=== PATIENT | male | born 1930 | race Caucasian/White ===

== ENCOUNTER 2016-03-02 17:04 | Emergency (ER) | payer BC, OTHER ==
[~2016-03-02] VITALS: Ht 177.8 cm; Wt 96.3 kg
[~2016-03-02 17:04] MED LIST: ASPI81TA28 PO; CHOL100010 PO; CRG25 PO; GLIM4TAB2 PO; LISI-461 PO; METF-384 PO
[2016-03-02 17:08] VITALS: TEMP 36.6; Ht 177.8 cm; Wt 96.3 kg
[2016-03-02] MEDS ORDERED: GLIM4TAB2 PO (17:22)
[2016-03-02] MEDS ORDERED: DVN80 PO (17:22)
--- NOTE | 2016-03-02 17:22 | EMERGENCY ROOM VISIT NOTE ---
History Report prepared by Adan: Maik Ayala Under the Supervision of: Dr. Sarah Chavez M.D. 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 The patient's blood pressure reached 197/104 yesterday when he wasn't feeling well. His blood pressure is still elevated today. He saw his PCP four days ago for an annual check up. At that time his blood pressure was 110/60. The patient had a baby aspirin yesterday. He also complains of diarrhea and cramping of his bilateral hands. The patient denies vomiting. He has not had any recent medication changes. Source of History: patient Onset: yesterday Symptom Intensity: 197/104 Quality: other (hypertensive) Timing: other (persistent) Associated Symptoms: + diarrhea, No vomiting Review of Systems See HPI for pertinent positives & negatives. A total of 10 systems reviewed and were otherwise negative. Past Medical & Surgical Medical Problems: (1) Hypertension Nos Surgical Problems: (1) History of appendectomy Family History FH: myocardial infarction FHx: diabetes mellitus Heart disease Social History Smoking Status: Never Smoker Alcohol Use: none Drug Use: none Marital Status: Housing Status: lives with family Occupation Status: retired Current/Historical Medications Scheduled Aspirin (Aspirin Ec), 81 MG PO DAILY Carvedilol (Carvedilol), 25 MG PO BID Cholecalciferol (Vitamin D), 2,000 INTER.UNIT PO DAILY Glimepiride (Glimepiride), 4 MG PO QAM Glimepiride (Glimepiride), 0.5 TAB PO QPM Metformin Hcl (Glucophage), 1,000 MG PO BID Valsartan (Diovan), 80 MG PO DAILY Allergies Coded Allergies: No Known Allergies (Verified , 03/02/16) Physical Exam Vital Signs Date Time Temp Pulse Resp B/P Pulse Ox O2 Delivery O2 Flow Rate FiO2 03/02/16 19:58 71 20 155/81 97 Room Air 03/02/16 19:28 73 21 170/96 100 Room Air 03/02/16 19:09 83 16 206/112 99 Room Air 03/02/16 18:44 96 Room Air 1/21/17 18:44 94 03/02/16 18:43 92 20 208/107 98 Room Air 03/02/16 17:08 36.6 75 20 218/102 98 Room Air Physical Exam CONSTITUTIONAL: No acute distress. HEENT: No icterus, moist mucous membranes NECK: No meningismus, trachea is midline. CARDIOVASCULAR: Regular rate, normal perfusion RESPIRATORY: Unlabored breathing. Clear to auscultation. GASTROINTESTINAL: Non-tender GENITOURINARY: No flank tenderness MUSCULOSKELETAL: Full range of motion NEUROLOGIC: No acute gross focal deficits. PSYCHIATRIC: Normal affect SKIN: Normal for ethnicity. Medical Decision & Procedures Laboratory Results 03/02/16 17:29 Red Blood Count 5.38, Mean Corpuscular Volume 90.9, Mean Corpuscular Hemoglobin 33.1, Mean Corpuscular Hemoglobin Concent 36.4, Mean Platelet Volume 9.8, Neutrophils (%) (Auto) 58.8, Lymphocytes (%) (Auto) 26.6, Monocytes (%) (Auto) 10.1, Eosinophils (%) (Auto) 3.9, Basophils (%) (Auto) 0.3, Neutrophils # (Auto ) 4.44, Lymphocytes # (Auto) 2.00, Monocytes # (Auto) 0.76, Eosinophils # (Auto ) 0.29, Basophils # (Auto) 0.02 03/02/16 17:29 Test 03/02/16 17:29 White Blood Count 7.53 K/uL (4.8-10.8) Red Blood Count 5.38 M/uL (4.7-6.1) Hemoglobin 17.8 g/dL (14.0-18.0) Hematocrit 48.9 % (42-52) Mean Corpuscular Volume 90.9 fL (80-100) Mean Corpuscular Hemoglobin 33.1 pg (25-34) Mean Corpuscular Hemoglobin Concent 36.4 g/dl (32-36) Platelet Count 158 K/uL (130-400) Mean Platelet Volume 9.8 fL (7.4-10.4) Neutrophils (%) (Auto) 58.8 % Lymphocytes (%) (Auto) 26.6 % Monocytes (%) (Auto) 10.1 % Eosinophils (%) (Auto) 3.9 % Basophils (%) (Auto) 0.3 % Neutrophils # (Auto) 4.44 K/uL (1.4-6.5) Lymphocytes # (Auto) 2.00 K/uL (1.2-3.4) Monocytes # (Auto) 0.76 K/uL (0.11-0.59) Eosinophils # (Auto) 0.29 K/uL (0-0.5) Basophils # (Auto) 0.02 K/uL (0-0.2) RDW Standard Deviation 44.6 fL (36.4-46.3) RDW Coefficient of Variation 13.6 % (11.5-14.5) Immature Granulocyte % (Auto) 0.3 % Immature Granulocyte # (Auto) 0.02 K/uL (0.00-0.02) Anion Gap 9.0 mmol/L (3-11) Est Creatinine Clear Calc Drug Dose 50.1 ml/min Estimated GFR () 58.5 Estimated GFR (Non- 50.5 BUN/Creatinine Ratio 18.3 (10-20) Calcium Level 9.6 mg/dl (8.5-10.1) Magnesium Level 1.9 mg/dl (1.8-2.4) Troponin I < 0.015 ng/ml (0-0.045) Labs reviewed by ED physician. Medications Administered Medications (Trade) Dose Ordered Sig/Fabiana Route Start Time Stop Time Status Last Admin Dose Admin Clonidine HCl (Catapres Tab) 0.1 mg NOW ONCE PO 03/02/16 18:45 03/02/16 18:46 DC 03/02/16 18:47 0.1 MG ECG Indication: other (hypertension) Rate (beats per minute): 84 Rhythm: sinus rhythm Findings: no acute ischemic change, no ectopy ED Course 1707: Past medical records reviewed. The patient was evaluated in room B2. A complete history and physical examination was performed. 1845: Catapres Tab 0.1 mg PO. 1949: Discussed the case with Dr. Cruz, [place] [facility]. The patient will be evaluated. Medical Decision Differential diagnosis includes electrolyte abnormality. 85 y/o presented to ED with for evaluation of concern over HTN. Patient has felt increasingly and episodically unwell over the past several days to weeks. He feels flushed and ill at times and when his BP is checked at home it has been as high as ~ 190-210 when symptomatic. Patient presented to his PCP for a scheduled routine evaluation this last week at which time his BP was normal and he was subsequently discharged. However, since the PCP visit patient continues to have episodes of feeling very unwell which are associated with highly abnormal BP measurements at home. He is noted to be on carvedilol and diovan with no recent medication changes and he maintains he has been compliant with his medication regimen. ROS o/w negative other than mild diarrhea and possibly some GERD-like complaints without CP, SOB, AMS nor headache. Because patient's SBP has been both as high as 210 while symptomatic at home as well as as low as 110 while asymptomatic without clear etiology decision made to keep patient in hospital for additional treatment and evaluation. Clonidine 0.1mg PO ordered. Evaluation with [facility] hospitalist service, Dr. Cruz, arranged. Consults Time Called: 1944 Consulting Physician: Dr. Cruz, [place] [facility] Returned Call: 1949 1949: Discussed the case with Dr. Cruz, [place] [facility]. The patient will be evaluated. Impression Primary Impression: Hypertension Scribe Attestation The scribe's documentation has been prepared under my direction and personally reviewed by me in its entirety. I confirm that the note above accurately reflects all work, treatment, procedures, and medical decision making performed by me. Departure Information Dispostion Being Evaluated By Hospitalist Referrals Miguel Olivares M.D. (PCP) Patient Instructions [facility]
[2016-03-02 17:45] LABS: BASO % 0.3 %; BASO ABS # 0.02 K/uL (0-0.2); COMPLETE YES; EOS % 3.9 %; HEMATOCRIT 48.9 % (42-52); IG% 0.3 %; LYMPH % 26.6 %; MEAN CELL VOLUME 90.9 fL (80-100); MEAN CORPUSCULAR HEMOGLOBIN 33.1 pg (25-34); MEAN CORPUSCULAR HGB CONC 36.4 g/dl (32-36); MEAN PLATELET VOLUME 9.8 fL (7.4-10.4); MONO % 10.1 %; NEUT % 58.8 %; PLATELET COUNT 158 K/uL (130-400); RED BLOOD COUNT 5.38 M/uL (4.7-6.1); WHITE BLOOD COUNT 7.53 K/uL (4.8-10.8)
[2016-03-02 18:06] LABS: BLOOD UREA NITROGEN 24 mg/dl (7-18); BUN/CREATININE RATIO 18.3 (10-20); CALCIUM 9.6 mg/dl (8.5-10.1); CARBON DIOXIDE 27 mmol/L (21-32); CHLORIDE 104 mmol/L (98-107); GLUCOSE 158 mg/dl (70-99); MAGNESIUM 1.9 mg/dl (1.8-2.4); POTASSIUM 4.2 mmol/L (3.5-5.1); SODIUM 140 mmol/L (136-145)
[2016-03-02 18:44] VITALS: O2SAT 96
[2016-03-02] MEDS ORDERED: CLONIDINE HCL 0.1 MG TAB PO ONE (18:45)
[2016-03-02 20:34] VITALS: BP 100/71; PULSE 73; O2SAT 95
--- NOTE | 2016-03-02 20:42 | Medical Consult ---
Consultation Date of Consultation: Mar 02, 2016. Attending Physician: Reason for Consultation: Uncontrolled HTN 85 y/o M w/Hx HTN, Angina, mild CKD. Pt states that his BP has been difficult to control over the last few days. He states that he gets paresthesias in his hands when his BP rises. He has had a few bouts of diarrhea over the past few days but did not come in for that reason. He denies a fever, denies CP, denies N/V, GOMEZ or visual changes. The pts systolic pressure was initially over 190 however he responded well to single dose of Clonidine. His symptoms have resolved and he requested that he be sent home. He admits to dietary indiscretion with copious sodium intake but did not state that he was willing to cut down. Past Medical/Surgical History Medical Problems: (1) Atypical chest pain Status: Acute (2) Hypertension Status: Acute Family History FH: myocardial infarction FHx: diabetes mellitus Heart disease Social History Smoking Status: Never Smoker Drug Use: none Marital Status: Housing Status: lives with family Occupation Status: retired Allergies Coded Allergies: No Known Allergies (Verified , 03/02/16) Review of Systems Constitutional: No chills, No fever, No sweats Eyes: No eye pain, No worsening of vision ENT: No hearing loss, No nasal symptoms, No unusual epistaxis Respiratory: No cough, No sputum, No wheezing Cardiovascular: No PND, No chest pain, No orthopnea Abdomen: + diarrhea, No nausea, No pain, No vomiting Musculoskeletal: No joint pain, No muscle pain Genitourinary - Male: No dysuria, No hematuria Neurologic: + numbness/tingling, No memory loss, No paralysis, No weakness Psychiatric: + depression symptoms Endocrine: No fatigue Hematologic / Lymphatic: No abnormal bleeding/bruising Integumentary: No rash Allergic / Immunologic: No environmental allergies Physical Exam Date Time Temp Pulse Resp B/P Pulse Ox O2 Delivery O2 Flow Rate FiO2 03/02/16 19:58 71 20 155/81 97 Room Air 03/02/16 19:28 73 21 170/96 100 Room Air 03/02/16 19:09 83 16 206/112 99 Room Air 03/02/16 18:44 96 Room Air 03/02/16 18:44 94 03/02/16 18:43 92 20 208/107 98 Room Air 03/02/16 17:08 36.6 75 20 218/102 98 Room Air General Appearance: WD/WN, no apparent distress Head: normocephalic, atraumatic Eyes: normal inspection, EOMI ENT: normal ENT inspection, pharynx normal Neck: supple, no JVD Respiratory/Chest: chest non-tender, lungs clear, normal breath sounds Cardiovascular: regular rate, rhythm, no edema, no gallop Abdomen/GI: normal bowel sounds, non tender, soft Back: normal inspection, no CVA tenderness, no muscle spasm, normal range of motion Extremities/Musculoskelatal: normal inspection, normal range of motion Neurologic/Psych: machine hand II-XII nml as tested, no motor/sensory deficits, alert, normal mood/affect, normal reflexes, oriented x 3 Skin: normal color, warm/dry, no rash Laboratory Results Last 24 Hours Test 03/02/16 17:29 White Blood Count 7.53 K/uL Red Blood Count 5.38 M/uL Hemoglobin 17.8 g/dL Hematocrit 48.9 % Mean Corpuscular Volume 90.9 fL Mean Corpuscular Hemoglobin 33.1 pg Mean Corpuscular Hemoglobin Concent 36.4 g/dl Platelet Count 158 K/uL Mean Platelet Volume 9.8 fL Neutrophils (%) (Auto) 58.8 % Lymphocytes (%) (Auto) 26.6 % Monocytes (%) (Auto) 10.1 % Eosinophils (%) (Auto) 3.9 % Basophils (%) (Auto) 0.3 % Neutrophils # (Auto) 4.44 K/uL Lymphocytes # (Auto) 2.00 K/uL Monocytes # (Auto) 0.76 K/uL Eosinophils # (Auto) 0.29 K/uL Basophils # (Auto) 0.02 K/uL RDW Standard Deviation 44.6 fL RDW Coefficient of Variation 13.6 % Immature Granulocyte % (Auto) 0.3 % Immature Granulocyte # (Auto) 0.02 K/uL Sodium Level 140 mmol/L Potassium Level 4.2 mmol/L Chloride Level 104 mmol/L Carbon Dioxide Level 27 mmol/L Anion Gap 9.0 mmol/L Blood Urea Nitrogen 24 mg/dl Creatinine 1.30 mg/dl Est Creatinine Clear Calc Drug Dose 50.1 ml/min Estimated GFR () 58.5 Estimated GFR (Non- 50.5 BUN/Creatinine Ratio 18.3 Random Glucose 158 mg/dl Calcium Level 9.6 mg/dl Magnesium Level 1.9 mg/dl Troponin I < 0.015 ng/ml Assessment & Plan EKG: sinus , RBBB, LAFB - no change form previous 85 y/o M w/Hx HTN, Angina, mild CKD. Pt states that his BP has been difficult to control over the last few days. He states that he gets paresthesias in his hands when his BP rises. He has had a few bouts of diarrhea over the past few days but did not come in for that reason. He denies a fever, denies CP, denies N/V, GOMEZ or visual changes. The pts systolic pressure was initially over 190 however he responded well to single dose of Clonidine. His symptoms have resolved and he requested that he be sent home. He admits to dietary indiscretion with copious sodium intake but did not state that he was willing to cut down. 1) Poorly controlled HTN - can lead to symptoms - paresthesias reported - Pt is following up with his primary MD - We have advised on dietary discretion and reduced sodium intake as an essential first step. If he is unable to comply with this we would recommend HS BP checks and addition of Clonidine QHS for SBP > 165. Although additional diuretics would be prudent with his reported salt intake, he may have had issues with an elevated creatinine previously. Would advise him to return to the hospital if he develops CP or neuro symptoms. 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 Total time for this consult - med rec - review of records, EKG - discussion with pt./ER attending 30 min
[2016-03-03] MEDS ORDERED: BLOOD PRESSURE PO (16:13)
[2016-03-04] MEDS ORDERED: NXM/40 PO (14:55)
[2016-03-04] MEDS ORDERED: SIME1CHW17 PO (14:55)
[2016-03-15] MEDS ORDERED: NXM/40 PO (10:51)
== END 2016-03-02 20:36 | disposition home or self-care (01) ==
LOC: C.EDB 17:06
DX: I10 Essential (primary) hypertension (principal); R19.7 Diarrhea, unspecified; I20.9 Angina pectoris, unspecified; Z79.82 Long term (current) use of aspirin; Z83.3 Family history of diabetes mellitus

== ENCOUNTER 2016-03-03 15:46 | Observation (INO) | payer BC ==
[~2016-03-03] VITALS: Ht 180.3 cm; Wt 95.3 kg
[~2016-03-03 15:46] MED LIST changes: +DVN80 PO; -LISI-461 PO
[2016-03-03] MEDS ORDERED: ONDANSETRON INJ 2 MG/ML 2 ML VIAL IV STA (16:01)
[2016-03-03] MEDS ORDERED: NITROGLYCERIN 0.4 MG SL PER TAB CHARGE SL STA (16:02)
[2016-03-03] MEDS ORDERED: BLOOD PRESSURE PO (16:13)
[2016-03-03] MEDS ORDERED: NITROGLYCERIN OINT 2% 1GM PACKET EXT ONE (16:15)
[2016-03-03 16:28] LABS: BASO % 0.1 %; BASO ABS # 0.01 K/uL (0-0.2); COMPLETE YES; EOS % 2.7 %; HEMATOCRIT 45.7 % (42-52); IG% 0.3 %; LYMPH % 30.9 %; LYMPH ABS # 2.29 K/uL (1.2-3.4); MEAN CELL VOLUME 88.7 fL (80-100); MEAN CORPUSCULAR HEMOGLOBIN 32.4 pg (25-34); MEAN CORPUSCULAR HGB CONC 36.5 g/dl (32-36); MEAN PLATELET VOLUME 9.6 fL (7.4-10.4); MONO % 9.3 %; NEUT % 56.7 %; PLATELET COUNT 152 K/uL (130-400); RED BLOOD COUNT 5.15 M/uL (4.7-6.1); WHITE BLOOD COUNT 7.42 K/uL (4.8-10.8)
[2016-03-03 16:43] LABS: ALT/SGPT 24 U/L (12-78); AST/SGOT 14 U/L (15-37); BLOOD UREA NITROGEN 21 mg/dl (7-18); BUN/CREATININE RATIO 16.1 (10-20); CALCIUM 8.9 mg/dl (8.5-10.1); CARBON DIOXIDE 24 mmol/L (21-32); CHLORIDE 104 mmol/L (98-107); GLUCOSE 181 mg/dl (70-99); POTASSIUM 4.3 mmol/L (3.5-5.1); SODIUM 139 mmol/L (136-145)
[2016-03-03 16:48] LABS: ALKALINE PHOSPHATASE 68 U/L (45-117); CKMB/CK RATIO 3.2 (0-3.0)
[2016-03-03] MEDS ORDERED: NSS + 20MEQ KCL 1000ML 1,000 ML IV SCH ×2 (17:33→17:45)
[2016-03-03] MEDS ORDERED: OPTIRAY 320 IV PRN (17:45)
--- NOTE | 2016-03-03 18:31 | DIAGNOSTIC IMAGING REPORT ---
CT ANGIOGRAM OF THE CHEST, ABDOMEN, AND PELVIS CLINICAL HISTORY: Chest and abdominal pain. Hypertension. Possible aortic dissection. COMPARISON STUDY: CT scan the abdomen pelvis dated 05/04/2015 TECHNIQUE: Before and following the IV administration of 117. mL of [id number], CT angiogram of the chest, abdomen, and pelvis was performed from the thoracic inlet to the proximal femurs. Images are reviewed in the axial, sagittal, and coronal planes. IV contrast was administered without complication. Imaged portions of the thyroid gland are normal in appearance. MIP imaging was performed. CT DOSE: 1429.20 mGy.cm FINDINGS: CHEST: Thoracic aorta: The thoracic aorta is normal in course and caliber, noting standard 3-vessel arch anatomy. No aneurysm or dissection is seen. Pulmonary vasculature: The pulmonary trunk is normal in caliber. There are no filling defects in the main, lobar, or segmental pulmonary branches to suggest pulmonary embolus. HEART: There are coronary artery calcifications present. Lungs and pleural spaces: No pleural effusions are visualized. There is no focal pulmonary consolidation. There is evidence for interstitial lung disease with subpleural reticulation. No honeycombing or traction bronchiectasis is visualized. Mediastinum: There are minimally enlarged mediastinal lymph nodes. Hellen: Hilar lymph nodes are the upper limits of normal in size Axilla: There is no evidence of pathologic axillary lymphadenopathy ABDOMEN AND PELVIS: Liver: No hepatic masses are visualized this arterial phase study. Gallbladder: Unremarkable. Spleen: Normal in size and attenuation. Pancreas: Unremarkable. Adrenal glands: Unremarkable. Kidneys: There are multiple bilateral renal cysts. The largest on the right measures 11.7 cm. The largest on the left measures 5.3 cm. Bowel: There are no transition zones indicate bowel obstruction. There is no evidence of acute diverticulitis. There is no evidence of acute appendicitis. Peritoneum: There is no intraperitoneal free air or abdominal ascites. Abdominal aorta: There is no evidence of aortic aneurysm or dissection. There is no evidence of celiac, superior mesenteric, or renal artery stenosis. The inferior mesenteric artery is patent. There is no evidence of common or external iliac artery stenosis. Adenopathy: None. Pelvic viscera: The prostate is enlarged. Skeletal structures: No destructive osseous lesions are seen. IMPRESSION: 1. No evidence of thoracic or abdominal aortic aneurysm or dissection 2. No evidence of superior mesenteric, celiac, or renal artery stenosis 3. No evidence of bowel obstruction. No evidence of free air 4. Multiple large renal cysts 5. Mild interstitial lung disease. Mildly prominent mediastinal lymph nodes, possibly reactive. Electronically signed by: Dmitry Carranza M.D. 03/03/2016 6:30 PM Dictated Date/Time: 03/03/2016 6:20 PM
[2016-03-03] MEDS ORDERED: ONDANSETRON INJ 2 MG/ML 2 ML VIAL IV PRN (19:15)
[2016-03-03] MEDS ORDERED: ZOLPIDEM TARTRATE 5 MG TAB PO PRN (19:15)
[2016-03-03] MEDS ORDERED: PROMETHAZINE HCL INJ 12.5 MG in SODIUM CHLORIDE 0.9% 50ML 50 ML IV PRN (19:15)
[2016-03-03] MEDS ORDERED: GLUCOSE 10 TABS/TUBE PO PRN (19:15)
[2016-03-03] MEDS ORDERED: DEXTROSE 50% 50 ML SYR IV PRN (19:15)
[2016-03-03] MEDS ORDERED: BISACODYL 10 MG SUPP PR PRN (19:15)
[2016-03-03] MEDS ORDERED: MoRPHine SULFATE 2 MG/ML CARP IV PRN (19:15)
[2016-03-03] MEDS ORDERED: NITROGLYCERIN 0.4 MG SL PER TAB CHARGE SL PRN (19:15)
[2016-03-03] MEDS ORDERED: ACETAMINOPHEN 325 MG TAB PO PRN (19:15)
[2016-03-03] MEDS ORDERED: GLUCAGON FOR INJ 1 MG VIAL SQ PRN (19:15)
[2016-03-03] MEDS ORDERED: LORAZEPAM 2 MG/ML 1 ML VIAL IV PRN (19:15)
[2016-03-03] MEDS ORDERED: GLUCOSE 40% GEL 15 GM TUBE PO PRN (19:15)
[2016-03-03] MEDS ORDERED: DiphenhydrAMINE HCL 50 MG/ML VIAL IV PRN (19:15)
[2016-03-03] MEDS ORDERED: MAGNESIUM HYDROXIDE SUSP 30 ML UDC PO PRN (19:15)
[2016-03-03] MEDS ORDERED: IV FLUIDS COMPLETED PRN (19:45)
[2016-03-03 20:01] LABS: CKMB/CK RATIO 3.9 (0-3.0)
--- NOTE | 2016-03-03 20:15 | EMERGENCY ROOM VISIT NOTE ---
History Report prepared by Adan: Maik Ayala Under the Supervision of: Dr. Arsenio Martinez M.D. First contact with patient: 15:57 Chief Complaint: HYPERTENSION Stated Complaint: HIGH BP,ABD BLOATING History of Present Illness The patient is an 85 year old male who presents to the Emergency Room with complaints of periodic band-like pressure across his chest, worsening over the past 24 hours. The patient was in the ED yesterday for hypertension. He started to experience the burning in his chest while he was in the ED. The patient also complains of nausea, diarrhea, and bloating of the abdomen. He denies any syncopal episodes, blood in his stools, or urinary symptoms. Source of History: patient Onset: yesterday Position: chest Quality: pressure Timing: other (periodic) Associated Symptoms: + diarrhea, + nausea, No LOC, No hematochezia, No urinary symptoms Review of Systems See HPI for pertinent positives & negatives. A total of 10 systems reviewed and were otherwise negative. Past Medical & Surgical Medical Problems: (1) Hypertension Nos (2) Hypokalemia Surgical Problems: (1) History of appendectomy Family History FH: myocardial infarction FHx: diabetes mellitus Heart disease Social History Smoking Status: Never Smoker Alcohol Use: none Drug Use: none Marital Status: Housing Status: lives with family Occupation Status: retired Current/Historical Medications Scheduled Aspirin (Aspirin Ec), 81 MG PO DAILY Carvedilol (Carvedilol), 25 MG PO BID Cholecalciferol (Vitamin D), 2,000 INTER.UNIT PO DAILY Glimepiride (Glimepiride), 4 MG PO QAM Glimepiride (Glimepiride), 0.5 TAB PO QPM Metformin Hcl (Glucophage), 1,000 MG PO BID Valsartan (Diovan), 80 MG PO DAILY [Blood Pressure ], 1 TAB PO DIRECTED Allergies Coded Allergies: No Known Allergies (Verified , 03/03/16) Physical Exam Vital Signs Date Time Temp Pulse Resp B/P Pulse Ox O2 Delivery O2 Flow Rate FiO2 03/03/16 20:00 78 18 118/63 98 03/03/16 18:03 74 16 129/67 99 03/03/16 16:52 75 03/03/16 16:38 78 18 118/73 95 Room Air 03/03/16 16:26 77 18 112/71 94 Room Air 03/03/16 16:20 67 18 157/81 97 Room Air 03/03/16 15:52 37.2 72 18 173/77 96 Room Air Physical Exam GENERAL: Patient is anxious appearing and in mild distress. HEENT: No acute trauma, normocephalic atraumatic, mucous membranes moist, no nasal congestion, no scleral icterus. NECK: No stridor, no adenopathy, no meningismus, trachea is midline. LUNGS: No dyspnea. Clear to auscultation and equal bilaterally. No wheeze, no rhonchi. HEART: Regular rate and rhythm. No murmurs, rubs, gallops appreciated. ABDOMEN: Soft, nontender, bowel sounds positive, no masses appreciated, no peritonitis. BACK: No midline tenderness, no CVA tenderness EXTREMITIES: Normal motion all extremities, no cyanosis, no edema. NEUROLOGIC: Alert and oriented, no acute motor or sensory deficits, no focal weakness, cranial nerves grossly intact. SKIN: No rash, no jaundice, no diaphoresis. Medical Decision & Procedures ER Provider Diagnostic Interpretation: CT results as stated below per interpretation by me and the radiologist: CT ANGIOGRAM OF THE CHEST, ABDOMEN, AND PELVIS CLINICAL HISTORY: Chest and abdominal pain. Hypertension. Possible aortic dissection. COMPARISON STUDY: CT scan the abdomen pelvis dated 05/04/2015 TECHNIQUE: Before and following the IV administration of 117. mL of [id number], CT angiogram of the chest, abdomen, and pelvis was performed from the thoracic inlet to the proximal femurs. Images are reviewed in the axial, sagittal, and coronal planes. IV contrast was administered without complication. Imaged portions of the thyroid gland are normal in appearance. MIP imaging was performed. CT DOSE: 1429.20 mGy.cm FINDINGS: CHEST: Thoracic aorta: The thoracic aorta is normal in course and caliber, noting standard 3-vessel arch anatomy. No aneurysm or dissection is seen. Pulmonary vasculature: The pulmonary trunk is normal in caliber. There are no filling defects in the main, lobar, or segmental pulmonary branches to suggest pulmonary embolus. HEART: There are coronary artery calcifications present. Lungs and pleural spaces: No pleural effusions are visualized. There is no focal pulmonary consolidation. There is evidence for interstitial lung disease with subpleural reticulation. No honeycombing or traction bronchiectasis is visualized. Mediastinum: There are minimally enlarged mediastinal lymph nodes. Hellen: Hilar lymph nodes are the upper limits of normal in size Axilla: There is no evidence of pathologic axillary lymphadenopathy ABDOMEN AND PELVIS: Liver: No hepatic masses are visualized this arterial phase study. Gallbladder: Unremarkable. Spleen: Normal in size and attenuation. Pancreas: Unremarkable. Adrenal glands: Unremarkable. Kidneys: There are multiple bilateral renal cysts. The largest on the right measures 11.7 cm. The largest on the left measures 5.3 cm. Bowel: There are no transition zones indicate bowel obstruction. There is no evidence of acute diverticulitis. There is no evidence of acute appendicitis. Peritoneum: There is no intraperitoneal free air or abdominal ascites. Abdominal aorta: There is no evidence of aortic aneurysm or dissection. There is no evidence of celiac, superior mesenteric, or renal artery stenosis. The inferior mesenteric artery is patent. There is no evidence of common or external iliac artery stenosis. Adenopathy: None. Pelvic viscera: The prostate is enlarged. Skeletal structures: No destructive osseous lesions are seen. IMPRESSION: 1. No evidence of thoracic or abdominal aortic aneurysm or dissection 2. No evidence of superior mesenteric, celiac, or renal artery stenosis 3. No evidence of bowel obstruction. No evidence of free air 4. Multiple large renal cysts 5. Mild interstitial lung disease. Mildly prominent mediastinal lymph nodes, possibly reactive. Electronically signed by: Dmitry Carranza M.D. 03/03/2016 6:30 PM Dictated Date/Time: 03/03/2016 6:20 PM Laboratory Results 03/03/16 16:16 Red Blood Count 5.15, Mean Corpuscular Volume 88.7, Mean Corpuscular Hemoglobin 32.4, Mean Corpuscular Hemoglobin Concent 36.5, Mean Platelet Volume 9.6, Neutrophils (%) (Auto) 56.7, Lymphocytes (%) (Auto) 30.9, Monocytes (%) (Auto) 9.3, Eosinophils (%) (Auto) 2.7, Basophils (%) (Auto) 0.1, Neutrophils # (Auto) 4.21, Lymphocytes # (Auto) 2.29, Monocytes # (Auto) 0.69, Eosinophils # (Auto) 0.20, Basophils # (Auto) 0.01 03/03/16 16:16 Test 03/03/16 16:16 03/03/16 19:28 White Blood Count 7.42 K/uL (4.8-10.8) Red Blood Count 5.15 M/uL (4.7-6.1) Hemoglobin 16.7 g/dL (14.0-18.0) Hematocrit 45.7 % (42-52) Mean Corpuscular Volume 88.7 fL (80-100) Mean Corpuscular Hemoglobin 32.4 pg (25-34) Mean Corpuscular Hemoglobin Concent 36.5 g/dl (32-36) Platelet Count 152 K/uL (130-400) Mean Platelet Volume 9.6 fL (7.4-10.4) Neutrophils (%) (Auto) 56.7 % Lymphocytes (%) (Auto) 30.9 % Monocytes (%) (Auto) 9.3 % Eosinophils (%) (Auto) 2.7 % Basophils (%) (Auto) 0.1 % Neutrophils # (Auto) 4.21 K/uL (1.4-6.5) Lymphocytes # (Auto) 2.29 K/uL (1.2-3.4) Monocytes # (Auto) 0.69 K/uL (0.11-0.59) Eosinophils # (Auto) 0.20 K/uL (0-0.5) Basophils # (Auto) 0.01 K/uL (0-0.2) RDW Standard Deviation 42.5 fL (36.4-46.3) RDW Coefficient of Variation 13.2 % (11.5-14.5) Immature Granulocyte % (Auto) 0.3 % Immature Granulocyte # (Auto) 0.02 K/uL (0.00-0.02) Anion Gap 11.0 mmol/L (3-11) Est Creatinine Clear Calc Drug Dose 50.5 ml/min Estimated GFR () 58.5 Estimated GFR (Non- 50.5 BUN/Creatinine Ratio 16.1 (10-20) Calcium Level 8.9 mg/dl (8.5-10.1) Total Bilirubin 0.6 mg/dl (0.2-1) Direct Bilirubin 0.1 mg/dl (0-0.2) Aspartate Amino Transf (AST/SGOT) 14 U/L (15-37) Alanine Aminotransferase (ALT/SGPT) 24 U/L (12-78) Alkaline Phosphatase 68 U/L (45-117) Total Protein 7.4 gm/dl (6.4-8.2) Albumin 3.9 gm/dl (3.4-5.0) Amylase Level 71 U/L (25-115) Lipase 466 U/L (73-393) Total Creatine Kinase 44 U/L (39-308) Creatine Kinase MB 1.7 ng/ml (0.5-3.6) Creatine Kinase MB Ratio 3.9 (0-3.0) Troponin I < 0.015 ng/ml (0-0.045) Laboratory results as reviewed by me. Medications Administered Medications (Trade) Dose Ordered Sig/Fabiana Route Start Time Stop Time Status Last Admin Dose Admin Ondansetron HCl (Zofran Inj) 4 mg NOW STAT IV 03/03/16 16:01 03/03/16 16:02 DC 03/03/16 16:21 4 MG Nitroglycerin 0.4 mg 0.4 mg NOW STAT SL 03/03/16 16:02 03/03/16 16:04 DC 03/03/16 16:21 0.4 MG Potassium Chloride/Sodium Chloride (Nss + 20meq KCl 1000ml) 1,000 ml @ 100 mls/hr Q10H IV 03/03/16 17:45 03/04/16 03:44 03/03/16 18:28 100 MLS/HR ECG Indication: chest pain Rate (beats per minute): 70 Rhythm: normal sinus Findings: T-wave inversion (Anterior), no acute ischemic change, no ectopy Comparison ECG Date: 02 March 2016 Change: When compared to EKG yesterday, ST depressions anteriorly have improved. There is a bifascicular block similar to yesterday. T wave inversions anteriorly are new compared to older EKGs. ED Course 1550: The patient was evaluated in room B3b. A complete history and physical exam was performed. 1601: Zofran 4 mg IV. 1602: Nitroglycerin 0.4 mg SL. 1615: Nitroglycerin 2 % Ointment 1 inch EXT. 1715: The patient feels a lot better but his stomach is rumbling, and he thinks something might be wrong. 1720: [facility] The patient will be evaluated. Medical Decision Differential: Cholecystitis, Gallbladder disfunction, Hepatic Disfunction, Gastritis/PUD, Pancreatitis, ACS, Aortic Pathology, amongst other pathologies entertained. 85 yr old male arrives for second day with pressure like band across bilateral lower chest, associated nausea, and feeling of stomach bloating. Review EKG actually somewhat improved from yesterday though suspect lead placement. There is evidence of changes compared to older ekgs. Trop negative thus may possibly unstable angina given on and off symptoms. Resolved with improvement in HTN. Abdomen is benign but given symptoms, elevated Lipase, HTN, seems reasonable getting ct abdomen and after discussion with hospitalist will make this CTA C/A/ P to rule out other disease. Given worsening symptoms seems reasonable bringing in for cardiac rule out and further monitoring. Consults Time Called: 1705 Consulting Physician: Dr. Robertson, [facility] Returned Call: 1720 1720: Discuss[facility] the case [facility] Dr[facility] The patient will be evaluated. Impression Primary Impression: Chest pressure Additional Impressions: HTN (hypertension) EKG abnormalities Scribe Attestation The scribe's documentation has been prepared under my direction and personally reviewed by me in its entirety. I confirm that the note above accurately reflects all work, treatment, procedures, and medical decision making performed by me. Departure Information Dispostion Being Evaluated By Hospitalist Referrals Miguel Olivares M.D. (PCP) Patient Instructions My [facility] Problem Qualifiers Additional Impressions: HTN (hypertension) Hypertension type: essential hypertension Qualified Codes: I10 - Essential ( primary) hypertension
[2016-03-03 20:39] VITALS: BP 118/70; PULSE 71; TEMP 36.6; O2SAT 96; Ht 180.3 cm; Wt 95.3 kg
--- NOTE | 2016-03-03 20:50 | History and Physical ---
History & Physical Date & Time of Service: Mar 03, 2016 at 20:42 Chief Complaint: Chest Pain, Hypokalemia Primary Care Physician: Miguel Olivares M.D. History of Present Illness Source: patient, spouse The patient is an 85-year-old male who presents to the emergency department with complaint of intermittent and light pressure across his chest has been gradually worsening over the past 24 hours since his visit in the emergency department last night being evaluated for volatile blood pressure. He's also had some intermittent nausea and bloating in his abdomen, along with a couple of loose stools. Past Medical/Surgical History Medical Problems: (1) Hypertension Nos Status: Chronic Surgical Problems: (1) History of appendectomy Status: Resolved Family History FH: myocardial infarction FHx: diabetes mellitus Heart disease Social History Smoking Status: Never Smoker Smokeless Tobacco Use: No Alcohol Use: none Drug Use: none Marital Status: Housing status: lives with family Occupational Status: retired Multi-Drug Resistant Organisms History of MDRO: No Allergies Coded Allergies: No Known Allergies (Verified , 03/03/16) Home Medications Scheduled Aspirin (Aspirin Ec), 81 MG PO DAILY Carvedilol (Carvedilol), 25 MG PO BID Cholecalciferol (Vitamin D), 2,000 INTER.UNIT PO DAILY Glimepiride (Glimepiride), 4 MG PO QAM Glimepiride (Glimepiride), 0.5 TAB PO QPM Metformin Hcl (Glucophage), 1,000 MG PO BID Valsartan (Diovan), 80 MG PO DAILY [Blood Pressure ], 1 TAB PO DIRECTED Review of Systems The patient denies lower extremity swelling, vision change, hearing change, sore throat, fevers, chills, sweats, blood in urine or stool, dysuria, urinary frequency or urgency, headache, rash, abnormal bruising or bleeding, imbalance, focal weakness, numbness or tingling in arms or legs, arthralgias or myalgias, back or neck pain, night sweats, or allergy symptoms. The review of systems is otherwise negative other than for that already noted above, and at least 10 systems have been reviewed. Physical Exam Vital Signs Date Time Temp Pulse Resp B/P Pulse Ox O2 Delivery O2 Flow Rate FiO2 03/03/16 20:00 78 18 118/63 98 03/03/16 18:03 74 16 129/67 99 03/03/16 16:52 75 03/03/16 16:38 78 18 118/73 95 Room Air 03/03/16 16:26 77 18 112/71 94 Room Air 03/03/16 16:20 67 18 157/81 97 Room Air 03/03/16 15:52 37.2 72 18 173/77 96 Room Air The patient is awake, well-developed and adequately nourished, alert and oriented 3, normocephalic and atraumatic, lying in bed and in no acute distress. HEENT--PERRL, EOMI, mucous membranes and oropharynx dry. Neck--supple, no JVD or bruits, thyroid normal, trachea midline, no adenopathy. Heart--normal S1 and S2, no extra beats, no murmurs, rubs or gallops. Lungs--clear bilaterally with good air movement, no respiratory distress, no accessory muscle use. Abdomen--normal bowel sounds and soft, nontender and nondistended, no hernias or masses, no organomegaly, mildly tympanitic. Extremities--no cyanosis, clubbing or edema. There are good distal pulses b/l. Dermatologic--normal skin turgor, normal color, warm and dry, no abnormal lymph nodes, no rash. Neurologic--cranial nerves II through XII grossly intact, motor and sensory examination normal. Rheumatologic--normal range of motion, nontender, muscles and joints. Psychiatric--flat affect. Diagnostics Laboratory Results Results Past 24 Hours Test 03/03/16 16:16 03/03/16 19:28 03/03/16 20:28 Range/Units White Blood Count 7.42 4.8-10.8 K/uL Red Blood Count 5.15 4.7-6.1 M/uL Hemoglobin 16.7 14.0-18.0 g/dL Hematocrit 45.7 42-52 % Mean Corpuscular Volume 88.7 80-100 fL Mean Corpuscular Hemoglobin 32.4 25-34 pg Mean Corpuscular Hemoglobin Concent 36.5 32-36 g/dl Platelet Count 152 130-400 K/uL Mean Platelet Volume 9.6 7.4-10.4 fL Neutrophils (%) (Auto) 56.7 % Lymphocytes (%) (Auto) 30.9 % Monocytes (%) (Auto) 9.3 % Eosinophils (%) (Auto) 2.7 % Basophils (%) (Auto) 0.1 % Neutrophils # (Auto) 4.21 1.4-6.5 K/uL Lymphocytes # (Auto) 2.29 1.2-3.4 K/uL Monocytes # (Auto) 0.69 0.11-0.59 K/uL Eosinophils # (Auto) 0.20 0-0.5 K/uL Basophils # (Auto) 0.01 0-0.2 K/uL RDW Standard Deviation 42.5 36.4-46.3 fL RDW Coefficient of Variation 13.2 11.5-14.5 % Immature Granulocyte % (Auto) 0.3 % Immature Granulocyte # (Auto) 0.02 0.00-0.02 K/uL Sodium Level 139 136-145 mmol/L Potassium Level 4.3 3.5-5.1 mmol/L Chloride Level 104 98-107 mmol/L Carbon Dioxide Level 24 21-32 mmol/L Anion Gap 11.0 3-11 mmol/L Blood Urea Nitrogen 21 7-18 mg/dl Creatinine 1.30 0.60-1.40 mg/dl Est Creatinine Clear Calc Drug Dose 50.5 ml/min Estimated GFR () 58.5 Estimated GFR (Non- 50.5 BUN/Creatinine Ratio 16.1 10-20 Random Glucose 181 70-99 mg/dl Calcium Level 8.9 8.5-10.1 mg/dl Total Bilirubin 0.6 0.2-1 mg/dl Direct Bilirubin 0.1 0-0.2 mg/dl Aspartate Amino Transf (AST/SGOT) 14 15-37 U/L Alanine Aminotransferase (ALT/SGPT) 24 12-78 U/L Alkaline Phosphatase 68 45-117 U/L Total Creatine Kinase 50 44 39-308 U/L Creatine Kinase MB 1.6 1.7 0.5-3.6 ng/ml Creatine Kinase MB Ratio 3.2 3.9 0-3.0 Troponin I < 0.015 < 0.015 0-0.045 ng/ml Total Protein 7.4 6.4-8.2 gm/dl Albumin 3.9 3.4-5.0 gm/dl Amylase Level 71 25-115 U/L Lipase 466 73-393 U/L Bedside Glucose 210 70-99 mg/dl Diagnostic Radiology Patient Name: CONCHITA CRUZ Unit Number: [id number] Dictated: 03/03/161819 Transcribed: 03/03/161819 ARG Printed Date/Time: [~ rep prt dt]/[~ rep prt tm] [~ rep ct labl] - [~ rep ct ivnm] [facility] [place] [address] Dictated: 03/03/161819 Transcribed: 03/03/161819 ARG Printed Date/Time: [~ rep prt dt]/[~ rep prt tm] [~ rep ct labl] - [~ rep ct ivnm] [~ rep ct add3]] CT ANGIOGRAM OF THE CHEST, ABDOMEN, AND PELVIS CLINICAL HISTORY: Chest and abdominal pain. Hypertension. Possible aortic dissection. COMPARISON STUDY: CT scan the abdomen pelvis dated 05/04/2015 TECHNIQUE: Before and following the IV administration of 117. mL of [id number], CT angiogram of the chest, abdomen, and pelvis was performed from the thoracic inlet to the proximal femurs. Images are reviewed in the axial, sagittal, and coronal planes. IV contrast was administered without complication. Imaged portions of the thyroid gland are normal in appearance. MIP imaging was performed. CT DOSE: 1429.20 mGy.cm FINDINGS: CHEST: Thoracic aorta: The thoracic aorta is normal in course and caliber, noting standard 3-vessel arch anatomy. No aneurysm or dissection is seen. Pulmonary vasculature: The pulmonary trunk is normal in caliber. There are no filling defects in the main, lobar, or segmental pulmonary branches to suggest pulmonary embolus. HEART: There are coronary artery calcifications present. Lungs and pleural spaces: No pleural effusions are visualized. There is no focal pulmonary consolidation. There is evidence for interstitial lung disease with subpleural reticulation. No honeycombing or traction bronchiectasis is visualized. Mediastinum: There are minimally enlarged mediastinal lymph nodes. Hellen: Hilar lymph nodes are the upper limits of normal in size Axilla: There is no evidence of pathologic axillary lymphadenopathy ABDOMEN AND PELVIS: Liver: No hepatic masses are visualized this arterial phase study. Gallbladder: Unremarkable. Spleen: Normal in size and attenuation. Pancreas: Unremarkable. Adrenal glands: Unremarkable. Kidneys: There are multiple bilateral renal cysts. The largest on the right measures 11.7 cm. The largest on the left measures 5.3 cm. Bowel: There are no transition zones indicate bowel obstruction. There is no evidence of acute diverticulitis. There is no evidence of acute appendicitis. Peritoneum: There is no intraperitoneal free air or abdominal ascites. Abdominal aorta: There is no evidence of aortic aneurysm or dissection. There is no evidence of celiac, superior mesenteric, or renal artery stenosis. The inferior mesenteric artery is patent. There is no evidence of common or external iliac artery stenosis. Adenopathy: None. Pelvic viscera: The prostate is enlarged. Skeletal structures: No destructive osseous lesions are seen. IMPRESSION: 1. No evidence of thoracic or abdominal aortic aneurysm or dissection 2. No evidence of superior mesenteric, celiac, or renal artery stenosis 3. No evidence of bowel obstruction. No evidence of free air 4. Multiple large renal cysts 5. Mild interstitial lung disease. Mildly prominent mediastinal lymph nodes, possibly reactive. Electronically signed by: Dmitry Carranza M.D. 03/03/2016 6:30 PM Dictated Date/Time: 03/03/2016 6:20 PM The status of this report is Signed. Draft = Not yet reviewed or approved by Radiologist. Signed = Reviewed and approved by Radiologist. <AttendingPhy></AttendingPhy> <FamilyPhy>Miguel Olivares M.D.</FamilyPhy> < PrimaryPhy>Miguel Olivares M.D.</PrimaryPhy> <UnitNumber>[id number]</UnitNumber> <VisitNumber>[id number]</VisitNumber> <PatientName>CONCHITA CRUZ</PatientName> < DateOfBirth>1930</DateOfBirth> <Location>[facility]</Location> <ServiceDate></ServiceDate> <MNE>ESINDI</MNE> <OrderingPhy>Arsenio Martinez M.D.</ OrderingPhy> <OrderingPhyMNE>f rep ord dr hoyos</OrderingPhyMNE> <DictatingPhyMNE> f rep dict dr hoyos</DictatingPhyMNE> <CCListMNE>f rep ct albertae</CCListMNE> < AdmittingPhyMNE>f pt admit dr hoyos</AdmittingPhyMNE> <AttendingPhyMNE>f pt attend dr hoyos</AttendingPhyMNE> <ConsultingPhyMNE>f pt consult dr hoyos</ConsultingPhyMNE> <FamilyPhyMNE>f pt fam dr hoyos</FamilyPhyMNE> <OtherPhyMNE>f pt other dr hoyos</OtherPhyMNE> < PrimaryPhyMNE>f pt prim care dr hoyos</PrimaryPhyMNE> <ReferringPhyMNE>f pt referring dr hoyos</ReferringPhyMNE> EKG EKG shows normal sinus rhythm at 70 bpm, right bundle branch block, left anterior fascicular block, and resolution of T-wave inversions in the anterior chest leads which had been noted on EKG of March 02. Impression Assessment and Plan Chest pain, with resolution of EKG changes noted from the previous evening--the patient will be admitted to the telemetry unit, for serial cardiac enzymes, cardiac rhythm monitoring, and a 2-D echocardiogram with Dopplers. He did have a CT angiogram of the chest, abdomen and pelvis, which was negative for aortic dissection or pulmonary embolism. We'll continue enteric-coated aspirin 81 mg by mouth daily, carvedilol 25 mg by mouth twice a day, and valsartan 80 mg by mouth daily. Abdominal pain and bloating--there was initial concern about the possibility of ischemic bowel, and therefore CT angiogram of the abdomen and pelvis was done, which was negative. His symptoms are more likely related to reflux and may be being aggravated by being on metformin, and therefore a trial off of metformin should be considered. He may also have an element of diabetic gastroparesis. We'll not start an H2 lucille or PPI at this time, but this should be considered. Diabetes mellitus--hold metformin 1000 mg by mouth twice a day glimepiride 2 mg in the evening. We'll continue glimepiride [address] on Accu-Cheks before meals and at bedtime with NovoLog coverage. Level of Care Telemetry Advanced Directives Existing Advance Directive: No Existing Living Will: No Existing Power of Electronics Test Engineer: No Resuscitation Status FULL RESUSCITATION VTE Prophylaxis VTE Risk Assessment Done? Y/N: Yes Risk Level: Moderate Given or contraindicated: SCD's
[2016-03-03] MEDS: ALUMINUM/MAGNESIUM/SIMETH (MAALOX MAX) 30 ML UDC PO PRN (21:06)
[2016-03-03] MEDS: CARVEDILOL 25 MG TAB PO SCH (21:42)
[2016-03-03] MEDS: INSULIN ASPART 100 UNITS/ML 3 ML PEN SC SCH (21:44)
[2016-03-03] MEDS: SIMETHICONE 80 MG CHEW PO SCH (23:25)
[2016-03-03] MEDS: NITROGLYCERIN OINT 2% 1GM PACKET EXT SCH (23:25)
[2016-03-03 23:34] VITALS: BP 147/76; PULSE 64; TEMP 36.5; O2SAT 98
[2016-03-03 23:59] VITALS: O2SAT 98
[2016-03-04] VITALS (11 sets, daily range): BP systolic 126–165; BP diastolic 60–81; PULSE 62–85; TEMP 36.5–36.8; O2SAT 95–99
[2016-03-04 03:46] LABS: BASO % 0.3 %; BASO ABS # 0.02 K/uL (0-0.2); COMPLETE YES; EOS % 2.7 %; IG% 0.1 %; LYMPH % 37.9 %; LYMPH ABS # 2.65 K/uL (1.2-3.4); MEAN CELL VOLUME 89.1 fL (80-100); MEAN CORPUSCULAR HEMOGLOBIN 32.4 pg (25-34); MEAN CORPUSCULAR HGB CONC 36.3 g/dl (32-36); MONO % 11.3 %; NEUT % 47.7 %; PLATELET COUNT 128 K/uL (130-400); WHITE BLOOD COUNT 6.99 K/uL (4.8-10.8)
[2016-03-04 03:56] LABS: INR 1.1 (0.9-1.1); PARTIAL THROMBOPLASTIN RATIO 1.2
[2016-03-04 04:04] LABS: BLOOD UREA NITROGEN 20 mg/dl (7-18); BUN/CREATININE RATIO 16.4 (10-20); CALCIUM 8.4 mg/dl (8.5-10.1); CARBON DIOXIDE 27 mmol/L (21-32); CHLORIDE 106 mmol/L (98-107); GLUCOSE 149 mg/dl (70-99); MAGNESIUM 2.1 mg/dl (1.8-2.4); SODIUM 142 mmol/L (136-145)
[2016-03-04 04:08] LABS: CKMB/CK RATIO 3.1 (0-3.0)
[2016-03-04] MEDS: SIMETHICONE 80 MG CHEW PO SCH ×2 (05:38→11:56)
[2016-03-04] MEDS: NITROGLYCERIN OINT 2% 1GM PACKET EXT SCH ×2 (05:38→11:57)
[2016-03-04] MEDS: INSULIN ASPART 100 UNITS/ML 3 ML PEN SC SCH ×2 (07:00→11:00)
[2016-03-04] MEDS: CARVEDILOL 25 MG TAB PO SCH (07:48)
[2016-03-04] MEDS ORDERED: PNEUMOCOCCAL ADMINISTRATION CHARGE ONE (08:00)
[2016-03-04] MEDS ORDERED: PNEUMOCOCCAL POLYSACCHARIDES 25 MCG/0.5 ML VIAL/SYR IM. ONE (08:00)
[2016-03-04] MEDS ORDERED: ASPIRIN 81 MG ECTAB PO SCH (09:00)
[2016-03-04] MEDS ORDERED: CHOLECALCIFEROL 1000 INTER.UNIT TAB PO SCH (09:00)
[2016-03-04] MEDS ORDERED: GLIMEPIRIDE 2 MG TAB PO SCH (09:00)
[2016-03-04] MEDS ORDERED: VALSARTAN 80 MG TAB PO SCH (09:00)
[2016-03-04] MEDS: ALUMINUM/MAGNESIUM/SIMETH (MAALOX MAX) 30 ML UDC PO PRN (10:43)
[2016-03-04 11:51] LABS: CKMB/CK RATIO 2.5 (0-3.0)
[2016-03-04] MEDS ORDERED: GI COCKTAIL PO ONE (12:15)
[2016-03-04] MEDS ORDERED: ALUMINUM/MAGNESIUM SUSP 18 ML, LIDOCAINE HCL 2% VISCOUS SOLN 6 ML, BARCODE IDENTIFIER 1 EA PO ONE ×2 (12:45)
[2016-03-04] MEDS ORDERED: SIME1CHW17 PO (14:55)
[2016-03-04] MEDS ORDERED: NXM/40 PO (14:55)
--- NOTE | 2016-03-04 14:59 | Discharge Instructions ---
Discharge Instructions Admission Reason for Admission: Chest Pain, Hypokalemia Discharge Discharge Diagnosis / Problem: abdominal pain Discharge Goals Goal(s): Decrease discomfort, Improve function, Increase independence, Improve disease control, Learn about illness, Diagnostic testing, Therapeutic intervention Activity Recommendations Activity Limitations: resume your previous activity Exercise/Sports Limitations: none Shower/Bathe: no limitations Driving or Machine Use: no limitations . Instructions / Follow-Up Instructions / Follow-Up Patient to be discharged home Discomfort is unlikely to be cardiac in nature Will provide gas x that can be taken every 6 hrs as needed for gas/belching Will also provide nexium to be take once day for ?gastritis/reflux Will need to follow up with Miguel Olivares in 1-2 weeks Current Hospital Diet Patient's current hospital diet: AHA Diet (Heart Healthy), Diabetes Type 2 Diet Discharge Diet Recommended Diet: Diabetes Type 2 Diet Pending Studies Studies pending at discharge: no Medical Emergencies . Who to Call and When: Medical Emergencies: If at any time you feel your situation is an emergency, please call 911 immediately. . Non-Emergent Contact Non-Emergency issues call your: Primary Care Provider Call Non-Emergent contact if: your pain is worsening . . "Provider Documentation" section prepared by Kostas Simpson. VTE Core Measure Inpt VTE Proph given/why not?: SCD's
--- NOTE | 2016-03-04 15:09 | Discharge Summary ---
Discharge Summary Admission Date: Mar 03, 2016 at 19:01 Discharge Date: Mar 04, 2016 Discharge Disposition: Home Principal Diagnosis: Abdominal pain Medication Reconciliation New Medications: Esomeprazole Magnesium (Nexium) 40 Mg Cap 1 CAP PO DAILY for 30 Days, #30 CAP 5 Refills Simethicone (Gas Relief) 80 Mg Chw 80 MG PO Q6, #30 TABS Continued Medications: Aspirin (Aspirin Ec) 81 Mg Tab 81 MG PO DAILY Carvedilol (Carvedilol) 25 Mg Tab 25 MG PO BID Cholecalciferol (Vitamin D) 1,000 Inter.unit Tab 2000 INTER.UNIT PO DAILY, TAB Glimepiride (Glimepiride) 4 Mg Tab 4 MG PO QAM Glimepiride (Glimepiride) 4 Mg Tab 0.5 TAB PO QPM, TAB 3 Refills Metformin Hcl (Glucophage) 1,000 Mg Tab 1000 MG PO BID Valsartan (Diovan) 80 Mg Tab 80 MG PO DAILY, TAB [Blood Pressure ] () 1 TAB PO DIRECTED Discharge Exam Review of Systems: Constitutional: No chills, No fever Respiratory: No cough, No dyspnea on exertion, No shortness of breath, No sputum Cardiovascular: No chest pain, No orthopnea Abdomen: + pain, No GI bleeding, No constipation, No diarrhea, No nausea, No vomiting Musculoskeletal: No joint pain, No muscle pain Genitourinary - Female: No dysuria, No urinary frequency Neurologic: No paralysis, No weakness Physical Exam: General Appearance: WD/WN, no apparent distress Neck: supple, no adenopathy Respiratory/Chest: chest non-tender, normal breath sounds Cardiovascular: no edema, no gallop Abdomen / GI: non tender, soft Neurologic/Psychiatric: alert, oriented x 3 Hospital Course Atypical chest pain, with resolution of EKG changes noted from the previous evening--the patient was admitted to the telemetry unit, for serial cardiac enzymes which was unremarkable x 3 sets. He did have a CT angiogram of the chest , abdomen and pelvis, which was negative for aortic dissection or pulmonary embolism. We'll continue enteric-coated aspirin 81 mg by mouth daily, carvedilol 25 mg by mouth twice a day, and valsartan 80 mg by mouth daily. No need for further testing at this time. Abdominal pain and bloating--there was initial concern about the possibility of ischemic bowel, and therefore CT angiogram of the abdomen and pelvis was done, which was negative. His symptoms are more likely related to reflux and may be being aggravated by being on metformin, and therefore a trial off of metformin should be considered. He may also have an element of diabetic gastroparesis. On discharge trial of PPI and gas X. Diabetes mellitus--hold metformin 1000 mg by mouth twice a day, glimepiride 2 mg in the evening. We'll continue glimepiride [address] on Accu-Cheks before meals and at bedtime with NovoLog coverage. Pt is FULL CODE Total Time Spent: Greater than 30 minutes This includes examination of the patient, discharge planning, medication reconciliation, and communication with other providers. Discharge Instructions Please refer to the electronic Patient Visit Report (Discharge Instructions) for additional information. Additional Copies To Miguel Olivares M.D.
[2016-03-15] MEDS ORDERED: NXM/40 PO (10:51)
== END 2016-03-04 16:11 | disposition home or self-care (01) ==
LOC: ENRESERVTM → ENRESERVDT → C.EDB 15:47 → C.2T 19:01
PROVIDERS: ADMIT Hospitalist; ATTEND Hospitalist
DX: R10.9 Unspecified abdominal pain (principal); E87.6 Hypokalemia; I10 Essential (primary) hypertension; J84.9 Interstitial pulmonary disease, unspecified; N28.1 Cyst of kidney, acquired; N40.0 Benign prostatic hyperplasia without lower urinary tract symptoms; R07.89 Other chest pain

== ENCOUNTER → 2016-03-20 | Day surgery (SDC) | payer BC, OTHER ==
[2016-03-15 10:55] VITALS: Ht 180.3 cm; Wt 94.5 kg
[~2016-03-20] VITALS: Ht 180.3 cm; Wt 94.5 kg
[~2016-03-20] MED LIST changes: +LIDOCAINE HCL 2% 2 ML VIAL (20MG/ML) ONE; +MIDAZOLAM HCL 1 MG/ML 2ML VIAL ONE; +NXM/40 PO; +PROPOFOL IV EMULSION 10 MG/ML 20 ML VIAL IV ONE; +SODIUM CHLORIDE 0.9% 500ML 500 ML IV ONE
[2016-03-20 14:59] VITALS: TEMP 36.6
--- NOTE | 2016-03-20 15:06 | Endo History and Physical ---
History & Physical Date of Service: Mar 20, 2016. Chief Complaint: abdominal pain Referring Physician: Dr. Miguel Olivares History of Present Illness 85 yo CM who presents for EGD secondary to abdominal pain. Past Medical History Hypertension Past Surgical History Hx Cardiac Surgery: No Hx Internal Defibrillator: No Hx Pacemaker: No Hx Abdominal Surgery: Yes (APPY) Hx of Implantable Prosthesis: No Hx Post-Op Nausea and Vomiting: No Hx Cancer Surgery: Yes (SKIN CANCER REMOVALS) Hx Thoracic Surgery: No Hx Orthopedic: Yes (LT RCR) Hx Urinary Tract Surgery: No Family History None Social History Smoking Status: Never Smoker Hx Substance Use: No Hx Alcohol Use: No Allergies Coded Allergies: No Known Allergies (Verified , 03/15/16) Current Medications Reported Home Medications Medications Dose Route/Sig Max Daily Dose Days Date Category Nexium (Esomeprazole Magnesium) 40 Mg Capcr 40 Mg PO QAM 03/15/16 Reported Glimepiride 4 Mg Tab 0.5 Tab PO QPM 03/02/16 Reported Diovan (Valsartan) 80 Mg Tab 80 Mg PO QAM 03/02/16 Reported Carvedilol 25 Mg Tab 25 Mg PO BID 09/26/15 Reported Glucophage (Metformin Hcl) 1,000 Mg Tab 1,000 Mg PO BID 06/30/14 Reported Glimepiride 4 Mg Tab 4 Mg PO QAM 06/30/14 Reported Vitamin D (Cholecalciferol) 1,000 Inter.unit Tab 2,000 Inter.unit PO QAM 10/26/13 Reported Aspirin Ec (Aspirin) 81 Mg Tab 81 Mg PO HS 10/26/13 Reported Vital Signs Weight (Kilograms): 94.55 Height (Feet): 5 Height (Inches): 11 Date Time Temp Pulse Resp B/P Pulse Ox O2 Delivery O2 Flow Rate FiO2 03/20/16 14:59 36.6 66 18 103/76 98 Room Air Physical Exam General Appearance: WD/WN, no apparent distress Respiratory/Chest: Auscultation: breath sounds normal Cardiovascular: Heart Auscultation: RRR Abdomen: Bowel Sounds: normal Inspection & Palpation: soft, non-distended, no tenderness, guarding & rebound Assessment and Plan Assessment: 85 yo CM who presents for EGD secondary to abdominal pain. Plan: Proceed with EGD.
--- NOTE | 2016-03-20 15:40 | GI REPORT ---
Procedure Date: 03/20/2016 3:17 PM Procedure: Upper GI endoscopy Indications: Epigastric abdominal pain Medicines: Monitored Anesthesia Care Complications: No immediate complications. Estimated Blood Loss: Estimated blood loss: none. Procedure: Pre-Anesthesia Assessment: - Prior to the procedure, a History and Physical was performed, and patient medications and allergies were reviewed. The patient's tolerance of previous anesthesia was also reviewed. The risks and benefits of the procedure and the sedation options and risks were discussed with the patient. All questions were answered, and informed consent was obtained. Prior Anticoagulants: The patient has taken aspirin, last dose was 1 day prior to procedure. ASA Grade Assessment: III - A patient with severe systemic disease. After reviewing the risks and benefits, the patient was deemed in satisfactory condition to undergo the procedure. After obtaining informed consent, the endoscope was passed under direct vision. Throughout the procedure, the patient's blood pressure, pulse, and oxygen saturations were monitored continuously. The scope was introduced through the mouth, and advanced to the second part of duodenum. The upper GI endoscopy was accomplished without difficulty. The patient tolerated the procedure well. Findings: The Z-line was irregular. A small hiatus hernia was present. Localized mild inflammation characterized by erythema was found in the gastric antrum. The examined duodenum was normal. Impression: - Z-line irregular. - Small hiatus hernia. - Gastritis. - Normal examined duodenum. - No specimens collected. Recommendation: - Resume previous diet. - Continue present medications. - Return to primary care physician as previously scheduled. Duglas Bryan, DO 03/20/2016 3:39:40 PM This report has been signed electronically. Note Initiated On: 03/20/2016 3:17 PM I attest to the content of the Intraoperative Record and orders documented therein, exceptions below
--- NOTE | 2016-03-20 15:43 | Discharge Instructions ---
Endoscopy Patient Instructions Date / Procedure(s) Performed Mar 20, 2016. EGD Allergy Information Coded Allergies: No Known Allergies (Verified , 03/15/16) Discharge Date / Findings Mar 20, 2016. Gastritis Hiatal hernia Medication Instructions Stopped Medication(s): stopped Metformin Friday,took ASA yesterday OK to resume all medications today as prescribed. Reported Home Medications Medications Dose Route/Sig Max Daily Dose Days Date Category Nexium (Esomeprazole Magnesium) 40 Mg Capcr 40 Mg PO QAM 03/15/16 Reported Glimepiride 4 Mg Tab 0.5 Tab PO QPM 03/02/16 Reported Diovan (Valsartan) 80 Mg Tab 80 Mg PO QAM 03/02/16 Reported Carvedilol 25 Mg Tab 25 Mg PO BID 09/26/15 Reported Glucophage (Metformin Hcl) 1,000 Mg Tab 1,000 Mg PO BID 06/30/14 Reported Glimepiride 4 Mg Tab 4 Mg PO QAM 06/30/14 Reported Vitamin D (Cholecalciferol) 1,000 Inter.unit Tab 2,000 Inter.unit PO QAM 10/26/13 Reported Aspirin Ec (Aspirin) 81 Mg Tab 81 Mg PO HS 10/26/13 Reported Provider Instructions Activity Restrictions - No exercising or heavy lifting for 24 hours. - Do not drink alcohol the day of the procedure. - Do not drive a car or operate machinery until the day after the procedure. - Do not make any important decisions or sign important papers in 24 hours after the procedure. Following Day: - Return to full activity which may include returning to work/school. Diet Start your diet with liquids and light foods (jello, soup, juice, toast). Then eat your usual diet if not nauseated. Treatment For Common After Affects For mild abdominal pain, bloating, or excessive gas: - Rest - Eat lightly - Lie on right side Follow-Up Information Follow-up with Dr. Miguel Olivares as scheduled Anesthesia Information What You Should Know You have had a procedure that required some medicine to reduce anxiety and discomfort. This treatment is called moderate sedation. After receiving the treatment, you may be sleepy, but you will be able to breathe on your own. The effects of the treatment may last for several hours. Follow these instructions along with Activity/Diet recommendations noted above: * Do NOT do anything where dizziness or clumsiness would be dangerous. * Rest quietly at home today, then you can be up and about tomorrow. * Have a responsible person stay with you the rest of today. * You may have had an I.V. today. If so, you may take the dressing off later today. Recommendations Call your doctor if: * Trouble breathing * Continuous vomiting for more than 24 hours * Temperature above 101 degrees * Severe abdominal pain or bloating * Pain not relieved by pain medicine ordered * There is increased drainage or redness from any incision * A large amount of rectal bleeding greater than 2-3 tablespoons. (If you had a polyp/s removed or have hemorrhoids, a small amount of blood - from the rectum is to be expected.) * You have any unanswered questions or concerns. IN THE EVENT OF A SERIOUS EMERGENCY, GO TO THE NEAREST EMERGENCY ROOM Your discharge instructions were prepared by provider Duglas Bryan. Patient Instructions Signature Page [place] Rodrigez Patient (or Guardian) Signature/Date: I have read and understand the instructions given to me by my caregivers. Caregiver/RN/Doctor Signature/Date: The above-named patient and/or guardian has received patient instructions on this date. + Original Patient Signature Page (only) stays with chart. Please make copy for patient.
[2016-03-20 16:12] VITALS: BP 126/69; PULSE 62; O2SAT 97
--- NOTE | 2016-03-20 17:01 | Anesthesiology Progress Note ---
Anesthesia Post Op Note Date & Time Mar 20, 2016 at 17:00 Vital Signs Pain Intensity: 0 Vital Signs Past 12 Hours Date Time Temp Pulse Resp B/P Pulse Ox O2 Delivery O2 Flow Rate FiO2 03/20/16 16:12 62 20 126/69 97 Room Air 03/20/16 15:57 66 20 98/66 96 Room Air 03/20/16 15:42 71 18 113/62 95 Room Air 03/20/16 14:59 36.6 66 18 103/76 98 Room Air Notes Mental Status: alert / awake / arousable, participated in evaluation Pt Amnestic to Procedure: Yes Nausea / Vomiting: adequately controlled Pain: adequately controlled Airway Patency, RR, SpO2: stable & adequate BP & HR: stable & adequate Hydration State: stable & adequate Anesthetic Complications: no major complications apparent
== END | disposition home or self-care (01) ==
LOC: C.GI 13:05
PROVIDERS: ATTEND Internal Medicine
DX: R10.13 Epigastric pain (principal); K44.9 Diaphragmatic hernia without obstruction or gangrene; K29.60 Other gastritis without bleeding; I10 Essential (primary) hypertension; Z79.82 Long term (current) use of aspirin

== ENCOUNTER → 2016-04-29 | Outpatient (CLI) | payer BC ==
[~2016-04-29] MED LIST changes: -LIDOCAINE HCL 2% 2 ML VIAL (20MG/ML) ONE; -MIDAZOLAM HCL 1 MG/ML 2ML VIAL ONE; -PROPOFOL IV EMULSION 10 MG/ML 20 ML VIAL IV ONE; -SODIUM CHLORIDE 0.9% 500ML 500 ML IV ONE
== END | disposition home or self-care (01) ==
LOC: C.PATHSPEC 13:37
PROVIDERS: ATTEND Dermatology
DX: L57.0 Actinic keratosis (principal)

== ENCOUNTER → 2016-08-20 | Outpatient (CLI) | payer OTHER ==
[~2016-08-20] MED LIST changes: -NXM/40 PO
--- NOTE | 2016-08-20 09:26 | DIAGNOSTIC IMAGING REPORT ---
LEFT HIP UNILATERAL 2 VIEWS CLINICAL HISTORY: L HIP PAIN pain COMPARISON: None. DISCUSSION: Moderate rather significant degenerative narrowing left hip joint space. No evidence for acetabular protrusion. Mild associated sclerosis of the acetabular margins. Minimal peripheral reactive osteophytic change. There is no evidence for soft tissue swelling. IMPRESSION: Moderate degenerative change. Electronically signed by: Dion Samson M.D. 08/20/2016 9:24 AM Dictated Date/Time: 08/20/2016 9:24 AM
== END | disposition home or self-care (01) ==
LOC: C.RADBC 09:01
PROVIDERS: ATTEND Physician Assistant
DX: M16.12 Unilateral primary osteoarthritis, left hip (principal); M25.552 Pain in left hip

== ENCOUNTER → 2016-09-09 | Outpatient (CLI) | payer OTHER ==
[2016-09-09 10:36] LABS: BASO % 0.2 %; BASO ABS # 0.01 K/uL (0-0.2); COMPLETE YES; EOS % 1.4 %; HEMATOCRIT 47.5 % (42-52); IG% 0.5 %; LYMPH ABS # 1.69 K/uL (1.2-3.4); MEAN CELL VOLUME 93.3 fL (80-100); MEAN CORPUSCULAR HEMOGLOBIN 33.4 pg (25-34); MEAN CORPUSCULAR HGB CONC 35.8 g/dl (32-36); MEAN PLATELET VOLUME 9.8 fL (7.4-10.4); NEUT % 60.9 %; PLATELET COUNT 141 K/uL (130-400); RED BLOOD COUNT 5.09 M/uL (4.7-6.1); WHITE BLOOD COUNT 6.27 K/uL (4.8-10.8)
[2016-09-09 11:05] LABS: ALT/SGPT 29 U/L (12-78); AST/SGOT 15 U/L (15-37); BLOOD UREA NITROGEN 28 mg/dl (7-18); BUN/CREATININE RATIO 21.3 (10-20); CALCIUM 9.7 mg/dl (8.5-10.1); CARBON DIOXIDE 28 mmol/L (21-32); CHLORIDE 107 mmol/L (98-107); GLUCOSE 235 mg/dl (70-99); POTASSIUM 4.2 mmol/L (3.5-5.1); SODIUM 142 mmol/L (136-145)
[2016-09-09 11:08] LABS: ALKALINE PHOSPHATASE 68 U/L (45-117)
[2016-09-09 11:20] LABS: ESTIMATED AVERAGE GLUCOSE 186 mg/dl; HA1C FLAG Normal (Normal)
== END | disposition home or self-care (01) ==
LOC: C.LAB1850 09:46
PROVIDERS: ATTEND Internal Medicine
DX: E11.42 Type 2 diabetes mellitus with diabetic polyneuropathy (principal)

== ENCOUNTER → 2017-03-10 | Outpatient (CLI) | payer OTHER ==
[2017-03-10 12:26] LABS: BASO % 0.1 %; BASO ABS # 0.01 K/uL (0-0.2); EOS % 4.4 %; EOS ABS # 0.31 K/uL (0-0.5); HEMATOCRIT 46.5 % (42-52); HEMOGLOBIN 16.5 g/dL (14.0-18.0); IG# 0.03 K/uL (0.00-0.02); LYMPH % 22.5 %; LYMPH ABS # 1.59 K/uL (1.2-3.4); MEAN CELL VOLUME 92.1 fL (80-100); MEAN CORPUSCULAR HEMOGLOBIN 32.7 pg (25-34); MEAN CORPUSCULAR HGB CONC 35.5 g/dl (32-36); MONO % 12.1 %; MONO ABS # 0.86 K/uL (0.11-0.59); NEUT % 60.5 %; NEUT ABS # 4.28 K/uL (1.4-6.5); PLATELET COUNT 132 K/uL (130-400); RED CELL DISTRIBUTION WIDTH CV 13.4 % (11.5-14.5); RED CELL DISTRIBUTION WIDTH SD 44.9 fL (36.4-46.3); WHITE BLOOD COUNT 7.08 K/uL (4.8-10.8)
[2017-03-10 12:34] LABS: ALBUMIN 3.8 gm/dl (3.4-5.0); BLOOD UREA NITROGEN 22 mg/dl (7-18); CALCIUM 9.3 mg/dl (8.5-10.1); CARBON DIOXIDE 27 mmol/L (21-32); GLUCOSE 256 mg/dl (70-99); LIPASE 481 U/L (73-393); PHOSPHORUS 2.5 mg/dl (2.5-4.9); POTASSIUM 4.2 mmol/L (3.5-5.1); SODIUM 137 mmol/L (136-145)
== END | disposition home or self-care (01) ==
LOC: C.LAB1850 10:18
PROVIDERS: ATTEND Internal Medicine Nephrology
DX: I10 Essential (primary) hypertension (principal); R10.9 Unspecified abdominal pain; R14.0 Abdominal distension (gaseous)

== ENCOUNTER 2018-07-02 10:12 | Inpatient (IN) ==
[2018-07-02 10:42] LABS: Basophils # (auto) 0.02 K/uL (0-0.2); Basophils % (auto) 0.3 %; Eosinophils # (auto) 0.19 K/uL (0-0.5); Eosinophils % (auto) 3.3 %; Hematocrit (blood only) 41.5 % (42-52); Immature Granulocytes # (auto) 0.01 K/uL (0.00-0.02); Immature Granulocytes % (auto) 0.2 %; Lymphocytes # (auto) 1.22 K/uL (1.2-3.4); Lymphocytes % (auto) 21.2 %; Mean Corpuscular Hgb Conc 36.1 g/dL (32-36); Mean Corpuscular Volume 93.3 fL (80-100); Mean Platelet Volume 9.4 fL (7.4-10.4); Monocytes # (auto) 0.56 K/uL (0.11-0.59); Monocytes % (auto) 9.7 %; Neutrophils # (auto) 3.75 K/uL (1.4-6.5); Neutrophils % (auto) 65.3 %; Platelet Count 139 K/uL (130-400); RDW Coefficient of Variation 13.7 % (11.5-14.5); RDW Standard Deviation 46.6 fL (36.4-46.3); Red Blood Count 4.45 M/uL (4.7-6.1); White Blood Count 5.75 K/uL (4.8-10.8)
[2018-07-02] MEDS ORDERED: NITROGLYCERIN SL 0.4 MG/TAB TAB SL STA (10:48)
[2018-07-02] MEDS ORDERED: ASPIRIN CHEW 324 MG PO STA (10:48)
--- NOTE | 2018-07-02 11:02 | XRay Report ---
XR chest 1V portable CLINICAL HISTORY: 87 years-old Male presenting with Chest Pain. TECHNIQUE: Portable upright AP view of the chest was obtained. COMPARISON: 04/25/2018. FINDINGS: Atherosclerosis of the aortic arch. Cardiac silhouette borderline enlarged. Elevation of the left hem idiaphragm. Slight added density of the left lung is similar to prior exam. No new focal opacity. No large effusion or pneumothorax. Degenerative changes of the thoracic spine. Upper abdomen normal. IMPRESSION: 1. Chronic changes of the left lung stable from prior. No superimposed infiltrate to suggest pneumon ia. 2. Borderline cardiomegaly. Electronically signed by: Miguel Hennessy M.D. 07/02/2018 11:00 AM
[2018-07-02 11:06] LABS: Alanine Aminotransferase 19 U/L (12-78); Albumin Level 3.7 gm/dl (3.4-5.0); Aspartate Aminotransferase 18 U/L (15-37); BUN Creatinine Ratio 13.5 (10-20); Blood Urea Nitrogen 19 mg/dl (7-18); Calcium 8.7 mg/dl (8.5-10.1); Carbon Dioxide 25 mmol/L (21-32); Chloride 104 mmol/L (98-107); Creatinine Clr Calc Pharmacy 44.9 ml/min; Est GFR (African American) 51.4; Est GFR (Non-African American) 44.3; Glucose 253 mg/dl (70-99); Magnesium 1.4 mg/dl (1.8-2.4); Potassium 4.3 mmol/L (3.5-5.1); Sodium 136 mmol/L (136-145)
[2018-07-02 11:11] LABS: Albumin Globulin Ratio 1.1 (0.9-2); Alkaline Phosphatase 72 U/L (45-117); Bilirubin,Total 0.6 mg/dl (0.2-1); Globulin 3.4 gm/dl (2.5-4.0); Phosphorus 2.1 mg/dl (2.5-4.9); Total Protein 7.1 gm/dl (6.4-8.2); Troponin I < 0.015 ng/ml (0-0.045)
[2018-07-02] MEDS ORDERED: POT PHOSPHATE MONOBASIC W/ SOD TAB PO STA (11:53)
[2018-07-02] MEDS ORDERED: MAGNESIUM OXIDE 400 MG TAB PO STA (11:53)
[2018-07-02 12:11] LABS: Lyme Ab IgG w/WB Rflx Negative (Negative); Lyme Ab IgM w/WB Rflx Negative (Negative)
--- NOTE | 2018-07-02 12:15 | History & Physical Report ---
Date of Service July 02, 2018 Assessment & Plan (1) Atypical chest pain: - Trend cardiac biomarkers, two sets were negative so dobutamine stress test was conducted and was significant for positive results. - Cardiology consult- Pt has outpatient follow up with Dr. 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 - Pt may benefit from antianginal medication such as imdur since he did have relieft with nitro in the ER. - EKG reviewed as above (2) Hypertension: - Continue antihypertensives: amlodipine 2.5 mg daily, aspirin 81 mg daily, carvedilol 25 mg BID, valsartan 160 mg daily, clonidine 0.1 mg daily - BP is well controlled (3) GERD (gastroesophageal reflux disease): - Continue pantoprazole 40 mg daily (4) Diabetes mellitus: - Last a1C =8.6 on 03/10/18 - ISS with accuchecks, achs - glucose elevated over 250 at time of admission, pt did take his morning medications today, hold glimepiride and metformin for now. (5) Neurogenic claudication: (6) Lumbago: (7) Bulging of cervical intervertebral disc: - Follows with pain management as an outpatient, stable. (8) DVT prophylaxis: - jennifer ramirez History of Present Illness Primary Care Provider: Miguel Olivares MD This is an 87 yo M with PMHx of HTN, CKD stage III, DM II, Vitamin D deficiency, lumbargo, neurogenic claudication, cervical spine disc disease, chewing tobacco use x 60 yrs, peripheral neuropathy who presents with the acute onset of chest pain. Pt notes a "electrical like shocking sensation across his chest and upper stomach" has been going on for the past 2 weeks, and that it occurs when doing physical activity. He has been able to get the pain to go away by resting. Last evening he states "just didn't feel right" and went to bed. Upon waking up this morning, pt notes that he continued to have the same chest pain and then developed left sided jaw pain. He denies any arm pain, sob, palpitations, lightheadedness, or dizziness. He reports not wanting to stay in the hospital as he has a friend from out of town visiting, and they are supposed to watch a softball game at 4pm. It's currently pouring down rain outside, however he still does not wish to stay. Pt has been eating and drinking well. No other acute complaints. Pts is at bedside. Pt was administered 1 dose of nitroglycerin in the ER, his cp has since resolved. No other complaints. Troponins x 2 were obtained and negative, then a dobutamine stress test was conducted and showed positive results. Allergies Allergy/AdvReac Type Severity Reaction Status Date / Time No Known Allergies Allergy Verified 07/02/18 11:18 Home Medications Home Medications Medication Instructions Recorded Confirmed Type aspirin 81 mg tablet,delayed 81 mg PO QAM 03/12/18 07/02/18 History release carvedilol 25 mg tablet 25 mg PO BID 03/12/18 07/02/18 History cholecalciferol (vitamin D3) 2,000 2,000 units PO DAILY 03/12/18 07/02/18 History unit capsule glimepiride 4 mg tablet 4 mg PO QAM 03/12/18 07/02/18 History metformin 1,000 mg tablet 1,000 mg PO BID 03/12/18 07/02/18 History pantoprazole 40 mg tablet,delayed 40 mg PO QAM 03/12/18 07/02/18 History release valsartan 160 mg tablet 160 mg PO QAM 03/12/18 07/02/18 History clonidine HCl 0.1 mg PO UD PRN 04/25/18 07/02/18 History amlodipine 2.5 mg PO DAILY 07/02/18 07/02/18 History glimepiride 4 mg PO QPM 07/02/18 07/02/18 History Past Med/Surg History Medical History Diabetes mellitus (Chronic) Chest pain (Resolved 10/27/13) Helicobacter pylori ab+ (Resolved 10/27/13) Chest pain (Resolved) H. 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 Beliefs That Will Affect Care: None Current Living Situation: Spouse Other Information That Helps Us Care for You: No Feels Safe at Home: Yes Safety Concerns: Feels Safe At This Time Smoking Status: Current every day smoker Tobacco Type: smokeless tobacco Do You Dip or Chew Tobacco: Yes (1 can/day) Hx Alcohol Use: No Hx Substance Use: No Review of Systems Review of Systems: Constitutional: No fever, sweats or chills Eyes: No diplopia, no worsening or blurred vision ENT: normal hearing, no trouble swallowing Respiratory: No cough, sputum, dyspnea at rest or on exertion Cardiovascular: As per HPI. Pt currently without chest pain, jaw pain. Abdomen: No pain, nausea, vomiting, diarrhea or constipation Musculoskeletal: No joint pain, calf pain, swelling Neurologic: No weakness, numbness/tingling, or balance problems Psychiatric: No anxiety or depression Skin: No rash or itch Physical Exam Physical Exam: General: awake, alert, no apparent distress Head: Normocephalic, atraumatic ENT: PERRL, EOMI, no pharyngeal exudate, mucous membranes moist Chest: No chest pain on palpation, clear to auscultation, on room air, no adventitious breath sounds Cardiac: Regular rate and rhythm, no murmur, no JVD, normal peripheral pulses, good capillary refill Abdominal: NABS x 4 quadrants, soft, nontender to palpation, no rebound, guarding or tenderness Extremities: Normal inspection, no peripheral edema or erythema, calfs nontender to palpation Psych: Normal mood and affect Neuro: AAO x 3, strength intact bilaterally and related 5/5, no motor deficits, speech is clear, no peripheral sensory deficits Constitutional: WD/WN, vitals as above Eyes: normal visual pro by confrontation and + anicteric sclerae Neck: normal visual inspection and trachea midline Respiratory: normal respiratory effort, lungs clear to auscultation Cardiovascular: Rate/Rhythm: regular rate and regular rhythm Gastrointestinal (Abdomen): Inspection/Auscultation: abdomen not distended Percussion/Palpation: abdomen soft; abdomen nontender Musculoskeletal: Head/Neck/Chest: normocephalic and head atraumatic Neg for peripheral LE edema, + pedal pulses Skin: no rashes, warm and dry Neurologic: awake; not confused Speech / Cognition: normal speech Psychiatric: A+Ox3, euthymic affect Lymphatic: Exam as done by Alyssa Portillo DO Results & Data Vital Signs (Past 12 Hours) Vital Signs Temp Pulse Pulse Resp BP BP Pulse Ox 07/02/18 10:58 75 19 150/84 H 98 07/02/18 10:26 75 18 184/83 H 98 07/02/18 10:15 36.8 C 73 21 184/83 H 98 Diagnostic Findings XR chest 1V portable CLINICAL HISTORY: 87 years-old Male presenting with Chest Pain. TECHNIQUE: Portable upright AP view of the chest was obtained. COMPARISON: 04/25/2018. FINDINGS: Atherosclerosis of the aortic arch. Cardiac silhouette borderline enlarged. Elevation of the left hemidiaphragm. Slight added density of the left lung is similar to prior exam. No new focal opacity. No large effusion or pneumothorax. Degenerative changes of the thoracic spine. Upper abdomen normal. IMPRESSION: 1. Chronic changes of the left lung stable from prior. No superimposed infiltrate to suggest pneumonia. 2. Borderline cardiomegaly. ECG Additional Comments: 02-JUL-2018 10:19:24 [facility]-EDSTAT ROUTINE RETRIEVAL Poor data quality, interpretation may be adversely affected Sinus rhythm with 1st degree A-V block Right bundle branch block Left anterior fascicular block Bifascicular block Septal infarct (cited on or before 25-APR-2018) Possible Lateral infarct , age undetermined Abnormal ECG When compared with ECG of 25-APR-2018 19:38, WV interval has increased ... 25mm/s 10mm/mV 150Hz 9.0.8 12SL 241 HD ALEC: 12 Referred by: E Unconfirmed Vent. rate 81 BPM WV interval 218 ms QRS duration 134 ms QT/QTc 400/464 ms P-R-T axes 42 -68 8 Code Status & VTE Plan Code Status Full Code Supervising Physician Co-Signing Physician Notes Pt seen and examined by me. Denies chest pain or SOB currently, but hx of chest pain as noted above. Tolerating PO without issue. Agree with HPI/ROS as noted by PA See above for my exam in PE section Agree with plan as outlined above Pt was initially requesting d/c home due to visitors and activities planned with them This was discussed by both Ms. Wall and myself given pt's sx and risk factors Pt agreed to repeat trop and stress testing if it was neg Stress testing + for ischemia Pt admitted for further work-up Christian Espinoza (1) Hypertension Hypertension type: unspecified Qualified Code(s): I10 - Essential (primary) hypertension
[2018-07-02] MEDS ORDERED: ATROPINE SULFATE 0.1 MG/ML 10ML SYR IV ONE (14:03)
[2018-07-02] MEDS ORDERED: METOPROLOL TARTRATE 1 MG/ML VIAL IV ONE (14:03)
[2018-07-02] MEDS ORDERED: DOBUTamine HCL 12.5 MG/ML 20 ML VIAL IV ONE (14:03)
--- NOTE | 2018-07-02 14:22 | Emergency Department Note ---
Entered by Yuki Mitchell acting as a scribe for History of Present Illness General Chief complaint: Chest Pain Stated complaint: CHEST TIGHTNESS, PAIN IN LOWER JAW Time Seen by Provider: 07/02/18 10:24 Source: patient Mode of arrival: ambulatory Limitations: no limitations History of Present Illness Provider complaint: chest pain Onset (ago): hour(s) (last night) Location: chest Radiation: other (jaw) Pain Consistency: + intermittent Maximum Pain Intensity: 5 Relieved By: + none Exacerbated By: + none Associated symptoms: no diaphoresis, no fever/chills and no shortness of breath The patient is an 87 year old white male with a past medical history of HTN, HLD and diabetes who presents to the ER with complaints of an intermittent chest pain that began last night. The patient reports that the pain radiates to his lower jaw and is not positional or exertional. He denies anything making his symptoms better or worse. He also denies any fevers, diaphoresis or shortness of breath. He states that he did have a tick bite a month ago. Home Medications Home Medications Medication Instructions Recorded Confirmed Type aspirin 81 mg tablet,delayed 81 mg PO QAM 03/12/18 07/02/18 History release carvedilol 25 mg tablet 25 mg PO BID 03/12/18 07/02/18 History cholecalciferol (vitamin D3) 2,000 2,000 units PO DAILY 03/12/18 07/02/18 History unit capsule glimepiride 4 mg tablet 4 mg PO QAM 03/12/18 07/02/18 History metformin 1,000 mg tablet 1,000 mg PO BID 03/12/18 07/02/18 History pantoprazole 40 mg tablet,delayed 40 mg PO QAM 03/12/18 07/02/18 History release valsartan 160 mg tablet 160 mg PO QAM 03/12/18 07/02/18 History clonidine HCl 0.1 mg PO UD PRN 04/25/18 07/02/18 History amlodipine 2.5 mg PO DAILY 07/02/18 07/02/18 History glimepiride 4 mg PO QPM 07/02/18 07/02/18 History Allergies Allergy/AdvReac Type Severity Reaction Status Date / Time No Known Allergies Allergy Verified 07/02/18 11:18 Past Med/Surg History Medical History Diabetes mellitus (Chronic) Chest pain (Resolved 10/27/13) Helicobacter pylori ab+ (Resolved 10/27/13) Chest pain (Resolved) H. pylori infection (Resolved) Dizziness (Resolved) Depression (Chronic) GERD (gastroesophageal reflux disease) (Chronic) Abdominal gas pain (Chronic) Arm pain, left (Resolved) Cardiac enzymes elevated (Resolved) Hypertension (Chronic) Hypokalemia (Resolved) Poorly-controlled hypertension (Chronic) Surgical History History of appendectomy (Resolved) Family History Other Family history non-contributory Social History Preferred Language: Italian Communication Ability: Effective Position Clerk Required: No Beliefs That Will Affect Care: None Current Living Situation: Spouse Other Information That Helps Us Care for You: No Feels Safe at Home: Yes Safety Concerns: Feels Safe At This Time Smoking Status: Current every day smoker Tobacco Type: smokeless tobacco Do You Dip or Chew Tobacco: Yes (1 can/day) Hx Alcohol Use: No Hx Substance Use: No Review of Systems See HPI for pertinent positives & negatives. and A total of 10 systems reviewed and were otherwise negative Physical Exam Vital Signs Vital Signs - 24 hr 07/02/18 10:15 07/02/18 10:26 07/02/18 10:57 Temperature 36.8 C Temperature Source Oral Sepsis Recent Fever Within 48 Hours No Sepsis Action Taken by Nursing No Action Required Pulse Rate 73 75 75 Pulse Rate [Apical] Pulse Rate from SpO2 Sensor 75 75 Pulse Rhythm Regular Pulse Strength Normal Respiratory Rate 21 18 18 Respiratory Effort / Characteristics Non-Labored Spontaneous Respiratory Depth Normal Blood Pressure 184/83 H 184/83 H 150/84 H Blood Pressure [Right Arm] Blood Pressure Mean 116 116 106 Blood Pressure Mean [Right Arm] Blood Pressure Position Lying Pulse Oximetry 98 98 98 Oxygen Delivery Method Room Air 07/02/18 10:58 07/02/18 11:04 07/02/18 11:30 Temperature Temperature Source Sepsis Recent Fever Within 48 Hours Sepsis Action Taken by Nursing Pulse Rate Pulse Rate [Apical] 75 Pulse Rate from SpO2 Sensor 81 84 Pulse Rhythm Pulse Strength Respiratory Rate 19 Respiratory Effort / Characteristics Respiratory Depth Blood Pressure Blood Pressure [Right Arm] 150/84 H Blood Pressure Mean Blood Pressure Mean [Right Arm] 106 Blood Pressure Position Pulse Oximetry 98 97 94 Oxygen Delivery Method Room Air 07/02/18 11:32 07/02/18 12:00 07/02/18 12:30 Temperature Temperature Source Sepsis Recent Fever Within 48 Hours Sepsis Action Taken by Nursing Pulse Rate 83 77 69 Pulse Rate [Apical] Pulse Rate from SpO2 Sensor 83 74 75 Pulse Rhythm Pulse Strength Respiratory Rate 17 17 27 H Respiratory Effort / Characteristics Respiratory Depth Blood Pressure 116/62 124/72 Blood Pressure [Right Arm] Blood Pressure Mean 80 89 Blood Pressure Mean [Right Arm] Blood Pressure Position Pulse Oximetry 95 97 98 Oxygen Delivery Method 07/02/18 12:31 07/02/18 13:00 07/02/18 13:30 Temperature Temperature Source Sepsis Recent Fever Within 48 Hours Sepsis Action Taken by Nursing Pulse Rate 67 68 71 Pulse Rate [Apical] Pulse Rate from SpO2 Sensor 68 68 71 Pulse Rhythm Pulse Strength Respiratory Rate 19 15 14 Respiratory Effort / Characteristics Respiratory Depth Blood Pressure 146/69 H 139/78 Blood Pressure [Right Arm] Blood Pressure Mean 94 98 Blood Pressure Mean [Right Arm] Blood Pressure Position Pulse Oximetry 98 97 98 Oxygen Delivery Method 07/02/18 13:31 07/02/18 14:00 07/02/18 15:38 Temperature Temperature Source Sepsis Recent Fever Within 48 Hours Sepsis Action Taken by Nursing Pulse Rate 76 Pulse Rate [Apical] Pulse Rate from SpO2 Sensor 72 65 Pulse Rhythm Pulse Strength Respiratory Rate 14 20 Respiratory Effort / Characteristics Respiratory Depth Blood Pressure 167/95 H Blood Pressure [Right Arm] Blood Pressure Mean 119 Blood Pressure Mean [Right Arm] Blood Pressure Position Pulse Oximetry 98 96 Oxygen Delivery Method 07/02/18 15:40 07/02/18 16:00 07/02/18 16:30 Temperature Temperature Source Sepsis Recent Fever Within 48 Hours Sepsis Action Taken by Nursing Pulse Rate 90 88 79 Pulse Rate [Apical] Pulse Rate from SpO2 Sensor 91 H 87 Pulse Rhythm Pulse Strength Respiratory Rate 18 18 21 Respiratory Effort / Characteristics Respiratory Depth Blood Pressure 85/47 L 90/47 L 107/61 Blood Pressure [Right Arm] Blood Pressure Mean 59 61 76 Blood Pressure Mean [Right Arm] Blood Pressure Position Pulse Oximetry 95 Oxygen Delivery Method GENERAL: Well appearing, well nourished, NAD, non-toxic. Wearing glasses. EYE EXAM: Normal conjunctiva. PERRL, no anisocoria and EOM's grossly intact w/o pain. OROPHARYNX: Moist mucus membranes. Grossly normal dentition. NECK: Supple, no nuchal rigidity, no adenopathy, non-tender. no signs of meningismus. CHEST: No reproducible chest wall pain. LUNGS: Clear to auscultation. Normal chest wall mechanics. HEART: NSR, no MRG. ABDOMEN: Abdomen soft, non-tender, normo-active bowel sounds, no masses, no sahara ound or guarding. BACK: No CVA TTP. SKIN: No rashes and no bruising. UPPER EXTREMITIES: Upper extremities are grossly normal. LOWER EXTREMITIES: No pitting edema. No calf pain. Negative Patric's sign. NEURO EXAM: A&O x3, cranial nerves II-XII grossly intact, normal speech, moves all 4 extremities on command w/o issue. Course 1103: Past medical records reviewed. The patient was evaluated in room B7. A complete history and physical examination was performed. 1204: I discussed the patients case with Dr. Portillo [facility] Hospitalist. She will evaluate the patient for further management. 1257: I reviewed the patients case with Marilyn Wall PA-C. We will be repeating a troponin. If negative and if possible, they will conduct a stress test. 1500: The patient was signed out to Dr. Campos at the change of shifts. Administered Medications Amlodipine Besylate (Norvasc) 2.5 mg PO DAILY [facility] Stop: 08/02/18 08:59 Last Admin: 07/03/18 08:21 Dose: 2.5 mg Documented by: [id number] Aspirin (Ecotrin Ectab) 81 mg PO QAM [facility] Stop: 08/02/18 08:59 Last Admin: 07/03/18 08:21 Dose: 81 mg Documented by: [id number] Carvedilol (Coreg) 25 mg PO BID [facility] Stop: 08/01/18 20:59 Last Admin: 07/03/18 08:21 Dose: 25 mg Documented by: [id number] Admin: 07/02/18 21:01 Dose: 25 mg Documented by: [id number] Enoxaparin Sodium (Lovenox) 40 mg SQ QAM [facility] Stop: 08/02/18 08:59 Last Admin: 07/03/18 08:26 Dose: Not Given Documented by: [id number] Glimepiride (Amaryl) 4 mg PO QPM [facility] Stop: 08/01/18 20:59 Last Admin: 07/02/18 21:01 Dose: 4 mg Documented by: [id number] Insulin Aspart (Novolog Flexpen) 0 units SC ACHS [facility] Stop: 08/01/18 18:26 Last Admin: 07/03/18 08:25 Dose: 5 units Documented by: [id number] Cosigned by: [id number] Admin: 07/02/18 21:17 Dose: Not Given Documented by: [id number] Cosigned by: [id number] Admin: 07/02/18 18:26 Dose: Not Given Documented by: [id number] Cosigned by: [id number] Pantoprazole Sodium (Protonix) 40 mg PO QAM [facility] Stop: 08/02/18 08:59 Last Admin: 07/03/18 08:21 Dose: 40 mg Documented by: [id number] Valsartan (Diovan) 160 mg PO QAM [facility] Stop: 08/02/18 08:59 Last Admin: 07/03/18 08:21 Dose: 160 mg Documented by: [id number] Vitamin D (Vitamin D3) 2,000 units PO DAILY [facility] Stop: 08/02/18 08:59 Last Admin: 07/03/18 08:21 Dose: 2,000 units Documented by: [id number] Discontinued Medications Aspirin (Aspirin) 243 mg PO NOW STA Stop: 07/02/18 10:49 Last Admin: 07/02/18 10:57 Dose: 243 mg Documented by: [id number] Atropine Sulfate (Atropine Sulfate) Confirm Administered Dose 1 mg IV .STK-MED ONE Stop: 07/02/18 14:04 Last Admin: 07/02/18 15:25 Dose: 0.5 mg Documented by: [id number] Dobutamine HCl (Dobutrex) Confirm Administered Dose 250 mg IV .STK-MED ONE Stop: 07/02/18 14:04 Last Admin: 07/02/18 15:31 Dose: 1 dose Documented by: [id number] Magnesium Oxide (Mag-Ox) 800 mg PO NOW STA Stop: 07/02/18 11:54 Last Admin: 07/02/18 12:26 Dose: 800 mg Documented by: [id number] Metoprolol Tartrate (Lopressor) Confirm Administered Dose 10 mg IV .STK-MED ONE Stop: 07/02/18 14:04 Last Admin: 07/02/18 15:32 Dose: 10 mg Documented by: [id number] Nitroglycerin (Nitrostat) 0.4 mg SL NOW STA Stop: 07/02/18 10:49 Last Admin: 07/02/18 10:57 Dose: 0.4 mg Documented by: [id number] Nitroglycerin (Nitrostat) Confirm Administered Dose 0.4 mg .ROUTE .STK-MED ONE Stop: 07/02/18 15:16 Last Admin: 07/02/18 15:32 Dose: 0.4 mg Documented by: [id number] Potassium Phosphate (Phospha 250 Neutral 155-852-130 Mg) 2 tab PO NOW Stop: 07/02/18 11:54 Last Admin: 07/02/18 12:26 Dose: 2 tab Documented by: [id number] Medical Decision Making Medical Records Attestation: I reviewed the patient's medical records. Home Medications Current Medication List: was personally reviewed by me Laboratory Data Attestation: I reviewed the patient's lab results. Result diagrams: 07/03/18 05:17 07/03/18 05:17 Lab Results 07/02/18 07/02/18 07/02/18 Range/Units 10:35 10:35 10:35 WBC 5.75 (4.8-10.8) K/uL RBC 4.45 L (4.7-6.1) M/uL Hgb 15.0 (14.0-18.0) g/dL Hct 41.5 L (42-52) % MCV 93.3 (80-100) fL MCH 33.7 (25-34) pg MCHC 36.1 H (32-36) g/dL RDW Std Deviation 46.6 H (36.4-46.3) fL RDW Coeff of Allie 13.7 (11.5-14.5) % Plt Count 139 (130-400) K/uL MPV 9.4 (7.4-10.4) fL Immature Gran % (Auto) 0.2 % Neut % (Auto) 65.3 % Lymph % (Auto) 21.2 % Arroyo % (Auto) 9.7 % Eos % (Auto) 3.3 % Baso % (Auto) 0.3 % Immature Gran # (Auto) 0.01 (0.00-0.02) K/uL Neut # (Auto) 3.75 (1.4-6.5) K/uL Lymph # (Auto) 1.22 (1.2-3.4) K/uL Arroyo # (Auto) 0.56 (0.11-0.59) K/uL Eos # (Auto) 0.19 (0-0.5) K/uL Baso # (Auto) 0.02 (0-0.2) K/uL Sodium 136 (136-145) mmol/L Potassium 4.3 (3.5-5.1) mmol/L Chloride 104 (98-107) mmol/L Carbon Dioxide 25 (21-32) mmol/L Anion Gap 7.0 (3-11) BUN 19 H (7-18) mg/dl Creatinine 1.43 H (0.6-1.4) mg/dl Est Cr Clr Drug Dosing 44.9 ml/min Est GFR ( Amer) 51.4 Est GFR (Non-Af Amer) 44.3 BUN/Creatinine Ratio 13.5 (10-20) Glucose 253 H (70-99) mg/dl Calcium 8.7 (8.5-10.1) mg/dl Phosphorus 2.1 L (2.5-4.9) mg/dl Magnesium 1.4 L (1.8-2.4) mg/dl Total Bilirubin 0.6 (0.2-1) mg/dl AST 18 (15-37) U/L ALT 19 (12-78) U/L Alkaline Phosphatase 72 (45-117) U/L Troponin I < 0.015 (0-0.045) ng/ml Total Protein 7.1 (6.4-8.2) gm/dl Albumin 3.7 (3.4-5.0) gm/dl Globulin 3.4 (2.5-4.0) gm/dl Albumin/Globulin Ratio 1.1 (0.9-2) Lipase 345 (73-393) U/L Lyme Disease IgG Ab Negative (Negative) Lyme Disease IgM Ab Negative (Negative) 07/02/18 Range/Units 12:58 WBC (4.8-10.8) K/uL RBC (4.7-6.1) M/uL Hgb (14.0-18.0) g/dL Hct (42-52) % MCV (80-100) fL MCH (25-34) pg MCHC (32-36) g/dL RDW Std Deviation (36.4-46.3) fL RDW Coeff of Allie (11.5-14.5) % Plt Count (130-400) K/uL MPV (7.4-10.4) fL Immature Gran % (Auto) % Neut % (Auto) % Lymph % (Auto) % Arroyo % (Auto) % Eos % (Auto) % Baso % (Auto) % Immature Gran # (Auto) (0.00-0.02) K/uL Neut # (Auto) (1.4-6.5) K/uL Lymph # (Auto) (1.2-3.4) K/uL Arroyo # (Auto) (0.11-0.59) K/uL Eos # (Auto) (0-0.5) K/uL Baso # (Auto) (0-0.2) K/uL Sodium (136-145) mmol/L Potassium (3.5-5.1) mmol/L Chloride (98-107) mmol/L Carbon Dioxide (21-32) mmol/L Anion Gap (3-11) BUN (7-18) mg/dl Creatinine (0.6-1.4) mg/dl Est Cr Clr Drug Dosing ml/min Est GFR ( Amer) Est GFR (Non-Af Amer) BUN/Creatinine Ratio (10-20) Glucose (70-99) mg/dl Calcium (8.5-10.1) mg/dl Phosphorus (2.5-4.9) mg/dl Magnesium (1.8-2.4) mg/dl Total Bilirubin (0.2-1) mg/dl AST (15-37) U/L ALT (12-78) U/L Alkaline Phosphatase (45-117) U/L Troponin I < 0.015 (0-0.045) ng/ml Total Protein (6.4-8.2) gm/dl Albumin (3.4-5.0) gm/dl Globulin (2.5-4.0) gm/dl Albumin/Globulin Ratio (0.9-2) Lipase (73-393) U/L Lyme Disease IgG Ab (Negative) Lyme Disease IgM Ab (Negative) Imaging Data Radiologist's Impression: Radiology results as stated below per my review and the radiologist's interpretation: XR chest 1V portable CLINICAL HISTORY: 87 years-old Male presenting with Chest Pain. TECHNIQUE: Portable upright AP view of the chest was obtained. COMPARISON: 04/25/2018. FINDINGS: Atherosclerosis of the aortic arch. Cardiac silhouette borderline enlarged. Elevation of the left hemidiaphragm. Slight added density of the left lung is similar to prior exam. No new focal opacity. No large effusion or pneumothorax. Degenerative changes of the thoracic spine. Upper abdomen normal. IMPRESSION: 1. Chronic changes of the left lung stable from prior. No superimposed inf iltrate to suggest pneumonia. 2. Borderline cardiomegaly. Electronically signed by: Miguel Hennessy M.D. 07/02/2018 11:00 AM ECG Data Attestation: I personally reviewed and interpreted this ECG as follows: Indication: chest pain Rate (beats per minute): 81 Rhythm: sinus rhythm Findings: + other (wide QRS), + 1st degree AV block, + RBBB, + T-wave inversion (in lead 3) and + left axis deviation Comparison ECG Date: from (25-APR-2018) Change: the following changes noted (MT intervals is longer) Blood Pressure Blood Pressure Findings: Elevated blood pressure Blood Pressure Disposition: further management by hospitalist MDM Narrative The patient is an 87 year old white male with a past medical history of HTN, HLD and diabetes who presents to the ER with complaints of an intermittent chest pain that began last night. Differential diagnosis includes: cardiac ischemia, aortic dissection, pulmonary embolism, pneumonia, pneumothorax, musculoskeletal, infections, pericarditis, myocarditis, esophageal rupture, gastrointestinal, as well as others were entertained. Patient was seen and evaluated after being seen and evaluated by the student physician. Patient had been complaining of some left-sided chest pressure with radiation to left jaw. Patient does not complain of diaphoresis nausea vomiting or exertional symptoms. The patient does use tobacco does have hypertension diabetes and cholesterol. Patient has no prior history of blood clots. The patient does not complain of any shortness of breath or worsening lower extremity swelling. Patient does not have any reproducible chest wall tenderness. Patient's EKG is fairly unchanged from prior. EKG is unremarkable. The patient does have an elevated heart score at 6 so I did speak the on-call hospitalist. Patient is wanting to go home so a repeat troponin was ordered which is negative. Subsequently a stress echocardiogram was ordered. Patient was signed out to the physician pending cardiac stress echo testing. There are discussed patient the hospitalist and there is anything abnormal he would be seen by both cardiology and the hospitalist service. The patient is artery received aspirin. Patient was chest pain-free at the time of the patient's to be mean stress echocardiogram. Impression & Plan Atypical chest pain, Encounter for tobacco use cessation counseling Discharge Plan Visit Data *Final* Discharge Date/Time: 07/02/18 18:00 Chief Complaint: Chest Pain Stated Complaint: CHEST TIGHTNESS, PAIN IN LOWER JAW ED Provider: Dami Peralta Discharge Problem: Atypical chest pain, Encounter for tobacco use cessation counseling Patient Disposition: Admitted As Inpatient Condition: Good Discharge Instructions Interventions: ED Discharge Assessment Last Done: 07/02/18 18:00 The scribe's documentation has been prepared under my direction and personally reviewed by me in its entirety. I confirm that the note above accurately reflects all work, treatment, procedures, and medical decision making performed by me.
[2018-07-02] MEDS ORDERED: NITROGLYCERIN SL 0.4 MG/TAB TAB ONE (15:15)
[2018-07-02] MEDS: INSULIN ASPART 100 UNITS/ML 3 ML PEN SC SCH ×2 (18:26→21:17)
[2018-07-02] MEDS ORDERED: ACETAMINOPHEN 325 MG TAB PO PRN (18:27)
[2018-07-02] MEDS ORDERED: ONDANSETRON INJ 2 MG/ML 2 ML VIAL IV PRN (18:27)
[2018-07-02] MEDS ORDERED: cloNIDine HCl 0.1 MG TAB PO PRN (18:27)
[2018-07-02] MEDS ORDERED: GLUCOSE 40% GEL 15 GM TUBE PO PRN (18:27)
[2018-07-02] MEDS ORDERED: GLUCOSE 10 TABS/TUBE PO PRN (18:27)
[2018-07-02] MEDS ORDERED: DEXTROSE 50% 50 ML SYRINGE IV PRN (18:27)
[2018-07-02] MEDS ORDERED: CARBOHYDRATES FOR HYPOGLYCEMIA PO PRN (18:27)
[2018-07-02] MEDS ORDERED: GLUCAGON FOR INJ 1 MG VIAL SQ PRN (18:27)
[2018-07-02] MEDS: CARVEDILOL 25 MG TAB PO SCH (21:01)
[2018-07-02] MEDS: GLIMEPIRIDE 2 MG TAB PO SCH (21:01)
[2018-07-03 05:44] LABS: Hematocrit (blood only) 37.7 % (42-52); Hemoglobin 13.9 g/dL (14.0-18.0); Mean Corpuscular Hgb Conc 36.9 g/dL (32-36); Mean Corpuscular Volume 91.3 fL (80-100); Mean Platelet Volume 9.4 fL (7.4-10.4); Platelet Count 133 K/uL (130-400); RDW Coefficient of Variation 13.5 % (11.5-14.5); RDW Standard Deviation 44.8 fL (36.4-46.3); Red Blood Count 4.13 M/uL (4.7-6.1)
[2018-07-03 06:04] LABS: INR 1.2 (0.9-1.1); Partial Thromboplastin Ratio 1.1; Partial Thromboplastin Time 29.9 Seconds (21.0-31.0); Prothrombin Time 11.9 Seconds (9.0-12.0)
[2018-07-03 06:14] LABS: Albumin Level 3.3 gm/dl (3.4-5.0); BUN Creatinine Ratio 13.4 (10-20); Calcium 9.1 mg/dl (8.5-10.1); Creatinine Clr Calc Pharmacy 44.4 ml/min; Est GFR (African American) 51.4; Est GFR (Non-African American) 44.3; Magnesium 1.5 mg/dl (1.8-2.4); Potassium 3.6 mmol/L (3.5-5.1)
[2018-07-03 06:18] LABS: Albumin Globulin Ratio 1.1 (0.9-2); Bilirubin,Total 0.5 mg/dl (0.2-1); Phosphorus 2.7 mg/dl (2.5-4.9); Total Protein 6.3 gm/dl (6.4-8.2)
[2018-07-03] MEDS: ASPIRIN 81 MG ECTAB PO SCH (08:21)
[2018-07-03] MEDS: VALSARTAN 80 MG TAB PO SCH (08:21)
[2018-07-03] MEDS: CARVEDILOL 25 MG TAB PO SCH ×2 (08:21→20:47)
[2018-07-03] MEDS: AMLODIPINE BESYLATE 5 MG TAB PO SCH (08:21)
[2018-07-03] MEDS: CHOLECALCIFEROL 1,000 UNITS TAB PO SCH (08:21)
[2018-07-03] MEDS: PANTOprazole 40 MG TAB PO SCH (08:21)
[2018-07-03] MEDS: INSULIN ASPART 100 UNITS/ML 3 ML PEN SC SCH ×4 (08:25→20:47)
[2018-07-03] MEDS: ENOXAPARIN INJ 40 MG/0.4 ML SYR SQ SCH (08:26)
--- NOTE | 2018-07-03 12:25 | Pre Anesthesia Assessment ---
Date of Service July 03, 2018 Pre Sedation Assessment Vital Signs Temp Pulse Pulse Resp BP BP Pulse Ox 07/03/18 11:19 36.7 C 75 19 133/54 L 96 07/03/18 07:54 36.8 C 68 19 131/63 97 07/03/18 03:12 36.9 C 60 16 99/59 L 97 07/02/18 23:02 36.7 C 64 18 109/65 97 07/02/18 19:00 36.8 C 76 18 130/68 97 07/02/18 18:27 36.6 C 64 64 20 135/80 99 07/02/18 18:00 72 20 112/70 07/02/18 17:00 67 17 111/64 07/02/18 16:30 79 21 107/61 07/02/18 16:00 88 18 90/47 L 07/02/18 15:40 90 18 85/47 L 95 07/02/18 15:38 20 07/02/18 14:00 96 07/02/18 13:31 76 14 167/95 H 98 07/02/18 13:30 71 14 98 07/02/18 13:00 68 15 139/78 97 07/02/18 12:31 67 19 146/69 H 98 07/02/18 12:30 69 27 H 98 Cardiovascular + regular rate Respiratory normal respiratory effort, lungs clear to auscultation Pre-Sedation Airway Assessment Smoking Status: Current every day smoker Hx Sleep Apnea: No Hx Difficult Intubation: No Short, Thick Neck: No Thyromental Distance: > or= 3.5 Finger Breadths Oral Cavity: + WNL Mallampati Class: III ASA: ASA3 Procedure Planning Contraindications for Sedation: none Current Medications Reviewed: Yes Notes The planned sedation has been discussed with the patient. Informed Consent was obtained. I have identified the patient, determined the appropriateness of sedation and have assessed the patient immediately prior to the procedure. All medicine(s) and interventions are by my order.
--- NOTE | 2018-07-03 12:29 | Cardiology Consultation ---
Date of Consultation July 03, 2018 Assessment & Plan (1) Chest pain: The symptoms which prompted the patient's emergency room evaluation are likely noncardiac. There is no evidence of an acute coronary syndrome at presentation. However, he does have other symptoms associated with exertion. These sound more anginal in nature. He does not describe the symptoms occurring at rest. The episodes themselves tend to be fairly brief and resolve quickly with rest. However, he did have a markedly abnormal stress echocardiogram yesterday. I suspect he does have significant coronary disease. We discussed several options for evaluation and treatment to include coronary angiography, subsequent intervention or even medical therapy. At this point the patient wishes to proceed with coronary angiography. I did describe the risks benefits and alternatives including possible need for bypass surgery not available at our facility. As he did eat breakfast we will wait the records that amount of time and plan on a catheterization this afternoon. Present on Admission?: Yes (2) Poorly-controlled hypertension: He has occasional elevations in blood pressure. During stress testing yesterday he had market elevation in his blood pressure which did respond quickly to anti hypertensives and rest. He is on an aggressive outpatient medical regimen with p.r.n. clonidine use. Currently followed in [facility]. 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 However, he does not appear to be overtly symptomatic from this conduction disease. He did not report symptoms of significant dizziness, lightheadedness or syncope. He may have impaired chronotropic competence, but this does not appear to produce symptoms as he does not ambulate frequently. No current indication for additional evaluation or pacing. Currently on maximal dose carvedilol without evidence of higher degree AV block. History of Present Illness Reason for Consultation: Abnormal stress test Requesting Physician: van Attending Physician: Cihlango Wang History of Present Illness The patient is an 87-year-old gentleman without a known history of cardiac disease who presents to the emergency room yesterday with symptoms of chest discomfort. According to the patient he awoke during the night with symptoms of a electric shock pains primarily in the lower chest on the left side. This seemed to be close to the margin of the ribcage. This did not appear to be cons tant in nature but intermittent. However, the patient has been having other symptoms of chest pressure. He is reported to be exertional in nature. He states that they occur when he over does it. He tends to be very sedentary and does not walk much. He has mode lawns but uses a riding mower. He does not have stairs at home. The symptoms he describes appear to resolve quickly with rest. These have been occurring now for several weeks. He does not report symptoms of chest pressure at rest. In the emergency room yesterday he did not have evidence of acute ischemia. There is no evidence of an acute coronary syndrome and biomarkers were normal. He was referred for dobutamine echocardiogram from the emergency room. This test was abnormal. The patient did not have reproduction of his index symptoms. However he did have wall motion abnormalities with peak dobutamine infusion. Since admission the patient has felt well. He has not had any recurrent electric shock symptoms. He has not had any sense of chest pressure. He has been ambulatory around his room without symptoms. He denies dizziness or lightheadedness. He has not been aware of any palpitations. He denies any br eathing difficulty. He did not report orthopnea or paroxysmal nocturnal dyspnea. He has not had syncope. He did not report any lower extremity edema. Allergies Allergy/AdvReac Type Severity Reaction Status Date / Time No Known Allergies Allergy Verified 07/02/18 11:18 Home Medications Home Medications Medication Instructions Recorded Confirmed Type aspirin 81 mg tablet,delayed 81 mg PO QAM 03/12/18 07/02/18 History release carvedilol 25 mg tablet 25 mg PO BID 03/12/18 07/02/18 History cholecalciferol (vitamin D3) 2,000 2,000 units PO DAILY 03/12/18 07/02/18 History unit capsule glimepiride 4 mg tablet 4 mg PO QAM 03/12/18 07/02/18 History metformin 1,000 mg tablet 1,000 mg PO BID 03/12/18 07/02/18 History pantoprazole 40 mg tablet,delayed 40 mg PO QAM 03/12/18 07/02/18 History release valsartan 160 mg tablet 160 mg PO QAM 03/12/18 07/02/18 History clonidine HCl 0.1 mg PO UD PRN 04/25/18 07/02/18 History amlodipine 2.5 mg PO DAILY 07/02/18 07/02/18 History glimepiride 4 mg PO QPM 07/02/18 07/02/18 History Patient History Medical History Diabetes mellitus (Chronic) Chest pain (Resolved 10/27/13) Helicobacter pylori ab+ (Resolved 10/27/13) Chest pain (Resolved) H. pylori infection (Resolved) Dizziness (Resolved) Depression (Chronic) GERD (gastroesophageal reflux disease) (Chronic) Abdominal gas pain (Chronic) Arm pain, left (Resolved) Cardiac enzymes elevated (Resolved) Hypertension (Chronic) Hypokalemia (Resolved) Poorly-controlled hypertension (Chronic) Surgical History History of appendectomy (Resolved) Family History Other Family history non-contributory Social History Preferred Language: Micronesian Communication Ability: Effective Dredge Hand Required: No Beliefs That Will Affect Care: None Current Living Situation: Spouse Other Information That Helps Us Care for You: No Feels Safe at Home: Yes Safety Concerns: Feels Safe At This Time Smoking Status: Current every day smoker Tobacco Type: smokeless tobacco Do You Dip or Chew Tobacco: Yes (1 can/day) Hx Alcohol Use: No Hx Substance Use: No Review of Systems Review of Systems: All systems reviewed & are unremarkable except as noted in HPI & below No recent constitutional symptoms such as fevers or chills. Physical Exam Physical Exam: The patient is alert and oriented. Mood and affect appeared normal. He answered all questions appropriately. HEENT: Pupils are equal and reactive to light and accommodation. Extraocular movements are intact. The sclerae are anicteric. Neuro: Cranial nerves intact Neck: Patient's neck is supple. He has palpable carotid pulses bilaterally without bruits on auscultation. There is no evidence of jugular venous distention. The thyroid is not enlarged. Lungs: Clear to auscultation bilaterally. He has good air movement without use of accessory muscles. No rales wheezes or rhonchi. Cardiac: Heart demonstrates a regular rate and rhythm. Normal S1 and S2. No murmurs on examination. Pulses: The patient has palpable radial pulses bilaterally that are equal in intensity Extremities: There was no evidence of hypoperfusion. There is no cyanosis or clubbing. There is no edema. Skin: I did not appreciate any rashes on examination today. He has several excoriations and actinic keratoses. Results & Data Vital Signs (Past 12 Hours) Vital Signs Temp Pulse Resp BP Pulse Ox 07/03/18 11:19 36.7 C 75 19 133/54 L 96 07/03/18 07:54 36.8 C 68 19 131/63 97 07/03/18 03:12 36.9 C 60 16 99/59 L 97 Laboratory Results Abnormal Lab Results 07/02/18 07/02/18 07/02/18 12:58 17:52 18:07 WBC RBC Hgb Hct MCV MCH MCHC RDW Std Deviation RDW Coeff of Allie Plt Count MPV PT INR APTT PTT Ratio Sodium Potassium Chloride Carbon Dioxide Anion Gap BUN Creatinine Est Cr Clr Drug Dosing Est GFR ( Amer) Est GFR (Non-Af Amer) BUN/Creatinine Ratio Glucose POC Glucose 120 H 120 H Calcium Phosphorus Magnesium Total Bilirubin AST ALT Alkaline Phosphatase Troponin I < 0.015 Total Protein Albumin Globulin Albumin/Globulin Ratio 07/02/18 07/02/18 07/03/18 20:09 21:12 05:17 WBC 6.40 RBC 4.13 L Hgb 13.9 L Hct 37.7 L MCV 91.3 MCH 33.7 MCHC 36.9 H RDW Std Deviation 44.8 RDW Coeff of Allie 13.5 Plt Count 133 MPV 9.4 PT INR APTT PTT Ratio Sodium Potassium Chloride Carbon Dioxide Anion Gap BUN Creatinine Est Cr Clr Drug Dosing Est GFR ( Amer) Est GFR (Non-Af Amer) BUN/Creatinine Ratio Glucose POC Glucose 127 H 127 H Calcium Phosphorus Magnesium Total Bilirubin AST ALT Alkaline Phosphatase Troponin I Total Protein Albumin Globulin Albumin/Globulin Ratio 07/03/18 07/03/18 07/03/18 05:17 05:17 07:17 WBC RBC Hgb Hct MCV MCH MCHC RDW Std Deviation RDW Coeff of Allie Plt Count MPV PT 11.9 INR 1.2 H APTT 29.9 PTT Ratio 1.1 Sodium 142 Potassium 3.6 D Chloride 108 H Carbon Dioxide 28 Anion Gap 6.0 BUN 19 H Creatinine 1.43 H Est Cr Clr Drug Dosing 44.4 Est GFR ( Amer) 51.4 Est GFR (Non-Af Amer) 44.3 BUN/Creatinine Ratio 13.4 Glucose 143 H POC Glucose 151 H Calcium 9.1 Phosphorus 2.7 Magnesium 1.5 L Total Bilirubin 0.5 AST 17 ALT 18 Alkaline Phosphatase 62 Troponin I Total Protein 6.3 L Albumin 3.3 L Globulin 3.0 Albumin/Globulin Ratio 1.1 07/03/18 07/03/18 09:16 11:17 WBC RBC Hgb Hct MCV MCH MCHC RDW Std Deviation RDW Coeff of Allie Plt Count MPV PT INR APTT PTT Ratio Sodium Potassium Chloride Carbon Dioxide Anion Gap BUN Creatinine Est Cr Clr Drug Dosing Est GFR ( Amer) Est GFR (Non-Af Amer) BUN/Creatinine Ratio Glucose POC Glucose 217 H 192 H Calcium Phosphorus Magnesium Total Bilirubin AST ALT Alkaline Phosphatase Troponin I Total Protein Albumin Globulin Albumin/Globulin Ratio Diagnostic Findings Stress echocardiogram performed yesterday revealed some mild inferior hypokinesis at rest which did not improve with dobutamine infusion. The remaining landry failed to augment significantly. Overall resting LV function appeared normal. Chest x-ray obtained at the time admission did not reveal any acute cardiopulmonary process. Chronic elevation of left hemidiaphragm ECG Additional Comments: Baseline EKG demonstrates trifascicular block. Sinus rhythm with first-degree AV block, right bundle branch block and left anterior fascicular block.
[2018-07-03] MEDS ORDERED: MIDAZOLAM HCL 1 MG/ML 2ML VIAL ONE (13:48)
[2018-07-03] MEDS ORDERED: fentaNYL citrate 100 MCG/2 ML VIAL ONE (13:49)
[2018-07-03] MEDS ORDERED: NiCARDipine HCL INJ 2.5 MG/ML 10 ML AMP ONE (13:49)
[2018-07-03] MEDS ORDERED: NITROGLYCERIN/D5W 100MCG/ML 20ML SYR ONE (13:49)
[2018-07-03] MEDS ORDERED: HEPARIN (PORCINE) 1000 UNIT/ML 10 ML (CATH LAB USE ONLY) ONE ×2 (13:49→16:00)
--- NOTE | 2018-07-03 15:16 | Cardiac Catheterization ---
Cardiac Cath Procedure: Brief Procedure Date July 03, 2018 Pre-Procedure Diagnosis Pre-Procedure Diagnosis: Positive Stress Test AUC Score AUC Score: 8 Post-Procedure Diagnosis Post-Procedure Diagnosis: Severe CAD Procedure(s) Performed Procedure(s) Performed: Coronary Angiography and Left Heart Cath Personal Care Aid Jose Maldonado MD Daycare Director(s) none Estimated Blood Loss Estimated Blood Loss: 10cc Medication(s) Medication(s): Fentanyl, Heparin, Nicardipine, Nitroglycerin and Versed Preliminary Findings Branch vessel disease involving the distal RCA, Lcx and LAD with long segment of severe disease in the mid LAD. Normal LV filling pressures. Recommendations Recommendations: PCI without planned CABG Specimens Specimens: None Procedural Complication(s) None Disposition PCU
[2018-07-03] MEDS ORDERED: CLOPIDOGREL BISULFATE 300 MG TAB ONE (16:10)
--- NOTE | 2018-07-03 16:51 | Post Anesthesia Assessment ---
Date of Service July 03, 2018 Post Sedation Assessment Vital Signs Temp Pulse Pulse Resp BP BP Pulse Ox 07/03/18 11:19 36.7 C 75 19 133/54 L 96 07/03/18 07:54 36.8 C 68 19 131/63 97 07/03/18 03:12 36.9 C 60 16 99/59 L 97 07/02/18 23:02 36.7 C 64 18 109/65 97 07/02/18 19:00 36.8 C 76 18 130/68 97 07/02/18 18:27 36.6 C 64 64 20 135/80 99 07/02/18 18:00 72 20 112/70 07/02/18 17:00 67 17 111/64 Recovery Score Activity: Moves 4 extremities Respiration: Deep Breath/Cough Circulation: +/-20% PreAnes Value Consciousness: Fully Awake Oxygen Saturation: O2 needed for >90% Discharge Sedation Level of Care: Fast Track Phase II Post Sedation Plan On clinical assessment, the patient appears to have tolerated the sedation without complications. Patient is recovering as anticipated. Patient will continue to be monitored by nursing and may be discharged when sedation discharge criteria are met per below protocol. Upon Completions of procedure and additional 15 minutes continue every 5 minute vital signs and the P.A.R. score; then discharge to a Phase I or Fast Track to Phase II per the following guidelines: * Discharge Patient to appropriate Phase II area if PAR is 8 or greater or return to pre- procedure baseline. The post - procedure orders will be as directed. * If PAR score is less than 8 or not return to pre-procedure baseline then patient will follow Phase I monitoring till PAR is reached for Phase II. The Phase I may be done in procedure room or may call to secure a Phase I area. * If naloxone or flumazenil are used for reversal, hold in Phase I for continued monitoring from when last reversal dose was given for a minimum of 60 minutes or longer pending the nurse and/or physician discretion of patient condition before discharge to Phase II. Please call the Sedation Physician to re-evaluate and complete post-note for discharge to Phase II area. Do NOT discharge from procedure sedation or Phase 1 until post- sedation evaluation note is complete by procedure /sedation MD Sedation Discharge Instructions to be given to the patient at discharge to home.
[2018-07-03] MEDS ORDERED: ONDANSETRON INJ 2 MG/ML 2 ML VIAL IV PRN (16:59)
--- NOTE | 2018-07-03 16:59 | Cardiac Catheterization ---
Cardiac Cath Procedure Full Procedure Date July 03, 2018 Pre-Procedure Diagnosis Pre-Procedure Diagnosis: Positive Stress Test AUC Score AUC Score: 8 Post-Procedure Diagnosis Post-Procedure Diagnosis: Severe CAD and Successful PCI Procedure(s) Performed Procedure(s) Performed: Coronary Angiography and Drug Eluting Stent Cnc Lathe Machinist Jose Pruitt MD Trial Management Associate(s) Clark Estimated Blood Loss Estimated Blood Loss: 10cc Medication(s) Medication(s): Clopidogrel, Fentanyl, Heparin, Nicardipine, Nitroglycerin and Versed Summary of Findings Indication: Abnormal stress test Access: 6 Fr right radial artery Catheters: EBU 3.5 guide Findings: For full details of patient's coronary angiography please cath report dictated by Dr. Maldonado. Patient found to have severe LAD disease decision to proceed with PCI -- PCI -- Antithrombotic therapy: Heparin, clopidogrel Procedure: Left main cannulated with EBU 3.5 guide Geospatial Applications Developer 50 wire passed across lesion into distal vessel Sequential mid LAD lesions predilated with 2.5 compliant balloon Late mid LAD lesion stented with 2.5 x 26 mL Jose LOULOU Earlymid LAD lesion stented with 2.75 x 15 mm Niotaze LOULOU extending across takeoff of moderate caliber first diagonal First diagonal rewired with whisper wire Stents postdilated with 3.0 NC balloon IC vasodilators administered for spasm Post procedure EULOGIO 3 flow, stent well expanded with minimal residual stenosis and no apparent cardiac complications. Arterial Closure: TR band Summary: 1. Successful PCI of mid LAD with 2 nonoverlapping drug-eluting stents (2.75 x 15, 2.5 x 26 Jose; postdilated with 3.0 NC). Recommendations: To PCU for continued monitoring Loaded with clopidogrel 600 mg Continue dual-antiplatelet therapy for at least 6 months Continue statin, and ASCVD risk factor modification Consult cardiac Rehab Hemodynamics Rest Ao:: 125/43/70 Final Ao: 103/50/72 LV: -- Recommendations Recommendations: PCI without planned CABG Specimens Specimens: None Radiation Exposure (mGy) 5554 Contrast (mls) 260 Fluids (cc crystalloids) Fluids (cc crystalloids): none Drains Drains: none Anesthesia moderate Procedural Complication(s) None Disposition PCU ACC Data: Resizer Operator Cardiac Status Clinical evaluation leading to the procedure CAD Presenation: Positive Stress Test Anginal Classification: CCS III Heart Failure: No Cardiogenic Shock within 24 Hours: No Cardiac Arrest within 24 Hours: No Imaging Studies Past 6 Months: Yes Stress Studies Past 6 Months: Yes Stress Echocardiogram: Yes - Positive and Risk/Extent of Ischemia (High) Diagnostic Physicians Name: Jose Pruitt MD Status: Elective Closure Device Closure Device: Radial Band Recommendations: PCI without planned CABG PCI Indication: + Stress Test Lesion Segment Name: mid LAD Culprit Artery: Yes Stenosis Prior to Rx (%): 95 Chronic Total Occlusion: No IVUS: No FFR: No Pre-Procedure EULOGIO Flow: 3 Previously Treated Lesion: No Lesion Length (mm): 26 Thrombus Present: No Bifurcation Lesion: Yes Guidewire Across Lesion: Stenosis Post-Procedure (%): 0 Post-Procedure EULOGIO Flow: 3 Devices(s) Deployed: Yes Yes Intraprocedure Events Significant Disection: No Perforation: No
[2018-07-03] MEDS ORDERED: SODIUM CHLORIDE 0.9% 1000ML 1,000 ML IV SCH (17:00)
[2018-07-03] MEDS: GLIMEPIRIDE 2 MG TAB PO SCH (20:46)
--- NOTE | 2018-07-03 23:11 | Hospitalist Progress Note ---
Date of Service July 03, 2018 Assessment & Plan (1) Atypical chest pain: Admitted patient. Cardiac markers negative but stress test was positive. Cardio consult was not ordered by admiting provider. This was ordered this AM. Patient had breakfast but will be NPO after. Patient will likely be getting cath today. Inform patient that he is high risk due to his history and postive stress test and that he should get cathed. (2) Hypertension: - Continue antihypertensives: amlodipine 2.5 mg daily, aspirin 81 mg daily, carvedilol 25 mg BID, valsartan 160 mg daily, clonidine 0.1 mg daily - BP is well controlled (3) GERD (gastroesophageal reflux disease): - Continue pantoprazole 40 mg daily (4) Diabetes mellitus: - Last a1C =8.6 on 03/10/18 - ISS with accuchecks, achs - glucose elevated over 250 at time of admission, pt did take his morning medications today, hold glimepiride and metformin for now. (5) Neurogenic claudication: (6) Lumbago: (7) Bulging of cervical intervertebral disc: - Follows with pain management as an outpatient, stable. 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 Will continue to monitor. (9) DVT prophylaxis: - jennifer ramirez Spent 35 minutes in management of patient. This included discussion with family. Subjective Patient reports he is feeling well. He states that he would like to go home. Family is at bedside and are aware patient will be going for a cardiac cath today. Patient currently denies any nausea, vomting, diarrhea. Review of Systems Review of Systems: All systems reviewed & are unremarkable except as noted in HPI & below Physical Exam Physical Exam: General: awake, alert, no apparent distress Head: Normocephalic, atraumatic ENT: PERRL, EOMI, no pharyngeal exudate, mucous membranes moist Chest: No chest pain on palpation, clear to auscultation, on room air, no adventitious breath sounds Cardiac: Regular rate and rhythm, no murmur, no JVD, normal peripheral pulses, good capillary refill Abdominal: NABS x 4 quadrants, soft, nontender to palpation, no rebound, guarding or tenderness Extremities: Normal inspection, no peripheral edema or erythema, calfs nontender to palpation Psych: Normal mood and affect Neuro: AAO x 3, strength intact bilaterally and related 5/5, no motor deficits, speech is clear, no peripheral sensory deficits Results & Data Vital Signs (Past 12 Hours) Vital Signs Temp Pulse Resp BP BP Pulse Ox 07/03/18 19:12 36.8 C 66 18 122/61 98 07/03/18 18:30 137/69 07/03/18 17:45 63 16 125/71 97 07/03/18 17:15 84 16 123/72 98 07/03/18 17:00 81 16 124/66 97 07/03/18 16:40 36.8 C 57 L 16 128/71 98 07/03/18 11:19 36.7 C 75 19 133/54 L 96 (1) Hypertension Hypertension type: unspecified Qualified Code(s): I10 - Essential (primary) hypertension
[2018-07-04 07:03] LABS: Hematocrit (blood only) 40.9 % (42-52); Hemoglobin 14.8 g/dL (14.0-18.0); Mean Corpuscular Hgb Conc 36.2 g/dL (32-36); Mean Corpuscular Volume 92.5 fL (80-100); Mean Platelet Volume 9.5 fL (7.4-10.4); Platelet Count 138 K/uL (130-400); RDW Coefficient of Variation 13.5 % (11.5-14.5); RDW Standard Deviation 45.9 fL (36.4-46.3); Red Blood Count 4.42 M/uL (4.7-6.1); White Blood Count 6.73 K/uL (4.8-10.8)
[2018-07-04 07:28] LABS: Albumin Level 3.8 gm/dl (3.4-5.0); BUN Creatinine Ratio 12.5 (10-20); Calcium 9.4 mg/dl (8.5-10.1); Creatinine Clr Calc Pharmacy 45.4 ml/min; Est GFR (African American) 53.6; Est GFR (Non-African American) 46.3; Potassium 4.1 mmol/L (3.5-5.1)
[2018-07-04 07:31] LABS: Albumin Globulin Ratio 1.1 (0.9-2); Bilirubin,Total 0.7 mg/dl (0.2-1); Globulin 3.3 gm/dl (2.5-4.0); Total Protein 7.1 gm/dl (6.4-8.2)
[2018-07-04] MEDS: INSULIN ASPART 100 UNITS/ML 3 ML PEN SC SCH (07:51)
[2018-07-04] MEDS: PANTOprazole 40 MG TAB PO SCH (08:01)
[2018-07-04] MEDS: VALSARTAN 80 MG TAB PO SCH (08:01)
[2018-07-04] MEDS: CHOLECALCIFEROL 1,000 UNITS TAB PO SCH (08:01)
[2018-07-04] MEDS: CARVEDILOL 25 MG TAB PO SCH (08:01)
[2018-07-04] MEDS: ASPIRIN 81 MG ECTAB PO SCH (08:01)
[2018-07-04] MEDS: AMLODIPINE BESYLATE 5 MG TAB PO SCH (08:02)
[2018-07-04] MEDS: ENOXAPARIN INJ 40 MG/0.4 ML SYR SQ SCH (08:02)
[2018-07-04] MEDS ORDERED: CLOPIDOGREL BISULFATE 75 MG TAB PO SCH (09:00)
--- NOTE | 2018-07-07 10:02 | Discharge Summary ---
Date of Service July 04, 2018 Admission HPI Per Admitting Provider This is an 87 yo M with PMHx of HTN, CKD stage III, DM II, Vitamin D deficiency, lumbargo, neurogenic claudication, cervical spine disc disease, chewing tobacco use x 60 yrs, peripheral neuropathy who presents with the acute onset of chest pain. Pt notes a "electrical like shocking sensation across his chest and upper stomach" has been going on for the past 2 weeks, and that it occurs when doing physical activity. He has been able to get the pain to go away by resting. Last evening he states "just didn't feel right" and went to bed. Upon waking up this morning, pt notes that he continued to have the same chest pain and then developed left sided jaw pain. He denies any arm pain, sob, palpitations, lightheadedness, or dizziness. He reports not wanting to stay in the hospital as he has a friend from out of town visiting, and they are supposed to watch a softball game at 4pm. It's currently pouring down rain outside, however he still does not wish to stay. Pt has been eating and drinking well. No other acute complaints. Pts is at bedside. Pt was administered 1 dose of nitroglycerin in the ER, his cp has since resolved. No other complaints. Troponins x 2 were obtained and negative, then a dobutamine stress test was conducted and showed positive results. Principal Diagnosis severe coronary artery disease Discharge Data Allergies Allergy/AdvReac Type Severity Reaction Status Date / Time No Known Allergies Allergy Verified 07/02/18 11:18 Consultations 07/02/18 12:05 ED Decision to Admit Stat 07/02/18 18:27 Consult Case Management - Discharge Planning Routine 07/03/18 08:24 Consult Cardiology Routine Procedures Performed Operation Date: 07/03/18 14:00 Actual Procedures p Cath, Left with Cors and Vent - Rl Maldonado MD s Cineradiography w/Routine Exam(Not Applicable) - Rl Pruitt MD s Drug Eluting Stent SGl Vessel - Rl Pruitt MD Ordered Studies 07/03/18 12:38 CL Cath Imgs for PACS use only Stat Hospital Course (1) Atypical chest pain: Admitted patient. Cardiac markers negative but stress test was positive. Cardio consult was not ordered by admiting provider. This was ordered this AM. Patient had breakfast but will be NPO after. Patient will likely be getting cath today. Inform patient that he is high risk due to his history and postive stress test and that he should get cathed. On 07/03 1. Successful PCI of mid LAD with 2 nonoverlapping drug-eluting stents (2.75 x 15, 2.5 x 26 [place]; postdilated with 3.0 NC). Recommendations: To PCU for continued monitoring Loaded with clopidogrel 600 mg Continue dual-antiplatelet therapy for at least 6 months Continue statin, and ASCVD risk factor modification Consult cardiac Rehab On day of discharge Patient was pain free. Will discharge on ASA, Plavix, and statin. (2) Hypertension: - Continue antihypertensives: amlodipine 2.5 mg daily, aspirin 81 mg daily, carvedilol 25 mg BID, valsartan 160 mg daily, clonidine 0.1 mg daily - BP is well controlled (3) GERD (gastroesophageal reflux disease): - Continue pantoprazole 40 mg daily (4) Diabetes mellitus: - Last a1C =8.6 on 03/10/18 - ISS with accclaudette achs - glucose elevated over 250 at time of admission, pt did take his morning medications today, hold glimepiride and metformin for now. (5) Neurogenic claudication: (6) Lumbago: (7) Bulging of cervical intervertebral disc: - Follows with pain management as an outpatient, stable. 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 Will continue to monitor. (9) DVT prophylaxis: - jennifer ramirez Spent 35 minutes in management of patient. This included discussion with family. Total Time Total Time Spent Total Time Spent (In Minutes): 32 Total Time Includes: Examination of the Patient, Discharge Planning and M edication Reconciliation Discharge Plan Discharge Items Patient Disposition: Home - Self-Care Reason For Visit: CHEST PAIN Discharge Diagnosis: Severe coronary artery disease Condition: Good Discharge Goals: Decrease discomfort Activity: Resume your previous activity Non-emergency contact: Primary Care Provider Call non-emergency contact if: you have any medication questions Follow-up/Referrals: Miguel Olivares MD [Primary Care Provider] - Diet: Heart Healthy Addtl Provider Instructions: Please return to the emergency department if you have worsening or recurrent symptoms not amenable to at-home treatment. Please call for a follow-up appointment with her primary care physician. Please take your medications as prescribed. If you have other concerns and/or complaints please feel free to also call your primary care physician's office or return the ED for further evaluation, management, and treatment. Take your medications as prescribed. Please utilize the resources as discussed with the hospitalist follow-up with your primary care for any additional testing or medical management. Please consider tobacco cessation. You have been examined and treated today on an emergency basis only. This is not a substitute for, or an effort to provide, complete comprehensive medical care. It is impossible to recognize and treat all injuries or illnesses in a single emergency department visit. It is therefore important that you follow up closely with [facility], your PCP, and/or your specialist(s). Call as soon as possible for an appointment. Thank you for your time and consideration. I look forward to speaking with you again soon. Please don't hesitate to call us if you have any questions. Prescriptions: New clopidogrel 75 mg Tablet 75 mg PO QAM Qty: 30 RF: 0 amlodipine [Norvasc] 5 mg Tablet 2.5 mg PO DAILY Qty: 45 RF: 0 atorvastatin 40 mg tablet 40 mg PO HS Qty: 30 RF: 0 Continued carvedilol 25 mg tablet 25 mg PO BID RF: 0 aspirin [Adult Aspirin Regimen] 81 mg tablet,delayed release (DR/EC) 81 mg PO QAM RF: 0 pantoprazole 40 mg tablet,delayed release (DR/EC) 40 mg PO QAM RF: 0 metformin 1,000 mg tablet 1,000 mg PO BID RF: 0 glimepiride 4 mg tablet 4 mg PO QAM RF: 0 valsartan 160 mg tablet 160 mg PO QAM RF: 0 cholecalciferol (vitamin D3) 2,000 unit capsule 2,000 units PO DAILY RF: 0 glimepiride 4 mg tablet 4 mg PO QPM RF: 0 amlodipine 2.5 mg tablet 2.5 mg PO DAILY RF: 0 clonidine HCl 0.1 mg Tablet 0.1 mg PO UD PRN (Reason: Blood Pressure) RF: 0 Stand-Alone Forms: My [employer]/Other Patient Handouts: Angina Heart Attack Recognize, Cath Cardiac Dc Discharge Orders: Discharge Order (Routine); Ordered 07/04/18 Ordered By: Chilango Wang Admission Data Admit Date/Time: 07/02/18 16:34 Attending Provider: Chilango Wang Admit Provider: Alyssa Portillo Primary Care Provider: Miguel Olivares Other Providers: Alyssa Portillo ; Rl Maldonado Service: Telemetry Other Interventions: Discharge Summary Assessment (RN) Last Done: 07/04/18 10:30 DC Date/Time DO NOT enter until pt leaves facility: 07/04/18 11:16
== END 2018-07-04 11:16 | disposition home or self-care (01) | DRG 247 ==
LOC: ED 10:12 → 2E 16:34 → SUATTDRO 16:34 → 2E 18:00
DX: F17.220 Nicotine dependence, chewing tobacco, uncomplicated; I25.10 Atherosclerotic heart disease of native coronary artery without angina pectoris; Z79.82 Long term (current) use of aspirin; K21.9 Gastro-esophageal reflux disease without esophagitis; E11.42 Type 2 diabetes mellitus with diabetic polyneuropathy; E83.39 Other disorders of phosphorus metabolism; N18.3 Chronic kidney disease, stage 3 (moderate); E83.42 Hypomagnesemia; E55.9 Vitamin D deficiency, unspecified; M54.5 Low back pain; E11.22 Type 2 diabetes mellitus with diabetic chronic kidney disease; E11.65 Type 2 diabetes mellitus with hyperglycemia; I12.9 Hypertensive chronic kidney disease with stage 1 through stage 4 chronic kidney disease, or unspecified chronic kidney disease; Z79.84 Long term (current) use of oral hypoglycemic drugs; M50.20 Other cervical disc displacement, unspecified cervical region; Z79.899 Other long term (current) drug therapy

== ENCOUNTER 2018-08-02 20:32 | Inpatient (IN) ==
[2018-08-02] MEDS ORDERED: SODIUM CHLORIDE 0.9% 1000ML 1,000 ML IV ONE (20:53)
[2018-08-02] MEDS ORDERED: ACETAMINOPHEN 500 MG TAB PO STA (20:53)
--- NOTE | 2018-08-02 20:57 | XRay Report ---
XR chest 1V portable CLINICAL HISTORY: Sepsis COMPARISON STUDY: 07/02/2018 FINDINGS: The heart is mildly enlarged. There is persistent interstitial thickening left greater than right, a finding which is accentuated by low lung volumes. There is no focal pulmonary consolidation .[ There are no significant pleural effusions. IMPRESSION: Stable asymmetric interstitial thickening. No evidence of acute parenchymal consolidation Electronically signed by: Dmitry Carranza M.D. 08/02/2018 8:55 PM
[2018-08-02 21:04] LABS: Hematocrit (blood only) 39.8 % (42-52); Hemoglobin 14.4 g/dL (14.0-18.0); Mean Corpuscular Hgb Conc 36.2 g/dL (32-36); Mean Corpuscular Volume 93.2 fL (80-100); RDW Coefficient of Variation 12.8 % (11.5-14.5); RDW Standard Deviation 43.5 fL (36.4-46.3); Red Blood Count 4.27 M/uL (4.7-6.1); White Blood Count 4.23 K/uL (4.8-10.8)
[2018-08-02] MEDS ORDERED: cefTRIAXone SODIUM 2,000 MG in DEXTROSE 5% 50 ML IV STA (21:06)
[2018-08-02] MEDS ORDERED: DOXYCYCLINE HYCLATE 100 MG CAP PO STA (21:06)
[2018-08-02] MEDS ORDERED: NYSTATIN POWDER 15GM BTL EXT STA (21:21)
[2018-08-02 21:23] LABS: Appearance Urine Cloudy (Clear); Bacteria Urine Automated Negative (Negative); Bilirubin Urine Negative (Negative); Blood Urine 3+ (Negative); Color Urine Yellow; Epithelial Cell Urine Auto >30 /lpf (0-5); Glucose Urine UA 3+ (Negative); Ketones Urine Trace (Negative); Leukocyte Esterase Urine Negative (Negative); Nitrite Urine Negative (Negative); Protein Urine 2+ (Negative); RBC Urine Automated 0-4 /hpf (0-4); Specific Gravity Urine 1.026 (1.000-1.030); Urobilinogen Urine Negative (Negative)
[2018-08-02 21:26] LABS: INR 1.2 (0.9-1.1); Partial Thromboplastin Ratio 1.2; Partial Thromboplastin Time 32.2 Seconds (21.0-31.0); Platelet Count 62 K/uL (130-400); Prothrombin Time 12.4 Seconds (9.0-12.0)
[2018-08-02 21:32] LABS: Alanine Aminotransferase 35 U/L (12-78); Albumin Level 3.4 gm/dl (3.4-5.0); Aspartate Aminotransferase 72 U/L (15-37); BUN Creatinine Ratio 17.7 (10-20); Blood Urea Nitrogen 31 mg/dl (7-18); Calcium 8.6 mg/dl (8.5-10.1); Carbon Dioxide 21 mmol/L (21-32); Chloride 104 mmol/L (98-107); Creatinine Clr Calc Pharmacy 36.6 ml/min; Est GFR (African American) 40.8; Est GFR (Non-African American) 35.2; Glucose 259 mg/dl (70-99); Potassium 4.2 mmol/L (3.5-5.1); Sodium 135 mmol/L (136-145)
[2018-08-02 21:40] LABS: Amorphous Sediment Urine Present (None Prsent)
[2018-08-02 21:48] LABS: Alkaline Phosphatase 69 U/L (45-117); Bilirubin,Total 0.7 mg/dl (0.2-1); Creatine Kinase 1398 U/L (39-308); Creatine Kinase MB 4.3 ng/ml (0.5-3.6); Globulin 3.5 gm/dl (2.5-4.0); Total Protein 6.9 gm/dl (6.4-8.2); Troponin I < 0.015 ng/ml (0-0.045)
[2018-08-02 21:54] LABS: Influenza A virus by PCR Neg for Influ A (Neg); Influenza B virus by PCR Neg for Influ B (Neg)
[2018-08-02 22:23] LABS: Basophils # (auto) 0.01 K/uL (0-0.2); Basophils % (auto) 0.2 %; Immature Granulocytes # (auto) 0.01 K/uL (0.00-0.02); Immature Granulocytes % (auto) 0.2 %; Lymphocytes # (auto) 0.55 K/uL (1.2-3.4); Monocytes # (auto) 0.52 K/uL (0.11-0.59); Monocytes % (auto) 12.3 %; Neutrophils # (auto) 3.14 K/uL (1.4-6.5); Neutrophils % (auto) 74.3 %; Platelet Estimate Decreased (Normal); RBC Morphology Unremarkable
[2018-08-02 22:30] LABS: Lyme Ab IgG w/WB Rflx Negative (Negative); Lyme Ab IgM w/WB Rflx Negative (Negative)
--- NOTE | 2018-08-02 23:16 | History & Physical Report ---
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 Presenting with fever and confusion. The pt suffered a tick bite a few weeks ago and was placed on a short course of Doxy empirically by his GP. He was febr ile on arrival to the ER. He may not currently be a reliable historian as he complains of coughing only. Weakness and confusion were reported by family. He had not had a cough in the ER and a CXR was clear. 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 1) Anaplasmosis/AMS due ti infection - The pt received 2G Rocephin empirically on arrival to the ER. As anaplasmosis is confirmed, we will place him on a 10 day course of Doxycycline. Lyme is pending. Thrombocytopenia is expected and will be trended. 2) Rhabdomyolysis - mild - IVF provided - trend labs 3) KRISTINE - acute on chronic renal impairment - IVF - trend BMP. Will avoid holding his ARB as his BP has been difficult to manage. Can be held if renal function worsens AM. 4) CAD - no evidence of ACS - cont carvedilol, AA, statin 5) DM - placed on a sliding scale 6) HTN - cont scheduled meds and PRN clonidine Full code - prophylaxis aside from SCDs held due to low platelets Total time for this admit including review of labs, meds, imaging, records, discussion with pt and ER attending - 40 min. Present on Admission?: Yes History of Present Illness Chief Complaint: AMS, fever Primary Care Provider: Miguel Olivares MD 87 y/o M Hx CAD, HTN, HLD, DMII, CKD III, chronic back pain, GERD. Presenting with fever and confusion. The pt suffered a tick bite a few weeks ago and was placed on a short course of Doxy empirically by his GP. He was febrile on arrival to the ER. He may not currently be a reliable historian as he complains of coughing only. Weakness and confusion were reported by family. He had not had a cough in the ER and a CXR was clear. 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 PMH: 1) CAD - the pt was admitted to the hospital with CP 06/2018. He had a + stress and then proceeded to the cardiac cath lab radiology technologist where 2 stents were placed in his LAD. The report indicated severe CAD. 2) HTN - difficult to manage 3) HLD 4) CKD III 5) GERD 6) Bifascicular block 7) DM II 8) Cervical disc disease with chronic pain Surgical: 1) Cath - 2 LAD stents 07/03/18 2) Appendectomy Social: Does not smoke Chews tobacco Denies alcohol Family: Noncontributory Allergies Allergy/AdvReac Type Severity Reaction Status Date / Time No Known Allergies Allergy Verified 08/02/18 21:06 Home Medications Home Medications Medication Instructions Recorded Confirmed Type aspirin 81 mg tablet,delayed 81 mg PO QAM 03/12/18 08/02/18 History release carvedilol 25 mg tablet 25 mg PO BID 03/12/18 08/02/18 History metformin 1,000 mg tablet 1,000 mg PO BID 03/12/18 08/02/18 History pantoprazole 40 mg tablet,delayed 40 mg PO QAM 03/12/18 08/02/18 History release clonidine HCl 0.1 mg PO UD PRN 04/25/18 08/02/18 History amlodipine 2.5 mg PO DAILY 07/02/18 08/02/18 History glimepiride 4 mg PO BID 07/02/18 08/02/18 History clopidogrel 75 mg PO QAM #30 tab 07/04/18 08/02/18 Rx benzonatate 200 mg capsule 200 mg PO Q8 PRN #21 cap 07/27/18 08/02/18 History valsartan 160 mg tablet 160 mg PO BID tab 07/27/18 08/02/18 History atorvastatin 80 mg PO HS 08/02/18 08/02/18 History cholecalciferol (vitamin D3) 1,000 unit PO DAILY 08/02/18 08/02/18 History [Vitamin D3] Past Med/Surg History Medical History Diabetes mellitus (Chronic) Chest pain (Resolved 10/27/13) Helicobacter pylori ab+ (Resolved 10/27/13) Chest pain (Resolved) H. pylori infection (Resolved) Dizziness (Resolved) Depression (Chronic) GERD (gastroesophageal reflux disease) (Chronic) Abdominal gas pain (Chronic) Arm pain, left (Resolved) Cardiac enzymes elevated (Resolved) Hypertension (Chronic) Hypokalemia (Resolved) Poorly-controlled hypertension (Chronic) Surgical History History of appendectomy (Resolved) Family History Other Family history non-contributory Social History Preferred Language: [place] Communication Ability: Effective [employer] Job Titles Required: No Beliefs That Will Affect Care: None Current Living Situation: Spouse Feels Safe at Home: Yes Safety Concerns: Feels Safe At This Time Smoking Status: Never smoker Tobacco Type: smokeless tobacco Do You Dip or Chew Tobacco: Yes Hx Alcohol Use: No Hx Substance Use: No Review of Systems Review of Systems: Cannot provide Physical Exam 2 Physical Exam: General: Irritable, lethargic, elderly male, AAO x 1, no distress ENT: No erythema or exudates, no thrush - dentition is poor Eyes: ANDREW, EOMI Head and neck: Normocephalic, atraumatic, No JVD, neck is supple. Chest/heart: Nontender, S1,2, RRR, no murmurs, no gallops Lungs: CTAB, no wheezing or crackles Abdomen: Nontender, nondistended, BS+ Neuro: Speech is clear, no unilateral weakness or loss of sensation, coordination intact Musculoskeletal: No joint inflammation, muscle tenderness, FROM Skin: No acute rashes or ulcers Extremities: No clubbing, cyanosis, edema Results & Data Vital Signs (Past 12 Hours) Vital Signs Temp Pulse Pulse Resp BP BP Pulse Ox 08/02/18 22:29 99.7 F H 89 35 H 118/56 L 94 08/02/18 21:22 88 18 131/64 94 08/02/18 20:51 92 08/02/18 20:41 102.9 F H 90 18 129/63 95 PG Care Time/CCT Total # of Minutes Spent Total Time Spent with Patient: Total time spent is greater than 50% in coordination of care (as documented) at patient's floor/unit and/or counseling patient:
--- NOTE | 2018-08-02 23:49 | Emergency Department Note ---
Entered by Raina Lubin acting as a scribe for Vinnie Daniels MD History of Present Illness General Chief complaint: Illness Time Seen by Provider: 08/02/18 20:39 Source: patient and other (nursing staff) History of Present Illness Provider complaint: fever Onset (ago): day(s) (past several days) Location: head Radiation: non-radiation Relieved By: + none Exacerbated By: + none Associated symptoms: + confusion and + cough The patient is a 87 year old male who presents to the Emergency Room with com plaints of persistent fever for the past several days. Per the nursing staff, the patient has not been feeling well and has been experiencing cough, confusion, and incontinence for urine. Home Medications Home Medications Medication Instructions Recorded Confirmed Type aspirin 81 mg tablet,delayed 81 mg PO QAM 03/12/18 08/05/18 History release carvedilol 25 mg tablet 25 mg PO BID 03/12/18 08/05/18 History metformin 1,000 mg tablet 1,000 mg PO BID 03/12/18 08/05/18 History pantoprazole 40 mg tablet,delayed 40 mg PO QAM 03/12/18 08/05/18 History release clonidine HCl 0.1 mg PO UD PRN 04/25/18 08/05/18 History amlodipine 2.5 mg PO DAILY 07/02/18 08/05/18 History glimepiride 4 mg PO BID 07/02/18 08/05/18 History clopidogrel 75 mg PO QAM #30 tab 07/04/18 08/05/18 Rx benzonatate 200 mg capsule 200 mg PO Q8 PRN #21 cap 07/27/18 08/05/18 History valsartan 160 mg tablet 160 mg PO BID tab 07/27/18 08/05/18 History atorvastatin 80 mg PO HS 08/02/18 08/05/18 History cholecalciferol (vitamin D3) 1,000 unit PO DAILY 08/02/18 08/05/18 History [Vitamin D3] doxycycline hyclate 100 mg PO BID 13 Days #26 tab 08/04/18 08/05/18 Rx Allergies Allergy/AdvReac Type Severity Reaction Status Date / Time No Known Allergies Allergy Verified 08/02/18 21:06 Past Med/Surg History Medical History Diabetes mellitus (Chronic) Chest pain (Resolved 10/27/13) Helicobacter pylori ab+ (Resolved 10/27/13) Chest pain (Resolved) H. pylori infection (Resolved) Dizziness (Resolved) Depression (Chronic) GERD (gastroesophageal reflux disease) (Chronic) Abdominal gas pain (Chronic) Arm pain, left (Resolved) Cardiac enzymes elevated (Resolved) Hypertension (Chronic) Hypokalemia (Resolved) Poorly-controlled hypertension (Chronic) Anaplasmosis Surgical History History of appendectomy (Resolved) Family History Other Family history non-contributory Social History Preferred Language: Nepali Communication Ability: Effective Beliefs That Will Affect Care: None Current Living Situation: Spouse Feels Safe at Home: Yes Smoking Status: Never smoker Tobacco Type: smokeless tobacco Hx Alcohol Use: No Hx Substance Use: No Review of Systems See HPI for pertinent positives & negatives. and A total of 10 systems reviewed and were otherwise negative Physical Exam Vital Signs Vital Signs - 24 hr 08/02/18 20:41 08/02/18 20:51 08/02/18 21:22 Temperature 39.4 C H Temperature Source Oral Sepsis Recent Fever Within 48 Hours No Sepsis New/Unexplained Change in Mental Status No Sepsis Action Taken by Nursing No Action Required Pulse Rate 90 Pulse Rate [Right Finger] 88 Respiratory Rate 18 18 Respiratory Effort / Characteristics Non-Labored Spontaneous Respiratory Depth Normal Respiratory Pattern Regular Blood Pressure 129/63 Blood Pressure [Right Arm] 131/64 Blood Pressure Mean 85 Blood Pressure Mean [Right Arm] 86 Blood Pressure Position [Right Arm] Lying Pulse Oximetry 95 92 94 Oxygen Delivery Method Room Air Room Air Room Air 08/02/18 22:29 Temperature 37.6 C H Temperature Source Oral Sepsis Recent Fever Within 48 Hours Sepsis New/Unexplained Change in Mental Status Sepsis Action Taken by Nursing Pulse Rate Pulse Rate [Right Finger] 89 Respiratory Rate 35 H Respiratory Effort / Characteristics Respiratory Depth Respiratory Pattern Blood Pressure Blood Pressure [Right Arm] 118/56 L Blood Pressure Mean Blood Pressure Mean [Right Arm] 76 Blood Pressure Position [Right Arm] Pulse Oximetry 94 Oxygen Delivery Method GENERAL: Awake, alert, well-appearing, in no acute distress HENT: Normocephalic, atraumatic. Oropharynx unremarkable. EYES: Normal conjunctiva. Sclera non-icteric. NECK: Supple. No nuchal rigidity. FROM. No JVD. RESPIRATORY: Clear to auscultation. CARDIAC: Regular rate, normal rhythm. Extremities warm and well perfused. Pulses equal. ABDOMEN: Soft, non-distended. No tenderness to palpation. No rebound or guarding. No masses. RECTAL: Deferred. MUSCULOSKELETAL: Chest examination reveals no tenderness. The back is symmetrical on inspection without obvious abnormality. There is no CVA tenderne ss to palpation. No joint edema. LOWER EXTREMITIES: Calves are equal size bilaterally and non-tender. No edema. No discoloration. NEURO: Normal sensorium. No sensory or motor deficits noted. SKIN: No rash or jaundice noted. Course 2041: The patient was evaluated in room B10, and a complete history and physical examination were performed. 2136: I reevaluated and updated the patient and his family on his results. 2229: I reviewed the patient's case with Dr. Martinez [facility] Hospitalist. He will evaluate the patient for further management. Consultations Consultation #1: Dr. Martinez [facility] Hospitalist Time: 22:30 Administered Medications Discontinued Medications Acetaminophen (Tylenol) 1,000 mg PO NOW [facility] Stop: 08/02/18 20:54 Last Admin: 08/02/18 21:18 Dose: 1,000 mg Documented by: [id number] Amlodipine Besylate (Norvasc) 2.5 mg PO DAILY [facility] Stop: 09/02/18 08:59 Last Admin: 08/04/18 08:49 Dose: 2.5 mg Documented by: [id number] Admin: 08/03/18 10:09 Dose: 2.5 mg Documented by: [id number] Aspirin (Ecotrin Ectab) 81 mg PO QAM [facility] Stop: 09/02/18 08:59 Last Admin: 08/04/18 08:49 Dose: 81 mg Documented by: [id number] Admin: 08/03/18 10:08 Dose: 81 mg Documented by: [id number] Atorvastatin Calcium (Lipitor) 80 mg PO HS [facility] Stop: 09/02/18 20:59 Last Admin: 08/03/18 20:52 Dose: 80 mg Documented by: [id number] Carvedilol (Coreg) 25 mg PO BID [facility] Stop: 09/02/18 08:59 Last Admin: 08/04/18 08:49 Dose: 25 mg Documented by: [id number] Admin: 08/03/18 20:53 Dose: 25 mg Documented by: [id number] Admin: 08/03/18 10:07 Dose: 25 mg Documented by: [id number] Clopidogrel Bisulfate (Plavix) 75 mg PO QAM [facility] Stop: 09/02/18 08:59 Last Admin: 08/04/18 08:49 Dose: 75 mg Documented by: [id number] Admin: 08/03/18 10:10 Dose: 75 mg Documented by: [id number] Diclofenac Sodium (Voltaren 1% Top) 1 appln EXT QID [facility] Stop: 09/02/18 16:59 Last Admin: 08/04/18 09:06 Dose: Not Given Documented by: [id number] Admin: 08/03/18 20:56 Dose: Not Given Documented by: [id number] Admin: 08/03/18 17:40 Dose: Not Given Documented by: [id number] Doxycycline Hyclate (Vibramycin) 100 mg PO NOW [facility] Stop: 08/02/18 21:07 Last Admin: 08/02/18 21:18 Dose: 100 mg Documented by: [id number] Heparin Sodium (Porcine) (Heparin Sodium (Porcine)) 5,000 units SQ Q12 [facility] Stop: 09/02/18 20:59 Last Admin: 08/04/18 08:52 Dose: Not Given Documented by: [id number] Admin: 08/03/18 20:52 Dose: Not Given Documented by: [id number] Sodium Chloride (Nss 1000ml) 1,000 mls @ 999 mls/hr IV .Q1H1M ONE Stop: 08/02/18 21:53 Last Infusion: 08/02/18 22:51 Dose: 0 mls/hr Documented by: [id number] Admin: 08/02/18 21:18 Dose: 999 mls/hr Documented by: [id number] Ceftriaxone Sodium 2,000 mg/ (Dextrose) 70 mls @ 100 mls/hr IV NOW STA Stop: 08/02/18 21:47 Last Infusion: 08/02/18 22:51 Dose: 0 mls/hr Documented by: [id number] Admin: 08/02/18 21:31 Dose: 100 mls/hr Documented by: [id number] Sodium Chloride (Nss 1000ml) 1,000 mls @ 150 mls/hr IV .Q6H40M [facility] Stop: 08/03/18 13:32 Last Infusion: 08/03/18 17:05 Dose: 0 mls/hr Documented by: [id number] Admin: 08/03/18 10:07 Dose: 150 mls/hr Documented by: [id number] Infusion: 08/03/18 09:37 Dose: 0 mls/hr Documented by: [id number] Admin: 08/03/18 00:50 Dose: 150 mls/hr Documented by: [id number] Doxycycline Hyclate 100 mg/ (Dextrose) 110 mls @ 50 mls/hr IV Q12H [facility]; Protocol Stop: 08/17/18 08:59 Last Infusion: 08/04/18 11:19 Dose: 0 mls/hr Documented by: [id number] Admin: 08/04/18 08:52 Dose: 50 mls/hr Documented by: [id number] Infusion: 08/03/18 23:11 Dose: 0 mls/hr Documented by: [id number] Admin: 08/03/18 20:50 Dose: 50 mls/hr Documented by: [id number] Infusion: 08/03/18 13:05 Dose: 0 mls/hr Documented by: [id number] Admin: 08/03/18 10:10 Dose: 50 mls/hr Documented by: [id number] Insulin Aspart (Novolog Flexpen) 0 units SC ACHS [facility] Stop: 09/02/18 20:59 Last Admin: 08/04/18 12:03 Dose: Not Given Documented by: [id number] Cosigned by: [id number] Admin: 08/04/18 08:55 Dose: 7 units Documented by: [id number] Cosigned by: [id number] Admin: 08/03/18 20:55 Dose: 2 units Documented by: [id number] Cosigned by: [id number] Magnesium Oxide (Mag-Ox) 400 mg PO BID [facility] Stop: 09/02/18 08:59 Last Admin: 08/04/18 08:49 Dose: 400 mg Documented by: [id number] Admin: 08/03/18 20:53 Dose: 400 mg Documented by: [id number] Admin: 08/03/18 10:08 Dose: 400 mg Documented by: [id number] Nicotine (Nicoderm Cq) 21 mg TD QAM [facility] Stop: 09/03/18 10:14 Last Admin: 08/04/18 10:58 Dose: 21 mg Documented by: [id number] Nystatin (Mycostatin) 1 appln EXT NOW [facility] Stop: 08/02/18 21:22 Last Admin: 08/02/18 21:31 Dose: 1 appln Documented by: [id number] Pantoprazole Sodium (Protonix) 40 mg PO QAM [facility] Stop: 09/02/18 08:59 Last Admin: 08/04/18 08:49 Dose: 40 mg Documented by: [id number] Admin: 08/03/18 10:10 Dose: 40 mg Documented by: [id number] Valsartan (Diovan) 160 mg PO BID [facility] Stop: 09/02/18 08:59 Last Admin: 08/03/18 10:07 Dose: 160 mg Documented by: [id number] Medical Decision Making Differential Diagnosis Differential diagnosis: Etiologies such as viral syndrome, otitis, pharyngitis, pneumonia, influenza, meningitis, urinary tract infection, sepsis, bacteremia, as well as others were entertained. Medical Records Attestation: I reviewed the patient's medical records. Home Medications Current Medication List: was personally reviewed by me Laboratory Data Attestation: I reviewed the patient's lab results. Result diagrams: 08/04/18 05:46 08/04/18 05:46 Lab Results 08/02/18 08/02/18 08/02/18 Range/Units 20:45 20:53 20:53 WBC 4.23 L (4.8-10.8) K/uL RBC 4.27 L (4.7-6.1) M/uL Hgb 14.4 (14.0-18.0) g/dL Hct 39.8 L (42-52) % MCV 93.2 (80-100) fL MCH 33.7 (25-34) pg MCHC 36.2 H (32-36) g/dL RDW Std Deviation 43.5 (36.4-46.3) fL RDW Coeff of Allie 12.8 (11.5-14.5) % Plt Count 62 L (130-400) K/uL MPV 10.0 (7.4-10.4) fL Immature Gran % (Auto) 0.2 % Neut % (Auto) 74.3 % Lymph % (Auto) 13.0 % Owen % (Auto) 12.3 % Eos % (Auto) 0.0 % Baso % (Auto) 0.2 % Immature Gran # (Auto) 0.01 (0.00-0.02) K/uL Neut # (Auto) 3.14 (1.4-6.5) K/uL Lymph # (Auto) 0.55 L (1.2-3.4) K/uL Owen # (Auto) 0.52 (0.11-0.59) K/uL Eos # (Auto) 0.00 (0-0.5) K/uL Baso # (Auto) 0.01 (0-0.2) K/uL Platelet Estimate Decreased L (Normal) RBC Morphology Unremarkable Peripher Smr Path Cons PT 12.4 H (9.0-12.0) Seconds INR 1.2 H (0.9-1.1) APTT 32.2 H (21.0-31.0) Seconds PTT Ratio 1.2 Sodium (136-145) mmol/L Potassium (3.5-5.1) mmol/L Chloride (98-107) mmol/L Carbon Dioxide (21-32) mmol/L Anion Gap (3-11) BUN (7-18) mg/dl Creatinine (0.6-1.4) mg/dl Est Cr Clr Drug Dosing ml/min Est GFR ( Amer) Est GFR (Non-Af Amer) BUN/Creatinine Ratio (10-20) Glucose (70-99) mg/dl POC Lactic Acid Porfirio (0.90-1.70) mmol/L Calcium (8.5-10.1) mg/dl Total Bilirubin (0.2-1) mg/dl AST (15-37) U/L ALT (12-78) U/L Alkaline Phosphatase (45-117) U/L Total Creatine Kinase (39-308) U/L CK-MB (CK-2) (0.5-3.6) ng/ml CK/CKMB % Calc (0-3.0) Troponin I (0-0.045) ng/ml Total Protein (6.4-8.2) gm/dl Albumin (3.4-5.0) gm/dl Globulin (2.5-4.0) gm/dl Albumin/Globulin Ratio (0.9-2) Specimen Hemolysis Urine Color Yellow Urine Appearance Cloudy A (Clear) Urine pH 5.0 (4.5-7.5) Ur Specific [place] 1.026 (1.000-1.030) Urine Protein 2+ H (Negative) Urine Glucose (UA) 3+ H (Negative) Urine Ketones Trace H (Negative) Urine Blood 3+ H (Negative) Urine Nitrite Negative (Negative) Urine Bilirubin Negative (Negative) Urine Urobilinogen Negative (Negative) Ur Leukocyte Esterase Negative (Negative) Urine WBC (Auto) 1-5 (0-5) /hpf Urine RBC (Auto) 0-4 (0-4) /hpf U Hyaline Cast (Auto) 5-10 H (0-5) /lpf U Epithel Cells (Auto) >30 H (0-5) /lpf Urine Bacteria (Auto) Negative (Negative) Amorphous Sediment Present A (None Prsent) Urine Yeast Not Reportable A. phagocytophilum IgG (<1:64) A. phagocytophilum IgM (<1:20) A. phagocytophilum DNA (Not Detected) A.phagocytophilum Intrp A. phagocytophilum Cmmt Lyme Disease IgG Ab (Negative) Lyme Disease IgM Ab (Negative) E. chaffeensis IgG Ab (<1:64) E. chaffeensis IgM Ab (<1:20) E. chaffeensis Interp E. chaffeensis Comment Influenza Type A (PCR) (Neg) Influenza Type B (PCR) (Neg) 08/02/18 08/02/18 08/02/18 Range/Units 20:53 21:00 21:05 WBC (4.8-10.8) K/uL RBC (4.7-6.1) M/uL Hgb (14.0-18.0) g/dL Hct (42-52) % MCV (80-100) fL MCH (25-34) pg MCHC (32-36) g/dL RDW Std Deviation (36.4-46.3) fL RDW Coeff of Allie (11.5-14.5) % Plt Count (130-400) K/uL MPV (7.4-10.4) fL Immature Gran % (Auto) % Neut % (Auto) % Lymph % (Auto) % Owen % (Auto) % Eos % (Auto) % Baso % (Auto) % Immature Gran # (Auto) (0.00-0.02) K/uL Neut # (Auto) (1.4-6.5) K/uL Lymph # (Auto) (1.2-3.4) K/uL Owen # (Auto) (0.11-0.59) K/uL Eos # (Auto) (0-0.5) K/uL Baso # (Auto) (0-0.2) K/uL Platelet Estimate (Normal) RBC Morphology Peripher Smr Path Cons PT (9.0-12.0) Seconds INR (0.9-1.1) APTT (21.0-31.0) Seconds PTT Ratio Sodium 135 L (136-145) mmol/L Potassium 4.2 (3.5-5.1) mmol/L Chloride 104 (98-107) mmol/L Carbon Dioxide 21 (21-32) mmol/L Anion Gap 10.0 (3-11) BUN 31 H (7-18) mg/dl Creatinine 1.73 H (0.6-1.4) mg/dl Est Cr Clr Drug Dosing 36.6 ml/min Est GFR ( Amer) 40.8 Est GFR (Non-Af Amer) 35.2 BUN/Creatinine Ratio 17.7 (10-20) Glucose 259 H (70-99) mg/dl POC Lactic Acid Porfirio 2.52 H (0.90-1.70) mmol/L Calcium 8.6 (8.5-10.1) mg/dl Total Bilirubin 0.7 (0.2-1) mg/dl AST 72 H (15-37) U/L ALT 35 (12-78) U/L Alkaline Phosphatase 69 (45-117) U/L Total Creatine Kinase 1398 H (39-308) U/L CK-MB (CK-2) 4.3 H (0.5-3.6) ng/ml CK/CKMB % Calc 0.3 (0-3.0) Troponin I < 0.015 (0-0.045) ng/ml Total Protein 6.9 (6.4-8.2) gm/dl Albumin 3.4 (3.4-5.0) gm/dl Globulin 3.5 (2.5-4.0) gm/dl Albumin/Globulin Ratio 1.0 (0.9-2) Specimen Hemolysis Urine Color Urine Appearance (Clear) Urine pH (4.5-7.5) Ur Specific [place] (1.000-1.030) Urine Protein (Negative) Urine Glucose (UA) (Negative) Urine Ketones (Negative) Urine Blood (Negative) Urine Nitrite (Negative) Urine Bilirubin (Negative) Urine Urobilinogen (Negative) Ur Leukocyte Esterase (Negative) Urine WBC (Auto) (0-5) /hpf Urine RBC (Auto) (0-4) /hpf U Hyaline Cast (Auto) (0-5) /lpf U Epithel Cells (Auto) (0-5) /lpf Urine Bacteria (Auto) (Negative) Amorphous Sediment (None Prsent) Urine Yeast A. phagocytophilum IgG (<1:64) A. phagocytophilum IgM (<1:20) A. phagocytophilum DNA (Not Detected) A.phagocytophilum Intrp A. phagocytophilum Cmri Lyme Disease IgG Ab (Negative) Lyme Disease IgM Ab (Negative) E. chaffeensis IgG Ab (<1:64) E. chaffeensis IgM Ab (<1:20) E. chaffeensis Interp E. chaffeensis Comment Influenza Type A (PCR) Neg for Influ A (Neg) Influenza Type B (PCR) Neg for Influ B (Neg) 08/02/18 08/02/18 Range/Units 21:19 21:19 WBC (4.8-10.8) K/uL RBC (4.7-6.1) M/uL Hgb (14.0-18.0) g/dL Hct (42-52) % MCV (80-100) fL MCH (25-34) pg MCHC (32-36) g/dL RDW Std Deviation (36.4-46.3) fL RDW Coeff of Allie (11.5-14.5) % Plt Count (130-400) K/uL MPV (7.4-10.4) fL Immature Gran % (Auto) % Neut % (Auto) % Lymph % (Auto) % Owen % (Auto) % Eos % (Auto) % Baso % (Auto) % Immature Gran # (Auto) (0.00-0.02) K/uL Neut # (Auto) (1.4-6.5) K/uL Lymph # (Auto) (1.2-3.4) K/uL Owen # (Auto) (0.11-0.59) K/uL Eos # (Auto) (0-0.5) K/uL Baso # (Auto) (0-0.2) K/uL Platelet Estimate (Normal) RBC Morphology Peripher Smr Path Cons PT (9.0-12.0) Seconds INR (0.9-1.1) APTT (21.0-31.0) Seconds PTT Ratio Sodium (136-145) mmol/L Potassium (3.5-5.1) mmol/L Chloride (98-107) mmol/L Carbon Dioxide (21-32) mmol/L Anion Gap (3-11) BUN (7-18) mg/dl Creatinine (0.6-1.4) mg/dl Est Cr Clr Drug Dosing ml/min Est GFR ( Amer) Est GFR (Non-Af Amer) BUN/Creatinine Ratio (10-20) Glucose (70-99) mg/dl POC Lactic Acid Porfirio (0.90-1.70) mmol/L Calcium (8.5-10.1) mg/dl Total Bilirubin (0.2-1) mg/dl AST (15-37) U/L ALT (12-78) U/L Alkaline Phosphatase (45-117) U/L Total Creatine Kinase (39-308) U/L CK-MB (CK-2) (0.5-3.6) ng/ml CK/CKMB % Calc (0-3.0) Troponin I (0-0.045) ng/ml Total Protein (6.4-8.2) gm/dl Albumin (3.4-5.0) gm/dl Globulin (2.5-4.0) gm/dl Albumin/Globulin Ratio (0.9-2) Specimen Hemolysis Urine Color Urine Appearance (Clear) Urine pH (4.5-7.5) Ur Specific [place] (1.000-1.030) Urine Protein (Negative) Urine Glucose (UA) (Negative) Urine Ketones (Negative) Urine Blood (Negative) Urine Nitrite (Negative) Urine Bilirubin (Negative) Urine Urobilinogen (Negative) Ur Leukocyte Esterase (Negative) Urine WBC (Auto) (0-5) /hpf Urine RBC (Auto) (0-4) /hpf U Hyaline Cast (Auto) (0-5) /lpf U Epithel Cells (Auto) (0-5) /lpf Urine Bacteria (Auto) (Negative) Amorphous Sediment (None Prsent) Urine Yeast A. phagocytophilum IgG <1:64 (<1:64) A. phagocytophilum IgM <1:20 (<1:20) A. phagocytophilum DNA Detected A (Not Detected) A.phagocytophilum Intrp see note A. phagocytophilum Cmmt see note Lyme Disease IgG Ab Negative (Negative) Lyme Disease IgM Ab Negative (Negative) E. chaffeensis IgG Ab <1:64 (<1:64) E. chaffeensis IgM Ab <1:20 (<1:20) E. chaffeensis Interp see note E. chaffeensis Comment see note Influenza Type A (PCR) (Neg) Influenza Type B (PCR) (Neg) Imaging Data Radiologist's Impression: Radiology results as stated below per my review and the radiologist's interpretation: XR chest 1V portable CLINICAL HISTORY: Sepsis COMPARISON STUDY: 07/02/2018 FINDINGS: The heart is mildly enlarged. There is persistent interstitial thickening left greater than right, a finding which is accentuated by low lung volumes. There is no focal pulmonary consolidation.[ There are no significant pleural effusions. IMPRESSION: Stable asymmetric interstitial thickening. No evidence of acute parenchymal consolidation Electronically signed by: Dmitry Carranza M.D. 08/02/2018 8:55 PM ECG Data Attestation: I personally reviewed and interpreted this ECG as follows: Indication: other (fever) Rate (beats per minute): 89 Rhythm: normal sinus Findings: + RBBB; no ST depression and no ST elevation Blood Pressure Blood Pressure Findings: Normal blood pressure Blood Pressure Disposition: did not require urgent referral MDM Narrative This is an 87-year-old male who presents emergency department complaining of fever altered mental status and urinary incontinence. I am concerned that the patient may have anaplasmosis as he has a decrease in his platelets white blood cell count and a slight increase in his liver enzymes. I did discuss this with the patient who was able to show me a place where the tick bit him approximately 3 weeks ago. 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 The p atient was started on IV Rocephin 2 g as well as oral doxycycline. Due to the patient's altered mental status I did discuss the case with the hospitalist service who agreed to admit the patient. Patient family are in agreement with the treatment plan. Impression & Plan Anaplasmosis, Altered mental status, Rhabdomyolysis Discharge Plan Visit Data *Final* Discharge Date/Time: 08/02/18 23:31 Chief Complaint: Illness ED Provider: Vinnie Daniels Discharge Problem: Anaplasmosis, Altered mental status, Rhabdomyolysis Patient Disposition: Admitted As Inpatient Discharge Instructions Interventions: ED Discharge Assessment Last Done: 08/02/18 23:31 Discharge Problem: Altered mental status Qualifiers: Altered mental status type: unspecified Qualified Code(s): R41.82 - Altered mental status, unspecified Rhabdomyolysis Qualifiers: Rhabdomyolysis type: non-traumatic Qualified Code(s): M62.82 - Rhabdomyolysis The scribe's documentation has been prepared under my direction and personally reviewed by me in its entirety. I confirm that the note above accurately reflects all work, treatment, procedures, and medical decision making performed by me.
[2018-08-03] MEDS ORDERED: MAGNESIUM HYDROXIDE SUSP 30 ML UDC PO PRN (00:13)
[2018-08-03] MEDS ORDERED: ACETAMINOPHEN 325 MG TAB PO PRN (00:13)
[2018-08-03] MEDS ORDERED: ONDANSETRON INJ 2 MG/ML 2 ML VIAL IV PRN (00:13)
[2018-08-03] MEDS ORDERED: POLYETHYLENE (MIRALAX) 17 GM PACK PO PRN (00:13)
[2018-08-03] MEDS ORDERED: ALUMINUM/MAGNESIUM SUSP 30 ML UDC PO PRN (00:13)
[2018-08-03] MEDS ORDERED: cloNIDine HCl 0.1 MG TAB PO PRN (00:13)
[2018-08-03] MEDS: SODIUM CHLORIDE 0.9% 1000ML 1,000 ML IV SCH ×2 (00:50→10:07)
[2018-08-03 05:48] LABS: Hematocrit (blood only) 38.9 % (42-52); Hemoglobin 13.6 g/dL (14.0-18.0); Mean Corpuscular Volume 93.1 fL (80-100); RDW Standard Deviation 43.8 fL (36.4-46.3); Red Blood Count 4.18 M/uL (4.7-6.1); White Blood Count 4.08 K/uL (4.8-10.8)
[2018-08-03 06:14] LABS: Mean Platelet Volume 10.2 fL (7.4-10.4); Platelet Count 50 K/uL (130-400)
[2018-08-03 06:16] LABS: Calcium 8.1 mg/dl (8.5-10.1); Creatinine Clr Calc Pharmacy 34.2 ml/min; Est GFR (African American) 38.1; Est GFR (Non-African American) 32.9; Magnesium 1.3 mg/dl (1.8-2.4); Potassium 3.9 mmol/L (3.5-5.1)
[2018-08-03 06:36] LABS: Giant Platelets 1+; Immature Granulocytes # (auto) 0.02 K/uL (0.00-0.02); Immature Granulocytes % (auto) 0.5 %; Lymphocytes # (auto) 0.65 K/uL (1.2-3.4); Lymphocytes % (auto) 15.9 %; Monocytes # (auto) 0.42 K/uL (0.11-0.59); Monocytes % (auto) 10.3 %; Neutrophils # (auto) 2.99 K/uL (1.4-6.5); Neutrophils % (auto) 73.3 %
[2018-08-03] MEDS ORDERED: VALSARTAN 80 MG TAB PO SCH (09:00)
[2018-08-03] MEDS: CARVEDILOL 25 MG TAB PO SCH ×2 (10:07→20:53)
[2018-08-03] MEDS: MAGNESIUM OXIDE 400 MG TAB PO SCH ×2 (10:08→20:53)
[2018-08-03] MEDS: ASPIRIN 81 MG ECTAB PO SCH (10:08)
[2018-08-03] MEDS: AMLODIPINE BESYLATE 5 MG TAB PO SCH (10:09)
[2018-08-03] MEDS: DOXYCYCLINE HYCLATE 100 MG in DEXTROSE 5% 100 ML IV SCH ×2 (10:10→20:50)
[2018-08-03] MEDS: CLOPIDOGREL BISULFATE 75 MG TAB PO SCH (10:10)
[2018-08-03] MEDS: PANTOprazole 40 MG TAB PO SCH (10:10)
--- NOTE | 2018-08-03 11:39 | Family Medicine Progress Note ---
Date of Service August 03, 2018 Assessment & Plan (1) Anaplasmosis: 87 y/o M Hx CAD, HTN, HLD, DMII, CKD III, chronic back pain, GERD who presented with fevers, confusion, and cough. 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 -Lyme pending -continue to monitor symptoms. Rhabdomyolysis -creatinine kinase of ~2000 -pt on fluids -will continue to monitor KRISTINE -Likely due to recent infection/inflammation, dehydration -given continued rise this AM will hold ARB -continue IV fluids, continue PO hydration. -will continue to monitor with AM labs CAD -no evidence of ACS -cont carvedilol, AA, statin DM -ISS HTN -cont scheduled meds and PRN clonidine FEN/GI: Heart healthy, IV fluids CODE STATUS: Full code DVT prophylaxis: SCDs Supervising Physician Co-Signing Physician Notes I personally examined the patient and verified all miguel points of history and exam, discussed case, and agree with decision making with Dr Johnson. Feeling about the same. Left-sided rib pain from coughing the other day. Is eating a little bit better, notes that he ate most of his breakfast tray. Family present, extensive discussions and all questions answered to the best my ability. Approximately 30 minutes in the room time at approximately 11:40 AM, time out approximately 12:10 PM. Vitals noted, in general he is awake and alert fatigued but no distress. HEENT normocephalic atraumatic mucous members moist. Skin looks a little bit flushed. Breathing unlabored he is tender across his left side of his rib cage. Abdomen soft mildly distended nontender no masses organomegaly, no guarding or rebound or rigidity. Extremities show no cyanosis clubbing or edema. No focal neuro deficits. Anaplasmosisother than his cough, his entire history and diagnostic work-up appears quite consistent with anaplasmosis, he is already been started on doxycycline, and I expect improvement over the next 48 hours or so. Continue current care. Cough/rib paintopical diclofenac, consider OMT, suspect cough does not relate to anaplasmosis but rather may have also had a concomitant viral illness or other cause of cough, he notes that it is improving, other than the rib pain. Elevated creatinine/acute renal insufficiency superimposed on stage III CKDelevation likely related to dehydration from anaplasmosis. Continue IV fluids and supportive care. Hold ARB for now DVT proph - heparin SQ Subjective Mr. Rodrigez complains of a nagging cough today that hurts his ribs. Two daughters and at bedside. Site of tick bite is on right inner thigh. Denies chest pain, SOB. Review of Systems Review of Systems: All systems reviewed & are unremarkable except as noted in HPI & below Physical Exam Physical Exam: General: Alert, oriented. HEENT: NC/AT, PERRLA, EOMI, oropharynx moist. Chest: Nontender to palpation except for right rib area. CV: RRR, Normal s1, s2. Resp: Breath sounds clear bilaterally on front Abdomen: Soft, nontender, nondistended. Extremities: No edema. Results & Data Vital Signs (Past 12 Hours) Vital Signs Temp Pulse Resp BP Pulse Ox 08/03/18 11:24 37.3 C 80 20 115/67 93 08/03/18 07:04 36.9 C 84 20 100/54 L 95 Laboratory Results Laboratory Results - last 24 hr 08/02/18 08/02/18 08/02/18 20:45 20:53 20:53 WBC 4.23 L RBC 4.27 L Hgb 14.4 Hct 39.8 L MCV 93.2 MCH 33.7 MCHC 36.2 H RDW Std Deviation 43.5 RDW Coeff of Allie 12.8 Plt Count 62 L MPV 10.0 Immature Gran % (Auto) 0.2 Neut % (Auto) 74.3 Lymph % (Auto) 13.0 [place] % (Auto) 12.3 Eos % (Auto) 0.0 Baso % (Auto) 0.2 Immature Gran # (Auto) 0.01 Neut # (Auto) 3.14 Lymph # (Auto) 0.55 L [place] # (Auto) 0.52 Eos # (Auto) 0.00 Baso # (Auto) 0.01 Platelet Estimate Decreased L Giant Platelets RBC Morphology Unremarkable Peripher Smr Path Cons PT 12.4 H INR 1.2 H APTT 32.2 H PTT Ratio 1.2 Sodium Potassium Chloride Carbon Dioxide Anion Gap BUN Creatinine Est Cr Clr Drug Dosing Est GFR ( Amer) Est GFR (Non-Af Amer) BUN/Creatinine Ratio Glucose POC Lactic Acid Porfirio Calcium Magnesium Total Bilirubin AST ALT Alkaline Phosphatase Total Creatine Kinase CK-MB (CK-2) CK/CKMB % Calc Troponin I Total Protein Albumin Globulin Albumin/Globulin Ratio Specimen Hemolysis Urine Color Yellow Urine Appearance Cloudy A Urine pH 5.0 Ur Specific [place] 1.026 Urine Protein 2+ H Urine Glucose (UA) 3+ H Urine Ketones Trace H Urine Blood 3+ H Urine Nitrite Negative Urine Bilirubin Negative Urine Urobilinogen Negative Ur Leukocyte Esterase Negative Urine WBC (Auto) 1-5 Urine RBC (Auto) 0-4 U Hyaline Cast (Auto) 5-10 H U Epithel Cells (Auto) >30 H Urine Bacteria (Auto) Negative Amorphous Sediment Present A Urine Yeast Not Reportable A. phagocytophilum IgG A. phagocytophilum IgM A. phagocytophilum DNA A.phagocytophilum Intrp A. phagocytophilum Cmmt Lyme Disease IgG Ab Lyme Disease IgM Ab E. chaffeensis IgG Ab E. chaffeensis IgM Ab E. chaffeensis Interp E. chaffeensis Comment Influenza Type A (PCR) Influenza Type B (PCR) 08/02/18 08/02/18 08/02/18 20:53 21:00 21:05 WBC RBC Hgb Hct MCV MCH MCHC RDW Std Deviation RDW Coeff of Allie Plt Count MPV Immature Gran % (Auto) Neut % (Auto) Lymph % (Auto) [place] % (Auto) Eos % (Auto) Baso % (Auto) Immature Gran # (Auto) Neut # (Auto) Lymph # (Auto) [place] # (Auto) Eos # (Auto) Baso # (Auto) Platelet Estimate Giant Platelets RBC Morphology Peripher Smr Path Cons PT INR APTT PTT Ratio Sodium 135 L Potassium 4.2 Chloride 104 Carbon Dioxide 21 Anion Gap 10.0 BUN 31 H Creatinine 1.73 H Est Cr Clr Drug Dosing 36.6 Est GFR ( Amer) 40.8 Est GFR (Non-Af Amer) 35.2 BUN/Creatinine Ratio 17.7 Glucose 259 H POC Lactic Acid Porfirio 2.52 H Calcium 8.6 Magnesium Total Bilirubin 0.7 AST 72 H ALT 35 Alkaline Phosphatase 69 Total Creatine Kinase 1398 H CK-MB (CK-2) 4.3 H CK/CKMB % Calc 0.3 Troponin I < 0.015 Total Protein 6.9 Albumin 3.4 Globulin 3.5 Albumin/Globulin Ratio 1.0 Specimen Hemolysis Urine Color Urine Appearance Urine pH Ur Specific [place] Urine Protein Urine Glucose (UA) Urine Ketones Urine Blood Urine Nitrite Urine Bilirubin Urine Urobilinogen Ur Leukocyte Esterase Urine WBC (Auto) Urine RBC (Auto) U Hyaline Cast (Auto) U Epithel Cells (Auto) Urine Bacteria (Auto) Amorphous Sediment Urine Yeast A. phagocytophilum IgG A. phagocytophilum IgM A. phagocytophilum DNA A.phagocytophilum Intrp A. phagocytophilum Cmmt Lyme Disease IgG Ab Lyme Disease IgM Ab E. chaffeensis IgG Ab E. chaffeensis IgM Ab E. chaffeensis Interp E. chaffeensis Comment Influenza Type A (PCR) Neg for Influ A Influenza Type B (PCR) Neg for Influ B 08/02/18 08/02/18 08/03/18 21:19 21:19 00:23 WBC RBC Hgb Hct MCV MCH MCHC RDW Std Deviation RDW Coeff of Allie Plt Count MPV Immature Gran % (Auto) Neut % (Auto) Lymph % (Auto) [place] % (Auto) Eos % (Auto) Baso % (Auto) Immature Gran # (Auto) Neut # (Auto) Lymph # (Auto) [place] # (Auto) Eos # (Auto) Baso # (Auto) Platelet Estimate Giant Platelets RBC Morphology Peripher Smr Path Cons PT INR APTT PTT Ratio Sodium Potassium Chloride Carbon Dioxide Anion Gap BUN Creatinine Est Cr Clr Drug Dosing Est GFR ( Amer) Est GFR (Non-Af Amer) BUN/Creatinine Ratio Glucose POC Lactic Acid Porfirio Calcium Magnesium Total Bilirubin AST ALT Alkaline Phosphatase Total Creatine Kinase 1245 H CK-MB (CK-2) CK/CKMB % Calc Troponin I Total Protein Albumin Globulin Albumin/Globulin Ratio Specimen Hemolysis Urine Color Urine Appearance Urine pH Ur Specific [place] Urine Protein Urine Glucose (UA) Urine Ketones Urine Blood Urine Nitrite Urine Bilirubin Urine Urobilinogen Ur Leukocyte Esterase Urine WBC (Auto) Urine RBC (Auto) U Hyaline Cast (Auto) U Epithel Cells (Auto) Urine Bacteria (Auto) Amorphous Sediment Urine Yeast A. phagocytophilum IgG Pending A. phagocytophilum IgM Pending A. phagocytophilum DNA Pending A.phagocytophilum Intrp Pending A. phagocytophilum Cmmt Pending Lyme Disease IgG Ab Negative Lyme Disease IgM Ab Negative E. chaffeensis IgG Ab Pending E. chaffeensis IgM Ab Pending E. chaffeensis Interp Pending E. chaffeensis Comment Pending Influenza Type A (PCR) Influenza Type B (PCR) 08/03/18 08/03/18 08/03/18 05:21 05:21 12:34 WBC 4.08 L RBC 4.18 L Hgb 13.6 L Hct 38.9 L MCV 93.1 MCH 32.5 MCHC 35.0 RDW Std Deviation 43.8 RDW Coeff of Allie 13.0 Plt Count 50 L MPV 10.2 Immature Gran % (Auto) 0.5 Neut % (Auto) 73.3 Lymph % (Auto) 15.9 [place] % (Auto) 10.3 Eos % (Auto) 0.0 Baso % (Auto) 0.0 Immature Gran # (Auto) 0.02 Neut # (Auto) 2.99 Lymph # (Auto) 0.65 L [place] # (Auto) 0.42 Eos # (Auto) 0.00 Baso # (Auto) 0.00 Platelet Estimate Giant Platelets 1+ RBC Morphology Peripher Smr Path Cons PT INR APTT PTT Ratio Sodium 137 Potassium 3.9 Chloride 105 Carbon Dioxide 26 Anion Gap 6.0 BUN 29 H Creatinine 1.83 H Est Cr Clr Drug Dosing 34.2 Est GFR ( Amer) 38.1 Est GFR (Non-Af Amer) 32.9 BUN/Creatinine Ratio 16.0 Glucose 128 H POC Lactic Acid Porfirio Calcium 8.1 L Magnesium 1.3 L Total Bilirubin AST ALT Alkaline Phosphatase Total Creatine Kinase 938 H CK-MB (CK-2) CK/CKMB % Calc Troponin I Total Protein Albumin Globulin Albumin/Globulin Ratio Specimen Hemolysis Urine Color Urine Appearance Urine pH Ur Specific [place] Urine Protein Urine Glucose (UA) Urine Ketones Urine Blood Urine Nitrite Urine Bilirubin Urine Urobilinogen Ur Leukocyte Esterase Urine WBC (Auto) Urine RBC (Auto) U Hyaline Cast (Auto) U Epithel Cells (Auto) Urine Bacteria (Auto) Amorphous Sediment Urine Yeast A. phagocytophilum IgG A. phagocytophilum IgM A. phagocytophilum DNA A.phagocytophilum Intrp A. phagocytophilum Cmmt Lyme Disease IgG Ab Lyme Disease IgM Ab E. chaffeensis IgG Ab E. chaffeensis IgM Ab E. chaffeensis Interp E. chaffeensis Comment Influenza Type A (PCR) Influenza Type B (PCR) Medications Administered Home Medications aspirin 81 mg tablet,delayed release 81 mg PO QAM 01/31/19 [History Confirmed 08/02/18] carvedilol 25 mg tablet 25 mg PO BID 03/12/18 [History Confirmed 08/02/18] metformin 1,000 mg tablet 1,000 mg PO BID 03/12/18 [History Confirmed 08/02/18] pantoprazole 40 mg tablet,delayed release 40 mg PO QAM 03/12/18 [History Confirmed 08/02/18] clonidine HCl 0.1 mg PO UD PRN 04/25/18 [History Confirmed 08/02/18] amlodipine 2.5 mg PO DAILY 07/02/18 [History Confirmed 08/02/18] glimepiride 4 mg PO BID 07/02/18 [History Confirmed 08/02/18] clopidogrel 75 mg PO QAM #30 tab 07/04/18 [Rx Confirmed 08/02/18] benzonatate 200 mg capsule 200 mg PO Q8 PRN #21 cap 07/27/18 [History Confirmed 08/02/18] valsartan 160 mg tablet 160 mg PO BID tab 07/27/18 [History Confirmed 08/02/18] atorvastatin 80 mg PO HS 08/02/18 [History Confirmed 08/02/18] cholecalciferol (vitamin D3) [Vitamin D3] 1,000 unit PO DAILY 08/02/18 [History Confirmed 08/02/18] Active Medications Acetaminophen (Tylenol) 650 mg PO Q4H PRN PRN Reason: pain/fever Stop: 09/02/18 00:12 Al Hydrox/Mg Hydrox/Simethicone (Maalox) 30 ml PO Q6H PRN PRN Reason: Dyspepsia Stop: 09/02/18 00:12 Amlodipine Besylate (Norvasc) 2.5 mg PO DAILY [facility] Stop: 09/02/18 08:59 Last Admin: 08/03/18 10:09 Dose: 2.5 mg Documented by: Aspirin (Ecotrin Ectab) 81 mg PO QAM DERICK Stop: 09/02/18 08:59 Last Admin: 08/03/18 10:08 Dose: 81 mg Documented by: Atorvastatin Calcium (Lipitor) 80 mg PO HS [facility] Stop: 09/02/18 20:59 Carvedilol (Coreg) 25 mg PO BID [facility] Stop: 09/02/18 08:59 Last Admin: 08/03/18 10:07 Dose: 25 mg Documented by: Clonidine HCl (Catapres) 0.1 mg PO PRN PRN PRN Reason: SBP > 165 Stop: 09/02/18 00:12 Clopidogrel Bisulfate (Plavix) 75 mg PO QAM [facility] Stop: 09/02/18 08:59 Last Admin: 08/03/18 10:10 Dose: 75 mg Documented by: Heparin Sodium (Porcine) (Heparin Sodium (Porcine)) 5,000 units SQ Q12 [facility] Stop: 09/02/18 20:59 Doxycycline Hyclate 100 mg/ (Dextrose) 110 mls @ 50 mls/hr IV Q12H [facility]; Protocol Stop: 08/17/18 08:59 Last Infusion: 08/03/18 13:05 Dose: Infused Documented by: Magnesium Hydroxide (Milk Of Magnesia) 30 ml PO Q6H PRN PRN Reason: Constipation Stop: 09/02/18 00:12 Magnesium Oxide (Mag-Ox) 400 mg PO BID [facility] Stop: 09/02/18 08:59 Last Admin: 08/03/18 10:08 Dose: 400 mg Documented by: Ondansetron HCl (Zofran) 4 mg IV Q6H PRN PRN Reason: Nausea Stop: 09/02/18 00:12 Pantoprazole Sodium (Protonix) 40 mg PO QAM [facility] Stop: 09/02/18 08:59 Last Admin: 08/03/18 10:10 Dose: 40 mg Documented by: Polyethylene Glycol (Miralax Powder Packet) 17 gm PO DAILY PRN PRN Reason: Constipation Stop: 09/02/18 00:12 PG Care Time/CCT Total # of Minutes Spent Total Time Spent with Patient: Total time spent is greater than 50% in coordination of care (as documented) at patient's floor/unit and/or counseling patient: Resident Activity Tracking Resident Involvement: Resident Care Provided Care Provided: Adult Hospital Medicine
[2018-08-03] MEDS: DICLOFENAC SOD 1% GEL 100 GM TUBE EXT SCH ×2 (17:40→20:56)
[2018-08-03] MEDS ORDERED: CARBOHYDRATES FOR HYPOGLYCEMIA PO PRN (20:30)
[2018-08-03] MEDS ORDERED: GLUCAGON FOR INJ 1 MG VIAL IM PRN (20:30)
[2018-08-03] MEDS ORDERED: GLUCOSE 40% GEL 15 GM TUBE PO PRN (20:30)
[2018-08-03] MEDS ORDERED: GLUCOSE 10 TABS/TUBE PO PRN (20:30)
[2018-08-03] MEDS ORDERED: DEXTROSE 50% 50 ML SYRINGE IV PRN (20:30)
[2018-08-03] MEDS: HEPARIN SOD 5,000 UNIT/0.5 ML VIAL SQ SCH (20:52)
[2018-08-03] MEDS: INSULIN ASPART 100 UNITS/ML 3 ML PEN SC SCH (20:55)
[2018-08-03] MEDS ORDERED: ATORVASTATIN 40 MG TAB PO SCH (21:00)
[2018-08-04 05:58] LABS: Hemoglobin 13.8 g/dL (14.0-18.0); Mean Corpuscular Hgb Conc 36.3 g/dL (32-36); Mean Corpuscular Volume 91.8 fL (80-100); RDW Coefficient of Variation 12.8 % (11.5-14.5); Red Blood Count 4.14 M/uL (4.7-6.1); White Blood Count 2.77 K/uL (4.8-10.8)
[2018-08-04 05:59] LABS: Mean Platelet Volume 10.8 fL (7.4-10.4); Platelet Count 45 K/uL (130-400)
[2018-08-04 06:24] LABS: Basophils # (auto) 0.03 K/uL (0-0.2); Basophils % (auto) 1.1 %; Eosinophils # (auto) 0.03 K/uL (0-0.5); Eosinophils % (auto) 1.1 %; Giant Platelets 1+; Lymphocytes % (auto) 32.5 %; Monocytes # (auto) 0.49 K/uL (0.11-0.59); Monocytes % (auto) 17.7 %; Neutrophils # (auto) 1.32 K/uL (1.4-6.5); Neutrophils % (auto) 47.6 %; Toxic Vacuolation 1+
[2018-08-04 06:35] LABS: BUN Creatinine Ratio 18.9 (10-20); Calcium 8.8 mg/dl (8.5-10.1); Creatinine Clr Calc Pharmacy 39.9 ml/min; Est GFR (African American) 45.9; Est GFR (Non-African American) 39.6; Potassium 3.8 mmol/L (3.5-5.1)
[2018-08-04 06:38] LABS: Albumin Globulin Ratio 0.9 (0.9-2); Bilirubin,Total 0.5 mg/dl (0.2-1); Globulin 3.3 gm/dl (2.5-4.0); Total Protein 6.3 gm/dl (6.4-8.2)
--- NOTE | 2018-08-04 06:46 | Family Medicine Progress Note ---
Date of Service August 04, 2018 Assessment & Plan (1) Anaplasmosis: 87 y/o M Hx CAD, HTN, HLD, DMII, CKD III, chronic back pain, GERD who presented with fevers, confusion, and cough. 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 -Lyme pending -continue to monitor symptoms. Rhabdomyolysis -creatinine kinase of ~2000 -pt on fluids -will continue to monitor KRISTINE -Likely due to recent infection/inflammation, dehydration -given continued rise this AM will hold ARB -continue IV fluids, continue PO hydration. -will continue to monitor with AM labs CAD -no evidence of ACS -cont carvedilol, AA, statin DM -ISS HTN -cont scheduled meds and PRN clonidine FEN/GI: Heart healthy, IV fluids CODE STATUS: Full code DVT prophylaxis: SCDs Results & Data Vital Signs (Past 12 Hours) Vital Signs Temp Pulse Resp BP BP Pulse Ox 08/03/18 23:46 37.2 C 73 18 122/64 97 08/03/18 20:49 72 122/65 PG Care Time/CCT Total # of Minutes Spent Total Time Spent with Patient: Total time spent is greater than 50% in coordination of care (as documented) at patient's floor/unit and/or counseling patient:
[2018-08-04] MEDS: AMLODIPINE BESYLATE 5 MG TAB PO SCH (08:49)
[2018-08-04] MEDS: CARVEDILOL 25 MG TAB PO SCH (08:49)
[2018-08-04] MEDS: ASPIRIN 81 MG ECTAB PO SCH (08:49)
[2018-08-04] MEDS: CLOPIDOGREL BISULFATE 75 MG TAB PO SCH (08:49)
[2018-08-04] MEDS: MAGNESIUM OXIDE 400 MG TAB PO SCH (08:49)
[2018-08-04] MEDS: PANTOprazole 40 MG TAB PO SCH (08:49)
[2018-08-04] MEDS: DICLOFENAC SOD 1% GEL 100 GM TUBE EXT SCH ×2 (08:50→09:06)
[2018-08-04] MEDS: HEPARIN SOD 5,000 UNIT/0.5 ML VIAL SQ SCH (08:52)
[2018-08-04] MEDS: DOXYCYCLINE HYCLATE 100 MG in DEXTROSE 5% 100 ML IV SCH (08:52)
[2018-08-04] MEDS: INSULIN ASPART 100 UNITS/ML 3 ML PEN SC SCH ×2 (08:55→12:03)
[2018-08-04] MEDS ORDERED: NICOTINE 21 MG/24 HR TDSY TD SCH (10:15)
--- NOTE | 2018-08-04 11:28 | Discharge Summary ---
Date of Service August 04, 2018 Admission HPI Per Admitting Provider 87 y/o M Hx CAD, HTN, HLD, DMII, CKD III, chronic back pain, GERD. Presenting with fever and confusion. The pt suffered a tick bite a few weeks ago and was placed on a short course of Doxy empirically by his GP. He was febrile on arrival to the ER. He may not currently be a reliable historian as he complains of coughing only. Weakness and confusion were reported by family. He had not had a cough in the ER and a CXR was clear. 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 PMH: 1) CAD - the pt was admitted to the hospital with CP 06/2018. 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 The report indicated severe CAD. 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 Chest/heart: Nontender, S1,2, RRR, no murmurs, no gallops Lungs: CTAB, no wheezing or crackles Abdomen: Nontender, nondistended, BS+ Neuro: Speech is clear, no unilateral weakness or loss of sensation, coordination intact Musculoskeletal: No joint inflammation, muscle tenderness, FROM Skin: No acute rashes or ulcers Extremities: No clubbing, cyanosis, edema Principal Diagnosis Anaplasmosis Discharge Exam General: Alert, oriented. HEENT: NC/AT, PERRLA, EOMI, oropharynx moist. Chest: Nontender to palpation except for right rib area. CV: RRR, Normal s1, s2. Resp: Breath sounds clear. Abdomen: Soft, nontender, nondistended. Extremities: No edema. Discharge Data Allergies Allergy/AdvReac Type Severity Reaction Status Date / Time No Known Allergies Allergy Verified 08/02/18 21:06 Consultations 08/02/18 22:01 ED Decision to Admit Stat Hospital Course (1) Anaplasmosis: 87 y/o M Hx CAD, HTN, HLD, DMII, CKD III, chronic back pain, GERD who presented with fevers, confusion, and cough. He was diagnosed with anaplasmosis. Pt was admitted on August 03 and discharged on August 04 2018. On day of discharge he was much improved in terms of energy level as he demanded discharge and threatened to leave AMA, however his leukopenia, thrombocytopenia and AST levels were not much improved. Of note, he had only received 1 day's worth of doxycycline treatment. However, he was felt to be stable enough to be discharged with close PCP followup and continued CBC and CMP monitoring. Pt also had an upcoming appointment with his prepress manager Dr. Waite in a few days, where further monitoring was set to occur. Anaplasmosis -doxycycline for 14 day course in total. Discharged with 13 more days worth. -s/p 1 dose of 2g rocephin in ED. -discharged with lab monitoring prescription of CBC and CMP to be done in the next two days, when he also has appointment for followup. -Lyme was NEGATIVE, anaplasmosis titers were pending on discharge. - Close PCP followup strongly suggested. Rhabdomyolysis -creatinine kinase of ~2000 -pt on fluids for treatment. KRISTINE -Likely due to recent infection/inflammation, dehydration -given continued rise following day, ARB was held while hospitalized. Metformin was also held. Both were restarted on discharge but close neph/PCP monitoring strongly recommended. -Pt also advised to drink about 10 8oz bottles of water on discharge per day, after being treated with IV fluids here. -Some improvement in cr function seen on day of discharge. -Close PCP and prepress manager followup strongly recommended. CAD -no evidence of ACS -cont carvedilol, statin DM -ISS. restarted home meds on discharge. HTN -cont scheduled meds and PRN clonidine Total Time Total Time Spent Total Time Spent (In Minutes): <30 Discharge Plan Discharge Items Patient Disposition: Home - Self-Care Reason For Visit: ANAPLASMOSIS, RHABDO Discharge Diagnosis: ANAPLASMOSIS Discharge Goals: Decrease discomfort and Improve disease control Activity: Per 'Additional Instructions' section Non-emergency contact: Primary Care Provider Call non-emergency contact if: your symptoms worsen and you have a fever Follow-up/Referrals: Miguel Olivares MD [Primary Care Provider] - 08/18/18 3:15 pm (follow appointment with your primary care physician) Diet: Heart Healthy Addtl Provider Instructions: You were treated for anaplasmosis while hospitalized with doxycycline. You are being discharged with 13 more days, please continue to take as directed. Your kidney function was also affected and you were treated with IV fluids. It seems to be improving. Please continue to drink about 10 8oz bottles of water per day to ensure that your kidney function returns to normal. You will need very close followup with your primary care doctor after discharge. Please followup in the next 2 days. Please have your bloodwork done according to the prescription you received in the next 2 days as well. Please keep your scheduled appointment with Dr. Waite. He will review your bloodwork at that time as well. Please go to the nearest emergency room should you suddenly develop the acute onset of fevers, or your symptoms return or worsen. Prescriptions: New doxycycline hyclate 100 mg tablet 100 mg PO BID 13 Days Qty: 26 RF: 0 Continued carvedilol 25 mg tablet 25 mg PO BID RF: 0 aspirin [Adult Aspirin Regimen] 81 mg tablet,delayed release (DR/EC) 81 mg PO QAM RF: 0 pantoprazole 40 mg tablet,delayed release (DR/EC) 40 mg PO QAM RF: 0 metformin 1,000 mg tablet 1,000 mg PO BID RF: 0 valsartan 160 mg tablet 160 mg PO BID RF: 0 benzonatate 200 mg capsule 200 mg PO Q8 PRN (Reason: Cough) Qty: 21 RF: 0 glimepiride 4 mg tablet 4 mg PO BID RF: 0 amlodipine 2.5 mg tablet 2.5 mg PO DAILY RF: 0 clopidogrel 75 mg Tablet 75 mg PO QAM Qty: 30 RF: 0 clonidine HCl 0.1 mg Tablet 0.1 mg PO UD PRN (Reason: Blood Pressure) RF: 0 atorvastatin 80 mg Tablet 80 mg PO HS RF: 0 cholecalciferol (vitamin D3) [Vitamin D3] 1,000 unit Capsule 1,000 unit PO DAILY RF: 0 Stand-Alone Forms: [facility] Discharge Orders: Discharge Order (Routine); Ordered 08/04/18 Ordered By: Carolina Johnson Admission Data Admit Date/Time: 08/02/18 23:01 Attending Provider: Andrea Angela Admit Provider: Bashir Cruz Primary Care Provider: Miguel Olivares Other Providers: Bashir Cruz Service: Medical Other Interventions: Discharge Summary Assessment (RN) Last Done: 08/04/18 11:46 DC Date/Time DO NOT enter until pt leaves facility: 08/04/18 12:30 Supervising Physician Co-Signing Physician Notes I personally examined the patient and verified all miguel points of history and exam, discussed case, and agree with decision making with Dr Johnson. feeling much better, wants to go home. feeling more like himself. no new complaints. otherwise as above Vitals noted, in general he is awake and alert no distress. HEENT normocephalic atraumatic mucous members moist. Skin no rashes no pallor or icterus. Breathing unlabored no accessory muscles good effort. Extremities show no cyanosis clubbing or edema. No focal neuro deficits. Anaplasmosisdoing better, stable for home, PO doxy finish 14 days treatment. Possible metabolic encephalopathy - related to anaplasmosis on admission - doing better now. stable for home. Elevated creatinine/acute kidney injury superimposed on stage III CKDelevation likely related to dehydration from anaplasmosis. stable for home, rec'd increased PO intake, BMP 2 days as outpt. DVT proph - heparin SQ Resident Activity Tracking Resident Involvement: Resident Care Provided Care Provided: Adult Hospital Medicine
[2018-08-04] MEDS ORDERED: DOXYCYCLINE HYCLATE 100 MG CAP PO SCH (21:00)
--- NOTE | 2018-08-05 14:17 | Family Medicine Progress Note ---
Date of Service August 03, 2018 PG Care Time/CCT Total # of Minutes Spent Total Time Spent with Patient: Total time spent is greater than 50% in coordination of care (as documented) at patient's floor/unit and/or counseling patient: Prolonged Care Time Prolonged Care Time: Yes Total Prolonged Care Time: 30 Critical Care Time Prolonged Care Time Prolonged Care Time: Yes Total Prolonged Care Time: 30
[2018-08-05 19:05] LABS: Anaplasma phagocytophila IgM <1:20 (<1:20); Ehrlichia chaff IgG Ab <1:64 (<1:64); Ehrlichia chaff IgM Ab <1:20 (<1:20)
== END 2018-08-04 12:30 | disposition home or self-care (01) | DRG 867 ==
LOC: ED 20:32 → 2N 23:01 → SUATTDRO 23:01 → 2N 23:31

== ENCOUNTER 2018-10-29 11:54 | Observation (INO) ==
[2018-10-29] MEDS ORDERED: ASPIRIN CHEW 324 MG PO STA (12:05)
[2018-10-29] MEDS ORDERED: SODIUM CHLORIDE 0.9% 1000ML 1,000 ML IV SCH (12:15)
[2018-10-29 12:28] LABS: Basophils # (auto) 0.02 K/uL (0-0.2); Basophils % (auto) 0.3 %; Eosinophils # (auto) 0.12 K/uL (0-0.5); Eosinophils % (auto) 1.9 %; Hematocrit (blood only) 43.8 % (42-52); Hemoglobin 15.7 g/dL (14.0-18.0); Immature Granulocytes # (auto) 0.01 K/uL (0.00-0.02); Immature Granulocytes % (auto) 0.2 %; Lymphocytes # (auto) 1.35 K/uL (1.2-3.4); Lymphocytes % (auto) 21.7 %; Mean Corpuscular Hemoglobin 32.8 pg (25-34); Mean Corpuscular Hgb Conc 35.8 g/dL (32-36); Mean Corpuscular Volume 91.6 fL (80-100); Mean Platelet Volume 10.5 fL (7.4-10.4); Monocytes # (auto) 0.65 K/uL (0.11-0.59); Monocytes % (auto) 10.5 %; Neutrophils # (auto) 4.07 K/uL (1.4-6.5); Neutrophils % (auto) 65.4 %; Platelet Count 158 K/uL (130-400); RDW Coefficient of Variation 13.9 % (11.5-14.5); RDW Standard Deviation 46.3 fL (36.4-46.3); Red Blood Count 4.78 M/uL (4.7-6.1); White Blood Count 6.22 K/uL (4.8-10.8)
[2018-10-29 12:55] LABS: BUN Creatinine Ratio 14.4 (10-20); Blood Urea Nitrogen 23 mg/dl (7-18); Calcium 9.2 mg/dl (8.5-10.1); Carbon Dioxide 27 mmol/L (21-32); Chloride 103 mmol/L (98-107); Est GFR (African American) 45.9; Est GFR (Non-African American) 39.6; Glucose 206 mg/dl (70-99); Lipase 364 U/L (73-393); Sodium 136 mmol/L (136-145); Troponin I < 0.015 ng/ml (0-0.045)
--- NOTE | 2018-10-29 12:55 | XRay Report ---
XR chest 1V portable CLINICAL HISTORY: 87 years-old Male presenting with Chest Pain. TECHNIQUE: Portable upright AP view of the chest was obtained. COMPARISON: 08/02/2018. FINDINGS: Atherosclerosis of the aortic arch. Cardiac silhouette enlarged. Diffusely coarsened lung markings. E levation of the left hemidiaphragm as on prior exam. Interstitial lung markings are prominent as on p rior exam. No new focal opacity. No large effusion or pneumothorax. Osseous structures grossly normal . Persistent gaseous distention of colon beneath the left hemidiaphragm. IMPRESSION: 1. Cardiomegaly with mild congestive change. No deanna pulmonary edema. Findings are similar to prior . Electronically signed by: Miguel Hennessy M.D. 10/29/2018 12:54 PM
[2018-10-29 13:34] LABS: INR 1.2 (0.9-1.1); Partial Thromboplastin Ratio 1.1; Prothrombin Time 12.1 Seconds (9.0-12.0)
[2018-10-29 13:37] LABS: D Dimer 2520 ug/L FEU (0-500)
[2018-10-29] MEDS ORDERED: OPTIRAY 320 125ml IV PRN (13:56)
--- NOTE | 2018-10-29 14:17 | CT Scan Report ---
CT angio chest PE protocol CT DOSE: 502.42 mGy.cm HISTORY: Chest pain. Dyspnea. ro PE TECHNIQUE: Multiaxial CT images of the chest were performed following the intravenous administration of contrast to evaluate the pulmonary arteries. Maximal intensity projection images were also obtaine d. A dose lowering technique was utilized adhering to the principles of ALARA. COMPARISON STUDY: 06/02/2012 FINDINGS: Diffuse parenchymal fibrosis considered chronic. Pulmonary vasculature enhances appropriate ly. No evidence for filling defect or pulmonary embolus. Mediastinal adenopathy is unaltered. Heart is moderately enlarged and stable. Upper abdomen demonstrates stable bilateral renal cysts. There is a component of fatty infiltration o f the liver. IMPRESSION: 1. No evidence for pulmonary embolus. 2. Diffuse parenchymal fibrotic change/chronic interstitial change considered unaltered. The above report was generated using voice recognition software. It may contain grammatical, syntax or spelling errors. Electronically signed by: Dion Samson M.D. 10/29/2018 2:15 PM
--- NOTE | 2018-10-29 16:30 | Emergency Department Note ---
Entered by Elias Barahona acting as a scribe for History of Present Illness General Chief complaint: Cardiac Assessment Stated complaint: HEART PROBLEMS PRIOR STENTS CHEST PAIN Time Seen by Provider: 10/29/18 12:00 Source: patient History of Present Illness Provider complaint: Chest pain Onset (ago): day(s) 1 Location: chest Severity: similar to prior episodes Pain Consistency: + intermittent Maximum Pain Intensity: 2 Current Pain Intensity: 2 Relieved By: + none Exacerbated By: + none Associated symptoms: + denies other symptoms (Hemoptysis), + shortness of breath and + other (Jaw numbness); no cough The patient is an 87 year old male who presents to the Emergency Room with complaints of intermittent chest pain that started last night. The patient rates the pain as a 3/10 at its worst and notes nothing makes it better or worse. The patients that with the pain he also was short of breath and had some jaw numbness. The patient adds that currently he does not feel much chest pain and rates it as a 0/10. The patient notes that yesterday he noticed his blood pressure was elevated, however upon arrival he is running normal pressures. The patient denies taking any Aspirin today but he did take all of his other medications. He denies any recent travel, hemoptysis, hematuria, or hematochezia, but he did have a coronary stent placed a month ago. Home Medications Home Medications Medication Instructions Recorded Confirmed Type aspirin 81 mg tablet,delayed 81 mg PO QAM 03/12/18 10/29/18 History release pantoprazole 40 mg tablet,delayed 40 mg PO QAM 03/12/18 10/29/18 History release clonidine HCl 0.1 mg PO UD PRN 04/25/18 10/29/18 History glimepiride 4 mg PO BID 07/02/18 10/29/18 History clopidogrel 75 mg PO QAM #30 tab 07/04/18 10/29/18 Rx atorvastatin 80 mg PO HS 08/02/18 10/29/18 History cholecalciferol (vitamin D3) 1,000 unit PO DAILY 08/02/18 10/29/18 History [Vitamin D3] carvedilol 25 mg tablet 25 mg PO BID 08/25/18 10/29/18 History metformin 1,000 mg tablet 1,000 mg PO BID #180 tab 08/25/18 10/29/18 Rx blood sugar diagnostic 1 ea MS TID 09/11/18 10/29/18 History valsartan 160 mg tablet 160 mg PO BID #180 tab 10/21/18 10/29/18 Rx Allergies Allergy/AdvReac Type Severity Reaction Status Date / Time No Known Allergies Allergy Verified 09/11/18 10:14 Past Med/Surg History Medical History Actinic keratosis Atrial premature complex BMI 29.0-29.9,adult Benign localized prostatic hyperplasia with lower urinary tract symptoms (LUTS) CKD (chronic kidney disease), stage III Chews tobacco regularly Constipation Diabetic nephropathy Diabetic peripheral neuropathy Dieulafoy lesion of stomach Erythematous papules of skin Gastritis Hiatal hernia History of SCC (squamous cell carcinoma) of skin Hypertension Post-void dribbling SI joint arthritis Type 2 diabetes mellitus Unilateral primary osteoarthritis, left hip Urinary hesitancy Visual impairment Vitamin D deficiency Diabetes mellitus (Chronic) Chest pain (Resolved 10/27/13) Helicobacter pylori ab+ (Resolved 10/27/13) Chest pain (Resolved) H. pylori infection (Resolved) Dizziness (Resolved) Depression (Chronic) GERD (gastroesophageal reflux disease) (Chronic) Abdominal gas pain (Chronic) Arm pain, left (Resolved) Cardiac enzymes elevated (Resolved) Hypertension (Chronic) Hypokalemia (Resolved) Poorly-controlled hypertension (Chronic) Anaplasmosis Surgical History History of appendectomy (Resolved) Family History Unknown Diabetes Coronary heart disease Other Family history non-contributory Social History Preferred Language: [place] Communication Ability: Effective Tapper Balance Wheel Screw Hole Required: No Beliefs That Will Affect Care: None Current Living Situation: Spouse Feels Safe at Home: Yes Smoking Status: Never smoker Tobacco Type: smokeless tobacco ; Hx Alcohol Use: No Hx Substance Use: No Review of Systems See HPI for pertinent positives & negatives. and A total of 10 systems reviewed and were otherwise negative Physical Exam Vital Signs Vital Signs - 24 hr 10/29/18 11:55 10/29/18 12:15 10/29/18 12:31 Temperature 36.4 C L Temperature Source Oral Sepsis Recent Fever Within 48 Hours No Sepsis New/Unexplained Change in Mental Status No Sepsis Action Taken by Nursing No Action Required Pulse Rate 77 77 76 Pulse Rate from SpO2 Sensor 75 Respiratory Rate 20 20 20 Blood Pressure 162/87 H 127/72 Blood Pressure Mean 112 90 Pulse Oximetry 99 99 98 Oxygen Delivery Method Room Air Room Air Room Air 10/29/18 13:01 10/29/18 13:31 10/29/18 15:01 Temperature Temperature Source Sepsis Recent Fever Within 48 Hours Sepsis New/Unexplained Change in Mental Status Sepsis Action Taken by Nursing Pulse Rate 75 71 65 Pulse Rate from SpO2 Sensor 74 71 65 Respiratory Rate 18 21 18 Blood Pressure 124/70 118/71 115/55 L Blood Pressure Mean 88 86 75 Pulse Oximetry 97 98 96 Oxygen Delivery Method Room Air Room Air Room Air 10/29/18 15:31 Temperature Temperature Source Sepsis Recent Fever Within 48 Hours Sepsis New/Unexplained Change in Mental Status Sepsis Action Taken by Nursing Pulse Rate 67 Pulse Rate from SpO2 Sensor 66 Respiratory Rate 16 Blood Pressure 101/65 Blood Pressure Mean 77 Pulse Oximetry 98 Oxygen Delivery Method Room Air .GENERAL: He is oriented to person, place, and time. He appears well-developed and well-nourished. He does not appear distressed. HENT: Exam performed. - Head: Normocephalic and atraumatic. - Right Ear: External ear normal. No mastoid tenderness. - Left Ear: External ear normal. No mastoid tenderness. - Mouth/Throat: The oropharynx is clear and moist. No trismus in the jaw. No dental abscesses or uvula swelling. No oropharyngeal exudate or tonsillar abscesses. EYES: Conjunctivae and EOM are normal. Pupils are equal, round, and reactive to light. Right eye exhibits no discharge. Left eye exhibits no discharge. No scleral icterus. NECK: Normal range of motion. Neck supple. No JVD present. No spinous process tenderness present. No carotid bruit present. No rigidity. No tracheal deviation and normal range of motion present. No Brudzinski's sign and no Kernig's sign noted. CV: Normal rate, regular rhythm, normal heart sounds and intact distal pulses. There is no peripheral edema. Palpable radial pulses bue. PULM/CHEST: Effort normal and breath sounds normal. No respiratory distress. No stridor. He has no wheezes. He has no rales. - Chest Wall: He exhibits no tenderness. ABD: The abdomen is soft. Bowel sounds are normal. He has no distension. No mass is present. There is no tenderness. There is no rebound, no guarding, no Grove's sign and no tenderness at McBurney's point. Rovsig negative. MUSC/SKEL: Normal range of motion. There is no peripheral edema, tenderness or deformity. LYMPH: No cervical adenopathy. NEURO: He is alert and oriented to person, place, and time. He has normal strength. No cranial nerve deficit or sensory deficit. Coordination and gait normal. GCS eye subscore is 4. GCS verbal subscore is 5. GCS motor subscore is 6. Cerebellar tests wnl. SKIN: Skin is warm and dry. He is not diaphoretic. PSYCH: He has a normal mood and affect. Behavior is normal. Judgment and thought content normal. Course 1203: Past medical records reviewed. The patient was evaluated in room A03, and a complete history and physical examination were performed. 1453: Vital signs are stable. Labs and imaging are within normal limits. The patient will be admitted for a chest pain work up to rule out ACS. I spoke to Dr. Rodriguez [facility] Hospitalist about the patient's case. He is going to accept the patient for further evaluation. Consultations Consultation #1: I spoke to Dr. Rodriguez [facility] Hospitalist about the patient's case. He is going to accept the patient for further evaluation. Time: 14:53 Administered Medications Sodium Chloride (Nss 1000ml) 1,000 mls @ 80 mls/hr IV .[id number] [facility] Stop: 11/28/18 12:14 Last Admin: 10/29/18 12:27 Dose: 80 mls/hr Documented by: [id number] Ioversol (Optiray 320 125ml) 120 ml IV ONCE PRN PRN Reason: Interaction Checking Stop: 11/02/18 13:55 Last Admin: 10/29/18 13:57 Dose: 120 ml Documented by: [id number] Discontinued Medications Aspirin (Aspirin) 324 mg PO NOW STA Stop: 10/29/18 12:06 Last Admin: 10/29/18 12:28 Dose: 324 mg Documented by: [id number] Medical Decision Making Medical Records Attestation: I reviewed the patient's medical records. Home Medications Current Medication List: was personally reviewed by me Laboratory Data Attestation: I reviewed the patient's lab results. Result diagrams: 10/29/18 12:15 10/29/18 13:09 Lab Results 10/29/18 10/29/18 10/29/18 Range/Units 12:15 12:15 12:15 WBC 6.22 (4.8-10.8) K/uL RBC 4.78 (4.7-6.1) M/uL Hgb 15.7 (14.0-18.0) g/dL Hct 43.8 (42-52) % MCV 91.6 (80-100) fL MCH 32.8 (25-34) pg MCHC 35.8 (32-36) g/dL RDW Std Deviation 46.3 (36.4-46.3) fL RDW Coeff of Allie 13.9 (11.5-14.5) % Plt Count 158 (130-400) K/uL MPV 10.5 H (7.4-10.4) fL Immature Gran % (Auto) 0.2 % Neut % (Auto) 65.4 % Lymph % (Auto) 21.7 % [place] % (Auto) 10.5 % Eos % (Auto) 1.9 % Baso % (Auto) 0.3 % Immature Gran # (Auto) 0.01 (0.00-0.02) K/uL Neut # (Auto) 4.07 (1.4-6.5) K/uL Lymph # (Auto) 1.35 (1.2-3.4) K/uL [place] # (Auto) 0.65 H (0.11-0.59) K/uL Eos # (Auto) 0.12 (0-0.5) K/uL Baso # (Auto) 0.02 (0-0.2) K/uL PT Cancelled INR Cancelled APTT Cancelled PTT Ratio Cancelled D-Dimer Cancelled Cancelled Sodium (136-145) mmol/L Potassium (3.5-5.1) mmol/L Chloride (98-107) mmol/L Carbon Dioxide (21-32) mmol/L Anion Gap (3-11) BUN (7-18) mg/dl Creatinine (0.6-1.4) mg/dl Est Cr Clr Drug Dosing Est GFR ( Amer) Est GFR (Non-Af Amer) BUN/Creatinine Ratio (10-20) Glucose (70-99) mg/dl Calcium (8.5-10.1) mg/dl Troponin I (0-0.045) ng/ml Lipase (73-393) U/L 10/29/18 10/29/18 10/29/18 Range/Units 12:15 13:09 13:09 WBC (4.8-10.8) K/uL RBC (4.7-6.1) M/uL Hgb (14.0-18.0) g/dL Hct (42-52) % MCV (80-100) fL MCH (25-34) pg MCHC (32-36) g/dL RDW Std Deviation (36.4-46.3) fL RDW Coeff of Allie (11.5-14.5) % Plt Count (130-400) K/uL MPV (7.4-10.4) fL Immature Gran % (Auto) % Neut % (Auto) % Lymph % (Auto) % [place] % (Auto) % Eos % (Auto) % Baso % (Auto) % Immature Gran # (Auto) (0.00-0.02) K/uL Neut # (Auto) (1.4-6.5) K/uL Lymph # (Auto) (1.2-3.4) K/uL [place] # (Auto) (0.11-0.59) K/uL Eos # (Auto) (0-0.5) K/uL Baso # (Auto) (0-0.2) K/uL PT 12.1 H INR 1.2 H APTT 31.0 PTT Ratio 1.1 D-Dimer 2520 H* Sodium 136 (136-145) mmol/L Potassium 4.0 (3.5-5.1) mmol/L Chloride 103 (98-107) mmol/L Carbon Dioxide 27 (21-32) mmol/L Anion Gap 6.0 (3-11) BUN 23 H (7-18) mg/dl Creatinine 1.57 H (0.6-1.4) mg/dl Est Cr Clr Drug Dosing Not Reportable Est GFR ( Amer) 45.9 Est GFR (Non-Af Amer) 39.6 BUN/Creatinine Ratio 14.4 (10-20) Glucose 206 H (70-99) mg/dl Calcium 9.2 (8.5-10.1) mg/dl Troponin I < 0.015 (0-0.045) ng/ml Lipase 364 (73-393) U/L Imaging Data Radiologist's Impression: Radiology results as stated below per my review and the radiologist's interpretation: CT angio chest PE protocol CT DOSE: 502.42 mGy.cm HISTORY: Chest pain. Dyspnea. ro PE TECHNIQUE: Multiaxial CT images of the chest were performed following the intravenous administration of contrast to evaluate the pulmonary arteries. Maxi mal intensity projection images were also obtained. A dose lowering technique was utilized adhering to the principles of ALARA. COMPARISON STUDY: 06/02/2012 FINDINGS: Diffuse parenchymal fibrosis considered chronic. Pulmonary vasculature enhances appropriately. No evidence for filling defect or pulmonary embolus. Mediastinal adenopathy is unaltered. Heart is moderately enlarged and stable. Upper abdomen demonstrates stable bilateral renal cysts. There is a component of fatty infiltration of the liver. IMPRESSION: 1. No evidence for pulmonary embolus. 2. Diffuse parenchymal fibrotic change/chronic interstitial change considered unaltered. The above report was generated using voice recognition software. It may contain grammatical, syntax or spelling errors. Electronically signed by: Dion Samson M.D. 10/29/2018 2:15 PM XR chest 1V portable CLINICAL HISTORY: 87 years-old Male presenting with Chest Pain. TECHNIQUE: Portable upright AP view of the chest was obtained. COMPARISON: 08/02/2018. FINDINGS: Atherosclerosis of the aortic arch. Cardiac silhouette enlarged. Diffusely coarsened lung markings. Elevation of the left hemidiaphragm as on prior exam. Interstitial lung markings are prominent as on prior exam. No new focal opacity. No large effusion or pneumothorax. Osseous structures grossly normal. Persistent gaseous distention of colon beneath the left hemidiaphragm. IMPRESSION: 1. Cardiomegaly with mild congestive change. No deanna pulmonary edema. Findings are similar to prior. Electronically signed by: Miguel Hennessy M.D. 10/29/2018 12:54 PM ECG Data Attestation: I personally reviewed and interpreted this ECG as follows: Indication: chest pain Rate (beats per minute): 76 Rhythm: sinus rhythm Findings: + other (MO and QTC intervals are WNL. QRS of 140. ) Blood Pressure Blood Pressure Findings: Elevated blood pressure Blood Pressure Disposition: Referred to patients primary care provider MDM Narrative Vital signs are stable. Labs and imaging are within normal limits. The patient will be admitted for a chest pain work up to rule out ACS. I spoke to Dr. Rodriguez - [facility] Hospitalist about the patient's case. He is going to accept the patient for further evaluation. Impression & Plan Chest pain Discharge Plan Visit Data Chief Complaint: Cardiac Assessment Stated Complaint: HEART PROBLEMS PRIOR STENTS CHEST PAIN ED Provider: Alcides Amin Discharge Problem: Chest pain Patient Disposition: Being Evaluated by Hospitalist Forms Stand Alone Forms: My [facility] Prescriptions Prescriptions: No Action aspirin [Adult Aspirin Regimen] 81 mg tablet,delayed release (DR/EC) 81 mg PO QAM RF: 0 pantoprazole 40 mg tablet,delayed release (DR/EC) 40 mg PO QAM RF: 0 carvedilol 25 mg tablet 25 mg PO BID RF: 0 valsartan 160 mg tablet 160 mg PO BID Qty: 180 RF: 1 metformin 1,000 mg tablet 1,000 mg PO BID Qty: 180 RF: 2 blood sugar diagnostic 1 ea MS TID RF: 0 glimepiride 4 mg tablet 4 mg PO BID RF: 0 clopidogrel 75 mg Tablet 75 mg PO QAM Qty: 30 RF: 0 clonidine HCl 0.1 mg Tablet 0.1 mg PO UD PRN (Reason: Blood Pressure) RF: 0 atorvastatin 80 mg Tablet 80 mg PO HS RF: 0 cholecalciferol (vitamin D3) [Vitamin D3] 1,000 unit Capsule 1,000 unit PO DAILY RF: 0 Referrals Referrals: Miguel Olivares MD [Primary Care Provider] - Discharge Problem: Chest pain Qualifiers: Chest pain type: unspecified Qualified Code(s): R07.9 - Chest pain, unspecified The scribe's documentation has been prepared under my direction and personally reviewed by me in its entirety. I confirm that the note above accurately r eflects all work, treatment, procedures, and medical decision making performed by me.
[2018-10-29] MEDS ORDERED: ONDANSETRON INJ 2 MG/ML 2 ML VIAL IV PRN (18:49)
[2018-10-29] MEDS ORDERED: MAGNESIUM HYDROXIDE SUSP 30 ML UDC PO PRN (18:49)
[2018-10-29] MEDS ORDERED: ACETAMINOPHEN 325 MG TAB PO PRN (18:49)
[2018-10-29] MEDS ORDERED: MoRPHine SULFATE 2 MG/ML CARP IV PRN (18:49)
[2018-10-29] MEDS ORDERED: NITROGLYCERIN SL 0.4 MG/TAB TAB SL PRN (18:49)
[2018-10-29] MEDS ORDERED: cloNIDine HCL 0.1 MG TAB PO PRN (18:49)
[2018-10-29] MEDS ORDERED: POLYETHYLENE (MIRALAX) 17 GM PACK PO PRN (18:49)
[2018-10-29] MEDS ORDERED: ALUMINUM/MAGNESIUM SUSP 30 ML UDC PO PRN (18:49)
[2018-10-29] MEDS ORDERED: SODIUM CHLORIDE 0.45 % 1,000 ML IV SCH (20:15)
[2018-10-29] MEDS: SODIUM CHLORIDE 0.9% 1000ML 1,000 ML IV SCH ×2 (20:18→21:36)
--- NOTE | 2018-10-29 20:24 | History & Physical Report ---
Date of Service October 29, 2018 Assessment & Plan (1) Chest pain: Chest pain certainly sounds cardiac, given that is substernal and exertional in nature. What is reassuring is that he is symptom-free now, his EKG is nonacute, and his troponin is negative. The main question would be if it is hypertensive induced, given that each time that he is checked his blood pressure whenever he is having pain he is about 180/100, but is also possible that the discomfort in distress led to the spike in blood pressure. Given that the alternate concern would be if he has distal small vessel disease (not noted in cath report, but will ask cardiology to review cath from June) and that he is having small vessel angina and the discomfort from the angina is leading to the rise in blood pressure. -Either way given that he is not having STEMI, and based on what I can see from the cath report from June he does not have any other potential culprit large vessel lesions, I strongly suspect the approach will be med management changes. Will ask cardiology for input, and check an echocardiogram, given that med changes may be slightly different if we come to the conclusion that there is a small vessel disease versus hypertensive induced. For now since he is pain-free I will watch him on his home regimen, given that he seems to have a degree of erratic control to his blood pressure. (2) Coronary artery disease: See above. Repeat troponin. (3) CKD (chronic kidney disease), stage III: ER check CT chest given his symptoms and elevated d-dimer. Gentle IV fluids, he was given a liter bolus in the ER, and then repeat BMP in the morning. (4) Type 2 diabetes mellitus: His last A1c was 8.6 in February. However, he is a somewhat frail 87-year-old, so more than likely control for him should be somewhat loose, although hopefully preferably slightly tighter than that. Continue his home meds repeat A1c. (5) Hypertension: See above. Is not clear if he has erratic control, or if the chest discomfort was causing a spike in his blood pressure. We will follow him on his home regimen for now. Follow his vitals. Certainly common things being common one major reason for erratic control would be if he is forgetting medications, we will pursue this further as his course progresses. (6) DVT prophylaxis: Lovenox. History of Present Illness Chief Complaint: Chest pain Primary Care Provider: Miguel Olivares MD Patient is a very pleasant 87-year-old male known to me from prior admissions, he notes that he was in his usual state of health until a few days ago whenever he started noticing worsening chest pain. Mostly it has been exertional, he notes it starts from his epigastric area and goes up substernal, at times there seems to even be a little bit of a jaw component. Seems to come on mostly with exertion, although generally even with fairly minimal exertion. Goes away with rest to a degree, but more than that he notes that whenever he had the discomfort he is checked his blood pressure and found to be somewhere on the order of 180/100, and then he has as needed clonidine and after he takes the clonidine his chest pain goes away. The longest total for one episode was a little bit difficult to discern, but seems to have been no more than 1 hour, and his timeframe on this was a little bit unreliable given that he was not watching the clock. He does not remember what it felt like whenever the balloon was inflated in his coronaries in June when he was stented. He denies shortness of breath whenever he is having the chest pain. He is currently pain-free. Allergies Allergy/AdvReac Type Severity Reaction Status Date / Time No Known Allergies Allergy Verified 09/11/18 10:14 Home Medications Home Medications Medication Instructions Recorded Confirmed Type aspirin 81 mg tablet,delayed 81 mg PO QAM 03/12/18 10/29/18 History release pantoprazole 40 mg tablet,delayed 40 mg PO QAM 03/12/18 10/29/18 History release clonidine HCl 0.1 mg PO UD PRN 04/25/18 10/29/18 History glimepiride 4 mg PO BID 07/02/18 10/29/18 History clopidogrel 75 mg PO QAM #30 tab 07/04/18 10/29/18 Rx atorvastatin 80 mg PO HS 08/02/18 10/29/18 History cholecalciferol (vitamin D3) 1,000 unit PO DAILY 08/02/18 10/29/18 History [Vitamin D3] carvedilol 25 mg tablet 25 mg PO BID 08/25/18 10/29/18 History metformin 1,000 mg tablet 1,000 mg PO BID #180 tab 08/25/18 10/29/18 Rx blood sugar diagnostic 1 ea MS TID 09/11/18 10/29/18 History valsartan 160 mg tablet 160 mg PO BID #180 tab 10/21/18 10/29/18 Rx Past Med/Surg History Medical History Actinic keratosis Atrial premature complex BMI 29.0-29.9,adult Benign localized prostatic hyperplasia with lower urinary tract symptoms (LUTS) CKD (chronic kidney disease), stage III Chews tobacco regularly Constipation Diabetic nephropathy Diabetic peripheral neuropathy Dieulafoy lesion of stomach Erythematous papules of skin Gastritis Hiatal hernia History of SCC (squamous cell carcinoma) of skin Hypertension Post-void dribbling SI joint arthritis Type 2 diabetes mellitus Unilateral primary osteoarthritis, left hip Urinary hesitancy Visual impairment Vitamin D deficiency Diabetes mellitus (Chronic) Chest pain (Resolved 10/27/13) Helicobacter pylori ab+ (Resolved 10/27/13) Chest pain (Resolved) H. 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 HEENT normocephalic atraumatic mucous membranes moist. Cardio is regular without rubs murmurs or gallops. Breathing unlabored no accessory muscle use good effort, no rales rhonchi or wheezes good effort. Skin shows no rashes no pallor or icterus. Abdomen soft nondistended nontender no masses or organomegaly. Extremities show no cyanosis clubbing or edema. No calf tenderness. Neuro shows cranial nerves II through XII be grossly intact gross motor and sensory intact. No focal neuro deficits. Mental status shows good recent and remote recall normal mood and affect good judgment and insight. Results & Data Vital Signs (Past 12 Hours) Vital Signs Temp Pulse Resp BP Pulse Ox 10/29/18 18:27 72 16 118/69 98 10/29/18 18:25 72 16 118/69 98 10/29/18 16:31 72 17 119/69 97 10/29/18 16:01 66 17 121/70 97 10/29/18 15:31 67 16 101/65 98 10/29/18 15:01 65 18 115/55 L 96 10/29/18 13:31 71 21 118/71 98 10/29/18 13:01 75 18 124/70 97 10/29/18 12:31 76 20 127/72 98 10/29/18 12:15 77 20 99 10/29/18 11:55 97.5 F L 77 20 162/87 H 99 Code Status & VTE Plan VTE Prophylaxis Plan VTE Prophylaxis will be ordered: Yes PG Care Time/CCT Total # of Minutes Spent Total Time Spent with Patient: Total time spent is greater than 50% in coordi nation of care (as documented) at patient's floor/unit and/or counseling patient: (1) Chest pain Chest pain type: unspecified Qualified Code(s): R07.9 - Chest pain, unspecified (2) Coronary artery disease Coronary Disease-Associated Artery/Lesion type: [place] artery [place] vs. transplanted heart: [place] heart Associated angina: without angina Qualified Code(s): I25.10 - Atherosclerotic heart disease of [place] coronary artery without angina pectoris (3) Type 2 diabetes mellitus Diabetes mellitus mcc insulin use: without mcc use Diabetes mellitus complication status: with kidney complications Diabetes mellitus complication detail: with chronic kidney disease Chronic kidney disease stage: stage 3 (moderate) Qualified Code(s): E11.22 - Type 2 diabetes mellitus with diabetic chronic kidney disease; N18.3 - Chronic kidney disease, stage 3 (moderate) (4) Hypertension Hypertension type: essential hypertension Qualified Code(s): I10 - Essential (primary) hypertension
[2018-10-29] MEDS ORDERED: BLOOD SUGAR DIAGNOSTIC MS SCH (21:00)
[2018-10-29] MEDS: GLIMEPIRIDE 2 MG TAB PO SCH (22:35)
[2018-10-29] MEDS: METFORMIN HCL 500 MG TAB PO SCH (22:35)
[2018-10-29] MEDS: carvediloL 25 MG TAB PO SCH (22:35)
[2018-10-29] MEDS: VALSARTAN 80 MG TAB PO SCH (22:36)
[2018-10-29] MEDS: ATORVASTATIN 40 MG TAB PO SCH (22:36)
[2018-10-29] MEDS: ENOXAPARIN INJ 30 MG/0.3 ML SYR SQ SCH (22:37)
[2018-10-30] MEDS: SODIUM CHLORIDE 0.9% 1000ML 1,000 ML IV SCH (05:07)
[2018-10-30 07:29] LABS: BUN Creatinine Ratio 13.9 (10-20); Est GFR (African American) 44.9; Est GFR (Non-African American) 38.7; Potassium 3.9 mmol/L (3.5-5.1)
[2018-10-30] MEDS: CLOPIDOGREL BISULFATE 75 MG TAB PO SCH (07:58)
[2018-10-30] MEDS: GLIMEPIRIDE 2 MG TAB PO SCH ×2 (07:59→22:41)
[2018-10-30] MEDS: CHOLECALCIFEROL 1,000 UNITS TAB PO SCH (07:59)
[2018-10-30] MEDS: ASPIRIN 81 MG ECTAB PO SCH (07:59)
[2018-10-30] MEDS: PANTOprazole 40 MG TAB PO SCH (07:59)
[2018-10-30] MEDS: VALSARTAN 80 MG TAB PO SCH ×2 (07:59→22:42)
[2018-10-30] MEDS: carvediloL 25 MG TAB PO SCH ×2 (08:00→22:42)
[2018-10-30 08:58] LABS: Estimated Average Glucose 160 mg/dl; Hemoglobin A1C 7.2 % (4.5-5.6)
[2018-10-30] MEDS: METFORMIN HCL 500 MG TAB PO SCH (10:18)
--- NOTE | 2018-10-30 12:00 | Cardiology Consultation ---
Date of Consultation October 30, 2018 History of Present Illness Attending Physician: MD Erica Presented with chest pain, described as pressure starting in his stomach and going up from there. He was pulling nails out of a board at this time. Blood pressure was elevated to 180 at home when this occurred. He took 2 clonidine after the pain started and after an hour he retook his pressure and noticed Left lower jaw pain over the last 2-3 week. Timing is over several hours. Associated nausea this morning. Allergies Allergy/AdvReac Type Severity Reaction Status Date / Time No Known Allergies Allergy Verified 09/11/18 10:14 Home Medications Home Medications Medication Instructions Recorded Confirmed Type aspirin 81 mg tablet,delayed 81 mg PO QAM 03/12/18 10/29/18 History release pantoprazole 40 mg tablet,delayed 40 mg PO QAM 03/12/18 10/29/18 History release clonidine HCl 0.1 mg PO UD PRN 04/25/18 10/29/18 History glimepiride 4 mg PO BID 07/02/18 10/29/18 History clopidogrel 75 mg PO QAM #30 tab 07/04/18 10/29/18 Rx atorvastatin 80 mg PO HS 08/02/18 10/29/18 History cholecalciferol (vitamin D3) 1,000 unit PO DAILY 08/02/18 10/29/18 History [Vitamin D3] carvedilol 25 mg tablet 25 mg PO BID 08/25/18 10/29/18 History metformin 1,000 mg tablet 1,000 mg PO BID #180 tab 08/25/18 10/29/18 Rx blood sugar diagnostic 1 ea MS TID 09/11/18 10/29/18 History valsartan 160 mg tablet 160 mg PO BID #180 tab 10/21/18 10/29/18 Rx Patient History Medical History Actinic keratosis Atrial premature complex BMI 29.0-29.9,adult Benign localized prostatic hyperplasia with lower urinary tract symptoms (LUTS) CKD (chronic kidney disease), stage III Chews tobacco regularly Constipation Diabetic nephropathy Diabetic peripheral neuropathy Dieulafoy lesion of stomach Erythematous papules of skin Gastritis Hiatal hernia History of SCC (squamous cell carcinoma) of skin Hypertension Post-void dribbling SI joint arthritis Type 2 diabetes mellitus Unilateral primary osteoarthritis, left hip Urinary hesitancy Visual impairment Vitamin D deficiency Diabetes mellitus (Chronic) Chest pain (Resolved 10/27/13) Helicobacter pylori ab+ (Resolved 10/27/13) Chest pain (Resolved) H. pylori infection (Resolved) Dizziness (Resolved) Depression (Chronic) GERD (gastroesophageal reflux disease) (Chronic) Abdominal gas pain (Chronic) Arm pain, left (Resolved) Cardiac enzymes elevated (Resolved) Hypertension (Chronic) Hypokalemia (Resolved) Poorly-controlled hypertension (Chronic) Anaplasmosis Surgical History History of appendectomy (Resolved) Family History Unknown Diabetes Coronary heart disease Other Family history non-contributory Social History Preferred Language: Telugu Communication Ability: Effective Generalist Required: No Beliefs That Will Affect Care: None Current Living Situation: Spouse Other Information That Helps Us Care for You: No Feels Safe at Home: Yes Safety Concerns: Feels Safe At This Time Smoking Status: Never smoker Tobacco Type: smokeless tobacco ; Do You Dip or Chew Tobacco: Yes ; Second Hand Exposure: No ; Tobacco Cessation Education Requested by Patient: No Hx Alcohol Use: No Hx Substance Use: No Results & Data Vital Signs (Past 12 Hours) Vital Signs Temp Pulse Resp BP Pulse Ox 10/30/18 07:57 37.1 C 99 H 16 151/70 H 99 10/30/18 04:01 36.3 C L 71 99/57 L 96 10/30/18 00:23 36.6 C 63 16 119/55 L 98
--- NOTE | 2018-10-30 12:35 | Cardiology Consultation ---
Date of Consultation October 30, 2018 Assessment & Plan (1) Chest pain: Patient's symptoms of chest pain have typical and atypical features. Unfortunately, it is very difficult to pin him down on some of the characteristics of his symptoms. He is known to have coronary disease. He states that some of the symptoms were exertional although has difficulty quantifying that statement. Did not have any objective evidence of ischemia. It is likely that some of the symptoms are fairly prolonged in nature without elevation is biomarkers. However, again the patient had some difficulty telling me how long the symptoms would last. It is very possible that this represents some kind of gastrointestinal disturbance. He is known to have a hiatal hernia. He all of his symptoms started in the abdomen and then generalized elsewhere. He continues to feel poorly due without any objective evidence of ischemia. Given his difficulty and characterizing his symptoms and his known coronary disease would seem reasonable to perform some evaluation. Suggested a dobutamine echocardiogram which we can get this afternoon. (2) Coronary artery disease: History of LAD stent. This was in the setting of an abnormal stress test. At the time of his presentation is symptoms are very atypical and likely not related to his coronary disease. I believe this was found incidentally. He has been maintained on a good outpatient regimen which consists of dual anti- platelet therapy, high-dose atorvastatin, beta-blockade and an ARB. History of Present Illness Reason for Consultation: Chest pain Requesting Physician: Julio César Attending Physician: Andrea Angela, History of Present Illness Patient is an 87-year-old gentleman with a history of coronary disease having previously undergone percutaneous intervention to the LAD. Patient has been complaining several days worth of abdominal and epigastric discomfort. It seems that approximately 3 days ago he began to experience a fullness in his abdomen which later generalized to include the precordium and substernal area. He had some associated nausea. He states that the symptoms often arise with activity, but then had some difficulty qualifying the activity in which it would occur. It seems that he was able to carry a compressor approximately 50 yards during this time frame without inducing the symptoms. The actual duration of the symptoms was also in question. He was unclear as to whether these episodes lasted for hours or minutes or more extended periods. Yesterday began to have worsening symptoms and also had some discomfort in his jaw. He states that this symptom is still present. He was admitted in June of this year with very atypical symptoms. At that time he was discovered to have an LAD lesion based primarily on an abnormal stress test. He cannot recall the symptoms associated with that admission. Currently he claims to be feeling poorly. Again, he has difficulty characterizing that statement. He seems to have an element of fatigue and [place]. He continues to have the left-sided jaw pain. Allergies Allergy/AdvReac Type Severity Reaction Status Date / Time No Known Allergies Allergy Verified 09/11/18 10:14 Home Medications Home Medications Medication Instructions Recorded Confirmed Type aspirin 81 mg tablet,delayed 81 mg PO QAM 03/12/18 10/29/18 History release pantoprazole 40 mg tablet,delayed 40 mg PO QAM 03/12/18 10/29/18 History release clonidine HCl 0.1 mg PO UD PRN 04/25/18 10/29/18 History glimepiride 4 mg PO BID 07/02/18 10/29/18 History clopidogrel 75 mg PO QAM #30 tab 07/04/18 10/29/18 Rx atorvastatin 80 mg PO HS 08/02/18 10/29/18 History cholecalciferol (vitamin D3) 1,000 unit PO DAILY 08/02/18 10/29/18 History [Vitamin D3] carvedilol 25 mg tablet 25 mg PO BID 08/25/18 10/29/18 History metformin 1,000 mg tablet 1,000 mg PO BID #180 tab 08/25/18 10/29/18 Rx blood sugar diagnostic 1 ea MS TID 09/11/18 10/29/18 History valsartan 160 mg tablet 160 mg PO BID #180 tab 10/21/18 10/29/18 Rx Patient History Medical History Actinic keratosis Atrial premature complex BMI 29.0-29.9,adult Benign localized prostatic hyperplasia with lower urinary tract symptoms (LUTS) CKD (chronic kidney disease), stage III Chews tobacco regularly Constipation Diabetic nephropathy Diabetic peripheral neuropathy Dieulafoy lesion of stomach Erythematous papules of skin Gastritis Hiatal hernia History of SCC (squamous cell carcinoma) of skin Hypertension Post-void dribbling SI joint arthritis Type 2 diabetes mellitus Unilateral primary osteoarthritis, left hip Urinary hesitancy Visual impairment Vitamin D deficiency Diabetes mellitus (Chronic) Chest pain (Resolved 10/27/13) Helicobacter pylori ab+ (Resolved 10/27/13) Chest pain (Resolved) H. pylori infection (Resolved) Dizziness (Resolved) Depression (Chronic) GERD (gastroesophageal reflux disease) (Chronic) Abdominal gas pain (Chronic) Arm pain, left (Resolved) Cardiac enzymes elevated (Resolved) Hypertension (Chronic) Hypokalemia (Resolved) Poorly-controlled hypertension (Chronic) Anaplasmosis Surgical History History of appendectomy (Resolved) Family History Unknown Diabetes Coronary heart disease Other Family history non-contributory Social History Preferred Language: Macanese Communication Ability: Effective Research Staff Member Required: No Beliefs That Will Affect Care: None Current Living Situation: Spouse Other Information That Helps Us Care for You: No Feels Safe at Home: Yes Safety Concerns: Feels Safe At This Time Smoking Status: Never smoker Tobacco Type: smokeless tobacco ; Do You Dip or Chew Tobacco: Yes ; Second Hand Exposure: No ; Tobacco Cessation Education Requested by Patient: No Hx Alcohol Use: No Hx Substance Use: No Review of Systems Review of Systems: All systems reviewed & are unremarkable except as noted in HPI & below Physical Exam Physical Exam: The patient is alert and oriented. Mood and affect appeared normal. He answered all questions appropriately. HEENT: Pupils are equal and reactive to light and accommodation. Extraocular movements are intact. The sclerae are anicteric. Neuro: Cranial nerves intact Neck: Patient's neck is supple. He has palpable carotid pulses bilaterally without bruits on auscultation. There is no evidence of jugular venous distention. The thyroid is not enlarged. Lungs: Clear to auscultation bilaterally. He has good air movement without use of accessory muscles. No rales wheezes or rhonchi. Cardiac: Heart demonstrates a regular rate and rhythm. Normal S1 and S2. No murmurs on examination. Pulses: The patient has palpable radial pulses bilaterally that are equal in intensity Extremities: There was no evidence of hypoperfusion. There is no cyanosis or clubbing. There is no edema. Skin: I did not appreciate any rashes on examination today. Results & Data Vital Signs (Past 12 Hours) Vital Signs Temp Pulse Resp BP Pulse Ox 10/30/18 12:16 36.6 C 69 18 146/73 H 98 10/30/18 07:57 37.1 C 99 H 16 151/70 H 99 10/30/18 04:01 36.3 C L 71 99/57 L 96 Laboratory Results Abnormal Lab Results 10/29/18 10/29/18 10/29/18 12:15 12:15 13:09 PT Cancelled INR Cancelled APTT Cancelled PTT Ratio Cancelled D-Dimer Cancelled Sodium 136 Potassium 4.0 Chloride 103 Carbon Dioxide 27 Anion Gap 6.0 BUN 23 H Creatinine 1.57 H Est Cr Clr Drug Dosing Not Reportable Est GFR ( Amer) 45.9 Est GFR (Non-Af Amer) 39.6 BUN/Creatinine Ratio 14.4 Glucose 206 H POC Glucose Estimat Average Glucose Hemoglobin A1c Calcium 9.2 Troponin I < 0.015 Lipase 364 10/29/18 10/29/18 10/29/18 13:09 20:49 22:55 PT 12.1 H INR 1.2 H APTT 31.0 PTT Ratio 1.1 D-Dimer 2520 H* Sodium Potassium Chloride Carbon Dioxide Anion Gap BUN Creatinine Est Cr Clr Drug Dosing Est GFR ( Amer) Est GFR (Non-Af Amer) BUN/Creatinine Ratio Glucose POC Glucose 174 H Estimat Average Glucose Hemoglobin A1c Calcium Troponin I < 0.015 Lipase 10/30/18 10/30/18 10/30/18 06:30 06:30 07:06 PT INR APTT PTT Ratio D-Dimer Sodium 142 Potassium 3.9 Chloride 107 Carbon Dioxide 27 Anion Gap 7.0 BUN 22 H Creatinine 1.60 H Est Cr Clr Drug Dosing 36.0 Est GFR ( Amer) 44.9 Est GFR (Non-Af Amer) 38.7 BUN/Creatinine Ratio 13.9 Glucose 104 H POC Glucose 100 H Estimat Average Glucose 160 Hemoglobin A1c 7.2 H Calcium 9.0 Troponin I Lipase 10/30/18 11:40 PT INR APTT PTT Ratio D-Dimer Sodium Potassium Chloride Carbon Dioxide Anion Gap BUN Creatinine Est Cr Clr Drug Dosing Est GFR ( Amer) Est GFR (Non-Af Amer) BUN/Creatinine Ratio Glucose POC Glucose 166 H Estimat Average Glucose Hemoglobin A1c Calcium Troponin I Lipase Diagnostic Findings Chest x-ray was obtained at the time of admission is suggests an element of pulmonary vascular congestion Chest CTA did not reveal any acute pulmonary embolus or other significant finding ECG Additional Comments: 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 Essentially unchanged from prior PG Care Time/CCT Total # of Minutes Spent Total Time Spent with Patient: Total time spent is greater than 50% in coordination of care (as documented) at patient's floor/unit and/or counseling patient: (1) Chest pain Chest pain type: unspecified Qualified Code(s): R07.9 - Chest pain, unspecified (2) Coronary artery disease Coronary Disease-Associated Artery/Lesion type: [place] artery [place] vs. transplanted heart: [place] heart Associated angina: without angina Qualified Code(s): I25.10 - Atherosclerotic heart disease of [place] coronary artery without angina pectoris
[2018-10-30] MEDS ORDERED: METOPROLOL TARTRATE 1 MG/ML VIAL IV ONE (12:57)
[2018-10-30] MEDS ORDERED: ATROPINE SULFATE 0.1 MG/ML 10ML SYR IV ONE (12:57)
[2018-10-30] MEDS ORDERED: DOBUTamine HCL 12.5 MG/ML 20 ML VIAL IV ONE (12:57)
[2018-10-30] MEDS ORDERED: NITROGLYCERIN SL 0.4 MG/TAB TAB ONE (13:37)
[2018-10-30] MEDS ORDERED: HEPARIN (PORCINE) 1000 UNIT/ML 10 ML (CATH LAB USE ONLY) ONE ×2 (13:54→15:56)
[2018-10-30] MEDS ORDERED: NiCARDipine HCL INJ 2.5 MG/ML 10 ML AMP ONE (13:54)
[2018-10-30] MEDS ORDERED: fentaNYL citrate 100 MCG/2 ML VIAL ONE (13:55)
[2018-10-30] MEDS ORDERED: MIDAZOLAM HCL 1 MG/ML 2ML VIAL ONE (13:55)
[2018-10-30] MEDS ORDERED: NITROGLYCERIN/D5W 100MCG/ML 20ML SYR ONE (13:56)
--- NOTE | 2018-10-30 14:16 | Pre Anesthesia Assessment ---
Date of Service October 30, 2018 Pre Sedation Assessment Vital Signs Temp Pulse Pulse Resp BP BP Pulse Ox 10/30/18 12:16 36.6 C 69 18 146/73 H 98 10/30/18 07:57 37.1 C 99 H 16 151/70 H 99 10/30/18 04:01 36.3 C L 71 99/57 L 96 10/30/18 00:23 36.6 C 63 16 119/55 L 98 10/29/18 23:28 68 10/29/18 18:49 36.3 C L 16 127/71 100 10/29/18 18:27 72 16 118/69 98 10/29/18 18:25 72 16 118/69 98 10/29/18 16:31 72 17 119/69 97 10/29/18 16:01 66 17 121/70 97 10/29/18 15:31 67 16 101/65 98 10/29/18 15:01 65 18 115/55 L 96 Pulse Ox 10/30/18 12:16 10/30/18 07:57 10/30/18 04:01 10/30/18 00:23 10/29/18 23:28 10/29/18 18:49 100 10/29/18 18:27 10/29/18 18:25 10/29/18 16:31 10/29/18 16:01 10/29/18 15:31 10/29/18 15:01 Cardiovascular + regular rate Respiratory + respiratory effort normal Pre-Sedation Airway Assessment Smoking Status: Never smoker Hx Sleep Apnea: No Hx Difficult Intubation: No Short, Thick Neck: No Thyromental Distance: > or= 3.5 Finger Breadths Oral Cavity: + WNL Mallampati Class: III ASA: ASA3 Procedure Planning Contraindications for Sedation: none Current Medications Reviewed: Yes Notes The planned sedation has been discussed with the patient. Informed Consent was obtained. I have identified the patient, determined the appropriateness of sedation and have assessed the patient immediately prior to the procedure. All medicine(s) and interventions are by my order.
--- NOTE | 2018-10-30 15:25 | Cardiac Catheterization ---
[facility] Data: Engine Hostler Cardiac Status Clinical evaluation leading to the procedure CAD Presenation: Positive Stress Test Diagnostic Physicians Name: Jose Maldonado MD Closure Device Recommendations: Management Recommendatons Cardiac Cath Procedure Full Procedure Date October 30, 2018 Pre-Procedure Diagnosis Pre-Procedure Diagnosis: Positive Stress Test AUC Score AUC Score: 8 Post-Procedure Diagnosis Post-Procedure Diagnosis: Severe CAD Procedure(s) Performed Procedure(s) Performed: Coronary Angiography and Left Heart Cath Environmental Protection Inspector Jose Maldonado MD Machine Cleaner(s) none Estimated Blood Loss Estimated Blood Loss: 10cc Medication(s) Medication(s): Fentanyl, Heparin, Nicardipine, Nitroglycerin and Versed Summary of Findings Procedure performed: Left heart catheterization, coronary angiography Staff bicycle inspector: Jose Maldonado MD Indication: The patient is an 87-year-old gentleman with a history of coronary artery disease having previously undergone implantation of a LAD stent in June 2018. He presented with more diffuse symptoms and underwent dobutamine echocardiography which did reveal inducible wall motion abnormalities. Procedure in detail: The patient was informed of the risks benefits and alternatives to the intended procedure, he understood such and wished to proceed. He was taken to the cardiac catheterization suite in a fasting state. Conscious sedation was administered per protocol and the patient was monitored electrocardiographically throughout today's procedure. The right wrist area was prepped and draped in usual sterile fashion. This area was anesthetized using subcutaneous administration of a lidocaine solution. The right radial artery was then accessed using Seldinger technique, and a arterial sheath was placed at this site over a guidewire. The sheath was used to facilitate passage of the cardiac catheter for coronary angiography and left heart catheterization. Coronary angiogram was then obtained in multiple orthogonal views prior to removal of the catheter. At the conclusion of the procedure the sheath was removed and hemostasis was achieved at the access site using manual pressure. The patient tolerated procedure well, there were no immediate complications. Equipment used: 5 Japanese [place] 4.0, 5 Japanese AL 3 Findings: Left main coronary artery was normal in size and caliber, it bifurcated normally into the left anterior descending and left circumflex arteries Left anterior descending: Left anterior descending was a large transapical vessel. It had an irregular stenosis in its proximal portion just distal to its takeoff from the left main coronary artery. Estimated at 50 to 60%. It gave off a large first diagonal branch with a 99% stenosis in its ostium there were patent stents in its midportion without evidence of in-stent restenosis. There was a discrete 70% lesion distal to the stents in the mid to distal LAD. The distal LAD gave off collaterals to an occluded diagonal branch which filled in a retrograde fashion. Left circumflex artery: Left circumflex artery was a nondominant vessel. He had a 50% stenosis in its proximal portion after the takeoff of the left main. It produced several obtuse marginal branches without discrete stenoses. Right coronary: The right coronary was a large patulous vessel with EULOGIO II flow throughout its course. There there was proximally 70% stenosis in the ostial portion of the PDA. There were several PL branches. The first PL branch had a 70% stenosis in its proximal portion. There is a 50% stenosis in the ongoing vessel with 50% stenosis in the distal posterior lateral branch. Impression: Patent stents in the mid LAD Obstructive coronary disease involving the distal right coronary artery Branch vessel disease involving the first diagonal branch Distal LAD disease Proximal LAD disease of unclear severity Plan: Invasive evaluation of the proximal LAD Hemodynamics Rest Ao:: 77/49 mmHg Final Ao: 102/50 mmHg LV: 100/0mmHg Recommendations Recommendations: Management Recommendatons Specimens Specimens: None Radiation Exposure (mGy) q Contrast (mls) y Procedural Complication(s) None Disposition PCU
[2018-10-30] MEDS ORDERED: CLOPIDOGREL BISULFATE 300 MG TAB ONE (16:19)
--- NOTE | 2018-10-30 16:31 | Post Anesthesia Assessment ---
Date of Service October 30, 2018 Post Sedation Assessment Vital Signs Temp Pulse Pulse Resp BP BP Pulse Ox 10/30/18 12:16 97.9 F 69 18 146/73 H 98 10/30/18 07:57 98.8 F 99 H 16 151/70 H 99 10/30/18 04:01 97.3 F L 71 99/57 L 96 10/30/18 00:23 97.9 F 63 16 119/55 L 98 10/29/18 23:28 68 10/29/18 18:49 97.3 F L 16 127/71 100 10/29/18 18:27 72 16 118/69 98 10/29/18 18:25 72 16 118/69 98 10/29/18 16:31 72 17 119/69 97 Pulse Ox 10/30/18 12:16 10/30/18 07:57 10/30/18 04:01 10/30/18 00:23 10/29/18 23:28 10/29/18 18:49 100 10/29/18 18:27 10/29/18 18:25 10/29/18 16:31 Recovery Score Activity: Moves 4 extremities Respiration: Deep Breath/Cough Circulation: +/-20% PreAnes Value Consciousness: Fully Awake Oxygen Saturation: O2 needed for >90% Discharge Sedation Level of Care: Fast Track Phase II Post Sedation Plan On clinical assessment, the patient appears to have tolerated the sedation without complications. Patient is recovering as anticipated. Patient will continue to be monitored by nursing and may be discharged when sedation discharge criteria are met per below protocol. Upon Completions of procedure and additional 15 minutes continue every 5 minute vital signs and the P.A.R. score; then discharge to a Phase I or Fast Track to Phase II per the following guidelines: * Discharge Patient to appropriate Phase II area if PAR is 8 or greater or return to pre- procedure baseline. The post - procedure orders will be as directed. * If PAR score is less than 8 or not return to pre-procedure baseline then patient will follow Phase I monitoring till PAR is reached for Phase II. The Phase I may be done in procedure room or may call to secure a Phase I area. * If naloxone or flumazenil are used for reversal, hold in Phase I for continued monitoring from when last reversal dose was given for a minimum of 60 minutes or longer pending the nurse and/or physician discretion of patient condition before discharge to Phase II. Please call the Sedation Physician to re-evaluate and complete post-note for discharge to Phase II area. Do NOT discharge from procedure sedation or Phase 1 until post- sedation evaluation note is complete by procedure /sedation MD Sedation Discharge Instructions to be given to the patient at discharge to home.
--- NOTE | 2018-10-30 16:34 | Cardiac Catheterization ---
[facility] Data: Smoking Tobacco Packing Machine Hand Cardiac Status Clinical evaluation leading to the procedure CAD Presenation: Positive Stress Test Anginal Classification: CCS III Heart Failure: No Cardiogenic Shock within 24 Hours: No Cardiac Arrest within 24 Hours: No Imaging Studies Past 6 Months: Yes Stress Studies Past 6 Months: Yes Stress Echocardiogram: Yes - Positive and Risk/Extent of Ischemia (Intermediate) Diagnostic Physicians Name: Jose Pruitt MD Status: Elective Closure Device Percutaneous Entry Location: Radial Closure Device: Radial Band Recommendations: PCI without planned CABG PCI Indication: + Stress Test Lesion Segment Name: Ostial PDA Culprit Artery: Yes Stenosis Prior to Rx (%): 75 Chronic Total Occlusion: No IVUS: No FFR: No Pre-Procedure EULOGIO Flow: 3 Previously Treated Lesion: No Lesion Length (mm): 12 Thrombus Present: No Bifurcation Lesion: Yes Guidewire Across Lesion: Stenosis Post-Procedure (%): 0 Post-Procedure EULOGIO Flow: 3 Devices(s) Deployed: Yes Yes Intraprocedure Events Significant Disection: No Perforation: No Cardiac Cath Procedure Full Procedure Date October 30, 2018 Pre-Procedure Diagnosis Pre-Procedure Diagnosis: Positive Stress Test AUC Score AUC Score: 8 Post-Procedure Diagnosis Post-Procedure Diagnosis: Severe CAD and Successful PCI Procedure(s) Performed Procedure(s) Performed: Coronary Angiography and Drug Eluting Stent Administrative Services Manager Jose Pruitt MD Datapower Consultant(s) none Estimated Blood Loss Estimated Blood Loss: 10 Medication(s) Medication(s): Clopidogrel, Fentanyl, Heparin, Nicardipine, Nitroglycerin and Versed Summary of Findings Indication: Abnormal stress test, unstable angina Access: 6 Fr right radial artery Catheters: EBU 3.5 guide, AR-1 guide Findings: For full details of patient's coronary angiography please cath report dictated by Dr. Maldonado. Briefly, patient found to have intermediate ostial LAD disease and severe ostial right PDA disease. Decision to further assess ostial LAD and possibly stent right PDA. IVUS of ostial LAD Left main cannulated with EBU 3.5 guide BMW wire placed into distal LAD [place] IVUS catheter placed in the mid LADproximal to mid LAD stents widely patent, ostial/proximal LAD heavily calcified minimal CSA 5.7 mm, minimal ostial left main CSA 6.9 mm. Catheter/wire removed. Post procedure angiography revealed no apparent complications. -- PCI -- Antithrombotic therapy: Heparin, clopidogrel Procedure: RCA cannulated with AR-1 guide and guide liner BMW wire passed across lesion into distal vessel Right PDA lesion predilated with 2.0 compliant balloon Dilated lesion stented with 2.5 x 18 mm [place] drug-eluting stent Stent post-dilated with stent balloon IC vasodilators administered for spasm Post procedure EULOGIO 3 flow, stent well expanded with minimal residual stenosis and no apparent cardiac complications. Arterial Closure: TR band Summary: 1. Moderate, calcified distal left main (MLA 6.9 mm), ostial LAD disease (MLA 5.7 mm). 2. Successful PCI of ostial PDA with single drug-eluting stent (2.5 x 18 mm [place]). Recommendations: To PCU for continued monitoring Reloaded with clopidogrel 300 mg in labeling strategist Continue dual-antiplatelet therapy for at least one year post prior stents Continue statin, and ASCVD risk factor modification Consult cardiac Rehab Hemodynamics Rest Ao:: 117/51/82 Final Ao: 101/43/61 LV: Recommendations Recommendations: PCI without planned CABG Specimens Specimens: None Radiation Exposure (mGy) 5319 Contrast (mls) 175 Fluids (cc crystalloids) Fluids (cc crystalloids): 415 Drains Drains: None Anesthesia Moderate Procedural Complication(s) None Disposition PCU
[2018-10-30] MEDS ORDERED: SODIUM CHLORIDE 0.9% 1000ML 1,000 ML IV SCH (17:30)
--- NOTE | 2018-10-30 18:41 | Hospitalist Progress Note ---
Date of Service October 30, 2018 Assessment & Plan (1) Chest pain: After discussion with cardiology, there was more potential RCA disease that I was able to glean from the cath report in June. Stress testing was undertaken and was concerning, he was taken to cath, stented. Doing well. Ho pefully home tomorrow. Follow blood pressures, but continue current meds for now. (2) Coronary artery disease: See above. Med management and secondary risk reduction. (3) CKD (chronic kidney disease), stage III: Creatinine has been stable. Follow-up in the morning yet again given the dye load from the cath. (4) Type 2 diabetes mellitus: His last A1c was 7.2, which is more than adequate control for his age and risk. Continue his home meds (hold metformin for now) (5) Hypertension: It become more clear that the angina was likely causing sympathetic surge causing a spike in blood pressure. His pressures have been reasonable, continue current meds and follow. (6) DVT prophylaxis: Lovenox. Subjective Cardiology input appreciated. He is now status post cath at the time that I see him. He has no chest pain, no new complaints whatsoever. Generally he is feeling well. Review of Systems Review of Systems: All systems reviewed & are unremarkable except as noted in HPI & below Physical Exam Physical Exam: General he is awake and alert pleasant no distress. HEENT normal cephalic atraumatic mucous members moist. He has pressure band on his right wrist. Breathing unlabored no accessory muscle use good effort. Skin shows no rashes no pallor or icterus. Neuro shows no focal deficits. Results & Data Vital Signs (Past 12 Hours) Vital Signs Temp Pulse Resp BP BP Pulse Ox 10/30/18 18:32 73 18 109/65 97 10/30/18 18:02 73 18 110/58 L 97 10/30/18 17:47 67 18 110/60 97 10/30/18 17:32 74 18 108/61 97 10/30/18 17:17 72 18 118/69 97 10/30/18 17:00 81 18 130/72 130/72 97 10/30/18 12:16 97.9 F 69 18 146/73 H 98 10/30/18 07:57 98.8 F 99 H 16 151/70 H 99 PG Care Time/CCT Total # of Minutes Spent Total Time Spent with Patient: Total time spent is greater than 50% in coordination of care (as documented) at patient's floor/unit and/or counseling patient: (1) Chest pain Chest pain type: unspecified Qualified Code(s): R07.9 - Chest pain, unspecified (2) Coronary artery disease Coronary Disease-Associated Artery/Lesion type: koi artery [place] vs. transplanted heart: koi heart Associated angina: without angina Qualified Code(s): I25.10 - Atherosclerotic heart disease of koi coronary artery without angina pectoris (3) Type 2 diabetes mellitus Diabetes mellitus manager long term care insulin use: without care home use Diabetes mellitus complication status: with kidney complications Diabetes mellitus complication detail: with chronic kidney disease Chronic kidney disease stage: stage 3 (moderate) Qualified Code(s): E11.22 - Type 2 diabetes mellitus with diabetic chronic kidney disease; N18.3 - Chronic kidney disease, stage 3 (moderate) (4) Hypertension Hypertension type: essential hypertension Qualified Code(s): I10 - Essential (primary) hypertension
[2018-10-30] MEDS: ENOXAPARIN INJ 30 MG/0.3 ML SYR SQ SCH (22:41)
[2018-10-30] MEDS: ATORVASTATIN 40 MG TAB PO SCH (22:41)
[2018-10-31] MEDS: GLIMEPIRIDE 2 MG TAB PO SCH (08:32)
[2018-10-31] MEDS: VALSARTAN 80 MG TAB PO SCH (08:32)
[2018-10-31] MEDS: carvediloL 25 MG TAB PO SCH (08:32)
[2018-10-31] MEDS: ASPIRIN 81 MG ECTAB PO SCH (08:32)
[2018-10-31] MEDS: CLOPIDOGREL BISULFATE 75 MG TAB PO SCH (08:32)
[2018-10-31] MEDS: PANTOprazole 40 MG TAB PO SCH (08:33)
[2018-10-31] MEDS: CHOLECALCIFEROL 1,000 UNITS TAB PO SCH (08:33)
--- NOTE | 2018-10-31 11:34 | Discharge Summary ---
Date of Service October 31, 2018 Admission HPI Per Admitting Provider Patient is a very pleasant 87-year-old male known to me from prior admissions, he notes that he was in his usual state of health until a few days ago whenever he started noticing worsening chest pain. Mostly it has been exertional, he notes it starts from his epigastric area and goes up substernal, at times there seems to even be a little bit of a jaw component. Seems to come on mostly with exertion, although generally even with fairly minimal exertion. Goes away with rest to a degree, but more than that he notes that whenever he had the discomfort he is checked his blood pressure and found to be somewhere on the order of 180/100, and then he has as needed clonidine and after he takes the clonidine his chest pain goes away. The longest total for one episode was a little bit difficult to discern, but seems to have been no more than 1 hour, and his timeframe on this was a little bit unreliable given that he was not watching the clock. He does not remember what it felt like whenever the balloon was inflated in his coronaries in June when he was stented. He denies shortness of breath whenever he is having the chest pain. He is currently pain-free. Admission Exam Per Admitting Provider In general he is awake alert oriented x3 pleasant no distress. HEENT normocephalic atraumatic mucous membranes moist. Cardio is regular without rubs murmurs or gallops. Breathing unlabored no accessory muscle use good effort, no rales rhonchi or wheezes good effort. Skin shows no rashes no pallor or icterus. Abdomen soft nondistended nontender no masses or organomegaly. Extremities show no cyanosis clubbing or edema. No calf tenderness. Neuro shows cranial nerves II through XII be grossly intact gross motor and sensory i ntact. No focal neuro deficits. Mental status shows good recent and remote recall normal mood and affect good judgment and insight. Principal Diagnosis CAD s/p PCI Discharge Exam General: A&Ox3. NAD. Cooperative. HEENT: Atraumatic, normocephalic. Pulm: CTAB A&P. -wheezes, -rales, -rhonchi. Symmetrical chest rise. No increase work of breathing. No respiratory distress. Cardiac: RRR, -mrg. Radial pulses intact and symmetrical. Abdominal: Nontender, nondistended, soft. BS present. Extremities: PT pulses intact and symmetrical bilaterally. Radial pulses intact and symmetrical bilaterally, no hematoma present at right radial access site. Discharge Data Allergies Allergy/AdvReac Type Severity Reaction Status Date / Time No Known Allergies Allergy Verified 09/11/18 10:14 Consultations 10/29/18 14:23 ED Decision to Admit Stat 10/29/18 20:14 Consult Cardiology Routine Procedures Performed Operation Date: 10/30/18 13:55 Actual Procedures s Cineradiography w/Routine Exam - Rl Maldonado MD p Cath, Left with Cors and Vent - Rl Maldonado MD s IVUS Coronary Single Vessel - Rl Pruitt MD p Drug Eluting Stent SGl Vessel - Rl Pruitt MD Ordered Studies 10/29/18 13:39 CT angio chest PE protocol Stat 10/30/18 13:55 CL Cath Imgs for PACS use only Routine Hospital Course (1) Chest pain: Cleveland Rodrigez is an 87-year-old male with past medical history of CAD s/p PCI 2 months prior to presentation, hypertension, chronic kidney disease, type 2 diabetes mellitus, and hypertension who presented to the hospital with stomach discomfort and jaw pain worsened with exertion suggestive of atypical for angina. Coronary artery disease Mr. Rodrigez presented with several days of worsening chest pain starting in the epigastric area traveling substernally and into his jaw. His symptoms are usually reduced with relatively minimal exertion. He has a history of coronary artery disease with 2X LOULOU placement to mid LAD on 07/03/2018. On admission he was found to have a blood pressure of 180/100 and required clonidine for pressure control which also improved his chest pain. On admission to the emergency department he was treated with a normal saline bolus and full-strength aspirin and admitted for further care. He had an KRISTINE as noted below, otherwise troponin and electrolytes were normal. EKG showed normal sinus rhythm without acute ST changes. Dobutamine stress echocardiographic showed abnormal neurologic cardiac movement indicative of cardiac ischemia. He underwent cardiac catheterization and was found to have patent proximal and mid LAD stents, and a clinically significant right PDA lesion. He underwent successful PCI of ostial PDA with a single drug-eluting stent. He did not have any recurrence of his symptoms catheterization. He was instructed to continue dual antiplatelet therapy for 1 year, to continue his statin and ASCVD risk factor modification, and to follow-up with cardiology as an outpatient. He was discharged with stable vital signs and overall feeling well. Hypertension On admission Mr. Rodrigez was hypertensive to 180/100 and had good blood pressure control with clonidine in addition to his normal medications. Following catheterization his pressures normalized and clonidine was discontinued. He was discharged normotensive to resume his prior to admission carvedilol 25 mg p.o. twice daily and valsartan 160 mg p.o. twice daily Type 2 diabetes mellitus Mr. Rodrigez has a history of type 2 diabetes mellitus controlled with metformin and glimepiride. Oral metformin was held during admission, glimepiride was continued and he had adequate glycemic control throughout admission. His last A1c was 7.2% which within age-appropriate goals. He was discharged to resume his his metformin after 48 hours. Chronic kidney disease with suspected prerenal azotemia Mr. Rodrigez experience a transient increase in his creatinine during admission. He had an increase in creatinine from baseline of approximately 1.3 to 1.6 on day of discharge. He was euvolemic with good fluid output at time of discharge. He refused BMP day of discharge. He was instructed to continue drinking plenty of fluids (60 ounces per day) and to have a follow-up BMP in 2-3 days. DVT prophylaxis DVT prophylaxis was maintained with enoxaparin 30 mg subcu daily. He showed no signs of DVT during admission. (2) CKD (chronic kidney disease), stage III: (3) Diabetes mellitus: (4) Hypertension: (5) Presence of stent in LAD coronary artery: Total Time Total Time Spent Total Time Spent (In Minutes): 30 Discharge Plan Discharge Items Patient Disposition: Home - Self-Care Reason For Visit: CHEST PAIN Discharge Diagnosis: Severe coronary artery disease s/P PCI Activity: Per Instructions section Non-emergency contact: Primary Care Provider and Comfort Advisor Call non-emergency contact if: you have any medication questions, your symptoms worsen, your pain is not controlled, your pain is worsening, your pain is unusual for you, your pain is concerning for you, you have a fever and your rectal temperature is above 100.4 Follow-up/Referrals: Miguel Olivares MD [Primary Care Provider] - 11/05/18 4:15 pm (Please, follow up with Dr. Miguel Olivares on November 05 at 4:15 pm. *If you need to change this appointment, call the office at [phone].) Makayla Arnold PA-C [Physician Melter Caster] - 11/02/18 9:15 am (Please, follow up at [facility] Cardiology Office with Makayla Arnold PA-C on FridayNovember 02 at 9:15 am. *[address] of [facility] ([facility] - next to this hospital. If you need to change this appointment, call the office at [phone].) Diet: Heart Healthy Addtl Attending Provider Instructions: You are seen in the hospital for stomach discomfort and jaw pain suggestive of a typical angina (cardiac pain). You had a stress echocardiogram which showed evidence of poor oxygen delivery to the heart (ischemia) and underwent cardiac catheterization with placement of one drug-eluting stent to the ostial PDA (coronary blood vessel). You recovered well following the procedure, and did not have recurrence of your initial symptoms while in the hospital. You are being discharged home. Please continue to take dual antiplatelet therapy with both aspirin and Plavix. You will need to be on this medication for at least one year. If he develop any signs or symptoms of bleeding including nosebleeds, easy bruising, large bruises, lightheadedness, dizziness, black bowel movements, or blood in your bowel movements please contact your primary care physician or seed packer. You have not been started on any new medications. Your metformin was held during admission. The dye used during cardiac catheterization may place additional stress on the kidney and your metformin has been held for 48 hours. Please resume metformin 48 hours after returning home. You otherwise may resume your normal home medications, detailed below. During admission you were noted to have an acute kidney injury. Your kidney numbers were stable at time of discharge, but will require follow-up lab work. A prescription has been provided to you for a basic metabolic panel (BMP). Please return to the lab for blood draw in 2-4 days to have this performed, and have the results forwarded to your primary care provider who will discuss the results with you. A follow-up appointment has been scheduled for you with your primary care doctor, Dr. Olivares, on 11/05/2018 at 4:15 PM. If you need to cancel or change his appointment please call his office at [phone]. A follow-up appointment has been scheduled for you with nephrology on 11/02/2018 at 9:15 AM. If you need to cancel her trans-appointment, please call their office at [phone]. A follow-up appointment is being scheduled for you with Dr. Edouard, cardiology. You should receive a call to confirm this appointment. If you do not receive a call, or need to cancel or change this appointment, please call their office at [phone]. Pending Studies at Discharge: Yes Studies:: Repeat BMP Stand-Alone Forms: [facility] Medications and DC Order Prescriptions: Continued aspirin [Adult Aspirin Regimen] 81 mg tablet,delayed release (DR/EC) 81 mg PO QAM RF: 0 pantoprazole 40 mg tablet,delayed release (DR/EC) 40 mg PO QAM RF: 0 carvedilol 25 mg tablet 25 mg PO BID RF: 0 valsartan 160 mg tablet 160 mg PO BID Qty: 180 RF: 1 metformin 1,000 mg tablet 1,000 mg PO BID Qty: 180 RF: 2 blood sugar diagnostic 1 ea MS TID RF: 0 glimepiride 4 mg tablet 4 mg PO BID RF: 0 clopidogrel 75 mg Tablet 75 mg PO QAM Qty: 30 RF: 0 clonidine HCl 0.1 mg Tablet 0.1 mg PO UD PRN (Reason: Blood Pressure) RF: 0 atorvastatin 80 mg Tablet 80 mg PO HS RF: 0 cholecalciferol (vitamin D3) [Vitamin D3] 1,000 unit Capsule 1,000 unit PO DAILY RF: 0 Discharge Orders: Discharge Order (Routine); Ordered 10/31/18 Ordered By: Miguel Jane Admission Data Admit Date/Time: 10/29/18 17:13 Attending Provider: Andrea Angela Admit Provider: Andrea Angela Primary Care Provider: Miguel Olivares Other Providers: Carolina Barron ; Hai Rhodes Jr Other Interventions: Discharge Summary Assessment (RN) Last Done: 10/31/18 09:52 DC Date/Time DO NOT enter until pt leaves facility: 10/31/18 11:27 Supervising Physician Co-Signing Physician Notes I personally examined the patient and verified all miguel points of history and exam, discussed case, and agree with decision making with Dr Jane. Feeling better, feels up to going home. No further chest pain Vitals noted, in general he is awake and alert pleasant no distress. HEENT normal cephalic atraumatic mucous membranes moist. Breathing unlabored no accessory muscle use good effort. Skin shows no rashes no pallor or icterus. Coronary artery disease with unstable anginanow improved status post cath and stenting. Stable for home. Continue current med management. Outpatient follow-up. Otherwise as above Resident Activity Tracking Resident Involvement: Resident Care Provided Care Provided: Adult Hospital Medicine
== END 2018-10-31 11:27 | disposition home or self-care (01) ==
LOC: 2S 11:54 → ED 11:54 → 2S 18:27

== ENCOUNTER 2020-01-08 10:26 | Observation (INO) ==
[2020-01-08] MEDS ORDERED: ONDANSETRON INJ 2 MG/ML 2 ML VIAL IV STA (10:45)
[2020-01-08] MEDS ORDERED: ACETAMINOPHEN 1,000 MG/100 ML VIAL IV STA (10:46)
[2020-01-08] MEDS: SODIUM CHLORIDE 0.9% 1000ML 1,000 ML IV SCH ×3 (11:23→20:21)
--- NOTE | 2020-01-08 11:24 | Emergency Department Note ---
History of Present Illness General Chief complaint: Vomiting Stated complaint: CAN'T KEEP FOOD DOWN,WEAK,COUGH Time Seen by Provider: 01/08/20 10:42 History of Present Illness Provider complaint: Vomiting and fever Onset (ago): day(s) 4 Associated symptoms: + cough, + fever/chills, + malaise and + nausea/vomiting; no confusion, no chest pain, no headaches and no shortness of breath 89-year-old male presents emergency department for nausea vomiting and fever. Patient reports his symptoms began 4 days ago. He states he cannot keep anything down. Patient denies any hematemesis, bilious vomiting, coffee-ground emesis. He denies any hematochezia or melena. No dysuria or hematuria. Patient reports mild cough. No loss of taste or smell. He does report fevers for last 3 days. No difficulty breathing or chest pain. Home Medications Medication Instructions Recorded Confirmed Type aspirin 81 mg tablet,delayed 81 mg PO QAM 03/12/18 01/08/20 History release clonidine HCl 0.1 mg tablet 0.1 mg PO DAILY PRN tab 11/04/18 01/08/20 History pantoprazole 40 mg tablet,delayed 40 mg PO BID #180 tab 02/24/19 01/08/20 Rx release clopidogrel 75 mg tablet 75 mg PO QAM #90 tab 04/22/19 01/08/20 Rx carvedilol 25 mg tablet 25 mg PO BID #180 tab 05/06/19 01/08/20 Rx metformin 1,000 mg tablet 1,000 mg PO BID #180 tab 05/17/19 01/08/20 Rx atorvastatin 80 mg tablet 80 mg PO HS #90 tab 06/21/19 01/08/20 Rx glimepiride 4 mg tablet 4 mg PO BID #180 tab 08/04/19 01/08/20 Rx sitagliptin [Januvia] 25 mg PO HS 01/08/20 01/08/20 History valsartan 160 mg PO BID 01/08/20 01/08/20 History Allergies Allergy/AdvReac Type Severity Reaction Status Date / Time No Known Drug Allergies Allergy Verified 01/08/20 13:09 Past Med/Surg History Medical History Abdominal gas pain Actinic keratosis Altered mental status Anaplasmosis Arm pain, left Atrial premature complex Benign localized prostatic hyperplasia with lower urinary tract symptoms (LUTS) BMI 29.0-29.9,adult Cardiac enzymes elevated Chest pain Chews tobacco regularly CKD (chronic kidney disease), stage III Constipation Depression Diabetes mellitus Diabetic nephropathy Diabetic peripheral neuropathy Dieulafoy lesion of stomach Dizziness Erythematous papules of skin Gastritis GERD (gastroesophageal reflux disease) H. pylori infection Helicobacter pylori ab+ (10/27/13) Hiatal hernia History of SCC (squamous cell carcinoma) of skin Hypertension Hypokalemia Poorly-controlled hypertension Post-void dribbling Rhabdomyolysis SI joint arthritis Trochanteric bursitis Type 2 diabetes mellitus Unilateral primary osteoarthritis, left hip Urinary hesitancy Visual impairment Vitamin D deficiency Surgical History History of appendectomy History of colonoscopy History of transurethral resection of prostate Family History Unknown Diabetes Coronary heart disease Father Prostate cancer Other Family history non-contributory Social History Smoking Status: Never smoker Second Hand Exposure: No; Hx Alcohol Use: No Hx Substance Use: Yes Preferred Language: Mongolian Communication Ability: Effective Hearing Ability: Use of Hearing Aid 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 Beliefs That Will Affect Care: None marital status: Current Living Situation: Spouse current occupational status: retired Feels Safe at Home: Yes Dental Care, Regularly: No Physical Activity Frequency: Daily Seatbelt Use: always Sunscreen Use: No Assistive Devices: Glasses Review of Systems A total of 10 systems reviewed and were otherwise negative Physical Exam Vital Signs Vital Signs - 24 hr 01/08/20 10:36 01/08/20 11:00 01/08/20 11:08 Temperature 38.0 C H Temperature Source Oral Pulse Rate 95 H 95 H Pulse Rate from SpO2 Sensor 94 H Respiratory Rate 20 Respiratory Effort / Characteristics Non-Labored Spontaneous Respiratory Depth Normal Blood Pressure 122/73 115/66 Blood Pressure Mean 89 82 Blood Pressure Position Sitting Pulse Oximetry 96 97 96 Oxygen Delivery Method Room Air Room Air Room Air Sepsis Recent Fever Within 48 Hours No Sepsis New/Unexplained Change in Mental Status N/A Sepsis Action Taken by Nursing No Action Required 01/08/20 11:10 01/08/20 11:20 01/08/20 11:30 Temperature Temperature Source Pulse Rate 94 H 96 H 96 H Pulse Rate from SpO2 Sensor 94 H 96 H 96 H Respiratory Rate 21 Respiratory Effort / Characteristics Respiratory Depth Blood Pressure 115/67 Blood Pressure Mean 76 Blood Pressure Position Pulse Oximetry 96 95 90 Oxygen Delivery Method Room Air Room Air Room Air Sepsis Recent Fever Within 48 Hours Sepsis New/Unexplained Change in Mental Status Sepsis Action Taken by Nursing 01/08/20 11:31 01/08/20 11:40 01/08/20 11:50 Temperature Temperature Source Pulse Rate 92 H 95 H 94 H Pulse Rate from SpO2 Sensor 91 H 95 H 95 H Respiratory Rate 21 Respiratory Effort / Characteristics Respiratory Depth Blood Pressure Blood Pressure Mean Blood Pressure Position Pulse Oximetry 95 96 95 Oxygen Delivery Method Room Air Sepsis Recent Fever Within 48 Hours Sepsis New/Unexplained Change in Mental Status Sepsis Action Taken by Nursing 01/08/20 12:00 01/08/20 12:01 01/08/20 12:10 Temperature Temperature Source Pulse Rate 92 H 91 H 93 H Pulse Rate from SpO2 Sensor 92 H 91 H 91 H Respiratory Rate Respiratory Effort / Characteristics Respiratory Depth Blood Pressure 105/60 Blood Pressure Mean 74 Blood Pressure Position Pulse Oximetry 96 96 95 Oxygen Delivery Method Sepsis Recent Fever Within 48 Hours Sepsis New/Unexplained Change in Mental Status Sepsis Action Taken by Nursing 01/08/20 12:20 01/08/20 12:30 01/08/20 12:31 Temperature Temperature Source Pulse Rate 92 H 93 H 90 Pulse Rate from SpO2 Sensor 93 H 93 H 91 H Respiratory Rate 24 27 H 29 H Respiratory Effort / Characteristics Respiratory Depth Blood Pressure 97/58 L Blood Pressure Mean 69 Blood Pressure Position Pulse Oximetry 93 94 95 Oxygen Delivery Method Sepsis Recent Fever Within 48 Hours Sepsis New/Unexplained Change in Mental Status Sepsis Action Taken by Nursing 01/08/20 12:40 01/08/20 12:50 01/08/20 13:00 Temperature Temperature Source Pulse Rate 91 H 81 95 H Pulse Rate from SpO2 Sensor 91 H 89 94 H Respiratory Rate 24 Respiratory Effort / Characteristics Respiratory Depth Blood Pressure 102/65 Blood Pressure Mean 78 Blood Pressure Position Pulse Oximetry 95 92 94 Oxygen Delivery Method Sepsis Recent Fever Within 48 Hours Sepsis New/Unexplained Change in Mental Status Sepsis Action Taken by Nursing 01/08/20 13:01 01/08/20 13:10 Temperature Temperature Source Pulse Rate 92 H 87 Pulse Rate from SpO2 Sensor 103 H 87 Respiratory Rate 20 26 H Respiratory Effort / Characteristics Respiratory Depth Blood Pressure Blood Pressure Mean Blood Pressure Position Pulse Oximetry 93 95 Oxygen Delivery Method Sepsis Recent Fever Within 48 Hours Sepsis New/Unexplained Change in Mental Status Sepsis Action Taken by Nursing Physical Exam GENERAL: He is oriented to person, place, and time. He appears well-developed and well-nourished. He does not appear distressed. HENT: Exam performed. - Head: Normocephalic and atraumatic. - Right Ear: External ear normal. No mastoid tenderness. - Left Ear: External ear normal. No mastoid tenderness. - Mouth/Throat: The oropharynx is clear and moist. No trismus in the jaw. No dental abscesses or uvula swelling. No oropharyngeal exudate or tonsillar abscesses. EYES: Conjunctivae and EOM are normal. Pupils are equal, round, and reactive to light. Right eye exhibits no discharge. Left eye exhibits no discharge. No scleral icterus. NECK: Normal range of motion. Neck supple. No JVD present. No spinous process tenderness present. No carotid bruit present. No rigidity. No tracheal deviation and normal range of motion present. No Brudzinski's sign and no Kernig's sign noted. CV: Normal rate, regular rhythm, normal heart sounds and intact distal pulses. There is no peripheral edema. Palpable radial pulses bue. PULM/CHEST: Diminished breath sounds bilaterally. - Chest Wall: He exhibits no tenderness. ABD: The abdomen is soft. Bowel sounds are normal. He has no distension. No mass is present. There is no tenderness. There is no rebound, no guarding, no Grove's sign and no tenderness at McBurney's point. Rovsig negative. MUSC/SKEL: Normal range of motion. There is no peripheral edema, tenderness or deformity. LYMPH: No cervical adenopathy. NEURO: He is alert and oriented to person, place, and time. He has normal strength. No cranial nerve deficit or sensory deficit. Coordination and gait normal. GCS eye subscore is 4. GCS verbal subscore is 5. GCS motor subscore is 6. Cerebellar tests wnl. SKIN: Skin is warm and dry. He is not diaphoretic. PSYCH: He has a normal mood and affect. Behavior is normal. Judgment and thought content normal. Course Course 1042: The patient was evaluated in room B8. A complete history and physical exam was performed. Patient was seen in full airborne precautions. Patient was seen in N95's, gloves, gowns, face shield by myself and staff. Cardiac monitoring: An order was placed for continuous cardiac monitoring. The monitor shows a rate of 80 with sinus rhythm 1245: Vital signs stable. Patient continues to have nausea. Labs show magnesium of 1.4. Leukopenia with white blood cell count of 3.21. Thrombocytopenia with platelet count of 96. Creatinine at baseline of 1.59. Patient is COVID-19 positive. Chest x-ray does show what appears to be groundglass opacities to me. Magnesium will start to be replaced in the emergency department. Patient will be [facility] Dr. Coyle has been notified. Administered Medications Sodium Chloride (Nss 1000ml) 1,000 mls @ 125 mls/hr IV .Q8H DERICK Stop: 02/07/20 10:44 Last Admin: 01/08/20 11:23 Dose: 125 mls/hr Documented by: [id number] Magnesium Sulfate/Dextrose (Magnesium Sulfate / D5w) 1 gm in 100 mls @ 100 mls/hr IV Q1H DERICK Stop: 01/08/20 14:37 Last Admin: 01/08/20 13:35 Dose: 100 mls/hr Documented by: [id number] Discontinued Medications Acetaminophen (Ofirmev) 1,000 mg in 100 mls @ 400 mls/hr IV NOW STA Stop: 01/08/20 11:00 Last Infusion: 01/08/20 11:50 Dose: 0 mls/hr Documented by: [id number] Admin: 01/08/20 11:23 Dose: 400 mls/hr Documented by: [id number] Ondansetron HCl (Ondansetron Inj 2 Mg/Ml 2 Ml Vial) 4 mg IV NOW STA Stop: 01/08/20 10:46 Last Admin: 01/08/20 11:23 Dose: 4 mg Documented by: [id number] Medical Decision Making Laboratory Data Result diagrams: 01/08/20 Unknown 01/08/20 Unknown Lab Results 01/08/20 01/08/20 01/08/20 Range/Units 10:43 10:43 12:32 WBC (4.8-10.8) K/uL RBC (4.7-6.1) M/uL Hgb (14.0-18.0) g/dL Hct (42-52) % MCV (80-100) fL MCH (25-34) pg MCHC (32-36) g/dL RDW Std Deviation (36.4-46.3) fL RDW Coeff of Allie (11.5-14.5) % Plt Count (130-400) K/uL MPV (7.4-10.4) fL Immature Gran % (Auto) % Neut % (Auto) % Lymph % (Auto) % Patrick % (Auto) % Eos % (Auto) % Baso % (Auto) % Neut # (Auto) (1.4-6.5) K/uL Lymph # (Auto) (1.2-3.4) K/uL Patrick # (Auto) (0.11-0.59) K/uL Eos # (Auto) (0-0.5) K/uL Baso # (Auto) (0-0.2) K/uL Immature Gran # (Auto) (0.00-0.02) K/uL Platelet Estimate (Normal) RBC Morphology PT (9.0-12.0) Seconds INR (0.9-1.1) APTT (21.0-31.0) Seconds PTT Ratio Sodium (136-145) mmol/L Potassium (3.5-5.1) mmol/L Chloride (98-107) mmol/L Carbon Dioxide (21-32) mmol/L Anion Gap (3-11) BUN (7-18) mg/dl Creatinine (0.6-1.4) mg/dl Est Cr Clr Drug Dosing ml/min Est GFR ( Amer) Est GFR (Non-Af Amer) BUN/Creatinine Ratio (10-20) Glucose (70-99) mg/dl Lactate 2.2 H* (0.4-2.0) mmol/L Calcium (8.5-10.1) mg/dl Magnesium (1.8-2.4) mg/dl Total Bilirubin (0.2-1) mg/dl AST (15-37) U/L ALT (12-78) U/L Alkaline Phosphatase (45-117) U/L Troponin I (0-0.045) ng/ml Total Protein (6.4-8.2) gm/dl Albumin (3.4-5.0) gm/dl Globulin (2.5-4.0) gm/dl Albumin/Globulin Ratio (0.9-2) Procalcitonin (0-0.5) ng/ml COVID-19 Eval [email or web address] SARS-[facility]-2, RNA, NAAT POSITIVE A* (NEGATIVE) 01/08/20 01/08/20 01/08/20 Range/Units Unknown Unknown Unknown WBC 3.21 L (4.8-10.8) K/uL RBC 4.17 L (4.7-6.1) M/uL Hgb 13.5 L (14.0-18.0) g/dL Hct 39.8 L (42-52) % MCV 95.4 (80-100) fL MCH 32.4 (25-34) pg MCHC 33.9 (32-36) g/dL RDW Std Deviation 48.8 H (36.4-46.3) fL RDW Coeff of Allie 14.0 (11.5-14.5) % Plt Count 96 L (130-400) K/uL MPV 10.2 (7.4-10.4) fL Immature Gran % (Auto) 0.3 % Neut % (Auto) 62.4 % Lymph % (Auto) 19.3 % Patrick % (Auto) 17.1 % Eos % (Auto) 0.6 % Baso % (Auto) 0.3 % Neut # (Auto) 2.00 (1.4-6.5) K/uL Lymph # (Auto) 0.62 L (1.2-3.4) K/uL Patrick # (Auto) 0.55 (0.11-0.59) K/uL Eos # (Auto) 0.02 (0-0.5) K/uL Baso # (Auto) 0.01 (0-0.2) K/uL Immature Gran # (Auto) 0.01 (0.00-0.02) K/uL Platelet Estimate Decreased L (Normal) RBC Morphology Unremarkable PT 11.3 (9.0-12.0) Seconds INR 1.1 (0.9-1.1) APTT 37.3 H (21.0-31.0) Seconds PTT Ratio 1.3 Sodium (136-145) mmol/L Potassium (3.5-5.1) mmol/L Chloride (98-107) mmol/L Carbon Dioxide (21-32) mmol/L Anion Gap (3-11) BUN (7-18) mg/dl Creatinine (0.6-1.4) mg/dl Est Cr Clr Drug Dosing ml/min Est GFR ( Amer) Est GFR (Non-Af Amer) BUN/Creatinine Ratio (10-20) Glucose (70-99) mg/dl Lactate (0.4-2.0) mmol/L Calcium (8.5-10.1) mg/dl Magnesium (1.8-2.4) mg/dl Total Bilirubin (0.2-1) mg/dl AST (15-37) U/L ALT (12-78) U/L Alkaline Phosphatase (45-117) U/L Troponin I (0-0.045) ng/ml Total Protein (6.4-8.2) gm/dl Albumin (3.4-5.0) gm/dl Globulin (2.5-4.0) gm/dl Albumin/Globulin Ratio (0.9-2) Procalcitonin 0.05 (0-0.5) ng/ml COVID-19 Eval Order SARS-CoV-2, RNA, NAAT (NEGATIVE) 01/08/20 Range/Units Unknown WBC (4.8-10.8) K/uL RBC (4.7-6.1) M/uL Hgb (14.0-18.0) g/dL Hct (42-52) % MCV (80-100) fL MCH (25-34) pg MCHC (32-36) g/dL RDW Std Deviation (36.4-46.3) fL RDW Coeff of Allie (11.5-14.5) % Plt Count (130-400) K/uL MPV (7.4-10.4) fL Immature Gran % (Auto) % Neut % (Auto) % Lymph % (Auto) % Patrick % (Auto) % Eos % (Auto) % Baso % (Auto) % Neut # (Auto) (1.4-6.5) K/uL Lymph # (Auto) (1.2-3.4) K/uL Patrick # (Auto) (0.11-0.59) K/uL Eos # (Auto) (0-0.5) K/uL Baso # (Auto) (0-0.2) K/uL Immature Gran # (Auto) (0.00-0.02) K/uL Platelet Estimate (Normal) RBC Morphology PT (9.0-12.0) Seconds INR (0.9-1.1) APTT (21.0-31.0) Seconds PTT Ratio Sodium 134 L (136-145) mmol/L Potassium 4.6 (3.5-5.1) mmol/L Chloride 104 (98-107) mmol/L Carbon Dioxide 26 (21-32) mmol/L Anion Gap 4.0 (3-11) BUN 24 H (7-18) mg/dl Creatinine 1.59 H (0.6-1.4) mg/dl Est Cr Clr Drug Dosing 34.9 ml/min Est GFR ( Amer) 44.6 Est GFR (Non-Af Amer) 38.5 BUN/Creatinine Ratio 15.3 (10-20) Glucose 166 H (70-99) mg/dl Lactate (0.4-2.0) mmol/L Calcium 8.7 (8.5-10.1) mg/dl Magnesium 1.4 L (1.8-2.4) mg/dl Total Bilirubin 0.7 (0.2-1) mg/dl AST 34 (15-37) U/L ALT 24 (12-78) U/L Alkaline Phosphatase 81 (45-117) U/L Troponin I 0.023 (0-0.045) ng/ml Total Protein 7.8 (6.4-8.2) gm/dl Albumin 3.5 (3.4-5.0) gm/dl Globulin 4.3 H (2.5-4.0) gm/dl Albumin/Globulin Ratio 0.8 L (0.9-2) Procalcitonin (0-0.5) ng/ml COVID-19 Eval Order SARS-CoV-2, RNA, NAAT (NEGATIVE) Imaging Data Radiologist's Impression: XR chest 1V portable HISTORY: 89 years-old Male SEPSIS acute sepsis COMPARISON: Chest radiograph 10/08/2019 TECHNIQUE: Portable AP view of the chest FINDINGS: Cardiac silhouette is upper limits of normal in size. Mild chronic interstitial coarsening. There are new ill-defined opacities of the lateral left midlung and lung bases. No pneumothorax or large pleural effusion. Unchanged left hemidiaphragm elevation. Degenerative changes of the shoulders and spine. IMPRESSION: Interstitial opacities of the lateral left midlung with minimal bibasilar densities are suspicious for a nonspecific infectious or inflammatory pneumonitis. ACT 112: Negative or not required by law. The above report was generated using voice recognition software. It may contain grammatical, syntax or spelling errors. Electronically signed by: Bishnu Shankar M.D. 01/08/2020 12:06 PM Dictated: 01/08/20 1204Transcribed: 01/08/20 1204 ECG Data Additional Comments: EKG shows sinus rhythm with rate of 95. AK interval 166 QRS interval [address] elevation or ST depression. bifascicular block present. [facility] Narrative 1042: The patient was evaluated in room B8. A complete history and physical exam was performed. Patient was seen in full airborne precautions. Patient was seen in N95's, gloves, gowns, face shield by myself and staff. Cardiac monitoring: An order was placed for continuous cardiac monitoring. The monitor shows a rate of 80 with sinus rhythm 1245: Vital signs stable. Patient continues to have nausea. Labs show magnesium of 1.4. Leukopenia with white blood cell count of 3.21. Thrombocytopenia with platelet count of 96. Creatinine at baseline of 1.59. Patient is COVID-19 positive. Chest x-ray does show what appears to be groundglass opacities to me. Magnesium will start to be replaced in the emergency department. Patient will be [facility] Dr. Coyle has been notified. Impression & Plan 2019 novel coronavirus–infected pneumonia (NCIP)#8211;infected pneumonia (NCIP), Hypomagnesemia Discharge Plan Visit Data Chief Complaint: Vomiting Stated Complaint: CAN'T KEEP FOOD DOWN,WEAK,COUGH ED Provider: Alcides Amin Discharge Problem: 2019 novel coronavirus–infected pneumonia (NCIP)#8211;infected pneumonia (NCIP), Hypomagnesemia Patient Disposition: Admitted As Inpatient Forms Stand Alone Forms: My [facility] Prescriptions Prescriptions: No Action aspirin [Adult Aspirin Regimen] 81 mg tablet,delayed release (DR/EC) 81 mg PO QAM RF: 0 clopidogrel 75 mg tablet 75 mg PO QAM Qty: 90 RF: 3 carvedilol 25 mg tablet 25 mg PO BID Qty: 180 RF: 3 metformin 1,000 mg tablet 1,000 mg PO BID Qty: 180 RF: 3 atorvastatin 80 mg tablet 80 mg PO HS Qty: 90 RF: 3 glimepiride 4 mg tablet 4 mg PO BID Qty: 180 RF: 3 pantoprazole 40 mg tablet,delayed release (DR/EC) 40 mg PO BID Qty: 180 RF: 3 valsartan 160 mg tablet 160 mg PO BID RF: 0 Januvia 25 mg tablet 25 mg PO HS RF: 0 clonidine HCl 0.1 mg tablet 0.1 mg PO DAILY PRN (Reason: Blood Pressure) RF: 0 Referrals Referrals: Miguel Olivares MD [Primary Care Provider] -
[2020-01-08 12:02] LABS: INR 1.1 (0.9-1.1); Partial Thromboplastin Ratio 1.3; Partial Thromboplastin Time 37.3 Seconds (21.0-31.0); Prothrombin Time 11.3 Seconds (9.0-12.0)
--- NOTE | 2020-01-08 12:07 | XRay Report ---
XR chest 1V portable HISTORY: 89 years-old Male SEPSIS acute sepsis COMPARISON: Chest radiograph 10/08/2019 TECHNIQUE: Portable AP view of the chest FINDINGS: Cardiac silhouette is upper limits of normal in size. Mild chronic interstitial coarsening. There are new ill-defined opacities of the lateral left midlung and lung bases. No pneumothorax or large pleur al effusion. Unchanged left hemidiaphragm elevation. Degenerative changes of the shoulders and spine. IMPRESSION: Interstitial opacities of the lateral left midlung with minimal bibasilar densities are s uspicious for a nonspecific infectious or inflammatory pneumonitis. ACT 112: Negative or not required by law. The above report was generated using voice recognition software. It may contain grammatical, syntax o r spelling errors. Electronically signed by: Bishnu Shankar M.D. 01/08/2020 12:06 PM
[2020-01-08 12:14] LABS: Albumin Level 3.5 gm/dl (3.4-5.0); BUN Creatinine Ratio 15.3 (10-20); Calcium 8.7 mg/dl (8.5-10.1); Creatinine Clr Calc Pharmacy 34.9 ml/min; Est GFR (African American) 44.6; Est GFR (Non-African American) 38.5; Hematocrit (blood only) 39.8 % (42-52); Hemoglobin 13.5 g/dL (14.0-18.0); Magnesium 1.4 mg/dl (1.8-2.4); Mean Corpuscular Hemoglobin 32.4 pg (25-34); Mean Corpuscular Hgb Conc 33.9 g/dL (32-36); Mean Corpuscular Volume 95.4 fL (80-100); Potassium 4.6 mmol/L (3.5-5.1); RDW Standard Deviation 48.8 fL (36.4-46.3); Red Blood Count 4.17 M/uL (4.7-6.1); White Blood Count 3.21 K/uL (4.8-10.8)
[2020-01-08 12:19] LABS: Albumin Globulin Ratio 0.8 (0.9-2); Bilirubin,Total 0.7 mg/dl (0.2-1); Globulin 4.3 gm/dl (2.5-4.0); Total Protein 7.8 gm/dl (6.4-8.2); Troponin I 0.023 ng/ml (0-0.045)
[2020-01-08 12:21] LABS: Mean Platelet Volume 10.2 fL (7.4-10.4); Platelet Count 96 K/uL (130-400)
[2020-01-08 12:22] LABS: Basophils # (auto) 0.01 K/uL (0-0.2); Basophils % (auto) 0.3 %; Eosinophils # (auto) 0.02 K/uL (0-0.5); Eosinophils % (auto) 0.6 %; Immature Granulocytes # (auto) 0.01 K/uL (0.00-0.02); Immature Granulocytes % (auto) 0.3 %; Lymphocytes # (auto) 0.62 K/uL (1.2-3.4); Lymphocytes % (auto) 19.3 %; Monocytes # (auto) 0.55 K/uL (0.11-0.59); Monocytes % (auto) 17.1 %; Neutrophils % (auto) 62.4 %; Platelet Estimate Decreased (Normal); RBC Morphology Unremarkable
[2020-01-08] MEDS: MAGNESIUM SULFATE / D5W 1 GM/100 ML BAG IV SCH ×2 (13:35→14:46)
--- NOTE | 2020-01-08 15:09 | History & Physical Report ---
Date of Service January 08, 2020 Assessment & Plan (1) COVID-19 virus infection: COVID 19 detected on 01/07 has a fever and main symptoms are gastrointestinal has subtle changes of pulmonary infiltrates in left lung on CXR but no dyspnea, no cough and no hypoxia no indication for dexamethasone will give NSS at 80cc/hr, repeat labs in AM Zofran and Phenergan PRN for nausea (2) Intractable nausea and vomiting: most likely due to COVID 19 Zofran and Phenergan PRN advance diet as tolerated (3) Hypomagnesemia: 1.4 in the ED, he was ordered 1gm IV will give additional 1gm IV mag sulfate, check level in the AM (4) Dehydration: poor oral intake for past week, mucous membranes dry, decreased turgor of skin completed NSS 125cc/hr x 1 bag then rune NSS at 80cc/hr reassess tomorrow (5) CKD (chronic kidney disease), stage III: Cr is close to baseline, does not appear to have KRISTINE hold Valsartan (6) Coronary artery disease: no chest pain, continue aspirin and Plavix and Coreg (7) Hypertension: hold Valsartan continue Coreg but reduce to 12.5mg BID for time being since BP low normal and clinically dry (8) Type 2 diabetes mellitus: hold Januvia, glimepiride and metformin Novolog SS History of Present Illness Chief Complaint: I can't eat Primary Care Provider: Miguel Olivares MD 89 yo male with one week of poor oral intake and fevers at home. He says he was tested for COVID 19 last Friday after he and his were exposed to COVID 19 from his daughter and son in law who had tested positive. He says that he has not been able to keep down any food for the past week and has experienced fevers. He has not had any diarrhea. He denies shortness of breath and cough. He and his have both been experiencing symptoms and he is concerned about his as she has diarrhea. He has not had any falls but he does feel weaker than normal, he is independent at home. This morning he was able to get his medications down with a glass of milk. His made him pancakes but he quickly threw them up, no other intake today. He came to the ED since he has not felt well for a week now. He was COVID 19 positive and placed in negative pressure isolation. CXR with subtle left lung infiltrates and he was > 95% on room air entire time in the ED. He had a T max of 38 and received Tylenol. Lab work shows a WBC of 3k, Hb 13, plts 96, BUN/Cr 24 and 1.59 and magnesium low at 1.4. LFT normal. He was ordered magnesium sulfate IV and NSS at 125cc/hr and given Zofran. Admission requested due to dehydration and low magnesium and being 89 and not eating for a week. Allergies Allergy/AdvReac Type Severity Reaction Status Date / Time No Known Drug Allergies Allergy Verified 01/08/20 13:09 Home Medications Medication Instructions Recorded Confirmed Type aspirin 81 mg tablet,delayed 81 mg PO QAM 03/12/18 01/08/20 History release clonidine HCl 0.1 mg tablet 0.1 mg PO DAILY PRN tab 11/04/18 01/08/20 History pantoprazole 40 mg tablet,delayed 40 mg PO BID #180 tab 02/24/19 01/08/20 Rx release clopidogrel 75 mg tablet 75 mg PO QAM #90 tab 04/22/19 01/08/20 Rx carvedilol 25 mg tablet 25 mg PO BID #180 tab 05/06/19 01/08/20 Rx metformin 1,000 mg tablet 1,000 mg PO BID #180 tab 05/17/19 01/08/20 Rx atorvastatin 80 mg tablet 80 mg PO HS #90 tab 06/21/19 01/08/20 Rx glimepiride 4 mg tablet 4 mg PO BID #180 tab 08/04/19 01/08/20 Rx sitagliptin [Januvia] 25 mg PO HS 01/08/20 01/08/20 History valsartan 160 mg PO BID 01/08/20 01/08/20 History Past Med/Surg History Medical History Abdominal gas pain Actinic keratosis Altered mental status Anaplasmosis Arm pain, left Atrial premature complex Benign localized prostatic hyperplasia with lower urinary tract symptoms (LUTS) BMI 29.0-29.9,adult Cardiac enzymes elevated Chest pain Chews tobacco regularly CKD (chronic kidney disease), stage III Constipation Depression Diabetes mellitus Diabetic nephropathy Diabetic peripheral neuropathy [place] lesion of stomach Dizziness Erythematous papules of skin Gastritis GERD (gastroesophageal reflux disease) H. pylori infection Helicobacter pylori ab+ (10/27/13) Hiatal hernia History of SCC (squamous cell carcinoma) of skin Hypertension Hypokalemia Poorly-controlled hypertension Post-void dribbling Rhabdomyolysis SI joint arthritis Trochanteric bursitis Type 2 diabetes mellitus Unilateral primary osteoarthritis, left hip Urinary hesitancy Visual impairment Vitamin D deficiency Surgical History History of appendectomy History of colonoscopy History of transurethral resection of prostate Family History Unknown Diabetes Coronary heart disease Father Prostate cancer Other Family history non-contributory Social History Smoking Status: Never smoker Second Hand Exposure: No; Hx Alcohol Use: No Hx Substance Use: No Preferred Language: Serbian Communication Ability: Effective Hearing Ability: Use of Hearing Aid Is Analyst Required: No Beliefs That Will Affect Care: None marital status: Current Living Situation: Spouse current occupational status: retired Feels Safe at Home: Yes Dental Care, Regularly: No Physical Activity Frequency: Daily Seatbelt Use: always Sunscreen Use: No Assistive Devices: Glasses, Hearing Aid - Bilateral and Walker Review of Systems Review of Systems: All systems reviewed & are unremarkable except as noted in HPI & below Physical Exam Constitutional: WD/WN, vitals as above Eyes: PERRL, conjunctivae normal, anicteric sclerae ENMT: Ears: no hearing impairment Nose: + dry nasal mucous membranes Mouth: + dry oral mucous membranes Neck: trachea midline, no thyromegaly Respiratory: normal respiratory effort, lungs clear to auscultation Cardiovascular: RRR, no murmur, no edema Gastrointestinal (Abdomen): normal bowel sounds, soft, nontender, no hepatosplenomegaly Musculoskeletal: no cyanosis or clubbing, extremities motor strength 5/5 Skin: + turgor decreased; no rashes, no jaundice and no erythema Neurologic: patellar DTR's 2+ bilat, sensation intact and PERRL, EOMI, accommodation nl, no face palsy, no dysarthria Psychiatric: A+Ox3, euthymic affect Lymphatic: no cervical or axillary lymphadenopathy Results & Data Results & Data ([facility]) Vital Signs (Past 12 Hours) Vital Signs Temp Pulse Resp BP Pulse Ox 01/08/20 13:10 87 26 H 95 01/08/20 13:01 92 H 20 93 01/08/20 13:00 95 H 24 102/65 94 01/08/20 12:50 81 92 01/08/20 12:40 91 H 95 01/08/20 12:31 90 29 H 95 01/08/20 12:30 93 H 27 H 97/58 L 94 01/08/20 12:20 92 H 24 93 01/08/20 12:10 93 H 95 01/08/20 12:01 91 H 96 01/08/20 12:00 92 H 105/60 96 01/08/20 11:50 94 H 95 01/08/20 11:40 95 H 21 96 01/08/20 11:31 92 H 95 01/08/20 11:30 96 H 21 115/67 90 01/08/20 11:20 96 H 95 01/08/20 11:10 94 H 96 01/08/20 11:08 95 H 115/66 96 01/08/20 11:00 97 01/08/20 10:36 38.0 C H 95 H 20 122/73 96 Laboratory Results Laboratory Results - last 24 hr 01/08/20 01/08/20 01/08/20 10:43 10:43 12:32 WBC RBC Hgb Hct MCV MCH MCHC RDW Std Deviation RDW Coeff of Allie Plt Count MPV Immature Gran % (Auto) Neut % (Auto) Lymph % (Auto) [place] % (Auto) Eos % (Auto) Baso % (Auto) Neut # (Auto) Lymph # (Auto) [place] # (Auto) Eos # (Auto) Baso # (Auto) Immature Gran # (Auto) Platelet Estimate RBC Morphology PT INR APTT PTT Ratio Sodium Potassium Chloride Carbon Dioxide Anion Gap BUN Creatinine Est Cr Clr Drug Dosing Est GFR ( Amer) Est GFR (Non-Af Amer) BUN/Creatinine Ratio Glucose Lactate 2.2 H* Calcium Magnesium Total Bilirubin AST ALT Alkaline Phosphatase Troponin I Total Protein Albumin Globulin Albumin/Globulin Ratio Procalcitonin COVID-19 Eval Order Covid19 IDNow [email or web address] SARS-CoV-2, RNA, NAAT POSITIVE A* 01/08/20 01/08/20 01/08/20 14:37 Unknown Unknown WBC 3.21 L RBC 4.17 L Hgb 13.5 L Hct 39.8 L MCV 95.4 MCH 32.4 MCHC 33.9 RDW Std Deviation 48.8 H RDW Coeff of Allie 14.0 Plt Count 96 L MPV 10.2 Immature Gran % (Auto) 0.3 Neut % (Auto) 62.4 Lymph % (Auto) 19.3 [place] % (Auto) 17.1 Eos % (Auto) 0.6 Baso % (Auto) 0.3 Neut # (Auto) 2.00 Lymph # (Auto) 0.62 L [place] # (Auto) 0.55 Eos # (Auto) 0.02 Baso # (Auto) 0.01 Immature Gran # (Auto) 0.01 Platelet Estimate Decreased L RBC Morphology Unremarkable PT INR APTT PTT Ratio Sodium Potassium Chloride Carbon Dioxide Anion Gap BUN Creatinine Est Cr Clr Drug Dosing Est GFR ( Amer) Est GFR (Non-Af Amer) BUN/Creatinine Ratio Glucose Lactate Pending Calcium Magnesium Total Bilirubin AST ALT Alkaline Phosphatase Troponin I Total Protein Albumin Globulin Albumin/Globulin Ratio Procalcitonin 0.05 COVID-19 Eval Order SARS-CoV-2, RNA, NAAT 01/08/20 01/08/20 Unknown Unknown WBC RBC Hgb Hct MCV MCH MCHC RDW Std Deviation RDW Coeff of Allie Plt Count MPV Immature Gran % (Auto) Neut % (Auto) Lymph % (Auto) [place] % (Auto) Eos % (Auto) Baso % (Auto) Neut # (Auto) Lymph # (Auto) [place] # (Auto) Eos # (Auto) Baso # (Auto) Immature Gran # (Auto) Platelet Estimate RBC Morphology PT 11.3 INR 1.1 APTT 37.3 H PTT Ratio 1.3 Sodium 134 L Potassium 4.6 Chloride 104 Carbon Dioxide 26 Anion Gap 4.0 BUN 24 H Creatinine 1.59 H Est Cr Clr Drug Dosing 34.9 Est GFR ( Amer) 44.6 Est GFR (Non-Af Amer) 38.5 BUN/Creatinine Ratio 15.3 Glucose 166 H Lactate Calcium 8.7 Magnesium 1.4 L Total Bilirubin 0.7 AST 34 ALT 24 Alkaline Phosphatase 81 Troponin I 0.023 Total Protein 7.8 Albumin 3.5 Globulin 4.3 H Albumin/Globulin Ratio 0.8 L Procalcitonin COVID-19 Eval Order SARS-CoV-2, RNA, NAAT Diagnostic Findings XR chest 1V portable HISTORY: 89 years-old Male SEPSIS acute sepsis COMPARISON: Chest radiograph 10/08/2019 TECHNIQUE: Portable AP view of the chest FINDINGS: Cardiac silhouette is upper limits of normal in size. Mild chronic interstitial coarsening. There are new ill-defined opacities of the lateral left midlung and lung bases. No pneumothorax or large pleural effusion. Unchanged left hemidiaphragm elevation. Degenerative changes of the shoulders and spine. IMPRESSION: Interstitial opacities of the lateral left midlung with minimal bibasilar densities are suspicious for a nonspecific infectious or inflammatory pneumonitis. Code Status & VTE Plan VTE Prophylaxis Plan VTE Prophylaxis will be ordered: Yes PG Care Time/CCT Total # of Minutes Spent Total Time Spent with Patient: Total time spent is greater than 50% in coordination of care (as documented) at patient's floor/unit and/or counseling patient: Coding Level of Care Code 74729 Initial Inpt Care Lvl 3 Diagnoses COVID-19 virus infection U07.1 Intractable nausea and vomiting R11.2 Hypomagnesemia E83.42 Dehydration E86.0 CKD (chronic kidney disease), stage III N18.3 Coronary artery disease I25.10 Associated angina: without angina Coronary Disease-Associated Artery/Lesion type: viejas artery [place] vs. transplanted heart: viejas heart Hypertension I10 Hypertension type: essential hypertension Type 2 diabetes mellitus E11.22; N18.3 Chronic kidney disease stage: stage 3 (moderate) Diabetes mellitus complication detail: with chronic kidney disease Diabetes mellitus complication status: with kidney complications Diabetes mellitus salvage determiner insulin use: without nursing home use (1) Type 2 diabetes mellitus Chronic kidney disease stage: stage 3 (moderate) Diabetes mellitus complication detail: with chronic kidney disease Diabetes mellitus complication status: with kidney complications Diabetes mellitus nursing home insulin use: without nursing home use Qualified Code(s): E11.22 - Type 2 diabetes mellitus with diabetic chronic kidney disease; N18.3 - Chronic kidney disease, stage 3 (moderate) (2) Coronary artery disease Associated angina: without angina Coronary Disease-Associated Artery/Lesion type: viejas artery [place] vs. transplanted heart: viejas heart Qualified Code(s): I25.10 - Atherosclerotic heart disease of viejas coronary artery without angina pectoris (3) Hypertension Hypertension type: essential hypertension Qualified Code(s): I10 - Essential (primary) hypertension
[2020-01-08] MEDS ORDERED: MAGNESIUM SULFATE / D5W 1 GM/100 ML BAG IV ONE (18:58)
[2020-01-08] MEDS ORDERED: ONDANSETRON INJ 2 MG/ML 2 ML VIAL IV PRN (18:58)
[2020-01-08] MEDS ORDERED: PROMETHAZINE HCL 12.5 MG in SODIUM CHLORIDE 0.9% 50 ML IV PRN (18:58)
[2020-01-08] MEDS ORDERED: ACETAMINOPHEN 325 MG TAB PO PRN (18:58)
[2020-01-08] MEDS ORDERED: CARBOHYDRATES FOR HYPOGLYCEMIA PO PRN (20:15)
[2020-01-08] MEDS ORDERED: GLUCOSE 10 TABS/TUBE PO PRN (20:15)
[2020-01-08] MEDS ORDERED: GLUCOSE 40% GEL 15 GM TUBE PO PRN (20:15)
[2020-01-08] MEDS ORDERED: DEXTROSE 50% 50 ML SYRINGE IV PRN (20:15)
[2020-01-08] MEDS ORDERED: GLUCAGON FOR INJ 1 MG VIAL SQ PRN (20:15)
[2020-01-08] MEDS: carvediloL 12.5 MG TAB PO SCH (20:28)
[2020-01-08] MEDS ORDERED: ATORVASTATIN 40 MG TAB PO SCH (21:00)
[2020-01-08 21:29] LABS: Appearance Urine Clear (Clear); Bacteria Urine Automated Negative (Negative); Bilirubin Urine Negative (Negative); Blood Urine Negative (Negative); Color Urine Yellow; Glucose Urine UA Negative (Negative); Ketones Urine Negative (Negative); Leukocyte Esterase Urine Negative (Negative); Nitrite Urine Negative (Negative); Protein Urine 1+ (Negative); Specific Gravity Urine 1.021 (1.000-1.030); Urobilinogen Urine Negative (Negative)
[2020-01-08] MEDS: INSULIN ASPART 100 UNITS/ML 3 ML PEN SC SCH (21:34)
[2020-01-08] MEDS: PANTOprazole 40 MG in SYRINGE 0 ML IV SCH (21:34)
[2020-01-08] MEDS: HEPARIN SOD 5,000 UNIT/0.5 ML VIAL SQ SCH (21:35)
[2020-01-09] MEDS: HEPARIN SOD 5,000 UNIT/0.5 ML VIAL SQ SCH (04:58)
[2020-01-09 06:23] LABS: Hematocrit (blood only) 34.9 % (42-52); Hemoglobin 11.8 g/dL (14.0-18.0); Mean Corpuscular Hemoglobin 31.9 pg (25-34); Mean Corpuscular Hgb Conc 33.8 g/dL (32-36); Mean Corpuscular Volume 94.3 fL (80-100); RDW Standard Deviation 48.5 fL (36.4-46.3); White Blood Count 2.79 K/uL (4.8-10.8)
[2020-01-09 06:26] LABS: Platelet Count 88 K/uL (130-400)
[2020-01-09] MEDS: SODIUM CHLORIDE 0.9% 1000ML 1,000 ML IV SCH (06:29)
[2020-01-09 06:53] LABS: Albumin Level 2.8 gm/dl (3.4-5.0); BUN Creatinine Ratio 15.6 (10-20); Calcium 7.9 mg/dl (8.5-10.1); Creatinine Clr Calc Pharmacy 41.1 ml/min; Est GFR (African American) 54.3; Est GFR (Non-African American) 46.9; Potassium 4.2 mmol/L (3.5-5.1)
[2020-01-09 07:03] LABS: Albumin Globulin Ratio 0.8 (0.9-2); Bilirubin,Total 0.6 mg/dl (0.2-1); Globulin 3.4 gm/dl (2.5-4.0); Total Protein 6.2 gm/dl (6.4-8.2)
--- NOTE | 2020-01-09 08:43 | Electrocardiogram Report ---
Test Reason : Blood Pressure : / mmHG Vent. Rate : 095 BPM Atrial Rate : 095 BPM P-R Int : 166 ms QRS Dur : 124 ms QT Int : 374 ms P-R-T Axes : 112 -71 014 degrees QTc Int : 469 ms Normal sinus rhythm Right bundle branch block Left anterior fascicular block Possible Old Septal infarct (cited on or before 08-OCT-2019) Abnormal ECG When compared with ECG of 08-OCT-2019 13:11, UT interval has decreased Confirmed by Johan Navarro ([id number]) on 01/09/2020 8:43:05 AM Referred By: REFERRED SELF Confirmed By:Johan Navarro
[2020-01-09] MEDS ORDERED: ASPIRIN 81 MG ECTAB PO SCH (09:00)
[2020-01-09] MEDS ORDERED: CLOPIDOGREL BISULFATE 75 MG TAB PO SCH (09:00)
[2020-01-09] MEDS: carvediloL 12.5 MG TAB PO SCH (09:14)
[2020-01-09] MEDS: INSULIN ASPART 100 UNITS/ML 3 ML PEN SC SCH (09:25)
[2020-01-09] MEDS: PANTOprazole 40 MG in SYRINGE 0 ML IV SCH (10:01)
--- NOTE | 2020-01-09 10:07 | Discharge Summary ---
Date of Service January 09, 2020 Admission HPI Per Admitting Provider 89 yo male with one week of poor oral intake and fevers at home. He says he was tested for COVID 19 last Friday after he and his were exposed to COVID 19 from his daughter and son in law who had tested positive. He says that he has not been able to keep down any food for the past week and has experienced fevers. He has not had any diarrhea. He denies shortness of breath and cough. He and his have both been experiencing symptoms and he is concerned about his as she has diarrhea. He has not had any falls but he does feel weaker than normal, he is independent at home. This morning he was able to get his medications down with a glass of milk. His made him pancakes but he quickly threw them up, no other intake today. He came to the ED since he has not felt well for a week now. He was COVID 19 positive and placed in negative pressure isolation. CXR with subtle left lung infiltrates and he was > 95% on room air entire time in the ED. He had a T max of 38 and received Tylenol. Lab work shows a WBC of 3k, Hb 13, plts 96, BUN/Cr 24 and 1.59 and magnesium low at 1.4. LFT normal. He was ordered magnesium sulfate IV and NSS at 125cc/hr and given Zofran. Admission requested due to dehydration and low magnesium and being 89 and not eating for a week. Principal Diagnosis COVID 19, dehydration due to vomiting Discharge Exam Constitutional WD/WN, vitals as above Eyes PERRL, conjunctivae normal, anicteric sclerae ENMT external ear and nose normal, oropharynx normal Ears: no hearing impairment Neck trachea midline, no thyromegaly Respiratory normal respiratory effort, lungs clear to auscultation Cardiovascular RRR, no murmur, no edema Gastrointestinal (Abdomen) normal bowel sounds, soft, nontender, no hepatosplenomegaly Musculoskeletal no cyanosis or clubbing, extremities motor strength 5/5 Skin normal turgor; no rashes, no jaundice and no erythema Neurologic patellar DTR's 2+ bilat, sensation intact and PERRL, EOMI, accommodation nl, no face palsy, no dysarthria Psychiatric A+Ox3, euthymic affect Lymphatic no cervical or axillary lymphadenopathy Discharge Data Allergies Allergy/AdvReac Type Severity Reaction Status Date / Time No Known Drug Allergies Allergy Verified 01/08/20 13:09 Consultations 01/08/20 12:43 ED Decision to Admit Stat 01/08/20 18:58 Consult Case Management - Discharge Planning Routine Hospital Course (1) COVID-19 virus infection: COVID 19 detected on 01/07 has a fever and main symptoms are gastrointestinal has subtle changes of pulmonary infiltrates in left lung on CXR but no dyspnea, no cough and no hypoxia no indication for dexamethasone treated with NSS at 80cc/hr, received over two liters of fluid on admission he feels a lot better today, eating well no hypoxia, saturating >95% on room air entire admission discharge to home, instructed to stay well hydrated with 1-2 liters of fluid a day stay well nourished, get rest he knows to remain in quarantine, his is ill as well as his daughter and son in law (2) Intractable nausea and vomiting: most likely due to COVID 19 Zofran and Phenergan PRN eating well prior to discharge, ate breakfast and lunch without issues provided script for Zofran to use at home as needed (3) Hypomagnesemia: 1.4 in the ED, he was ordered 1gm IV will give additional 1gm IV mag sulfate magnesium now normal, was due to GI losses (4) Dehydration: poor oral intake for past week, mucous membranes dry, decreased turgor of skin completed NSS 125cc/hr x 1 bag then rune NSS at 80cc/hr resolved, CR improved from 1.6 to 1.3 (5) CKD (chronic kidney disease), stage III: Cr is close to baseline, does not appear to have KRISTINE hold Valsartan Cr is 1.3 today, making adequate urine instructed to HOLD Valsartan another three days as he focuses on hydration blood pressure low normal at this time (6) Coronary artery disease: no chest pain, continue aspirin and Coreg HOLD Plavix for a week due to platelet count of 88 (7) Hypertension: hold Valsartan as BP is low normal and he may be prone to being dry continue Coreg (8) Type 2 diabetes mellitus: hold Januvia, glimepiride and metformin Novolog SS (9) Thrombocytopenia: plts low at 88k will hold Plavix for 7 days, continue aspirin 81mg daily plts likely low due to infection Total Time Total Time Spent Total Time Spent (In Minutes): 36 minutes Total Time Includes: Examination of the Patient, Discharge Planning, Medication Reconciliation and Other (spoke with patient's daughter over the phone) Discharge Plan Discharge Items Patient Disposition: Home - Self-Care Reason For Visit: COVID 19, VOMITING, DEHYDRATION Discharge Diagnosis: COVID 19 infection Dehydration Condition on Discharge: Good Goals: stay well hydrated and well nourished Activity: Resume your previous activity Weightbearing: Full weightbearing Non-emergency contact: Primary Care Provider Call non-emergency contact if: you have any medication questions and your symptoms worsen Follow-up/Referrals: Miguel Olivares MD [Primary Care Provider] - (two weeks) Diet: Carb Consistent or DM2 Addtl Attending Provider Instructions: Medications: - ZOFRAN: anti nausea medication, take this as needed for nausea symptoms, for the next three days you can take this before meals to help keep food down - VALSARTAN: HOLD this medication for the next three days as you work on staying well hydrated Resume on 01/12 - PLAVIX: HOLD this for the next week as platelets dropped low, likely a result of the infection, safe to continue aspirin Resume on 01/16 COVID 19 infection causing dehydration no evidence of pneumonia on testing, you have not required any oxygen during your stay treated with aggressive IV hydration, your Cr improved from 1.6 to 1.3 which is your baseline renal function electrolytes are now stable important to remain well hydrated, try to drink 1-2 liters of fluid a day use Zofran to treat any nausea symptoms, could try take prior to meals for the next 2-3 days to ensure you keep food down hold your Valsartan for three days, this can strain kidneys, especially when dry Pending Studies at Discharge: No Stand-Alone Forms: [employer], Smoking Cessation Medications and DC Order Prescriptions: New ondansetron HCl [Zofran] 4 mg tablet 4 mg PO Q8H PRN (Reason: nausea and vomiting) 5 Days Qty: 20 RF: 0 Continued aspirin [Adult Aspirin Regimen] 81 mg tablet,delayed release (DR/EC) 81 mg PO QAM RF: 0 carvedilol 25 mg tablet 25 mg PO BID Qty: 180 RF: 3 metformin 1,000 mg tablet 1,000 mg PO BID Qty: 180 RF: 3 atorvastatin 80 mg tablet 80 mg PO HS Qty: 90 RF: 3 glimepiride 4 mg tablet 4 mg PO BID Qty: 180 RF: 3 pantoprazole 40 mg tablet,delayed release (DR/EC) 40 mg PO BID Qty: 180 RF: 3 Januvia 25 mg tablet 25 mg PO HS RF: 0 clonidine HCl 0.1 mg tablet 0.1 mg PO DAILY PRN (Reason: Blood Pressure) RF: 0 Discontinued clopidogrel 75 mg tablet 75 mg PO QAM Qty: 90 RF: 3 valsartan 160 mg tablet 160 mg PO BID RF: 0 Discharge Orders: Discharge Order (Routine); Ordered 01/09/20 Ordered By: Carlton Hansen/Other Patient Handouts: COVID-19 Home Care, Ondansetron tablets Admission Data Admit Date/Time: 01/08/20 14:39 Attending Provider: Carlton Harris Admit Provider: Carlton Harris Primary Care Provider: Miguel Olivares Other Providers: Romaine Coyle Other Interventions: Discharge Summary Assessment (RN) Last Done: 01/09/20 13:28 Coding Level of Care Code D/C Day Management >30 mins Diagnoses COVID-19 virus infection U07.1 Intractable nausea and vomiting R11.2 Hypomagnesemia E83.42 Dehydration E86.0 CKD (chronic kidney disease), stage III N18.3 Coronary artery disease I25.10 Associated angina: without angina Coronary Disease-Associated Artery/Lesion type: [place] artery [place] vs. transplanted heart: enterprise heart Hypertension I10 Hypertension type: essential hypertension Type 2 diabetes mellitus E11.22; N18.3 Chronic kidney disease stage: stage 3 (moderate) Diabetes mellitus complication detail: with chronic kidney disease Diabetes mellitus complication status: with kidney complications Diabetes mellitus shelter insulin use: without superintendent container terminal use Thrombocytopenia D69.6
== END 2020-01-09 14:35 | disposition home or self-care (01) ==
LOC: ED 10:26 → EDINP 14:39 → INTOOBSV 14:39 → 3W 18:08

== ENCOUNTER 2020-01-12 12:53 | Inpatient (IN) ==
--- NOTE | 2020-01-12 13:10 | Emergency Department Note ---
Impression & Plan Acute respiratory failure with hypoxemia, COVID-19, Elevated lactic acid level ED Provider Note NAME: CONCHITA CRUZ AGE: 89 SEX: M : 1930 ARRIVES VIA: Ambulance INFORMANT: Patient, ED PROVIDER(S): Dami Peralta MD Chief Complaint: Confusion HPI: Per nursing family did report some confusion which is a new issue. The patient did have a recent admission on 1128 was discharged on 1130. Patient did test positive for coronavirus at that time. Patient did not have any hypoxia during his hospital stay. Patient did have pulmonary infiltrates but no indication of dexamethasone at that time. Patient did have nausea and vomiting which did improve with Zofran and Phenergan. Patient also thought to have d ehydration related symptoms. Patient did have some associated leukopenia and thrombocytopenia. No reported falls. The patient at the bedside denies any chest pain fever, shortness of breath, nausea, vomiting. Patient states he does have some intermittent abdominal discomfort. Patient has not had any vomiting at home. Patient denies any lower extremity swelling. The patient did receive a flu shot this season. The patient is able to tell me where he is and his name. The patient denies any numbness tingling or focal weakness. ROS: See HPI for pertinent positives and negatives. A total of 10 systems were reviewed and otherwise negative. Past medical history: See below Surgical history: See below Social history: See below Physical Exam: GENERAL: Wearing glasses and a mask, nasal cannula in place. Mild distress. EYE EXAM: Normal conjunctiva. PERRL, no anisocoria and EOM's grossly intact w/o pain. NECK: Supple, no nuchal rigidity, no adenopathy, non-tender. No signs of meningi smus. LUNGS: Mildly tachypneic with shallow breathing. HEART: NSR, no MRG. ABDOMEN: Abdomen soft, non-tender, normo-active bowel sounds, no masses, no rebound or guarding. BACK: No CVA TTP. SKIN: No rashes and no bruising. UPPER EXTREMITIES: Upper extremities are grossly normal. LOWER EXTREMITIES: Grossly normal, no edema. NEURO EXAM: Awake and alert, follows basic commands, oriented to person and place, cranial nerves II-XII grossly intact, normal speech, moves all 4 extremities on command w/o issue. Differential diagnoses: Sepsis, UTI, pneumonia, metabolic, electrolyte abnormalities, cardiac sources, intracerebral event, toxicologic, neurologic, as well as other pathologies. Course: Patient was seen and evaluated the bedside. Full history physical exam was performed. EKG: Indication: Confusion Normal sinus rhythm, rate of 85, normal MA, wide QRS, left axis deviation, right bundle branch block pattern. T wave inversions inferiorly. No significant change from prior EKG completed January 08, 2020. Imaging Studies: Radiology results as stated below per my review in the radiologist's interpretation: SINGLE VIEW CHEST CLINICAL HISTORY: Fever. Hypoxia. Covid. FINDINGS: An AP, portable, upright chest radiograph is compared to study dated 01/08/2020 and correlated with chest CT dated 10/29/2018. The examination is degraded by portable technique and patient rotation. The heart is enlarged. The pulmonary vasculature appears congestive. Multifocal airspace consolidation is seen throughout both lungs. There are small pleural effusions, with trace fluid along the right minor fissure. No pneumothorax is seen. The skeletal structures are osteopenic. The bony thorax is grossly intact. IMPRESSION: 1. Cardiomegaly with pulmonary vascular congestion. 2. There is multifocal airspace consolidation throughout both lungs. This could represent pulmonary edema and/or an infectious/inflammatory pneumonitis. Clinical correlation will be required. 3. Small pleural effusions. Electronically signed by: Nawaf Chanel M.D. 01/12/2020 2:10 PM Dictated: 01/12/20 1408 Transcribed: 01/12/20 1408 Cardiac monitoring: An order was placed for continuous cardiac monitoring. The monitor shows a rate of 89 with sinus rhythm. MDM: Patient does present with confusion. Blood work is obtained along with an EKG, troponin chest x-ray. Patient was given IV fluids antipyretics and antiemetics. Patient does have leukopenia with lymphopenia. Hemoglobin 11.6 chronic and stable. Platelet count 111 which is improved from prior. Patient does have mildly elevated lactate at 3. The patient did receive IV fluids. Patient is positive for coronavirus still. Covid positive with a multifocal pneumonia. Antibiotics deferred to the inpatient team. Troponin is 0.068. Believe this is more driven by the patient's viral infection. I did speak with the on-call hospitalist Dr. Covington and the patient was admitted to the medicine service. The patient did receive dexamethasone. Repeat lactate did show improvement from 3-2.2. Critical Care: I have personally spent 56 minutes of critical care time in direct management of this patient. This includes bedside care, interpretation of diagnostic studies, and testing, discussion with consultants, patient, and family members, and other require inpatient management activities. This 56 minutes is in excess of all separately billable procedures. Past Med/Surg History Medical History Abdominal gas pain Actinic keratosis Altered mental status Anaplasmosis Arm pain, left Atrial premature complex Benign localized prostatic hyperplasia with lower urinary tract symptoms (LUTS) BMI 29.0-29.9,adult Cardiac enzymes elevated Chest pain Chews tobacco regularly CKD (chronic kidney disease), stage III Constipation Depression Diabetes mellitus Diabetic nephropathy Diabetic peripheral neuropathy Dieulafoy lesion of stomach Dizziness Erythematous papules of skin Gastritis GERD (gastroesophageal reflux disease) H. pylori infection Helicobacter pylori ab+ (10/27/13) Hiatal hernia History of SCC (squamous cell carcinoma) of skin Hypertension Hypokalemia Poorly-controlled hypertension Post-void dribbling Rhabdomyolysis SI joint arthritis Trochanteric bursitis Type 2 diabetes mellitus Unilateral primary osteoarthritis, left hip Urinary hesitancy Visual impairment Vitamin D deficiency Surgical History History of appendectomy History of colonoscopy History of transurethral resection of prostate Family History Unknown Diabetes Coronary heart disease Father Prostate cancer Other Family history non-contributory Social History (Updated 01/12/20 @ 16:27 by Romaine Covington) Smoking Status: Never smoker Tobacco Type: Smokeless Tobacco (Dip or Chew) Age Started Using Tobacco: 22; Second Hand Exposure: No; Hx Alcohol Use: No Hx Substance Use: No Preferred Language: Belarusian Communication Ability: Effective Hearing Ability: Use of Hearing Aid Test Examiner Required: No Beliefs That Will Affect Care: None marital status: Current Living Situation: Spouse Current Living Situation Comment: lives in [place] current occupational status: 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; 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; [employer] How many Children do You have: 4 Feels Safe at Home: Yes Dental Care, Regularly: No Physical Activity Frequency: Daily Seatbelt Use: always Sunscreen Use: No Assistive Devices: Glasses and Walker Allergies Allergies Allergy/AdvReac Type Severity Reaction Status Date / Time No Known Drug Allergies Allergy Verified 01/12/20 14:39 Home Meds Home Medications Medication Instructions Recorded Confirmed aspirin 81 mg tablet,delayed 81 mg PO QAM 03/12/18 01/12/20 release clonidine HCl 0.1 mg tablet 0.1 mg PO DAILY PRN tab 11/04/18 01/12/20 Januvia 25 mg PO HS 01/08/20 01/12/20 Previous Rx's Medication Instructions Recorded pantoprazole 40 mg tablet,delayed 40 mg PO BID #180 tab 02/24/19 release carvedilol 25 mg tablet 25 mg PO BID #180 tab 05/06/19 metformin 1,000 mg tablet 1,000 mg PO BID #180 tab 05/17/19 atorvastatin 80 mg tablet 80 mg PO HS #90 tab 06/21/19 glimepiride 4 mg tablet 4 mg PO BID #180 tab 08/04/19 ondansetron HCl [Zofran] 4 mg PO Q8H PRN 5 Days #20 tab 01/09/20 Results & Data (ED) Vital Signs Vital Signs - 24 hr 01/12/20 13:00 01/12/20 13:46 01/12/20 13:47 Temperature 38.1 C H Temperature Source Oral Oral Pulse Rate 89 Pulse Rate from SpO2 Sensor Respiratory Rate 45 H Respiratory Effort / Characteristics Non-Labored Respiratory Pattern Regular Blood Pressure 120/61 Blood Pressure Mean 80 Pulse Oximetry 89 L 97 Oxygen Delivery Method Room Air Nasal Cannula Nasal Cannula Oxygen Flow Rate 2 Sepsis Recent Fever Within 48 Hours Yes Sepsis New/Unexplained Change in Mental Status Yes Sepsis Action Taken by Nursing No Action Required 01/12/20 14:00 01/12/20 14:30 01/12/20 15:00 Temperature Temperature Source Pulse Rate 85 Pulse Rate from SpO2 Sensor 85 79 74 Respiratory Rate 30 H Respiratory Effort / Characteristics Respiratory Pattern Blood Pressure 104/59 L 99/50 L 115/59 L Blood Pressure Mean 78 67 77 Pulse Oximetry 97 95 96 Oxygen Delivery Method Oxygen Flow Rate Sepsis Recent Fever Within 48 Hours Sepsis New/Unexplained Change in Mental Status Sepsis Action Taken by Nursing 01/12/20 15:30 01/12/20 16:00 01/12/20 16:30 Temperature Temperature Source Pulse Rate Pulse Rate from SpO2 Sensor 73 76 76 Respiratory Rate Respiratory Effort / Characteristics Respiratory Pattern Blood Pressure 115/56 L 122/61 126/68 Blood Pressure Mean 89 89 96 Pulse Oximetry 98 94 95 Oxygen Delivery Method Room Air Oxygen Flow Rate Sepsis Recent Fever Within 48 Hours Sepsis New/Unexplained Change in Mental Status Sepsis Action Taken by Nursing 01/12/20 17:00 Temperature Temperature Source Pulse Rate 85 Pulse Rate from SpO2 Sensor 85 Respiratory Rate 27 H Respiratory Effort / Characteristics Respiratory Pattern Blood Pressure 143/70 H Blood Pressure Mean 80 Pulse Oximetry 95 Oxygen Delivery Method Room Air Oxygen Flow Rate Sepsis Recent Fever Within 48 Hours Sepsis New/Unexplained Change in Mental Status Sepsis Action Taken by [facility]sp Medications Current Medication List: was personally reviewed by me Laboratory Data Attestation: I reviewed the patient's lab results. Result diagrams: 01/12/20 13:22 01/12/20 13:22 Lab Results 01/12/20 01/12/20 01/12/20 Range/Units 13:22 13:22 13:22 WBC 3.33 L (4.8-10.8) K/uL RBC 3.59 L (4.7-6.1) M/uL Hgb 11.6 L (14.0-18.0) g/dL Hct 33.3 L (42-52) % MCV 92.8 (80-100) fL MCH 32.3 (25-34) pg MCHC 34.8 (32-36) g/dL RDW Std Deviation 45.9 (36.4-46.3) fL RDW Coeff of Allie 13.6 (11.5-14.5) % Plt Count 111 L (130-400) K/uL MPV 9.8 (7.4-10.4) fL Immature Gran % (Auto) 0.0 % Neut % (Auto) 71.8 % Lymph % (Auto) 14.1 % [place] % (Auto) 13.8 % Eos % (Auto) 0.3 % Baso % (Auto) 0.0 % Neut # (Auto) 2.39 (1.4-6.5) K/uL Lymph # (Auto) 0.47 L (1.2-3.4) K/uL [place] # (Auto) 0.46 (0.11-0.59) K/uL Eos # (Auto) 0.01 (0-0.5) K/uL Baso # (Auto) 0.00 (0-0.2) K/uL Immature Gran # (Auto) 0.00 (0.00-0.02) K/uL Ovalocytes 1+ Echinocytes 1+ PT 11.7 (9.0-12.0) Seconds INR 1.1 (0.9-1.1) APTT 33.2 H (21.0-31.0) Seconds PTT Ratio 1.2 Sodium 138 (136-145) mmol/L Potassium 4.5 (3.5-5.1) mmol/L Chloride 111 H (98-107) mmol/L Carbon Dioxide 20 L (21-32) mmol/L Anion Gap 7.0 (3-11) BUN 23 H (7-18) mg/dl Creatinine 1.59 H (0.6-1.4) mg/dl Est Cr Clr Drug Dosing 34.9 ml/min Est GFR ( Amer) 44.6 Est GFR (Non-Af Amer) 38.5 BUN/Creatinine Ratio 14.5 (10-20) Glucose 202 H (70-99) mg/dl Lactate (0.4-2.0) mmol/L Calcium 8.2 L (8.5-10.1) mg/dl Magnesium 1.8 (1.8-2.4) mg/dl Total Bilirubin 0.7 (0.2-1) mg/dl AST 92 H (15-37) U/L ALT 39 (12-78) U/L Alkaline Phosphatase 66 (45-117) U/L Troponin I 0.068 H* (0-0.045) ng/ml Total Protein 6.6 (6.4-8.2) gm/dl Albumin 2.7 L (3.4-5.0) gm/dl Globulin 3.9 (2.5-4.0) gm/dl Albumin/Globulin Ratio 0.7 L (0.9-2) Procalcitonin (0-0.5) ng/ml COVID-19 Eval Order Influ A Molecular Assay (Negative) Influ B Molecular Assay (Negative) SARS-CoV-2, RNA, NAAT (NEGATIVE) Blood Type Antibody Screen 01/12/20 01/12/20 01/12/20 Range/Units 13:22 13:22 13:22 WBC (4.8-10.8) K/uL RBC (4.7-6.1) M/uL Hgb (14.0-18.0) g/dL Hct (42-52) % MCV (80-100) fL MCH (25-34) pg MCHC (32-36) g/dL RDW Std Deviation (36.4-46.3) fL RDW Coeff of Allie (11.5-14.5) % Plt Count (130-400) K/uL MPV (7.4-10.4) fL Immature Gran % (Auto) % Neut % (Auto) % Lymph % (Auto) % [place] % (Auto) % Eos % (Auto) % Baso % (Auto) % Neut # (Auto) (1.4-6.5) K/uL Lymph # (Auto) (1.2-3.4) K/uL [place] # (Auto) (0.11-0.59) K/uL Eos # (Auto) (0-0.5) K/uL Baso # (Auto) (0-0.2) K/uL Immature Gran # (Auto) (0.00-0.02) K/uL Ovalocytes Echinocytes PT (9.0-12.0) Seconds INR (0.9-1.1) APTT (21.0-31.0) Seconds PTT Ratio Sodium (136-145) mmol/L Potassium (3.5-5.1) mmol/L Chloride (98-107) mmol/L Carbon Dioxide (21-32) mmol/L Anion Gap (3-11) BUN (7-18) mg/dl Creatinine (0.6-1.4) mg/dl Est Cr Clr Drug Dosing ml/min Est GFR ( Amer) Est GFR (Non-Af Amer) BUN/Creatinine Ratio (10-20) Glucose (70-99) mg/dl Lactate 3.0 H* (0.4-2.0) mmol/L Calcium (8.5-10.1) mg/dl Magnesium (1.8-2.4) mg/dl Total Bilirubin (0.2-1) mg/dl AST (15-37) U/L ALT (12-78) U/L Alkaline Phosphatase (45-117) U/L Troponin I (0-0.045) ng/ml Total Protein (6.4-8.2) gm/dl Albumin (3.4-5.0) gm/dl Globulin (2.5-4.0) gm/dl Albumin/Globulin Ratio (0.9-2) Procalcitonin 0.65 H (0-0.5) ng/ml COVID-19 Eval [facility] A Molecular Assay (Negative) Influ B Molecular Assay (Negative) SARS-CoV-2, RNA, NAAT (NEGATIVE) Blood Type Antibody Screen 01/12/20 01/12/20 01/12/20 Range/Units 13:22 13:22 15:36 WBC (4.8-10.8) K/uL RBC (4.7-6.1) M/uL Hgb (14.0-18.0) g/dL Hct (42-52) % MCV (80-100) fL MCH (25-34) pg MCHC (32-36) g/dL RDW Std Deviation (36.4-46.3) fL RDW Coeff of Allie (11.5-14.5) % Plt Count (130-400) K/uL MPV (7.4-10.4) fL Immature Gran % (Auto) % Neut % (Auto) % Lymph % (Auto) % [place] % (Auto) % Eos % (Auto) % Baso % (Auto) % Neut # (Auto) (1.4-6.5) K/uL Lymph # (Auto) (1.2-3.4) K/uL [place] # (Auto) (0.11-0.59) K/uL Eos # (Auto) (0-0.5) K/uL Baso # (Auto) (0-0.2) K/uL Immature Gran # (Auto) (0.00-0.02) K/uL Ovalocytes Echinocytes PT (9.0-12.0) Seconds INR (0.9-1.1) APTT (21.0-31.0) Seconds PTT Ratio Sodium (136-145) mmol/L Potassium (3.5-5.1) mmol/L Chloride (98-107) mmol/L Carbon Dioxide (21-32) mmol/L Anion Gap (3-11) BUN (7-18) mg/dl Creatinine (0.6-1.4) mg/dl Est Cr Clr Drug Dosing ml/min Est GFR ( Amer) Est GFR (Non-Af Amer) BUN/Creatinine Ratio (10-20) Glucose (70-99) mg/dl Lactate 2.2 H* (0.4-2.0) mmol/L Calcium (8.5-10.1) mg/dl Magnesium (1.8-2.4) mg/dl Total Bilirubin (0.2-1) mg/dl AST (15-37) U/L ALT (12-78) U/L Alkaline Phosphatase (45-117) U/L Troponin I (0-0.045) ng/ml Total Protein (6.4-8.2) gm/dl Albumin (3.4-5.0) gm/dl Globulin (2.5-4.0) gm/dl Albumin/Globulin Ratio (0.9-2) Procalcitonin (0-0.5) ng/ml COVID-19 Eval Order Influ A Molecular Assay Negative (Negative) Influ B Molecular Assay Negative (Negative) SARS-CoV-2, RNA, NAAT POSITIVE A* (NEGATIVE) Blood Type Antibody Screen 01/12/20 Range/Units 16:30 WBC (4.8-10.8) K/uL RBC (4.7-6.1) M/uL Hgb (14.0-18.0) g/dL Hct (42-52) % MCV (80-100) fL MCH (25-34) pg MCHC (32-36) g/dL RDW Std Deviation (36.4-46.3) fL RDW Coeff of Allie (11.5-14.5) % Plt Count (130-400) K/uL MPV (7.4-10.4) fL Immature Gran % (Auto) % Neut % (Auto) % Lymph % (Auto) % [place] % (Auto) % Eos % (Auto) % Baso % (Auto) % Neut # (Auto) (1.4-6.5) K/uL Lymph # (Auto) (1.2-3.4) K/uL [place] # (Auto) (0.11-0.59) K/uL Eos # (Auto) (0-0.5) K/uL Baso # (Auto) (0-0.2) K/uL Immature Gran # (Auto) (0.00-0.02) K/uL Ovalocytes Echinocytes PT (9.0-12.0) Seconds INR (0.9-1.1) APTT (21.0-31.0) Seconds PTT Ratio Sodium (136-145) mmol/L Potassium (3.5-5.1) mmol/L Chloride (98-107) mmol/L Carbon Dioxide (21-32) mmol/L Anion Gap (3-11) BUN (7-18) mg/dl Creatinine (0.6-1.4) mg/dl Est Cr Clr Drug Dosing ml/min Est GFR ( Amer) Est GFR (Non-Af Amer) BUN/Creatinine Ratio (10-20) Glucose (70-99) mg/dl Lactate (0.4-2.0) mmol/L Calcium (8.5-10.1) mg/dl Magnesium (1.8-2.4) mg/dl Total Bilirubin (0.2-1) mg/dl AST (15-37) U/L ALT (12-78) U/L Alkaline Phosphatase (45-117) U/L Troponin I (0-0.045) ng/ml Total Protein (6.4-8.2) gm/dl Albumin (3.4-5.0) gm/dl Globulin (2.5-4.0) gm/dl Albumin/Globulin Ratio (0.9-2) Procalcitonin (0-0.5) ng/ml COVID-19 Eval Order Influ A Molecular Assay (Negative) Influ B Molecular Assay (Negative) SARS-CoV-2, RNA, NAAT (NEGATIVE) Blood Type AB Positive Antibody Screen NEGATIVE Administered Medications Discontinued Medications Dexamethasone (Dexamethasone Sod Inj 10 Mg/Ml Vial) 6 mg IV NOW ONE Stop: 01/12/20 13:21 Last Admin: 01/12/20 13:35 Dose: 6 mg Documented by: [id number] Sodium Chloride (Nss 1000ml) 1,000 mls @ 999 mls/hr IV .Q1H1M DERICK Stop: 01/12/20 14:30 Last Admin: 01/12/20 13:35 Dose: 999 mls/hr Documented by: [id number] Acetaminophen (Ofirmev) 1,000 mg in 100 mls @ 400 mls/hr IV NOW STA Stop: 01/12/20 13:34 Last Infusion: 01/12/20 13:52 Dose: 0 mls/hr Documented by: [id number] Admin: 01/12/20 13:35 Dose: 400 mls/hr Documented by: [id number] Ondansetron HCl (Ondansetron Inj 2 Mg/Ml 2 Ml Vial) 4 mg IV NOW STA Stop: 01/12/20 13:21 Last Admin: 01/12/20 13:35 Dose: 4 mg Documented by: [id number] Discharge Plan Visit Data Chief Complaint: Confusion ED Provider: Dami Peralta Discharge Problem: Acute respiratory failure with hypoxemia, COVID-19, Elevated lactic acid level Patient Disposition: Admitted As Inpatient Discharge Instructions Interventions: ED Discharge Assessment Last Done: 01/12/20 17:53 Forms Stand Alone Forms: [facility] Prescriptions Prescriptions: No Action aspirin [Adult Aspirin Regimen] 81 mg tablet,delayed release (DR/EC) 81 mg PO QAM RF: 0 carvedilol 25 mg tablet 25 mg PO BID Qty: 180 RF: 3 metformin 1,000 mg tablet 1,000 mg PO BID Qty: 180 RF: 3 atorvastatin 80 mg tablet 80 mg PO HS Qty: 90 RF: 3 glimepiride 4 mg tablet 4 mg PO BID Qty: 180 RF: 3 pantoprazole 40 mg tablet,delayed release (DR/EC) 40 mg PO BID Qty: 180 RF: 3 Januvia 25 mg tablet 25 mg PO HS RF: 0 ondansetron HCl [Zofran] 4 mg tablet 4 mg PO Q8H PRN (Reason: nausea and vomiting) 5 Days Qty: 20 RF: 0 clonidine HCl 0.1 mg tablet 0.1 mg PO DAILY PRN (Reason: Blood Pressure) RF: 0 Referrals Referrals: Miguel Olivares MD [Primary Care Provider] -
[2020-01-12] MEDS ORDERED: ACETAMINOPHEN 1,000 MG/100 ML VIAL IV STA (13:20)
[2020-01-12] MEDS ORDERED: DEXAMETHASONE SOD INJ 10 MG/ML VIAL IV ONE (13:20)
[2020-01-12] MEDS ORDERED: ONDANSETRON INJ 2 MG/ML 2 ML VIAL IV STA (13:20)
[2020-01-12] MEDS ORDERED: SODIUM CHLORIDE 0.9% 1000ML 1,000 ML IV SCH ×2 (13:30→19:07)
[2020-01-12 13:51] LABS: Eosinophils # (auto) 0.01 K/uL (0-0.5); Eosinophils % (auto) 0.3 %; Hematocrit (blood only) 33.3 % (42-52); Hemoglobin 11.6 g/dL (14.0-18.0); Lymphocytes # (auto) 0.47 K/uL (1.2-3.4); Lymphocytes % (auto) 14.1 %; Mean Corpuscular Hemoglobin 32.3 pg (25-34); Mean Corpuscular Hgb Conc 34.8 g/dL (32-36); Mean Corpuscular Volume 92.8 fL (80-100); Mean Platelet Volume 9.8 fL (7.4-10.4); Monocytes # (auto) 0.46 K/uL (0.11-0.59); Monocytes % (auto) 13.8 %; Neutrophils # (auto) 2.39 K/uL (1.4-6.5); Neutrophils % (auto) 71.8 %; Platelet Count 111 K/uL (130-400); RDW Coefficient of Variation 13.6 % (11.5-14.5); RDW Standard Deviation 45.9 fL (36.4-46.3); Red Blood Count 3.59 M/uL (4.7-6.1); White Blood Count 3.33 K/uL (4.8-10.8)
[2020-01-12 14:04] LABS: INR 1.1 (0.9-1.1); Partial Thromboplastin Ratio 1.2; Partial Thromboplastin Time 33.2 Seconds (21.0-31.0); Prothrombin Time 11.7 Seconds (9.0-12.0)
[2020-01-12 14:09] LABS: Albumin Level 2.7 gm/dl (3.4-5.0); BUN Creatinine Ratio 14.5 (10-20); Calcium 8.2 mg/dl (8.5-10.1); Creatinine Clr Calc Pharmacy 34.9 ml/min; Est GFR (African American) 44.6; Est GFR (Non-African American) 38.5; Magnesium 1.8 mg/dl (1.8-2.4); Potassium 4.5 mmol/L (3.5-5.1)
[2020-01-12 14:11] LABS: Echinocytes 1+; Ovalocytes 1+
--- NOTE | 2020-01-12 14:11 | XRay Report ---
SINGLE VIEW CHEST CLINICAL HISTORY: Fever. Hypoxia. Covid. FINDINGS: An AP, portable, upright chest radiograph is compared to study dated 01/08/2020 and correla kierra with chest CT dated 10/29/2018. The examination is degraded by portable technique and patient rota tion. The heart is enlarged. The pulmonary vasculature appears congestive. Multifocal airspace conso lidation is seen throughout both lungs. There are small pleural effusions, with trace fluid along the right minor fissure. No pneumothorax is seen. The skeletal structures are osteopenic. The bony thora x is grossly intact. IMPRESSION: 1. Cardiomegaly with pulmonary vascular congestion. 2. There is multifocal airspace consolidation throughout both lungs. This could represent pulmonary e ravi and/or an infectious/inflammatory pneumonitis. Clinical correlation will be required. 3. Small pleural effusions. Electronically signed by: Nawaf Chanel M.D. 01/12/2020 2:10 PM
[2020-01-12 14:18] LABS: Albumin Globulin Ratio 0.7 (0.9-2); Bilirubin,Total 0.7 mg/dl (0.2-1); Globulin 3.9 gm/dl (2.5-4.0); Total Protein 6.6 gm/dl (6.4-8.2); Troponin I 0.068 ng/ml (0-0.045)
--- NOTE | 2020-01-12 14:21 | Electrocardiogram Report ---
Test Reason : Blood Pressure : / mmHG Vent. Rate : 085 BPM Atrial Rate : 085 BPM P-R Int : 166 ms QRS Dur : 126 ms QT Int : 386 ms P-R-T Axes : -06 -77 -18 degrees QTc Int : 459 ms Normal sinus rhythm Right bundle branch block Left anterior fascicular block Bifascicular block Abnormal ECG When compared with ECG of 08-JAN-2020 11:05, No significant change was found Confirmed by Jose Maldonado ([id number]) on 01/12/2020 2:21:09 PM Referred By: Confirmed By:Doug Maldonado
--- NOTE | 2020-01-12 14:54 | History & Physical Report ---
Date of Service January 12, 2020 Assessment & Plan (1) Pneumonia due to COVID-19 virus: Chest x-ray findings have progressed significantly since his previous hospital stay a few days ago. He does not clinically appear to be in acute CHF. CXR and clinical findings most c/w worsening COVID-19 pneumonia. Procal is modestly elevated thus cannot rule out a concomitant bacterial pneumonia. Since he was just hospitalized will need to cover for gram negative pneumonia - thus will utilize cefepime. Add doxy for atypical coverage. With respect to his COVID- he is about 10 days into his illness. Despite such plasma may be of some utility given that he is worsening. Thus, consent for plasma obtained from . Unfortunately, however, several hours after obtaining his type/screen, I was informed by the blood bank that there is a national shortage of AB plasma and thus he may not receive such for 2-3 days or more. Continue decadron x 10 days. Not a good candidate for remdesivir -- CrCl is nearly <30, and given he is 10+ days out from illness date, will defer on such. O2 to keep sats >92%. (2) Metabolic encephalopathy: 2nd to sepsis and COVID-19. Supportive care. (3) Sepsis: 2nd to COVID-19. Cannot rule out bacterial pneumonia either. Supportive care, IV antibiotics, gentle fluids overnight, follow cultures. (4) Thrombocytopenia: 2nd to COVID-19. Slowly improving. CBC am. (5) CKD (chronic kidney disease), stage III: Baseline CrCL 30s/40s bmp am (6) Coronary artery disease: no evidence of ACS cont beta lucille but will lower dose by 50% hold statin due to mildly elevated AST hold asa due to low platelets - resume if platelets continue to trend up (7) Benign localized prostatic hyperplasia with lower urinary tract symptoms (LUTS): not on meds for such at home (8) Type 2 diabetes mellitus: pharmacy glycemic consult placed hold oral agents (9) Hypertension: BPs low-normal in ER continue coreg but lower the dose by half (10) Elevated troponin: likely 2nd to myocardial demand ischemia in setting of sepsis/COVID-19 no ischemic sx's to suggest ACS repeat trop in am (11) DVT prophylaxis: lovenox 30mg BID -- higher dose due to increased risk of VTE in setting of COVID-19 extensively updated by phone full code History of Present Illness Chief Complaint: ongoing fever, shortness of breath, anorexia, COVID-19+ Primary Care Provider: Miguel Olivares MD 89yo male with h/o CAD, BPH, PAD, CKD stage 3, T2DM, and HTN presents from home via EMS due to worsening COVID-19 symptoms. Patient's history goes back to about 12/31/19 when he developed a cough. Several family members tested positive for COVID-19 around that time and thus he went to the [facility] for COVID-19 testing on 01/01/20. His test ultimately returned positive. He had about 1 week of fevers, anorexia, weakness, 1 episode of vomiting, and simply felt poorly. He presented on 01/08/20 to [facility] due to the above and was admitted for IV hydration. He was discharged on 01/09/20. Never had O2 requirement and thus steroids/plasma/remdesivir were deferred. He returns today with worsening COVID symptoms. He now has loss of taste and smell, worsening cough, worsening dyspnea, confusion, and ongoing fever. Patient's reported to me by phone that his temps have been up to about 102. No vomiting. He has eaten little over the last couple of days. During my bedside assessment he was very confused in addition to being hearing impaired. Very little meaningful history or ROS could be obtained from the patient. Prior to my arrival he received decadron 6mg IV x 1 by ER attending. Allergies Allergy/AdvReac Type Severity Reaction Status Date / Time No Known Drug Allergies Allergy Verified 01/12/20 14:39 Home Medications Medication Instructions Recorded Confirmed Type aspirin 81 mg tablet,delayed 81 mg PO QAM 03/12/18 01/12/20 History release clonidine HCl 0.1 mg tablet 0.1 mg PO DAILY PRN tab 11/04/18 01/12/20 History pantoprazole 40 mg tablet,delayed 40 mg PO BID #180 tab 02/24/19 01/12/20 Rx release carvedilol 25 mg tablet 25 mg PO BID #180 tab 05/06/19 01/12/20 Rx metformin 1,000 mg tablet 1,000 mg PO BID #180 tab 05/17/19 01/12/20 Rx atorvastatin 80 mg tablet 80 mg PO HS #90 tab 05/11/20 12/02/20 Rx glimepiride 4 mg tablet 4 mg PO BID #180 tab 08/04/19 01/12/20 Rx Januvia 25 mg PO HS 01/08/20 01/12/20 History ondansetron HCl [Zofran] 4 mg PO Q8H PRN 5 Days #20 tab 01/09/20 01/12/20 Rx Past Med/Surg History Medical History Actinic keratosis Anaplasmosis Atrial premature complex Benign localized prostatic hyperplasia with lower urinary tract symptoms (LUTS) BMI 29.0-29.9,adult Chews tobacco regularly CKD (chronic kidney disease), stage III Constipation Depression Diabetes mellitus Diabetic nephropathy Diabetic peripheral neuropathy [place]oy lesion of stomach Erythematous papules of skin Gastritis GERD (gastroesophageal reflux disease) Helicobacter pylori ab+ (10/27/13) Hiatal hernia History of SCC (squamous cell carcinoma) of skin Hypertension Rhabdomyolysis SI joint arthritis Trochanteric bursitis Type 2 diabetes mellitus Unilateral primary osteoarthritis, left hip Urinary hesitancy Visual impairment Vitamin D deficiency Surgical History History of appendectomy History of colonoscopy History of transurethral resection of prostate Family History (Updated 01/12/20 @ 22:26 by Romaine Covington) Unknown Diabetes Coronary heart disease Father Prostate cancer Social History (Updated 01/12/20 @ 16:27 by Romaine Covington) Smoking Status: Never smoker Tobacco Type: Smokeless Tobacco (Dip or Chew) Age Started Using Tobacco: 22; Second Hand Exposure: No; Hx Alcohol Use: No Hx Substance Use: No Preferred Language: Macedonian Communication Ability: Effective Hearing Ability: Use of Hearing Aid Relationship Manager Required: No Beliefs That Will Affect Care: None marital status: Current Living Situation: Spouse Current Living Situation Comment: lives in [place] current occupational status: 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; 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; [employer] How many Children do You have: 4 Feels Safe at Home: Yes Dental Care, Regularly: No Physical Activity Frequency: Daily Seatbelt Use: always Sunscreen Use: No Assistive Devices: Glasses Review of Systems Review of Systems: Unobtainable due to cognitive status Physical Exam Constitutional: + ill appearing, + altered mental status and + frail appearing; no acute distress looks dehydrated Eyes: PERRL ENMT: Mouth: + dry oral mucous membranes Neck: trachea midline, no thyromegaly Respiratory: + cough and + tachypneic Auscultation: + rales; no wheezes Cardiovascular: Rate/Rhythm: regular rate and regular rhythm Heart Sounds: normal S1 and normal S2; no murmur Vessels: posterior tibial pulses present and dorsalis pedis pulses present; no JVD Extremities: no edema Gastrointestinal (Abdomen): normal bowel sounds, soft, nontender, no hepatosplenomegaly Musculoskeletal: Head/Neck/Chest: normocephalic and head atraumatic Skin: no rashes, warm and dry Neurologic: moves all extremities and + confused Psychiatric: Orientation: + not alert and + not oriented x 3 Lymphatic: no cervical lymphadenopathy Results & Data Results & Data ([facility]) Vital Signs (Past 12 Hours) Vital Signs Temp Pulse Resp BP Pulse Ox 01/12/20 13:46 97 01/12/20 13:00 38.1 C H 89 45 H 120/61 89 L procal 0.65 Cr 1.59 leukopenic; thrombocytopenic; lymphopenic lactate 3, repeat 2.2 cxr - IMPRESSION: 1. Cardiomegaly with pulmonary vascular congestion. 2. There is multifocal airspace consolidation throughout both lungs. This could represent pulmonary edema and/or an infectious/inflammatory pneumonitis. Clinical correlation will be required. 3. Small pleural effusions. Code Status & VTE Plan Code Status full - confirmed with by phone VTE Prophylaxis Plan VTE Prophylaxis will be ordered: Yes PG Care Time/CCT Total # of Minutes Spent Total Time Spent with Patient: Total time spent is greater than 50% in coordination of care (as documented) at patient's floor/unit and/or counseling patient: Coding Level of Care Code 14309 Initial Inpt Care Lvl 3 Diagnoses Pneumonia due to COVID-19 virus U07.1; J12.89 Metabolic encephalopathy G93.41 Sepsis A41.9 Thrombocytopenia D69.6 CKD (chronic kidney disease), stage III N18.3 Coronary artery disease I25.10 Associated angina: without angina Coronary Disease-Associated Artery/Lesion type: [place] artery [place] vs. transplanted heart: [place] heart Benign localized prostatic hyperplasia with lower urinary tract symptoms (LUTS) N40.1 Type 2 diabetes mellitus E11.22; N18.3 Chronic kidney disease stage: stage 3 (moderate) Diabetes mellitus complication detail: with chronic kidney disease Diabetes mellitus complication status: with kidney complications Diabetes mellitus intermediate card tender insulin use: without intermediate card tender use Hypertension I10 Hypertension type: essential hypertension Elevated troponin R77.8 DVT prophylaxis Z29.9 (1) Type 2 diabetes mellitus Chronic kidney disease stage: stage 3 (moderate) Diabetes mellitus complication detail: with chronic kidney disease Diabetes mellitus complication status: with kidney complications Diabetes mellitus intermediate card tender insulin use: without long-term use Qualified Code(s): E11.22 - Type 2 diabetes mellitus with diabetic chronic kidney disease; N18.3 - Chronic kidney disease, stage 3 (moderate) (2) Coronary artery disease Associated angina: without angina Coronary Disease-Associated Artery/Lesion type: [place] artery [place] vs. transplanted heart: [place] heart Qualified Code(s): I25.10 - Atherosclerotic heart disease of [place] coronary artery without angina pectoris (3) Hypertension Hypertension type: essential hypertension Qualified Code(s): I10 - Essential (primary) hypertension
[2020-01-12 14:58] LABS: Influenza A virus by PCR Negative (Negative)
[2020-01-12 14:59] LABS: Influenza B virus by PCR Negative (Negative)
[2020-01-12 18:40] LABS: Appearance Urine Cloudy (Clear); Bacteria Urine Automated Negative (Negative); Bilirubin Urine Negative (Negative); Blood Urine 3+ (Negative); Color Urine Dark Yellow; Epithelial Cell Urine Auto 20-30 /lpf (0-5); Glucose Urine UA 2+ (Negative); Ketones Urine Trace (Negative); Leukocyte Esterase Urine Negative (Negative); Nitrite Urine Negative (Negative); Protein Urine 3+ (Negative); RBC Urine Automated 0-4 /hpf (0-4); Specific Gravity Urine 1.023 (1.000-1.030); Urobilinogen Urine Negative (Negative)
[2020-01-12] MEDS ORDERED: PNEUMOCOCCAL ADMINISTRATION CHARGE ONE (19:04)
[2020-01-12] MEDS ORDERED: PNEUMOCOCCAL POLYSACCHARIDES 25 MCG/0.5 ML VIAL/SYR IM ONE (19:04)
[2020-01-12] MEDS ORDERED: ONDANSETRON INJ 2 MG/ML 2 ML VIAL IV PRN (19:07)
[2020-01-12] MEDS ORDERED: PHARMACY GLYCEMIC MGMT CONSULT PRN (19:58)
[2020-01-12] MEDS ORDERED: CEFEPIME CONSULT ACTIVE PRN (19:58)
[2020-01-12] MEDS ORDERED: INSULIN GLARGINE SOLOSTAR 100 UNITS/ML 3 ML PEN SC ONE (20:00)
[2020-01-12] MEDS ORDERED: ACETAMINOPHEN 325 MG TAB PO SCH (20:00)
[2020-01-12] MEDS ORDERED: INSULIN GLARGINE SOLOSTAR 100 UNITS/ML 3 ML PEN SC SCH (20:00)
[2020-01-12] MEDS: carvediloL 12.5 MG TAB PO SCH (20:18)
[2020-01-12] MEDS: PANTOprazole 40 MG TAB PO SCH (20:21)
[2020-01-12] MEDS: FAMOTIDINE 20 MG in SYRINGE 3 ML IV SCH (20:21)
[2020-01-12] MEDS: DOXYCYCLINE HYCLATE 100 MG in DEXTROSE 5% 100 ML IV SCH (20:21)
[2020-01-12] MEDS: ENOXAPARIN INJ 30 MG/0.3 ML SYR SQ SCH (20:23)
[2020-01-12] MEDS: INSULIN ASPART 100 UNITS/ML 3 ML PEN SC SCH (21:30)
[2020-01-12] MEDS: CEFEPIME 2,000 MG in SYRINGE 0 ML IV SCH (21:33)
[2020-01-13] MEDS: INSULIN ASPART 100 UNITS/ML 3 ML PEN SC SCH ×7 (00:17→23:50)
[2020-01-13 07:40] LABS: Hematocrit (blood only) 33.9 % (42-52); Hemoglobin 11.8 g/dL (14.0-18.0); Mean Corpuscular Hemoglobin 32.3 pg (25-34); Mean Corpuscular Hgb Conc 34.8 g/dL (32-36); Mean Corpuscular Volume 92.9 fL (80-100); Mean Platelet Volume 9.8 fL (7.4-10.4); Platelet Count 121 K/uL (130-400); RDW Coefficient of Variation 13.7 % (11.5-14.5); RDW Standard Deviation 46.4 fL (36.4-46.3); Red Blood Count 3.65 M/uL (4.7-6.1); White Blood Count 2.72 K/uL (4.8-10.8)
[2020-01-13] MEDS ORDERED: dexAMETHasone 6 MG in SYRINGE 0 ML IV SCH (08:00)
[2020-01-13 08:10] LABS: D Dimer 6630 ug/L FEU (0-500)
[2020-01-13 08:14] LABS: BUN Creatinine Ratio 21.7 (10-20); Calcium 8.9 mg/dl (8.5-10.1); Creatinine Clr Calc Pharmacy 36.2 ml/min; Est GFR (African American) 46.7; Est GFR (Non-African American) 40.3; Potassium 4.1 mmol/L (3.5-5.1)
[2020-01-13 08:18] LABS: Troponin I 0.035 ng/ml (0-0.045)
[2020-01-13] MEDS: CEFEPIME 2,000 MG in SYRINGE 0 ML IV SCH ×2 (08:48→20:52)
[2020-01-13] MEDS: DOXYCYCLINE HYCLATE 100 MG in DEXTROSE 5% 100 ML IV SCH ×2 (08:48→20:51)
[2020-01-13] MEDS: FAMOTIDINE 20 MG in SYRINGE 3 ML IV SCH ×2 (08:48→20:50)
[2020-01-13] MEDS: carvediloL 12.5 MG TAB PO SCH ×2 (08:49→20:49)
[2020-01-13] MEDS: PANTOprazole 40 MG TAB PO SCH ×2 (08:49→20:49)
[2020-01-13] MEDS: ENOXAPARIN INJ 30 MG/0.3 ML SYR SQ SCH ×2 (08:49→20:49)
[2020-01-13] MEDS ORDERED: INSULIN HUMAN NPH SC SCH (09:00)
--- NOTE | 2020-01-13 13:20 | Hospitalist Progress Note ---
Date of Service January 13, 2020 Assessment & Plan (1) Pneumonia due to COVID-19 virus: Chest x-ray findings have progressed significantly since his previous hospital stay a few days ago. He does not clinically appear to be in acute CHF. CXR and clinical findings most c/w worsening COVID-19 pneumonia. Procal is modestly elevated thus cannot rule out a concomitant bacterial pneumonia. Since he was just hospitalized will need to cover for gram negative pneumonia - thus will utilize cefepime. Continue doxy for atypical coverage. With respect to his COVID- he is about 10 days into his illness at the time of admission. Despite such plasma may be of some utility given that he is worsening. Thus, consent for plasma obtained from . -Blood bank states that there is a national shortage of AB plasma and thus he may not receive such for 2-3 days or more. -Continue decadron x 10 days. Last dose will be 01/20 -Not a good candidate for remdesivir -- CrCl is nearly <30, and given he is 10+ days out from illness date, will defer on such. -Use O2 to keep sats >92% if needed. -Follow CBC, CMP, ESR, CRP, D-dimer, ferritin, LDH, and procalcitonin in the morning (2) Metabolic encephalopathy: 2nd to sepsis and COVID-19. Seems much improved in this regard today Supportive care and treatment of sepsis. (3) Sepsis: 2nd to COVID-19. Cannot rule out bacterial pneumonia either. Supportive care, IV antibiotics, gentle fluids overnight, follow cultures. Improving (4) Thrombocytopenia: 2nd to COVID-19. Continues to improve today CBC am. (5) CKD (chronic kidney disease), stage III: Baseline CrCL 30s/40s Creatinine slightly improved today to 1.53, with a nonanion gap metabolic acidosis stable from previous-secondary to dehydration bmp am Avoid nephrotoxins Holding home Metformin (6) Coronary artery disease: no evidence of ACS, has a history of stents placed in 2019 cont beta lucille and will increase back to home dose hold statin due to mildly elevated AST Okay to restart asa as platelets continue to trend upward and he has drug- eluting stents in place (7) Type 2 diabetes mellitus: pharmacy glycemic consult placed hold oral agents With hyperglycemia here now improving throughout the day (8) Hypertension: Blood pressures elevated now (9) Elevated troponin: likely 2nd to myocardial demand ischemia in setting of sepsis/COVID-19 no ischemic sx's to suggest ACS Troponin 0 0.068 on admission and down to 0.035 the next morning No further work-up needed Has known severe CAD Restart aspirin as above and increase beta-lucille back to home dose Holding statin for elevated AST (10) Benign localized prostatic hyperplasia with lower urinary tract symptoms (LUTS): not on meds for such at home Watch for urinary retention (11) Chews tobacco regularly: Add on nicotine patch and nicotine gum as needed (12) Ear pain, left: I was notified later in the day patient was having some left ear pain Will look with otoscope in the morning if still causing pain Start Tylenol as needed for pain (13) DVT prophylaxis: lovenox 30mg BID -- higher dose due to increased risk of VTE in setting of COVID-19 Disposition-continued stay in PCU full code Admission and Anticipated Discharge Date Admission Date: January 12, 2020 Subjective Patient reports feeling fine. He feels the urge to move his bowels. He has been fairly irritable today with nursing staff. He typically chews tobacco frequently and nicotine replacement was ordered. Denies chest pain or shortness of breath. He remains with pulse ox in the low 90s but not requiring oxygen. He is not confused and has no other complaints. Telemetry with normal sinus rhythm, PACs, rates in the 60s to 70s Review of Systems Review of Systems: All systems reviewed & are unremarkable except as noted in HPI & below No urinary issues Physical Exam Constitutional: WD/WN, vitals as above Eyes: + anicteric sclerae Neck: trachea midline, no thyromegaly Respiratory: normal respiratory effort Auscultation: + crackles (At lower lung pro bilaterally); no rhonchi and no wheezes Cardiovascular: RRR, no murmur, no edema Chest (Breasts): Chest: normal inspection of chest Gastrointestinal (Abdomen): normal bowel sounds, soft, nontender, no hepat osplenomegaly Musculoskeletal: Extremities: extremities normal to inspection; no cyanosis and no clubbing Skin: no rashes, warm and dry Neurologic: moves all extremities and awake; no focal motor deficits Psychiatric: Orientation: alert, oriented to person, oriented to place and cooperative Affect: + irritable affect Lymphatic: no lymphedema Results & Data Results [facility]) Vital Signs (Past 12 Hours) Vital Signs Temp Pulse Pulse Resp BP BP Pulse Ox 01/13/20 11:35 36.6 C 64 19 148/74 H 93 01/13/20 09:04 91 01/13/20 08:02 36.4 C L 67 20 145/68 H 89 L 01/13/20 08:00 60 01/13/20 04:34 36.1 C L 60 16 137/64 93 Laboratory Results 01/13/20 01/13/20 01/13/20 Range/Units 20:42 17:00 11:35 WBC (4.8-10.8) K/uL RBC (4.7-6.1) M/uL Hgb (14.0-18.0) g/dL Hct (42-52) % MCV (80-100) fL MCH (25-34) pg MCHC (32-36) g/dL RDW Std Deviation (36.4-46.3) fL RDW Coeff of Allie (11.5-14.5) % Plt Count (130-400) K/uL MPV (7.4-10.4) fL D-Dimer (0-500) ug/L FEU Sodium (136-145) mmol/L Potassium (3.5-5.1) mmol/L Chloride (98-107) mmol/L Carbon Dioxide (21-32) mmol/L Anion Gap (3-11) BUN (7-18) mg/dl Creatinine (0.6-1.4) mg/dl Est Cr Clr Drug Dosing ml/min Est GFR ( Amer) Est GFR (Non-Af Amer) BUN/Creatinine Ratio (10-20) Glucose (70-99) mg/dl POC Glucose 159 H 167 H 295 H (70-99) mg/dl Calcium (8.5-10.1) mg/dl AST (15-37) U/L Troponin I (0-0.045) ng/ml Blood Type Antibody Screen 01/13/20 01/13/20 01/13/20 Range/Units 08:04 07:06 07:06 WBC (4.8-10.8) K/uL RBC (4.7-6.1) M/uL Hgb (14.0-18.0) g/dL Hct (42-52) % MCV (80-100) fL MCH (25-34) pg MCHC (32-36) g/dL RDW Std Deviation (36.4-46.3) fL RDW Coeff of Allie (11.5-14.5) % Plt Count (130-400) K/uL MPV (7.4-10.4) fL D-Dimer 6630 H* (0-500) ug/L FEU Sodium 140 (136-145) mmol/L Potassium 4.1 (3.5-5.1) mmol/L Chloride 114 H (98-107) mmol/L Carbon Dioxide 20 L (21-32) mmol/L Anion Gap 6.0 (3-11) BUN 33 H (7-18) mg/dl Creatinine 1.53 H (0.6-1.4) mg/dl Est Cr Clr Drug Dosing 36.2 ml/min Est GFR ( Amer) 46.7 Est GFR (Non-Af Amer) 40.3 BUN/Creatinine Ratio 21.7 H (10-20) Glucose 243 H (70-99) mg/dl POC Glucose 249 H (70-99) mg/dl Calcium 8.9 (8.5-10.1) mg/dl AST 87 H (15-37) U/L Troponin I 0.035 (0-0.045) ng/ml Blood Type Antibody Screen 01/13/20 01/13/20 01/13/20 Range/Units 07:06 05:12 00:02 WBC 2.72 L (4.8-10.8) K/uL RBC 3.65 L (4.7-6.1) M/uL Hgb 11.8 L (14.0-18.0) g/dL Hct 33.9 L (42-52) % MCV 92.9 (80-100) fL MCH 32.3 (25-34) pg MCHC 34.8 (32-36) g/dL RDW Std Deviation 46.4 H (36.4-46.3) fL RDW Coeff of Allie 13.7 (11.5-14.5) % Plt Count 121 L (130-400) K/uL MPV 9.8 (7.4-10.4) fL D-Dimer (0-500) ug/L FEU Sodium (136-145) mmol/L Potassium (3.5-5.1) mmol/L Chloride (98-107) mmol/L Carbon Dioxide (21-32) mmol/L Anion Gap (3-11) BUN (7-18) mg/dl Creatinine (0.6-1.4) mg/dl Est Cr Clr Drug Dosing ml/min Est GFR ( Amer) Est GFR (Non-Af Amer) BUN/Creatinine Ratio (10-20) Glucose (70-99) mg/dl POC Glucose 238 H 385 H* (70-99) mg/dl Calcium (8.5-10.1) mg/dl AST (15-37) U/L Troponin I (0-0.045) ng/ml Blood Type Antibody Screen 01/12/20 Range/Units 16:30 WBC (4.8-10.8) K/uL RBC (4.7-6.1) M/uL Hgb (14.0-18.0) g/dL Hct (42-52) % MCV (80-100) fL MCH (25-34) pg MCHC (32-36) g/dL RDW Std Deviation (36.4-46.3) fL RDW Coeff of Allie (11.5-14.5) % Plt Count (130-400) K/uL MPV (7.4-10.4) fL D-Dimer (0-500) ug/L FEU Sodium (136-145) mmol/L Potassium (3.5-5.1) mmol/L Chloride (98-107) mmol/L Carbon Dioxide (21-32) mmol/L Anion Gap (3-11) BUN (7-18) mg/dl Creatinine (0.6-1.4) mg/dl Est Cr Clr Drug Dosing ml/min Est GFR ( Amer) Est GFR (Non-Af Amer) BUN/Creatinine Ratio (10-20) Glucose (70-99) mg/dl POC Glucose (70-99) mg/dl Calcium (8.5-10.1) mg/dl AST (15-37) U/L Troponin I (0-0.045) ng/ml Blood Type AB Positive Antibody Screen NEGATIVE PG Care Time/CCT Total # of Minutes Spent Total Time Spent with Patient: Total time spent is greater than 50% in coordination of care (as documented) at patient's floor/unit and/or counseling patient: Coding Level of Care Code 72832 Subseq Hosp Care Lvl 3 Diagnoses Pneumonia due to COVID-19 virus U07.1; J12.89 Metabolic encephalopathy G93.41 Sepsis A41.9 Thrombocytopenia D69.6 CKD (chronic kidney disease), stage III N18.3 Coronary artery disease I25.10 Associated angina: without angina Coronary Disease-Associated Artery/Lesion type: [place] artery [place] vs. transplanted heart: [place] heart Type 2 diabetes mellitus E11.22; N18.3 Chronic kidney disease stage: stage 3 (moderate) Diabetes mellitus complication detail: with chronic kidney disease Diabetes mellitus complication status: with kidney complications Diabetes mellitus half-way insulin use: without intermediate manager use Hypertension I10 Hypertension type: essential hypertension Elevated troponin R77.8 Benign localized prostatic hyperplasia with lower urinary tract symptoms (LUTS) N40.1 Chews tobacco regularly Z72.0 Ear pain, left H92.02 DVT prophylaxis Z29.9 (1) Type 2 diabetes mellitus Chronic kidney disease stage: stage 3 (moderate) Diabetes mellitus complication detail: with chronic kidney disease Diabetes mellitus complication status: with kidney complications Diabetes mellitus intermediate manager insulin use: without intermediate manager use Qualified Code(s): E11.22 - Type 2 diabetes mellitus with diabetic chronic kidney disease; N18.3 - Chronic kidney disease, stage 3 (moderate) (2) Coronary artery disease Associated angina: without angina Coronary Disease-Associated Artery/Lesion type: [place] artery [place] vs. transplanted heart: [place] heart Qualified Code(s): I25.10 - Atherosclerotic heart disease of [place] coronary artery without angina pectoris (3) Hypertension Hypertension type: essential hypertension Qualified Code(s): I10 - Essential (primary) hypertension
--- NOTE | 2020-01-13 14:31 | Pharmacy Report ---
Pharmacy Glycemic Short Note 2 - Date of Service January 13, 2020 - Glycemic Short BSG Results (Last 24 hours): 01/12/20 01/13/20 01/13/20 20:16 00:02 05:12 Glucose POC Glucose 263 H 385 H* 238 H 01/13/20 01/13/20 01/13/20 07:06 08:04 11:35 Glucose 243 H POC Glucose 249 H 295 H OUTPATIENT ANTIDIABETIC REGIMEN: * amaryl, metformin, januvia ASSESSMENT: * Patient admitted with COVID pneumonia, type 2 diabetic managed on orals at home. Most recent A1C ~9.7% * Patient started on IV steroids, anticipate BSGs to trend upward. Received total of 76 units of insulin yesterday, of which 40 were basal insulin * Fasting BSG remains elevated - 249 mg/dL, plan to add NPH with dex administration to help with coverage of BSGs throughout the day. Started at lower unit/kg NPH dosing d/t large Lantus dose being given yesterday at HS * Will provide scale for Lantus as HS as baseline patient likely needing insulin d/t A1c elevated PLAN FOR INPATIENT GLYCEMIC CONTROL: * Hold outpatient oral diabetes medications * Basal insulin * Lantus 30-40 units HS * Bolus insulin * NovoLog per scale ACHS or Q6hrs while NPO * Goal Range: Low 110 mg/dL - High 140 mg/dL * Correction Factor: 15 mg/dL/unit * Nutritional / Prandial insulin per carb ratio of 1 unit per 5 grams CHO consumed PLAN FOR DISCHARGE: * tbd
[2020-01-13] MEDS ORDERED: NICOTINE POLACRILEX 2 MG GUM MT PRN (16:24)
[2020-01-13] MEDS ORDERED: NICOTINE 14 MG/24 HR PATCH TD SCH (16:30)
[2020-01-13] MEDS ORDERED: ACETAMINOPHEN 325 MG TAB PO PRN (18:04)
[2020-01-13] MEDS: INSULIN GLARGINE SOLOSTAR 100 UNITS/ML 3 ML PEN SC SCH (21:11)
[2020-01-13] MEDS: ASPIRIN 81 MG ECTAB PO SCH (22:52)
[2020-01-14] MEDS: INSULIN ASPART 100 UNITS/ML 3 ML PEN SC SCH ×5 (04:09→21:04)
[2020-01-14] MEDS: ENOXAPARIN INJ 30 MG/0.3 ML SYR SQ SCH ×2 (07:43→20:37)
[2020-01-14] MEDS: ASPIRIN 81 MG ECTAB PO SCH (07:44)
[2020-01-14] MEDS: DOXYCYCLINE HYCLATE 100 MG in DEXTROSE 5% 100 ML IV SCH ×2 (07:44→20:38)
[2020-01-14] MEDS: carvediloL 25 MG TAB PO SCH ×2 (07:44→20:37)
[2020-01-14] MEDS: NICOTINE 14 MG/24 HR PATCH TD SCH (07:44)
[2020-01-14] MEDS: FAMOTIDINE 20 MG in SYRINGE 3 ML IV SCH ×2 (07:44→20:36)
[2020-01-14] MEDS: dexAMETHasone 6 MG in SYRINGE 0 ML IV SCH (07:44)
[2020-01-14] MEDS: PANTOprazole 40 MG TAB PO SCH ×2 (07:46→20:37)
--- NOTE | 2020-01-14 08:18 | Pharmacy Report ---
Pharmacy Glycemic Short Note 2 - Date of Service January 14, 2020 - Glycemic Short BSG Results (Last 24 hours): 01/13/20 01/13/20 01/13/20 08:04 11:35 17:00 POC Glucose 249 H 295 H 167 H 01/13/20 01/13/20 01/14/20 20:42 23:43 04:03 POC Glucose 159 H 168 H 143 H 01/14/20 07:31 POC Glucose 116 H OUTPATIENT ANTIDIABETIC REGIMEN: * amaryl, metformin, januvia ASSESSMENT: 01/13: * BSGs yesterday of 249, 295, 167, 159, and 168 mg/dL * Patient received 104 units of insulin (18 units of NPH, 30 units of Lantus, and 56 units of prandial/correctional) * Fasting BSG of 116 mg/dL this morning * Will continue with 0.2 unit/kg NPH (i.e. 18 units) w/ IV dexamethasone today * Lunch BSG of 66 mg/dL - will loosen Novolog and decrease NPH dose for tomorrow * Continues on cefepime and doxycycline 01/12: * Patient admitted with COVID pneumonia, type 2 diabetic managed on orals at home. Most recent A1C ~9.7% * Patient started on IV steroids, anticipate BSGs to trend upward. Received total of 76 units of insulin yesterday, of which 40 were basal insulin * Fasting BSG remains elevated - 249 mg/dL, plan to add NPH with dex administration to help with coverage of BSGs throughout the day. Started at lower unit/kg NPH dosing d/t large Lantus dose being given yesterday at HS * Will provide scale for Lantus as HS as baseline patient likely needing insulin d/t A1c elevated PLAN FOR INPATIENT GLYCEMIC CONTROL: * Hold outpatient oral diabetes medications * Basal insulin - decrease * NPH 10 units (~0.1 unit/kg) SC qAM w/ dexamethasone starting tomorrow * Lantus scale HS (20-30 units - see EHR for details) * Bolus insulin * NovoLog per scale ACHS or Q6hrs while NPO * Goal Range: Low 110 mg/dL - High 140 mg/dL * Correction Factor: 20 mg/dL/unit * Nutritional / Prandial insulin per carb ratio of 1 unit per 6 grams CHO consumed PLAN FOR DISCHARGE: * tbd
[2020-01-14 08:23] LABS: D Dimer 5140 ug/L FEU (0-500)
[2020-01-14 08:25] LABS: Albumin Level 2.9 gm/dl (3.4-5.0); BUN Creatinine Ratio 19.8 (10-20); C Reactive Protein 5.16 mg/dl (0-0.29); Calcium 9.4 mg/dl (8.5-10.1); Est GFR (African American) 46.3; Magnesium 1.9 mg/dl (1.8-2.4); Potassium 3.7 mmol/L (3.5-5.1)
[2020-01-14 08:34] LABS: Basophils # (auto) 0.01 K/uL (0-0.2); Basophils % (auto) 0.1 %; Hematocrit (blood only) 40.5 % (42-52); Hemoglobin 14.2 g/dL (14.0-18.0); Immature Granulocytes # (auto) 0.06 K/uL (0.00-0.02); Immature Granulocytes % (auto) 0.4 %; Lymphocytes # (auto) 0.77 K/uL (1.2-3.4); Lymphocytes % (auto) 5.7 %; Mean Corpuscular Hemoglobin 32.1 pg (25-34); Mean Corpuscular Hgb Conc 35.1 g/dL (32-36); Mean Corpuscular Volume 91.6 fL (80-100); Mean Platelet Volume 10.3 fL (7.4-10.4); Monocytes # (auto) 0.74 K/uL (0.11-0.59); Monocytes % (auto) 5.5 %; Neutrophils # (auto) 11.93 K/uL (1.4-6.5); Neutrophils % (auto) 88.3 %; Platelet Count 231 K/uL (130-400); RDW Coefficient of Variation 13.7 % (11.5-14.5); RDW Standard Deviation 45.7 fL (36.4-46.3); Red Blood Count 4.42 M/uL (4.7-6.1); White Blood Count 13.51 K/uL (4.8-10.8)
[2020-01-14 08:36] LABS: Echinocytes 1+
[2020-01-14 08:40] LABS: Albumin Globulin Ratio 0.7 (0.9-2); Bilirubin,Total 0.7 mg/dl (0.2-1); Ferritin 2351.5 ng/ml (8-388); Globulin 4.4 gm/dl (2.5-4.0); Phosphorus 2.1 mg/dl (2.5-4.9); Total Protein 7.3 gm/dl (6.4-8.2)
[2020-01-14] MEDS ORDERED: INSULIN HUMAN NPH SC SCH ×2 (09:00)
[2020-01-14] MEDS ORDERED: POTASSIUM PHOS 3 MMOL/1 ML INFUSION IV STA (09:10)
[2020-01-14] MEDS ORDERED: POTASSIUM PHOSPHATE 15 MMOL in SODIUM CHLORIDE 0.9% 250 ML IV ONE (09:45)
[2020-01-14] MEDS: CEFEPIME 2,000 MG in SYRINGE 0 ML IV SCH ×2 (10:03→22:47)
[2020-01-14] MEDS ORDERED: CARBOHYDRATES FOR HYPOGLYCEMIA PO ONE (11:34)
[2020-01-14] MEDS ORDERED: GLUCOSE 40% GEL 15 GM TUBE PO PRN (11:45)
[2020-01-14] MEDS ORDERED: DEXTROSE 50% 50 ML SYRINGE IV PRN (11:45)
[2020-01-14] MEDS ORDERED: GLUCOSE 10 TABS/TUBE PO PRN (11:45)
[2020-01-14] MEDS ORDERED: GLUCAGON FOR INJ 1 MG VIAL IM PRN (11:45)
--- NOTE | 2020-01-14 13:31 | Hospitalist Progress Note ---
Date of Service January 14, 2020 Assessment & Plan (1) Pneumonia due to COVID-19 virus: Chest x-ray findings have progressed significantly since his previous hospital stay a few days ago. He does not clinically appear to be in acute CHF. CXR and clinical findings most c/w worsening COVID-19 pneumonia. Procal is modestly elevated thus cannot rule out a concomitant bacterial pneumonia.It remains the exact same level today Since he was just hospitalized will need to cover for gram negative pneumonia - thus will continue cefepime. Continue doxy for atypical coverage. With respect to his COVID- he was about 10 days into his illness at the time of admission. Despite such plasma may be of some utility given that he is worsening. Thus, consent for plasma obtained from . -Blood bank states that there is a national shortage of AB plasma and thus still waiting on it -Continue decadron x 10 days. Last dose will be 01/20 -Not a good candidate for remdesivir -- CrCl is nearly <30, and given he is 10+ days out from illness date, will defer on such. -Use O2 to keep sats >92% if needed. -Follow CBC, CMP, ESR, CRP, D-dimer, ferritin, LDH, and procalcitonin every other day (2) Metabolic encephalopathy: 2nd to sepsis and COVID-19. Seems improved but still with intermittent confusion Supportive care and treatment of sepsis. (3) Sepsis: 2nd to COVID-19. Cannot rule out bacterial pneumonia either. Supportive care, IV antibiotics, follow cultures. Ur cx with pinpoint growth BCxs -NGTD Improving (4) Thrombocytopenia: 2nd to COVID-19. resolved (5) CKD (chronic kidney disease), stage III: Baseline CrCL 30s/40s Creatinine remains at baseline 1.5, with a nonanion gap metabolic acidosis secondary to dehydration now resolved bmp am Avoid nephrotoxins Holding home Metformin (6) Coronary artery disease: no evidence of ACS, has a history of stents placed in 2019 Denies any chest pain cont COreg restart statin which was being held due to mildly elevated AST -continue asa as platelets now normal and has drug-eluting stents in place (7) Type 2 diabetes mellitus: pharmacy glycemic consult placed hold oral agents With hyperglycemia here and then hypoglycemia this AM continue insulin as per pHarmacy (8) Hypertension: Blood pressures mildly elevated continue Coreg (9) Elevated troponin: likely 2nd to myocardial demand ischemia in setting of sepsis/COVID-19 no ischemic sx's to suggest ACS Troponin 0 0.068 on admission and down to 0.035 the next morning No further work-up needed Has known severe CAD continue aspirin and beta-lucille restart statin (10) Benign localized prostatic hyperplasia with lower urinary tract symptoms (LUTS): not on meds for such at home Watch for urinary retention (11) Chews tobacco regularly: Added on nicotine patch and nicotine gum as needed (12) Ear pain, left: had some left ear pain on 01/13, resolved with tylenol (13) Hypophosphatemia: replace with IV K-Phos follow phos in AM (14) DVT prophylaxis: lovenox 30mg BID -- higher dose due to increased risk of VTE in setting of COVID-19 Disposition-downgrade to medical/surgical full code Admission and Anticipated Discharge Date Admission Date: January 12, 2020 Subjective Pt remains confused at times. Got anxious waiting for RN to come in today to help him with toileting and POx briefly down to 79%, then recovered on 2L. Also he will not leave his tele leads on. Also removed his gown. He was able to be redirected and was asking appropriate questions after I explained to him why he was in the hospital. Initially he thought he must be in the hospital because he had an accident. He later asked how long he would be in the hospital and what the date was. Tele with NSR, PVCs, rates 90s. Review of Systems Review of Systems: All systems reviewed & are unremarkable except as noted in HPI & below Physical Exam Constitutional: WD/WN, vitals as above Eyes: + anicteric sclerae Neck: trachea midline, no thyromegaly Respiratory: normal respiratory effort Auscultation: + crackles (At lower lung pro bilaterally); no rhonchi and no wheezes Cardiovascular: RRR, no murmur, no edema Chest (Breasts): Chest: normal inspection of chest Gastrointestinal (Abdomen): normal bowel sounds, soft, nontender, no hepatosplenomegaly Musculoskeletal: Extremities: extremities normal to inspection; no cyanosis and no clubbing Skin: no rashes, warm and dry Neurologic: moves all extremities and awake; no focal motor deficits Psychiatric: Orientation: alert, oriented to person, oriented to place and cooperative Lymphatic: no lymphedema Results & Data Results & Data ([facility]) Vital Signs (Past 12 Hours) Vital Signs Temp Pulse Pulse Resp BP Pulse Ox 01/14/20 12:50 36.6 C 90 01/14/20 11:31 37.0 C 80 20 151/79 H 93 01/14/20 08:00 76 01/14/20 07:33 36.3 C L 103 H 23 166/80 H 92 01/14/20 03:00 36.3 C L 72 24 174/91 H 92 Laboratory Results 01/14/20 01/14/20 01/14/20 Range/Units 11:43 11:30 11:29 WBC (4.8-10.8) K/uL RBC (4.7-6.1) M/uL Hgb (14.0-18.0) g/dL Hct (42-52) % MCV (80-100) fL MCH (25-34) pg MCHC (32-36) g/dL RDW Std Deviation (36.4-46.3) fL RDW Coeff of Lalie (11.5-14.5) % Plt Count (130-400) K/uL MPV (7.4-10.4) fL Immature Gran % (Auto) % Neut % (Auto) % Lymph % (Auto) % [place] % (Auto) % Eos % (Auto) % Baso % (Auto) % Neut # (Auto) (1.4-6.5) K/uL Lymph # (Auto) (1.2-3.4) K/uL [place] # (Auto) (0.11-0.59) K/uL Eos # (Auto) (0-0.5) K/uL Baso # (Auto) (0-0.2) K/uL Immature Gran # (Auto) (0.00-0.02) K/uL Echinocytes ESR (0-14) mm/hr D-Dimer (0-500) ug/L FEU Sodium (136-145) mmol/L Potassium (3.5-5.1) mmol/L Chloride (98-107) mmol/L Carbon Dioxide (21-32) mmol/L Anion Gap (3-11) BUN (7-18) mg/dl Creatinine (0.6-1.4) mg/dl Est Cr Clr Drug Dosing ml/min Est GFR ( Amer) Est GFR (Non-Af Amer) BUN/Creatinine Ratio (10-20) Glucose (70-99) mg/dl POC Glucose 73 64 L* 66 L* (70-99) mg/dl Calcium (8.5-10.1) mg/dl Phosphorus (2.5-4.9) mg/dl Magnesium (1.8-2.4) mg/dl Ferritin (8-388) ng/ml Total Bilirubin (0.2-1) mg/dl AST (15-37) U/L ALT (12-78) U/L Alkaline Phosphatase (45-117) U/L Lactate Dehydrogenase (87-241) U/L C-Reactive Protein (0-0.29) mg/dl Total Protein (6.4-8.2) gm/dl Albumin (3.4-5.0) gm/dl Globulin (2.5-4.0) gm/dl Albumin/Globulin Ratio (0.9-2) Procalcitonin (0-0.5) ng/ml 01/14/20 01/14/20 01/14/20 Range/Units 07:31 07:24 07:24 WBC (4.8-10.8) K/uL RBC (4.7-6.1) M/uL Hgb (14.0-18.0) g/dL Hct (42-52) % MCV (80-100) fL MCH (25-34) pg MCHC (32-36) g/dL RDW Std Deviation (36.4-46.3) fL RDW Coeff of Allie (11.5-14.5) % Plt Count (130-400) K/uL MPV (7.4-10.4) fL Immature Gran % (Auto) % Neut % (Auto) % Lymph % (Auto) % [place] % (Auto) % Eos % (Auto) % Baso % (Auto) % Neut # (Auto) (1.4-6.5) K/uL Lymph # (Auto) (1.2-3.4) K/uL [place] # (Auto) (0.11-0.59) K/uL Eos # (Auto) (0-0.5) K/uL Baso # (Auto) (0-0.2) K/uL Immature Gran # (Auto) (0.00-0.02) K/uL Echinocytes ESR (0-14) mm/hr D-Dimer (0-500) ug/L FEU Sodium (136-145) mmol/L Potassium (3.5-5.1) mmol/L Chloride (98-107) mmol/L Carbon Dioxide (21-32) mmol/L Anion Gap (3-11) BUN (7-18) mg/dl Creatinine (0.6-1.4) mg/dl Est Cr Clr Drug Dosing ml/min Est GFR ( Amer) Est GFR (Non-Af Amer) BUN/Creatinine Ratio (10-20) Glucose (70-99) mg/dl POC Glucose 116 H (70-99) mg/dl Calcium (8.5-10.1) mg/dl Phosphorus (2.5-4.9) mg/dl Magnesium (1.8-2.4) mg/dl Ferritin (8-388) ng/ml Total Bilirubin (0.2-1) mg/dl AST (15-37) U/L ALT (12-78) U/L Alkaline Phosphatase (45-117) U/L Lactate Dehydrogenase 665 H (87-241) U/L C-Reactive Protein (0-0.29) mg/dl Total Protein (6.4-8.2) gm/dl Albumin (3.4-5.0) gm/dl Globulin (2.5-4.0) gm/dl Albumin/Globulin Ratio (0.9-2) Procalcitonin 0.65 H (0-0.5) ng/ml 01/14/20 01/14/20 01/14/20 Range/Units 07:24 07:24 07:24 WBC 13.51 H (4.8-10.8) K/uL RBC 4.42 L (4.7-6.1) M/uL Hgb 14.2 (14.0-18.0) g/dL Hct 40.5 L (42-52) % MCV 91.6 (80-100) fL MCH 32.1 (25-34) pg MCHC 35.1 (32-36) g/dL RDW Std Deviation 45.7 (36.4-46.3) fL RDW Coeff of Allie 13.7 (11.5-14.5) % Plt Count 231 D (130-400) K/uL MPV 10.3 (7.4-10.4) fL Immature Gran % (Auto) 0.4 % Neut % (Auto) 88.3 % Lymph % (Auto) 5.7 % [place] % (Auto) 5.5 % Eos % (Auto) 0.0 % Baso % (Auto) 0.1 % Neut # (Auto) 11.93 H (1.4-6.5) K/uL Lymph # (Auto) 0.77 L (1.2-3.4) K/uL [place] # (Auto) 0.74 H (0.11-0.59) K/uL Eos # (Auto) 0.00 (0-0.5) K/uL Baso # (Auto) 0.01 (0-0.2) K/uL Immature Gran # (Auto) 0.06 H (0.00-0.02) K/uL Echinocytes 1+ ESR 32 H (0-14) mm/hr D-Dimer 5140 H* (0-500) ug/L FEU Sodium (136-145) mmol/L Potassium (3.5-5.1) mmol/L Chloride (98-107) mmol/L Carbon Dioxide (21-32) mmol/L Anion Gap (3-11) BUN (7-18) mg/dl Creatinine (0.6-1.4) mg/dl Est Cr Clr Drug Dosing ml/min Est GFR ( Amer) Est GFR (Non-Af Amer) BUN/Creatinine Ratio (10-20) Glucose (70-99) mg/dl POC Glucose (70-99) mg/dl Calcium (8.5-10.1) mg/dl Phosphorus (2.5-4.9) mg/dl Magnesium (1.8-2.4) mg/dl Ferritin (8-388) ng/ml Total Bilirubin (0.2-1) mg/dl AST (15-37) U/L ALT (12-78) U/L Alkaline Phosphatase (45-117) U/L Lactate Dehydrogenase (87-241) U/L C-Reactive Protein (0-0.29) mg/dl Total Protein (6.4-8.2) gm/dl Albumin (3.4-5.0) gm/dl Globulin (2.5-4.0) gm/dl Albumin/Globulin Ratio (0.9-2) Procalcitonin (0-0.5) ng/ml 01/14/20 01/14/20 01/13/20 Range/Units 07:24 04:03 23:43 WBC (4.8-10.8) K/uL RBC (4.7-6.1) M/uL Hgb (14.0-18.0) g/dL Hct (42-52) % MCV (80-100) fL MCH (25-34) pg MCHC (32-36) g/dL RDW Std Deviation (36.4-46.3) fL RDW Coeff of Allie (11.5-14.5) % Plt Count (130-400) K/uL MPV (7.4-10.4) fL Immature Gran % (Auto) % Neut % (Auto) % Lymph % (Auto) % [place] % (Auto) % Eos % (Auto) % Baso % (Auto) % Neut # (Auto) (1.4-6.5) K/uL Lymph # (Auto) (1.2-3.4) K/uL [place] # (Auto) (0.11-0.59) K/uL Eos # (Auto) (0-0.5) K/uL Baso # (Auto) (0-0.2) K/uL Immature Gran # (Auto) (0.00-0.02) K/uL Echinocytes ESR (0-14) mm/hr D-Dimer (0-500) ug/L FEU Sodium 141 (136-145) mmol/L Potassium 3.7 (3.5-5.1) mmol/L Chloride 110 H (98-107) mmol/L Carbon Dioxide 23 (21-32) mmol/L Anion Gap 8.0 (3-11) BUN 31 H (7-18) mg/dl Creatinine 1.54 H (0.6-1.4) mg/dl Est Cr Clr Drug Dosing 36.0 ml/min Est GFR ( Amer) 46.3 Est GFR (Non-Af Amer) 40.0 BUN/Creatinine Ratio 19.8 (10-20) Glucose 112 H (70-99) mg/dl POC Glucose 143 H 168 H (70-99) mg/dl Calcium 9.4 (8.5-10.1) mg/dl Phosphorus 2.1 L (2.5-4.9) mg/dl Magnesium 1.9 (1.8-2.4) mg/dl Ferritin 2351.5 H (8-388) ng/ml Total Bilirubin 0.7 (0.2-1) mg/dl AST 93 H (15-37) U/L ALT 57 (12-78) U/L Alkaline Phosphatase 82 (45-117) U/L Lactate Dehydrogenase (87-241) U/L C-Reactive Protein 5.16 H (0-0.29) mg/dl Total Protein 7.3 (6.4-8.2) gm/dl Albumin 2.9 L (3.4-5.0) gm/dl Globulin 4.4 H (2.5-4.0) gm/dl Albumin/Globulin Ratio 0.7 L (0.9-2) Procalcitonin (0-0.5) ng/ml 01/13/20 01/13/20 Range/Units 20:42 17:00 WBC (4.8-10.8) K/uL RBC (4.7-6.1) M/uL Hgb (14.0-18.0) g/dL Hct (42-52) % MCV (80-100) fL MCH (25-34) pg MCHC (32-36) g/dL RDW Std Deviation (36.4-46.3) fL RDW Coeff of Allie (11.5-14.5) % Plt Count (130-400) K/uL MPV (7.4-10.4) fL Immature Gran % (Auto) % Neut % (Auto) % Lymph % (Auto) % [place] % (Auto) % Eos % (Auto) % Baso % (Auto) % Neut # (Auto) (1.4-6.5) K/uL Lymph # (Auto) (1.2-3.4) K/uL [place] # (Auto) (0.11-0.59) K/uL Eos # (Auto) (0-0.5) K/uL Baso # (Auto) (0-0.2) K/uL Immature Gran # (Auto) (0.00-0.02) K/uL Echinocytes ESR (0-14) mm/hr D-Dimer (0-500) ug/L FEU Sodium (136-145) mmol/L Potassium (3.5-5.1) mmol/L Chloride (98-107) mmol/L Carbon Dioxide (21-32) mmol/L Anion Gap (3-11) BUN (7-18) mg/dl Creatinine (0.6-1.4) mg/dl Est Cr Clr Drug Dosing ml/min Est GFR ( Amer) Est GFR (Non-Af Amer) BUN/Creatinine Ratio (10-20) Glucose (70-99) mg/dl POC Glucose 159 H 167 H (70-99) mg/dl Calcium (8.5-10.1) mg/dl Phosphorus (2.5-4.9) mg/dl Magnesium (1.8-2.4) mg/dl Ferritin (8-388) ng/ml Total Bilirubin (0.2-1) mg/dl AST (15-37) U/L ALT (12-78) U/L Alkaline Phosphatase (45-117) U/L Lactate Dehydrogenase (87-241) U/L C-Reactive Protein (0-0.29) mg/dl Total Protein (6.4-8.2) gm/dl Albumin (3.4-5.0) gm/dl Globulin (2.5-4.0) gm/dl Albumin/Globulin Ratio (0.9-2) Procalcitonin (0-0.5) ng/ml PG Care Time/CCT Total # of Minutes Spent Total Time Spent with Patient: Total time spent is greater than 50% in coordination of care (as documented) at patient's floor/unit and/or counseling patient: Coding Level of Care Code 30147 Subseq Hosp Care Lvl 3 Diagnoses Pneumonia due to COVID-19 virus U07.1; J12.89 Metabolic encephalopathy G93.41 Sepsis A41.9 Thrombocytopenia D69.6 CKD (chronic kidney disease), stage III N18.3 Coronary artery disease I25.10 Coronary Disease-Associated Artery/Lesion type: [place] artery [place] vs. transplanted heart: [place] heart Associated angina: without angina Type 2 diabetes mellitus E11.22; N18.3 Diabetes mellitus custodial insulin use: without long chain dyeing machine operator use Diabetes mellitus complication status: with kidney complications Diabetes mellitus complication detail: with chronic kidney disease Chronic kidney disease stage: stage 3 (moderate) Hypertension I10 Hypertension type: essential hypertension Elevated troponin R77.8 Benign localized prostatic hyperplasia with lower urinary tract symptoms (LUTS) N40.1 Chews tobacco regularly Z72.0 Ear pain, left H92.02 Hypophosphatemia E83.39 DVT prophylaxis Z29.9 (1) Coronary artery disease Coronary Disease-Associated Artery/Lesion type: [place] artery [place] vs. 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
[2020-01-14] MEDS: CARBOHYDRATES FOR HYPOGLYCEMIA PO PRN ×2 (17:00→17:15)
[2020-01-14] MEDS: ATORVASTATIN 40 MG TAB PO SCH (20:38)
[2020-01-14] MEDS: INSULIN GLARGINE SOLOSTAR 100 UNITS/ML 3 ML PEN SC SCH (21:04)
[2020-01-14] MEDS: SITagliptin PHOSPHATE 25 MG TAB PO SCH (22:06)
[2020-01-15 04:47] LABS: Basophils # (auto) 0.01 K/uL (0-0.2); Basophils % (auto) 0.1 %; Hematocrit (blood only) 36.8 % (42-52); Hemoglobin 13.1 g/dL (14.0-18.0); Immature Granulocytes # (auto) 0.05 K/uL (0.00-0.02); Immature Granulocytes % (auto) 0.5 %; Lymphocytes % (auto) 7.7 %; Mean Corpuscular Hemoglobin 32.3 pg (25-34); Mean Corpuscular Hgb Conc 35.6 g/dL (32-36); Mean Corpuscular Volume 90.9 fL (80-100); Mean Platelet Volume 10.2 fL (7.4-10.4); Monocytes # (auto) 0.89 K/uL (0.11-0.59); Monocytes % (auto) 8.5 %; Neutrophils # (auto) 8.69 K/uL (1.4-6.5); Neutrophils % (auto) 83.2 %; Platelet Count 204 K/uL (130-400); RDW Coefficient of Variation 13.8 % (11.5-14.5); RDW Standard Deviation 45.5 fL (36.4-46.3); Red Blood Count 4.05 M/uL (4.7-6.1); White Blood Count 10.44 K/uL (4.8-10.8)
[2020-01-15] MEDS: DOXYCYCLINE HYCLATE 100 MG in DEXTROSE 5% 100 ML IV SCH ×3 (08:00→22:41)
[2020-01-15] MEDS ORDERED: ALBUTEROL HFA 8 GM INHALER INH SCH (08:55)
[2020-01-15] MEDS ORDERED: ALBUTEROL HFA 8 GM INHALER INH PRN (08:55)
[2020-01-15 17:23] LABS: Albumin Globulin Ratio 0.7 (0.9-2); Albumin Level 2.7 gm/dl (3.4-5.0); Calcium 8.9 mg/dl (8.5-10.1); Creatinine Clr Calc Pharmacy 40.5 ml/min; Est GFR (African American) 53.4; Globulin 4.1 gm/dl (2.5-4.0); Magnesium 1.9 mg/dl (1.8-2.4); Phosphorus 1.9 mg/dl (2.5-4.9); Potassium 3.7 mmol/L (3.5-5.1); Total Protein 6.8 gm/dl (6.4-8.2)
[2020-01-15] MEDS: carvediloL 25 MG TAB PO SCH ×2 (17:32→22:29)
[2020-01-15] MEDS: ENOXAPARIN INJ 30 MG/0.3 ML SYR SQ SCH ×2 (17:33→22:30)
[2020-01-15] MEDS: FAMOTIDINE 20 MG in SYRINGE 3 ML IV SCH ×2 (17:33→22:41)
[2020-01-15] MEDS: NICOTINE 14 MG/24 HR PATCH TD SCH (17:33)
[2020-01-15] MEDS: PANTOprazole 40 MG TAB PO SCH ×2 (17:33→22:30)
[2020-01-15] MEDS: dexAMETHasone 6 MG in SYRINGE 0 ML IV SCH (17:33)
[2020-01-15] MEDS: CEFEPIME 2,000 MG in SYRINGE 0 ML IV SCH (17:34)
[2020-01-15] MEDS: ASPIRIN 81 MG ECTAB PO SCH (17:34)
[2020-01-15] MEDS: INSULIN HUMAN NPH SC SCH (17:46)
[2020-01-15] MEDS ORDERED: guaiFENesin/DEXTROM SYRUP 200MG/20MG 10ML UDC PO PRN (17:47)
[2020-01-15] MEDS: INSULIN ASPART 100 UNITS/ML 3 ML PEN SC SCH ×4 (18:10→23:06)
--- NOTE | 2020-01-15 21:45 | Hospitalist Progress Note ---
Date of Service January 15, 2020 Assessment & Plan (1) Pneumonia due to COVID-19 virus: Chest x-ray findings upon admission have progressed significantly since his previous hospital stay a few days ago. He does not clinically appear to be in acute CHF. CXR and clinical findings most c/w worsening COVID-19 pneumonia. Procal is modestly elevated thus cannot rule out a concomitant bacterial pneumonia.It is now trending downward after treatment with antibiotics Since he was just hospitalized will need to cover for gram negative pneumonia - thus will continue cefepime. Continue doxy for atypical coverage. With respect to his COVID- he was about 10 days into his illness at the time of admission. Despite such plasma may be of some utility given that he is worsening. Thus, consent for plasma obtained from . -Blood bank states that there is a national shortage of AB plasma and thus still waiting on it -Continue decadron x 10 days. Last dose will be 01/20 -Not a good candidate for remdesivir -- CrCl is nearly <30, and given he is 10+ days out from illness date, will defer on such. -Use O2 to keep sats >92% if needed. He is now requiring 2-3 l nasal cannula intermittently -Follow labs in the morning (2) Acute respiratory failure with hypoxia: As above Supplemental O2 to keep pulse ox greater than 8092% (3) Metabolic encephalopathy: 2nd to sepsis and COVID-19. Seems improved but still with intermittent confusion. A little bit worsened this morning when I saw him due to hypoglycemia Supportive care and treatment of sepsis. Loosen insulin regimen as below (4) Sepsis: 2nd to COVID-19. Now resolved Cannot rule out bacterial pneumonia either. Supportive care, IV antibiotics, follow cultures. Ur cx with mixed sam BCxs -NGTD (5) Thrombocytopenia: 2nd to COVID-19. resolved (6) CKD (chronic kidney disease), stage III: Baseline CrCL 30s/40s Creatinine baseline 1.5 Also with a nonanion gap metabolic acidosis secondary to dehydration upon admission which is now resolved Creatinine is down to 1.37 today bmp am Avoid nephrotoxins Holding home Metformin (7) Coronary artery disease: no evidence of ACS, has a history of stents placed in 2019 Denies any chest pain cont COreg Continue statin -continue asa (8) Type 2 diabetes mellitus: pharmacy glycemic consult placed hold oral agents With hyperglycemia here and then severe hypoglycemia again this AM despite lowering dose of Lantus continue insulin as per pHarmacy -Would suggest lowering Lantus to 10 units and lowering NPH to 5 units-discussed with nursing who will facilitate changes with pharmacy (9) Hypertension: Blood pressures mildly elevated continue Coreg (10) Elevated troponin: likely 2nd to myocardial demand ischemia in setting of sepsis/COVID-19 no ischemic sx's to suggest ACS Troponin 0 0.068 on admission and down to 0.035 the next morning No further work-up needed Has known severe CAD continue aspirin and beta-lucille Continue statin (11) Benign localized prostatic hyperplasia with lower urinary tract symptoms (LUTS): not on meds for such at home Watch for urinary retention (12) Chews tobacco regularly: Added on nicotine patch and nicotine gum as needed (13) Ear pain, left: had some left ear pain on 01/13, resolved with tylenol (14) Hypophosphatemia: replace with IV K-Phos again today follow phos in AM (15) DVT prophylaxis: lovenox 30mg BID -- higher dose due to increased risk of VTE in setting of COVID-19 Disposition-continued stay full code Admission and Anticipated Discharge Date Admission Date: January 12, 2020 Subjective Patient was hypoxic this morning in the low 80s and was placed on oxygen with recovery into the low 90s. He also had a low blood sugar this morning of 47. He was not very talkative when I saw him this morning but denied chest pain or shortness of breath, denied abdominal pain. He did not when he eat any of his breakfast. Review of Systems Review of Systems: All systems reviewed & are unremarkable except as noted in HPI & below Physical Exam Constitutional: WD/WN, vitals as above Eyes: + anicteric sclerae Neck: trachea midline, no thyromegaly Respiratory: normal respiratory effort Auscultation: + crackles (At lower lung pro bilaterally); no rhonchi and no wheezes Cardiovascular: RRR, no murmur, no edema Chest (Breasts): Chest: normal inspection of chest Gastrointestinal (Abdomen): normal bowel sounds, soft, nontender, no hepatosplenomegaly Musculoskeletal: Extremities: extremities normal to inspection; no cyanosis and no clubbing Skin: no rashes, warm and dry Neurologic: moves all extremities and awake; no focal motor deficits Psychiatric: Orientation: alert and cooperative Lymphatic: no lymphedema Results & Data Results & Data ([facility]) Laboratory Results 01/15/20 01/15/20 01/15/20 Range/Units 20:19 17:17 11:42 WBC (4.8-10.8) K/uL RBC (4.7-6.1) M/uL Hgb (14.0-18.0) g/dL Hct (42-52) % MCV (80-100) fL MCH (25-34) pg MCHC (32-36) g/dL RDW Std Deviation (36.4-46.3) fL RDW Coeff of Allie (11.5-14.5) % Plt Count (130-400) K/uL MPV (7.4-10.4) fL Immature Gran % (Auto) % Neut % (Auto) % Lymph % (Auto) % [place] % (Auto) % Eos % (Auto) % Baso % (Auto) % Neut # (Auto) (1.4-6.5) K/uL Lymph # (Auto) (1.2-3.4) K/uL [place] # (Auto) (0.11-0.59) K/uL Eos # (Auto) (0-0.5) K/uL Baso # (Auto) (0-0.2) K/uL Immature Gran # (Auto) (0.00-0.02) K/uL Sodium (136-145) mmol/L Potassium (3.5-5.1) mmol/L Chloride (98-107) mmol/L Carbon Dioxide (21-32) mmol/L Anion Gap (3-11) BUN (7-18) mg/dl Creatinine (0.6-1.4) mg/dl Est Cr Clr Drug Dosing ml/min Est GFR ( Amer) Est GFR (Non-Af Amer) BUN/Creatinine Ratio (10-20) Glucose (70-99) mg/dl POC Glucose 121 H 106 H 100 H (70-99) mg/dl Calcium (8.5-10.1) mg/dl Phosphorus (2.5-4.9) mg/dl Magnesium (1.8-2.4) mg/dl Total Bilirubin (0.2-1) mg/dl AST (15-37) U/L ALT (12-78) U/L Alkaline Phosphatase (45-117) U/L Total Protein (6.4-8.2) gm/dl Albumin (3.4-5.0) gm/dl Globulin (2.5-4.0) gm/dl Albumin/Globulin Ratio (0.9-2) Procalcitonin (0-0.5) ng/ml 01/15/20 01/15/20 01/15/20 Range/Units 04:28 04:27 04:27 WBC 10.44 (4.8-10.8) K/uL RBC 4.05 L (4.7-6.1) M/uL Hgb 13.1 L (14.0-18.0) g/dL Hct 36.8 L (42-52) % MCV 90.9 (80-100) fL MCH 32.3 (25-34) pg MCHC 35.6 (32-36) g/dL RDW Std Deviation 45.5 (36.4-46.3) fL RDW Coeff of Allie 13.8 (11.5-14.5) % Plt Count 204 (130-400) K/uL MPV 10.2 (7.4-10.4) fL Immature Gran % (Auto) 0.5 % Neut % (Auto) 83.2 % Lymph % (Auto) 7.7 % [place] % (Auto) 8.5 % Eos % (Auto) 0.0 % Baso % (Auto) 0.1 % Neut # (Auto) 8.69 H (1.4-6.5) K/uL Lymph # (Auto) 0.80 L (1.2-3.4) K/uL [place] # (Auto) 0.89 H (0.11-0.59) K/uL Eos # (Auto) 0.00 (0-0.5) K/uL Baso # (Auto) 0.01 (0-0.2) K/uL Immature Gran # (Auto) 0.05 H (0.00-0.02) K/uL Sodium 140 (136-145) mmol/L Potassium 3.7 (3.5-5.1) mmol/L Chloride 110 H (98-107) mmol/L Carbon Dioxide 24 (21-32) mmol/L Anion Gap 6.0 (3-11) BUN 26 H (7-18) mg/dl Creatinine 1.37 (0.6-1.4) mg/dl Est Cr Clr Drug Dosing 40.5 ml/min Est GFR ( Amer) 53.4 Est GFR (Non-Af Amer) 46.0 BUN/Creatinine Ratio 19.0 (10-20) Glucose 47 L* (70-99) mg/dl POC Glucose (70-99) mg/dl Calcium 8.9 (8.5-10.1) mg/dl Phosphorus 1.9 L (2.5-4.9) mg/dl Magnesium 1.9 (1.8-2.4) mg/dl Total Bilirubin 1.0 (0.2-1) mg/dl AST 88 H (15-37) U/L ALT 61 (12-78) U/L Alkaline Phosphatase 87 (45-117) U/L Total Protein 6.8 (6.4-8.2) gm/dl Albumin 2.7 L (3.4-5.0) gm/dl Globulin 4.1 H (2.5-4.0) gm/dl Albumin/Globulin Ratio 0.7 L (0.9-2) Procalcitonin 0.43 (0-0.5) ng/ml Blood cultures-no growth to date Urine culture-mixed sam PG Care Time/CCT Total # of Minutes Spent Total Time Spent with Patient: Total time spent is greater than 50% in coordination of care (as documented) at patient's floor/unit and/or counseling patient: Coding Level of Care Code 77622 Subseq Hosp Care Lvl 3 Diagnoses Pneumonia due to COVID-19 virus U07.1; J12.89 Acute respiratory failure with hypoxia J96.01 Metabolic encephalopathy G93.41 Sepsis A41.9 Thrombocytopenia D69.6 CKD (chronic kidney disease), stage III N18.3 Coronary artery disease I25.10 Coronary Disease-Associated Artery/Lesion type: [place] artery [place] vs. transplanted heart: [place] heart Associated angina: without angina Type 2 diabetes mellitus E11.22; N18.3 Diabetes mellitus long-term insulin use: without director long term care use Diabetes mellitus complication status: with kidney complications Diabetes mellitus complication detail: with chronic kidney disease Chronic kidney disease stage: stage 3 (moderate) Hypertension I10 Hypertension type: essential hypertension Elevated troponin R77.8 Benign localized prostatic hyperplasia with lower urinary tract symptoms (LUTS) N40.1 Chews tobacco regularly Z72.0 Ear pain, left H92.02 Hypophosphatemia E83.39 DVT prophylaxis Z29.9 (1) Coronary artery disease Coronary Disease-Associated Artery/Lesion type: [place] artery [place] vs. transplanted heart: [place] heart Associated angina: without angina Qualified Code(s): I25.10 - Atherosclerotic heart disease of [place] coronary artery without angina pectoris (2) Type 2 diabetes mellitus Diabetes mellitus long-term insulin use: without director long term care use Diabetes mellitus complication status: with kidney complications Diabetes mellitus complication detail: with chronic kidney disease Chronic kidney disease stage: stage 3 (moderate) Qualified Code(s): E11.22 - Type 2 diabetes mellitus with diabetic chronic kidney disease; N18.3 - Chronic kidney disease, stage 3 (moderate) (3) Hypertension Hypertension type: essential hypertension Qualified Code(s): I10 - Essential (primary) hypertension
[2020-01-15] MEDS ORDERED: POTASSIUM PHOS 3 MMOL/1 ML INFUSION IV STA (21:46)
[2020-01-15] MEDS ORDERED: POTASSIUM PHOSPHATE 21 MMOL in SODIUM CHLORIDE 0.9% 500 ML IV ONE (22:00)
[2020-01-15] MEDS: ATORVASTATIN 40 MG TAB PO SCH (22:31)
[2020-01-15] MEDS: SITagliptin PHOSPHATE 25 MG TAB PO SCH (22:40)
[2020-01-15] MEDS: INSULIN GLARGINE SOLOSTAR 100 UNITS/ML 3 ML PEN SC SCH (23:03)
[2020-01-16] MEDS: CEFEPIME 2,000 MG in SYRINGE 0 ML IV SCH ×3 (00:01→21:26)
[2020-01-16] MEDS: DOXYCYCLINE HYCLATE 100 MG in DEXTROSE 5% 100 ML IV SCH ×3 (04:36→21:16)
[2020-01-16 06:43] LABS: Basophils # (auto) 0.01 K/uL (0-0.2); Basophils % (auto) 0.1 %; Eosinophils # (auto) 0.01 K/uL (0-0.5); Eosinophils % (auto) 0.1 %; Hematocrit (blood only) 38.6 % (42-52); Hemoglobin 13.6 g/dL (14.0-18.0); Immature Granulocytes # (auto) 0.02 K/uL (0.00-0.02); Immature Granulocytes % (auto) 0.2 %; Lymphocytes # (auto) 0.66 K/uL (1.2-3.4); Lymphocytes % (auto) 6.9 %; Mean Corpuscular Hemoglobin 31.9 pg (25-34); Mean Corpuscular Hgb Conc 35.2 g/dL (32-36); Mean Corpuscular Volume 90.6 fL (80-100); Mean Platelet Volume 10.1 fL (7.4-10.4); Monocytes # (auto) 1.11 K/uL (0.11-0.59); Monocytes % (auto) 11.5 %; Neutrophils # (auto) 7.81 K/uL (1.4-6.5); Neutrophils % (auto) 81.2 %; Platelet Count 227 K/uL (130-400); RDW Coefficient of Variation 13.8 % (11.5-14.5); RDW Standard Deviation 45.7 fL (36.4-46.3); Red Blood Count 4.26 M/uL (4.7-6.1); White Blood Count 9.62 K/uL (4.8-10.8)
[2020-01-16 07:13] LABS: Albumin Level 2.6 gm/dl (3.4-5.0); BUN Creatinine Ratio 20.9 (10-20); C Reactive Protein 7.38 mg/dl (0-0.29); Calcium 9.1 mg/dl (8.5-10.1); Est GFR (African American) 57.4; Est GFR (Non-African American) 49.5; Magnesium 1.8 mg/dl (1.8-2.4)
[2020-01-16 07:27] LABS: Albumin Globulin Ratio 0.6 (0.9-2); Globulin 4.4 gm/dl (2.5-4.0)
[2020-01-16 09:18] LABS: Phosphorus 3.1 mg/dl (2.5-4.9)
[2020-01-16] MEDS: ASPIRIN 81 MG ECTAB PO SCH ×2 (09:39→12:08)
[2020-01-16] MEDS: carvediloL 25 MG TAB PO SCH ×3 (09:40→21:19)
[2020-01-16] MEDS: ENOXAPARIN INJ 30 MG/0.3 ML SYR SQ SCH ×2 (09:41→21:38)
[2020-01-16] MEDS: NICOTINE 14 MG/24 HR PATCH TD SCH (09:41)
[2020-01-16] MEDS: FAMOTIDINE 20 MG in SYRINGE 3 ML IV SCH ×2 (09:42→21:21)
[2020-01-16] MEDS: PANTOprazole 40 MG TAB PO SCH ×3 (09:43→21:19)
[2020-01-16] MEDS: dexAMETHasone 6 MG in SYRINGE 0 ML IV SCH (09:43)
--- NOTE | 2020-01-16 09:59 | Pharmacy Report ---
Pharmacy Glycemic Short Note 2 - Date of Service January 16, 2020 - Glycemic Short BSG Results (Last 24 hours): 01/15/20 01/15/20 01/15/20 04:27 11:42 17:17 Glucose 47 L* POC Glucose 100 H 106 H 01/15/20 01/16/20 01/16/20 20:19 03:42 06:31 Glucose 104 H POC Glucose 121 H 94 01/16/20 09:07 Glucose POC Glucose 104 H OUTPATIENT ANTIDIABETIC REGIMEN: * amaryl, metformin, januvia * HbA1c: 9.7% (11/29/19) ASSESSMENT: 01/15: * BSGs tightly controlled yesterday, 117, 100, 106, and 121 mg/dL * Received 10 units of NPH, 10 units of Lantus, and 0 units of Novolog * Poor appetite yesterday - no prandial insulin required * Fasting BSG of 104 mg/dL this morning * Will continue NPH and lower Lantus scale this evening * Continues on dexamethasone 6 mg IV daily - continue NPH 10 units * Continues on cefepime and doxycycline 01/12: * Patient admitted with COVID pneumonia, type 2 diabetic managed on orals at home. Most recent A1C ~9.7% * Patient started on IV steroids, anticipate BSGs to trend upward. Received total of 76 units of insulin yesterday, of which 40 were basal insulin * Fasting BSG remains elevated - 249 mg/dL, plan to add NPH with dex administration to help with coverage of BSGs throughout the day. Started at lower unit/kg NPH dosing d/t large Lantus dose being given yesterday at HS * Will provide scale for Lantus as HS as baseline patient likely needing insulin d/t A1c elevated PLAN FOR INPATIENT GLYCEMIC CONTROL: * Hold outpatient oral diabetes medications * Basal insulin - continue NPH, decrease Lantus scale * NPH 10 units (~0.1 unit/kg) SC qAM w/ dexamethasone * Lantus scale to provide 5-10 units SC HS (see EHR for details) * Bolus insulin - continue * NovoLog per scale ACHS or Q6hrs while NPO * Goal Range: Low 110 mg/dL - High 140 mg/dL * Correction Factor: 25 mg/dL/unit * Nutritional / Prandial insulin per carb ratio of 1 unit per 8 grams CHO consumed PLAN FOR DISCHARGE: * tbd
[2020-01-16] MEDS: INSULIN ASPART 100 UNITS/ML 3 ML PEN SC SCH ×4 (10:03→20:51)
[2020-01-16] MEDS: INSULIN HUMAN NPH SC SCH (10:04)
[2020-01-16] MEDS ORDERED: haloperidoL 1 MG TAB PO PRN (10:36)
[2020-01-16] MEDS ORDERED: HALOPERIDOL LACTATE 5 MG/ML 1 ML VIAL IM PRN (10:37)
--- NOTE | 2020-01-16 11:53 | XRay Report ---
XR chest 1V portable CLINICAL HISTORY: hypoxia,COVID COMPARISON STUDY: Chest radiograph January 12, 2020. FINDINGS: Lung volumes are mildly diminished. Elevation of the left hemidiaphragm is unchanged. No pn eumothorax or pleural effusion is noted. Cardiomegaly is unchanged. Left lung airspace opacities are similar to prior exam. Right lung airspace opacity has slightly improved. IMPRESSION: Slight improvement in right lung airspace opacities. Otherwise, no significant change in appearance of the chest with moderate focal airspace opacities suggestive of an infectious process. ACT 112: Negative or not required by law. Electronically signed by: Sina Morgan M.D. 01/16/2020 11:52 AM
--- NOTE | 2020-01-16 14:41 | Hospitalist Progress Note ---
Date of Service January 16, 2020 Assessment & Plan (1) Pneumonia due to COVID-19 virus: Chest x-ray findings upon admission have progressed significantly since his previous hospital stay a few days prior He does not clinically appear to be in acute CHF. CXR and clinical findings most c/w worsening COVID-19 pneumonia. Procal is modestly elevated thus cannot rule out a concomitant bacterial pneumonia.It is now trending downward after treatment with antibiotics Oxygen requirement is up slightly today to 4 L He has ongoing acute encephalopathy secondary to Covid/acute illness He has ongoing very poor appetite with very minimal p.o. intake and is refusing his p.o. medications at times ESR and CRP are trending downward today Since he was just hospitalized will need to cover for gram negative pneumonia - thus will continue cefepime. Continue doxy for atypical coverage. With respect to his COVID- he was about 10 days into his illness at the time of admission. Despite such plasma may be of some utility given that he is worsening. Thus, consent for plasma obtained from . -Blood bank states that there is a national shortage of AB plasma and thus still waiting on it-doubt this will be of any utility at this point -Continue decadron x 10 days. Last dose will be 01/20 -Not a good candidate for remdesivir -- CrCl is nearly <30, and given he is 10+ days out from illness date, will defer on such. -Continue O2 to keep sats >92% -Follow labs in the morning Follow chest x-ray to resolution (2) Acute respiratory failure with hypoxia: As above Continue supplemental O2 to keep pulse ox greater than 92% Give IV Ativan 0.25 mg IV every 6 hours as needed anxiety Give Zyprexa p.o. or IM Haldol as needed for agitation especially if pulling oxygen off his face Continue one-on-one sitter and soft mitts to prevent him from pulling oxygen off his face (3) Metabolic encephalopathy: As above, 2nd to sepsis and COVID-19. Continue treatment with oxygen, redirection, supportive care (4) Sepsis: 2nd to COVID-19. Now resolved Cannot rule out bacterial pneumonia either. Supportive care, IV antibiotics, follow cultures. Ur cx with mixed sam BCxs -NGTD (5) Thrombocytopenia: 2nd to COVID-19. resolved (6) CKD (chronic kidney disease), stage III: Baseline CrCL 30s/40s Creatinine baseline 1.5 Also with a nonanion gap metabolic acidosis secondary to dehydration which was resolved but now has returned Creatinine is down to 1.29 today bmp am Avoid nephrotoxins Holding home Metformin -Start gentle IV fluids with normal saline 70 mL/h for very poor p.o. intake (7) Coronary artery disease: no evidence of ACS, has a history of stents placed in 2019 Denies any chest pain cont COreg Continue statin -continue asa (8) Type 2 diabetes mellitus: pharmacy glycemic consult placed holding oral agents With hyperglycemia here and then severe hypoglycemia at times Very poor appetite at this point continue insulin as per pHarmacy (9) Hypertension: Blood pressures mildly elevated continue Coreg (10) Elevated troponin: likely 2nd to myocardial demand ischemia in setting of sepsis/COVID-19 no ischemic sx's to suggest ACS Troponin 0 0.068 on admission and down to 0.035 the next morning No further work-up needed Has known severe CAD continue aspirin and beta-lucille Continue statin (11) Benign localized prostatic hyperplasia with lower urinary tract symptoms (LUTS): not on meds for such at home Now has Vo catheter in place (12) Chews tobacco regularly: Added on nicotine patch and nicotine gum as needed (13) Ear pain, left: had some left ear pain on 01/13, resolved with tylenol (14) Hypophosphatemia: Replaced and resolved follow phos in AM (15) GERD (gastroesophageal reflux disease): Continue PPI and added Pepcid in the setting of corticosteroids for Covid (16) DVT prophylaxis: lovenox 30mg BID -- higher dose due to increased risk of VTE in setting of COVID-19 Disposition-continued stay full code Admission and Anticipated Discharge Date Admission Date: January 12, 2020 Subjective Patient was noted to be quite restless and agitated earlier this morning and elias contacted me as he continued to pull his oxygen off his face and desaturate. Soft meds were ordered to keep him from pulling his oxygen off his face. A one-on-one sitter was placed in the room to keep him safe. Eventually he fell asleep and when I saw him I did not wake him up. He appeared comfortable. Nursing also reports that he did not want to eat again at all today. I discussed his care with his who was in agreeable with giving medication for agitation and anxiety as needed even if it causes sedation. Review of Systems Review of Systems: Unobtainable due to cognitive status Physical Exam Constitutional: WD/WN, vitals as above Neck: trachea midline, no thyromegaly Respiratory: normal respiratory effort Auscultation: + crackles (At lower lung pro bilaterally); no rhonchi and no wheezes Cardiovascular: RRR, no murmur, no edema Chest (Breasts): Chest: normal inspection of chest Gastrointestinal (Abdomen): normal bowel sounds, soft, nontender, no hepatosplenomegaly Musculoskeletal: Extremities: extremities normal to inspection; no cyanosis and no clubbing Skin: no rashes, warm and dry Lymphatic: no lymphedema Results & Data Results & Data ([facility]) Vital Signs (Past 12 Hours) Vital Signs Temp Pulse Resp BP BP Pulse Ox 01/16/20 12:15 108 H 94 01/16/20 09:50 88 L 01/16/20 07:25 36.8 C 88 20 156/97 H 94 01/16/20 05:10 36.6 C 102 H 16 142/86 H 91 01/16/20 04:32 101 H 22 148/83 H 90 Laboratory Results 01/16/20 01/16/20 01/16/20 Range/Units 20:46 17:38 11:55 WBC (4.8-10.8) K/uL RBC (4.7-6.1) M/uL Hgb (14.0-18.0) g/dL Hct (42-52) % MCV (80-100) fL MCH (25-34) pg MCHC (32-36) g/dL RDW Std Deviation (36.4-46.3) fL RDW Coeff of Allie (11.5-14.5) % Plt Count (130-400) K/uL MPV (7.4-10.4) fL Immature Gran % (Auto) % Neut % (Auto) % Lymph % (Auto) % [place] % (Auto) % Eos % (Auto) % Baso % (Auto) % Neut # (Auto) (1.4-6.5) K/uL Lymph # (Auto) (1.2-3.4) K/uL [place] # (Auto) (0.11-0.59) K/uL Eos # (Auto) (0-0.5) K/uL Baso # (Auto) (0-0.2) K/uL Immature Gran # (Auto) (0.00-0.02) K/uL ESR (0-14) mm/hr Sodium (136-145) mmol/L Potassium (3.5-5.1) mmol/L Chloride (98-107) mmol/L Carbon Dioxide (21-32) mmol/L Anion Gap (3-11) BUN (7-18) mg/dl Creatinine (0.6-1.4) mg/dl Est Cr Clr Drug Dosing ml/min Est GFR ( Amer) Est GFR (Non-Af Amer) BUN/Creatinine Ratio (10-20) Glucose (70-99) mg/dl POC Glucose 136 H 140 H 134 H (70-99) mg/dl Calcium (8.5-10.1) mg/dl Phosphorus (2.5-4.9) mg/dl Magnesium (1.8-2.4) mg/dl Total Bilirubin (0.2-1) mg/dl AST (15-37) U/L ALT (12-78) U/L Alkaline Phosphatase (45-117) U/L Total Creatine Kinase (39-308) U/L C-Reactive Protein (0-0.29) mg/dl Total Protein (6.4-8.2) gm/dl Albumin (3.4-5.0) gm/dl Globulin (2.5-4.0) gm/dl Albumin/Globulin Ratio (0.9-2) Specimen Hemolysis 01/16/20 01/16/20 01/16/20 Range/Units 09:07 06:31 06:31 WBC (4.8-10.8) K/uL RBC (4.7-6.1) M/uL Hgb (14.0-18.0) g/dL Hct (42-52) % MCV (80-100) fL MCH (25-34) pg MCHC (32-36) g/dL RDW Std Deviation (36.4-46.3) fL RDW Coeff of Allie (11.5-14.5) % Plt Count (130-400) K/uL MPV (7.4-10.4) fL Immature Gran % (Auto) % Neut % (Auto) % Lymph % (Auto) % [place] % (Auto) % Eos % (Auto) % Baso % (Auto) % Neut # (Auto) (1.4-6.5) K/uL Lymph # (Auto) (1.2-3.4) K/uL [place] # (Auto) (0.11-0.59) K/uL Eos # (Auto) (0-0.5) K/uL Baso # (Auto) (0-0.2) K/uL Immature Gran # (Auto) (0.00-0.02) K/uL ESR 31 H (0-14) mm/hr Sodium 140 (136-145) mmol/L Potassium 4.0 (3.5-5.1) mmol/L Chloride 111 H (98-107) mmol/L Carbon Dioxide 19 L (21-32) mmol/L Anion Gap 10.0 (3-11) BUN 27 H (7-18) mg/dl Creatinine 1.29 (0.6-1.4) mg/dl Est Cr Clr Drug Dosing 43.0 ml/min Est GFR ( Amer) 57.4 Est GFR (Non-Af Amer) 49.5 BUN/Creatinine Ratio 20.9 H (10-20) Glucose 104 H (70-99) mg/dl POC Glucose 104 H (70-99) mg/dl Calcium 9.1 (8.5-10.1) mg/dl Phosphorus 3.1 D (2.5-4.9) mg/dl Magnesium 1.8 (1.8-2.4) mg/dl Total Bilirubin 1.0 (0.2-1) mg/dl AST 64 H (15-37) U/L ALT 53 (12-78) U/L Alkaline Phosphatase 93 (45-117) U/L Total Creatine Kinase 155 (39-308) U/L C-Reactive Protein 7.38 H (0-0.29) mg/dl Total Protein 7.0 (6.4-8.2) gm/dl Albumin 2.6 L (3.4-5.0) gm/dl Globulin 4.4 H (2.5-4.0) gm/dl Albumin/Globulin Ratio 0.6 L (0.9-2) Specimen Hemolysis 01/16/20 01/16/20 Range/Units 06:31 03:42 WBC 9.62 (4.8-10.8) K/uL RBC 4.26 L (4.7-6.1) M/uL Hgb 13.6 L (14.0-18.0) g/dL Hct 38.6 L (42-52) % MCV 90.6 (80-100) fL MCH 31.9 (25-34) pg MCHC 35.2 (32-36) g/dL RDW Std Deviation 45.7 (36.4-46.3) fL RDW Coeff of Allie 13.8 (11.5-14.5) % Plt Count 227 (130-400) K/uL MPV 10.1 (7.4-10.4) fL Immature Gran % (Auto) 0.2 % Neut % (Auto) 81.2 % Lymph % (Auto) 6.9 % [place] % (Auto) 11.5 % Eos % (Auto) 0.1 % Baso % (Auto) 0.1 % Neut # (Auto) 7.81 H (1.4-6.5) K/uL Lymph # (Auto) 0.66 L (1.2-3.4) K/uL [place] # (Auto) 1.11 H (0.11-0.59) K/uL Eos # (Auto) 0.01 (0-0.5) K/uL Baso # (Auto) 0.01 (0-0.2) K/uL Immature Gran # (Auto) 0.02 (0.00-0.02) K/uL ESR (0-14) mm/hr Sodium (136-145) mmol/L Potassium (3.5-5.1) mmol/L Chloride (98-107) mmol/L Carbon Dioxide (21-32) mmol/L Anion Gap (3-11) BUN (7-18) mg/dl Creatinine (0.6-1.4) mg/dl Est Cr Clr Drug Dosing ml/min Est GFR ( Amer) Est GFR (Non-Af Amer) BUN/Creatinine Ratio (10-20) Glucose (70-99) mg/dl POC Glucose 94 (70-99) mg/dl Calcium (8.5-10.1) mg/dl Phosphorus (2.5-4.9) mg/dl Magnesium (1.8-2.4) mg/dl Total Bilirubin (0.2-1) mg/dl AST (15-37) U/L ALT (12-78) U/L Alkaline Phosphatase (45-117) U/L Total Creatine Kinase (39-308) U/L C-Reactive Protein (0-0.29) mg/dl Total Protein (6.4-8.2) gm/dl Albumin (3.4-5.0) gm/dl Globulin (2.5-4.0) gm/dl Albumin/Globulin Ratio (0.9-2) Specimen Hemolysis PG Care Time/CCT Total # of Minutes Spent Total Time Spent with Patient: Total time spent is greater than 50% in coordination of care (as documented) at patient's floor/unit and/or counseling patient: Coding Level of Care Code 61480 Subseq Hosp Care Lvl 3 Diagnoses Pneumonia due to COVID-19 virus U07.1; J12.89 Acute respiratory failure with hypoxia J96.01 Metabolic encephalopathy G93.41 Sepsis A41.9 Thrombocytopenia D69.6 CKD (chronic kidney disease), stage III N18.3 Coronary artery disease I25.10 Associated angina: without angina Coronary Disease-Associated Artery/Lesion type: [place] artery [place] vs. 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 owner operator truck driver use Hypertension I10 Hypertension type: essential hypertension Elevated troponin R77.8 Benign localized prostatic hyperplasia with lower urinary tract symptoms (LUTS) N40.1 Chews tobacco regularly Z72.0 Ear pain, left H92.02 Hypophosphatemia E83.39 GERD (gastroesophageal reflux disease) K21.9 DVT prophylaxis Z29.9 (1) Type 2 diabetes mellitus Chronic kidney disease stage: stage 3 (moderate) Diabetes mellitus complication detail: with chronic kidney disease Diabetes mellitus complication status: with kidney complications 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 transplanted heart: [place] heart Qualified Code(s): I25.10 - Atherosclerotic heart disease of [place] coronary artery without angina pectoris (3) Hypertension Hypertension type: essential hypertension Qualified Code(s): I10 - Essential (primary) hypertension
[2020-01-16] MEDS: SODIUM CHLORIDE 0.9% 1000ML 1,000 ML IV SCH (16:50)
[2020-01-16] MEDS: LORazepam 0.25 MG/0.5 ML VIAL IV PRN (19:05)
[2020-01-16] MEDS: INSULIN GLARGINE SOLOSTAR 100 UNITS/ML 3 ML PEN SC SCH (20:54)
[2020-01-16] MEDS: ATORVASTATIN 40 MG TAB PO SCH (21:19)
[2020-01-17] MEDS: LORazepam 0.25 MG/0.5 ML VIAL IV PRN (02:01)
[2020-01-17 06:34] LABS: Basophils # (auto) 0.02 K/uL (0-0.2); Basophils % (auto) 0.2 %; Eosinophils # (auto) 0.02 K/uL (0-0.5); Eosinophils % (auto) 0.2 %; Hemoglobin 13.6 g/dL (14.0-18.0); Immature Granulocytes # (auto) 0.05 K/uL (0.00-0.02); Immature Granulocytes % (auto) 0.6 %; Lymphocytes # (auto) 0.79 K/uL (1.2-3.4); Lymphocytes % (auto) 9.8 %; Mean Corpuscular Volume 94.1 fL (80-100); Mean Platelet Volume 10.4 fL (7.4-10.4); Monocytes # (auto) 1.33 K/uL (0.11-0.59); Monocytes % (auto) 16.5 %; Neutrophils # (auto) 5.85 K/uL (1.4-6.5); Neutrophils % (auto) 72.7 %; Nucleated RBC # (auto) 0.03 K/uL (0-0); Nucleated RBC % (auto) 0.4 %; Platelet Count 241 K/uL (130-400); RDW Coefficient of Variation 14.1 % (11.5-14.5); RDW Standard Deviation 48.1 fL (36.4-46.3); Red Blood Count 4.25 M/uL (4.7-6.1); White Blood Count 8.06 K/uL (4.8-10.8)
[2020-01-17 07:00] LABS: Albumin Level 2.5 gm/dl (3.4-5.0); BUN Creatinine Ratio 24.7 (10-20); Calcium 8.6 mg/dl (8.5-10.1); Creatinine Clr Calc Pharmacy 38.8 ml/min; Est GFR (African American) 50.7; Est GFR (Non-African American) 43.7; Magnesium 2.1 mg/dl (1.8-2.4); Potassium 4.6 mmol/L (3.5-5.1)
[2020-01-17 07:03] LABS: Albumin Globulin Ratio 0.6 (0.9-2); Bilirubin,Total 0.8 mg/dl (0.2-1); Globulin 4.3 gm/dl (2.5-4.0); Phosphorus 3.4 mg/dl (2.5-4.9); Total Protein 6.8 gm/dl (6.4-8.2)
[2020-01-17] MEDS: DOXYCYCLINE HYCLATE 100 MG in DEXTROSE 5% 100 ML IV SCH ×2 (07:51→20:07)
[2020-01-17] MEDS: dexAMETHasone 6 MG in SYRINGE 0 ML IV SCH (07:51)
[2020-01-17] MEDS: FAMOTIDINE 20 MG in SYRINGE 3 ML IV SCH ×3 (07:51→20:58)
[2020-01-17] MEDS: ENOXAPARIN INJ 30 MG/0.3 ML SYR SQ SCH ×2 (07:53→20:06)
[2020-01-17] MEDS: NICOTINE 14 MG/24 HR PATCH TD SCH (08:03)
[2020-01-17] MEDS: hydrALAZINE HCL 20 MG/ML VIAL IV PRN (08:15)
[2020-01-17] MEDS: PANTOprazole 40 MG TAB PO SCH ×3 (08:22→20:34)
[2020-01-17] MEDS: ASPIRIN 81 MG ECTAB PO SCH (08:22)
[2020-01-17] MEDS: carvediloL 25 MG TAB PO SCH ×3 (08:22→20:33)
[2020-01-17] MEDS: INSULIN ASPART 100 UNITS/ML 3 ML PEN SC SCH ×4 (08:32→20:50)
[2020-01-17] MEDS: INSULIN HUMAN NPH SC SCH (08:33)
[2020-01-17] MEDS: SODIUM CHLORIDE 0.9% 1000ML 1,000 ML IV SCH (08:44)
[2020-01-17] MEDS: CEFEPIME 2,000 MG in SYRINGE 0 ML IV SCH ×2 (10:33→21:02)
--- NOTE | 2020-01-17 15:30 | Hospitalist Progress Note ---
Date of Service January 17, 2020 Assessment & Plan (1) Pneumonia due to COVID-19 virus: Chest x-ray findings upon admission have progressed significantly since his previous hospital stay a few days prior He does not clinically appear to be in acute CHF. CXR and clinical findings most c/w worsening COVID-19 pneumonia. Procal is modestly elevated thus cannot rule out a concomitant bacterial pneumonia.It is now trending downward after treatment with antibiotics Oxygen requirement is up slightly today to 5 L He has ongoing acute encephalopathy secondary to Covid/acute illness, oriented to person only today, requiring mitts due to pulling at lines He has ongoing very poor appetite with very minimal p.o. intake and is refusing his p.o. medications at times ESR and CRP are trending downward slowly continue Cefepime and Doxycycline for antibiotic coverage. With respect to his COVID- he was about 10 days into his illness at the time of admission. -Continue decadron x 10 days. Last dose will be 01/20 -Not a good candidate for remdesivir -- CrCl is nearly <30, and given he is 10+ days out from illness date, will defer on such. -Continue O2 to keep sats >92% -Follow labs in the morning repeat portable CXR tomorrow AM (2) Acute respiratory failure with hypoxia: As above Continue supplemental O2 to keep pulse ox greater than 90% Give IV Ativan 0.25 mg IV every 6 hours as needed anxiety Give Zyprexa p.o. or IM Haldol as needed for agitation especially if pulling oxygen off his face Continue one-on-one sitter and soft mitts to prevent him from pulling oxygen off his face up slightly to 5L today, no distress (3) Metabolic encephalopathy: As above, 2nd to sepsis and COVID-19. Continue treatment with oxygen, redirection, supportive care possible that steroids are causing some confusion? however he came in with encephalopathy will continue until 01/20 (4) Sepsis: 2nd to COVID-19. Now resolved Cannot rule out bacterial pneumonia either. Supportive care, IV antibiotics, follow cultures. Ur cx with mixed sam BCxs -NGTD vitals stable, no fever, sepsis resolved (5) Thrombocytopenia: 2nd to COVID-19. resolved (6) CKD (chronic kidney disease), stage III: Baseline CrCL 30s/40s Creatinine baseline 1.5 Also with a nonanion gap metabolic acidosis secondary to dehydration which was resolved but now has returned Creatinine 1.43 today bmp am Avoid nephrotoxins Holding home Metformin stop fluids today, he is adequately hydrated, want lungs on the dry side (7) Coronary artery disease: no evidence of ACS, has a history of stents placed in 2019 Denies any chest pain cont COreg Continue statin -continue asa (8) Type 2 diabetes mellitus: pharmacy glycemic consult placed holding oral agents With hyperglycemia here and then severe hypoglycemia at times Very poor appetite at this point continue insulin as per pHarmacy (9) Hypertension: Blood pressures mildly elevated continue Coreg (10) Elevated troponin: likely 2nd to myocardial demand ischemia in setting of sepsis/COVID-19 no ischemic sx's to suggest ACS Troponin 0 0.068 on admission and down to 0.035 the next morning No further work-up needed Has known severe CAD continue aspirin and beta-lucille Continue statin (11) Benign localized prostatic hyperplasia with lower urinary tract symptoms (LUTS): not on meds for such at home Now has Vo catheter in place (12) Chews tobacco regularly: Added on nicotine patch and nicotine gum as needed (13) Ear pain, left: had some left ear pain on 01/13, resolved with tylenol (14) Hypophosphatemia: Replaced and resolved follow phos in AM (15) GERD (gastroesophageal reflux disease): Continue PPI and added Pepcid in the setting of corticosteroids for Covid (16) DVT prophylaxis: lovenox 30mg BID -- higher dose due to increased risk of VTE in setting of COVID-19 Disposition-continued stay full code Admission and Anticipated Discharge Date Admission Date: January 12, 2020 Subjective patient pleasantly confused, has mitts on due to pulling at lines he does not know why he is in the hospital he is not eating well, stable most of the day on 4L, upped to 5L in the afternoon no respiratory distress at all he is weak reviewed chart and labs will contact family for update Review of Systems Review of Systems: All systems reviewed & are unremarkable except as noted in Subjective Physical Exam Constitutional: well developed, well nourished, + ill appearing and + frail appearing; no acute distress Neck: trachea midline, no thyromegaly Respiratory: + tachypneic; no respiratory distress, no labored breathing and no cough Auscultation: no crackles, no rales, no rhonchi and no wheezes Cardiovascular: RRR, no murmur, no edema Gastrointestinal (Abdomen): normal bowel sounds, soft, nontender, no hepatosplenomegaly Musculoskeletal: Head/Neck/Chest: normocephalic, head atraumatic and neck supple Extremities: extremities normal to inspection and + abnormal strength (generalized weakness) Skin: no rashes, warm and dry Neurologic: CN's II-XI intact bilaterally, moves all extremities, awake and + confused; no focal motor deficits Psychiatric: Orientation: alert, oriented to person and + guarded; + not oriented to place and + not oriented to time Results & Data Results & Data ([facility]) Vital Signs (Past 12 Hours) Vital Signs Temp Pulse Resp BP BP Pulse Ox 01/17/20 15:18 36.7 C 80 19 126/76 90 01/17/20 08:46 16 183/99 H 92 Laboratory Results Laboratory Results - last 24 hr 01/15/20 01/15/20 01/15/20 05:59 06:08 06:30 WBC RBC Hgb Hct MCV MCH MCHC RDW Std Deviation RDW Coeff of Allie Plt Count MPV Immature Gran % (Auto) Neut % (Auto) Lymph % (Auto) [place] % (Auto) Eos % (Auto) Baso % (Auto) Neut # (Auto) Lymph # (Auto) [place] # (Auto) Eos # (Auto) Baso # (Auto) Immature Gran # (Auto) Absolute Nucleated RBC Nucleated RBC % (auto) Sodium Potassium Chloride Carbon Dioxide Anion Gap BUN Creatinine Est Cr Clr Drug Dosing Est GFR ( Amer) Est GFR (Non-Af Amer) BUN/Creatinine Ratio Glucose POC Glucose 52 L* 56 L* 115 H Calcium Phosphorus Magnesium Total Bilirubin AST ALT Alkaline Phosphatase Total Protein Albumin Globulin Albumin/Globulin Ratio 01/15/20 01/16/20 01/16/20 07:36 17:38 20:46 WBC RBC Hgb Hct MCV MCH MCHC RDW Std Deviation RDW Coeff of Allie Plt Count MPV Immature Gran % (Auto) Neut % (Auto) Lymph % (Auto) [place] % (Auto) Eos % (Auto) Baso % (Auto) Neut # (Auto) Lymph # (Auto) [place] # (Auto) Eos # (Auto) Baso # (Auto) Immature Gran # (Auto) Absolute Nucleated RBC Nucleated RBC % (auto) Sodium Potassium Chloride Carbon Dioxide Anion Gap BUN Creatinine Est Cr Clr Drug Dosing Est GFR ( Amer) Est GFR (Non-Af Amer) BUN/Creatinine Ratio Glucose POC Glucose 117 H 140 H 136 H Calcium Phosphorus Magnesium Total Bilirubin AST ALT Alkaline Phosphatase Total Protein Albumin Globulin Albumin/Globulin Ratio 01/17/20 01/17/20 01/17/20 05:54 05:54 08:15 WBC 8.06 RBC 4.25 L Hgb 13.6 L Hct 40.0 L MCV 94.1 MCH 32.0 MCHC 34.0 RDW Std Deviation 48.1 H RDW Coeff of Allie 14.1 Plt Count 241 MPV 10.4 Immature Gran % (Auto) 0.6 Neut % (Auto) 72.7 Lymph % (Auto) 9.8 [place] % (Auto) 16.5 Eos % (Auto) 0.2 Baso % (Auto) 0.2 Neut # (Auto) 5.85 Lymph # (Auto) 0.79 L [place] # (Auto) 1.33 H Eos # (Auto) 0.02 Baso # (Auto) 0.02 Immature Gran # (Auto) 0.05 H Absolute Nucleated RBC 0.03 H Nucleated RBC % (auto) 0.4 Sodium 143 Potassium 4.6 Chloride 115 H Carbon Dioxide 20 L Anion Gap 8.0 BUN 35 H Creatinine 1.43 H Est Cr Clr Drug Dosing 38.8 Est GFR ( Amer) 50.7 Est GFR (Non-Af Amer) 43.7 BUN/Creatinine Ratio 24.7 H Glucose 110 H POC Glucose 165 H Calcium 8.6 Phosphorus 3.4 Magnesium 2.1 Total Bilirubin 0.8 AST 35 ALT 44 Alkaline Phosphatase 84 Total Protein 6.8 Albumin 2.5 L Globulin 4.3 H Albumin/Globulin Ratio 0.6 L 01/17/20 12:07 WBC RBC Hgb Hct MCV MCH MCHC RDW Std Deviation RDW Coeff of Allie Plt Count MPV Immature Gran % (Auto) Neut % (Auto) Lymph % (Auto) [place] % (Auto) Eos % (Auto) Baso % (Auto) Neut # (Auto) Lymph # (Auto) [place] # (Auto) Eos # (Auto) Baso # (Auto) Immature Gran # (Auto) Absolute Nucleated RBC Nucleated RBC % (auto) Sodium Potassium Chloride Carbon Dioxide Anion Gap BUN Creatinine Est Cr Clr Drug Dosing Est GFR ( Amer) Est GFR (Non-Af Amer) BUN/Creatinine Ratio Glucose POC Glucose 143 H Calcium Phosphorus Magnesium Total Bilirubin AST ALT Alkaline Phosphatase Total Protein Albumin Globulin Albumin/Globulin Ratio Medications Administered Current Inpatient Medications Acetaminophen (Acetaminophen 325 Mg Tab) 650 mg PO Q4H PRN PRN Reason: Pain Stop: 02/12/20 18:03 Albuterol (Albuterol Hfa 8 Gm Inhaler) 2 puffs INH Q6H PRN PRN Reason: Cough Stop: 02/14/20 08:54 Aspirin (Aspirin 81 Mg Ectab) 81 mg PO QAM [facility] Stop: 02/12/20 21:59 Last Admin: 01/17/20 08:22 Dose: 81 mg Documented by: Atorvastatin Calcium (Atorvastatin 40 Mg Tab) 80 mg PO HS [facility] Stop: 02/13/20 20:59 Last Admin: 01/16/20 21:19 Dose: Not Given Documented by: Carvedilol (Carvedilol 25 Mg Tab) 25 mg PO BID@0800,2000 [facility] Stop: 02/13/20 07:59 Last Admin: 01/17/20 08:22 Dose: 25 mg Documented by: Dextrose (Dextrose 50% 50 Ml Syringe) 25 - 50 ml IV UD PRN; Protocol PRN Reason: Hypoglycemia Protocol Stop: 02/13/20 11:44 Enoxaparin Sodium (Enoxaparin Inj 30 Mg/0.3 Ml Syr) 30 mg SQ Q12H [facility] Stop: 02/11/20 20:59 Last Admin: 01/17/20 07:53 Dose: 30 mg Documented by: Glucagon (Glucagon For Inj 1 Mg Vial) 1 mg IM UD PRN; Protocol PRN Reason: Hypoglycemia Protocol Stop: 02/13/20 11:44 Glucose (Glucose 40% Gel 15 Gm Tube) 15 - 30 gm PO UD PRN; Protocol PRN Reason: Hypoglycemia Protocol Stop: 02/13/20 11:44 Glucose (Glucose 10 Tabs/Tube) 4 - 8 tabs PO UD PRN; Protocol PRN Reason: Hypoglycemia Protocol Stop: 02/13/20 11:44 Guaifenesin/Dextromethorphan (Guaifenesin/Dextrom Syrup 200mg/20mg 10ml Udc) 20 ml PO Q6H PRN PRN Reason: Cough Stop: 02/14/20 17:46 Haloperidol (Haloperidol 1 Mg Tab) 1 mg PO Q8H PRN PRN Reason: Agitation Stop: 02/15/20 10:35 Haloperidol Lactate (Haloperidol Lactate 5 Mg/Ml 1 Ml Vial) 2.5 mg IM Q12 PRN PRN Reason: Agitation Stop: 02/15/20 10:36 Hydralazine HCl (Hydralazine Hcl 20 Mg/Ml Vial) 10 mg IV Q8H PRN PRN Reason: SBP>180 Stop: 02/13/20 20:55 Last Admin: 01/17/20 08:15 Dose: 10 mg Documented by: Cefepime HCl 2,000 mg/ Syringe 20 mls @ 5 mls/min IV Q12H [facility]; Protocol Stop: 01/19/20 21:59 Last Admin: 01/17/20 10:33 Dose: 5 mls/min Documented by: Doxycycline Hyclate 100 mg/ (Dextrose) 110 mls @ 50 mls/hr IV Q12H [facility] Stop: 01/19/20 19:59 Last Infusion: 01/17/20 13:38 Dose: Infused Documented by: Famotidine 20 mg/ Syringe 5 mls @ 2.5 mls/min IV Q12H [facility] Stop: 02/11/20 19:59 Last Admin: 01/17/20 07:51 Dose: 2.5 mls/min Documented by: Dexamethasone 6 mg/ Syringe 1.5 mls @ 1 mls/min IV DAILY [facility] Stop: 01/21/20 09:02 Last Admin: 01/17/20 07:51 Dose: 1 mls/min Documented by: Lorazepam (Ativan) 0.25 mg in 0.5 mls @ 0.5 mls/min IV Q4H PRN PRN Reason: anxiety Stop: 02/15/20 14:39 Last Admin: 01/17/20 02:01 Dose: 0.5 mls/min Documented by: Insulin Aspart (Insulin Aspart 100 Units/Ml 3 Ml Pen) 0 units SC [facility] Stop: 02/11/20 19:59 Last Admin: 01/17/20 13:18 Dose: 2 units Documented by: Insulin Glargine (Insulin Glargine Solostar 100 Units/Ml 3 Ml Pen) 0 units SC [facility]; Protocol Stop: 02/12/20 20:59 Last Admin: 01/16/20 20:54 Dose: 5 units Documented by: Insulin Human NPH (Insulin Human Nph) 10 units SC DAILY@0900 [facility] Stop: 02/14/20 08:59 Last Admin: 01/17/20 08:33 Dose: 10 units Documented by: Miscellaneous (Remove Nicoderm Patch) 1 ea N/A DAILY@0759 [facility] Stop: 02/13/20 07:58 Last Admin: 01/17/20 08:15 Dose: 1 ea Documented by: Miscellaneous (Carbohydrates For Hypoglycemia ) 15 - 30 gm PO UD PRN PRN Reason: Hypoglycemia Treatment Stop: 02/13/20 11:44 Last Admin: 01/14/20 17:15 Dose: 15 gm Documented by: Miscellaneous Information (Pharmacy Glycemic Mgmt Consult) 1 ea N/A UD PRN PRN Reason: Consult Stop: 02/11/20 19:57 Miscellaneous Information (Cefepime Consult Active) 1 ea N/A UD PRN PRN Reason: Consult Stop: 02/11/20 19:57 Nicotine (Nicotine 14 Mg/24 Hr Patch) 14 mg TD QAM@0800 [facility] Stop: 02/13/20 07:59 Last Admin: 01/17/20 08:03 Dose: 14 mg Documented by: Nicotine Polacrilex (Nicotine Polacrilex 2 Mg Gum) 1 piece MT TID PRN PRN Reason: nicotine craving Stop: 02/12/20 16:23 Ondansetron HCl (Ondansetron Inj 2 Mg/Ml 2 Ml Vial) 4 mg IV Q6H PRN PRN Reason: Nausea Stop: 02/11/20 19:06 Pantoprazole Sodium (Pantoprazole 40 Mg Tab) 40 mg PO BID@0800,1999 [facility] Stop: 02/11/20 19:59 Last Admin: 01/17/20 08:22 Dose: Not Given Documented by: PG Care Time/CCT Total # of Minutes Spent Total Time Spent with Patient: Total time spent is greater than 50% in coordination of care (as documented) at patient's floor/unit and/or counseling patient: Coding Level of Care Code 60783 Subseq Hosp Care Lvl 3 Diagnoses Pneumonia due to COVID-19 virus U07.1; J12.89 Acute respiratory failure with hypoxia J96.01 Metabolic encephalopathy G93.41 Sepsis A41.9 Thrombocytopenia D69.6 CKD (chronic kidney disease), stage III N18.3 Coronary artery disease I25.10 Coronary Disease-Associated Artery/Lesion type: [place] artery [place] vs. transplanted heart: [place] heart Associated angina: without angina Type 2 diabetes mellitus E11.22; N18.3 Diabetes mellitus shelter insulin use: without termite exterminator helper use Diabetes mellitus complication status: with kidney complications Diabetes mellitus complication detail: with chronic kidney disease Chronic kidney disease stage: stage 3 (moderate) Hypertension I10 Hypertension type: essential hypertension Elevated troponin R77.8 Benign localized prostatic hyperplasia with lower urinary tract symptoms (LUTS) N40.1 Chews tobacco regularly Z72.0 Ear pain, left H92.02 Hypophosphatemia E83.39 GERD (gastroesophageal reflux disease) K21.9 DVT prophylaxis Z29.9 (1) Coronary artery disease Coronary Disease-Associated Artery/Lesion type: [place] artery [place] vs. transplanted heart: [place] heart Associated angina: without angina Qualified Code(s): I25.10 - Atherosclerotic heart disease of [place] coronary artery without angina pectoris (2) Type 2 diabetes mellitus Diabetes mellitus shelter insulin use: without termite exterminator helper use Diabetes mellitus complication status: with kidney complications Diabetes mellitus complication detail: with chronic kidney disease Chronic kidney disease stage: stage 3 (moderate) Qualified Code(s): E11.22 - Type 2 diabetes mellitus with diabetic chronic kidney disease; N18.3 - Chronic kidney disease, stage 3 (moderate) (3) Hypertension Hypertension type: essential hypertension Qualified Code(s): I10 - Essential (primary) hypertension
[2020-01-17] MEDS: ATORVASTATIN 40 MG TAB PO SCH ×2 (20:06→20:34)
[2020-01-17] MEDS: INSULIN GLARGINE SOLOSTAR 100 UNITS/ML 3 ML PEN SC SCH (20:49)
--- NOTE | 2020-01-18 07:46 | XRay Report ---
XR chest 1V portable HISTORY: 89 years-old Male COVID pneumonia acute shortness of breath with pneumonia COMPARISON: Chest radiograph 01/17/2020 TECHNIQUE: Portable AP view of the chest FINDINGS: Cardiomediastinal and hilar silhouettes are unchanged. Chronic left hemidiaphragmatic elevation. No p neumothorax or large pleural effusion. Reticular opacities are noted with superimposed left greater [place] right multilobar distribution of alveolar opacities. There is slight progression within the right lung base with otherwise stable appearance of the chest. Bones appear grossly intact. IMPRESSION: Bilateral pulmonary opacities are redemonstrated suggestive of pneumonia, mildly progress ed within the right lung base. ACT 112: Negative or not required by law. The above report was generated using voice recognition software. It may contain grammatical, syntax o r spelling errors. Electronically signed by: Bishnu Shankar M.D. 01/18/2020 7:45 AM
[2020-01-18] MEDS: NICOTINE 14 MG/24 HR PATCH TD SCH (07:59)
[2020-01-18] MEDS: dexAMETHasone 6 MG in SYRINGE 0 ML IV SCH (08:00)
[2020-01-18] MEDS: FAMOTIDINE 20 MG in SYRINGE 3 ML IV SCH ×2 (08:00→20:35)
[2020-01-18] MEDS: DOXYCYCLINE HYCLATE 100 MG in DEXTROSE 5% 100 ML IV SCH ×2 (08:01→20:40)
[2020-01-18] MEDS: ENOXAPARIN INJ 30 MG/0.3 ML SYR SQ SCH ×2 (08:02→20:36)
[2020-01-18] MEDS ORDERED: INSULIN GLARGINE SOLOSTAR 100 UNITS/ML 3 ML PEN SC ONE (09:00)
[2020-01-18] MEDS: INSULIN HUMAN NPH SC SCH (09:11)
[2020-01-18] MEDS: carvediloL 25 MG TAB PO SCH ×2 (09:15→20:44)
[2020-01-18] MEDS: ASPIRIN 81 MG ECTAB PO SCH (09:15)
[2020-01-18] MEDS: INSULIN ASPART 100 UNITS/ML 3 ML PEN SC SCH ×4 (09:15→20:32)
[2020-01-18] MEDS: PANTOprazole 40 MG TAB PO SCH ×2 (09:16→20:38)
[2020-01-18] MEDS: CEFEPIME 2,000 MG in SYRINGE 0 ML IV SCH ×2 (10:43→22:37)
--- NOTE | 2020-01-18 14:56 | Pharmacy Report ---
Pharmacy Glycemic Short Note 2 - Date of Service January 18, 2020 - Glycemic Short BSG Results (Last 24 hours): 01/17/20 01/17/20 01/18/20 17:24 20:39 08:21 POC Glucose 193 H 198 H 98 01/18/20 11:38 POC Glucose 142 H OUTPATIENT ANTIDIABETIC REGIMEN: * amaryl, metformin, januvia * HbA1c: 9.7% (11/29/19) ASSESSMENT: 01/17: * BSGs trending upward, still adequate, range from 143-198 mg/dL yesterday with 31 units total insulin given * Fasting BSG 98 mg/dL with 10 units of lantus- currently ordered scale up to 15 units- will continue * Carb ratio tightened this AM as BSGs higher in the evening yesterday, continue to monitor, patient continues on dexamethasone 6 mg, continuing NPH 10 units in the AM 01/15: * BSGs tightly controlled yesterday, 117, 100, 106, and 121 mg/dL * Received 10 units of NPH, 10 units of Lantus, and 0 units of Novolog * Poor appetite yesterday - no prandial insulin required * Fasting BSG of 104 mg/dL this morning * Will continue NPH and lower Lantus scale this evening * Continues on dexamethasone 6 mg IV daily - continue NPH 10 units * Continues on cefepime and doxycycline 01/12: * Patient admitted with COVID pneumonia, type 2 diabetic managed on orals at home. Most recent A1C ~9.7% * Patient started on IV steroids, anticipate BSGs to trend upward. Received total of 76 units of insulin yesterday, of which 40 were basal insulin * Fasting BSG remains elevated - 249 mg/dL, plan to add NPH with dex administration to help with coverage of BSGs throughout the day. Started at lower unit/kg NPH dosing d/t large Lantus dose being given yesterday at HS * Will provide scale for Lantus as HS as baseline patient likely needing insulin d/t A1c elevated PLAN FOR INPATIENT GLYCEMIC CONTROL: * Hold outpatient oral diabetes medications * Basal insulin - continue NPH * NPH 10 units (~0.1 unit/kg) SC qAM w/ dexamethasone * Lantus scale to provide 10 units SC HS (see EHR for details) * Bolus insulin - continue * NovoLog per scale ACHS or Q6hrs while NPO * Goal Range: Low 110 mg/dL - High 140 mg/dL * Correction Factor: 25 mg/dL/unit * Nutritional / Prandial insulin per carb ratio of 1 unit per 7 grams CHO consumed PLAN FOR DISCHARGE: * tbd
--- NOTE | 2020-01-18 18:33 | Hospitalist Progress Note ---
Date of Service January 18, 2020 Assessment & Plan (1) Pneumonia due to COVID-19 virus: Chest x-ray on admission had progressed significantly since his previous hospital stay a few days prior titrated off oxygen today, 01/17, no respiratory distress at all He has ongoing acute encephalopathy secondary to Covid/acute illness, oriented to person only, requiring mitts due to pulling at lines He has ongoing very poor appetite with very minimal p.o. intake and is refusing his p.o. medications at times ESR and CRP are trending downward slowly consider CVA in setting of COVID? unsure he would lay still for MRI brain continue Cefepime and Doxycycline for antibiotic coverage, last day is tomorrow With respect to his COVID- he was about 10 days into his illness at the time of admission. -Continue decadron x 10 days. Last dose will be 01/20 -Not a good candidate for remdesivir -- CrCl is nearly <30, and given he is 10+ days out from illness date, will defer on such. (2) Acute respiratory failure with hypoxia: As above Continue supplemental O2 to keep pulse ox greater than 90% titrated to room air today, 01/17, which is improvement Give IV Ativan 0.25 mg IV every 6 hours as needed anxiety Give Zyprexa p.o. or IM Haldol as needed for agitation especially if pulling oxygen off his face Continue one-on-one sitter and soft mitts to prevent him from pulling oxygen off his face (3) Metabolic encephalopathy: As above, 2nd to sepsis and COVID-19. Continue treatment with oxygen, redirection, supportive care possible that steroids are causing some confusion? however he came in with ence phalopathy will continue until 01/20 certainly CVA could be on differential, will see if he is stable enough for MRI brain tomorrow may need some sedation with Ativan to lay still long enough (4) Sepsis: 2nd to COVID-19. Now resolved Cannot rule out bacterial pneumonia either. Supportive care, IV antibiotics, follow cultures. Ur cx with mixed sam BCxs -NGTD vitals stable, no fever, sepsis resolved finish antibiotics tomorrow (5) Thrombocytopenia: 2nd to COVID-19. resolved (6) CKD (chronic kidney disease), stage III: Baseline CrCL 30s/40s Creatinine baseline 1.5 Also with a nonanion gap metabolic acidosis secondary to dehydration which was resolved but now has returned Creatinine 1.43 on 01/16 Avoid nephrotoxins Holding home Metformin no fluids today, want to keep lungs dry (7) Coronary artery disease: no evidence of ACS, has a history of stents placed in 2019 Denies any chest pain cont COreg Continue statin -continue asa (8) Type 2 diabetes mellitus: pharmacy glycemic consult placed holding oral agents With hyperglycemia here and then severe hypoglycemia at times Very poor appetite at this point continue insulin as per pHarmacy (9) Hypertension: Blood pressures mildly elevated continue Coreg (10) Elevated troponin: likely 2nd to myocardial demand ischemia in setting of sepsis/COVID-19 no ischemic sx's to suggest ACS Troponin 0 0.068 on admission and down to 0.035 the next morning No further work-up needed Has known severe CAD continue aspirin and beta-lucille Continue statin (11) Benign localized prostatic hyperplasia with lower urinary tract symptoms (LUTS): not on meds for such at home Now has Vo catheter in place (12) Chews tobacco regularly: Added on nicotine patch and nicotine gum as needed (13) Ear pain, left: had some left ear pain on 01/13, resolved with tylenol (14) Hypophosphatemia: Replaced and resolved follow phos in AM (15) GERD (gastroesophageal reflux disease): Continue PPI and added Pepcid in the setting of corticosteroids for Covid (16) DVT prophylaxis: lovenox 30mg BID -- higher dose due to increased risk of VTE in setting of COVID-19 Disposition-continued stay full code Nutrition: may need to try PPN/TPN briefly to improve strength Admission and Anticipated Discharge Date Admission Date: January 12, 2020 Subjective patient remains confused, agitated, uncooperative at times he was able to keep his mitts off this morning but had to have them back on in afternoon he still refuses to eat, RN and myself in the room, encouraged him, tried to feed him, he refused to open his mouth he cannot understand why he is here he was titrated off of oxygen today, 92% room air, no distress at all CXR today with persistent bilateral infiltrates updated his grand son today, discussed possibility of CVA I am unsure he would lay still long enough for MRI brain will evaluate tomorrow Review of Systems Review of Systems: Unobtainable due to cognitive status (doesn't answer questions) Physical Exam Constitutional: well developed, well nourished, + ill appearing and + frail appearing; no acute distress Neck: trachea midline, no thyromegaly Respiratory: normal respiratory effort; no respiratory distress, no labored breathing and no cough Auscultation: no crackles, no rales, no rhonchi and no wheezes Cardiovascular: RRR, no murmur, no edema Gastrointestinal (Abdomen): normal bowel sounds, soft, nontender, no hepatosplenomegaly Musculoskeletal: Head/Neck/Chest: normocephalic, head atraumatic and neck supple Extremities: extremities normal to inspection and + abnormal strength (generalized weakness) Skin: no rashes, warm and dry Neurologic: CN's II-XI intact bilaterally, moves all extremities, awake and + confused; no focal motor deficits Psychiatric: Orientation: alert, oriented to person and + guarded; + not oriented to place and + not oriented to time Results & Data Results & Data ([facility]) Vital Signs (Past 12 Hours) Vital Signs Temp Pulse Resp BP Pulse Ox 01/18/20 08:15 37 C 77 16 162/77 H 90 Laboratory Results Laboratory Results - last 24 hr 01/18/20 01/18/20 01/18/20 08:21 11:38 16:41 POC Glucose 98 142 H 154 H 01/18/20 20:20 POC Glucose 146 H Medications Administered Current Inpatient Medications Acetaminophen (Acetaminophen 325 Mg Tab) 650 mg PO Q4H PRN PRN Reason: Pain Stop: 02/12/20 18:03 Albuterol (Albuterol Hfa 8 Gm Inhaler) 2 puffs INH Q6H PRN PRN Reason: Cough Stop: 02/14/20 08:54 Aspirin (Aspirin 81 Mg Ectab) 81 mg PO QAM DERICK Stop: 02/12/20 21:59 Last Admin: 01/18/20 09:15 Dose: 81 mg Documented by: Atorvastatin Calcium (Atorvastatin 40 Mg Tab) 80 mg PO HS [facility] Stop: 02/13/20 20:59 Last Admin: 01/18/20 20:39 Dose: Not Given Documented by: Carvedilol (Carvedilol 25 Mg Tab) 25 mg PO BID@0800,2000 [facility] Stop: 02/13/20 07:59 Last Admin: 01/18/20 20:44 Dose: Not Given Documented by: Dextrose (Dextrose 50% 50 Ml Syringe) 25 - 50 ml IV UD PRN; Protocol PRN Reason: Hypoglycemia Protocol Stop: 02/13/20 11:44 Enoxaparin Sodium (Enoxaparin Inj 30 Mg/0.3 Ml Syr) 30 mg SQ Q12H DERICK Stop: 02/11/20 20:59 Last Admin: 01/18/20 20:36 Dose: 30 mg Documented by: Glucagon (Glucagon For Inj 1 Mg Vial) 1 mg IM UD PRN; Protocol PRN Reason: Hypoglycemia Protocol Stop: 02/13/20 11:44 Glucose (Glucose 40% Gel 15 Gm Tube) 15 - 30 gm PO UD PRN; Protocol PRN Reason: Hypoglycemia Protocol Stop: 02/13/20 11:44 Glucose (Glucose 10 Tabs/Tube) 4 - 8 tabs PO UD PRN; Protocol PRN Reason: Hypoglycemia Protocol Stop: 02/13/20 11:44 Guaifenesin/Dextromethorphan (Guaifenesin/Dextrom Syrup 200mg/20mg 10ml Udc) 20 ml PO Q6H PRN PRN Reason: Cough Stop: 02/14/20 17:46 Haloperidol (Haloperidol 1 Mg Tab) 1 mg PO Q8H PRN PRN Reason: Agitation Stop: 02/15/20 10:35 Haloperidol Lactate (Haloperidol Lactate 5 Mg/Ml 1 Ml Vial) 2.5 mg IM Q12 PRN PRN Reason: Agitation Stop: 02/15/20 10:36 Hydralazine HCl (Hydralazine Hcl 20 Mg/Ml Vial) 10 mg IV Q8H PRN PRN Reason: SBP>180 Stop: 02/13/20 20:55 Last Admin: 01/17/20 08:15 Dose: 10 mg Documented by: Cefepime HCl 2,000 mg/ Syringe 20 mls @ 5 mls/min IV Q12H DERICK; Protocol Stop: 01/19/20 21:59 Last Admin: 01/18/20 10:43 Dose: 5 mls/min Documented by: Doxycycline Hyclate 100 mg/ (Dextrose) 110 mls @ 50 mls/hr IV Q12H DERICK Stop: 01/19/20 19:59 Last Admin: 01/18/20 20:40 Dose: 50 mls/hr Documented by: Famotidine 20 mg/ Syringe 5 mls @ 2.5 mls/min IV Q12H DERICK Stop: 02/11/20 19:59 Last Admin: 01/18/20 20:35 Dose: 2.5 mls/min Documented by: Dexamethasone 6 mg/ Syringe 1.5 mls @ 1 mls/min IV DAILY [facility] Stop: 01/21/20 09:02 Last Admin: 01/18/20 08:00 Dose: 1 mls/min Documented by: Lorazepam (Ativan) 0.25 mg in 0.5 mls @ 0.5 mls/min IV Q4H PRN PRN Reason: anxiety Stop: 02/15/20 14:39 Last Admin: 01/17/20 02:01 Dose: 0.5 mls/min Documented by: Insulin Aspart (Insulin Aspart 100 Units/Ml 3 Ml Pen) 0 units SC ACHS [facility] Stop: 02/11/20 19:59 Last Admin: 01/18/20 20:32 Dose: 1 units Documented by: Insulin Glargine (Insulin Glargine Solostar 100 Units/Ml 3 Ml Pen) 10 units SC HS [facility] Stop: 02/12/20 20:59 Last Admin: 01/18/20 20:33 Dose: 10 units Documented by: Insulin Human NPH (Insulin Human Nph) 10 units SC DAILY@0900 [facility] Stop: 02/14/20 08:59 Last Admin: 01/18/20 09:11 Dose: 10 units Documented by: Miscellaneous (Remove Nicoderm Patch) 1 ea N/A DAILY@0759 [facility] Stop: 02/13/20 07:58 Last Admin: 01/18/20 07:58 Dose: 1 ea Documented by: Miscellaneous (Carbohydrates For Hypoglycemia ) 15 - 30 gm PO UD PRN PRN Reason: Hypoglycemia Treatment Stop: 02/13/20 11:44 Last Admin: 01/14/20 17:15 Dose: 15 gm Documented by: Miscellaneous Information (Pharmacy Glycemic Mgmt Consult) 1 ea N/A UD PRN PRN Reason: Consult Stop: 02/11/20 19:57 Miscellaneous Information (Cefepime Consult Active) 1 ea N/A UD PRN PRN Reason: Consult Stop: 02/11/20 19:57 Nicotine (Nicotine 14 Mg/24 Hr Patch) 14 mg TD QAM@0800 [facility] Stop: 02/13/20 07:59 Last Admin: 01/18/20 07:59 Dose: 14 mg Documented by: Nicotine Polacrilex (Nicotine Polacrilex 2 Mg Gum) 1 piece MT TID PRN PRN Reason: nicotine craving Stop: 02/12/20 16:23 Ondansetron HCl (Ondansetron Inj 2 Mg/Ml 2 Ml Vial) 4 mg IV Q6H PRN PRN Reason: Nausea Stop: 02/11/20 19:06 Pantoprazole Sodium (Pantoprazole 40 Mg Tab) 40 mg PO BID@0800,1999 [facility] Stop: 02/11/20 19:59 Last Admin: 01/18/20 20:38 Dose: Not Given Documented by: PG Care Time/CCT Total # of Minutes Spent Total Time Spent with Patient: Total time spent is greater than 50% in coordination of care (as documented) at patient's floor/unit and/or counseling patient: Coding Level of Care Code 18215 Subseq Hosp Care Lvl 3 Diagnoses Pneumonia due to COVID-19 virus U07.1; J12.89 Acute respiratory failure with hypoxia J96.01 Metabolic encephalopathy G93.41 Sepsis A41.9 Thrombocytopenia D69.6 CKD (chronic kidney disease), stage III N18.3 Coronary artery disease I25.10 Associated angina: without angina Coronary Disease-Associated Artery/Lesion type: [place] artery [place] vs. transplanted heart: [place] heart Type 2 diabetes mellitus E11.22; N18.3 Chronic kidney disease stage: stage 3 (moderate) Diabetes mellitus complication detail: with chronic kidney disease Diabetes mellitus complication status: with kidney complications Diabetes mellitus terminal block assembler insulin use: without terminal block assembler use Hypertension I10 Hypertension type: essential hypertension Elevated troponin R77.8 Benign localized prostatic hyperplasia with lower urinary tract symptoms (LUTS) N40.1 Chews tobacco regularly Z72.0 Ear pain, left H92.02 Hypophosphatemia E83.39 GERD (gastroesophageal reflux disease) K21.9 DVT prophylaxis Z29.9 (1) Type 2 diabetes mellitus Chronic kidney disease stage: stage 3 (moderate) Diabetes mellitus complication detail: with chronic kidney disease Diabetes mellitus complication status: with kidney complications Diabetes mellitus terminal block assembler insulin use: without intermediate use Qualified Code(s): E11.22 - Type 2 diabetes mellitus with diabetic chronic kidney disease; N18.3 - Chronic kidney disease, stage 3 (moderate) (2) Coronary artery disease Associated angina: without angina Coronary Disease-Associated Artery/Lesion type: [place] artery [place] vs. transplanted heart: [place] heart Qualified Code(s): I25.10 - Atherosclerotic heart disease of [place] coronary artery without angina pectoris (3) Hypertension Hypertension type: essential hypertension Qualified Code(s): I10 - Essential (primary) hypertension
[2020-01-18] MEDS: ATORVASTATIN 40 MG TAB PO SCH (20:39)
[2020-01-18] MEDS ORDERED: INSULIN GLARGINE SOLOSTAR 100 UNITS/ML 3 ML PEN SC SCH (21:00)
[2020-01-18] MEDS: LORazepam 0.25 MG/0.5 ML VIAL IV PRN (22:42)
[2020-01-19] MEDS: CARBOHYDRATES FOR HYPOGLYCEMIA PO PRN (08:45)
[2020-01-19] MEDS: dexAMETHasone 6 MG in SYRINGE 0 ML IV SCH (08:51)
[2020-01-19] MEDS: ASPIRIN 81 MG ECTAB PO SCH (09:08)
[2020-01-19] MEDS: carvediloL 25 MG TAB PO SCH ×2 (09:08→20:30)
[2020-01-19] MEDS: PANTOprazole 40 MG TAB PO SCH ×2 (09:08→20:29)
[2020-01-19] MEDS: NICOTINE 14 MG/24 HR PATCH TD SCH (09:09)
[2020-01-19] MEDS: INSULIN ASPART 100 UNITS/ML 3 ML PEN SC SCH ×4 (09:12→20:17)
[2020-01-19] MEDS: INSULIN HUMAN NPH SC SCH (09:17)
[2020-01-19] MEDS: FAMOTIDINE 20 MG in SYRINGE 3 ML IV SCH ×2 (09:19→20:32)
[2020-01-19] MEDS: DOXYCYCLINE HYCLATE 100 MG in DEXTROSE 5% 100 ML IV SCH (09:19)
[2020-01-19] MEDS: ENOXAPARIN INJ 30 MG/0.3 ML SYR SQ SCH ×2 (09:19→20:23)
--- NOTE | 2020-01-19 10:04 | Pharmacy Report ---
Pharmacy Glycemic Short Note 2 - Date of Service January 19, 2020 - Glycemic Short BSG Results (Last 24 hours): 01/18/20 01/18/20 01/18/20 11:38 16:41 20:20 POC Glucose 142 H 154 H 146 H 01/19/20 01/19/20 01/19/20 08:42 08:44 09:05 POC Glucose 62 L* 62 L* 70 OUTPATIENT ANTIDIABETIC REGIMEN: * amaryl, metformin, januvia * HbA1c: 9.7% (11/29/19) ASSESSMENT: 01/18: * BSGs yesterday were well-controlled, 95, 142, 154, and 146 mg/dL * Received 10 units of NPH, 20 units of Lantus (appears that morning dose of Lantus 10 units was inadvertent), and 3 units of correctional insulin * - Fasting BSG of 62 mg/dL this morning - likely due to additional dose of Lantus yesterday morning + poor oral intake * Continues on IV dexamethasone -> continue NPH 10 units to be given with dexamethasone * Last day of cefepime and doxycycline today 01/17: * BSGs trending upward, still adequate, range from 143-198 mg/dL yesterday with 31 units total insulin given * Fasting BSG 98 mg/dL with 10 units of lantus- currently ordered scale up to 15 units- will continue * Carb ratio tightened this AM as BSGs higher in the evening yesterday, continue to monitor, patient continues on dexamethasone 6 mg, continuing NPH 10 units in the AM 01/15: * BSGs tightly controlled yesterday, 117, 100, 106, and 121 mg/dL * Received 10 units of NPH, 10 units of Lantus, and 0 units of Novolog * Poor appetite yesterday - no prandial insulin required * Fasting BSG of 104 mg/dL this morning * Will continue NPH and lower Lantus scale this evening * Continues on dexamethasone 6 mg IV daily - continue NPH 10 units * Continues on cefepime and doxycycline 01/12: * Patient admitted with COVID pneumonia, type 2 diabetic managed on orals at home. Most recent A1C ~9.7% * Patient started on IV steroids, anticipate BSGs to trend upward. Received total of 76 units of insulin yesterday, of which 40 were basal insulin * Fasting BSG remains elevated - 249 mg/dL, plan to add NPH with dex administration to help with coverage of BSGs throughout the day. Started at lower unit/kg NPH dosing d/t large Lantus dose being given yesterday at HS * Will provide scale for Lantus as HS as baseline patient likely needing insulin d/t A1c elevated PLAN FOR INPATIENT GLYCEMIC CONTROL: * Hold outpatient oral diabetes medications * Basal insulin - * NPH 10 units (~0.1 unit/kg) SC qAM w/ dexamethasone * Lantus scale to provide 5-10 units SC HS (see EHR for details) * - possible reduction in light of decreased oral intake * Bolus insulin * NovoLog per scale ACHS or Q6hrs while NPO * Goal Range: Low 110 mg/dL - High 140 mg/dL * Correction Factor: 25 mg/dL/unit * Nutritional / Prandial insulin per carb ratio of 1 unit per 8 grams CHO consumed PLAN FOR DISCHARGE: * tbd
[2020-01-19] MEDS: CEFEPIME 2,000 MG in SYRINGE 0 ML IV SCH (12:57)
[2020-01-19] MEDS: INSULIN GLARGINE SOLOSTAR 100 UNITS/ML 3 ML PEN SC SCH (20:18)
[2020-01-19] MEDS: ATORVASTATIN 40 MG TAB PO SCH (20:29)
--- NOTE | 2020-01-19 23:23 | Hospitalist Progress Note ---
Date of Service January 19, 2020 Assessment & Plan (1) Pneumonia due to COVID-19 virus: Chest x-ray on admission had progressed significantly since his previous hospital stay a few days prior fluctuates between room air and 1L, no distress at all He has ongoing acute delirium secondary to Covid/acute illness, oriented to person only, requiring mitts due to pulling at lines He has ongoing very poor appetite with very minimal p.o. intake and is refusing his p.o. medications at times ESR and CRP are trending downward slowly consider CVA in setting of COVID? unsure he would lay still for MRI brain, plus it would not change management lead at this time continue Cefepime and Doxycycline for antibiotic coverage, last day is today With respect to his COVID- he was about 10 days into his illness at the time of admission. -Continue decadron but stop after dose on 01/19 -Not a good candidate for remdesivir -- CrCl is nearly <30, and given he is 10+ days out from illness date, will defer on such. (2) Acute respiratory failure with hypoxia: As above Continue supplemental O2 to keep pulse ox greater than 90% titrated to room air 01/17, intermittently needs 1L Give IV Ativan 0.25 mg IV every 6 hours as needed anxiety Give Zyprexa p.o. or IM Haldol as needed for agitation especially if pulling oxygen off his face Continue one-on-one sitter and soft mitts to prevent him from pulling oxygen off his face (3) Metabolic encephalopathy: As above, 2nd to COVID 19, delirium Continue treatment with oxygen, redirection, supportive care possible that steroids are causing some confusion? however he came in with encephalopathy will continue until 01/19 then stop spoke with Dr. Mcleod, neurology, many cases of COVID delirium are well documented (4) Sepsis: 2nd to COVID-19. Now resolved Cannot rule out bacterial pneumonia either. Supportive care, IV antibiotics, follow cultures. Ur cx with mixed sam BCxs -NGTD vitals stable, no fever, sepsis resolved finish antibiotics tomorrow (5) Thrombocytopenia: 2nd to COVID-19. resolved (6) CKD (chronic kidney disease), stage III: Baseline CrCL 30s/40s Creatinine baseline 1.5 Also with a nonanion gap metabolic acidosis secondary to dehydration which was resolved but now has returned Creatinine 1.43 on 01/16 Avoid nephrotoxins Holding home Metformin give Dextrose due to hypoglycemia check BMP (7) Coronary artery disease: no evidence of ACS, has a history of stents placed in 2019 Denies any chest pain cont COreg Continue statin -continue asa (8) Type 2 diabetes mellitus: pharmacy glycemic consult placed holding oral agents With hyperglycemia here and then severe hypoglycemia at times Very poor appetite at this point continue insulin as per pHarmacy will start dextrose in fluids (9) Hypertension: Blood pressures mildly elevated continue Coreg (10) Elevated troponin: likely 2nd to myocardial demand ischemia in setting of sepsis/COVID-19 no ischemic sx's to suggest ACS Troponin 0 0.068 on admission and down to 0.035 the next morning No further work-up needed Has known severe CAD continue aspirin and beta-lucille Continue statin (11) Benign localized prostatic hyperplasia with lower urinary tract symptoms (LUTS): not on meds for such at home Now has Vo catheter in place (12) Chews tobacco regularly: Added on nicotine patch and nicotine gum as needed (13) Ear pain, left: had some left ear pain on 01/13, resolved with tylenol (14) Hypophosphatemia: Replaced and resolved follow phos in AM (15) GERD (gastroesophageal reflux disease): Continue PPI and added Pepcid in the setting of corticosteroids for Covid (16) DVT prophylaxis: lovenox 30mg BID -- higher dose due to increased risk of VTE in setting of COVID-19 Disposition-continued stay full code Nutrition: may need to try PPN/TPN briefly to improve strength Admission and Anticipated Discharge Date Admission Date: January 12, 2020 Subjective patient still pulling at lines and tubes needed to keep mitts in place still won't eat much, confused, cannot understand why he is here on 1L of oxygen, breathing well Review of Systems Review of Systems: Unobtainable due to cognitive status (confused) Physical Exam Constitutional: well developed, well nourished and + frail appearing; no acute distress Neck: trachea midline, no thyromegaly Respiratory: normal respiratory effort; no respiratory distress, no labored breathing and no cough Auscultation: no crackles, no rales, no rhonchi and no wheezes Cardiovascular: RRR, no murmur, no edema Gastrointestinal (Abdomen): normal bowel sounds, soft, nontender, no hepatosplenomegaly Musculoskeletal: Head/Neck/Chest: normocephalic, head atraumatic and neck supple Extremities: extremities normal to inspection and + abnormal strength (generalized weakness) Skin: no rashes, warm and dry Neurologic: CN's II-XI intact bilaterally, moves all extremities, awake and + confused; no focal motor deficits Psychiatric: Orientation: alert, oriented to person and + guarded; + not oriented to place and + not oriented to time Results & Data Results & Data (MN) Vital Signs (Past 12 Hours) Vital Signs Temp Pulse Resp BP BP Pulse Ox 01/19/20 23:07 36.1 C L 18 136/82 01/19/20 20:36 90 165/92 H 01/19/20 15:37 36.4 C L 88 16 155/82 H 97 Laboratory Results Laboratory Results - last 24 hr 01/19/20 01/19/20 01/19/20 08:42 08:44 09:05 POC Glucose 62 L* 62 L* 70 01/19/20 01/19/20 01/19/20 12:24 17:39 20:17 POC Glucose 116 H 117 H 122 H Medications Administered Current Inpatient Medications Acetaminophen (Acetaminophen 325 Mg Tab) 650 mg PO Q4H PRN PRN Reason: Pain Stop: 02/12/20 18:03 Albuterol (Albuterol Hfa 8 Gm Inhaler) 2 puffs INH Q6H PRN PRN Reason: Cough Stop: 02/14/20 08:54 Aspirin (Aspirin 81 Mg Ectab) 81 mg PO QAM DERICK Stop: 02/12/20 21:59 Last Admin: 01/19/20 09:08 Dose: Not Given Documented by: Atorvastatin Calcium (Atorvastatin 40 Mg Tab) 80 mg PO HS [facility] Stop: 02/13/20 20:59 Last Admin: 01/19/20 20:29 Dose: Not Given Documented by: Carvedilol (Carvedilol 25 Mg Tab) 25 mg PO BID@0800,2000 [facility] Stop: 02/13/20 07:59 Last Admin: 01/19/20 20:30 Dose: Not Given Documented by: Dextrose (Dextrose 50% 50 Ml Syringe) 25 - 50 ml IV UD PRN; Protocol PRN Reason: Hypoglycemia Protocol Stop: 02/13/20 11:44 Enoxaparin Sodium (Enoxaparin Inj 30 Mg/0.3 Ml Syr) 30 mg SQ Q12H [facility] Stop: 02/11/20 20:59 Last Admin: 01/19/20 20:23 Dose: 30 mg Documented by: Glucagon (Glucagon For Inj 1 Mg Vial) 1 mg IM UD PRN; Protocol PRN Reason: Hypoglycemia Protocol Stop: 02/13/20 11:44 Glucose (Glucose 40% Gel 15 Gm Tube) 15 - 30 gm PO UD PRN; Protocol PRN Reason: Hypoglycemia Protocol Stop: 02/13/20 11:44 Last Admin: 01/19/20 08:54 Dose: 15 gm Documented by: Glucose (Glucose 10 Tabs/Tube) 4 - 8 tabs PO UD PRN; Protocol PRN Reason: Hypoglycemia Protocol Stop: 02/13/20 11:44 Guaifenesin/Dextromethorphan (Guaifenesin/Dextrom Syrup 200mg/20mg 10ml Udc) 20 ml PO Q6H PRN PRN Reason: Cough Stop: 02/14/20 17:46 Haloperidol (Haloperidol 1 Mg Tab) 1 mg PO Q8H PRN PRN Reason: Agitation Stop: 02/15/20 10:35 Haloperidol Lactate (Haloperidol Lactate 5 Mg/Ml 1 Ml Vial) 2.5 mg IM Q12 PRN PRN Reason: Agitation Stop: 02/15/20 10:36 Hydralazine HCl (Hydralazine Hcl 20 Mg/Ml Vial) 10 mg IV Q8H PRN PRN Reason: SBP>180 Stop: 02/13/20 20:55 Last Admin: 01/17/20 08:15 Dose: 10 mg Documented by: Famotidine 20 mg/ Syringe 5 mls @ 2.5 mls/min IV Q12H DERICK Stop: 02/11/20 19:59 Last Admin: 01/19/20 20:32 Dose: 2.5 mls/min Documented by: Dexamethasone 6 mg/ Syringe 1.5 mls @ 1 mls/min IV DAILY DERICK Stop: 01/21/20 09:02 Last Admin: 01/19/20 08:51 Dose: 1 mls/min Documented by: Lorazepam (Ativan) 0.25 mg in 0.5 mls @ 0.5 mls/min IV Q4H PRN PRN Reason: anxiety Stop: 02/15/20 14:39 Last Admin: 01/18/20 22:42 Dose: 0.5 mls/min Documented by: Insulin Aspart (Insulin Aspart 100 Units/Ml 3 Ml Pen) 0 units SC ACHS [facility] Stop: 02/11/20 19:59 Last Admin: 01/19/20 20:17 Dose: Not Given Documented by: Insulin Glargine (Insulin Glargine Solostar 100 Units/Ml 3 Ml Pen) 0 units SC HS [facility]; Protocol Stop: 02/12/20 20:59 Last Admin: 01/19/20 20:18 Dose: 10 units Documented by: Insulin Human NPH (Insulin Human Nph) 10 units SC DAILY@0900 [facility] Stop: 02/14/20 08:59 Last Admin: 01/19/20 09:17 Dose: 10 units Documented by: Miscellaneous (Remove Nicoderm Patch) 1 ea N/A DAILY@0759 [facility] Stop: 02/13/20 07:58 Last Admin: 01/19/20 09:08 Dose: 1 ea Documented by: Miscellaneous (Carbohydrates For Hypoglycemia ) 15 - 30 gm PO UD PRN PRN Reason: Hypoglycemia Treatment Stop: 02/13/20 11:44 Last Admin: 01/19/20 08:45 Dose: 15 gm Documented by: Miscellaneous Information (Pharmacy Glycemic Mgmt Consult) 1 ea N/A UD PRN PRN Reason: Consult Stop: 02/11/20 19:57 Miscellaneous Information (Cefepime Consult Active) 1 ea N/A UD PRN PRN Reason: Consult Stop: 02/11/20 19:57 Nicotine (Nicotine 14 Mg/24 Hr Patch) 14 mg TD QAM@0800 [facility] Stop: 02/13/20 07:59 Last Admin: 01/19/20 09:09 Dose: 14 mg Documented by: Nicotine Polacrilex (Nicotine Polacrilex 2 Mg Gum) 1 piece MT TID PRN PRN Reason: nicotine craving Stop: 02/12/20 16:23 Ondansetron HCl (Ondansetron Inj 2 Mg/Ml 2 Ml Vial) 4 mg IV Q6H PRN PRN Reason: Nausea Stop: 02/11/20 19:06 Pantoprazole Sodium (Pantoprazole 40 Mg Tab) 40 mg PO BID@0800,1999 [facility] Stop: 02/11/20 19:59 Last Admin: 01/19/20 20:29 Dose: Not Given Documented by: PG Care Time/CCT Total # of Minutes Spent Total Time Spent with Patient: Total time spent is greater than 50% in coordination of care (as documented) at patient's floor/unit and/or counseling patient: Coding Level of Care Code 03699 Subseq Hosp Care Lvl 3 Diagnoses Pneumonia due to COVID-19 virus U07.1; J12.89 Acute respiratory failure with hypoxia J96.01 Metabolic encephalopathy G93.41 Sepsis A41.9 Thrombocytopenia D69.6 CKD (chronic kidney disease), stage III N18.3 Coronary artery disease I25.10 Associated angina: without angina Coronary Disease-Associated Artery/Lesion type: [place] artery [place] vs. transplanted heart: [place] heart Type 2 diabetes mellitus E11.22; N18.3 Chronic kidney disease stage: stage 3 (moderate) Diabetes mellitus complication detail: with chronic kidney disease Diabetes mellitus complication status: with kidney complications Diabetes mellitus terminal block assembler insulin use: without terminal block assembler use Hypertension I10 Hypertension type: essential hypertension Elevated troponin R77.8 Benign localized prostatic hyperplasia with lower urinary tract symptoms (LUTS) N40.1 Chews tobacco regularly Z72.0 Ear pain, left H92.02 Hypophosphatemia E83.39 GERD (gastroesophageal reflux disease) K21.9 DVT prophylaxis Z29.9 (1) Type 2 diabetes mellitus Chronic kidney disease stage: stage 3 (moderate) Diabetes mellitus complication detail: with chronic kidney disease Diabetes mellitus complication status: with kidney complications Diabetes mellitus intermediate insulin use: without intermediate use Qualified Code(s): E11.22 - Type 2 diabetes mellitus with diabetic chronic kidney disease; N18.3 - Chronic kidney disease, stage 3 (moderate) (2) Coronary artery disease Associated angina: without angina Coronary Disease-Associated Artery/Lesion type: [place] artery [place] vs. transplanted heart: [place] heart Qualified Code(s): I25.10 - Atherosclerotic heart disease of [place] coronary artery without angina pectoris (3) Hypertension Hypertension type: essential hypertension Qualified Code(s): I10 - Essential (primary) hypertension
[2020-01-20] MEDS: LORazepam 0.25 MG/0.5 ML VIAL IV PRN (04:00)
[2020-01-20] MEDS: D5W AND 1/2NSS 1,000 ML IV SCH ×2 (04:00→13:33)
[2020-01-20] MEDS: ENOXAPARIN INJ 30 MG/0.3 ML SYR SQ SCH ×2 (09:14→19:34)
[2020-01-20] MEDS: ASPIRIN 81 MG ECTAB PO SCH (09:14)
[2020-01-20] MEDS: PANTOprazole 40 MG TAB PO SCH ×2 (09:15→19:35)
[2020-01-20] MEDS: carvediloL 25 MG TAB PO SCH ×2 (09:15→19:34)
[2020-01-20] MEDS: dexAMETHasone 6 MG in SYRINGE 0 ML IV SCH (09:16)
[2020-01-20] MEDS: NICOTINE 14 MG/24 HR PATCH TD SCH (09:18)
[2020-01-20] MEDS: FAMOTIDINE 20 MG in SYRINGE 3 ML IV SCH ×2 (09:25→19:35)
[2020-01-20] MEDS: INSULIN ASPART 100 UNITS/ML 3 ML PEN SC SCH ×4 (09:28→21:35)
[2020-01-20] MEDS: INSULIN HUMAN NPH SC SCH (09:28)
[2020-01-20 16:09] LABS: Basophils # (auto) 0.01 K/uL (0-0.2); Basophils % (auto) 0.1 %; Eosinophils # (auto) 0.01 K/uL (0-0.5); Eosinophils % (auto) 0.1 %; Hematocrit (blood only) 42.1 % (42-52); Hemoglobin 14.5 g/dL (14.0-18.0); Immature Granulocytes # (auto) 0.11 K/uL (0.00-0.02); Immature Granulocytes % (auto) 1.5 %; Lymphocytes % (auto) 8.4 %; Mean Corpuscular Hemoglobin 32.4 pg (25-34); Mean Corpuscular Hgb Conc 34.4 g/dL (32-36); Mean Platelet Volume 10.1 fL (7.4-10.4); Monocytes # (auto) 0.58 K/uL (0.11-0.59); Monocytes % (auto) 8.1 %; Neutrophils # (auto) 5.82 K/uL (1.4-6.5); Neutrophils % (auto) 81.8 %; Platelet Count 268 K/uL (130-400); RDW Coefficient of Variation 14.6 % (11.5-14.5); RDW Standard Deviation 48.9 fL (36.4-46.3); Red Blood Count 4.48 M/uL (4.7-6.1); White Blood Count 7.13 K/uL (4.8-10.8)
[2020-01-20 16:27] LABS: Albumin Level 2.6 gm/dl (3.4-5.0); BUN Creatinine Ratio 25.5 (10-20); Calcium 9.2 mg/dl (8.5-10.1); Creatinine Clr Calc Pharmacy 38.2 ml/min; Est GFR (African American) 49.8; Potassium 4.6 mmol/L (3.5-5.1)
[2020-01-20 16:36] LABS: Albumin Globulin Ratio 0.6 (0.9-2); Bilirubin,Total 0.8 mg/dl (0.2-1); Globulin 4.6 gm/dl (2.5-4.0); Total Protein 7.2 gm/dl (6.4-8.2); Troponin I 0.169 ng/ml (0-0.045)
--- NOTE | 2020-01-20 16:53 | Hospitalist Progress Note ---
Date of Service January 20, 2020 Assessment & Plan (1) Metabolic encephalopathy: As above, 2nd to COVID 19, delirium Continue treatment with oxygen, redirection, supportive care possible that steroids are causing some confusion? however he came in with encephalopathy stop Dexamethasone today spoke with Dr. Mcleod, neurology, many cases of COVID delirium are well documented currently being studied, unsure of the intermodal dispatcher effects when patients have delirium could be weeks, months, permanent? explained this to family consult palliative care tomorrow to help with goals of care I addressed code status with family today, for now they wish for full code asked them to talk about what patient would want in terms of feeding tube, half-way artificial nutrition (2) Pneumonia due to COVID-19 virus: Chest x-ray on admission had progressed significantly since his previous hospital stay a few days prior fluctuates between room air and 1L, no distress at all He has ongoing acute delirium secondary to Covid/acute illness, oriented to pers on only, requiring mitts due to pulling at lines He has ongoing very poor appetite with very minimal p.o. intake and is refusing his p.o. medications at times -stop Decadron today -Not a good candidate for remdesivir -- CrCl is nearly <30, and given he is 10+ days out from illness date, will defer on such pneumonia clinically resolved (3) Acute respiratory failure with hypoxia: As above Continue supplemental O2 to keep pulse ox greater than 90% titrated to room air 01/17, intermittently needs 1L, no respiratory distress at all (4) Sepsis: 2nd to COVID-19. Now resolved Cannot rule out bacterial pneumonia either. Supportive care, IV antibiotics finished Ur cx with mixed sam BCxs -NGTD vitals stable, no fever, sepsis resolved (5) Thrombocytopenia: 2nd to COVID-19. resolved (6) CKD (chronic kidney disease), stage III: Baseline CrCL 30s/40s Creatinine baseline 1.5 Also with a nonanion gap metabolic acidosis secondary to dehydration which was resolved but now has returned Creatinine 1.45 on 01/19 Avoid nephrotoxins Holding home Metformin give Dextrose due to hypoglycemia check BMP (7) Coronary artery disease: no evidence of ACS, has a history of stents placed in 2019 Denies any chest pain cont COreg Continue statin -continue asa (8) Type 2 diabetes mellitus: pharmacy glycemic consult placed holding oral agents With hyperglycemia here and then severe hypoglycemia at times Very poor appetite at this point continue insulin as per pHarmacy will start dextrose in fluids plan for TPN tomorrow if PICC can be placed (9) Hypertension: Blood pressures mildly elevated continue Coreg when he will take it (10) Elevated troponin: likely 2nd to myocardial demand ischemia in setting of sepsis/COVID-19 no ischemic sx's to suggest ACS Troponin 0 0.068 on admission and down to 0.035 the next morning No further work-up needed Has known severe CAD continue aspirin and beta-lucille when he will take it Continue statin (11) Benign localized prostatic hyperplasia with lower urinary tract symptoms (LUTS): not on meds for such at home Now has Vo catheter in place (12) Chews tobacco regularly: Added on nicotine patch and nicotine gum as needed (13) Ear pain, left: had some left ear pain on 01/13, resolved with tylenol (14) Hypophosphatemia: Replaced and resolved follow phos in AM (15) GERD (gastroesophageal reflux disease): Continue PPI and added Pepcid in the setting of corticosteroids for Covid (16) DVT prophylaxis: lovenox 30mg BID -- higher dose due to increased risk of VTE in setting of COVID-19 Disposition-continued stay, discussed with family that he will need / care they would like him to come home full code, consult palliative care Nutrition: try TPN for short term family needs to discuss between themselves about what patient would want half-way Admission and Anticipated Discharge Date Admission Date: January 12, 2020 Subjective patient continues to be confused, combative, agitated requiring soft restraints due to constantly pulling at lines he still won't eat enough, going on 10 days now of poor nutrition breathing comfortably, on room air or 1L intermittently no fever/chills checked CBC, CMP, troponin, ammonia - nothing markedly abnormal long talk with his daughter Katelyn over the phone as well as his grandson Royce discussed the situation, that he likely has delirium related to COVID 19 infection unclear how long he will remain like this, could be weeks or longer, could be permanent, we are still studying this major issue is that he was once fully independent and now he is in bed, confused, won't eat/drink discussed getting PICC line and TPN, family in agreement with that short term briefly discussed PEG tube, I would have concerns about him pulling it out and causing harm to himself discussed that the pneumonia is resolved, will stop dexamethasone discussed that options would be home with 02/09 care from family or SNF discussed that he won't do therapy so rehab is not possible, insurance would not approve they agree to initial consult with palliative care tomorrow he is still full code, I discussed the futility of CPR and intubation in his current clinical situation his daughter Katelyn says that he does not have a designated POA, he has his and four children I asked Royce, his grandson, to discuss with the family as he is a PA with pain management and has medical background for now they want him to remain full code Review of Systems Review of Systems: Unobtainable due to cognitive status Physical Exam Constitutional: well developed, well nourished and + frail appearing; no acute distress ENMT: Mouth: + dry oral mucous membranes Neck: trachea midline, no thyromegaly Respiratory: normal respiratory effort; no respiratory distress, no labored breathing and no cough Auscultation: no crackles, no rales, no rhonchi and no wheezes Cardiovascular: RRR, no murmur, no edema Gastrointestinal (Abdomen): normal bowel sounds, soft, nontender, no hepatosplenomegaly Musculoskeletal: Head/Neck/Chest: normocephalic, head atraumatic and neck supple Extremities: extremities normal to inspection and + abnormal strength (generalized weakness) Skin: no rashes, warm and dry Neurologic: CN's II-XI intact bilaterally, moves all extremities, awake and + confused; no focal motor deficits Psychiatric: Orientation: alert, oriented to person and + guarded; + not oriented to place and + not oriented to time Results & Data Results & Data ([facility]) Vital Signs (Past 12 Hours) Vital Signs Temp Pulse Pulse Resp BP Pulse Ox 01/20/20 15:21 37 C 98 H 16 125/77 98 01/20/20 07:30 36.5 C 94 H 18 143/87 H 95 Laboratory Results Laboratory Results - last 24 hr 01/19/20 01/19/20 01/20/20 17:39 20:17 03:35 WBC RBC Hgb Hct MCV MCH MCHC RDW Std Deviation RDW Coeff of Allie Plt Count MPV Immature Gran % (Auto) Neut % (Auto) Lymph % (Auto) [place] % (Auto) Eos % (Auto) Baso % (Auto) Neut # (Auto) Lymph # (Auto) [place] # (Auto) Eos # (Auto) Baso # (Auto) Immature Gran # (Auto) Sodium Potassium Chloride Carbon Dioxide Anion Gap BUN Creatinine Est Cr Clr Drug Dosing Est GFR ( Amer) Est GFR (Non-Af Amer) BUN/Creatinine Ratio Glucose POC Glucose 117 H 122 H 71 Calcium Total Bilirubin AST ALT Alkaline Phosphatase Ammonia Troponin I Total Protein Albumin Globulin Albumin/Globulin Ratio 01/20/20 01/20/20 01/20/20 08:37 12:16 15:54 WBC 7.13 RBC 4.48 L Hgb 14.5 Hct 42.1 MCV 94.0 MCH 32.4 MCHC 34.4 RDW Std Deviation 48.9 H RDW Coeff of Allie 14.6 H Plt Count 268 MPV 10.1 Immature Gran % (Auto) 1.5 Neut % (Auto) 81.8 Lymph % (Auto) 8.4 [place] % (Auto) 8.1 Eos % (Auto) 0.1 Baso % (Auto) 0.1 Neut # (Auto) 5.82 Lymph # (Auto) 0.60 L [place] # (Auto) 0.58 Eos # (Auto) 0.01 Baso # (Auto) 0.01 Immature Gran # (Auto) 0.11 H Sodium Potassium Chloride Carbon Dioxide Anion Gap BUN Creatinine Est Cr Clr Drug Dosing Est GFR ( Amer) Est GFR (Non-Af Amer) BUN/Creatinine Ratio Glucose POC Glucose 141 H 168 H Calcium Total Bilirubin AST ALT Alkaline Phosphatase Ammonia Troponin I Total Protein Albumin Globulin Albumin/Globulin Ratio 01/20/20 01/20/20 15:54 15:54 WBC RBC Hgb Hct MCV MCH MCHC RDW Std Deviation RDW Coeff of Allie Plt Count MPV Immature Gran % (Auto) Neut % (Auto) Lymph % (Auto) [place] % (Auto) Eos % (Auto) Baso % (Auto) Neut # (Auto) Lymph # (Auto) [place] # (Auto) Eos # (Auto) Baso # (Auto) Immature Gran # (Auto) Sodium 145 Potassium 4.6 Chloride 120 H Carbon Dioxide 18 L Anion Gap 8.0 BUN 37 H Creatinine 1.45 H Est Cr Clr Drug Dosing 38.2 Est GFR ( Amer) 49.8 Est GFR (Non-Af Amer) 43.0 BUN/Creatinine Ratio 25.5 H Glucose 197 H POC Glucose Calcium 9.2 Total Bilirubin 0.8 AST 35 ALT 41 Alkaline Phosphatase 79 Ammonia 25.4 Troponin I 0.169 H* Total Protein 7.2 Albumin 2.6 L Globulin 4.6 H Albumin/Globulin Ratio 0.6 L Medications Administered Current Inpatient Medications Acetaminophen (Acetaminophen 325 Mg Tab) 650 mg PO Q4H PRN PRN Reason: Pain Stop: 02/12/20 18:03 Albuterol (Albuterol Hfa 8 Gm Inhaler) 2 puffs INH Q6H PRN PRN Reason: Cough Stop: 02/14/20 08:54 Aspirin (Aspirin 81 Mg Ectab) 81 mg PO QAM [facility] Stop: 02/12/20 21:59 Last Admin: 01/20/20 09:14 Dose: 81 mg Documented by: Atorvastatin Calcium (Atorvastatin 40 Mg Tab) 80 mg PO HS [facility] Stop: 02/13/20 20:59 Last Admin: 01/19/20 20:29 Dose: Not Given Documented by: Carvedilol (Carvedilol 25 Mg Tab) 25 mg PO BID@0800,2000 [facility] Stop: 02/13/20 07:59 Last Admin: 01/20/20 09:15 Dose: 25 mg Documented by: Dextrose (Dextrose 50% 50 Ml Syringe) 25 - 50 ml IV UD PRN; Protocol PRN Reason: Hypoglycemia Protocol Stop: 02/13/20 11:44 Enoxaparin Sodium (Enoxaparin Inj 30 Mg/0.3 Ml Syr) 30 mg SQ Q12H [facility] Stop: 02/11/20 20:59 Last Admin: 01/20/20 09:14 Dose: 30 mg Documented by: Glucagon (Glucagon For Inj 1 Mg Vial) 1 mg IM UD PRN; Protocol PRN Reason: Hypoglycemia Protocol Stop: 02/13/20 11:44 Glucose (Glucose 40% Gel 15 Gm Tube) 15 - 30 gm PO UD PRN; Protocol PRN Reason: Hypoglycemia Protocol Stop: 02/13/20 11:44 Last Admin: 01/19/20 08:54 Dose: 15 gm Documented by: Glucose (Glucose 10 Tabs/Tube) 4 - 8 tabs PO UD PRN; Protocol PRN Reason: Hypoglycemia Protocol Stop: 02/13/20 11:44 Guaifenesin/Dextromethorphan (Guaifenesin/Dextrom Syrup 200mg/20mg 10ml Udc) 20 ml PO Q6H PRN PRN Reason: Cough Stop: 02/14/20 17:46 Haloperidol (Haloperidol 1 Mg Tab) 1 mg PO Q8H PRN PRN Reason: Agitation Stop: 02/15/20 10:35 Haloperidol Lactate (Haloperidol Lactate 5 Mg/Ml 1 Ml Vial) 2.5 mg IM Q12 PRN PRN Reason: Agitation Stop: 02/15/20 10:36 Hydralazine HCl (Hydralazine Hcl 20 Mg/Ml Vial) 10 mg IV Q8H PRN PRN Reason: SBP>180 Stop: 02/13/20 20:55 Last Admin: 01/17/20 08:15 Dose: 10 mg Documented by: Famotidine 20 mg/ Syringe 5 mls @ 2.5 mls/min IV Q12H [facility] Stop: 02/11/20 19:59 Last Admin: 01/20/20 09:25 Dose: 2.5 mls/min Documented by: Lorazepam (Ativan) 0.25 mg in 0.5 mls @ 0.5 mls/min IV Q4H PRN PRN Reason: anxiety Stop: 02/15/20 14:39 Last Admin: 01/20/20 04:00 Dose: 0.5 mls/min Documented by: Dextrose/Sodium Chloride (D5w And 1/2nss) 1,000 mls @ 120 mls/hr IV .Q8H20M DERICK Stop: 02/19/20 03:44 Last Admin: 01/20/20 13:33 Dose: 120 mls/hr Documented by: Dextrose (D10w) 1,000 mls @ 0 mls/hr IV .Q0M PRN PRN Reason: protocol (see label comments) Stop: 02/20/20 15:59 Lorazepam (Ativan) 0.5 mg in 1 mls @ 0.5 mls/min IV UD PRN PRN Reason: Agitation Stop: 02/19/20 16:47 Insulin Aspart (Insulin Aspart 100 Units/Ml 3 Ml Pen) 0 units SC ACHS [facility] Stop: 02/11/20 19:59 Last Admin: 01/20/20 13:29 Dose: 2 units Documented by: Insulin Aspart (Insulin Aspart 100 Units/Ml 3 Ml Pen) 0 units SC 0200 [facility] Stop: 01/21/20 02:01 Insulin Glargine (Insulin Glargine Solostar 100 Units/Ml 3 Ml Pen) 0 units SC HS [facility]; Protocol Stop: 02/12/20 20:59 Last Admin: 01/19/20 20:18 Dose: 10 units Documented by: Insulin Human NPH (Insulin Human Nph) 10 units SC DAILY@0900 [facility] Stop: 02/14/20 08:59 Last Admin: 01/20/20 09:28 Dose: 10 units Documented by: Miscellaneous (Remove Nicoderm Patch) 1 ea N/A DAILY@0759 [facility] Stop: 02/13/20 07:58 Last Admin: 01/20/20 09:14 Dose: 1 ea Documented by: Miscellaneous (Carbohydrates For Hypoglycemia ) 15 - 30 gm PO UD PRN PRN Reason: Hypoglycemia Treatment Stop: 02/13/20 11:44 Last Admin: 01/19/20 08:45 Dose: 15 gm Documented by: Miscellaneous Information (Pharmacy Glycemic Mgmt Consult) 1 ea N/A UD PRN PRN Reason: Consult Stop: 02/11/20 19:57 Miscellaneous Information (Tpn/Ppn Consult Pharmacy) 1 ea N/A UD PRN PRN Reason: Consult Stop: 02/20/20 05:59 Nicotine (Nicotine 14 Mg/24 Hr Patch) 14 mg TD QAM@0800 [facility] Stop: 02/13/20 07:59 Last Admin: 01/20/20 09:18 Dose: 14 mg Documented by: Nicotine Polacrilex (Nicotine Polacrilex 2 Mg Gum) 1 piece MT TID PRN PRN Reason: nicotine craving Stop: 02/12/20 16:23 Ondansetron HCl (Ondansetron Inj 2 Mg/Ml 2 Ml Vial) 4 mg IV Q6H PRN PRN Reason: Nausea Stop: 02/11/20 19:06 Pantoprazole Sodium (Pantoprazole 40 Mg Tab) 40 mg PO BID@0800,2000 [facility] Stop: 02/11/20 19:59 Last Admin: 01/20/20 09:15 Dose: 40 mg Documented by: PG Care Time/CCT Total # of Minutes Spent Total Time Spent: 65 Total Time Spent with Patient: Total time spent is greater than 50% in coordination of care (as documented) at patient's floor/unit and/or counseling patient: 20 minutes on the phone with daughter Katelyn 10 minutes on the phone with grandshanda Crane 10 minutes discussing case with Dr. Mcleod, neurology 5 minutes discussing options with case management 20 minutes on exam, reviewing labs, documentation Prolonged Care Time Prolonged Care Time: Yes Total Prolonged Care Time: 35 Coding Level of Care Code 90242 Subseq Hosp Care Lvl 3 Diagnoses Metabolic encephalopathy G93.41 Pneumonia due to COVID-19 virus U07.1; J12.89 Acute respiratory failure with hypoxia J96.01 Sepsis A41.9 Thrombocytopenia D69.6 CKD (chronic kidney disease), stage III N18.3 Coronary artery disease I25.10 Associated angina: without angina Coronary Disease-Associated Artery/Lesion type: nez perce artery Resigh[place] vs. transplanted heart: nez perce heart Type 2 diabetes mellitus E11.22; N18.3 Chronic kidney disease stage: stage 3 (moderate) Diabetes mellitus complication detail: with chronic kidney disease Diabetes mellitus complication status: with kidney complications Diabetes mellitus half-way insulin use: without intermodal dispatcher use Hypertension I10 Hypertension type: essential hypertension Elevated troponin R77.8 Benign localized prostatic hyperplasia with lower urinary tract symptoms (LUTS) N40.1 Chews tobacco regularly Z72.0 Ear pain, left H92.02 Hypophosphatemia E83.39 GERD (gastroesophageal reflux disease) K21.9 DVT prophylaxis Z29.9 Additional Codes Prolonged Care Time - Prolonged Care Time: Yes ([id number]) (1) Type 2 diabetes mellitus Chronic kidney disease stage: stage 3 (moderate) Diabetes mellitus complication detail: with chronic kidney disease Diabetes mellitus complication status: with kidney complications Diabetes mellitus half-way insulin use: without intermodal dispatcher use Qualified Code(s): E11.22 - Type 2 diabetes mellitus with diabetic chronic kidney disease; N18.3 - Chronic kidney disease, stage 3 (moderate) (2) Coronary artery disease Associated angina: without angina Coronary Disease-Associated Artery/Lesion type: nez [place] artery [place] vs. transplanted heart: nez perce heart Qualified Code(s): I25.10 - Atherosclerotic heart disease of nez perce coronary artery without angina pectoris (3) Hypertension Hypertension type: essential hypertension Qualified Code(s): I10 - Essential (primary) hypertension
[2020-01-20] MEDS: ATORVASTATIN 40 MG TAB PO SCH (20:38)
[2020-01-20] MEDS: INSULIN GLARGINE SOLOSTAR 100 UNITS/ML 3 ML PEN SC SCH (21:40)
[2020-01-21] MEDS ORDERED: INSULIN ASPART 100 UNITS/ML 3 ML PEN SC SCH (02:00)
[2020-01-21] MEDS: D5W AND 1/2NSS 1,000 ML IV SCH ×3 (02:27→16:00)
[2020-01-21] MEDS ORDERED: TPN/PPN CONSULT PHARMACY PRN (06:00)
[2020-01-21 06:43] LABS: BUN Creatinine Ratio 27.6 (10-20); Calcium 8.5 mg/dl (8.5-10.1); Creatinine Clr Calc Pharmacy 42.6 ml/min; Est GFR (African American) 56.9; Est GFR (Non-African American) 49.1; Magnesium 2.3 mg/dl (1.8-2.4); Phosphorus 2.9 mg/dl (2.5-4.9); Potassium 3.8 mmol/L (3.5-5.1)
[2020-01-21] MEDS: NICOTINE 14 MG/24 HR PATCH TD SCH (07:36)
[2020-01-21] MEDS: FAMOTIDINE 20 MG in SYRINGE 3 ML IV SCH ×2 (07:38→20:54)
[2020-01-21] MEDS: ENOXAPARIN INJ 30 MG/0.3 ML SYR SQ SCH ×2 (07:38→21:01)
[2020-01-21] MEDS ORDERED: TPN/PPN CONSULT PHARMACY STA (08:14)
[2020-01-21] MEDS: INSULIN GLARGINE SOLOSTAR 100 UNITS/ML 3 ML PEN SC SCH ×2 (08:24→22:27)
[2020-01-21] MEDS: ASPIRIN 81 MG ECTAB PO SCH (08:26)
[2020-01-21] MEDS: PANTOprazole 40 MG TAB PO SCH ×2 (08:26→21:00)
[2020-01-21] MEDS: carvediloL 25 MG TAB PO SCH ×2 (08:26→21:09)
[2020-01-21] MEDS: INSULIN ASPART 100 UNITS/ML 3 ML PEN SC SCH ×4 (08:39→22:28)
--- NOTE | 2020-01-21 11:26 | Palliative Care Consultation ---
Date of Consultation January 21, 2020 Assessment & Plan (1) Palliative care encounter: I spoke with Mrs. Rodrigez by phone to discuss his current condition and goals of care. She is understandably upset about his mental status and refusal to eat, drink, or take medications. She is wondering if she would be able to visit with him in the hope that she could calm him down and reason with him. I did explain current visitation restrictions and that his current behavior is a side effect in his brain of the covid infection. Unfortunately, we do not have a reliable prognosis for this. We did discuss trying to set up a zoom visit and she would want that to be arranged through her daughter, Sadie, if possible. She understands the implications of his refusing to eat or drink and is agreeable to TPN/PPN in the short term. He has not talked about his preferences for health care in the past. She feels that he would want CPR and intubation in the short term but not prolonged support. We discussed other methods of artificial nutrition which would be very problematic for him with his agitated behavior. She understands this and remains hopeful that this will improve. She has talked with her family about this. We will continue to follow and work with family on goals of care. Thank you for allowing us to participate in his care. (2) Metabolic encephalopathy: May benefit from low dose routine haldol though he has not been willing to take any medications. Will order and nursing will try po meds in applesauce. (3) COVID-19: History of Present Illness Reason for Consultation: goals of care Requesting Physician: Dr. Harris Attending Physician: Carlton Harris DO History of Present Illness 89 yo gentleman who had been active and independent at home. He was found to be covid 19 positive after testing for symptoms of cough, fever and fatigue on December 30. He was admitted to the hospital on 01/11 with worsening cough, dyspnea, fever and delirium. He has been treated for sepsis and pneumonia and is now stable on 1 L O2 via nasal cannula. Unfortunately he continues to have agitated delirium. He is combative with care and tried to bite the nurse who was giving him his insulin during my visit. He has been refusing to eat or drink. He is awake and alert but very distrustful and repeatedly saying that he wants to call the clerk of scales and go home. Of note, he has comorbid CAD, BPH, PVD, CKD, diabetes and hypertension. His renal function is at baseline. His sodium level is normal. His WBC is normal. He does have a dennis catheter and is voiding. Allergies Allergy/AdvReac Type Severity Reaction Status Date / Time No Known Drug Allergies Allergy Verified 01/12/20 14:39 Home Medications Medication Instructions Recorded Confirmed Type aspirin 81 mg tablet,delayed 81 mg PO QAM 03/12/18 01/12/20 History release clonidine HCl 0.1 mg tablet 0.1 mg PO DAILY PRN tab 11/04/18 01/12/20 History pantoprazole 40 mg tablet,delayed 40 mg PO BID #180 tab 02/24/19 01/12/20 Rx release carvedilol 25 mg tablet 25 mg PO BID #180 tab 05/06/19 01/12/20 Rx metformin 1,000 mg tablet 1,000 mg PO BID #180 tab 05/17/19 01/12/20 Rx atorvastatin 80 mg tablet 80 mg PO HS #90 tab 06/21/19 01/12/20 Rx glimepiride 4 mg tablet 4 mg PO BID #180 tab 08/04/19 01/12/20 Rx Januvia 25 mg PO HS 01/08/20 01/12/20 History ondansetron HCl [Zofran] 4 mg PO Q8H PRN 5 Days #20 tab 01/09/20 01/12/20 Rx Patient History Medical History Actinic keratosis Anaplasmosis Atrial premature complex Benign localized prostatic hyperplasia with lower urinary tract symptoms (LUTS) BMI 29.0-29.9,adult Chews tobacco regularly CKD (chronic kidney disease), stage III Constipation Depression Diabetes mellitus Diabetic nephropathy Diabetic peripheral neuropathy Dieulafoy lesion of stomach Erythematous papules of skin Gastritis GERD (gastroesophageal reflux disease) Helicobacter pylori ab+ (10/27/13) Hiatal hernia History of SCC (squamous cell carcinoma) of skin Hypertension Rhabdomyolysis SI joint arthritis Trochanteric bursitis Type 2 diabetes mellitus Unilateral primary osteoarthritis, left hip Urinary hesitancy Visual impairment Vitamin D deficiency Surgical History History of appendectomy History of colonoscopy History of transurethral resection of prostate Family History Unknown Diabetes Coronary heart disease Father Prostate cancer Social History Smoking Status: Never smoker Tobacco Type: Smokeless Tobacco (Dip or Chew) Age Started Using Tobacco: 22; Second Hand Exposure: No; Hx Alcohol Use: No Hx Substance Use: No Preferred Language: Belarusian Communication Ability: Effective Hearing Ability: Use of Hearing Aid Boiler House Operator Required: No Beliefs That Will Affect Care: None marital status: Current Living Situation: Spouse Current Living Situation Comment: lives in [place] current occupational status: 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; 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; [employer] How many Children do You have: 4 Feels Safe at Home: Yes Dental Care, Regularly: No Physical Activity Frequency: Daily Seatbelt Use: always Sunscreen Use: No Assistive Devices: Oxygen - Continuous Review of Systems Review of Systems: Unobtainable due to cognitive status [place] Symptom Assessment Scale Pain 0/3 Dyspnea 0/3 Palliative Performance Scale 30% Physical Exam Constitutional: + altered mental status and + combative; + uncooperative Respiratory: no labored breathing Cardiovascular: Extremities: no edema Musculoskeletal: Extremities: strength 5/5 throughout Skin: no rashes, warm and dry Psychiatric: Orientation: alert; + not oriented x 3 Thought Content: + paranoid Results & Data ([facility]) Vital Signs (Past 12 Hours) Vital Signs Temp Pulse Resp BP Pulse Ox 01/21/20 07:42 97.9 F 84 18 157/83 H 94 PG Care Time/CCT Total # of Minutes Spent Total Time Spent with Patient: Total time spent is greater than 50% in coordination of care (as documented) at patient's floor/unit and/or counseling patient: Total time spent 70 minutes with more than 50% of time spent on symptom management, family support and, code status, goals of care. Coding Level of Care Code 67137 Inpt Consult Level 4 Diagnoses Palliative care encounter Z51.5 Metabolic encephalopathy G93.41 COVID-19 U07.1
[2020-01-21] MEDS: haloperidoL 0.5 MG TAB PO SCH ×2 (12:55→21:09)
--- NOTE | 2020-01-21 13:02 | Pharmacy Report ---
Pharmacy Glycemic Short Note 2 - Date of Service January 21, 2020 - Glycemic Short BSG Results (Last 24 hours): 01/20/20 01/20/20 01/20/20 15:54 17:06 20:50 Glucose 197 H POC Glucose 195 H 184 H 01/21/20 01/21/20 01/21/20 01:59 05:32 08:24 Glucose 219 H POC Glucose 194 H 214 H 01/21/20 11:42 Glucose POC Glucose 232 H OUTPATIENT ANTIDIABETIC REGIMEN: * amaryl, metformin, januvia * HbA1c: 9.7% (11/29/19) ASSESSMENT: 01/20: * D5/0.45 NS @120 mL/hr initiated yesterday * BSGs yesterday of 141, 168, 195, and 184 mg/dL * Patient received 10 units of NPH with IV dexamethasone, 15 units of Lantus, and 11 units of prandial/correctional Novolog * Dexamethasone now discontinued - will d/c NPH * Fasting BSG of 214 mg/dL this morning (likely due to significant dextrose content from IV fluids) * Lantus 15 units x 1 given this morning and will utilize scale this evening * IV fluids will be discontinued this evening at 1600 for initiation of PPN * PPN will provide 100 g dextrose - will add 10 units (0.1 unit/g of dextrose) of insulin to PPN 01/18: * BSGs yesterday were well-controlled, 95, 142, 154, and 146 mg/dL * Received 10 units of NPH, 20 units of Lantus (appears that morning dose of Lantus 10 units was inadvertent), and 3 units of correctional insulin * - Fasting BSG of 62 mg/dL this morning - likely due to additional dose of Lantus yesterday morning + poor oral intake * Continues on IV dexamethasone -> continue NPH 10 units to be given with dexamethasone * Last day of cefepime and doxycycline today 01/12: * Patient admitted with COVID pneumonia, type 2 diabetic managed on orals at home. Most recent A1C ~9.7% * Patient started on IV steroids, anticipate BSGs to trend upward. Received total of 76 units of insulin yesterday, of which 40 were basal insulin * Fasting BSG remains elevated - 249 mg/dL, plan to add NPH with dex administration to help with coverage of BSGs throughout the day. Started at lower unit/kg NPH dosing d/t large Lantus dose being given yesterday at HS * Will provide scale for Lantus as HS as baseline patient likely needing insulin d/t A1c elevated PLAN FOR INPATIENT GLYCEMIC CONTROL: * Hold outpatient oral diabetes medications * Basal insulin - discontinue NPH, increase Lantus * Lantus 15 units SC x 1 this morning * Lantus scale this evening to provide 0-10 units (see EHR for details) * Bolus insulin - tighten correction factor * NovoLog per scale ACHS or Q6hrs while NPO * Goal Range: Low 110 mg/dL - High 140 mg/dL * Correction Factor: 20 mg/dL/unit * Nutritional / Prandial insulin per carb ratio of 1 unit per 8 grams CHO consumed * PPN * Bag to provide 100 g of dextrose/24 hours * Will add 10 units (0.1 unit/g of dextrose) to bag PLAN FOR DISCHARGE: * tbd - will depend on goals of care at discharge
--- NOTE | 2020-01-21 13:18 | Pharmacy Report ---
Pharmacy PN Initial Consult - Date of Service January 21, 2020 - Scope Pharmacy has been consulted to manage parenteral nutrition orders and order appropriate labs. As part of the Nutrition Support Team guidelines, pharmacy will work in conjunction with dietary when determining the patients caloric needs. - Subjective The patient is a 89 year old M admitted on 01/12/20 16:14 for COVID 19 PNEUMONIA. Patient is to receive parenteral nutrition for prolonged limited PO intake secondary to delirium. Pertinent PMH: COVID-19 pneumonia, type 2 diabetes mellitus, CKD - Objective Height: 5 ft 11 in Weight: 79.6 kg Intake & Output (Last 24Hrs): Intake & Output 01/19/20 01/20/20 01/21/20 01/22/20 06:59 06:59 06:59 06:59 Intake Total 220 / 220 226 / 226 1909 / 1909 1000 / 1000 Output Total 1000 / 1000 575 / 575 700 / 700 Balance -780 / -780 -349 / -349 1209 / 1209 1000 / 1000 Weight 82.6 kg 79.6 kg Laboratory Data (Last 24 Hrs):: 01/20/20 01/21/20 15:54 05:32 Sodium 145 145 Potassium 4.6 3.8 D Chloride 120 H 119 H Carbon Dioxide 18 L 21 BUN 37 H 36 H Creatinine 1.45 H 1.30 Glucose 197 H 219 H Calcium 9.2 8.5 Phosphorus 2.9 Magnesium 2.3 Total Bilirubin 0.8 AST 35 ALT 41 Alkaline Phosphatase 79 Albumin 2.6 L Nutrition Assessment:: Please refer to the Notes section of the EMR for the 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 - Assessment * DB is an 89 year old male ordered PPN for short-term nutrition support * Patient with altered mental status/delirium refusing PO intake * Prior to PPN initiation - patient has been receiving D5/0.45 NS at 120 mL/hr * Will discontinue IV fluids at time of PPN initiation * Electrolytes largely stable, chloride has been elevated throughout hospital stay -> will favor acetate in PPN * BSGs have been elevated since IV fluids containing dextrose were added - will add 10 units (0.1 unit/g of dex) of insulin to cover dextrose content - Plan For day 1 of PN administration, the following will be ordered: Macronutrients Amino acids 90 grams/day Dextrose 100 grams/day Lipids 50 grams/day Micronutrients Potassium phosphate 30 mMol Potassium acetate 40 mEq Magnesium sulfate 8.12 mEq Calcium gluconate 4.65 mEq Multivitamins 10 mL Trace Elements 10 mL Additional additives: thiamine 100 mg, folic acid 1 mg, insulin 10 units Total volume 2400 mL to be infused over 24 hrs will provide 1200 kcal/day Final osmolarity 634 mOsm/L (maximum for PPN is 900 mOsm/L) Labs to be ordered per PN order protocol Pharmacy will follow and adjust parenteral nutrition orders on a daily basis. Thank you.
--- NOTE | 2020-01-21 13:24 | Hospitalist Progress Note ---
Date of Service January 21, 2020 Assessment & Plan (1) Metabolic encephalopathy: As above, 2nd to COVID 19, delirium Continue treatment with oxygen, redirection, supportive care possible that steroids are causing some confusion? however he came in with encephalopathy stopped Dexamethasone 01/[address] Mcleod, neurology, many cases of COVID delirium are well documented currently being studied, unsure of the alf effects when patients have delirium could be weeks, months, permanent? explained this to family on 01/19 consult palliative care they spoke with family today, for now they want short term trial of nutrition they want him to remain full code but would only want life support short term family will continue to discuss goals of care I had brought up home with hospice as probably the most reasonable option, see if home environment would improve appetite and improve cognition (2) Pneumonia due to COVID-19 virus: Chest x-ray on admission had progressed significantly since his previous hospital stay a few days prior fluctuates between room air and 1L, no distress at all He has ongoing acute delirium secondary to Covid/acute illness, oriented to person only, requiring mitts due to pulling at lines He has ongoing very poor appetite with very minimal p.o. intake and is refusing his p.o. medications at times -stop Decadron 01/19 -was not a good candidate for remdesivir -- CrCl is nearly <30, and given he is 10+ days out from illness when he presented pneumonia clinically resolved (3) Acute respiratory failure with hypoxia: As above Continue supplemental O2 to keep pulse ox greater than 90% titrated to room air 01/17, intermittently needs 1L, no respiratory distress at all for days, denies dyspnea (4) Sepsis: 2nd to COVID-19. Now resolved Cannot rule out bacterial pneumonia either. Supportive care, IV antibiotics finished Ur cx with mixed sam BCxs -NGTD vitals stable, no fever, sepsis resolved (5) Thrombocytopenia: 2nd to COVID-19. resolved (6) CKD (chronic kidney disease), stage III: Baseline CrCL 30s/40s Creatinine baseline 1.5 Also with a nonanion gap metabolic acidosis secondary to dehydration which was resolved but now has returned Creatinine 1.3 today Avoid nephrotoxins Holding home Metformin give Dextrose due to hypoglycemia check BMP regularly with plans for PPN (7) Coronary artery disease: no evidence of ACS, has a history of stents placed in 2019 Denies any chest pain cont COreg Continue statin -continue asa (8) Type 2 diabetes mellitus: pharmacy glycemic consult placed holding oral agents With hyperglycemia here and then severe hypoglycemia at times Very poor appetite at this point continue insulin as per pHarmacy plan for PPN today (9) Hypertension: Blood pressures mildly elevated continue Coreg when he will take it (10) Elevated troponin: likely 2nd to myocardial demand ischemia in setting of sepsis/COVID-19 no ischemic sx's to suggest ACS Troponin 0 0.068 on admission and down to 0.035 the next morning No further work-up needed Has known severe CAD continue aspirin and beta-lucille when he will take it Continue statin (11) Benign localized prostatic hyperplasia with lower urinary tract symptoms (LUTS): not on meds for such at home Now has Vo catheter in place (12) Chews tobacco regularly: Added on nicotine patch and nicotine gum as needed (13) Ear pain, left: had some left ear pain on 01/13, resolved with tylenol (14) Hypophosphatemia: Replaced and resolved follow phos in AM (15) GERD (gastroesophageal reflux disease): Continue PPI and added Pepcid in the setting of corticosteroids for Covid (16) DVT prophylaxis: lovenox 30mg BID -- higher dose due to increased risk of VTE in setting of COVID-19 Disposition-continued stay, discussed with family that he will need 24/7 care they would like him to come home, hospice might be the most reasonable option certainly he would not live long without steady nutrition will remain full code, consult palliative care, they will follow Nutrition: try PPN for short term, he would not cooperate for PICC line family needs to discuss between themselves about what patient would want alf already advised against PEG as he is constantly pulling at lines Admission and Anticipated Discharge Date Admission Date: January 12, 2020 Subjective patient continues to be confused, no meaningful oral intake he is able to deny any pain, deny shortness of breath attempted to place PICC but he would not allow them, despite Ativan to calm him down spoke with pharmacy, will proceed with PPN appreciate consultation from palliative care, I spoke with Dr. Echevarria personally she spoke with the patient's , discussed goals of care, open to short term PPN/TPN she thinks the patient would want CPR and intubation family is going to continue to discuss this hoping to have more definitive goals established after the weekend Review of Systems Review of Systems: Unobtainable due to cognitive status (denied pain, denied shortness of breath) Physical Exam Constitutional: well developed, well nourished and + frail appearing; no acute distress ENMT: Mouth: + dry oral mucous membranes Neck: trachea midline, no thyromegaly Respiratory: normal respiratory effort; no respiratory distress, no labored breathing and no cough Auscultation: no crackles, no rales, no rhonchi and no wheezes Cardiovascular: RRR, no murmur, no edema Gastrointestinal (Abdomen): normal bowel sounds, soft, nontender, no hepatosplenomegaly Musculoskeletal: Head/Neck/Chest: normocephalic, head atraumatic and neck supple Extremities: extremities normal to inspection and + abnormal strength (generalized weakness) Skin: no rashes, warm and dry Neurologic: CN's II-XI intact bilaterally, moves all extremities, awake and + confused; no focal motor deficits Psychiatric: Orientation: alert, oriented to person and + guarded; + not oriented to place and + not oriented to time Results & Data Results & Data ([facility]) Vital Signs (Past 12 Hours) Vital Signs Temp Pulse Resp BP Pulse Ox 01/21/20 07:42 36.6 C 84 18 157/83 H 94 Laboratory Results Laboratory Results - last 24 hr 01/20/20 01/20/20 01/20/20 15:54 15:54 15:54 WBC 7.13 RBC 4.48 L Hgb 14.5 Hct 42.1 MCV 94.0 MCH 32.4 MCHC 34.4 RDW Std Deviation 48.9 H RDW Coeff of Allie 14.6 H Plt Count 268 MPV 10.1 Immature Gran % (Auto) 1.5 Neut % (Auto) 81.8 Lymph % (Auto) 8.4 [place] % (Auto) 8.1 Eos % (Auto) 0.1 Baso % (Auto) 0.1 Neut # (Auto) 5.82 Lymph # (Auto) 0.60 L [place] # (Auto) 0.58 Eos # (Auto) 0.01 Baso # (Auto) 0.01 Immature Gran # (Auto) 0.11 H Sodium 145 Potassium 4.6 Chloride 120 H Carbon Dioxide 18 L Anion Gap 8.0 BUN 37 H Creatinine 1.45 H Est Cr Clr Drug Dosing 38.2 Est GFR ( Amer) 49.8 Est GFR (Non-Af Amer) 43.0 BUN/Creatinine Ratio 25.5 H Glucose 197 H POC Glucose Calcium 9.2 Phosphorus Magnesium Total Bilirubin 0.8 AST 35 ALT 41 Alkaline Phosphatase 79 Ammonia 25.4 Troponin I 0.169 H* Total Protein 7.2 Albumin 2.6 L Globulin 4.6 H Albumin/Globulin Ratio 0.6 L 01/20/20 01/20/20 01/21/20 17:06 20:50 01:59 WBC RBC Hgb Hct MCV MCH MCHC RDW Std Deviation RDW Coeff of Allie Plt Count MPV Immature Gran % (Auto) Neut % (Auto) Lymph % (Auto) [place] % (Auto) Eos % (Auto) Baso % (Auto) Neut # (Auto) Lymph # (Auto) [place] # (Auto) Eos # (Auto) Baso # (Auto) Immature Gran # (Auto) Sodium Potassium Chloride Carbon Dioxide Anion Gap BUN Creatinine Est Cr Clr Drug Dosing Est GFR ( Amer) Est GFR (Non-Af Amer) BUN/Creatinine Ratio Glucose POC Glucose 195 H 184 H 194 H Calcium Phosphorus Magnesium Total Bilirubin AST ALT Alkaline Phosphatase Ammonia Troponin I Total Protein Albumin Globulin Albumin/Globulin Ratio 01/21/20 01/21/20 01/21/20 05:32 08:24 11:42 WBC RBC Hgb Hct MCV MCH MCHC RDW Std Deviation RDW Coeff of Allie Plt Count MPV Immature Gran % (Auto) Neut % (Auto) Lymph % (Auto) [place] % (Auto) Eos % (Auto) Baso % (Auto) Neut # (Auto) Lymph # (Auto) [place] # (Auto) Eos # (Auto) Baso # (Auto) Immature Gran # (Auto) Sodium 145 Potassium 3.8 D Chloride 119 H Carbon Dioxide 21 Anion Gap 5.0 BUN 36 H Creatinine 1.30 Est Cr Clr Drug Dosing 42.6 Est GFR ( Amer) 56.9 Est GFR (Non-Af Amer) 49.1 BUN/Creatinine Ratio 27.6 H Glucose 219 H POC Glucose 214 H 232 H Calcium 8.5 Phosphorus 2.9 Magnesium 2.3 Total Bilirubin AST ALT Alkaline Phosphatase Ammonia Troponin I Total Protein Albumin Globulin Albumin/Globulin Ratio Medications Administered Current Inpatient Medications Acetaminophen (Acetaminophen 325 Mg Tab) 650 mg PO Q4H PRN PRN Reason: Pain Stop: 02/12/20 18:03 Albuterol (Albuterol Hfa 8 Gm Inhaler) 2 puffs INH Q6H PRN PRN Reason: Cough Stop: 02/14/20 08:54 Aspirin (Aspirin 81 Mg Ectab) 81 mg PO QAM [facility] Stop: 02/12/20 21:59 Last Admin: 01/21/20 08:26 Dose: Not Given Documented by: Atorvastatin Calcium (Atorvastatin 40 Mg Tab) 80 mg PO HS DERICK Stop: 02/13/20 20:59 Last Admin: 01/20/20 20:38 Dose: Not Given Documented by: Carvedilol (Carvedilol 25 Mg Tab) 25 mg PO BID@0800,2000 DERICK Stop: 02/13/20 07:59 Last Admin: 01/21/20 08:26 Dose: Not Given Documented by: Dextrose (Dextrose 50% 50 Ml Syringe) 25 - 50 ml IV UD PRN; Protocol PRN Reason: Hypoglycemia Protocol Stop: 02/13/20 11:44 Enoxaparin Sodium (Enoxaparin Inj 30 Mg/0.3 Ml Syr) 30 mg SQ Q12H [facility] Stop: 02/11/20 20:59 Last Admin: 01/21/20 07:38 Dose: Not Given Documented by: Glucagon (Glucagon For Inj 1 Mg Vial) 1 mg IM UD PRN; Protocol PRN Reason: Hypoglycemia Protocol Stop: 02/13/20 11:44 Glucose (Glucose 40% Gel 15 Gm Tube) 15 - 30 gm PO UD PRN; Protocol PRN Reason: Hypoglycemia Protocol Stop: 02/13/20 11:44 Last Admin: 01/19/20 08:54 Dose: 15 gm Documented by: Glucose (Glucose 10 Tabs/Tube) 4 - 8 tabs PO UD PRN; Protocol PRN Reason: Hypoglycemia Protocol Stop: 02/13/20 11:44 Guaifenesin/Dextromethorphan (Guaifenesin/Dextrom Syrup 200mg/20mg 10ml Udc) 20 ml PO Q6H PRN PRN Reason: Cough Stop: 02/14/20 17:46 Haloperidol (Haloperidol 0.5 Mg Tab) 0.5 mg PO Q8H DERICK Stop: 02/20/20 11:59 Last Admin: 01/21/20 12:55 Dose: 0.5 mg Documented by: Haloperidol Lactate (Haloperidol Lactate 5 Mg/Ml 1 Ml Vial) 2.5 mg IM Q12 PRN PRN Reason: Agitation Stop: 02/15/20 10:36 Hydralazine HCl (Hydralazine Hcl 20 Mg/Ml Vial) 10 mg IV Q8H PRN PRN Reason: SBP>180 Stop: 02/13/20 20:55 Last Admin: 01/17/20 08:15 Dose: 10 mg Documented by: Famotidine 20 mg/ Syringe 5 mls @ 2.5 mls/min IV Q12H DERICK Stop: 02/11/20 19:59 Last Admin: 01/21/20 07:38 Dose: 2.5 mls/min Documented by: Lorazepam (Ativan) 0.25 mg in 0.5 mls @ 0.5 mls/min IV Q4H PRN PRN Reason: anxiety Stop: 02/15/20 14:39 Last Admin: 01/20/20 04:00 Dose: 0.5 mls/min Documented by: Dextrose/Sodium Chloride (D5w And 1/2nss) 1,000 mls @ 120 mls/hr IV .Q8H20M DERICK Stop: 01/21/20 16:00 Last Admin: 01/21/20 10:22 Dose: 120 mls/hr Documented by: Dextrose (D10w) 1,000 mls @ 0 mls/hr IV .Q0M PRN PRN Reason: protocol (see label comments) Stop: 02/20/20 15:59 Lorazepam (Ativan) 0.5 mg in 1 mls @ 0.5 mls/min IV UD PRN PRN Reason: Agitation Stop: 02/19/20 16:47 Nutrition (Parenteral) 2,400 (ml/ TPN BAG) 2,400 mls @ 100 mls/hr IV .Q24H [facility]; Protocol Stop: 01/22/20 15:59 Insulin Aspart (Insulin Aspart 100 Units/Ml 3 Ml Pen) 0 units SC ACHS [facility] Stop: 02/11/20 19:59 Last Admin: 01/21/20 13:09 Dose: 7 units Documented by: Insulin Glargine (Insulin Glargine Solostar 100 Units/Ml 3 Ml Pen) 15 units SC QAM [facility] Stop: 02/18/20 20:59 Last Admin: 01/21/20 08:24 Dose: 15 units Documented by: Insulin Glargine (Insulin Glargine Solostar 100 Units/Ml 3 Ml Pen) 0 units SC HS [facility]; Protocol Stop: 02/20/20 20:59 Miscellaneous (Remove Nicoderm Patch) 1 ea N/A DAILY@0759 [facility] Stop: 02/13/20 07:58 Last Admin: 01/21/20 07:35 Dose: 1 ea Documented by: Miscellaneous (Carbohydrates For Hypoglycemia ) 15 - 30 gm PO UD PRN PRN Reason: Hypoglycemia Treatment Stop: 02/13/20 11:44 Last Admin: 01/19/20 08:45 Dose: 15 gm Documented by: Miscellaneous Information (Pharmacy Glycemic Mgmt Consult) 1 ea N/A UD PRN PRN Reason: Consult Stop: 02/11/20 19:57 Miscellaneous Information (Tpn/Ppn Consult Pharmacy) 1 ea N/A UD PRN PRN Reason: Consult Stop: 02/20/20 05:59 Nicotine (Nicotine 14 Mg/24 Hr Patch) 14 mg TD QAM@0800 [facility] Stop: 02/13/20 07:59 Last Admin: 01/21/20 07:36 Dose: 14 mg Documented by: Nicotine Polacrilex (Nicotine Polacrilex 2 Mg Gum) 1 piece MT TID PRN PRN Reason: nicotine craving Stop: 02/12/20 16:23 Ondansetron HCl (Ondansetron Inj 2 Mg/Ml 2 Ml Vial) 4 mg IV Q6H PRN PRN Reason: Nausea Stop: 02/11/20 19:06 Pantoprazole Sodium (Pantoprazole 40 Mg Tab) 40 mg PO BID@0800,2000 [facility] Stop: 02/11/20 19:59 Last Admin: 01/21/20 08:26 Dose: Not Given Documented by: PG Care Time/CCT Total # of Minutes Spent Total Time Spent with Patient: Total time spent is greater than 50% in coordination of care (as documented) at patient's floor/unit and/or counseling patient: Coding Level of Care Code 52707 Subseq Hosp Care Lvl 2 Diagnoses Metabolic encephalopathy G93.41 Pneumonia due to COVID-19 virus U07.1; J12.89 Acute respiratory failure with hypoxia J96.01 Sepsis A41.9 Thrombocytopenia D69.6 CKD (chronic kidney disease), stage III N18.3 Coronary artery disease I25.10 Coronary Disease-Associated Artery/Lesion type: [place] artery [place] vs. transplanted heart: [place] heart Associated angina: without angina Type 2 diabetes mellitus E11.22; N18.3 Diabetes mellitus alf insulin use: without alf use Diabetes mellitus complication status: with kidney complications Diabetes mellitus complication detail: with chronic kidney disease Chronic kidney disease stage: stage 3 (moderate) Hypertension I10 Hypertension type: essential hypertension Elevated troponin R77.8 Benign localized prostatic hyperplasia with lower urinary tract symptoms (LUTS) N40.1 Chews tobacco regularly Z72.0 Ear pain, left H92.02 Hypophosphatemia E83.39 GERD (gastroesophageal reflux disease) K21.9 DVT prophylaxis Z29.9 (1) Coronary artery disease Coronary Disease-Associated Artery/Lesion type: [place] artery [place] vs. transplanted heart: [place] heart Associated angina: without angina Qualified Code(s): I25.10 - Atherosclerotic heart disease of [place] coronary artery without angina pectoris (2) Type 2 diabetes mellitus Diabetes mellitus [employer] insulin use: without alf use Diabetes mellitus complication status: with kidney complications Diabetes mellitus complication detail: with chronic kidney disease Chronic kidney disease stage: stage 3 (moderate) Qualified Code(s): E11.22 - Type 2 diabetes mellitus with diabetic chronic kidney disease; N18.3 - Chronic kidney disease, stage 3 (moderate) (3) Hypertension Hypertension type: essential hypertension Qualified Code(s): I10 - Essential (primary) hypertension
[2020-01-21] MEDS ORDERED: Nursing to Pharmacy Communication SCH (14:15)
[2020-01-21] MEDS ORDERED: DEXTROSE 10% 1,000 ML IV PRN (16:00)
[2020-01-21] MEDS ORDERED: Custom Peripheral Pn 2,400 ML in TPN BAG 0 ML IV SCH (16:00)
[2020-01-21] MEDS: ATORVASTATIN 40 MG TAB PO SCH (21:09)
--- NOTE | 2020-01-22 03:35 | Communication Note ---
Date of Service: January 22, 2020 Was informed patient was made NPO earlier today because of inability to tolerate pills or food PO. Speech therapy consult placed, holding PO meds for now.
[2020-01-22] MEDS: haloperidoL 0.5 MG TAB PO SCH ×3 (04:15→20:40)
[2020-01-22] MEDS: INSULIN ASPART 100 UNITS/ML 3 ML PEN SC SCH ×4 (04:33→17:25)
[2020-01-22 09:35] LABS: BUN Creatinine Ratio 28.7 (10-20); Calcium 8.7 mg/dl (8.5-10.1); Creatinine Clr Calc Pharmacy 47.8 ml/min; Est GFR (African American) 65.3; Est GFR (Non-African American) 56.3; Phosphorus 2.8 mg/dl (2.5-4.9); Potassium 4.1 mmol/L (3.5-5.1)
[2020-01-22] MEDS: NICOTINE 14 MG/24 HR PATCH TD SCH (10:04)
[2020-01-22] MEDS: ENOXAPARIN INJ 30 MG/0.3 ML SYR SQ SCH ×2 (10:04→20:41)
[2020-01-22] MEDS: FAMOTIDINE 20 MG in SYRINGE 3 ML IV SCH ×2 (10:07→20:44)
[2020-01-22] MEDS: INSULIN GLARGINE SOLOSTAR 100 UNITS/ML 3 ML PEN SC SCH ×2 (10:41→20:41)
--- NOTE | 2020-01-22 12:36 | Hospitalist Progress Note ---
Date of Service January 22, 2020 Assessment & Plan (1) Metabolic encephalopathy: due to COVID 19, delirium Continue treatment with oxygen, redirection, supportive care possible that steroids are causing some confusion? however he came in with encephalopathy stopped Dexamethasone 01/19, no improvement in mental status spoke with Dr. 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 explained this to family on 01/19, 01/20 and 01/21 consult palliative care they spoke with family 01/20, for now they want short term trial of nutrition they want him to remain full code but would only want life support short term family will continue to discuss goals of care I had brought up home with hospice as probably the most reasonable option family meeting tomorrow over the phone (2) Pneumonia due to COVID-19 virus: Chest x-ray on admission had progressed significantly since his previous hospital stay a few days prior fluctuates between room air and 1L, no distress at all He has ongoing acute delirium secondary to Covid/acute illness, oriented to person only, requiring mitts due to pulling at lines He has ongoing very poor appetite with very minimal p.o. intake and is refusing his p.o. medications at times -stop Decadron 01/19 -was not a good candidate for remdesivir -- CrCl is nearly <30, and given he is 10+ days out from illness when he presented pneumonia clinically resolved (3) Acute respiratory failure with hypoxia: As above Continue supplemental O2 to keep pulse ox greater than 90% titrated to room air 01/17, intermittently needs 1L, no respiratory distress at all for days, denies dyspnea (4) Sepsis: 2nd to COVID-19. Now resolved Cannot rule out bacterial pneumonia either. Supportive care, IV antibiotics finished Ur cx with mixed sam BCxs -NGTD vitals stable, no fever, sepsis resolved (5) Thrombocytopenia: 2nd to COVID-19. resolved (6) CKD (chronic kidney disease), stage III: Baseline CrCL 30s/40s Cr is 1.16 today Avoid nephrotoxins Holding home Metformin check BMP regularly with plans for PPN (7) Coronary artery disease: no evidence of ACS, has a history of stents placed in 2019 Denies any chest pain cont COreg Continue statin -continue asa (8) Type 2 diabetes mellitus: pharmacy glycemic consult placed holding oral agents With hyperglycemia here and then severe hypoglycemia at times Very poor appetite at this point continue insulin as per pHarmacy plan for PPN for a few days (9) Hypertension: Blood pressures mildly elevated continue Coreg when he will take it (10) Elevated troponin: likely 2nd to myocardial demand ischemia in setting of sepsis/COVID-19 no ischemic sx's to suggest ACS Troponin 0 0.068 on admission and down to 0.035 the next morning No further work-up needed Has known severe CAD continue aspirin and beta-lucille when he will take it Continue statin (11) Benign localized prostatic hyperplasia with lower urinary tract symptoms (LUTS): not on meds for such at home Now has Vo catheter in place (12) Chews tobacco regularly: Added on nicotine patch and nicotine gum as needed (13) Ear pain, left: had some left ear pain on 01/13, resolved with tylenol (14) Hypophosphatemia: Replaced and resolved follow phos in AM (15) GERD (gastroesophageal reflux disease): Continue PPI and added Pepcid in the setting of corticosteroids for Covid (16) DVT prophylaxis: lovenox 30mg BID -- higher dose due to increased risk of VTE in setting of COVID-19 Disposition-continued stay, discussed with family that he will need 24/7 care they would like him to come home, hospice would be the most reasonable option certainly he would not live long without steady nutrition will remain full code, consult palliative care, they will follow Nutrition: try PPN for short term, he would not cooperate for PICC line family needs to discuss between themselves about what patient would want 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 already advised against PEG as he is constantly pulling at lines Admission and Anticipated Discharge Date Admission Date: January 12, 2020 Subjective patient continues to be confused did not remember his and daughter visiting yesterday when I asked him he is not in any distress he would not let speech therapy evaluate him this morning, mouth/tongue very dry long talk with his daughter Sadie over the phone explained that they cannot visit again as it was a one time approval for end of life visit as we are leaning towards hospice discussed that best option, only option, for recovery would be to go home on hospice being around familiar faces, his brain may improve and appetite may improve however, he may continue to decline I asked Sadie to speak with her mother and other family members to discuss options, if they feel they could care for [place] at home discussed that we should really change his code status to DNR as CPR and intubation would not offer him benefit in his current state of delirium and not eating she will talk with family we will talk again tomorrow afternoon I spoke with Felicita, business case analyst, about plans for hospice so she can start offering options to family Review of Systems Review of Systems: Unobtainable due to cognitive status Physical Exam Constitutional: well developed, well nourished and + frail appearing; no acute distress ENMT: Mouth: + dry oral mucous membranes Neck: trachea midline, no thyromegaly Respiratory: normal respiratory effort; no respiratory distress, no labored breathing and no cough Auscultation: no crackles, no rales, no rhonchi and no wheezes Cardiovascular: RRR, no murmur, no edema Gastrointestinal (Abdomen): normal bowel sounds, soft, nontender, no hepatosplenomegaly Musculoskeletal: Head/Neck/Chest: normocephalic, head atraumatic and neck supple Extremities: extremities normal to inspection and + abnormal strength (generalized weakness) Skin: no rashes, warm and dry Neurologic: CN's II-XI intact bilaterally, moves all extremities, awake and + confused; no focal motor deficits Psychiatric: Orientation: alert, oriented to person and + guarded; + not oriented to place and + not oriented to time Results & Data Results & Data ([facility]) Vital Signs (Past 12 Hours) Vital Signs Temp Pulse Resp BP BP Pulse Ox 01/22/20 10:19 36.3 C L 76 14 142/74 H 93 01/22/20 04:01 36.3 C L 80 16 129/79 92 Laboratory Results Laboratory Results - last 24 hr 01/12/20 01/21/20 01/21/20 16:30 15:50 21:34 Sodium Potassium Chloride Carbon Dioxide Anion Gap BUN Creatinine Est Cr Clr Drug Dosing Est GFR ( Amer) Est GFR (Non-Af Amer) BUN/Creatinine Ratio Glucose POC Glucose 184 H 118 H Calcium Phosphorus Magnesium Triglycerides Blood Type AB Positive Antibody Screen NEGATIVE 01/22/20 01/22/20 01/22/20 00:43 03:54 08:02 Sodium 142 Potassium 4.1 Chloride 115 H Carbon Dioxide 23 Anion Gap 4.0 BUN 33 H Creatinine 1.16 Est Cr Clr Drug Dosing 47.8 Est GFR ( Amer) 65.3 Est GFR (Non-Af Amer) 56.3 BUN/Creatinine Ratio 28.7 H Glucose 180 H POC Glucose 138 H 143 H Calcium 8.7 Phosphorus 2.8 Magnesium 2.0 Triglycerides 152 H Blood Type Antibody Screen 01/22/20 10:14 Sodium Potassium Chloride Carbon Dioxide Anion Gap BUN Creatinine Est Cr Clr Drug Dosing Est GFR ( Amer) Est GFR (Non-Af Amer) BUN/Creatinine Ratio Glucose POC Glucose 197 H Calcium Phosphorus Magnesium Triglycerides Blood Type Antibody Screen Medications Administered Current Inpatient Medications Acetaminophen (Acetaminophen 325 Mg Tab) 650 mg PO Q4H PRN PRN Reason: Pain Stop: 02/12/20 18:03 Albuterol (Albuterol Hfa 8 Gm Inhaler) 2 puffs INH Q6H PRN PRN Reason: Cough Stop: 02/14/20 08:54 Aspirin (Aspirin 81 Mg Ectab) 81 mg PO QAM [facility] Stop: 02/12/20 21:59 Last Admin: 01/21/20 08:26 Dose: Not Given Documented by: Atorvastatin Calcium (Atorvastatin 40 Mg Tab) 80 mg PO HS [facility] Stop: 02/13/20 20:59 Last Admin: 01/21/20 21:09 Dose: Not Given Documented by: Carvedilol (Carvedilol 25 Mg Tab) 25 mg PO BID@0800,2000 [facility] Stop: 02/13/20 07:59 Last Admin: 01/21/20 21:09 Dose: Not Given Documented by: Dextrose (Dextrose 50% 50 Ml Syringe) 25 - 50 ml IV UD PRN; Protocol PRN Reason: Hypoglycemia Protocol Stop: 02/13/20 11:44 Enoxaparin Sodium (Enoxaparin Inj 30 Mg/0.3 Ml Syr) 30 mg SQ Q12H [facility] Stop: 02/11/20 20:59 Last Admin: 01/22/20 10:04 Dose: 30 mg Documented by: Glucagon (Glucagon For Inj 1 Mg Vial) 1 mg IM UD PRN; Protocol PRN Reason: Hypoglycemia Protocol Stop: 02/13/20 11:44 Glucose (Glucose 40% Gel 15 Gm Tube) 15 - 30 gm PO UD PRN; Protocol PRN Reason: Hypoglycemia Protocol Stop: 02/13/20 11:44 Last Admin: 01/19/20 08:54 Dose: 15 gm Documented by: Glucose (Glucose 10 Tabs/Tube) 4 - 8 tabs PO UD PRN; Protocol PRN Reason: Hypoglycemia Protocol Stop: 02/13/20 11:44 Guaifenesin/Dextromethorphan (Guaifenesin/Dextrom Syrup 200mg/20mg 10ml Udc) 20 ml PO Q6H PRN PRN Reason: Cough Stop: 02/14/20 17:46 Haloperidol (Haloperidol 0.5 Mg Tab) 0.5 mg PO Q8H [facility] Stop: 02/20/20 11:59 Last Admin: 01/22/20 04:15 Dose: Not Given Documented by: Haloperidol Lactate (Haloperidol Lactate 5 Mg/Ml 1 Ml Vial) 2.5 mg IM Q12 PRN PRN Reason: Agitation Stop: 02/15/20 10:36 Hydralazine HCl (Hydralazine Hcl 20 Mg/Ml Vial) 10 mg IV Q8H PRN PRN Reason: SBP>180 Stop: 02/13/20 20:55 Last Admin: 01/17/20 08:15 Dose: 10 mg Documented by: Famotidine 20 mg/ Syringe 5 mls @ 2.5 mls/min IV Q12H [facility] Stop: 02/11/20 19:59 Last Admin: 01/22/20 10:07 Dose: 2.5 mls/min Documented by: Lorazepam (Ativan) 0.25 mg in 0.5 mls @ 0.5 mls/min IV Q4H PRN PRN Reason: anxiety Stop: 02/15/20 14:39 Last Admin: 01/20/20 04:00 Dose: 0.5 mls/min Documented by: Dextrose (D10w) 1,000 mls @ 0 mls/hr IV .Q0M PRN PRN Reason: protocol (see label comments) Stop: 02/20/20 15:59 Lorazepam (Ativan) 0.5 mg in 1 mls @ 0.5 mls/min IV UD PRN PRN Reason: Agitation Stop: 02/19/20 16:47 Nutrition (Parenteral) 2,400 (ml/ TPN BAG) 2,400 mls @ 100 mls/hr IV .Q24H [facility]; Protocol Stop: 01/22/20 15:59 Last Admin: 01/21/20 15:52 Dose: 100 mls/hr Documented by: Nutrition (Parenteral) 2,400 (ml/ TPN BAG) 2,400 mls @ 100 mls/hr IV .Q24H [facility]; Protocol Stop: 01/23/20 15:59 Insulin Aspart (Insulin Aspart 100 Units/Ml 3 Ml Pen) 0 units SC Q6H [facility] Stop: 02/11/20 19:59 Last Admin: 01/22/20 10:40 Dose: 3 units Documented by: Insulin Glargine (Insulin Glargine Solostar 100 Units/Ml 3 Ml Pen) 15 units SC QAM [facility] Stop: 02/18/20 20:59 Last Admin: 01/22/20 10:41 Dose: 15 units Documented by: Insulin Glargine (Insulin Glargine Solostar 100 Units/Ml 3 Ml Pen) 0 units SC HS [facility]; Protocol Stop: 02/20/20 20:59 Last Admin: 01/21/20 22:27 Dose: Not Given Documented by: Miscellaneous (Remove Nicoderm Patch) 1 ea N/A DAILY@0759 [facility] Stop: 02/13/20 07:58 Last Admin: 01/22/20 10:04 Dose: 1 ea Documented by: Miscellaneous (Carbohydrates For Hypoglycemia ) 15 - 30 gm PO UD PRN PRN Reason: Hypoglycemia Treatment Stop: 02/13/20 11:44 Last Admin: 01/19/20 08:45 Dose: 15 gm Documented by: Miscellaneous Information (Pharmacy Glycemic Mgmt Consult) 1 ea N/A UD PRN PRN Reason: Consult Stop: 02/11/20 19:57 Miscellaneous Information (Tpn/Ppn Consult Pharmacy) 1 ea N/A UD PRN PRN Reason: Consult Stop: 02/20/20 05:59 Nicotine (Nicotine 14 Mg/24 Hr Patch) 14 mg TD QAM@0800 [facility] Stop: 02/13/20 07:59 Last Admin: 01/22/20 10:04 Dose: 14 mg Documented by: Nicotine Polacrilex (Nicotine Polacrilex 2 Mg Gum) 1 piece MT TID PRN PRN Reason: nicotine craving Stop: 02/12/20 16:23 Ondansetron HCl (Ondansetron Inj 2 Mg/Ml 2 Ml Vial) 4 mg IV Q6H PRN PRN Reason: Nausea Stop: 02/11/20 19:06 Pantoprazole Sodium (Pantoprazole 40 Mg Tab) 40 mg PO BID@0800,1999 [facility] Stop: 02/11/20 19:59 Last Admin: 01/21/20 21:00 Dose: Not Given Documented by: PG Care Time/CCT Total # of Minutes Spent Total Time Spent: 35 Total Time Spent with Patient: Total time spent is greater than 50% in coordination of care (as documented) at patient's floor/unit and/or counseling patient: 15 minutes on exam, review of chart, documentation, discussing plan with RN and CM 20 minute conversation with patient's daughter Sadie to discuss goals of care, options for hospice Prolonged Care Time Prolonged Care Time: No Coding Level of Care Code 34420 Subseq Hosp Care Lvl 3 Diagnoses Metabolic encephalopathy G93.41 Pneumonia due to COVID-19 virus U07.1; J12.89 Acute respiratory failure with hypoxia J96.01 Sepsis A41.9 Thrombocytopenia D69.6 CKD (chronic kidney disease), stage III N18.3 Coronary artery disease I25.10 Coronary Disease-Associated Artery/Lesion type: false pass artery [place] vs. 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 insulin use: without 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 use Diabetes mellitus complication status: with kidney complications Diabetes mellitus complication detail: with chronic kidney disease Chronic kidney disease stage: stage 3 (moderate) Hypertension I10 Hypertension type: essential hypertension Elevated troponin R77.8 Benign localized prostatic hyperplasia with lower urinary tract symptoms (LUTS) N40.1 Chews tobacco regularly Z72.0 Ear pain, left H92.02 Hypophosphatemia E83.39 GERD (gastroesophageal reflux disease) K21.9 DVT prophylaxis Z29.9 (1) Coronary artery disease Coronary Disease-Associated Artery/Lesion type: false pass artery [place] vs. transplanted heart: false pass heart Associated angina: without angina Qualified Code(s): I25.10 - Atherosclerotic heart disease of false pass coronary artery without angina pectoris (2) Type 2 diabetes mellitus Diabetes mellitus detention insulin use: without detention use Diabetes mellitus complication status: with kidney complications Diabetes mellitus complication detail: with chronic kidney disease Chronic kidney disease stage: stage 3 (moderate) Qualified Code(s): E11.22 - Type 2 diabetes mellitus with diabetic chronic kidney disease; N18.3 - Chronic kidney disease, stage 3 (moderate) (3) Hypertension Hypertension type: essential hypertension Qualified Code(s): I10 - Essential (primary) hypertension
[2020-01-22] MEDS ORDERED: Custom Peripheral Pn 2,400 ML in TPN BAG 0 ML IV SCH (16:00)
[2020-01-23] MEDS: INSULIN ASPART 100 UNITS/ML 3 ML PEN SC SCH ×4 (00:35→19:17)
[2020-01-23] MEDS: haloperidoL 0.5 MG TAB PO SCH ×3 (00:49→20:53)
[2020-01-23 07:03] LABS: BUN Creatinine Ratio 30.5 (10-20); Calcium 8.3 mg/dl (8.5-10.1); Creatinine Clr Calc Pharmacy 50.4 ml/min; Est GFR (African American) 69.6; Phosphorus 2.8 mg/dl (2.5-4.9); Potassium 4.5 mmol/L (3.5-5.1)
[2020-01-23] MEDS ORDERED: INSULIN GLARGINE SOLOSTAR 100 UNITS/ML 3 ML PEN SC SCH (08:00)
[2020-01-23] MEDS: ENOXAPARIN INJ 30 MG/0.3 ML SYR SQ SCH ×2 (08:28→21:00)
[2020-01-23] MEDS: NICOTINE 14 MG/24 HR PATCH TD SCH (08:28)
[2020-01-23] MEDS: FAMOTIDINE 20 MG in SYRINGE 3 ML IV SCH ×2 (08:30→20:55)
--- NOTE | 2020-01-23 14:54 | Hospitalist Progress Note ---
Date of Service January 23, 2020 Assessment & Plan (1) Metabolic encephalopathy: due to COVID 19, delirium Continue treatment with oxygen, redirection, supportive care no real improvement over the past 10 days possible that steroids were causing some confusion? however he came in with encephalopathy stopped Dexamethasone 01/19, no improvement in mental status spoke with Dr. Mcleod, neurology, many cases of COVID delirium are well documented currently being studied, unsure of the custodial effects when patients have delirium could be weeks, months, permanent? explained this to family on 01/19, 01/20 and 01/21 and 01/22 consult palliative care they spoke with family 01/20, for now they want short term trial of nutrition they want him to remain full code but would only want life support short term ask palliative care to talk with family again on 01/23, will need POLST family is now agreeable to going home on hospice, understand he will probably decline further going home is probably only chance he will start eating, improve cognition (2) Dysphagia: won't eat, did not participate with speech therapy I witnessed him cough and choke on thin liquids when he agreed to take a sip of liquid for family certainly high risk for aspiration consider thrush? mouth and tongue extremely dry, cannot see the back of throat will start on Diflucan 100mg IV while still here ask RN to swab mouth with Nystatin QID on discharge, should have aspiration precaution instructions (3) Pneumonia due to COVID-19 virus: Chest x-ray on admission had progressed significantly since his previous hospital stay a few days prior fluctuates between room air and 1L, no distress at all He has ongoing acute delirium secondary to Covid/acute illness, oriented to person only, requiring mitts due to pulling at lines He has ongoing very poor appetite with very minimal p.o. intake and is refusing his p.o. medications at times -stop Decadron 01/19 -was not a good candidate for remdesivir -- CrCl is nearly <30, and given he is 10+ days out from illness when he presented pneumonia clinically resolved (4) Acute respiratory failure with hypoxia: As above Continue supplemental O2 to keep pulse ox greater than 90% titrated to room air 01/17, intermittently needs 1L, no respiratory distress at all for days, denies dyspnea can supply oxygen at home for comfort (5) Sepsis: 2nd to COVID-19. Now resolved Cannot rule out bacterial pneumonia either. Supportive care, IV antibiotics finished Ur cx with mixed sam BCxs -NGTD vitals stable, no fever, sepsis resolved (6) Thrombocytopenia: 2nd to COVID-19. resolved (7) CKD (chronic kidney disease), stage III: Baseline CrCL 30s/40s Cr is 1.10 today electrolytes stable Avoid nephrotoxins Holding home Metformin check BMP regularly with plans for PPN (8) Coronary artery disease: no evidence of ACS, has a history of stents placed in 2019 Denies any chest pain cont COreg Continue statin -continue asa (9) Type 2 diabetes mellitus: pharmacy glycemic consult placed holding oral agents With hyperglycemia here and then severe hypoglycemia at times Very poor appetite at this point continue insulin as per pHarmacy plan for PPN for a few days (10) Hypertension: Blood pressures mildly elevated continue Coreg when he will take it (11) Elevated troponin: likely 2nd to myocardial demand ischemia in setting of sepsis/COVID-19 no ischemic sx's to suggest ACS Troponin 0 0.068 on admission and down to 0.035 the next morning No further work-up needed Has known severe CAD continue aspirin and beta-lucille when he will take it Continue statin (12) Benign localized prostatic hyperplasia with lower urinary tract symptoms (LUTS): not on meds for such at home Now has Dennis catheter in place discussed with daughter, can go home with dennis to make care easier (13) Chews tobacco regularly: Added on nicotine patch and nicotine gum as needed (14) Ear pain, left: had some left ear pain on 12/, resolved with tylenol (15) Hypophosphatemia: Replaced and resolved follow phos in AM (16) GERD (gastroesophageal reflux disease): Continue PPI and added Pepcid in the setting of corticosteroids for Covid (17) DVT prophylaxis: lovenox 30mg BID -- higher dose due to increased risk of VTE in setting of COVID-19 Disposition-continued stay, discussed with family that he will need 24/7 care they would like him to come home, hospice would be the most reasonable option certainly he would not live long without steady nutrition will remain full code, consult palliative care, they will follow needs POLST form completed prior to discharge, family understands he should be DNR on discharge Nutrition: try PPN for short term while still admitted, he would not cooperate for PICC line already advised against PEG as he is constantly pulling at lines and is confused should be ready for discharge Friday/Friday, as soon as hospice can deliver equipment (bed and oxygen) Admission and Anticipated Discharge Date Admission Date: January 12, 2020 Subjective patient still confused, won't cooperate, won't eat or drink at all discussed with speech therapy, family can try to feed at home, aspiration risk long talk with his and daughter over the phone they are in agreement with hospice at home as only option they will encourage him to eat and they are hopeful family and familiar environment will spark his cognition I will ask palliative care to discuss POLST with them prior to discharge, he s hould be DNR/DNI on discharge will continue PPN for now, they asked about artificial nutrition after discharge I explained that it would not fit with goals of hospice, they understand we had previously addressed that PEG tube likely not safe due to him pulling at lines/IV all the time and needing mitts I discussed plan for hospice with CM, they should reach out to family tomorrow morning, select agency get process started of getting hospital bed, home oxygen Review of Systems Review of Systems: Unobtainable due to cognitive status Physical Exam Constitutional: well developed, well nourished and + frail appearing; no acute distress ENMT: Mouth: + dry oral mucous membranes (extremely dry) Neck: trachea midline, no thyromegaly Respiratory: normal respiratory effort; no respiratory distress, no labored breathing and no cough Auscultation: no crackles, no rales, no rhonchi and no wheezes Cardiovascular: RRR, no murmur, no edema Gastrointestinal (Abdomen): normal bowel sounds, soft, nontender, no hepatosplenomegaly Musculoskeletal: Head/Neck/Chest: normocephalic, head atraumatic and neck supple Extremities: extremities normal to inspection and + abnormal strength (generalized weakness) Skin: no rashes, warm and dry Neurologic: CN's II-XI intact bilaterally, moves all extremities, awake and + confused; no focal motor deficits Psychiatric: Orientation: alert, oriented to person and + guarded; + not oriented to place and + not oriented to time Results & Data Results & Data ([facility]) Vital Signs (Past 12 Hours) Vital Signs Temp Pulse Resp BP BP Pulse Ox 01/23/20 08:07 117/71 01/23/20 07:08 37.3 C 93 H 20 187/87 H 96 Laboratory Results Laboratory Results - last 24 hr 01/22/20 01/22/20 01/23/20 17:19 20:36 00:29 Sodium Potassium Chloride Carbon Dioxide Anion Gap BUN Creatinine Est Cr Clr Drug Dosing Est GFR ( Amer) Est GFR (Non-Af Amer) BUN/Creatinine Ratio Glucose POC Glucose 184 H 228 H 214 H Calcium Phosphorus Magnesium 01/23/20 01/23/20 01/23/20 05:52 06:02 11:52 Sodium 137 Potassium 4.5 Chloride 108 H Carbon Dioxide 24 Anion Gap 5.0 BUN 34 H Creatinine 1.10 Est Cr Clr Drug Dosing 50.4 Est GFR ( Amer) 69.6 Est GFR (Non-Af Amer) 60.0 BUN/Creatinine Ratio 30.5 H Glucose 208 H POC Glucose 198 H 278 H Calcium 8.3 L Phosphorus 2.8 Magnesium 2.0 Medications Administered Current Inpatient Medications Acetaminophen (Acetaminophen 325 Mg Tab) 650 mg PO Q4H PRN PRN Reason: Pain Stop: 02/12/20 18:03 Albuterol (Albuterol Hfa 8 Gm Inhaler) 2 puffs INH Q6H PRN PRN Reason: Cough Stop: 02/14/20 08:54 Aspirin (Aspirin 81 Mg Ectab) 81 mg PO QAM [facility] Stop: 02/12/20 21:59 Last Admin: 01/21/20 08:26 Dose: Not Given Documented by: Atorvastatin Calcium (Atorvastatin 40 Mg Tab) 80 mg PO HS [facility] Stop: 02/13/20 20:59 Last Admin: 01/21/20 21:09 Dose: Not Given Documented by: Carvedilol (Carvedilol 25 Mg Tab) 25 mg PO BID@0800,2000 [facility] Stop: 02/13/20 07:59 Last Admin: 01/21/20 21:09 Dose: Not Given Documented by: Dextrose (Dextrose 50% 50 Ml Syringe) 25 - 50 ml IV UD PRN; Protocol PRN Reason: Hypoglycemia Protocol Stop: 02/13/20 11:44 Enoxaparin Sodium (Enoxaparin Inj 30 Mg/0.3 Ml Syr) 30 mg SQ Q12H [facility] Stop: 02/11/20 20:59 Last Admin: 01/23/20 08:28 Dose: 30 mg Documented by: Glucagon (Glucagon For Inj 1 Mg Vial) 1 mg IM UD PRN; Protocol PRN Reason: Hypoglycemia Protocol Stop: 02/13/20 11:44 Glucose (Glucose 40% Gel 15 Gm Tube) 15 - 30 gm PO UD PRN; Protocol PRN Reason: Hypoglycemia Protocol Stop: 02/13/20 11:44 Last Admin: 01/19/20 08:54 Dose: 15 gm Documented by: Glucose (Glucose 10 Tabs/Tube) 4 - 8 tabs PO UD PRN; Protocol PRN Reason: Hypoglycemia Protocol Stop: 02/13/20 11:44 Guaifenesin/Dextromethorphan (Guaifenesin/Dextrom Syrup 200mg/20mg 10ml Udc) 20 ml PO Q6H PRN PRN Reason: Cough Stop: 02/14/20 17:46 Haloperidol (Haloperidol 0.5 Mg Tab) 0.5 mg PO Q8H [facility] Stop: 02/20/20 11:59 Last Admin: 01/23/20 11:29 Dose: Not Given Documented by: Haloperidol Lactate (Haloperidol Lactate 5 Mg/Ml 1 Ml Vial) 2.5 mg IM Q12 PRN PRN Reason: Agitation Stop: 02/15/20 10:36 Hydralazine HCl (Hydralazine Hcl 20 Mg/Ml Vial) 10 mg IV Q8H PRN PRN Reason: SBP>180 Stop: 02/13/20 20:55 Last Admin: 01/17/20 08:15 Dose: 10 mg Documented by: Famotidine 20 mg/ Syringe 5 mls @ 2.5 mls/min IV Q12H [facility] Stop: 02/11/20 19:59 Last Admin: 01/23/20 08:30 Dose: 2.5 mls/min Documented by: Lorazepam (Ativan) 0.25 mg in 0.5 mls @ 0.5 mls/min IV Q4H PRN PRN Reason: anxiety Stop: 02/15/20 14:39 Last Admin: 01/20/20 04:00 Dose: 0.5 mls/min Documented by: Dextrose (D10w) 1,000 mls @ 0 mls/hr IV .Q0M PRN PRN Reason: protocol (see label comments) Stop: 02/20/20 15:59 Lorazepam (Ativan) 0.5 mg in 1 mls @ 0.5 mls/min IV UD PRN PRN Reason: Agitation Stop: 02/19/20 16:47 Nutrition (Parenteral) 2,400 (ml/ TPN BAG) 2,400 mls @ 100 mls/hr IV .Q24H DERICK; Protocol Stop: 01/23/20 15:59 Last Infusion: 01/23/20 03:48 Dose: 100 mls/hr Documented by: Nutrition (Parenteral) 2,400 (ml/ TPN BAG) 2,400 mls @ 100 mls/hr IV .Q24H DERICK; Protocol Stop: 01/24/20 15:59 Fluconazole (Diflucan) 100 mg in 50 mls @ 100 mls/hr IV DAILY [facility]; Protocol Stop: 02/02/20 14:59 Insulin Aspart (Insulin Aspart 100 Units/Ml 3 Ml Pen) 0 units SC Q6H [facility] Stop: 02/11/20 19:59 Last Admin: 01/23/20 12:38 Dose: 10 units Documented by: Insulin Glargine (Insulin Glargine Solostar 100 Units/Ml 3 Ml Pen) 0 units SC HS [facility]; Protocol Stop: 02/20/20 20:59 Last Admin: 01/22/20 20:41 Dose: 10 units Documented by: Insulin Glargine (Insulin Glargine Solostar 100 Units/Ml 3 Ml Pen) 20 units SC QAM [facility] Stop: 02/22/20 07:59 Last Admin: 01/23/20 08:28 Dose: 20 units Documented by: Miscellaneous (Remove Nicoderm Patch) 1 ea N/A DAILY@0759 [facility] Stop: 02/13/20 07:58 Last Admin: 01/23/20 08:28 Dose: 1 ea Documented by: Miscellaneous (Carbohydrates For Hypoglycemia ) 15 - 30 gm PO UD PRN PRN Reason: Hypoglycemia Treatment Stop: 02/13/20 11:44 Last Admin: 01/19/20 08:45 Dose: 15 gm Documented by: Miscellaneous Information (Pharmacy Glycemic Mgmt Consult) 1 ea N/A UD PRN PRN Reason: Consult Stop: 02/11/20 19:57 Miscellaneous Information (Tpn/Ppn Consult Pharmacy) 1 ea N/A UD PRN PRN Reason: Consult Stop: 02/20/20 05:59 Nicotine (Nicotine 14 Mg/24 Hr Patch) 14 mg TD QAM@0800 [facility] Stop: 02/13/20 07:59 Last Admin: 01/23/20 08:28 Dose: 14 mg Documented by: Nicotine Polacrilex (Nicotine Polacrilex 2 Mg Gum) 1 piece MT TID PRN PRN Reason: nicotine craving Stop: 02/12/20 16:23 Nystatin (Nystatin Susp 500,000 U/5 Ml Udc) 5 ml PO QID [facility] Stop: 02/02/20 16:59 Ondansetron HCl (Ondansetron Inj 2 Mg/Ml 2 Ml Vial) 4 mg IV Q6H PRN PRN Reason: Nausea Stop: 02/11/20 19:06 Pantoprazole Sodium (Pantoprazole 40 Mg Tab) 40 mg PO BID@799,1999 [facility] Stop: 02/11/20 19:59 Last Admin: 01/21/20 21:00 Dose: Not Given Documented by: PG Care Time/CCT Total # of Minutes Spent Total Time Spent: 33 Total Time Spent with Patient: Total time spent is greater than 50% in coordination of care (as documented) at patient's floor/unit and/or counseling patient: 20 minutes on the phone with family discussing plan of care 13 minutes on chart review, documentation Coding Level of Care Code 24844 Subseq Hosp Care Lvl 3 Diagnoses Metabolic encephalopathy G93.41 Dysphagia R13.10 Pneumonia due to COVID-19 virus U07.1; J12.89 Acute respiratory failure with hypoxia J96.01 Sepsis A41.9 Thrombocytopenia D69.6 CKD (chronic kidney disease), stage III N18.3 Coronary artery disease I25.10 Associated angina: without angina Coronary Disease-Associated Artery/Lesion type: wiyot artery [place] vs. transplanted heart: wiyot heart Type 2 diabetes mellitus E11.22; N18.3 Chronic kidney disease stage: stage 3 (moderate) Diabetes mellitus complication detail: with chronic kidney disease Diabetes mellitus complication status: with kidney complications Diabetes mellitus custodial insulin use: without enterprise project manager use Hypertension I10 Hypertension type: essential hypertension Elevated troponin R77.8 Benign localized prostatic hyperplasia with lower urinary tract symptoms (LUTS) N40.1 Chews tobacco regularly Z72.0 Ear pain, left H92.02 Hypophosphatemia E83.39 GERD (gastroesophageal reflux disease) K21.9 DVT prophylaxis Z29.9 (1) Type 2 diabetes mellitus Chronic kidney disease stage: stage 3 (moderate) Diabetes mellitus complication detail: with chronic kidney disease Diabetes mellitus complication status: with kidney complications Diabetes mellitus enterprise project manager insulin use: without enterprise project manager use Qualified Code(s): E11.22 - Type 2 diabetes mellitus with diabetic chronic kidney disease; N18.3 - Chronic kidney disease, stage 3 (moderate) (2) Coronary artery disease Associated angina: without angina Coronary Disease-Associated Artery/Lesion type: wiyot artery [place] vs. transplanted heart: wiyot heart Qualified Code(s): I25.10 - Atherosclerotic heart disease of wiyot coronary artery without angina pectoris (3) Hypertension Hypertension type: essential hypertension Qualified Code(s): I10 - Essential (primary) hypertension
--- NOTE | 2020-01-23 15:33 | Pharmacy Report ---
Pharmacy Glycemic Short Note 2 - Date of Service January 23, 2020 - Glycemic Short BSG Results (Last 24 hours): 01/22/20 01/22/20 01/23/20 17:19 20:36 00:29 Glucose POC Glucose 184 H 228 H 214 H 01/23/20 01/23/20 01/23/20 05:52 06:02 11:52 Glucose 208 H POC Glucose 198 H 278 H OUTPATIENT ANTIDIABETIC REGIMEN: * amaryl, metformin, januvia * HbA1c: 9.7% (11/29/19) ASSESSMENT: 01/22: * Patient received total 49 units of insulin yesterday; 25 units basal and 14 units bolus, and 10 units of regular insulin in TPN bag IV over 24 hrs. * Fasting BSG this AM was 198 mg/dl. Lantus dose this AM was increased. HS Lantus dose continued the same. * Post-prandial BSGs have also been elevated. Novolog CF tightened. PLAN FOR INPATIENT GLYCEMIC CONTROL: * Hold outpatient oral diabetes medications * Basal insulin - increased * Lantus 20 units SQ QAM * Lantus scale this evening to provide 0-10 units (see EHR for details) * Bolus insulin - tighten correction factor * NovoLog per scale ACHS or Q6hrs while NPO * Goal Range: Low 110 mg/dL - High 140 mg/dL * Correction Factor: 15 mg/dL/unit * Nutritional / Prandial insulin per carb ratio of 1 unit per 8 grams CHO consumed * PPN * Bag to provide 150 g of dextrose/24 hours * Added Regular insulin 15 units (0.1 unit/g of dextrose) to bag PLAN FOR DISCHARGE: * tbd - will depend on goals of care at discharge
[2020-01-23] MEDS ORDERED: Custom Peripheral Pn 2,400 ML in TPN BAG 0 ML IV SCH (16:00)
[2020-01-23] MEDS: FLUCONAZOLE 100 MG/50 ML BAG IV SCH (16:21)
[2020-01-23] MEDS: hydrALAZINE HCL 20 MG/ML VIAL IV PRN (16:44)
[2020-01-23] MEDS: NYSTATIN SUSP 500,000 U/5 ML UDC PO SCH ×2 (18:01→20:53)
[2020-01-24] MEDS: INSULIN ASPART 100 UNITS/ML 3 ML PEN SC SCH ×4 (00:10→17:50)
[2020-01-24] MEDS: INSULIN GLARGINE SOLOSTAR 100 UNITS/ML 3 ML PEN SC SCH ×3 (00:10→17:52)
[2020-01-24] MEDS: haloperidoL 0.5 MG TAB PO SCH ×3 (03:22→17:55)
[2020-01-24 08:46] LABS: BUN Creatinine Ratio 30.2 (10-20); Calcium 8.7 mg/dl (8.5-10.1); Creatinine Clr Calc Pharmacy 43.3 ml/min; Est GFR (African American) 57.9; Magnesium 2.3 mg/dl (1.8-2.4); Phosphorus 3.3 mg/dl (2.5-4.9); Potassium 4.2 mmol/L (3.5-5.1)
[2020-01-24] MEDS: ENOXAPARIN INJ 30 MG/0.3 ML SYR SQ SCH ×2 (08:48→19:44)
[2020-01-24] MEDS: NICOTINE 14 MG/24 HR PATCH TD SCH (08:48)
[2020-01-24] MEDS: NYSTATIN SUSP 500,000 U/5 ML UDC PO SCH ×5 (08:48→19:46)
[2020-01-24] MEDS: FAMOTIDINE 20 MG in SYRINGE 3 ML IV SCH ×2 (08:49→20:07)
--- NOTE | 2020-01-24 11:00 | Palliative Care Progress Note ---
Date of Service January 24, 2020 Assessment & Plan (1) Palliative care encounter: I was able to meet with [place] today. He was resting comfortably in no apparent distress. I was able to speak with Chula on the phone at length. We talked at length about his nutritional status and that she would like to continue TPN or PPN if possible for short term. We discussed risk vs benefits and overall large picture approach to tube feeding being beneficial in his care. That being said, I understand a main goal is for him to return home and evaluate if his COVID delirium improves. We talked about hospice and how it would benefit Cleveland. Unfortunately, TPN will likely need to be discontinued, but we can check if any agency allowed short term TPN. Chula mentioned that she has two adult sons and two adult daughters that all live close and will be rotating staying with Cleveland and Chula to help upon his return home with hospice. Katelyn, primarily will be the main caregiver with Chula. I did discuss supplemental caregivers and case management will provide a list for her. I do not feel he would need a private caregiver in order for him to return home, but mostly for added support if necessary. We did complete a POLST form that indicated DNR/DNI (ONCE DISCHARGED FROM THE HOSPITAL), comfort measures only, trial abx and trial artificial nutrition/hydration. For now, Chula would like [place] to remain a full code while admitted and transition to DNR upon discharge. I spoke with Asha in case management who will reach out to Chula to discuss hospice agency and equipment needs further. Palliative care will follow to continue to provide support for the family as they make this transition. (2) Metabolic encephalopathy: (3) COVID-19: Admission and Anticipated Discharge Date Admission Date: January 12, 2020 Subjective Pt does not express any complaints at this time. Please see A/P for further details regarding plan of care. Review of Systems Review of Systems: [place] Symptom Assessment Scale Pain 0/3 Dyspnea 0/3 Palliative Performance Scale 30% Physical Exam Constitutional: + altered mental status Respiratory: no labored breathing Cardiovascular: Extremities: no edema Musculoskeletal: Extremities: strength 5/5 throughout Skin: no rashes, warm and dry Psychiatric: Orientation: alert; + not oriented x 3 Thought Content: + paranoid Results & Data ([facility]) Vital Signs (Past 12 Hours) Vital Signs Temp Pulse Pulse Resp BP BP Pulse Ox 12/14/20 07:09 36.6 C 87 18 119/66 92 01/24/20 00:00 36.7 C 92 H 18 124/76 91 PG Care Time/CCT Total # of Minutes Spent Total Time Spent with Patient: Total time spent is greater than 50% in coordination of care (as documented) at patient's floor/unit and/or counseling p atient: 45 Coding Level of Care Code 57183 Subseq Hosp Care Lvl 3 Diagnoses Palliative care encounter Z51.5 Metabolic encephalopathy G93.41 COVID-19 U07.1 Time Spent (min) 45 Time Spent Midlevel Total time spent 45 minutes with > 50% of that time spent assessing the patient, discussing goals of care and collaborating with IDT.
--- NOTE | 2020-01-24 13:40 | Hospitalist Progress Note ---
Date of Service January 24, 2020 Assessment & Plan (1) Metabolic encephalopathy: due to COVID 19, delirium Continue treatment with oxygen, redirection, supportive care no real improvement over the past 10 days possible that steroids were causing some confusion? however he came in with encephalopathy stopped Dexamethasone 01/19, no improvement in mental status spoke with Dr. Mcleod, neurology, many cases of COVID delirium are well documented currently being studied, unsure of the fdc effects when patients have delirium could be weeks, months, permanent? explained this to family on 01/19, 01/20 and 01/21 and 01/22 consult palliative care they spoke with family 01/20, for now they want short term trial of nutrition they want him to remain full code but would only want life support short term ask palliative care to talk with family again on 01/23, will need POLST family is now agreeable to going home on hospice, understand he will probably decline further going home is probably only chance he will start eating, improve cognition. No change today. Still plan for home with hospice when set up. (2) Dysphagia: won't eat, did not participate with speech therapy I witnessed him cough and choke on thin liquids when he agreed to take a sip of liquid for family certainly high risk for aspiration consider thrush? mouth and tongue extremely dry, cannot see the back of throat will start on Diflucan 100mg IV while still here ask RN to swab mouth with Nystatin QID on discharge, should have aspiration precaution instructions (3) Pneumonia due to COVID-19 virus: Chest x-ray on admission had progressed significantly since his previous hospital stay a few days prior fluctuates between room air and 1L, no distress at all He has ongoing acute delirium secondary to Covid/acute illness, oriented to person only, requiring mitts due to pulling at lines He has ongoing very poor appetite with very minimal p.o. intake and is refusing his p.o. medications at times -stop Decadron 01/19 -was not a good candidate for remdesivir -- CrCl is nearly <30, and given he is 10+ days out from illness when he presented pneumonia clinically resolved (4) Acute respiratory failure with hypoxia: As above Continue supplemental O2 to keep pulse ox greater than 90% titrated to room air 01/17, intermittently needs 1L, no respiratory distress at all for days, denies dyspnea can supply oxygen at home for comfort (5) Sepsis: 2nd to COVID-19. Now resolved Cannot rule out bacterial pneumonia either. Supportive care, IV antibiotics finished Ur cx with mixed sam BCxs -NGTD vitals stable, no fever, sepsis resolved (6) Thrombocytopenia: 2nd to COVID-19. resolved (7) CKD (chronic kidney disease), stage III: Baseline CrCL 30s/40s Cr is 1.10 today electrolytes stable Avoid nephrotoxins Holding home Metformin check BMP regularly with plans for PPN (8) Coronary artery disease: no evidence of ACS, has a history of stents placed in 2019 Denies any chest pain cont COreg Continue statin -continue asa (9) Type 2 diabetes mellitus: pharmacy glycemic consult placed holding oral agents With hyperglycemia here and then severe hypoglycemia at times Very poor appetite at this point continue insulin as per pHarmacy plan for PPN for a few days -> Possibly stop tomorrow. (10) Hypertension: Blood pressures mildly elevated continue Coreg when he will take it (11) Elevated troponin: likely 2nd to myocardial demand ischemia in setting of sepsis/COVID-19 no ischemic sx's to suggest ACS Troponin 0 0.068 on admission and down to 0.035 the next morning No further work-up needed Has known severe CAD continue aspirin and beta-lucille when he will take it Continue statin (12) Benign localized prostatic hyperplasia with lower urinary tract symptoms (LUTS): not on meds for such at home Now has Dennis catheter in place discussed with daughter, can go home with dennis to make care easier (13) Chews tobacco regularly: Added on nicotine patch and nicotine gum as needed (14) Ear pain, left: had some left ear pain on 01/13, resolved with tylenol (15) Hypophosphatemia: Replaced and resolved follow phos in AM (16) GERD (gastroesophageal reflux disease): Continue PPI and added Pepcid in the setting of corticosteroids for Covid (17) DVT prophylaxis: lovenox 30mg BID -- higher dose due to increased risk of VTE in setting of COVID-19 Disposition-continued stay, discussed with family that he will need 24/7 care they would like him to come home, hospice would be the most reasonable option certainly he would not live long without steady nutrition will remain full code, consult palliative care, they will follow needs POLST form completed prior to discharge, family understands he should be DNR on discharge Nutrition: try PPN for short term while still admitted, he would not cooperate for PICC line already advised against PEG as he is constantly pulling at lines and is confused should be ready for discharge Friday/Friday, as soon as hospice can deliver equipment (bed and oxygen) Admission and Anticipated Discharge Date Admission Date: January 12, 2020 Subjective Reports some pain in the back. Otherwise, reports no fevers/chills, chest pain, shortness of breath, abdominal pain, nausea, or vomiting. Physical Exam Constitutional: WD/WN, vitals as above Eyes: EOM intact bilaterally; no conjunctival abnormality ENMT: external ear and nose normal, oropharynx normal Neck: trachea midline, no thyromegaly normal visual inspection Respiratory: normal respiratory effort, lungs clear to auscultation no respiratory distress Cardiovascular: RRR, no murmur, no edema Gastrointestinal (Abdomen): Inspection/Auscultation: abdomen normal to inspection; abdomen not distended Musculoskeletal: no cyanosis or clubbing, extremities motor strength 5/5 Skin: no rashes, warm and dry Neurologic: moves all extremities and awake Psychiatric: Orientation: alert, oriented to person and cooperative Results & Data Results & [facility] ([facility]) Vital Signs (Past 12 Hours) Vital Signs Temp Pulse Resp BP Pulse Ox 01/24/20 07:09 36.6 C 87 18 119/66 92 PG Care Time/CCT Total # of Minutes Spent Total Time Spent with Patient: Total time spent is greater than 50% in coordination of care (as documented) at patient's floor/unit and/or counseling patient: Coding Level of Care Code 94387 Subseq Hosp Care Lvl 2 Diagnoses Metabolic encephalopathy G93.41 Dysphagia R13.10 Pneumonia due to COVID-19 virus U07.1; J12.89 Acute respiratory failure with hypoxia J96.01 Sepsis A41.9 Thrombocytopenia D69.6 CKD (chronic kidney disease), stage III N18.3 Coronary artery disease I25.10 Coronary Disease-Associated Artery/Lesion type: [place] artery [place] vs. transplanted heart: [place] heart Associated angina: without angina Type 2 diabetes mellitus E11.22; N18.3 Diabetes mellitus fdc insulin use: without petroleum terminal plant operator use Diabetes mellitus complication status: with kidney complications Diabetes mellitus complication detail: with chronic kidney disease Chronic kidney disease stage: stage 3 (moderate) Hypertension I10 Hypertension type: essential hypertension Elevated troponin R77.8 Benign localized prostatic hyperplasia with lower urinary tract symptoms (LUTS) N40.1 Chews tobacco regularly Z72.0 Ear pain, left H92.02 Hypophosphatemia E83.39 GERD (gastroesophageal reflux disease) K21.9 DVT prophylaxis Z29.9 (1) Coronary artery disease Coronary Disease-Associated Artery/Lesion type: [place] artery [place] vs. 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
--- NOTE | 2020-01-24 14:06 | Pharmacy Report ---
PHA: Parenteral Nutrition Con - Date of Service January 24, 2020 - Scope Pharmacy was consulted on 01/21/20 to manage parenteral nutrition orders for this patient. - Subjective The patient is currently on day 4 of peripheral parenteral nutrition for ongoing/prolonged poor PO intake secondary to dysphagia/delirium. - Objective Height: 5 ft 11 in Weight: 80.1 kg Intake & Output (24hrs):: Intake & Output 01/22/20 01/23/20 01/24/20 01/25/20 06:59 06:59 06:59 06:59 Intake Total 1999 / 1999 9232.333 / 9232.333 1276.667 / 1276.667 Output Total 1150 / 1150 1275 / 1275 1375 / 1375 Balance 850 / 850 7957.333 / 7957.333 -98.333 / -98.333 Weight 79.6 kg 80.1 kg Laboratory Data (Last 24 Hr):: 01/24/20 07:47 Sodium 135 L Potassium 4.2 Chloride 105 Carbon Dioxide 24 BUN 39 H Creatinine 1.28 Glucose 253 H Calcium 8.7 Phosphorus 3.3 Magnesium 2.3 Nutrition Assessment:: Please refer to the Notes section of the EMR for the most recent early childhood associate teacher note. - Assessment * BUN has been elevated for duration of admission and continues to trend up (39 mg/dL today) * Will trial a decreased amino acid component in today's bag (~20% reduction) * Dextrose and lipids will remain the same * Sodium and chloride have been trending down since beginning PPN * Will increase both in today's formulation * Other electrolytes have been largely stable and will maintain similar amounts in today's formulation * BSGs have been persistently elevated since initiating PPN * Will continue 15 units of regular insulin in the formulation (0.1 unit/g of dextrose) * Will also increase Lantus and tighten Novolog CF today * Triglycerides of 152 on 01/11, which is borderline elevated * Continue lipids for now - consider rechecking triglyceride level in next couple of days if patient is to remain on PPN * Plan seems to be potential discharge in the next day or two with Hospice - Plan For day 4 of PN administration, the following will be ordered: Macronutrients Amino acids 80 grams/day Dextrose 150 grams/day Lipids 50 grams/day Micronutrients Combined electrolytes 40 mL - contains 35 mEq Na, 20 meq K, 4.5 mEq Ca, 5 mEq Mg, 35 mEq Cl, 29.5 mEq acetate per 20 mL Sodium phosphate 15 MMol Potassium phosphate 21 mMol Magnesium sulfate 4.06 mEq Multivitamins 10 mL Trace Elements 1 mL Additional additives: thiamine 100 mg and folic acid 1 mg Total volume 2400 mL (30 mL/kg) to be infused over 24 hrs will provide 1330 kcal/day Final osmolarity 774 mOsm/L (maximum for PPN is 900 mOsm/L) Labs, as indicated, will be ordered per protocol Pharmacy will continue to follow and adjust parenteral nutrition orders on a daily basis. Thank you for allowing us to participate in the care of this patient.
[2020-01-24] MEDS ORDERED: LIDOCAINE VISCOUS 2% 15 ML UDC EXT ONE (15:42)
[2020-01-24] MEDS: LORazepam 0.5 MG/1 ML VIAL IV PRN (16:58)
[2020-01-24] MEDS: Custom Peripheral Pn 2,400 ML in TPN BAG 0 ML IV SCH (17:07)
[2020-01-24] MEDS: FLUCONAZOLE 100 MG/50 ML BAG IV SCH (18:43)
--- NOTE | 2020-01-24 19:38 | XRay Report ---
CHEST AND ABDOMEN FOR NASOGASTRIC TUBE PLACEMENT (2 views) CLINICAL HISTORY: coresafe placement COMPARISON STUDY: 07/29/2017 FINDINGS: Views the chest and upper abdomen are provided for interpretation. There are bilateral pulm onary airspace opacities consistent with a multifocal pneumonia. The recently placed enteric tube is coiled within the pharynx. IMPRESSION: 1. The recently placed enteric tube is coiled within the pharynx. Repositioning will be necessary. ACT 112: Negative or not required by law. Electronically signed by: Dmitry Carranza M.D. 01/24/2020 7:36 PM
[2020-01-24] MEDS ORDERED: INSULIN ASPART 100 UNITS/ML 3 ML PEN SC SCH (22:00)
[2020-01-24] MEDS ORDERED: ACETAMINOPHEN 1,000 MG/100 ML VIAL IV PRN (22:19)
[2020-01-25] MEDS: INSULIN ASPART 100 UNITS/ML 3 ML PEN SC SCH ×3 (00:25→18:09)
[2020-01-25] MEDS: Custom Peripheral Pn 2,400 ML in TPN BAG 0 ML IV SCH (02:21)
[2020-01-25] MEDS ORDERED: INSULIN ASPART 100 UNITS/ML 3 ML PEN SC SCH ×2 (03:00→12:00)
[2020-01-25] MEDS: haloperidoL 0.5 MG TAB PO SCH ×3 (03:30→20:19)
[2020-01-25 06:51] LABS: Hematocrit (blood only) 37.9 % (42-52); Mean Corpuscular Hemoglobin 32.3 pg (25-34); Mean Corpuscular Hgb Conc 34.3 g/dL (32-36); Mean Corpuscular Volume 94.3 fL (80-100); Mean Platelet Volume 10.9 fL (7.4-10.4); Platelet Count 175 K/uL (130-400); RDW Coefficient of Variation 14.4 % (11.5-14.5); Red Blood Count 4.02 M/uL (4.7-6.1); White Blood Count 13.68 K/uL (4.8-10.8)
[2020-01-25 07:16] LABS: BUN Creatinine Ratio 32.7 (10-20); Calcium 8.9 mg/dl (8.5-10.1); Creatinine Clr Calc Pharmacy 38.5 ml/min; Est GFR (African American) 50.2; Est GFR (Non-African American) 43.4; Magnesium 2.4 mg/dl (1.8-2.4); Potassium 4.3 mmol/L (3.5-5.1)
[2020-01-25 07:17] LABS: Phosphorus 3.7 mg/dl (2.5-4.9)
--- NOTE | 2020-01-25 07:43 | XRay Report ---
KUB CLINICAL HISTORY: Enteric tube placement. FINDINGS: An AP, portable, upright chest radiograph is compared to study performed earlier the same d ay 01/24/2020. Enteric tube has been placed. The tip projects below the diaphragm over the mid stomac h. There is no evidence of bowel obstruction. Multifocal airspace consolidation is seen at the lung b ases. IMPRESSION: The tip of the enteric tube projects below the diaphragm over the mid stomach. Electronically signed by: Nawaf Chanel M.D. 01/25/2020 7:41 AM
[2020-01-25] MEDS: NICOTINE 14 MG/24 HR PATCH TD SCH (07:46)
[2020-01-25] MEDS: ENOXAPARIN INJ 30 MG/0.3 ML SYR SQ SCH ×2 (07:47→20:40)
[2020-01-25] MEDS: FAMOTIDINE 20 MG in SYRINGE 3 ML IV SCH ×2 (07:55→20:40)
[2020-01-25] MEDS: INSULIN GLARGINE SOLOSTAR 100 UNITS/ML 3 ML PEN SC SCH (09:41)
[2020-01-25] MEDS: NYSTATIN SUSP 500,000 U/5 ML UDC PO SCH ×4 (09:42→20:40)
--- NOTE | 2020-01-25 10:45 | Pharmacy Report ---
Glycemic Control Progress Note - Date of Service January 25, 2020 - Scope Glycemic Pharmacist consulted for glycemic control to write orders per [facility] inpatient glycemic control protocol. - Objective Accuchecks BSG(last 24 hours):: 01/24/20 01/24/20 01/24/20 11:28 12:13 17:43 Glucose POC Glucose 228 H 218 H 201 H 01/24/20 01/25/20 01/25/20 23:51 02:52 05:56 Glucose POC Glucose 265 H 248 H 229 H 01/25/20 06:13 Glucose 194 H POC Glucose - Recent Pertinent Medications The patient is currently receiving: * Basal insulin: Lantus 25 units in the morning and 10-15 units in the evening * Correctional Insulin: Novolog Correction per scale ACHS Goal Range: Low 110 mg/dL - High 140 mg/dL Correction Factor: 12 mg/dL/unit * Prandial insulin: Per carb ratio of 1 unit per -- grams CHO consumed * 15 units in PPN - Outpatient Anti-Diabetic Meds Amaryl 4 mg BID Januvia 25 mg HS metformin 1 gm BID - Assessment & Plan ASSESSMENT: * See progress note from 01/13/20 for more background info, in short: * Pt receiving SQ basal bolus insulin regimen for hyperglycemia secondary to baseline DM (outpatient regimen on hold),stress/infection (currently with COVID and oral thrush on Fluconazole), and PPN * Patient is currently receiving an average of 71 units of insulin per day + 15 units in PPN * 40 units of basal insulin * 31 units of prandial/correctional insulin * BSGs ranging 201 - 265 mg/dl over the past 24hrs * Changes needed to insulin regimen: * AM Fasting BSG = 194 mg/dl. This is slightly above goal range for patient based on inpatient targets and co-morbidities. The patient is currently receiving 40 units of basal insulin. When not on PPN, the patient required only around 10-20 units. Will prepare for transition off PPN by d/irene'g evening dose of Lantus. Adjustment in insulin elsewhere to compensate. * Post-prandial BSGs are elevated. CF is already extremely tighten. Double insulin in PPN to 30 units (about a carbohydrate ratio of 5). Change accuchecks to q4 hours as Novolog may be "wearing off" by 6 hours. * Total daily dose = ~70-80 units. Increased insulin as appropriate. PLAN FOR INPATIENT GLYCEMIC CONTROL: * Decreasing Lantus to 25 units SQ qAM * Continuing correction factor of 12 mg/dl/unit * TIGHTENING carb ratio to 1 unit per 5 grams CHO consumed * Continuing goal range of Low 110 mg/dL - High 140 mg/dL RECOMMENDATIONS FOR DISCHARGE: * Uncertain right now as patient's discharge plan not clear. * Please note that the plan above was derived based on current level of insulin resistance and hospital stress. These recommendations are appropriate for inpatient admission only. Plan of care upon discharge will need to be reassessed to avoid potential outpatient hypo/hyperglycemia. Thank you.
--- NOTE | 2020-01-25 15:31 | Hospitalist Progress Note ---
Date of Service January 25, 2020 Assessment & Plan (1) Metabolic encephalopathy: Due to COVID 19, delirium - Continue treatment with oxygen, redirection, supportive care - Possible that steroids were causing some confusion, but stopped dexamethasone 01/19, no improvement in mental status. Many cases of COVID delirium are well documented. - No change today. Discussed with family; plan for NG tube and feeds for at least 1 week to see how he does. (2) Dysphagia: Won't eat, did not participate with speech therapy. High risk for aspiration. - Continue Diflucan 100mg IV & Nystatin QID mouth swab. (3) Pneumonia due to COVID-19 virus: Chest x-ray on admission had progressed significantly since his previous hospital stay a few days prior. - Fluctuates between room air and 1L, no distress at all. - Was not a good candidate for remdesivir -- CrCl is nearly <30, and given he is 10+ days out from illness when he presented. (4) CKD (chronic kidney disease), stage III: Baseline CrCL 30s/40s. - Cr is 1.44 today. Will give IV fluids. (5) Coronary artery disease: no evidence of ACS, has a history of stents placed in 2019 Denies any chest pain cont COreg Continue statin -continue asa (6) Type 2 diabetes mellitus: pharmacy glycemic consult placed holding oral agents With hyperglycemia here and then severe hypoglycemia at times Very poor appetite at this point continue insulin as per pHarmacy (7) Hypertension: Blood pressures is continue Coreg when he will take it (8) DVT prophylaxis: Lovenox 30mg BID -- higher dose due to increased risk of VTE in setting of COVID-19 Admission and Anticipated Discharge Date Admission Date: January 12, 2020 Subjective Comfortable today. No pain. Reports no fevers/chills, chest pain, shortness of breath, abdominal pain, nausea, or vomiting. Physical Exam 2 Constitutional: WD/WN, vitals as above Eyes: EOM intact bilaterally; no conjunctival abnormality ENMT: external ear and nose normal, oropharynx normal Neck: trachea midline, no thyromegaly normal visual inspection Respiratory: normal respiratory effort, lungs clear to auscultation no respiratory distress Cardiovascular: RRR, no murmur, no edema Gastrointestinal (Abdomen): Inspection/Auscultation: abdomen normal to inspection; abdomen not distended Musculoskeletal: no cyanosis or clubbing, extremities motor strength 5/5 Skin: no rashes, warm and dry Neurologic: moves all extremities and awake Psychiatric: Orientation: alert, oriented to person and cooperative Results & Data Results & Data ([facility]) Vital Signs (Past 12 Hours) Vital Signs Temp Pulse Resp BP 01/25/20 07:11 36.7 C 75 21 113/69 PG Care Time/CCT Total # of Minutes Spent Total Time Spent with Patient: Total time spent is greater than 50% in coordination of care (as documented) at patient's floor/unit and/or counseling patient: Coding Level of Care Code 90365 Subseq Hosp Care Lvl 2 Diagnoses Metabolic encephalopathy G93.41 Dysphagia R13.10 Pneumonia due to COVID-19 virus U07.1; J12.89 CKD (chronic kidney disease), stage III N18.3 Coronary artery disease I25.10 Coronary Disease-Associated Artery/Lesion type: [place] artery [place] vs. transplanted heart: [place] heart Associated angina: without angina Type 2 diabetes mellitus E11.22; N18.3 Diabetes mellitus snf insulin use: without terminal clerk use Diabetes mellitus complication status: with kidney complications Diabetes mellitus complication detail: with chronic kidney disease Chronic kidney disease stage: stage 3 (moderate) Hypertension I10 Hypertension type: essential hypertension DVT prophylaxis Z29.9 (1) Coronary artery disease Coronary Disease-Associated Artery/Lesion type: [place] artery [place] vs. transplanted heart: [place] heart Associated angina: without angina Qualified Code(s): I25.10 - Atherosclerotic heart disease of [place] coronary artery without angina pectoris (2) Type 2 diabetes mellitus Diabetes mellitus snf insulin use: without snf use Diabetes mellitus complication status: with kidney complications Diabetes mellitus complication detail: with chronic kidney disease Chronic kidney disease stage: stage 3 (moderate) Qualified Code(s): E11.22 - Type 2 diabetes mellitus with diabetic chronic kidney disease; N18.3 - Chronic kidney disease, stage 3 (moderate) (3) Hypertension Hypertension type: essential hypertension Qualified Code(s): I10 - Essential (primary) hypertension
[2020-01-25] MEDS ORDERED: NORMOSOL-R 1,000 ML IV ONE (15:32)
[2020-01-25] MEDS: FLUCONAZOLE 100 MG/50 ML BAG IV SCH (15:35)
[2020-01-25] MEDS: PEPTAMEN 1.5 CAL 1,000 ML BAG NG PRN (17:58)
[2020-01-25] MEDS: TUBE FEEDING WATER FLUSH NG SCH ×3 (17:59→23:46)
[2020-01-25] MEDS: SENNOSIDES 8.8 MG/5 ML UDC GT SCH (20:42)
[2020-01-25] MEDS: DOCUSATE SODIUM SYRUP 100 MG/10 ML UDC NG SCH (20:44)
[2020-01-26] MEDS: INSULIN ASPART 100 UNITS/ML 3 ML PEN SC SCH ×4 (00:10→18:03)
[2020-01-26] MEDS: haloperidoL 0.5 MG TAB PO SCH ×3 (02:08→18:55)
[2020-01-26] MEDS: TUBE FEEDING WATER FLUSH NG SCH ×7 (02:08→19:54)
[2020-01-26] MEDS: PEPTAMEN 1.5 CAL 1,000 ML BAG NG PRN (04:57)
[2020-01-26 06:03] LABS: Hemoglobin 12.8 g/dL (14.0-18.0); Mean Corpuscular Hemoglobin 32.1 pg (25-34); Mean Corpuscular Hgb Conc 33.7 g/dL (32-36); Mean Corpuscular Volume 95.2 fL (80-100); Mean Platelet Volume 10.8 fL (7.4-10.4); Platelet Count 164 K/uL (130-400); RDW Coefficient of Variation 14.3 % (11.5-14.5); RDW Standard Deviation 49.6 fL (36.4-46.3); Red Blood Count 3.99 M/uL (4.7-6.1); White Blood Count 13.31 K/uL (4.8-10.8)
[2020-01-26 06:22] LABS: Albumin Level 1.9 gm/dl (3.4-5.0); BUN Creatinine Ratio 30.6 (10-20); Calcium 8.3 mg/dl (8.5-10.1); Creatinine Clr Calc Pharmacy 38.8 ml/min; Est GFR (African American) 50.7; Est GFR (Non-African American) 43.7; Magnesium 2.3 mg/dl (1.8-2.4); Potassium 4.6 mmol/L (3.5-5.1)
[2020-01-26 06:25] LABS: Albumin Globulin Ratio 0.4 (0.9-2); Bilirubin,Total 0.8 mg/dl (0.2-1); Globulin 4.4 gm/dl (2.5-4.0); Phosphorus 3.7 mg/dl (2.5-4.9); Total Protein 6.3 gm/dl (6.4-8.2)
[2020-01-26] MEDS: NICOTINE 14 MG/24 HR PATCH TD SCH (08:49)
[2020-01-26] MEDS: ENOXAPARIN INJ 30 MG/0.3 ML SYR SQ SCH ×2 (08:49→18:55)
[2020-01-26] MEDS: SENNOSIDES 8.8 MG/5 ML UDC GT SCH ×2 (08:50→19:54)
[2020-01-26] MEDS: NYSTATIN SUSP 500,000 U/5 ML UDC PO SCH ×4 (08:50→21:33)
[2020-01-26] MEDS: DOCUSATE SODIUM SYRUP 100 MG/10 ML UDC NG SCH ×2 (08:50→19:54)
[2020-01-26] MEDS: FAMOTIDINE 20 MG in SYRINGE 3 ML IV SCH ×2 (08:52→19:54)
[2020-01-26] MEDS ORDERED: INSULIN GLARGINE SOLOSTAR 100 UNITS/ML 3 ML PEN SC ONE (13:15)
--- NOTE | 2020-01-26 13:27 | Pharmacy Report ---
Pharmacy Glycemic Short Note 2 - Date of Service January 26, 2020 - Glycemic Short BSG Results (Last 24 hours): 01/25/20 01/26/20 01/26/20 17:48 00:04 05:43 Glucose POC Glucose 113 H 114 H 145 H 01/26/20 05:46 Glucose 136 H POC Glucose OUTPATIENT ANTIDIABETIC REGIMEN: * amaryl, metformin, januvia * HbA1c: 9.7% (11/29/19) ASSESSMENT: 01/25: * PPN discontinued yesterday at 1600 - insulin needs reduced since that time * Received 45 units of insulin yesterday (25 units of basal and 20 units of prandial/correctional Novolog) * Tube feeds (Peptamen 1.5 - 184 g of carbs/L) initiated last evening - currently infusing at 25 mL/hr * Note added to Novolog order instructing nurse to cover carbohydrate content of tube feeds * Peptamen 1.5 infusing at: * -25 mL/hr provides ~27 g of carbohydrate over 6 hour period * -35 mL/hr provides ~38 g of carbohydrate over 6 hour period * -45 mL/hr provides ~49 g of carbohydrate over 6 hour period PLAN FOR INPATIENT GLYCEMIC CONTROL: * Hold outpatient oral diabetes medications * Basal insulin - * Lantus 10 units x 1 at lunchtime today * Lantus scale SC BID starting this evening (0-15 units) * Bolus insulin - loosen * NovoLog per scale ACHS or Q6hrs while NPO * Goal Range: Low 110 mg/dL - High 140 mg/dL * Correction Factor: 20 mg/dL/unit * Nutritional / Prandial insulin per carb ratio of 1 unit per 7 grams CHO consumed PLAN FOR DISCHARGE: * tbd - will depend on goals of care at discharge
[2020-01-26] MEDS: FLUCONAZOLE 100 MG/50 ML BAG IV SCH (16:54)
[2020-01-26] MEDS ORDERED: NORMOSOL-R 1,000 ML IV ONE (17:27)
--- NOTE | 2020-01-26 17:27 | Hospitalist Progress Note ---
Date of Service January 26, 2020 Assessment & Plan (1) Metabolic encephalopathy: Due to COVID 19, delirium - Continue treatment with oxygen, redirection, supportive care - Possible that steroids were causing some confusion, but stopped dexamethasone 01/19, no improvement in mental status. Many cases of COVID delirium are well documented. - No change today. Discussed with family; plan for NG tube and feeds for at least 1 week to see how he does. Pulled it out today. Will replace it. (2) Dysphagia: Won't eat, did not participate with speech therapy. High risk for aspiration. - Continue Diflucan 100mg IV & Nystatin QID mouth swab. (3) Pneumonia due to COVID-19 virus: Chest x-ray on admission had progressed significantly since his previous hospital stay a few days prior. - Fluctuates between room air and 1L, no distress at all. - Was not a good candidate for remdesivir -- CrCl is nearly <30, and given he is 10+ days out from illness when he presented. (4) CKD (chronic kidney disease), stage III: Baseline CrCL 30s/40s. - Cr is 1.43 today. Tube feeds and free-water flushes. (5) Coronary artery disease: No evidence of ACS, has a history of stents placed in 2019. - Cont Coreg, ASA, statin (6) Type 2 diabetes mellitus: Pharmacy glycemic consult placed. - Holding oral agents - Continue insulin as per pharmacy -> Sugars in last 24 hours tolerable. (7) Hypertension: BP is 125/75. - Continue Coreg when he will take it (8) DVT prophylaxis: Lovenox 30mg BID -- higher dose due to increased risk of VTE in setting of COVID-19 Admission and Anticipated Discharge Date Admission Date: January 12, 2020 Subjective Won't really respond to me. Says his name, but otherwise won't answer questions. Review of Systems Review of Systems: Unobtainable due to cognitive status Physical Exam Constitutional: WD/WN, vitals as above Eyes: EOM intact bilaterally; no conjunctival abnormality ENMT: external ear and nose normal, oropharynx normal Neck: trachea midline, no thyromegaly normal visual inspection Respiratory: normal respiratory effort, lungs clear to auscultation no respiratory distress Cardiovascular: RRR, no murmur, no edema Gastrointestinal (Abdomen): Inspection/Auscultation: abdomen normal to inspection; abdomen not distended Musculoskeletal: no cyanosis or clubbing, extremities motor strength 5/5 Skin: no rashes, warm and dry Neurologic: moves all extremities and awake Psychiatric: Orientation: alert, oriented to person and cooperative Results & Data Results & Data ([facility]) Vital Signs (Past 12 Hours) Vital Signs Temp Pulse Pulse Resp BP Pulse Ox 01/26/20 15:20 36.6 C 84 18 123/74 92 01/26/20 06:00 36.7 C 71 17 104/65 95 PG Care Time/CCT Total # of Minutes Spent Total Time Spent with Patient: Total time spent is greater than 50% in coordination of care (as documented) at patient's floor/unit and/or counseling patient: Coding Level of Care Code 41211 Subseq Hosp Care Lvl 2 Diagnoses Metabolic encephalopathy G93.41 Dysphagia R13.10 Pneumonia due to COVID-19 virus U07.1; J12.89 CKD (chronic kidney disease), stage III N18.3 Coronary artery disease I25.10 Coronary Disease-Associated Artery/Lesion type: [place] artery [place] vs. transplanted heart: [place] heart Associated angina: without angina Type 2 diabetes mellitus E11.22; N18.3 Diabetes mellitus terminal block assembler insulin use: without usp use Diabetes mellitus complication status: with kidney complications Diabetes mellitus complication detail: with chronic kidney disease Chronic kidney disease stage: stage 3 (moderate) Hypertension I10 Hypertension type: essential hypertension DVT prophylaxis Z29.9 (1) Coronary artery disease Coronary Disease-Associated Artery/Lesion type: [place] artery [place] vs. transplanted heart: [place] heart Associated angina: without angina Qualified Code(s): I25.10 - Atherosclerotic heart disease of [place] coronary artery without angina pectoris (2) Type 2 diabetes mellitus Diabetes mellitus terminal block assembler insulin use: without terminal block assembler use Diabetes mellitus complication status: with kidney complications Diabetes mellitus complication detail: with chronic kidney disease Chronic kidney disease stage: stage 3 (moderate) Qualified Code(s): E11.22 - Type 2 diabetes mellitus with diabetic chronic kidney disease; N18.3 - Chronic kidney disease, stage 3 (moderate) (3) Hypertension Hypertension type: essential hypertension Qualified Code(s): I10 - Essential (primary) hypertension
[2020-01-26] MEDS: LORazepam 0.25 MG/0.5 ML VIAL IV PRN (18:55)
[2020-01-26] MEDS: INSULIN GLARGINE SOLOSTAR 100 UNITS/ML 3 ML PEN SC SCH (22:18)
[2020-01-27] MEDS: TUBE FEEDING WATER FLUSH NG SCH ×4 (00:33→21:36)
[2020-01-27] MEDS: INSULIN ASPART 100 UNITS/ML 3 ML PEN SC SCH ×4 (00:45→19:16)
[2020-01-27] MEDS: haloperidoL 0.5 MG TAB PO SCH ×4 (03:09→20:39)
[2020-01-27 05:31] LABS: Hematocrit (blood only) 36.8 % (42-52); Hemoglobin 12.4 g/dL (14.0-18.0); Mean Corpuscular Hemoglobin 32.4 pg (25-34); Mean Corpuscular Hgb Conc 33.7 g/dL (32-36); Mean Corpuscular Volume 96.1 fL (80-100); Mean Platelet Volume 10.8 fL (7.4-10.4); Platelet Count 153 K/uL (130-400); RDW Coefficient of Variation 14.4 % (11.5-14.5); RDW Standard Deviation 50.5 fL (36.4-46.3); Red Blood Count 3.83 M/uL (4.7-6.1); White Blood Count 9.01 K/uL (4.8-10.8)
[2020-01-27 06:03] LABS: Albumin Level 1.9 gm/dl (3.4-5.0); BUN Creatinine Ratio 27.9 (10-20); Calcium 8.2 mg/dl (8.5-10.1); Creatinine Clr Calc Pharmacy 43.6 ml/min; Est GFR (African American) 58.5; Est GFR (Non-African American) 50.5; Magnesium 2.4 mg/dl (1.8-2.4); Potassium 4.4 mmol/L (3.5-5.1)
[2020-01-27 06:06] LABS: Albumin Globulin Ratio 0.4 (0.9-2); Bilirubin,Total 0.8 mg/dl (0.2-1); Globulin 4.4 gm/dl (2.5-4.0); Phosphorus 3.3 mg/dl (2.5-4.9); Total Protein 6.3 gm/dl (6.4-8.2)
[2020-01-27] MEDS: ENOXAPARIN INJ 30 MG/0.3 ML SYR SQ SCH ×2 (07:54→20:53)
[2020-01-27] MEDS: NICOTINE 14 MG/24 HR PATCH TD SCH (07:55)
[2020-01-27] MEDS: NYSTATIN SUSP 500,000 U/5 ML UDC PO SCH ×4 (07:58→22:03)
[2020-01-27] MEDS: FAMOTIDINE 20 MG in SYRINGE 3 ML IV SCH ×2 (07:59→19:45)
[2020-01-27] MEDS: SENNOSIDES 8.8 MG/5 ML UDC GT SCH ×2 (08:34→22:03)
[2020-01-27] MEDS: DOCUSATE SODIUM SYRUP 100 MG/10 ML UDC NG SCH ×2 (08:34→22:02)
[2020-01-27] MEDS: INSULIN GLARGINE SOLOSTAR 100 UNITS/ML 3 ML PEN SC SCH ×2 (08:35→22:00)
--- NOTE | 2020-01-27 08:40 | Pharmacy Report ---
Pharmacy Glycemic Short Note 2 - Date of Service January 27, 2020 - Glycemic Short BSG Results (Last 24 hours): 01/26/20 01/26/20 01/26/20 13:41 17:55 21:11 Glucose POC Glucose 199 H 133 H 101 H 01/27/20 01/27/20 01/27/20 00:42 05:07 05:42 Glucose 79 POC Glucose 89 85 OUTPATIENT ANTIDIABETIC REGIMEN: * amaryl, metformin, januvia * HbA1c: 9.7% (11/29/19) ASSESSMENT: 01/26: * Patient is currently receiving an average of 45-70 units of insulin per day while on continuous tube feedings. However, feedings held yesterday therefore insulin regimen held and adjusted downwards. * 10 units of basal insulin * 3 units of prandial/correctional insulin * BSGs ranging 101-199 over the past 24hrs * Anticipating insulin regimen will need decreased for the next 24hrs d/t stopped tube feedings, no PO intake: * AM Fasting BSG = 85 mg/dl therefore Basal insulin needs decreased. Will change the BSG ranges upwards for which patient will receive Lantus. No Lantus if BSG < 141 mg/dl. * No changes needed to CF/CR - no PO intake or tube feedings at this time. Parameters adequate if tube feedings are resumed. 01/25: * PPN discontinued yesterday at 1600 - insulin needs reduced since that time * Received 45 units of insulin yesterday (25 units of basal and 20 units of prandial/correctional Novolog) * Tube feeds (Peptamen 1.5 - 184 g of carbs/L) initiated last evening - currently infusing at 25 mL/hr * Note added to Novolog order instructing nurse to cover carbohydrate content of tube feeds * Peptamen 1.5 infusing at: * -25 mL/hr provides ~27 g of carbohydrate over 6 hour period * -35 mL/hr provides ~38 g of carbohydrate over 6 hour period * -45 mL/hr provides ~49 g of carbohydrate over 6 hour period PLAN FOR INPATIENT GLYCEMIC CONTROL: * Hold outpatient oral diabetes medications * Basal insulin - * Lantus scale SC BID starting this evening (0-15 units) * BSG 140 mg/dl or below --> 0 units * BSG 141-180 mg/dl --> 10 units * BSG above 180 mg/dl --> 15 units * Bolus insulin - no change * NovoLog per scale ACHS or Q6hrs while NPO * Goal Range: Low 110 mg/dL - High 140 mg/dL * Correction Factor: 20 mg/dL/unit * Nutritional / Prandial insulin per carb ratio of 1 unit per 7 grams CHO consumed PLAN FOR DISCHARGE: * tbd - will depend on goals of care at discharge
[2020-01-27] MEDS: FLUCONAZOLE 100 MG/50 ML BAG IV SCH (15:59)
--- NOTE | 2020-01-27 17:33 | Hospitalist Progress Note ---
Date of Service January 27, 2020 Assessment & Plan (1) Metabolic encephalopathy: Due to COVID 19, delirium - Continue treatment with oxygen, redirection, supportive care - Possible that steroids were causing some confusion, but stopped dexamethasone 01/19, no improvement in mental status. Many cases of COVID delirium are well documented. - Pulled NG yesterday. Left it out to see if he could do better with [employer], but he is still not swallowing. Will re-insert the NG tube as the family reports this is what he would have wanted if he was in his sound mind. (2) Dysphagia: Won't eat, did not participate with speech therapy. High risk for aspirat ion. - Continue Diflucan 100mg IV & Nystatin QID mouth swab. (3) Pneumonia due to COVID-19 virus: Chest x-ray on admission had progressed significantly since his previous hospital stay a few days prior. - Fluctuates between room air and 1L, no distress at all. - Was not a good candidate for remdesivir -- CrCl is nearly <30, and given he is 10+ days out from illness when he presented. (4) CKD (chronic kidney disease), stage III: Baseline CrCL 30s/40s. - Cr is 1.27 today. Tube feeds and free-water flushes. (5) Coronary artery disease: No evidence of ACS, has a history of stents placed in 2019. - Cont Coreg, ASA, statin (6) Type 2 diabetes mellitus: Pharmacy glycemic consult placed. - Holding oral agents - Continue insulin as per pharmacy -> Sugars in last 24 hours tolerable. (7) Hypertension: BP is 150/80. - Continue Coreg when he will take it (8) DVT prophylaxis: Lovenox 30mg BID -- higher dose due to increased risk of VTE in setting of COVID-19 Admission and Anticipated Discharge Date Admission Date: January 12, 2020 Subjective Some improvement today. Able to say a few things to me, but not able to really have a meaningful conversation. Physical Exam Constitutional: WD/WN, vitals as above Eyes: EOM intact bilaterally; no conjunctival abnormality ENMT: external ear and nose normal, oropharynx normal Neck: trachea midline, no thyromegaly normal visual inspection Respiratory: normal respiratory effort, lungs clear to auscultation no respiratory distress Cardiovascular: RRR, no murmur, no edema Gastrointestinal (Abdomen): Inspection/Auscultation: abdomen normal to inspection; abdomen not distended Musculoskeletal: no cyanosis or clubbing, extremities motor strength 5/5 Skin: no rashes, warm and dry Neurologic: moves all extremities and awake Psychiatric: Orientation: alert, oriented to person and cooperative; + not oriented to place and + not oriented to time Results & Data Results & Data ([facility]) Vital Signs (Past 12 Hours) Vital Signs Temp Pulse Pulse Resp BP Pulse Ox 01/27/20 15:16 37.8 C H 87 18 148/79 H 95 01/27/20 07:02 37.1 C 79 16 118/65 95 PG Care Time/CCT Total # of Minutes Spent Total Time Spent with Patient: Total time spent is greater than 50% in coordination of care (as documented) at patient's floor/unit and/or counseling patient: Coding Level of Care Code 61097 Subseq Hosp Care Lvl 2 Diagnoses Metabolic encephalopathy G93.41 Dysphagia R13.10 Pneumonia due to COVID-19 virus U07.1; J12.89 CKD (chronic kidney disease), stage III N18.3 Coronary artery disease I25.10 Coronary Disease-Associated Artery/Lesion type: [place] artery [place] vs. transplanted heart: [place] heart Associated angina: without angina Type 2 diabetes mellitus E11.22; N18.3 Diabetes mellitus chcf insulin use: without chcf use Diabetes mellitus complication status: with kidney complications Diabetes mellitus complication detail: with chronic kidney disease Chronic kidney disease stage: stage 3 (moderate) Hypertension I10 Hypertension type: essential hypertension DVT prophylaxis Z29.9 (1) Coronary artery disease Coronary Disease-Associated Artery/Lesion type: [place] artery [place] vs. transplanted heart: [place] heart Associated angina: without angina Qualified Code(s): I25.10 - Atherosclerotic heart disease of [place] coronary artery without angina pectoris (2) Type 2 diabetes mellitus Diabetes mellitus chcf insulin use: without chcf use Diabetes mellitus complication status: with kidney complications Diabetes mellitus complication detail: with chronic kidney disease Chronic kidney disease stage: stage 3 (moderate) Qualified Code(s): E11.22 - Type 2 diabetes mellitus with diabetic chronic kidney disease; N18.3 - Chronic kidney disease, stage 3 (moderate) (3) Hypertension Hypertension type: essential hypertension Qualified Code(s): I10 - Essential (primary) hypertension
[2020-01-27] MEDS: LORazepam 0.5 MG/1 ML VIAL IV PRN (17:46)
--- NOTE | 2020-01-27 18:56 | XRay Report ---
KUB CLINICAL HISTORY: Enteric tube placement. FINDINGS: An AP, portable, semierect view of the lower chest and upper abdomen is compared to study d ated 01/24/2020. Enteric tube has been placed. The tip of the enteric tube projects below the diaphra gm over the mid stomach. There is no evidence of bowel obstruction. Multifocal airspace consolidation is seen at the lung bases. IMPRESSION: The tip of the enteric tube projects below the diaphragm over the mid stomach. Electronically signed by: Nawaf Chanel M.D. 01/27/2020 6:55 PM
[2020-01-27] MEDS: PEPTAMEN 1.5 CAL 1,000 ML BAG NG PRN (21:36)
[2020-01-28] MEDS: TUBE FEEDING WATER FLUSH NG SCH ×9 (00:20→23:37)
[2020-01-28] MEDS: INSULIN ASPART 100 UNITS/ML 3 ML PEN SC SCH ×4 (00:25→18:20)
[2020-01-28] MEDS: haloperidoL 0.5 MG TAB PO SCH (04:01)
[2020-01-28 05:53] LABS: Hematocrit (blood only) 38.2 % (42-52); Hemoglobin 12.8 g/dL (14.0-18.0); Mean Corpuscular Hemoglobin 32.2 pg (25-34); Mean Corpuscular Hgb Conc 33.5 g/dL (32-36); Mean Platelet Volume 10.1 fL (7.4-10.4); Platelet Count 198 K/uL (130-400); RDW Coefficient of Variation 14.1 % (11.5-14.5); Red Blood Count 3.98 M/uL (4.7-6.1); White Blood Count 11.49 K/uL (4.8-10.8)
[2020-01-28 06:18] LABS: BUN Creatinine Ratio 22.5 (10-20); Calcium 8.7 mg/dl (8.5-10.1); Creatinine Clr Calc Pharmacy 63.5 ml/min; Est GFR (African American) 54.8; Est GFR (Non-African American) 47.3; Potassium 4.9 mmol/L (3.5-5.1)
[2020-01-28] MEDS ORDERED: INSULIN GLARGINE SOLOSTAR 100 UNITS/ML 3 ML PEN SC ONE (07:30)
--- NOTE | 2020-01-28 09:24 | Pharmacy Report ---
Pharmacy Glycemic Short Note 2 - Date of Service January 28, 2020 - Glycemic Short BSG Results (Last 24 hours): 01/27/20 01/27/20 01/27/20 13:31 18:07 21:49 Glucose POC Glucose 94 90 91 01/28/20 01/28/20 01/28/20 00:09 05:44 06:03 Glucose 201 H POC Glucose 144 H 223 H OUTPATIENT ANTIDIABETIC REGIMEN: * amaryl, metformin, januvia * HbA1c: 9.7% (11/29/19) ASSESSMENT: 01/27: * Pt with hyperglycemia secondary to resuming continuous tube feedings. * No basal insulin on board (held yesterday for below goal range BSGs of 85-94-90-91 & tube feedings on hold) * CHO were not covered when tube feedings initially started - were covered this AM. BSGs should improve with continued CHO coverage. * Will also add a small dose of basal insulin (0.2 units/kg) since NovoLog is only being given Q6hrs secondary to contact precautions/COVID-19. Typically NovoLog is given Q4hrs for continuous tube feedings. If adding basal does not stabilize BSGs will consider changing NovoLog to Regular insulin Q6hrs (longer duration of action). 01/26: * Patient is currently receiving an average of 45-70 units of insulin per day while on continuous tube feedings. However, feedings held yesterday therefore insulin regimen held and adjusted downwards. * 10 units of basal insulin * 3 units of prandial/correctional insulin * BSGs ranging 101-199 over the past 24hrs * Anticipating insulin regimen will need decreased for the next 24hrs d/t stopped tube feedings, no PO intake: * AM Fasting BSG = 85 mg/dl therefore Basal insulin needs decreased. Will change the BSG ranges upwards for which patient will receive Lantus. No Lantus if BSG < 141 mg/dl. * No changes needed to CF/CR - no PO intake or tube feedings at this time. Parameters adequate if tube feedings are resumed. 01/25: * PPN discontinued yesterday at 1600 - insulin needs reduced since that time * Received 45 units of insulin yesterday (25 units of basal and 20 units of prandial/correctional Novolog) * Tube feeds (Peptamen 1.5 - 184 g of carbs/L) initiated last evening - currently infusing at 25 mL/hr * Note added to Novolog order instructing nurse to cover carbohydrate content of tube feeds * Peptamen 1.5 infusing at: * -25 mL/hr provides ~27 g of carbohydrate over 6 hour period * -35 mL/hr provides ~38 g of carbohydrate over 6 hour period * -45 mL/hr provides ~49 g of carbohydrate over 6 hour period PLAN FOR INPATIENT GLYCEMIC CONTROL: * Hold outpatient oral diabetes medications * Basal insulin - * Lantus 15 units SQ x 1 dose this AM; then split BID to prevent Q24hr insulin on board in the event that TF are held or DC. * Lantus scale SC BID starting this evening (0-5-10 units) * BSG 110 mg/dl or below --> 0 units * BSG 111-180 mg/dl --> 5 units * BSG above 180 mg/dl --> 10 units * Bolus insulin - no change; covering CHO in tube feedings with scale below * NovoLog per scale ACHS or Q6hrs while NPO * Goal Range: Low 110 mg/dL - High 140 mg/dL * Correction Factor: 20 mg/dL/unit * Nutritional / Prandial insulin per carb ratio of 1 unit per 7 grams CHO consumed PLAN FOR DISCHARGE: * tbd - will depend on goals of care at discharge
[2020-01-28] MEDS: NICOTINE 14 MG/24 HR PATCH TD SCH (09:42)
[2020-01-28] MEDS: ENOXAPARIN INJ 30 MG/0.3 ML SYR SQ SCH ×2 (09:43→20:37)
[2020-01-28] MEDS: FAMOTIDINE 20 MG in SYRINGE 3 ML IV SCH (09:46)
[2020-01-28] MEDS: DOCUSATE SODIUM SYRUP 100 MG/10 ML UDC NG SCH (09:48)
[2020-01-28] MEDS: SENNOSIDES 8.8 MG/5 ML UDC GT SCH (09:49)
[2020-01-28] MEDS: NYSTATIN SUSP 500,000 U/5 ML UDC PO SCH ×5 (11:54→20:40)
--- NOTE | 2020-01-28 15:48 | Hospitalist Progress Note ---
Date of Service January 28, 2020 Assessment & Plan (1) Metabolic encephalopathy: Due to COVID 19, delirium - Continue treatment with oxygen, redirection, supportive care - Possible that steroids were causing some confusion, but stopped dexamethasone 01/19, no improvement in mental status. Many cases of COVID delirium are well documented. - Discussed with Sadie (daughter) on 01/26; she feels he would want nutrition if he were of sound mind. NG tube replaced (he pulled one out) on 01/26 and restarted tube feeds. Family would like to give it 1 week or so and see how he responds. (2) Dysphagia: Won't eat, did not participate with speech therapy. High risk for aspiration. - Continue Diflucan 100mg IV & Nystatin QID mouth swab. - FREEZER UNLOADER evaluated on 01/26. He held food and water in his mouth, but could not transfer posteriorly or swallow. FREEZER UNLOADER will re-evaluate on Friday for improvement. Maintain NPO. (3) Pneumonia due to COVID-19 virus: Chest x-ray on admission had progressed significantly since his previous hospital stay a few days prior. - Fluctuates between room air and 1L, no distress at all. - Was not a good candidate for remdesivir -- CrCl is nearly <30, and given he is 10+ days out from illness when he presented. (4) CKD (chronic kidney disease), stage III: Baseline CrCL 30s/40s. - Cr is 1.34 today. Tube feeds and free-water flushes. (5) Coronary artery disease: No evidence of ACS, has a history of stents placed in 2019. - Cont Coreg, ASA, statin (6) Type 2 diabetes mellitus: Pharmacy glycemic consult placed. - Holding oral agents - Continue insulin as per pharmacy -> Sugars in last 24 hours tolerable. (7) Hypertension: BP is 115/75. - Continue Coreg when able (8) DVT prophylaxis: Lovenox 30mg BID -- higher dose due to increased risk of VTE in setting of COVID-19 Admission and Anticipated Discharge Date Admission Date: January 12, 2020 Subjective Reports no pain today. Says not much is bothering him, but has trouble with more complex questions and even yes/no symptoms questions. Review of Systems Review of Systems: Unobtainable due to cognitive status Physical Exam Constitutional: WD/WN, vitals as above Eyes: EOM intact bilaterally; no conjunctival abnormality ENMT: external ear and nose normal, oropharynx normal Neck: trachea midline, no thyromegaly normal visual inspection Respiratory: normal respiratory effort, lungs clear to auscultation no respiratory distress Cardiovascular: RRR, no murmur, no edema Gastrointestinal (Abdomen): Inspection/Auscultation: abdomen normal to inspection; abdomen not distended Musculoskeletal: no cyanosis or clubbing, extremities motor strength 5/5 Skin: no rashes, warm and dry Neurologic: moves all extremities and awake Psychiatric: Orientation: alert, oriented to person and cooperative; + not oriented to place and + not oriented to time Results & Data Results & Data ([facility]) Vital Signs (Past 12 Hours) Vital Signs Temp Pulse Pulse Resp BP Pulse Ox 01/28/20 15:35 37.2 C 89 22 114/73 94 01/28/20 07:24 36.6 C 86 21 108/56 L 92 PG Care Time/CCT Total # of Minutes Spent Total Time Spent with Patient: Total time spent is greater than 50% in coordination of care (as documented) at patient's floor/unit and/or counseling patient: Coding Level of Care Code 46539 Subseq Hosp Care Lvl 2 Diagnoses Metabolic encephalopathy G93.41 Dysphagia R13.10 Pneumonia due to COVID-19 virus U07.1; J12.89 CKD (chronic kidney disease), stage III N18.3 Coronary artery disease I25.10 Coronary Disease-Associated Artery/Lesion type: [place] artery [place] vs. transplanted heart: [place] heart Associated angina: without angina Type 2 diabetes mellitus E11.22; N18.3 Diabetes mellitus retirement insulin use: without retirement use Diabetes mellitus complication status: with kidney complications Diabetes mellitus complication detail: with chronic kidney disease Chronic kidney disease stage: stage 3 (moderate) Hypertension I10 Hypertension type: essential hypertension DVT prophylaxis Z29.9 (1) Coronary artery disease Coronary Disease-Associated Artery/Lesion type: [place] artery [place] vs. transplanted heart: [place] heart Associated angina: without angina Qualified Code(s): I25.10 - Atherosclerotic heart disease of [place] coronary artery without angina pectoris (2) Type 2 diabetes mellitus Diabetes mellitus retirement insulin use: without terminal block assembler use Diabetes mellitus complication status: with kidney complications Diabetes mellitus complication detail: with chronic kidney disease Chronic kidney disease stage: stage 3 (moderate) Qualified Code(s): E11.22 - Type 2 diabetes mellitus with diabetic chronic kidney disease; N18.3 - Chronic kidney disease, stage 3 (moderate) (3) Hypertension Hypertension type: essential hypertension Qualified Code(s): I10 - Essential (primary) hypertension
[2020-01-28] MEDS: FLUCONAZOLE 100 MG/50 ML BAG IV SCH (16:29)
[2020-01-28] MEDS: INSULIN GLARGINE SOLOSTAR 100 UNITS/ML 3 ML PEN SC SCH (21:52)
[2020-01-29] MEDS: INSULIN ASPART 100 UNITS/ML 3 ML PEN SC SCH ×4 (00:24→18:09)
[2020-01-29] MEDS: TUBE FEEDING WATER FLUSH NG SCH ×8 (03:10→23:23)
[2020-01-29 06:25] LABS: Hematocrit (blood only) 35.8 % (42-52); Hemoglobin 11.9 g/dL (14.0-18.0); Mean Corpuscular Hemoglobin 32.1 pg (25-34); Mean Corpuscular Hgb Conc 33.2 g/dL (32-36); Mean Corpuscular Volume 96.5 fL (80-100); Mean Platelet Volume 10.9 fL (7.4-10.4); Platelet Count 194 K/uL (130-400); RDW Coefficient of Variation 14.1 % (11.5-14.5); Red Blood Count 3.71 M/uL (4.7-6.1); White Blood Count 7.92 K/uL (4.8-10.8)
[2020-01-29 06:58] LABS: Albumin Level 1.9 gm/dl (3.4-5.0); BUN Creatinine Ratio 22.8 (10-20); Calcium 8.6 mg/dl (8.5-10.1); Creatinine Clr Calc Pharmacy 46.6 ml/min; Est GFR (African American) 63.3; Est GFR (Non-African American) 54.6; Magnesium 2.2 mg/dl (1.8-2.4); Potassium 4.4 mmol/L (3.5-5.1)
[2020-01-29 07:02] LABS: Albumin Globulin Ratio 0.4 (0.9-2); Bilirubin,Total 0.9 mg/dl (0.2-1); Globulin 5.1 gm/dl (2.5-4.0); Phosphorus 2.5 mg/dl (2.5-4.9)
--- NOTE | 2020-01-29 09:40 | Hospitalist Progress Note ---
Date of Service January 29, 2020 Assessment & Plan (1) Metabolic encephalopathy: Due to COVID 19, delirium - Continue treatment with oxygen, redirection, supportive care - Possible that steroids were causing some confusion, but stopped dexamethasone 01/19, no improvement in mental status. Many cases of COVID delirium are well documented. - Dr. Pelaez discussed with Sadie (daughter) on 01/26; she feels he would want nutrition if he were of sound mind. NG tube replaced (he pulled one out) on 01/26 and restarted tube feeds. patient pulled out NG tube again on 01/28 in the morning, hold on placing another NG tube as it is very difficult, requires mild sedation discussed other option of PEG tube with Katelyn on 01/28, she will discuss with her family. They have come to the conclusion that he would want nutrition, would want to try everything to help him recover, she feels that otherwise he will come home and they will just watch him slowly . (2) Dysphagia: Won't eat, did not participate with speech therapy. High risk for aspirat ion. - Continue Diflucan 100mg IV & Nystatin QID mouth swab - [employer] evaluated on 01/26. He held food and water in his mouth, but could not transfer posteriorly or swallow. [employer] will re-evaluate on Friday for improvement. Maintain NPO for now If he fails swallow evaluation Friday then discuss plans for PEG tube if family agrees (3) Pneumonia due to COVID-19 virus: Chest x-ray on admission had progressed significantly since his previous hospital stay a few days prior. - Fluctuates between room air and 1L, no distress at all. - Was not a good candidate for remdesivir -- CrCl is nearly <30, and given he is 10+ days out from illness when he presented. (4) CKD (chronic kidney disease), stage III: Baseline CrCL 30s/40s. - Cr is 1.1 today, continue D10W as he pulled out NG tube (5) Coronary artery disease: No evidence of ACS, has a history of stents placed in 2019. - Cont Coreg, ASA, statin (6) Type 2 diabetes mellitus: Pharmacy glycemic consult placed. - Holding oral agents - Continue insulin as per pharmacy -> Sugars in last 24 hours tolerable. (7) Hypertension: BP is 115/75. - Continue Coreg when able (8) DVT prophylaxis: Lovenox 30mg BID -- higher dose due to increased risk of VTE in setting of COVID-19 Admission and Anticipated Discharge Date Admission Date: January 12, 2020 Subjective patient removed his mitts and pulled out NG tube this morning this happened once already on 01/26 told RN to leave out for now, will discuss with family labs are stable this morning, vitals stable patient is disoriented, no detailed ROS questions possible Review of Systems Review of Systems: Unobtainable due to cognitive status Physical Exam Constitutional: well developed, well nourished and + frail appearing; no acute distress ENMT: Mouth: + tongue abnormality (thrush) and + dry oral mucous membranes (extremely dry) Neck: trachea midline, no thyromegaly Respiratory: normal respiratory effort; no respiratory distress, no labored breathing and no cough Auscultation: no crackles, no rales, no rhonchi and no wheezes Cardiovascular: RRR, no murmur, no edema Gastrointestinal (Abdomen): normal bowel sounds, soft, nontender, no hepatosplenomegaly Musculoskeletal: Head/Neck/Chest: normocephalic, head atraumatic and neck supple Extremities: extremities normal to inspection and + abnormal strength (generalized weakness) Skin: no rashes, warm and dry Neurologic: CN's II-XI intact bilaterally, moves all extremities, awake and + confused; no focal motor deficits Psychiatric: Orientation: alert, oriented to person and + guarded; + not oriented to place and + not oriented to time Results & Data Results & Data ([facility]) Vital Signs (Past 12 Hours) Vital Signs Temp Pulse Pulse Resp BP BP Pulse Ox 01/29/20 07:46 37.2 C 82 16 130/79 94 01/28/20 23:48 37.3 C 86 18 128/76 95 Laboratory Results Laboratory Results - last 24 hr 01/28/20 01/28/20 01/28/20 11:55 17:58 21:51 WBC RBC Hgb Hct MCV MCH MCHC RDW Std Deviation RDW Coeff of Allie Plt Count MPV Sodium Potassium Chloride Carbon Dioxide Anion Gap BUN Creatinine Est Cr Clr Drug Dosing Est GFR ( Amer) Est GFR (Non-Af Amer) BUN/Creatinine Ratio Glucose POC Glucose 282 H 253 H 267 H Calcium Phosphorus Magnesium Total Bilirubin AST ALT Alkaline Phosphatase Total Protein Albumin Globulin Albumin/Globulin Ratio 01/29/20 01/29/2001/28/20 00:16 05:30 05:30 WBC 7.92 RBC 3.71 L Hgb 11.9 L Hct 35.8 L MCV 96.5 MCH 32.1 MCHC 33.2 RDW Std Deviation 49.0 H RDW Coeff of Allie 14.1 Plt Count 194 MPV 10.9 H Sodium 137 Potassium 4.4 Chloride 105 Carbon Dioxide 27 Anion Gap 5.0 BUN 27 H Creatinine 1.19 Est Cr Clr Drug Dosing 46.6 Est GFR ( Amer) 63.3 Est GFR (Non-Af Amer) 54.6 BUN/Creatinine Ratio 22.8 H Glucose 246 H POC Glucose 266 H Calcium 8.6 Phosphorus 2.5 Magnesium 2.2 Total Bilirubin 0.9 AST 24 ALT 40 Alkaline Phosphatase 99 Total Protein 7.0 Albumin 1.9 L Globulin 5.1 H Albumin/Globulin Ratio 0.4 L 01/29/20 06:30 WBC RBC Hgb Hct MCV MCH MCHC RDW Std Deviation RDW Coeff of Allie Plt Count MPV Sodium Potassium Chloride Carbon Dioxide Anion Gap BUN Creatinine Est Cr Clr Drug Dosing Est GFR ( Amer) Est GFR (Non-Af Amer) BUN/Creatinine Ratio Glucose POC Glucose 292 H Calcium Phosphorus Magnesium Total Bilirubin AST ALT Alkaline Phosphatase Total Protein Albumin Globulin Albumin/Globulin Ratio Medications Administered Current Inpatient Medications Acetaminophen (Acetaminophen 325 Mg Tab) 650 mg PO Q4H PRN PRN Reason: Pain Stop: 02/12/20 18:03 Albuterol (Albuterol Hfa 8 Gm Inhaler) 2 puffs INH Q6H PRN PRN Reason: Cough Stop: 02/14/20 08:54 Aspirin (Aspirin 81 Mg Ectab) [facility]: 02/12/20 21:59 Last Admin: 01/21/20 08:26 Dose: Not Given Documented by: Atorvastatin Calcium (Atorvastatin 40 Mg Tab) 80 mg PO [facility] Stop: 02/13/20 20:59 Last Admin: 01/21/20 21:09 Dose: Not Given Documented by: Carvedilol (Carvedilol 25 Mg Tab) 25 mg PO BID@0800,2000 [facility] Stop: 02/13/20 07:59 Last Admin: 01/21/20 21:09 Dose: Not Given Documented by: Dextrose (Dextrose 50% 50 Ml Syringe) 25 - 50 ml IV UD PRN; Protocol PRN Reason: Hypoglycemia Protocol Stop: 02/13/20 11:44 Enoxaparin Sodium (Enoxaparin Inj 30 Mg/0.3 Ml Syr) 30 mg SQ Q12H [facility] Stop: 02/11/20 20:59 Last Admin: 01/28/20 20:37 Dose: 30 mg Documented by: Enteral Nutritional Formula (Peptamen 1.5 Srinivasan 1,000 Ml Bag) 1,000 ml NG UD PRN; Protocol PRN Reason: TUBE FEEDS Stop: 02/24/20 17:29 Last Admin: 01/27/20 21:36 Dose: 1,000 ml Documented by: Glucagon (Glucagon For Inj 1 Mg Vial) 1 mg IM UD PRN; Protocol PRN Reason: Hypoglycemia Protocol Stop: 02/13/20 11:44 Glucose (Glucose 40% Gel 15 Gm Tube) 15 - 30 gm PO UD PRN; Protocol PRN Reason: Hypoglycemia Protocol Stop: 02/13/20 11:44 Last Admin: 01/19/20 08:54 Dose: 15 gm Documented by: Glucose (Glucose 10 Tabs/Tube) 4 - 8 tabs PO UD PRN; Protocol PRN Reason: Hypoglycemia Protocol Stop: 02/13/20 11:44 Guaifenesin/Dextromethorphan (Guaifenesin/Dextrom Syrup 200mg/20mg 10ml Udc) 20 ml PO Q6H PRN PRN Reason: Cough Stop: 02/14/20 17:46 Haloperidol Lactate (Haloperidol Lactate 5 Mg/Ml 1 Ml Vial) 2.5 mg IM Q12 PRN PRN Reason: Agitation Stop: 02/15/20 10:36 Hydralazine HCl (Hydralazine Hcl 20 Mg/Ml Vial) 10 mg IV Q8H PRN PRN Reason: SBP>180 Stop: 02/13/20 20:55 Last Admin: 01/23/20 16:44 Dose: 10 mg Documented by: Lorazepam (Ativan) 0.25 mg in 0.5 mls @ 0.5 mls/min IV Q4H PRN PRN Reason: anxiety Stop: 02/15/20 14:39 Last Admin: 01/26/20 18:55 Dose: 0.5 mls/min Documented by: Dextrose (D10w) 1,000 mls @ 0 mls/hr IV .Q0M PRN PRN Reason: protocol (see label comments) Stop: 02/20/20 15:59 Lorazepam (Ativan) 0.5 mg in 1 mls @ 0.5 mls/min IV UD PRN PRN Reason: Agitation Stop: 02/19/20 16:47 Last Admin: 01/27/20 17:46 Dose: 0.5 mls/min Documented by: Fluconazole (Diflucan) 100 mg in 50 mls @ 100 mls/hr IV Q24H [facility]; Protocol Stop: 02/02/20 14:59 Last Infusion: 01/28/20 17:03 Dose: Infused Documented by: Insulin Aspart (Insulin Aspart 100 Units/Ml 3 Ml Pen) 0 units SC Q6 [facility] Stop: 02/24/20 17:59 Last Admin: 01/29/20 06:32 Dose: 11 units Documented by: Insulin Glargine (Insulin Glargine Solostar 100 Units/Ml 3 Ml Pen) 0 units SC BID [facility]; Protocol Stop: 02/25/20 20:59 Last Admin: 01/28/20 21:52 Dose: 10 units Documented by: Miscellaneous (Carbohydrates For Hypoglycemia ) 15 - 30 gm PO UD PRN PRN Reason: Hypoglycemia Treatment Stop: 02/13/20 11:44 Last Admin: 01/19/20 08:45 Dose: 15 gm Documented by: Miscellaneous Information (Pharmacy Glycemic Mgmt Consult) 1 ea N/A UD PRN PRN Reason: Consult Stop: 02/11/20 19:57 Nystatin (Nystatin Susp 500,000 U/5 Ml Udc) 5 ml PO QID [facility] Stop: 02/02/20 16:59 Last Admin: 01/28/20 20:40 Dose: Not Given Documented by: Ondansetron HCl (Ondansetron Inj 2 Mg/Ml 2 Ml Vial) 4 mg IV Q6H PRN PRN Reason: Nausea Stop: 02/11/20 19:06 Pantoprazole Sodium (Pantoprazole 40 Mg Tab) 40 mg PO BID@0800,2000 [facility] Stop: 02/11/20 19:59 Last Admin: 01/21/20 21:00 Dose: Not Given Documented by: Sterile Water (Tube Feeding Water Flush) 150 ml NG Q3H [facility] Stop: 02/24/20 17:29 Last Admin: 01/29/20 05:55 Dose: 150 ml Documented by: PG Care Time/CCT Total # of Minutes Spent Total Time Spent with Patient: Total time spent is greater than 50% in coordination of care (as documented) at patient's floor/unit and/or counseling patient: Coding Level of Care Code 65717 Subseq Hosp Care Lvl 2 Diagnoses Metabolic encephalopathy G93.41 Dysphagia R13.10 Pneumonia due to COVID-19 virus U07.1; J12.89 CKD (chronic kidney disease), stage III N18.3 Coronary artery disease I25.10 Associated angina: without angina Coronary Disease-Associated Artery/Lesion type: [place] artery [place] vs. transplanted heart: [place] heart Type 2 diabetes mellitus E11.22; N18.3 Chronic kidney disease stage: stage 3 (moderate) Diabetes mellitus complication detail: with chronic kidney disease Diabetes mellitus complication status: with kidney complications Diabetes mellitus fpc insulin use: without terminal carman use Hypertension I10 Hypertension type: essential hypertension DVT prophylaxis Z29.9 (1) Type 2 diabetes mellitus Chronic kidney disease stage: stage 3 (moderate) Diabetes mellitus complication detail: with chronic kidney disease Diabetes mellitus complication status: with kidney complications Diabetes mellitus fpc insulin use: without terminal carman use Qualified Code(s): E11.22 - Type 2 diabetes mellitus with diabetic chronic kidney disease; N18.3 - Chronic kidney disease, stage 3 (moderate) (2) Coronary artery disease Associated angina: without angina Coronary Disease-Associated Artery/Lesion type: [place] artery [place] vs. transplanted heart: [place] heart Qualified Code(s): I25.10 - Atherosclerotic heart disease of [place] coronary artery without angina pectoris (3) Hypertension Hypertension type: essential hypertension Qualified Code(s): I10 - Essential (primary) hypertension
--- NOTE | 2020-01-29 10:15 | Pharmacy Report ---
Pharmacy Glycemic Short Note 2 - Date of Service January 29, 2020 - Glycemic Short BSG Results (Last 24 hours): 01/28/20 01/28/20 01/28/20 11:55 17:58 21:51 Glucose POC Glucose 282 H 253 H 267 H 01/29/20 01/29/20 01/29/20 00:16 05:30 06:30 Glucose 246 H POC Glucose 266 H 292 H OUTPATIENT ANTIDIABETIC REGIMEN: * amaryl, metformin, januvia * HbA1c: 9.7% (11/29/19) ASSESSMENT: 01/28 * Patient received total of 58 units of insulin yesterday, of which 25 were basal insulin * Fasting BSG elevated at 292 mg/dL - follow Lantus scale for this AM * Nurse notified pharmacy later this morning that patient pulled out NG tube again / tube feeds stopped - d/c basal for HS PLAN FOR INPATIENT GLYCEMIC CONTROL: * Hold outpatient oral diabetes medications * Basal insulin - * Lantus 15 units SQ this AM, hold PM Lantus as tube feedings stopped * Bolus insulin - * NovoLog per scale ACHS or Q6hrs while NPO * Goal Range: Low 110 mg/dL - High 140 mg/dL * Correction Factor: 25 mg/dL/unit * Nutritional / Prandial insulin per carb ratio of 1 unit per 9 grams CHO consumed PLAN FOR DISCHARGE: * tbd - will depend on goals of care at discharge
[2020-01-29] MEDS: INSULIN GLARGINE SOLOSTAR 100 UNITS/ML 3 ML PEN SC SCH (10:39)
[2020-01-29] MEDS: ENOXAPARIN INJ 30 MG/0.3 ML SYR SQ SCH ×2 (10:40→21:19)
[2020-01-29] MEDS: NYSTATIN SUSP 500,000 U/5 ML UDC PO SCH ×4 (10:41→21:01)
[2020-01-29] MEDS: FLUCONAZOLE 100 MG/50 ML BAG IV SCH (15:59)
[2020-01-30] MEDS: INSULIN ASPART 100 UNITS/ML 3 ML PEN SC SCH ×4 (00:43→18:22)
[2020-01-30] MEDS: TUBE FEEDING WATER FLUSH NG SCH ×8 (03:16→21:13)
[2020-01-30] MEDS: ENOXAPARIN INJ 30 MG/0.3 ML SYR SQ SCH ×2 (09:00→21:12)
[2020-01-30] MEDS: NYSTATIN SUSP 500,000 U/5 ML UDC PO SCH ×4 (09:01→21:13)
--- NOTE | 2020-01-30 13:04 | Hospitalist Progress Note ---
Date of Service January 30, 2020 Assessment & Plan (1) Goals of care, counseling/discussion: long discussion with family regarding goals of care on 01/29 they want him to get nutrition at this point, short term goal of improving nutrition to help improve strength they are on board with consult for GI for PEG tube as he pulled out NG tube twice they want him to come home but also want him to get stronger I discussed that those two likely would not go hand in hand, he would need to go to SNF for rehab if they want him stronger the patient's only stated goal is that he wants to go home I asked his daughter Sadie to discuss the reality of the situation if their goal is for him to get back to close to baseline then he will need rehab if their goal is to establish reliable source of nutrition with PEG tube with hope that he starts to eat more over next few weeks, but not worry about rehab then he would come home, however, he would still need 24/7 care at home as his is too weak to provide care by herself I had originally offered home hospice as an option a week ago but that is no longer in consideration total time discussing goals of care and planning was 25 minutes (2) Metabolic encephalopathy: Due to COVID 19, delirium - Continue treatment with oxygen, redirection, supportive care - Possible that steroids were causing some confusion, but stopped dexamethasone 01/19, no improvement in mental status. Many cases of COVID delirium are well documented. - Dr. Pelaez discussed with Sadie (daughter) on 01/26; she feels he would want nutrition if he were of sound mind. NG tube replaced (he pulled one out) on 01/26 and restarted tube feeds. patient pulled out NG tube again on 01/28 in the morning, hold on placing another NG tube as it is very difficult, requires mild sedation discussed other option of PEG tube with Sadie on 01/28 and 01/29 family wants PEG tube if GI agrees, will place consult for tomorrow certainly his mental status is improving, he is calmer, not pulling out lines, no longer has mitts he is more responsive (3) Dysphagia: Won't eat, did not participate with speech therapy. High risk for aspiration. - Continue Diflucan 100mg IV & Nystatin QID mouth swab - AUTO SERVICE INSTRUCTOR evaluated on 01/26. He held food and water in his mouth, but could not transfer posteriorly or swallow. AUTO SERVICE INSTRUCTOR will re-evaluate on Friday for improvement. Maintain NPO for now If he fails swallow evaluation Friday plan for PEG tube (4) Pneumonia due to COVID-19 virus: Chest x-ray on admission had progressed significantly since his previous hospital stay a few days prior. - Fluctuates between room air and 1L, no distress at all. - Was not a good candidate for remdesivir -- CrCl is nearly <30, and given he is 10+ days out from illness when he presented. (5) CKD (chronic kidney disease), stage III: Baseline CrCL 30s/40s. - Cr is 1.1 today, continue D10W as he pulled out NG tube (6) Coronary artery disease: No evidence of ACS, has a history of stents placed in 2019. - Cont Coreg, ASA, statin (7) Type 2 diabetes mellitus: Pharmacy glycemic consult placed. - Holding oral agents - Continue insulin as per pharmacy -> Sugars in last 24 hours tolerable. (8) Hypertension: BP is 115/75. - Continue Coreg when able (9) DVT prophylaxis: Lovenox 30mg BID -- higher dose due to increased risk of VTE in setting of COVID-19 Admission and Anticipated Discharge Date Admission Date: January 12, 2020 Subjective patient refusing sugar checks today, will ask RN to hold off for now will start back on IV fluids to keep him well hydrated patient knows he is in the hospital when I show him a picture of his he says "that's my Chula" he says that he wants to go home and be with his family I tried to explain plans for possible PEG tube to give him nutrition asked him is he would be okay to be kept alive on tube feeds, he just stared back, did not answer I had a long discussion with his daughter Sadie regarding plans, goals of care his and children met and discussed the situation they want him to have nutrition to at least give him a chance to recover some of his mental capacity they understand that some of the damage could be permanent, he may never recover but they feel like if they bring him home they will just watch him starve to which they could not do I told Sadie that the patient told me that he wants to come home, so that is his goal Sadie confirmed that she and her mother would not want him to go to a SNF I told her that the only way he could come home right now would be with 24/7 care from family or paid care givers adding nutrition is a component of his recovery but he is extremely weak, needs rehab told her that it will take weeks to months of recovery and that is not a guarantee discussed that there are multiple goals at play, that if we are going to pursue nutrition with tube feeds and hope for him to regain strength, they need to be willing for him to go to a SNF, she doesn't think her mother would want this and she is not in favor of it either will plan for GI consultation tomorrow, she requested Ivory TAVARES, to discuss PEG tube will have speech therapy see him again to look for any signs of improvement from swallowing Review of Systems Review of Systems: Unobtainable due to cognitive status Physical Exam Constitutional: well developed, well nourished and + frail appearing; no acute distress ENMT: Mouth: + tongue abnormality (thrush) and + dry oral mucous membranes (extremely dry) Neck: trachea midline, no thyromegaly Respiratory: normal respiratory effort; no respiratory distress, no labored breathing and no cough Auscultation: no crackles, no rales, no rhonchi and no wheezes Cardiovascular: RRR, no murmur, no edema Gastrointestinal (Abdomen): normal bowel sounds, soft, nontender, no hepatosplenomegaly Musculoskeletal: Head/Neck/Chest: normocephalic, head atraumatic and neck supple Extremities: extremities normal to inspection and + abnormal strength (generalized weakness) Skin: no rashes, warm and dry Neurologic: CN's II-XI intact bilaterally, moves all extremities, awake and + confused; no focal motor deficits Psychiatric: Orientation: alert, oriented to person and + guarded; + not oriented to place and + not oriented to time Results & Data Results & Data ([place]) Vital Signs (Past 12 Hours) Vital Signs Temp Pulse Resp BP Pulse Ox 01/30/20 08:05 36.6 C 89 16 119/79 93 Laboratory Results Laboratory Results - last 24 hr 01/29/20 01/30/20 01/30/20 18:03 00:26 06:00 POC Glucose 174 H 145 H 159 H Medications Administered Current Inpatient Medications Acetaminophen (Acetaminophen 325 Mg Tab) 650 mg PO Q4H PRN PRN Reason: Pain Stop: 02/12/20 18:03 Albuterol (Albuterol Hfa 8 Gm Inhaler) 2 puffs INH Q6H PRN PRN Reason: Cough Stop: 02/14/20 08:54 Aspirin (Aspirin 81 Mg Ectab) 81 mg PO QAM [facility] Stop: 02/12/20 21:59 Last Admin: 01/21/20 08:26 Dose: Not Given Documented by: Atorvastatin Calcium (Atorvastatin 40 Mg Tab) 80 mg PO HS [facility] Stop: 02/13/20 20:59 Last Admin: 01/21/20 21:09 Dose: Not Given Documented by: Carvedilol (Carvedilol 25 Mg Tab) 25 mg PO BID@0800,2000 [facility] Stop: 02/13/20 07:59 Last Admin: 01/21/20 21:09 Dose: Not Given Documented by: Dextrose (Dextrose 50% 50 Ml Syringe) 25 - 50 ml IV UD PRN; Protocol PRN Reason: Hypoglycemia Protocol Stop: 02/13/20 11:44 Enoxaparin Sodium (Enoxaparin Inj 30 Mg/0.3 Ml Syr) 30 mg SQ Q12H [facility] Stop: 02/11/20 20:59 Last Admin: 01/30/20 09:00 Dose: 30 mg Documented by: Enteral Nutritional Formula (Peptamen 1.5 Srinivasan 1,000 Ml Bag) 1,000 ml NG UD PRN; Protocol PRN Reason: TUBE FEEDS Stop: 02/24/20 17:29 Last Admin: 01/27/20 21:36 Dose: 1,000 ml Documented by: Glucagon (Glucagon For Inj 1 Mg Vial) 1 mg IM UD PRN; Protocol PRN Reason: Hypoglycemia Protocol Stop: 02/13/20 11:44 Glucose (Glucose 40% Gel 15 Gm Tube) 15 - 30 gm PO UD PRN; Protocol PRN Reason: Hypoglycemia Protocol Stop: 02/13/20 11:44 Last Admin: 01/19/20 08:54 Dose: 15 gm Documented by: Glucose (Glucose 10 Tabs/Tube) 4 - 8 tabs PO UD PRN; Protocol PRN Reason: Hypoglycemia Protocol Stop: 02/13/20 11:44 Guaifenesin/Dextromethorphan (Guaifenesin/Dextrom Syrup 200mg/20mg 10ml Udc) 20 ml PO Q6H PRN PRN Reason: Cough Stop: 02/14/20 17:46 Haloperidol Lactate (Haloperidol Lactate 5 Mg/Ml 1 Ml Vial) 2.5 mg IM Q12 PRN PRN Reason: Agitation Stop: 02/15/20 10:36 Hydralazine HCl (Hydralazine Hcl 20 Mg/Ml Vial) 10 mg IV Q8H PRN PRN Reason: SBP>180 Stop: 02/13/20 20:55 Last Admin: 01/23/20 16:44 Dose: 10 mg Documented by: Lorazepam (Ativan) 0.25 mg in 0.5 mls @ 0.5 mls/min IV Q4H PRN PRN Reason: anxiety Stop: 02/15/20 14:39 Last Admin: 01/26/20 18:55 Dose: 0.5 mls/min Documented by: Dextrose (D10w) 1,000 mls @ 0 mls/hr IV .Q0M PRN PRN Reason: protocol (see label comments) Stop: 02/20/20 15:59 Lorazepam (Ativan) 0.5 mg in 1 mls @ 0.5 mls/min IV UD PRN PRN Reason: Agitation Stop: 02/19/20 16:47 Last Admin: 01/27/20 17:46 Dose: 0.5 mls/min Documented by: Fluconazole (Diflucan) 100 mg in 50 mls @ 100 mls/hr IV Q24H [facility]; Protocol Stop: 02/02/20 14:59 Last Infusion: 01/29/20 16:29 Dose: Infused Documented by: Acetaminophen (Ofirmev) 1,000 mg in 100 mls @ 400 mls/hr IV Q8H PRN PRN Reason: fever/pain Stop: 02/02/20 01:00 Dextrose/Sodium Chloride (D5w And 1/2nss) 1,000 mls @ 80 mls/hr IV .[id number] [facility] Stop: 02/29/20 12:59 Insulin Aspart (Insulin Aspart 100 Units/Ml 3 Ml Pen) 0 units SC Q6 [facility] Stop: 02/24/20 17:59 Last Admin: 01/30/20 06:38 Dose: Not Given Documented by: Miscellaneous (Carbohydrates For Hypoglycemia ) 15 - 30 gm PO UD PRN PRN Reason: Hypoglycemia Treatment Stop: 02/13/20 11:44 Last Admin: 01/19/20 08:45 Dose: 15 gm Documented by: Miscellaneous Information (Pharmacy Glycemic Mgmt Consult) 1 ea N/A UD PRN PRN Reason: Consult Stop: 02/11/20 19:57 Nystatin (Nystatin Susp 500,000 U/5 Ml Udc) 5 ml PO QID [facility] Stop: 02/02/20 16:59 Last Admin: 01/30/20 09:01 Dose: Not Given Documented by: Ondansetron HCl (Ondansetron Inj 2 Mg/Ml 2 Ml Vial) 4 mg IV Q6H PRN PRN Reason: Nausea Stop: 02/11/20 19:06 Pantoprazole Sodium (Pantoprazole 40 Mg Tab) 40 mg PO BID@0800,2000 [facility] Stop: 02/11/20 19:59 Last Admin: 01/21/20 21:00 Dose: Not Given Documented by: Sterile Water (Tube Feeding Water Flush) 150 ml NG Q3H [facility] Stop: 02/24/20 17:29 Last Admin: 01/30/20 12:16 Dose: Not Given Documented by: PG Care Time/CCT Total # of Minutes Spent Total Time Spent: 40 Total Time Spent with Patient: Total time spent is greater than 50% in coordination of care (as documented) at patient's floor/unit and/or counseling patient: Coding Level of Care Code 50785 Subseq Hosp Care Lvl 3 Diagnoses Goals of care, counseling/discussion Z71.89 Metabolic encephalopathy G93.41 Dysphagia R13.10 Pneumonia due to COVID-19 virus U07.1; J12.89 CKD (chronic kidney disease), stage III N18.3 Coronary artery disease I25.10 Associated angina: without angina Coronary Disease-Associated Artery/Lesion type: [place] artery [place] vs. transplanted heart: [place] heart Type 2 diabetes mellitus E11.22; N18.3 Chronic kidney disease stage: stage 3 (moderate) Diabetes mellitus complication detail: with chronic kidney disease Diabetes mellitus complication status: with kidney complications Diabetes mellitus intermediate school teacher insulin use: without intermediate school teacher use Hypertension I10 Hypertension type: essential hypertension DVT prophylaxis Z29.9 (1) Type 2 diabetes mellitus Chronic kidney disease stage: stage 3 (moderate) Diabetes mellitus complication detail: with chronic kidney disease Diabetes mellitus complication status: with kidney complications Diabetes mellitus intermediate school teacher insulin use: without jail use Qualified Code(s): E11.22 - Type 2 diabetes mellitus with diabetic chronic kidney disease; N18.3 - Chronic kidney disease, stage 3 (moderate) (2) Coronary artery disease Associated angina: without angina Coronary Disease-Associated Artery/Lesion type: [place] artery [place] vs. transplanted heart: [place] heart Qualified Code(s): I25.10 - Atherosclerotic heart disease of [place] coronary artery without angina pectoris (3) Hypertension Hypertension type: essential hypertension Qualified Code(s): I10 - Essential (primary) hypertension
[2020-01-30] MEDS: ACETAMINOPHEN 1,000 MG/100 ML VIAL IV PRN (13:32)
[2020-01-30] MEDS: D5W AND 1/2NSS 1,000 ML IV SCH (13:32)
--- NOTE | 2020-01-30 13:35 | Pharmacy Report ---
Pharmacy Glycemic Short Note 2 - Date of Service January 30, 2020 - Glycemic Short BSG Results (Last 24 hours): 01/29/20 01/30/20 01/30/20 18:03 00:26 06:00 POC Glucose 174 H 145 H 159 H OUTPATIENT ANTIDIABETIC REGIMEN: * amaryl, metformin, januvia * HbA1c: 9.7% (11/29/19) ASSESSMENT: 01/29 * Patient received total of 26 units of insulin yesterday - TFs continue to be on hold as NG tube out * Had held basal insulin yesterday - provider now starting IVFs with dextrose this afternoon. Plan to start basal tonight and add a scale if BSGs trend up * Spoke with nurse, patient refusing insulin check at lunch - will try again to check BSG later tonight 01/28 * Patient received total of 58 units of insulin yesterday, of which 25 were basal insulin * Fasting BSG elevated at 292 mg/dL - follow Lantus scale for this AM * Nurse notified pharmacy later this morning that patient pulled out NG tube again / tube feeds stopped - d/c basal for HS PLAN FOR INPATIENT GLYCEMIC CONTROL: * Hold outpatient oral diabetes medications * Basal insulin - * Lantus 0-8 units HS - give if >200 BSG * Bolus insulin - * NovoLog per scale ACHS or Q6hrs while NPO * Goal Range: Low 110 mg/dL - High 140 mg/dL * Correction Factor: 25 mg/dL/unit * Nutritional / Prandial insulin per carb ratio of 1 unit per 9 grams CHO consumed
[2020-01-30] MEDS: FLUCONAZOLE 100 MG/50 ML BAG IV SCH (17:10)
[2020-01-30] MEDS ORDERED: INSULIN GLARGINE SOLOSTAR 100 UNITS/ML 3 ML PEN SC SCH (21:00)
[2020-01-31] MEDS: INSULIN ASPART 100 UNITS/ML 3 ML PEN SC SCH ×6 (00:12→20:45)
[2020-01-31] MEDS: TUBE FEEDING WATER FLUSH NG SCH ×8 (00:13→22:11)
[2020-01-31] MEDS: D5W AND 1/2NSS 1,000 ML IV SCH ×2 (00:23→16:13)
[2020-01-31] MEDS: ACETAMINOPHEN 1,000 MG/100 ML VIAL IV PRN (04:39)
[2020-01-31] MEDS: INSULIN GLARGINE SOLOSTAR 100 UNITS/ML 3 ML PEN SC SCH ×2 (08:25→20:46)
[2020-01-31] MEDS: NYSTATIN SUSP 500,000 U/5 ML UDC PO SCH ×4 (08:30→20:47)
--- NOTE | 2020-01-31 09:51 | Ultrasound Report ---
US abdomen ltd ascites HISTORY: 89 years-old Male eval for ascites; preprocedure for PEG follow-up study in a patient with possible ascites COMPARISON: [facility] 01/27/2020, CT abdomen and pelvis 05/04/2015 TECHNIQUE: Limited abdominal ultrasound assessing for ascites was obtained assessing grayscale appear ance and color flow. FINDINGS: Cyst of the right kidney is partially imaged. No ascites identified. Nonspecific heterogeneity of the liver. IMPRESSION: No abdominal ascites. ACT 112: Negative or not required by law. The above report was generated using voice recognition software. It may contain grammatical, syntax o r spelling errors. Electronically signed by: Bishnu Shankar M.D. 01/31/2020 9:50 AM
--- NOTE | 2020-01-31 10:39 | XRay Report ---
XR chest 1V portable CLINICAL HISTORY: pre op clearance, PEG tube COMPARISON STUDY: Chest radiograph January 18, 2020. FINDINGS: Lung volumes are mildly diminished. This is unchanged. No pneumothorax or pleural effusion. Bilateral airspace opacities and interstitial thickening are noted. Opacities have slightly increase d. IMPRESSION: 1. Slight increase in bilateral airspace opacities and interstitial thickening which favor an infecti ous process. 2. Low lung volumes, unchanged. ACT 112: Negative or not required by law. Electronically signed by: Sina Morgan M.D. 01/31/2020 10:37 AM
--- NOTE | 2020-01-31 10:55 | Pharmacy Report ---
Pharmacy Glycemic Short Note 2 - Date of Service January 31, 2020 - Glycemic Short BSG Results (Last 24 hours): 01/30/20 01/31/20 01/31/20 18:02 00:02 05:48 POC Glucose 250 H 237 H 242 H 01/31/20 08:07 POC Glucose 221 H OUTPATIENT ANTIDIABETIC REGIMEN: * amaryl, metformin, januvia * HbA1c: 9.7% (11/29/19) ASSESSMENT: 01/30 * BSGs did climb into the mid-200s with the initiation of dextrose containing IVFs yesterday * Patient has been refusing some BSG checks leading to omission of Novolog at lunchtime yesterday and omission of Lantus last evening * Given current BSG trajectory, ongoing IV dextrose admin, and omission of basal insulin - will begin a scheduled Novolog Q 4 hrs scale that will provide a portion of the "basal" insulin needs while also covering the carbs in IV dextrose 01/29 * Patient received total of 26 units of insulin yesterday - TFs continue to be on hold as NG tube out * Had held basal insulin yesterday - provider now starting IVFs with dextrose this afternoon. Plan to start basal tonight and add a scale if BSGs trend up * Spoke with nurse, patient refusing insulin check at lunch - will try again to check BSG later tonight 01/28 * Patient received total of 58 units of insulin yesterday, of which 25 were basal insulin * Fasting BSG elevated at 292 mg/dL - follow Lantus scale for this AM * Nurse notified pharmacy later this morning that patient pulled out NG tube a gain / tube feeds stopped - d/c basal for HS PLAN FOR INPATIENT GLYCEMIC CONTROL: * Hold outpatient oral diabetes medications * Basal insulin - increase * Lantus 10 units SQ BID - hold if BSG less than 110 * Bolus insulin - increase * Novolog SQ Q 4 hrs:
--- NOTE | 2020-01-31 11:20 | Gastrointestinal Consultation ---
Date of Consultation January 31, 2020 Assessment & Plan (1) Inadequate oral intake: This is an 89 y/o male admitted with COVID-19 pneumonia, with delirium/encephalopathy and unable/unwilling to have PO intake. GI consulted to consider PEG. US ABD with no ascites, and CXR showing slightly increased opacities related to his pneumonia. - Given pt's ongoing illness including pneumonia, perhaps would be best to attempt PEG in approx 1 week to give him some more time to optimize his medical regimen, pulmonary status, and recover a bit more. - Would recommend nutrition consult - Would defer mgmt of his multiple comorbidities to hospitalist team Thank you for allowing us to participate in the care of this patient. Please call with any acute changes, questions or concerns. Please see addendum below with additional recommendation from my supervising physician. (2) Pneumonia due to COVID-19 virus: Supervising Physician Co-Signing Physician Notes I saw and evaluated the patient. We were asked to consult with regard to placement of a percutaneous feeding tube. The patient was admitted with Covid pneumonia and appears to be slowly recovering from this. He has had persistent problems with confusion and inability to eat. The patient did have an attempt at a speech pathology evaluation however this was unsuccessful. Patient is unable to give much historical information due to his mental status. I did review the patient's chart. Physical examination Elderly male in no obvious distress Crackles bilaterally Impression: Patient with a history of Covid pneumonia with slow recovery and thought to have problems with dementia in addition to a metabolic encephalopathy. Given the Covid pneumonia I would recommend holding on feeding tube placement for 1 week maximize the potential of success decrease potential for complications. In the meantime we would suggest further evaluation with a swallowing study in addition to a speech pathology consultation to determine if there is a specific mechanism for the patient's inability to eat. History of Present Illness Reason for Consultation: Consult for PEG placement Attending Physician: Carlton Harris DO History of Present Illness This is an 89 y/o male with PMHx CAD s/p stent 2019, CKD, T2DM, HTN, admitted since 01/11 for COVID pneumonia tx with Decadron, O2, and ABX, and has had what appears to be COVID delirium/encephalopathy, and GI consulted to consider PEG tube as pt does not appear to be able or willing to eat. Upon REGISTERED NURSE eval, pt was not able to transfer substances to his throat or swallow. He had removed NGT x 2 previously. Currently pt is NPO, and pt's family is wanting to consider PEG tube for nutritional support. Due to altered mental status, HPI limited to chart review and discussion with care team. Pt resting comfortably in bed, awake, watching TV; denies any pain or discomfort; though is confused - doesn't know the year, where he is or why he is here; when questions are asked he mostly doesn't respond, sometimes yes/no answers. CXR today showing slight increase in bilateral airspace opacities. US ABD with no ascites. Pt not having much stool; no apparent hematochezia/melena. Labs stable with HGB 11.9, cr 1.19 and VSS. Allergies Allergy/AdvReac Type Severity Reaction Status Date / Time No Known Drug Allergies Allergy Verified 01/12/20 14:39 Home Medications Medication Instructions Recorded Confirmed Type aspirin 81 mg tablet,delayed 81 mg PO QAM 03/12/18 01/12/20 History release clonidine HCl 0.1 mg tablet 0.1 mg PO DAILY PRN tab 11/04/18 01/12/20 History pantoprazole 40 mg tablet,delayed 40 mg PO BID #180 tab 02/24/19 01/12/20 Rx release carvedilol 25 mg tablet 25 mg PO BID #180 tab 05/06/19 01/12/20 Rx metformin 1,000 mg tablet 1,000 mg PO BID #180 tab 05/17/19 01/12/20 Rx atorvastatin 80 mg tablet 80 mg PO HS #90 tab 06/21/19 01/12/20 Rx glimepiride 4 mg tablet 4 mg PO BID #180 tab 08/04/19 01/12/20 Rx Januvia 25 mg PO HS 01/08/20 01/12/20 History ondansetron HCl [Zofran] 4 mg PO Q8H PRN 5 Days #20 tab 01/09/20 01/12/20 Rx Patient History Medical History Actinic keratosis Anaplasmosis Atrial premature complex Benign localized prostatic hyperplasia with lower urinary tract symptoms (LUTS) BMI 29.0-29.9,adult Chews tobacco regularly CKD (chronic kidney disease), stage III Constipation Depression Diabetes mellitus Diabetic nephropathy Diabetic peripheral neuropathy Dieulafoy lesion of stomach Erythematous papules of skin Gastritis GERD (gastroesophageal reflux disease) Helicobacter pylori ab+ (10/27/13) Hiatal hernia History of SCC (squamous cell carcinoma) of skin Hypertension Rhabdomyolysis SI joint arthritis Trochanteric bursitis Type 2 diabetes mellitus Unilateral primary osteoarthritis, left hip Urinary hesitancy Visual impairment Vitamin D deficiency Surgical History History of appendectomy History of colonoscopy History of transurethral resection of prostate Family History Unknown Diabetes Coronary heart disease Father Prostate cancer Social History Smoking Status: Never smoker Tobacco Type: Smokeless Tobacco (Dip or Chew) Age Started Using Tobacco: 22; Second Hand Exposure: No; Hx Alcohol Use: No Hx Substance Use: No Preferred Language: Hebrew Communication Ability: Effective Hearing Ability: Use of Hearing Aid Emt/Paramedic Required: No Beliefs That Will Affect Care: None marital status: Current Living Situation: Spouse Current Living Situation Comment: lives in [place] current occupational status: retired 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; 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; [employer] How many Children do You have: 4 Feels Safe at Home: Yes Dental Care, Regularly: No Physical Activity Frequency: Daily Seatbelt Use: always Sunscreen Use: No Assistive Devices: None Review of Systems Review of Systems: Unobtainable due to cognitive status Physical Exam Constitutional: WD/WN, vitals as above no acute distress chronically ill Eyes: PERRL, conjunctivae normal, anicteric sclerae Respiratory: normal respiratory effort; no cough Cardiovascular: RRR, no murmur, no edema Gastrointestinal (Abdomen): normal bowel sounds, soft, nontender, no hepatosplenomegaly Inspection/Auscultation: abdomen not distended Skin: no rashes, warm and dry Psychiatric: Orientation: alert; + not oriented x 3 Results & Data ([facility]) Vital Signs (Past 12 Hours) Vital Signs Temp Pulse Resp BP Pulse Ox 01/31/20 07:39 36.9 C 77 16 132/32 L 92 Laboratory Results 01/31/20 01/31/20 01/31/20 Range/Units 08:07 05:48 00:02 POC Glucose 221 H 242 H 237 H (70-99) mg/dl 01/30/20 Range/Units 18:02 POC Glucose 250 H (70-99) mg/dl Diagnostic Findings US ABD FINDINGS: Cyst of the right kidney is partially imaged. No ascites identified. Nonspecific heterogeneity of the liver. IMPRESSION: No abdominal ascites. CXR 01/31/20 1. Slight increase in bilateral airspace opacities and interstitial thickening which favor an infectious process. 2. Low lung volumes, unchanged.
[2020-01-31] MEDS ORDERED: TPN/PPN CONSULT PHARMACY SCH (13:50)
[2020-01-31 15:07] LABS: BUN Creatinine Ratio 20.4 (10-20); Calcium 8.7 mg/dl (8.5-10.1); Est GFR (African American) 63.9; Est GFR (Non-African American) 55.2; Magnesium 2.1 mg/dl (1.8-2.4); Phosphorus 2.8 mg/dl (2.5-4.9); Potassium 5.1 mmol/L (3.5-5.1)
[2020-01-31] MEDS ORDERED: Custom Peripheral Pn 1,920 ML in TPN BAG 0 ML IV SCH (16:00)
[2020-01-31] MEDS ORDERED: [UNRECOGNIZED DRUG - REMARK] ONE (16:00)
[2020-01-31] MEDS: FLUCONAZOLE 100 MG/50 ML BAG IV SCH (16:18)
--- NOTE | 2020-01-31 17:40 | Pharmacy Report ---
Pharmacy PN Initial Consult - Date of Service January 31, 2020 - Scope Pharmacy has been consulted to manage parenteral nutrition orders and order appropriate labs. As part of the Nutrition Support Team guidelines, pharmacy will work in conjunction with dietary when determining the patients caloric needs. - Subjective The patient is a 89 year old M admitted on 01/12/20 16:14 for COVID 19 PNEUMONIA. Patient is to receive parenteral nutrition for ongoing delirium co mplicating enteral feeding (has removed NGT multiple times), refusal to eat, and inability to place PEG tube (see GI consult assessment / recommendations) Pertinent PMH: * CAD with stenting, 10/2018 LVEF 55-60% * CKD3 * T2DM * Diabetic nephropathy * BPH * TURP * Gastritis * Dieulafoy lesion stomach * Hiatal Hernia * GERD * Vit D deficiency * Hypertension - Objective Height: 5 ft 11 in Weight: 78.3 kg Diet: NPO Vascular Access:: 20 g L lower forearm Intake & Output (Last 24Hrs): Intake & Output 01/29/20 01/30/20 01/31/20 02/01/20 06:59 06:59 06:59 06:59 Intake Total 50 / 50 50 / 50 1568.667 / 1568.667 563.333 / 563.333 Output Total 400 / 400 975 / 975 625 / 625 100 / 100 Balance -350 / -350 -925 / -925 943.667 / 943.667 463.333 / 463.333 Weight 78.3 kg 78.3 kg Laboratory Data (Last 24 Hrs):: 01/31/20 14:09 Sodium 140 Potassium 5.1 Chloride 110 H Carbon Dioxide 22 BUN 24 H Creatinine 1.18 Glucose 189 H Calcium 8.7 Phosphorus 2.8 Magnesium 2.1 Triglycerides 101 Recent Pertinent Medications:: Fluconazole IV Nystatin swish/swallow Novolog Lantus Pantoprazole PO Zofran IV Nutrition Assessment:: Please refer to the Notes section of the EMR for the most recent warehouse operations manager 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 - Assessment Providing nutrition to this patient has been complicated by delirium and refusal to eat. Swallow eval was unsuccessfully attempted. He has also removed NGT multiple times and GI consult stated that PEG cannot be placed for ~ 1 week. His PO intake has been nil for multiple days. He was receiving PPN for a short period of time during this admission. Will initiate PPN again utilizing a similar formula of macros. Will start with relatively low dextrose content in light of elevated BSGs with the initiation of D5 1/2 NS @ 80cc/hr yesterday. Todays bag will only contain ~ 100gm dextrose. Reg insulin 2 units per 10gm CHO will be added to bag to cover dextrose provision. Elytes were not available at the time TPN/PPN consult obtained. Given the time crunch to enter, process and compound PPN order, PPN was formulated based upon what patient was tolerating when last used. E-lytes from 2 days ago did not show any abnormalities other they hyperglycemia and mildly elevated BUN. I did however order a STAT chemistry today, and upon return of results it was noted that patients K was now 5.1. This is a change for him. The sample did not appear hemolyzed. His SCr has not been climbing however his UOP was poor yesterday and appears to be poor today as well. K was added to his PPN bag today. The amount of K added was only 40mEq to be delivered over 24 hrs, so this may be tolerated. To be safe however, will screen for hyperkalemia this evening and hold PPN if K > 5.2. Cumulative I/O states patient is +16 L however weight does not reflect this, in fact weight is down since admission. Will need to watch volume status closely given h/o CKD, advanced age and CAD. Volume of todays PPN will match that of his current maint IVF (80cc/hr). Maint IVF will d/c upon initiation of PPN. Per nursing and providers physical assessment: normal resp effort, no edema, no JVD. Sats in 90s on RA and non-hypotensive. He is afebrile. Given patients h/o gastritis, GERD and dieulafoys lesion of stomach - will consider adding famotidine to next bag of PPN as I notice he has been refusion the ordered pantoprazole. - Plan For day 1 of PN administration, the following will be ordered: Macronutrients Amino acids 60 grams/day Dextrose 100 grams/day Lipids 40 grams/day Micronutrients Combined electrolytes 40 mL - contains 35 mEq Na, 20 meq K, 4.5 mEq Ca, 5 mEq Mg, 35 mEq Cl, 29.5 mEq acetate per 20 mL Sodium phosphate 36 MMol Sodium chloride 15 mEq Sodium acetate 0 mEq Potassium phosphate 0 mMol Potassium chloride 0 mEq Potassium acetate 0 mEq Magnesium sulfate 0 mEq Calcium gluconate 0 mEq Multivitamins 10 mL Trace Elements 1 mL Additional additives: none Total volume 1920 mL to be infused over 24 hrs will provide 980 kcal/day Final osmolarity 751 mOsm/L (maximum for PPN is 900 mOsm/L) Labs to be ordered per PN order protocol Pharmacy will follow and adjust parenteral nutrition orders on a daily basis. Thank you.
[2020-01-31 21:44] LABS: Calcium 8.8 mg/dl (8.5-10.1); Creatinine Clr Calc Pharmacy 47.8 ml/min; Est GFR (African American) 65.3; Est GFR (Non-African American) 56.3; Potassium 3.9 mmol/L (3.5-5.1)
--- NOTE | 2020-01-31 22:57 | Hospitalist Progress Note ---
Date of Service January 31, 2020 Assessment & Plan (1) Goals of care, counseling/discussion: long discussion with family regarding goals of care on 01/29 and 01/30 they want him to get nutrition at this point, short term goal of improving nutrition to help improve strength they are on board with consult for GI for PEG tube as he pulled out NG tube twice they want him to come home but also want him to get stronger I discussed that those two likely would not go hand in hand, he would need to go to SNF for rehab if they want him stronger the patient's only stated goal is that he wants to go home focus on getting PEG tube this week if possible, defer to GI will start PPN while waiting (2) Metabolic encephalopathy: Due to COVID 19, delirium - Continue treatment with oxygen, redirection, supportive care - Possible that steroids were causing some confusion, but stopped dexamethasone 01/19, no improvement in mental status. Many cases of COVID delirium are well documented. - Dr. Pelaez discussed with Sadie (daughter) on 01/26; she feels he would want nutrition if he were of sound mind. NG tube replaced (he pulled one out) on 01/26 and restarted tube feeds. patient pulled out NG tube again on 01/28 in the morning, hold on placing another NG tube as it is very difficult, requires mild sedation discussed other option of PEG tube with Sadie on 01/28 and 01/29 family wants PEG tube, will try to get one placed this week certainly his mental status is improving, he is calmer, not pulling out lines, no longer has mitts he is more responsive however, he cannot eat at all, coughed up applesauce and water, will not initiate swallow (3) Dysphagia: Won't eat, did not participate with speech therapy. High risk for aspiration. - Continue Diflucan 100mg IV & Nystatin QID mouth swab, mouth looks much better - DIRECTOR SERVICE evaluated on 01/26. He held food and water in his mouth, but could not transfer posteriorly or swallow he had the same findings on 01/30, coughed back up applesauce and water he is now NPO will attempt to get PEG tube placed (4) Pneumonia due to COVID-19 virus: Chest x-ray on admission had progressed significantly since his previous hospital stay a few days prior. - Fluctuates between room air and 1L, no distress at all. - Was not a good candidate for remdesivir -- CrCl is nearly <30, and given he is 10+ days out from illness when he presented. CXR 01/30 shows progressive infiltrates, however, symptoms are resolved (5) CKD (chronic kidney disease), stage III: Baseline CrCL 30s/40s. - Cr is stable today, checked for starting PPN (6) Coronary artery disease: No evidence of ACS, has a history of stents placed in 2019. - Cont Coreg, ASA, statin (7) Type 2 diabetes mellitus: Pharmacy glycemic consult placed. - Holding oral agents - Continue insulin as per pharmacy -> Sugars in last 24 hours tolerable. (8) Hypertension: BP is 119/79 unable to take medications PO (9) DVT prophylaxis: Lovenox 30mg BID -- higher dose due to increased risk of VTE in setting of COVID-19 Admission and Anticipated Discharge Date Admission Date: January 12, 2020 Subjective patient did not do well with bedside speech study, could not swallow applesauce or water I updated his family they want to pursue the PEG tube and start tube feeds got CXR and abdominal US for GI, ruled out ascites, CXR still with infiltrates but this will be on CXR for weeks, clinically much improved, stable will start on PPN while awaiting PEG tube placement long discussion again with his daughter the patient's only stated goal is to go home, he is tired of being here and is refusing things such as glucose checks family wants PEG tube I will ask GI if they can do it this week CM and palliative care working with family to set realistic goals they know they need 24/7 care at home for him Review of Systems Review of Systems: Unobtainable due to cognitive status (denies pain and shortness of breath, cannot complete detailed ROS) Physical Exam Constitutional: well developed, well nourished and + frail appearing; no acute distress ENMT: external ear and nose normal, oropharynx normal (thrush resolved) Neck: trachea midline, no thyromegaly Respiratory: normal respiratory effort; no respiratory distress, no labored breathing and no cough Auscultation: no crackles, no rales, no rhonchi and no wheezes Cardiovascular: RRR, no murmur, no edema Gastrointestinal (Abdomen): normal bowel sounds, soft, nontender, no hepatosplenomegaly Musculoskeletal: Head/Neck/Chest: normocephalic, head atraumatic and neck supple Extremities: extremities normal to inspection and + abnormal strength (generalized weakness) Skin: no rashes, warm and dry Neurologic: CN's II-XI intact bilaterally, moves all extremities, awake and + confused; no focal motor deficits Psychiatric: Orientation: alert, oriented to person and + guarded; + not oriented to place and + not oriented to time Results & Data Results & Data ([facility]) Vital Signs (Past 12 Hours) Vital Signs Temp Pulse Resp BP BP Pulse Ox 01/31/20 22:32 37.0 C 82 20 102/64 93 01/31/20 15:22 36.9 C 106 H 16 134/61 93 Laboratory Results Laboratory Results - last 24 hr 01/31/20 01/31/20 01/31/20 00:02 05:48 08:07 Sodium Potassium Chloride Carbon Dioxide Anion Gap BUN Creatinine Est Cr Clr Drug Dosing Est GFR ( Amer) Est GFR (Non-Af Amer) BUN/Creatinine Ratio Glucose POC Glucose 237 H 242 H 221 H Calcium Phosphorus Magnesium Triglycerides 01/31/20 01/31/20 01/31/20 12:05 14:09 16:37 Sodium 140 Potassium 5.1 Chloride 110 H Carbon Dioxide 22 Anion Gap 8.0 BUN 24 H Creatinine 1.18 Est Cr Clr Drug Dosing 47.0 Est GFR ( Amer) 63.9 Est GFR (Non-Af Amer) 55.2 BUN/Creatinine Ratio 20.4 H Glucose 189 H POC Glucose 180 H 190 H Calcium 8.7 Phosphorus 2.8 Magnesium 2.1 Triglycerides 101 01/31/20 01/31/20 20:41 20:58 Sodium 140 Potassium 3.9 D Chloride 109 H Carbon Dioxide 25 Anion Gap 6.0 BUN 28 H Creatinine 1.16 Est Cr Clr Drug Dosing 47.8 Est GFR ( Amer) 65.3 Est GFR (Non-Af Amer) 56.3 BUN/Creatinine Ratio 24.0 H Glucose 189 H POC Glucose 209 H Calcium 8.8 Phosphorus Magnesium Triglycerides Medications Administered Current Inpatient Medications Acetaminophen (Acetaminophen 325 Mg Tab) 650 mg PO Q4H PRN PRN Reason: Pain Stop: 02/12/20 18:03 Albuterol (Albuterol Hfa 8 Gm Inhaler) 2 puffs INH Q6H PRN PRN Reason: Cough Stop: 02/14/20 08:54 Aspirin (Aspirin 81 Mg Ectab) 81 mg PO QAM [facility] Stop: 02/12/20 21:59 Last Admin: 01/21/20 08:26 Dose: Not Given Documented by: Atorvastatin Calcium (Atorvastatin 40 Mg Tab) 80 mg PO HS [facility] Stop: 02/13/20 20:59 Last Admin: 01/21/20 21:09 Dose: Not Given Documented by: Carvedilol (Carvedilol 25 Mg Tab) 25 mg PO BID@0800,2000 [facility] Stop: 02/13/20 07:59 Last Admin: 01/21/20 21:09 Dose: Not Given Documented by: Dextrose (Dextrose 50% 50 Ml Syringe) 25 - 50 ml IV UD PRN; Protocol PRN Reason: Hypoglycemia Protocol Stop: 02/13/20 11:44 Enoxaparin Sodium (Enoxaparin Inj 30 Mg/0.3 Ml Syr) 30 mg SQ Q12H [facility] Stop: 02/11/20 20:59 Last Admin: 01/30/20 21:12 Dose: Not Given Documented by: Enteral Nutritional Formula (Peptamen 1.5 Srinivasan 1,000 Ml Bag) 1,000 ml NG UD PRN; Protocol PRN Reason: TUBE FEEDS Stop: 02/24/20 17:29 Last Admin: 01/27/20 21:36 Dose: 1,000 ml Documented by: Glucagon (Glucagon For Inj 1 Mg Vial) 1 mg IM UD PRN; Protocol PRN Reason: Hypoglycemia Protocol Stop: 02/13/20 11:44 Glucose (Glucose 40% Gel 15 Gm Tube) 15 - 30 gm PO UD PRN; Protocol PRN Reason: Hypoglycemia Protocol Stop: 02/13/20 11:44 Last Admin: 01/19/20 08:54 Dose: 15 gm Documented by: Glucose (Glucose 10 Tabs/Tube) 4 - 8 tabs PO UD PRN; Protocol PRN Reason: Hypoglycemia Protocol Stop: 02/13/20 11:44 Guaifenesin/Dextromethorphan (Guaifenesin/Dextrom Syrup 200mg/20mg 10ml Udc) 20 ml PO Q6H PRN PRN Reason: Cough Stop: 02/14/20 17:46 Haloperidol Lactate (Haloperidol Lactate 5 Mg/Ml 1 Ml Vial) 2.5 mg IM Q12 PRN PRN Reason: Agitation Stop: 02/15/20 10:36 Hydralazine HCl (Hydralazine Hcl 20 Mg/Ml Vial) 10 mg IV Q8H PRN PRN Reason: SBP>180 Stop: 02/13/20 20:55 Last Admin: 01/23/20 16:44 Dose: 10 mg Documented by: Lorazepam (Ativan) 0.25 mg in 0.5 mls @ 0.5 mls/min IV Q4H PRN PRN Reason: anxiety Stop: 02/15/20 14:39 Last Admin: 01/26/20 18:55 Dose: 0.5 mls/min Documented by: Lorazepam (Ativan) 0.5 mg in 1 mls @ 0.5 mls/min IV UD PRN PRN Reason: Agitation Stop: 02/19/20 16:47 Last Admin: 01/27/20 17:46 Dose: 0.5 mls/min Documented by: Fluconazole (Diflucan) 100 mg in 50 mls @ 100 mls/hr IV Q24H DERICK; Protocol Stop: 02/02/20 14:59 Last Infusion: 01/31/20 17:07 Dose: Infused Documented by: Acetaminophen (Ofirmev) 1,000 mg in 100 mls @ 400 mls/hr IV Q8H PRN PRN Reason: fever/pain Stop: 02/02/20 01:00 Last Infusion: 01/31/20 04:54 Dose: Infused Documented by: Nutrition (Parenteral) 1,920 (ml/ TPN BAG) 1,920 mls @ 80 mls/hr IV .Q24H DERICK; Protocol Stop: 02/01/20 15:59 Last Admin: 01/31/20 16:11 Dose: 80 mls/hr Documented by: Insulin Aspart (Insulin Aspart 100 Units/Ml 3 Ml Pen) 0 units SC Q4 DERICK; Protocol Stop: 03/01/20 07:59 Last Admin: 01/31/20 20:45 Dose: 11 units Documented by: Insulin Glargine (Insulin Glargine Solostar 100 Units/Ml 3 Ml Pen) 10 units SC Q12 DERICK Stop: 03/01/20 08:59 Last Admin: 01/31/20 20:46 Dose: 10 units Documented by: Miscellaneous (Carbohydrates For Hypoglycemia ) 15 - 30 gm PO UD PRN PRN Reason: Hypoglycemia Treatment Stop: 02/13/20 11:44 Last Admin: 01/19/20 08:45 Dose: 15 gm Documented by: Miscellaneous Information (Pharmacy Glycemic Mgmt Consult) 1 ea N/A UD PRN PRN Reason: Consult Stop: 02/11/20 19:57 Miscellaneous Information (Tpn/Ppn Consult Pharmacy) 1 ea N/A UD DERICK Stop: 03/01/20 13:49 Nystatin (Nystatin Susp 500,000 U/5 Ml Udc) 5 ml PO QID [facility] Stop: 02/02/20 16:59 Last Admin: 01/31/20 20:47 Dose: Not Given Documented by: Ondansetron HCl (Ondansetron Inj 2 Mg/Ml 2 Ml Vial) 4 mg IV Q6H PRN PRN Reason: Nausea Stop: 02/11/20 19:06 Pantoprazole Sodium (Pantoprazole 40 Mg Tab) 40 mg PO BID@0800,2000 [facility] Stop: 02/11/20 19:59 Last Admin: 01/21/20 21:00 Dose: Not Given Documented by: Sterile Water (Tube Feeding Water Flush) 150 ml NG Q3H [facility] Stop: 02/24/20 17:29 Last Admin: 01/31/20 22:11 Dose: Not Given Documented by: PG Care Time/CCT Total # of Minutes Spent Total Time Spent with Patient: Total time spent is greater than 50% in coordination of care (as documented) at patient's floor/unit and/or counseling patient: Coding Level of Care Code 29266 Subseq Hosp Care Lvl 2 Diagnoses Goals of care, counseling/discussion Z71.89 Metabolic encephalopathy G93.41 Dysphagia R13.10 Pneumonia due to COVID-19 virus U07.1; J12.89 CKD (chronic kidney disease), stage III N18.3 Coronary artery disease I25.10 Associated angina: without angina Coronary Disease-Associated Artery/Lesion type: [place] artery [place] vs. transplanted heart: [place] heart Type 2 diabetes mellitus E11.22; N18.3 Chronic kidney disease stage: stage 3 (moderate) Diabetes mellitus complication detail: with chronic kidney disease Diabetes mellitus complication status: with kidney complications Diabetes mellitus longterm insulin use: without longterm use Hypertension I10 Hypertension type: essential hypertension DVT prophylaxis Z29.9 (1) Type 2 diabetes mellitus Chronic kidney disease stage: stage 3 (moderate) Diabetes mellitus complication detail: with chronic kidney disease Diabetes mellitus complication status: with kidney complications Diabetes mellitus longterm insulin use: without longterm use Qualified Code(s): E11.22 - Type 2 diabetes mellitus with diabetic chronic kidney disease; N18.3 - Chronic kidney disease, stage 3 (moderate) (2) Coronary artery disease Associated angina: without angina Coronary Disease-Associated Artery/Lesion type: [place] artery [place] vs. transplanted heart: [place] heart Qualified Code(s): I25.10 - Atherosclerotic heart disease of [place] coronary artery without angina pectoris (3) Hypertension Hypertension type: essential hypertension Qualified Code(s): I10 - Essential (primary) hypertension
[2020-02-01] MEDS: TUBE FEEDING WATER FLUSH NG SCH ×5 (03:50→13:27)
[2020-02-01] MEDS: INSULIN ASPART 100 UNITS/ML 3 ML PEN SC SCH ×6 (03:58→21:28)
[2020-02-01 07:21] LABS: BUN Creatinine Ratio 27.8 (10-20); Calcium 8.5 mg/dl (8.5-10.1); Creatinine Clr Calc Pharmacy 55.4 ml/min; Est GFR (African American) 78.1; Est GFR (Non-African American) 67.4; Magnesium 2.2 mg/dl (1.8-2.4); Potassium 3.8 mmol/L (3.5-5.1)
[2020-02-01 07:42] LABS: Phosphorus 4.3 mg/dl (2.5-4.9)
[2020-02-01] MEDS: INSULIN GLARGINE SOLOSTAR 100 UNITS/ML 3 ML PEN SC SCH ×2 (09:26→21:29)
[2020-02-01] MEDS: NYSTATIN SUSP 500,000 U/5 ML UDC PO SCH ×2 (09:26→13:13)
--- NOTE | 2020-02-01 12:03 | Gastroenterology Progress Note ---
Date of Service February 01, 2020 Assessment & Plan (1) Inadequate oral intake: This is an 89 y/o male admitted with COVID-19 pneumonia, with delirium/encephalopathy and unable/unwilling to have PO intake. GI consulted to consider PEG. Today pt seems more alert, yet still confused. - Pt slow to recover from his pneumonia; with somewhat improving mental status today, would recommend giving him some more time to further recover and see if PEG would be indicated at that point. Perhaps if he continues to improve and is willing/able to eat, PEG would not be needed. - Recommend nutrition consult; agree supplemental nutrition - Would defer mgmt of his multiple comorbidities to hospitalist team Please call with any acute changes, questions or concerns. Please see addendum below with additional recommendation from my supervising physician. Admission and Anticipated Discharge Date Admission Date: January 12, 2020 Supervising Physician Co-Signing Physician Notes I saw and evaluated the patient this afternoon. He is out of bed in a chair but does seem somewhat short of breath but is able to talk in his short sentences. His mental status does seem to be better as compared to yesterday. Given his recent diagnosis of Covid pneumonia and persistent shortness of breath we would recommend against a PEG tube at the present time until his respiratory status has improved. I would certainly recommend further with the family to determine if this is truly what they want for him. Should the patient's respiratory status improve a PEG tube could certainly be offered early next week. We will have our service reevaluate the patient on Friday to determine if a feeding tube can be placed for him Subjective Pt seen in f/u of inadequate oral intake, pt admitted with COVID pneumonia and has been having issues with slow recovery and associated delirium/encephalopathy. Today seems more alert and responsive; he answers my questions more directly and states he has no complaints. He remains somewhat confused; doesn't know where he is or why he is here; doesn't know the date; but denies abd pain, n/v, CP, dyspnea, fever. Does not recall having attempt at speech eval yesterday. He has been started on supplemental nutrition Review of Systems Review of Systems: All systems reviewed & are unremarkable except as noted in HPI & below Physical Exam Constitutional: WD/WN, vitals as above no acute distress Eyes: PERRL, conjunctivae normal, anicteric sclerae Respiratory: normal respiratory effort; no cough Cardiovascular: Rate/Rhythm: regular rate and regular rhythm Gastrointestinal (Abdomen): normal bowel sounds, soft, nontender, no hepatosplenomegaly Inspection/Auscultation: abdomen not distended Skin: no rashes, warm and dry Psychiatric: Orientation: alert; + not oriented x 3 Results & Data ([facility]) Vital Signs (Past 12 Hours) Vital Signs Temp Pulse Resp BP Pulse Ox 02/01/20 11:40 89 L 02/01/20 08:50 36.5 C 82 18 128/56 L 93
[2020-02-01] MEDS ORDERED: FUROSEMIDE 40 MG in SYRINGE 0 ML IV ONE (14:15)
[2020-02-01 14:42] LABS: iSTAT Allen Test Pass; iSTAT Art Bld Gas pCO2 Correct 27 mmHg (35-46); iSTAT Art Bld Gas pH Corrected 7.484 (7.35-7.45); iSTAT Arterial Blood Gas HCO3 21 meg/L (19-24); iSTAT Arterial Blood Gas pCO2 28 mmHg (35-46); iSTAT Arterial Blood Gas pH 7.47 (7.35-7.45); iSTAT Arterial Blood Gas pO2 157 mmHg (80-95); iSTAT Arterial Blood Gas pO2 C 151; iSTAT Carbon Dioxide 21 mmol/L (24-31); iSTAT FiO2 100 %; iSTAT Hematocrit 35 % (42-52); iSTAT Hemoglobin 11.9 g/dl (14.0-18.0); iSTAT Potassium 4.1 mmol/L (3.3-5.0); iSTAT Site R Radial; iSTAT Sodium 139 mmol/L (135-144)
--- NOTE | 2020-02-01 15:00 | XRay Report ---
XR chest 1V portable CLINICAL HISTORY: hypoxia COMPARISON STUDY: 01/31/2020 FINDINGS: The heart remains enlarged. There are persistent bilateral pulmonary airspace opacities con sistent with a multifocal pneumonia. There is no overt failure. There are no large pleural effusions. [ IMPRESSION: Persistent multifocal airspace opacities, consistent with a multifocal pneumonia ACT 112: Negative or not required by law. Electronically signed by: Dmitry Carranza M.D. 02/01/2020 2:58 PM
[2020-02-01] MEDS: FLUCONAZOLE 100 MG/50 ML BAG IV SCH (15:37)
--- NOTE | 2020-02-01 15:37 | Hospitalist Progress Note ---
Date of Service February 01, 2020 Assessment & Plan (1) Acute respiratory failure with hypoxemia: sudden desaturation this afternoon, was stable on room air this morning CXR does not show obvious pulmonary edema could consider PE? he was off Lovenox, last dose was 01/29 in the morning, trying to determine why it was held however, if this was PE would expect PCO2 to be normal with tachypnea will increase Lovenox to 1mg / kg now since he also has afib to cover for PE once stable can get CTA chest will give Lasix 40mg IV x 1 to dry out his lungs as much as we can, but doubt volume overload transfer to PCU 30 minutes spent at the bedside managing patient (2) Atrial fibrillation: new diagnosis, unsure how long he has been in afib but vitals stable this morning seems like he went into sometime late this morning will transfer to PCU to give IV medications since he is strict NPO hesitant to give amiodarone because unsure of duration and he was not fulling anticoagulated likely use Diltiazem will get echocardiogram increase Lovenox to 1mg/kg q12 (3) Goals of care, counseling/discussion: long discussion with family regarding goals of care on 01/29 and 01/30 they want him to get nutrition at this point, short term goal of improving nutrition to help improve strength they are on board with consult for GI for PEG tube as he pulled out NG tube twice they want him to come home but also want him to get stronger I discussed that those two likely would not go hand in hand, he would need to go to SNF for rehab if they want him stronger the patient's only stated goal is that he wants to go home focus on getting PEG tube this week if possible, defer to GI will start PPN while waiting with respiratory and cardiovascular instability, hold off on PEG tube, likely need to wait until next week (4) Metabolic encephalopathy: Due to COVID 19, delirium - Continue treatment with oxygen, redirection, supportive care - Possible that steroids were causing some confusion, but stopped dexamethasone 01/19, no improvement in mental status. Many cases of COVID delirium are well documented. - Dr. Pelaez discussed with Sadie (daughter) on 01/26; she feels he would want nutrition if he were of sound mind. NG tube replaced (he pulled one out) on 01/26 and restarted tube feeds. patient pulled out NG tube again on 01/28 in the morning, hold on placing another NG tube as it is very difficult, requires mild sedation discussed other option of PEG tube with Sadie on 01/28 and 01/29 family wants PEG tube, will try to get one placed this week certainly his mental status is improving, he is calmer, not pulling out lines, no longer has mitts he is more responsive however, he cannot eat at all, coughed up applesauce and water, will not initiate swallow he was able to participate with therapy today and yesterday which is an improvement (5) Dysphagia: Won't eat, did not participate with speech therapy. High risk for aspiration. - Continue Diflucan 100mg IV & Nystatin QID mouth swab, mouth looks much better - [employer] evaluated on 01/26. He held food and water in his mouth, but could not transfer posteriorly or swallow he had the same findings on 01/30, coughed back up applesauce and water he is now NPO will attempt to get PEG tube placed, but will hold off for now with hypoxia and afib (6) Pneumonia due to COVID-19 virus: Chest x-ray on admission had progressed significantly since his previous hospital stay a few days prior. - Fluctuates between room air and 1L, no distress at all. - Was not a good candidate for remdesivir -- CrCl is nearly <30, and given he is 10+ days out from illness when he presented. CXR 01/31 shows progressive infiltrates (7) CKD (chronic kidney disease), stage III: Baseline CrCL 30s/40s. - Cr is stable today, checked for starting PPN (8) Coronary artery disease: No evidence of ACS, has a history of stents placed in 2019. - Cont Coreg, ASA, statin (9) Type 2 diabetes mellitus: Pharmacy glycemic consult placed. - Holding oral agents - Continue insulin as per pharmacy -> Sugars in last 24 hours tolerable. (10) Hypertension: BP is 119/79 unable to take medications PO (11) DVT prophylaxis: Lovenox 30mg BID -- higher dose due to increased risk of VTE in setting of COVID-19 Admission and Anticipated Discharge Date Admission Date: January 12, 2020 Subjective patient seen this morning, he was OOB in a chair, doing well, no issues breathing I spoke with Dr. Alejandro today, he agreed to place PEG tube tomorrow however, shortly after I spoke with him the patient desaturated and I was called to the floor found to be 80% on 8L and HR up into the 130's EKG showed afib with rate of 114 with RBBB CXR with persistent infiltrates, no obvious pulmonary edema ABG with pCO2 28, PaO2 157, pH 7.4 suggesting respiratory alkalosis he was on Lovenox 30 BID until evening 01/29 called his daughter to give an update we will move to PCU so that I can manage his atrial fibrillation I called endoscopy, cancel the PEG for tomorrow will likely need to wait until early next week Review of Systems Review of Systems: All systems reviewed & are unremarkable except as noted in Subjective Constitutional: + fatigue and + weakness; no fever Respiratory: + dyspnea; no cough and no sputum production Cardiovascular: no chest pain Gastrointestinal: no abdominal pain, no nausea, no vomiting, no constipation and no diarrhea/loose stools Physical Exam Constitutional: well developed, well nourished and + frail appearing; no acute distress ENMT: external ear and nose normal, oropharynx normal (thrush resolved) Neck: trachea midline, no thyromegaly Respiratory: + labored breathing and + tachypneic; no respiratory distress and no cough Auscultation: + rales; no crackles, no rhonchi and no wheezes Cardiovascular: Rate/Rhythm: + tachycardic and + irregularly irregular Heart Sounds: normal S1 and normal S2; no murmur Extremities: normal capillary refill; no edema Gastrointestinal (Abdomen): normal bowel sounds, soft, nontender, no hepatosplenomegaly Musculoskeletal: Head/Neck/Chest: normocephalic, head atraumatic and neck supple Extremities: extremities normal to inspection and + abnormal strength (generalized weakness) Skin: no rashes, warm and dry Neurologic: CN's II-XI intact bilaterally, moves all extremities, awake and + confused; no focal motor deficits Psychiatric: Orientation: alert, oriented to person and + guarded; + not oriented to place and + not oriented to time Results & Data Results & Data ([facility]) Vital Signs (Past 12 Hours) Vital Signs Temp Pulse Pulse Pulse Resp BP Pulse Ox 02/01/20 14:15 138 H 02/01/20 14:05 152 H 30 H 02/01/20 13:49 130 H 22 88 L 02/01/20 13:26 22 90 02/01/20 11:40 89 L 02/01/20 08:50 36.5 C 82 18 128/56 L 93 Laboratory Results Laboratory Results - last 24 hr 01/31/20 01/31/20 01/31/20 16:37 20:41 20:58 POC Hgb POC Hct Sample Site POC pH POC pCO2 POC pO2 POC HCO3 POC Total CO2 POC Base Excess ABG pH (Temp Correct) ABG pCO2 (Temp Corrct POC ABG pO2 at Pt Temp POC ABG O2 Sat Antony Test O2 Delivery Device POC O2 Rate POC FiO2 IPAP POC Sodium Sodium 140 POC Potassium Potassium 3.9 D Chloride 109 H Carbon Dioxide 25 Anion Gap 6.0 BUN 28 H Creatinine 1.16 Est Cr Clr Drug Dosing 47.8 Est GFR ( Amer) 65.3 Est GFR (Non-Af Amer) 56.3 BUN/Creatinine Ratio 24.0 H Glucose 189 H POC Glucose 190 H 209 H Calcium 8.8 Phosphorus Magnesium 01/31/20 02/01/20 02/01/20 23:49 03:55 05:56 POC Hgb POC Hct Sample Site POC pH POC pCO2 POC pO2 POC HCO3 POC Total CO2 POC Base Excess ABG pH (Temp Correct) ABG pCO2 (Temp Corrct POC ABG pO2 at Pt Temp POC ABG O2 Sat Antony Test O2 Delivery Device POC O2 Rate POC FiO2 IPAP POC Sodium Sodium 141 POC Potassium Potassium 3.8 Chloride 110 H Carbon Dioxide 26 Anion Gap 5.0 BUN 28 H Creatinine 1.00 Est Cr Clr Drug Dosing 55.4 Est GFR ( Amer) 78.1 Est GFR (Non-Af Amer) 67.4 BUN/Creatinine Ratio 27.8 H Glucose 96 POC Glucose 130 H 79 Calcium 8.5 Phosphorus 4.3 D Magnesium 2.2 02/01/20 02/01/20 02/01/20 08:44 12:09 14:25 POC Hgb 11.9 L POC Hct 35 L Sample Site R Radial POC pH 7.47 H POC pCO2 28 L POC pO2 157 H POC HCO3 21 POC Total CO2 21 L POC Base Excess -3.0 ABG pH (Temp Correct) 7.484 H ABG pCO2 (Temp Corrct 27 L POC ABG pO2 at Pt Temp 151 POC ABG O2 Sat 100.0 H Antony Test Pass O2 Delivery Device BIPAP POC O2 Rate 12 POC FiO2 100 IPAP 10 POC Sodium 139 Sodium POC Potassium 4.1 Potassium Chloride Carbon Dioxide Anion Gap BUN Creatinine Est Cr Clr Drug Dosing Est GFR ( Amer) Est GFR (Non-Af Amer) BUN/Creatinine Ratio Glucose POC Glucose 125 H 117 H Calcium Phosphorus Magnesium Diagnostic Findings XR chest 1V portable CLINICAL HISTORY: hypoxia COMPARISON STUDY: 01/31/2020 FINDINGS: The heart remains enlarged. There are persistent bilateral pulmonary airspace opacities consistent with a multifocal pneumonia. There is no overt failure. There are no large pleural effusions.[ IMPRESSION: Persistent multifocal airspace opacities, consistent with a multifocal pneumonia Medications Administered Current Inpatient Medications Acetaminophen (Acetaminophen 325 Mg Tab) 650 mg PO Q4H PRN PRN Reason: Pain Stop: 02/12/20 18:03 Albuterol (Albuterol Hfa 8 Gm Inhaler) 2 puffs INH Q6H PRN PRN Reason: Cough Stop: 02/14/20 08:54 Aspirin (Aspirin 81 Mg Ectab) 81 mg PO QAM DERICK Stop: 02/12/20 21:59 Last Admin: 01/21/20 08:26 Dose: Not Given Documented by: Atorvastatin Calcium (Atorvastatin 40 Mg Tab) 80 mg PO HS DERICK Stop: 02/13/20 20:59 Last Admin: 01/21/20 21:09 Dose: Not Given Documented by: Carvedilol (Carvedilol 25 Mg Tab) 25 mg PO BID@0800,2000 [facility] Stop: 02/13/20 07:59 Last Admin: 01/21/20 21:09 Dose: Not Given Documented by: Dextrose (Dextrose 50% 50 Ml Syringe) 25 - 50 ml IV UD PRN; Protocol PRN Reason: Hypoglycemia Protocol Stop: 02/13/20 11:44 Enoxaparin Sodium (Enoxaparin Inj 30 Mg/0.3 Ml Syr) 30 mg SQ Q12H DERICK Stop: 02/11/20 20:59 Last Admin: 01/30/20 21:12 Dose: Not Given Documented by: Enteral Nutritional Formula (Peptamen 1.5 Srinivasan 1,000 Ml Bag) 1,000 ml NG UD PRN; Protocol PRN Reason: TUBE FEEDS Stop: 02/24/20 17:29 Last Admin: 01/27/20 21:36 Dose: 1,000 ml Documented by: Glucagon (Glucagon For Inj 1 Mg Vial) 1 mg IM UD PRN; Protocol PRN Reason: Hypoglycemia Protocol Stop: 02/13/20 11:44 Glucose (Glucose 40% Gel 15 Gm Tube) 15 - 30 gm PO UD PRN; Protocol PRN Reason: Hypoglycemia Protocol Stop: 02/13/20 11:44 Last Admin: 01/19/20 08:54 Dose: 15 gm Documented by: Glucose (Glucose 10 Tabs/Tube) 4 - 8 tabs PO UD PRN; Protocol PRN Reason: Hypoglycemia Protocol Stop: 02/13/20 11:44 Guaifenesin/Dextromethorphan (Guaifenesin/Dextrom Syrup 200mg/20mg 10ml Udc) 20 ml PO Q6H PRN PRN Reason: Cough Stop: 02/14/20 17:46 Haloperidol Lactate (Haloperidol Lactate 5 Mg/Ml 1 Ml Vial) 2.5 mg IM Q12 PRN PRN Reason: Agitation Stop: 02/15/20 10:36 Hydralazine HCl (Hydralazine Hcl 20 Mg/Ml Vial) 10 mg IV Q8H PRN PRN Reason: SBP>180 Stop: 02/13/20 20:55 Last Admin: 01/23/20 16:44 Dose: 10 mg Documented by: Lorazepam (Ativan) 0.25 mg in 0.5 mls @ 0.5 mls/min IV Q4H PRN PRN Reason: anxiety Stop: 02/15/20 14:39 Last Admin: 01/26/20 18:55 Dose: 0.5 mls/min Documented by: Lorazepam (Ativan) 0.5 mg in 1 mls @ 0.5 mls/min IV UD PRN PRN Reason: Agitation Stop: 02/19/20 16:47 Last Admin: 01/27/20 17:46 Dose: 0.5 mls/min Documented by: Fluconazole (Diflucan) 100 mg in 50 mls @ 100 mls/hr IV Q24H [facility]; Protocol Stop: 02/02/20 14:59 Last Infusion: 01/31/20 17:07 Dose: Infused Documented by: Acetaminophen (Ofirmev) 1,000 mg in 100 mls @ 400 mls/hr IV Q8H PRN PRN Reason: fever/pain Stop: 02/02/20 01:00 Last Infusion: 01/31/20 04:54 Dose: Infused Documented by: Nutrition (Parenteral) 1,920 (ml/ TPN BAG) 1,920 mls @ 0 mls/hr IV .Q0M [facility]; Protocol Last Infusion: 02/01/20 13:30 Dose: 0 mls/hr Documented by: Nutrition (Parenteral) 2,000 (ml/ TPN BAG) 2,000 mls @ 83 mls/hr IV .Q24H [facility]; Protocol Stop: 02/02/20 15:59 Insulin Aspart (Insulin Aspart 100 Units/Ml 3 Ml Pen) 0 units SC Q4 [facility]; Protocol Stop: 03/01/20 07:59 Last Admin: 02/01/20 13:12 Dose: 8 units Documented by: Insulin Glargine (Insulin Glargine Solostar 100 Units/Ml 3 Ml Pen) 10 units SC Q12 [facility] Stop: 03/01/20 08:59 Last Admin: 02/01/20 09:26 Dose: 10 units Documented by: Miscellaneous (Carbohydrates For Hypoglycemia ) 15 - 30 gm PO UD PRN PRN Reason: Hypoglycemia Treatment Stop: 02/13/20 11:44 Last Admin: 01/19/20 08:45 Dose: 15 gm Documented by: Miscellaneous Information (Pharmacy Glycemic Mgmt Consult) 1 ea N/A UD PRN PRN Reason: Consult Stop: 02/11/20 19:57 Miscellaneous Information (Tpn/Ppn Consult Pharmacy) 1 ea N/A UD DERICK Stop: 03/01/20 13:49 Nystatin (Nystatin Susp 500,000 U/5 Ml Ud) 5 ml PO QID [facility] Stop: 02/02/20 16:59 Last Admin: 02/01/20 13:13 Dose: 5 ml Documented by: Ondansetron HCl (Ondansetron Inj 2 Mg/Ml 2 Ml Vial) 4 mg IV Q6H PRN PRN Reason: Nausea Stop: 02/11/20 19:06 Pantoprazole Sodium (Pantoprazole 40 Mg Tab) 40 mg PO BID@0800,2000 [facility] Stop: 02/11/20 19:59 Last Admin: 01/21/20 21:00 Dose: Not Given Documented by: Sterile Water (Tube Feeding Water Flush) 150 ml NG Q3H [facility] Stop: 02/24/20 17:29 Last Admin: 02/01/20 13:27 Dose: Not Given Documented by: PG Care Time/CCT Total # of Minutes Spent Total Time Spent: 45 Total Time Spent with Patient: Total time spent is greater than 50% in coordination of care (as documented) at patient's floor/unit and/or counseling patient: Critical Care Time: Yes Total Critical Care Time: 30 This case had a high probability of a clinically significant, sudden, or life threatening deterioration of this patient's condition which required my full and direct attention, intervention and personal management. I spent 30 minutes at the bedside managing patient for acute hypoxic respiratory failure, required BIPAP, Lasix IV, transfer to PCU to treat atrial fibrillation with RVR Coding Level of Care Code 74688 Subseq Hosp Care Lvl 3 Diagnoses Acute respiratory failure with hypoxemia J96.01 Atrial fibrillation I48.91 Goals of care, counseling/discussion Z71.89 Metabolic encephalopathy G93.41 Dysphagia R13.10 Pneumonia due to COVID-19 virus U07.1; J12.89 CKD (chronic kidney disease), stage III N18.3 Coronary artery disease I25.10 Coronary Disease-Associated Artery/Lesion type: [place] artery [place] vs. transplanted heart: [place] heart Associated angina: without angina Type 2 diabetes mellitus E11.22; N18.3 Diabetes mellitus toe sewer insulin use: without custodial use Diabetes mellitus complication status: with kidney complications Diabetes mellitus complication detail: with chronic kidney disease Chronic kidney disease stage: stage 3 (moderate) Hypertension I10 Hypertension type: essential hypertension DVT prophylaxis Z29.9 Additional Codes Critical Care Time - Critical Care Time: Yes ([id number]) (1) Coronary artery disease Coronary Disease-Associated Artery/Lesion type: [place] artery [place] vs. transplanted heart: [place] heart Associated angina: without angina Qualified Code(s): I25.10 - Atherosclerotic heart disease of [place] coronary artery without angina pectoris (2) Type 2 diabetes mellitus Diabetes mellitus custodial insulin use: without custodial use Diabetes mellitus complication status: with kidney complications Diabetes mellitus complication detail: with chronic kidney disease Chronic kidney disease stage: stage 3 (moderate) Qualified Code(s): E11.22 - Type 2 diabetes mellitus with diabetic chronic kidney disease; N18.3 - Chronic kidney disease, stage 3 (moderate) (3) Hypertension Hypertension type: essential hypertension Qualified Code(s): I10 - Essential (primary) hypertension
[2020-02-01] MEDS ORDERED: Custom Peripheral Pn 2,000 ML in TPN BAG 0 ML IV SCH (16:00)
--- NOTE | 2020-02-01 16:45 | Electrocardiogram Report ---
Test Reason : Blood Pressure : / mmHG Vent. 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
[2020-02-01] MEDS ORDERED: ENOXAPARIN 1 MG/KG SQ SCH (18:12)
[2020-02-01] MEDS ORDERED: AMIODARONE IV BOLUS & DRIP IV STA (18:12)
[2020-02-01] MEDS ORDERED: STAT IV Infusion **Titration per Protocol STA (18:12)
[2020-02-01] MEDS ORDERED: METOPROLOL TARTRATE 1 MG/ML VIAL IV PRN (18:30)
[2020-02-01] MEDS ORDERED: AMIODARONE / D5W 150 MG/100 ML BAG IV STA (18:31)
[2020-02-01] MEDS ORDERED: 0.2 MICRON FILTER SET 1 EA IV ONE (18:35)
[2020-02-01] MEDS ORDERED: AMIODARONE / D5W 360 MG/200 ML BAG IV ONE (18:41)
[2020-02-01] MEDS: AMIODARONE / D5W 360 MG/200 ML BAG IV SCH ×2 (19:13→19:19)
[2020-02-01] MEDS: ENOXAPARIN 80 MG/0.8 ML SYR SQ SCH (19:39)
[2020-02-02] MEDS: INSULIN ASPART 100 UNITS/ML 3 ML PEN SC SCH ×5 (00:42→18:15)
[2020-02-02 06:12] LABS: BUN Creatinine Ratio 29.8 (10-20); Calcium 8.3 mg/dl (8.5-10.1); Creatinine Clr Calc Pharmacy 43.6 ml/min; Est GFR (African American) 58.5; Est GFR (Non-African American) 50.5; Magnesium 2.2 mg/dl (1.8-2.4); Phosphorus 4.5 mg/dl (2.5-4.9); Potassium 3.8 mmol/L (3.5-5.1)
[2020-02-02] MEDS: TUBE FEEDING WATER FLUSH NG SCH (07:17)
[2020-02-02] MEDS: NYSTATIN SUSP 500,000 U/5 ML UDC PO SCH (07:17)
[2020-02-02] MEDS: ENOXAPARIN 80 MG/0.8 ML SYR SQ SCH ×2 (08:01→19:35)
--- NOTE | 2020-02-02 09:54 | Hospitalist Progress Note ---
Date of Service February 02, 2020 Assessment & Plan (1) Refeeding syndrome: occurred afternoon on 01/31 was on PPN, signs/symptoms included sudden dyspnea, hypoxia, atrial fibrillation gave Lasix 40mg IV, stopped PPN, moved to PCU he is now completely stable plan to hold PPN, try to get PEG for enteral access once we can feed him, will take it slowly, monitor on PCU for any sudden decompensation (2) Acute respiratory failure with hypoxemia: sudden desaturation in afternoon on 01/31 with hypoxemia requiring 15L oxymask and BIPAP briefly CXR only showed persistent infiltrates BNP was not markedly elevated he was also in afib with RVR at the time most likely explanation was refeeding syndrome as he was getting PPN for about 24 hours prior to this happening refeeding syndrome can cause hypoxia, volume overload, arrhythmias moved to PCU, he has been stable all night, now stable on room air did get Lasix 40mg IV yesterday, appears euvolemic this morning will try to get PEG tube in next 1-2 days now that he is stable (3) Atrial fibrillation: new diagnosis on 01/31 on monitor today he is sinus with PACs and some brief runs of afib rates in 80's without rate control Lovenox 1mg/kg q12 keep on PCU to monitor rate/rhythm (4) Goals of care, counseling/discussion: long discussion with family regarding goals of care on 01/29 and 01/30 they want him to get nutrition at this point, short term goal of improving nutrition to help improve strength they are on board with consult for GI for PEG tube as he pulled out NG tube twice they want him to come home but also want him to get stronger I discussed that those two likely would not go hand in hand, he would need to go to SNF for rehab if they want him stronger the patient's only stated goal is that he wants to go home focus on getting PEG tube this week if possible, defer to GI (5) Metabolic encephalopathy: Due to COVID 19, delirium - Continue treatment with oxygen, redirection, supportive care - Possible that steroids were causing some confusion, but stopped dexamethasone 01/19, no improvement in mental status. Many cases of COVID delirium are well documented. - Dr. Pelaez discussed with Sadie (daughter) on 01/26; she feels he would want nutrition if he were of sound mind. NG tube replaced (he pulled one out) on 01/26 and restarted tube feeds. patient pulled out NG tube again on 01/28 in the morning, hold on placing another NG tube as it is very difficult, requires mild sedation discussed other option of PEG tube with Sadie on 01/28 and 01/29 family wants PEG tube, will try to get one placed this week certainly his mental status is improving, he is calmer, not pulling out lines, no longer has mitts he is more responsive today is probably the closest to normal I have seen him, he is talking a lot, says he just wants to go home with his [place] he is asking for food and says he is hungry will ask speech to see again this morning (6) Dysphagia: Won't eat, did not participate with speech therapy. High risk for aspiration. - Continue Diflucan 100mg IV & Nystatin QID mouth swab, mouth looks much better - ASSISTANT DIRECTOR OF NURSING evaluated on 01/26. He held food and water in his mouth, but could not transfer posteriorly or swallow he had the same findings on 01/30, coughed back up applesauce and water will have speech see him again today now that he is even more alert and asking for food hopeful that he can swallow better (7) Pneumonia due to COVID-19 virus: Chest x-ray on admission had progressed significantly since his previous hospital stay a few days prior. - Fluctuates between room air and 1L, no distress at all. - Was not a good candidate for remdesivir -- CrCl is nearly <30, and given he is 10+ days out from illness when he presented. CXR 01/31 shows progressive infiltrates (8) CKD (chronic kidney disease), stage III: Baseline CrCL 30s/40s. - Cr is stable today, checked for starting PPN (9) Coronary artery disease: No evidence of ACS, has a history of stents placed in 2019. - Cont Coreg, ASA, statin (10) Type 2 diabetes mellitus: Pharmacy glycemic consult placed. - Holding oral agents - Continue insulin as per pharmacy -> Sugars in last 24 hours tolerable. (11) Hypertension: BP is 119/79 unable to take medications PO (12) DVT prophylaxis: Lovenox 30mg BID -- higher dose due to increased risk of VTE in setting of COVID-19 Admission and Anticipated Discharge Date Admission Date: January 12, 2020 Subjective patient moved to 243 last night for afib, tachycardia, acute hypoxia most likely from refeeding syndrome with PPN as all of his symptoms are resolved breathing comfortably on room air, he is alert, says he wants to see his , says he is hungry reviewed with air sampling and monitoring, he is sinus rhythm with PACs, possible brief runs of afib labs are stable this morning, no fever discussed with GI and anesthesia, might have to do the PEG in the OR if COVID positive, would be tomorrow then will ask speech to evaluate again today as he is asking for food which is first time in weeks I called his daughter Katelyn to update her on plan Review of Systems Review of Systems: All systems reviewed & are unremarkable except as noted in Subjective Constitutional: + weakness; no fever, no chills, no sweats and no fatigue Ear, Nose, Mouth, Throat: no sore throat Respiratory: no cough and no dyspnea Cardiovascular: no chest pain Gastrointestinal: no abdominal pain, no nausea, no vomiting, no constipation and no diarrhea/loose stools Musculoskeletal: + muscle weakness Physical Exam Constitutional: well developed, well nourished and + frail appearing; no acute distress ENMT: external ear and nose normal, oropharynx normal (thrush resolved) Neck: trachea midline, no thyromegaly Respiratory: normal respiratory effort; no respiratory distress and no cough Auscultation: lungs clear to auscultation bilaterally Cardiovascular: RRR, no murmur, no edema (occasional irregular beat) Gastrointestinal (Abdomen): normal bowel sounds, soft, nontender, no hepatosplenomegaly Musculoskeletal: Head/Neck/Chest: normocephalic, head atraumatic and neck supple Extremities: extremities normal to inspection and + abnormal strength (generalized weakness) Skin: no rashes, warm and dry Neurologic: CN's II-XI intact bilaterally, moves all extremities, awake and + confused; no focal motor deficits Psychiatric: Orientation: alert, oriented to person, oriented to place and cooperative; + not oriented to time Results & Data Results & Data ([facility]) Vital Signs (Past 12 Hours) Vital Signs Temp Pulse Pulse Resp BP Pulse Ox 02/02/20 07:42 36.5 C 85 20 110/63 94 02/02/20 04:40 36.5 C 83 16 101/64 93 02/02/20 01:23 95 02/01/20 22:44 37.2 C 90 16 100/63 91 Laboratory Results Laboratory Results - last 24 hr 02/01/20 02/01/20 02/01/20 12:09 14:25 15:56 POC Hgb 11.9 L POC Hct 35 L Sample Site R Radial POC pH 7.47 H POC pCO2 28 L POC pO2 157 H POC HCO3 21 POC Total CO2 21 L POC Base Excess -3.0 ABG pH (Temp Correct) 7.484 H ABG pCO2 (Temp Corrct 27 L POC ABG pO2 at Pt Temp 151 POC ABG O2 Sat 100.0 H Antony Test Pass O2 Delivery Device BIPAP POC O2 Rate 12 POC FiO2 100 IPAP 10 POC Sodium 139 Sodium POC Potassium 4.1 Potassium Chloride Carbon Dioxide Anion Gap BUN Creatinine Est Cr Clr Drug Dosing Est GFR ( Amer) Est GFR (Non-Af Amer) BUN/Creatinine Ratio Glucose POC Glucose 117 H 112 H Calcium Phosphorus Magnesium COVID-19 Eval Order SARS-CoV-2, RNA, NAAT 02/01/20 02/02/20 02/02/20 20:47 00:37 04:07 POC Hgb POC Hct Sample Site POC pH POC pCO2 POC pO2 POC HCO3 POC Total CO2 POC Base Excess ABG pH (Temp Correct) ABG pCO2 (Temp Corrct POC ABG pO2 at Pt Temp POC ABG O2 Sat Antony Test O2 Delivery Device POC O2 Rate POC FiO2 IPAP POC Sodium Sodium POC Potassium Potassium Chloride Carbon Dioxide Anion Gap BUN Creatinine Est Cr Clr Drug Dosing Est GFR ( Amer) Est GFR (Non-Af Amer) BUN/Creatinine Ratio Glucose POC Glucose 83 84 83 Calcium Phosphorus Magnesium COVID-19 Eval Order SARS-CoV-2, RNA, NAAT 02/02/20 02/02/20 02/02/20 05:18 07:51 08:55 POC Hgb POC Hct Sample Site POC pH POC pCO2 POC pO2 POC HCO3 POC Total CO2 POC Base Excess ABG pH (Temp Correct) ABG pCO2 (Temp Corrct POC ABG pO2 at Pt Temp POC ABG O2 Sat Antony Test O2 Delivery Device POC O2 Rate POC FiO2 IPAP POC Sodium Sodium 143 POC Potassium Potassium 3.8 Chloride 111 H Carbon Dioxide 25 Anion Gap 7.0 BUN 38 H Creatinine 1.27 Est Cr Clr Drug Dosing 43.6 Est GFR ( Amer) 58.5 Est GFR (Non-Af Amer) 50.5 BUN/Creatinine Ratio 29.8 H Glucose 88 POC Glucose 83 Calcium 8.3 L Phosphorus 4.5 Magnesium 2.2 COVID-19 Eval [facility] SARS-CoV-2, RNA, NAAT 02/02/20 08:55 POC Hgb POC Hct Sample Site POC pH POC pCO2 POC pO2 POC HCO3 POC Total CO2 POC Base Excess ABG pH (Temp Correct) ABG pCO2 (Temp Corrct POC ABG pO2 at Pt Temp POC ABG O2 Sat Antony Test O2 Delivery Device POC O2 Rate POC FiO2 IPAP POC Sodium Sodium POC Potassium Potassium Chloride Carbon Dioxide Anion Gap BUN Creatinine Est Cr Clr Drug Dosing Est GFR ( Amer) Est GFR (Non-Af Amer) BUN/Creatinine Ratio Glucose POC Glucose Calcium Phosphorus Magnesium COVID-19 Eval Order SARS-CoV-2, RNA, NAAT NEGATIVE Medications Administered Current Inpatient Medications Albuterol (Albuterol Hfa 8 Gm Inhaler) 2 puffs INH Q6H PRN PRN Reason: Cough Stop: 02/14/20 08:54 Dextrose (Dextrose 50% 50 Ml Syringe) 25 - 50 ml IV UD PRN; Protocol PRN Reason: Hypoglycemia Protocol Stop: 02/13/20 11:44 Enoxaparin Sodium (Enoxaparin 80 Mg/0.8 Ml Syr) 80 mg SQ Q12H DERICK Stop: 03/02/20 18:59 Last Admin: 02/02/20 08:01 Dose: 80 mg Documented by: Glucagon (Glucagon For Inj 1 Mg Vial) 1 mg IM UD PRN; Protocol PRN Reason: Hypoglycemia Protocol Stop: 02/13/20 11:44 Glucose (Glucose 40% Gel 15 Gm Tube) 15 - 30 gm PO UD PRN; Protocol PRN Reason: Hypoglycemia Protocol Stop: 02/13/20 11:44 Last Admin: 01/19/20 08:54 Dose: 15 gm Documented by: Glucose (Glucose 10 Tabs/Tube) 4 - 8 tabs PO UD PRN; Protocol PRN Reason: Hypoglycemia Protocol Stop: 02/13/20 11:44 Hydralazine HCl (Hydralazine Hcl 20 Mg/Ml Vial) 10 mg IV Q8H PRN PRN Reason: SBP>180 Stop: 02/13/20 20:55 Last Admin: 01/23/20 16:44 Dose: 10 mg Documented by: Insulin Aspart (Insulin Aspart 100 Units/Ml 3 Ml Pen) 0 units SC Q6 DERICK Stop: 03/03/20 11:59 Insulin Glargine (Insulin Glargine Solostar 100 Units/Ml 3 Ml Pen) 10 units SC Q12 DERICK Stop: 03/01/20 08:59 Last Admin: 02/01/20 21:29 Dose: Not Given Documented by: Metoprolol Tartrate (Metoprolol Tartrate 1 Mg/Ml Vial) 5 mg IV Q4 PRN PRN Reason: tachycardia Stop: 03/02/20 18:29 Miscellaneous (Carbohydrates For Hypoglycemia ) 15 - 30 gm PO UD PRN PRN Reason: Hypoglycemia Treatment Stop: 02/13/20 11:44 Last Admin: 01/19/20 08:45 Dose: 15 gm Documented by: Miscellaneous Information (Pharmacy Glycemic Mgmt Consult) 1 ea N/A UD PRN PRN Reason: Consult Stop: 02/11/20 19:57 Miscellaneous Information (Tpn/Ppn Consult Pharmacy) 1 ea N/A UD DERICK Stop: 03/01/20 13:49 Ondansetron HCl (Ondansetron Inj 2 Mg/Ml 2 Ml Vial) 4 mg IV Q6H PRN PRN Reason: Nausea Stop: 02/11/20 19:06 PG Care Time/CCT Total # of Minutes Spent Total Time Spent with Patient: Total time spent is greater than 50% in coordination of care (as documented) at patient's floor/unit and/or counseling patient: Coding Level of Care Code 51427 Subseq Hosp Care Lvl 3 Diagnoses Refeeding syndrome E87.8 Acute respiratory failure with hypoxemia J96.01 Atrial fibrillation I48.91 Goals of care, counseling/discussion Z71.89 Metabolic encephalopathy G93.41 Dysphagia R13.10 Pneumonia due to COVID-19 virus U07.1; J12.89 CKD (chronic kidney disease), stage III N18.3 Coronary artery disease I25.10 Coronary Disease-Associated Artery/Lesion type: [place] artery [place] vs. transplanted heart: [place] heart Associated angina: without angina Type 2 diabetes mellitus E11.22; N18.3 Diabetes mellitus halfway insulin use: without terminal clerk use Diabetes mellitus complication status: with kidney complications Diabetes mellitus complication detail: with chronic kidney disease Chronic kidney disease stage: stage 3 (moderate) Hypertension I10 Hypertension type: essential hypertension DVT prophylaxis Z29.9 (1) Coronary artery disease Coronary Disease-Associated Artery/Lesion type: [place] artery [place] vs. transplanted heart: [place] heart Associated angina: without angina Qualified Code(s): I25.10 - Atherosclerotic heart disease of [place] coronary artery without angina pectoris (2) Type 2 diabetes mellitus Diabetes mellitus terminal clerk insulin use: without halfway use Diabetes mellitus complication status: with kidney complications Diabetes mellitus complication detail: with chronic kidney disease Chronic kidney disease stage: stage 3 (moderate) Qualified Code(s): E11.22 - Type 2 diabetes mellitus with diabetic chronic kidney disease; N18.3 - Chronic kidney disease, stage 3 (moderate) (3) Hypertension Hypertension type: essential hypertension Qualified Code(s): I10 - Essential (primary) hypertension
--- NOTE | 2020-02-02 11:42 | Gastroenterology Progress Note ---
Date of Service February 02, 2020 Assessment & Plan (1) Inadequate oral intake: This is an 89 y/o male admitted with COVID-19 pneumonia, with delirium/encephalopathy and previously was unable/unwilling to have PO intake. GI consulted to consider PEG. Yesterday and moreso today, pt seems more alert and conversive, yet still confused. He is asking for a milkshake. When I reviewed his previous issues with willingness/ability to eat/swallow, he doesn't recall any difficulties and states he would like to try. - With him asking for food today, perhaps he has turned a corner with regard to his recovery; would suggest repeat speech eval/swallow study to better assess any potential progress he has made with regard to willingness/ability eat - Pt also getting repeat COVID testing as suggested as he recovers from this illness - Recommend ongoing nutrition input with regards to optimizing his feeding needs - Consider deferring PEG at this time until such re-evaluations can be completed - Would defer mgmt of his multiple comorbidities to hospitalist team Please call with any acute changes, questions or concerns. Please see addendum below with additional recommendation from my supervising physician. Admission and Anticipated Discharge Date Admission Date: January 12, 2020 Supervising Physician Co-Signing Physician Notes I saw and evaluated the patient. His mental status does appear much improved today and he is asking for food. Given this change in mental status perhaps it would be reasonable to proceed with a repeat swallowing evaluation to determine if the patient is able to feed himself normally now. He is thought to have a metabolic encephalopathy as result of Covid infection and a feeding tube had been requested as he was not taking oral nutrition. If the patient passes the following study then a feeding tube may not be necessary any longer. Should the patient not pass a swallowing study we will try to make arrangements for feeding tube placement. Subjective Pt seen in f/u poor oral intake in the setting of COVID pneumonia with delirium/encephalopathy. Last evening it appears he had an episode of a-fib, tachycardia and hypoxia of unclear etiology that has since resolved. He is having sinus tachycardia with PACs. This AM he is appearing more alert and conversive; he has no complaints but states he is hungry and asking for a milkshake. Labs are stable. Denies abd pain, n/v, fever, CP, SOB. He knows he is in a hospital but doesn't know which one; is not oriented to time or events; he does not recall issues related to poor oral intake. Review of Systems Review of Systems: All systems reviewed & are unremarkable except as noted in HPI & below Physical Exam Constitutional: well developed; no acute distress chronically ill Eyes: + anicteric sclerae Respiratory: normal respiratory effort Cardiovascular: Rate/Rhythm: + tachycardic with PACs Gastrointestinal (Abdomen): normal bowel sounds, soft, nontender, no hepatosplenomegaly Skin: no rashes, warm and dry Psychiatric: As per HPI Results & Data ([facility]) Vital Signs (Past 12 Hours) Vital Signs Temp Pulse Pulse Resp BP BP Pulse Ox 02/02/20 11:26 36.3 C L 104 H 20 95/50 L 89 L 02/02/20 07:42 36.5 C 85 20 110/63 94 02/02/20 04:40 36.5 C 83 16 101/64 93 02/02/20 01:23 95 Laboratory Results 02/02/20 02/02/20 02/02/20 Range/Units 08:55 08:55 07:51 POC Hgb (14.0-18.0) g/dl POC Hct (42-52) % Sample Site POC pH (7.35-7.45) POC pCO2 (35-46) mmHg POC pO2 (80-95) mmHg POC HCO3 (19-24) andrea/L POC Total CO2 (24-31) mmol/L POC Base Excess (-9-1.8) andrea/L ABG pH (Temp Correct) (7.35-7.45) ABG pCO2 (Temp Corrct (35-46) mmHg POC ABG pO2 at Pt Temp POC ABG O2 Sat (90-95) % Antony Test O2 Delivery Device POC O2 Rate POC FiO2 % IPAP POC Sodium (135-144) mmol/L Sodium (136-145) mmol/L POC Potassium (3.3-5.0) mmol/L Potassium (3.5-5.1) mmol/L Chloride (98-107) mmol/L Carbon Dioxide (21-32) mmol/L Anion Gap (3-11) BUN (7-18) mg/dl Creatinine (0.6-1.4) mg/dl Est Cr Clr Drug Dosing ml/min Est GFR ( Amer) Est GFR (Non-Af Amer) BUN/Creatinine Ratio (10-20) Glucose (70-99) mg/dl POC Glucose 83 (70-99) mg/dl Calcium (8.5-10.1) mg/dl Phosphorus (2.5-4.9) mg/dl Magnesium (1.8-2.4) mg/dl COVID-19 Eval Order Covid19 [facility] SARS-CoV-2, RNA, NAAT NEGATIVE (NEGATIVE) 02/02/20 02/02/20 02/02/20 Range/Units 05:18 04:07 00:37 POC Hgb (14.0-18.0) g/dl POC Hct (42-52) % Sample Site POC pH (7.35-7.45) POC pCO2 (35-46) mmHg POC pO2 (80-95) mmHg POC HCO3 (19-24) andrea/L POC Total CO2 (24-31) mmol/L POC Base Excess (-9-1.8) andrea/L ABG pH (Temp Correct) (7.35-7.45) ABG pCO2 (Temp Corrct (35-46) mmHg POC ABG pO2 at Pt Temp POC ABG O2 Sat (90-95) % Antony Test O2 Delivery Device POC O2 Rate POC FiO2 % IPAP POC Sodium (135-144) mmol/L Sodium 143 (136-145) mmol/L POC Potassium (3.3-5.0) mmol/L Potassium 3.8 (3.5-5.1) mmol/L Chloride 111 H (98-107) mmol/L Carbon Dioxide 25 (21-32) mmol/L Anion Gap 7.0 (3-11) BUN 38 H (7-18) mg/dl Creatinine 1.27 (0.6-1.4) mg/dl Est Cr Clr Drug Dosing 43.6 ml/min Est GFR ( Amer) 58.5 Est GFR (Non-Af Amer) 50.5 BUN/Creatinine Ratio 29.8 H (10-20) Glucose 88 (70-99) mg/dl POC Glucose 83 84 (70-99) mg/dl Calcium 8.3 L (8.5-10.1) mg/dl Phosphorus 4.5 (2.5-4.9) mg/dl Magnesium 2.2 (1.8-2.4) mg/dl COVID-19 Eval Order SARS-CoV-2, RNA, NAAT (NEGATIVE) 02/01/20 02/01/20 02/01/20 Range/Units 20:47 15:56 14:25 POC Hgb 11.9 L (14.0-18.0) g/dl POC Hct 35 L (42-52) % Sample Site R Radial POC pH 7.47 H (7.35-7.45) POC pCO2 28 L (35-46) mmHg POC pO2 157 H (80-95) mmHg POC HCO3 21 (19-24) andrea/L POC Total CO2 21 L (24-31) mmol/L POC Base Excess -3.0 (-9-1.8) andrea/L ABG pH (Temp Correct) 7.484 H (7.35-7.45) ABG pCO2 (Temp Corrct 27 L (35-46) mmHg POC ABG pO2 at Pt Temp 151 POC ABG O2 Sat 100.0 H (90-95) % Antony Test Pass O2 Delivery Device BIPAP POC O2 Rate 12 POC FiO2 100 % IPAP 10 POC Sodium 139 (135-144) mmol/L Sodium (136-145) mmol/L POC Potassium 4.1 (3.3-5.0) mmol/L Potassium (3.5-5.1) mmol/L Chloride (98-107) mmol/L Carbon Dioxide (21-32) mmol/L Anion Gap (3-11) BUN (7-18) mg/dl Creatinine (0.6-1.4) mg/dl Est Cr Clr Drug Dosing ml/min Est GFR ( Amer) Est GFR (Non-Af Amer) BUN/Creatinine Ratio (10-20) Glucose (70-99) mg/dl POC Glucose 83 112 H (70-99) mg/dl Calcium (8.5-10.1) mg/dl Phosphorus (2.5-4.9) mg/dl Magnesium (1.8-2.4) mg/dl COVID-19 Eval Order SARS-CoV-2, RNA, NAAT (NEGATIVE) 02/01/20 Range/Units 12:09 POC Hgb (14.0-18.0) g/dl POC Hct (42-52) % Sample Site POC pH (7.35-7.45) POC pCO2 (35-46) mmHg POC pO2 (80-95) mmHg POC HCO3 (19-24) andrea/L POC Total CO2 (24-31) mmol/L POC Base Excess (-9-1.8) andrea/L ABG pH (Temp Correct) (7.35-7.45) ABG pCO2 (Temp Corrct (35-46) mmHg POC ABG pO2 at Pt Temp POC ABG O2 Sat (90-95) % Antony Test O2 Delivery Device POC O2 Rate POC FiO2 % IPAP POC Sodium (135-144) mmol/L Sodium (136-145) mmol/L POC Potassium (3.3-5.0) mmol/L Potassium (3.5-5.1) mmol/L Chloride (98-107) mmol/L Carbon Dioxide (21-32) mmol/L Anion Gap (3-11) BUN (7-18) mg/dl Creatinine (0.6-1.4) mg/dl Est Cr Clr Drug Dosing ml/min Est GFR ( Amer) Est GFR (Non-Af Amer) BUN/Creatinine Ratio (10-20) Glucose (70-99) mg/dl POC Glucose 117 H (70-99) mg/dl Calcium (8.5-10.1) mg/dl Phosphorus (2.5-4.9) mg/dl Magnesium (1.8-2.4) mg/dl COVID-19 Eval Order SARS-CoV-2, RNA, NAAT (NEGATIVE)
[2020-02-03] MEDS: INSULIN ASPART 100 UNITS/ML 3 ML PEN SC SCH ×4 (00:24→18:31)
[2020-02-03] MEDS: ENOXAPARIN 80 MG/0.8 ML SYR SQ SCH ×2 (06:02→20:20)
[2020-02-03 08:10] LABS: Hematocrit (blood only) 35.4 % (42-52); Hemoglobin 11.3 g/dL (14.0-18.0); Mean Corpuscular Hemoglobin 31.3 pg (25-34); Mean Corpuscular Hgb Conc 31.9 g/dL (32-36); Mean Corpuscular Volume 98.1 fL (80-100); Mean Platelet Volume 10.2 fL (7.4-10.4); Platelet Count 294 K/uL (130-400); RDW Coefficient of Variation 14.5 % (11.5-14.5); Red Blood Count 3.61 M/uL (4.7-6.1)
[2020-02-03 08:49] LABS: BUN Creatinine Ratio 33.8 (10-20); Calcium 8.9 mg/dl (8.5-10.1); Creatinine Clr Calc Pharmacy 42.6 ml/min; Est GFR (African American) 56.9; Est GFR (Non-African American) 49.1; Potassium 4.5 mmol/L (3.5-5.1)
--- NOTE | 2020-02-03 09:00 | Anesthesiology Consultation ---
Date of Service February 03, 2020 Assessment & Plan (1) Encounter for pre-operative examination: Chart Review Chart Review: Acceptable Risk for Surgery and Patient NOT seen in Pre Admission Testing Patient with recent covid diagnosis 01/12/2020. Recently tested negative and currently patient is off of covid precautions/isolation. Got full report from patient's nurse. He is appropriately NPO. A fib but controlled rate. No supplemental oxygen currently. Unable to fully consent for himself so will speak to patient's for consent. Will take patient directly into procedure room and recovery there as an added precaution given his recent covid diagnosis. update: pt was given lovenox this AM so procedure will be postponed Consults Requested none History Surgery Operation Date: 02/02/20 16:15 Proposed Procedures p Esophagogastroduodenoscopy Dr Javon Alejandro, Operation Date: 02/03/20 16:00 Proposed Procedures p Esophagogastroduodenoscopy Dr Javon Alejandro, DO s Peg Tube Placement Dr Javon Alejandro, Height/Weight Height: 5 ft 11 in Weight: 75.3 kg Allergies Allergy/AdvReac Type Severity Reaction Status Date / Time No Known Drug Allergies Allergy Verified 01/12/20 14:39 Medications Home Medications Medication Instructions Recorded Confirmed Last Taken aspirin 81 mg tablet,delayed 81 mg PO QAM 03/12/18 01/12/20 01/08/20 release clonidine HCl 0.1 mg tablet 0.1 mg PO DAILY PRN tab 11/04/18 01/12/20 Unknown pantoprazole 40 mg tablet,delayed 40 mg PO BID #180 tab 02/24/19 01/12/20 01/08/20 release carvedilol 25 mg tablet 25 mg PO BID #180 tab 05/06/19 01/12/20 01/08/20 metformin 1,000 mg tablet 1,000 mg PO BID #180 tab 05/17/19 01/12/20 01/08/20 atorvastatin 80 mg tablet 80 mg PO HS #90 tab 06/21/19 01/12/20 01/07/20 glimepiride 4 mg tablet 4 mg PO BID #180 tab 08/04/19 01/12/20 01/08/20 Januvia 25 mg PO HS 01/08/20 01/12/20 01/07/20 ondansetron HCl [Zofran] 4 mg PO Q8H PRN 5 Days #20 tab 01/09/20 01/12/20 Unknown Active Medications Generic Name Dose Route Start Last Admin Trade Name Johnq PRN Reason Stop Dose Admin Enoxaparin Sodium 80 mg 02/01/20 19:00 02/03/20 06:02 Enoxaparin 80 Mg/0.8 Ml Syr SQ 03/02/20 18:59 80 mg Q12H DERICK Administration Glucose 15 - 30 gm 01/14/20 11:45 01/19/20 08:54 Glucose 40% Gel 15 Gm Tube PO 02/13/20 11:44 15 gm UD PRN Administration Hypoglycemia Protocol Protocol Hydralazine HCl 10 mg 01/14/20 20:56 01/23/20 16:44 Hydralazine Hcl 20 Mg/Ml Vial IV 02/13/20 20:55 10 mg Q8H PRN Administration SBP>180 Insulin Aspart 0 units 02/02/20 12:00 02/03/20 06:07 Insulin Aspart 100 Units/Ml 3 Ml Pen SC 03/03/20 11:59 Not Given Q6 DERICK Miscellaneous 15 - 30 gm 01/14/20 11:45 01/19/20 08:45 Carbohydrates For Hypoglycemia PO 02/13/20 11:44 15 gm UD PRN Administration Hypoglycemia Treatment Ondansetron HCl 4 mg 01/12/20 19:07 02/02/20 22:25 Ondansetron Inj 2 Mg/Ml 2 Ml Vial IV 02/11/20 19:06 4 mg Q6H PRN Administration Nausea Past Medical History Medical History (Updated 02/03/20 @ 09:50 by Adrian Wolf MD) Actinic keratosis Anaplasmosis Atrial premature complex Benign localized prostatic hyperplasia with lower urinary tract symptoms (LUTS) BMI 29.0-29.9,adult CAD (coronary artery disease) Chews tobacco regularly CKD (chronic kidney disease), stage III Constipation Depression Diabetes mellitus Diabetic nephropathy Diabetic peripheral neuropathy [place] lesion of stomach Erythematous papules of skin Gastritis GERD (gastroesophageal reflux disease) Helicobacter pylori ab+ (10/27/13) Hiatal hernia History of SCC (squamous cell carcinoma) of skin Hypertension Rhabdomyolysis SI joint arthritis Trochanteric bursitis Type 2 diabetes mellitus Unilateral primary osteoarthritis, left hip Urinary hesitancy Visual impairment Vitamin D deficiency Past Family History Family History Unknown Diabetes Coronary heart disease Father Prostate cancer Past Surgical History Surgical History History of appendectomy History of colonoscopy History of transurethral resection of prostate cath June 2018: 2 stents in LAD. Repeat cath Oct 2018, stent PDA. Past Anesthesia History No Hx of Anesthesia Complications and No Family Hx of Anesthesia Complications History of PONV No Hx of PONV and No Hx of Motion Sickness Social History Smoking Status: Never smoker tobacco type: smokeless tobacco Do You Dip or Chew Tobacco: Yes Hx Alcohol Use: No Hx Substance Use: No substance use type: does not use Physical Exam Vital Signs Last Vital Signs Temp 36.4 C L 02/03/20 03:14 Pulse 79 02/03/20 03:14 Resp 17 02/03/20 03:14 BP 119/70 02/03/20 03:14 Pulse Ox 95 02/03/20 03:14 Testing Laboratory Results 02/03/20 07:45 02/03/20 07:45 PT 11.7 Seconds (9.0-12.0) 01/12/20 13:22 INR 1.1 (0.9-1.1) 01/12/20 13:22 APTT 33.2 Seconds (21.0-31.0) H 01/12/20 13:22 Urine Color Dark Yellow 01/12/20 18:26 Urine Appearance Cloudy (Clear) A 01/12/20 18:26 Urine pH 5.0 (4.5-7.5) 01/12/20 18:26 Ur Specific [place] 1.023 (1.000-1.030) 01/12/20 18:26 Urine Protein 3+ (Negative) H 01/12/20 18:26 Urine Glucose (UA) 2+ (Negative) H 01/12/20 18:26 Urine Ketones Trace (Negative) H 01/12/20 18:26 Urine Nitrite Negative (Negative) 01/12/20 18:26 Ur Leukocyte Esterase Negative (Negative) 01/12/20 18:26 Urine WBC (Auto) 1-5 /hpf (0-5) 01/12/20 18:26 Urine RBC (Auto) 0-4 /hpf (0-4) 01/12/20 18:26 U Hyaline Cast (Auto) 1-5 /lpf (0-5) 01/12/20 18:26 U Epithel Cells (Auto) 20-30 /lpf (0-5) H 01/12/20 18:26 Urine Bacteria (Auto) Negative (Negative) 01/12/20 18:26 Blood Type AB Positive 01/12/20 16:30 Antibody Screen NEGATIVE 01/12/20 16:30 01/12/20 13:22 Aerobic Blood Culture - Final Blood No growth in Aerobic bottle after 5 days. Anaerobic Blood Culture - Final No growth in Anaerobic bottle after 5 days. 01/12/20 13:22 Aerobic Blood Culture - Final Blood No growth in Aerobic bottle after 5 days. Anaerobic Blood Culture - Final No growth in Anaerobic bottle after 5 days. 01/12/20 18:26 Urine Culture - Final Urine,Clean Catch More than three types of organisms present, all moderate counts mixed probable skin sam. No further identifications or sensitivities to follow. 02/03/20 02/02/20 06:06 23:53 POC Glucose 125 H 128 H Electrocardiogram Date: 02/01/20 DICTATED BY: Misael Munson MD Test Reason : Blood Pressure : / mmHG Vent. Rate : 114 BPM Atrial Rate : 000 BPM P-R Int : 000 ms QRS Dur : 118 ms QT Int : 350 ms P-R-T Axes : 000 -77 006 degrees QTc Int : 482 ms Poor data quality, interpretation may be adversely affected Atrial fibrillation with rapid ventricular response Left anterior fascicular block Right bundle branch block Bifascicular block Septal infarct (cited on or before 01-FEB-2020) Abnormal ECG When compared with ECG of 12-JAN-2020 13:10, Atrial fibrillation has replaced Sinus rhythm T wave inversion no longer evident in Anterior leads Confirmed by Misael Munson ([id number]) on 02/01/2020 4:45:13 PM Chest X-Ray Date: 02/01/20 XR chest 1V portable CLINICAL HISTORY: hypoxia COMPARISON STUDY: 01/31/2020 FINDINGS: The heart remains enlarged. There are persistent bilateral pulmonary airspace opacities consistent with a multifocal pneumonia. There is no overt failure. There are no large pleural effusions.[ IMPRESSION: Persistent multifocal airspace opacities, consistent with a multifocal pneumonia Echocardiogram Date: 10/30/18 LVH. Mild AR. No . EF 55-60%
[2020-02-03] MEDS ORDERED: LIDOCAINE 2% 2 ML VIAL/AMP(20MG/ML) INFIL ONE (09:23)
[2020-02-03] MEDS ORDERED: PROPOFOL IV EMULSION 10 MG/ML 20 ML VIAL IV ONE (09:23)
[2020-02-03] MEDS ORDERED: DEXTROSE 5% 1,000 ML IV SCH (09:30)
--- NOTE | 2020-02-03 09:32 | History & Physical Bridge Note ---
Date of Service February 03, 2020 History & Physical Bridge Note I have examined the patient, reviewed the History & Physical and in the interval since the performance of the History & Physical I have noted the following changes of clinical significance: no changes noted. The patient underwent a speech pathology evaluation yesterday and was found to have failed his swallow study. Due to his persistent ental status changes feeding tube has been requested by the internal medicine service for long-term management of his inability to take oral intake. I was able to contact the patient's who has provided consent for her over the phone. She also provided consent for anesthesia services as well. We did discuss the risks which include bleeding, infection, perforation, pain, fistula formation and persistent leakage after feeding tube removal. We even discussed the possibility of a buried bumper syndrome
--- NOTE | 2020-02-03 09:32 | Hospitalist Progress Note ---
Date of Service February 03, 2020 Assessment & Plan (1) Refeeding syndrome: occurred afternoon on 01/31 was on PPN, signs/symptoms included sudden dyspnea, hypoxia, atrial fibrillation gave Lasix 40mg IV, stopped PPN, moved to PCU he is now completely stable for two days plan to hold PPN, try to get PEG for enteral access today once we can feed him, will take it slowly, monitor on PCU for any sudden decompensation (2) Acute respiratory failure with hypoxemia: sudden desaturation in afternoon on 01/31 with hypoxemia requiring 15L oxymask and BIPAP briefly CXR only showed persistent infiltrates BNP was not markedly elevated he was also in afib with RVR at the time most likely explanation was refeeding syndrome as he was getting PPN for about 24 hours prior to this happening refeeding syndrome can cause hypoxia, volume overload, arrhythmias moved to PCU, he has been stable for two days, on room air this morning, no distress did get Lasix 40mg IV yesterday, appears euvolemic this morning will try to get PEG tube today, repeat rapid COVID was negative (3) Atrial fibrillation: new diagnosis on 01/31 on monitor today he is sinus with PACs and some brief runs of afib rates in 70's without rate cont keep on PCU to monitor rate/rhythm (4) Goals of care, counseling/discussion: long discussion with family regarding goals of care on 01/29 and 01/30 and 02/01 they want him to get nutrition at this point, short term goal of improving nutrition to help improve strength they are on board with consult for GI for PEG tube as he pulled out NG tube twice they want him to come home but also want him to get stronger I discussed that those two likely would not go hand in hand, he would need to go to SNF for rehab if they want him stronger the patient's only stated goal is that he wants to go home focus on getting PEG tube today, will start slowly with tube feeds (5) Metabolic encephalopathy: Due to COVID 19, delirium - Continue treatment with redirection, supportive care, he is much improved overall discussed other option of PEG tube with Sadie on 01/28 and 01/29 family wants PEG tube, will try to get one placed today certainly his mental status is improving, he is calmer, not pulling out lines, no longer has mitts he is more responsive today is probably the closest to normal I have seen him, he is talking a lot, says he just wants to go home with his [place] he is asking for food and says he is hungry we discussed PEG tube plans for today, reasoning behind it, he nodded his head in agreement with the plan (6) Dysphagia: - Completed Diflucan 100mg IV & Nystatin QID mouth swab, mouth looks much better, still very dry - BOILER FITTER evaluated on 01/26. He held food and water in his mouth, but could not transfer posteriorly or swallow he had the same findings on 01/30, coughed back up applesauce and water one last evaluation with speech therapy on 02/01, he wanted a vanilla milkshake he was unable to transfer food / liquid bolus to back of throat very sad, he sad he was trying to swallow, he just can't do it keep NPO as high aspiration risk (7) Pneumonia due to COVID-19 virus: Chest x-ray on admission had progressed significantly since his previous hospital stay a few days prior. - on room air today, no distress - Was not a good candidate for remdesivir -- CrCl is nearly <30, and given he is 10+ days out from illness when he presented. repeat rapid COVID is NEGATIVE (8) CKD (chronic kidney disease), stage III: Baseline CrCL 30s/40s. - Cr is stable today BUN up a little, start on gentle D5W at 60mL/hr (9) Coronary artery disease: No evidence of ACS, has a history of stents placed in 2019. - Cont Coreg, ASA, statin (10) Type 2 diabetes mellitus: Pharmacy glycemic consult placed. - Holding oral agents - Continue insulin as per pharmacy -> Sugars in last 24 hours tolerable. (11) Hypertension: BP is 119/79 unable to take medications PO (12) DVT prophylaxis: Lovenox 30mg BID -- higher dose due to increased risk of VTE in setting of COVID-19 (13) Hypernatremia: due to poor volume intake start on D5W today, will transition to tube feeds once PEG tube in place Admission and Anticipated Discharge Date Admission Date: January 12, 2020 Subjective patient laying in bed, no distress at all, says he is hungry and thirsty he is oriented to person, place he understands that we plan to get a PEG tube later today, he understands that he needs a reliable route for nutrition no fever/chills, minimal cough, no dyspnea, no chest pain labs show Na and BUN going up a little, will start him on some D5W at 60mL/hr, want to be cautious with IV volume shifts spoke with PA with GI, plan for PEG today, they will call family for consent rapid repeat COVID was negative Review of Systems Review of Systems: All systems reviewed & are unremarkable except as noted in Subjective Physical Exam Constitutional: well developed, well nourished and + frail appearing; no acute distress ENMT: external ear and nose normal, oropharynx normal (thrush resolved) Mouth: + dry oral mucous membranes Neck: trachea midline, no thyromegaly Respiratory: normal respiratory effort; no respiratory distress and no cough Auscultation: lungs clear to auscultation bilaterally Cardiovascular: RRR, no murmur, no edema (occasional irregular beat) Heart Sounds: normal S1 and normal S2; no murmur Extremities: normal capillary refill; no edema Gastrointestinal (Abdomen): normal bowel sounds, soft, nontender, no hepatosplenomegaly Musculoskeletal: Head/Neck/Chest: normocephalic, head atraumatic and neck supple Extremities: extremities normal to inspection and + abnormal strength (generalized weakness) Skin: no rashes, warm and dry Neurologic: CN's II-XI intact bilaterally, moves all extremities and awake; no focal motor deficits Psychiatric: Orientation: alert, oriented to person, oriented to place and cooperative; + not oriented to time Results & Data Results & Data ([facility]) Vital Signs (Past 12 Hours) Vital Signs Temp Pulse Pulse Resp BP Pulse Ox 02/03/20 03:14 36.4 C L 79 17 119/70 95 02/02/20 23:43 37.0 C 95 H 17 114/65 95 Laboratory Results Laboratory Results - last 24 hr 02/02/20 02/02/20 02/02/20 08:55 12:00 18:10 WBC RBC Hgb Hct MCV MCH MCHC RDW Std Deviation RDW Coeff of Allie Plt Count MPV Sodium Potassium Chloride Carbon Dioxide Anion Gap BUN Creatinine Est Cr Clr Drug Dosing Est GFR ( Amer) Est GFR (Non-Af Amer) BUN/Creatinine Ratio Glucose POC Glucose 127 H 132 H Calcium SARS-CoV-2, RNA, NAAT NEGATIVE 02/02/20 02/03/20 02/03/20 23:53 06:06 07:45 WBC 6.30 RBC 3.61 L Hgb 11.3 L Hct 35.4 L MCV 98.1 MCH 31.3 MCHC 31.9 L RDW Std Deviation 52.0 H RDW Coeff of Allie 14.5 Plt Count 294 MPV 10.2 Sodium Potassium Chloride Carbon Dioxide Anion Gap BUN Creatinine Est Cr Clr Drug Dosing Est GFR ( Amer) Est GFR (Non-Af Amer) BUN/Creatinine Ratio Glucose POC Glucose 128 H 125 H Calcium SARS-CoV-2, RNA, NAAT 02/03/20 07:45 WBC RBC Hgb Hct MCV MCH MCHC RDW Std Deviation RDW Coeff of Allie Plt Count MPV Sodium 146 H Potassium 4.5 D Chloride 113 H Carbon Dioxide 21 Anion Gap 12.0 H BUN 44 H Creatinine 1.30 Est Cr Clr Drug Dosing 42.6 Est GFR ( Amer) 56.9 Est GFR (Non-Af Amer) 49.1 BUN/Creatinine Ratio 33.8 H Glucose 130 H POC Glucose Calcium 8.9 SARS-CoV-2, RNA, NAAT Medications Administered Current Inpatient Medications Albuterol (Albuterol Hfa 8 Gm Inhaler) 2 puffs INH Q6H PRN PRN Reason: Cough Stop: 02/14/20 08:54 Dextrose (Dextrose 50% 50 Ml Syringe) 25 - 50 ml IV UD PRN; Protocol PRN Reason: Hypoglycemia Protocol Stop: 02/13/20 11:44 Enoxaparin Sodium (Enoxaparin 80 Mg/0.8 Ml Syr) 80 mg SQ Q12H DERICK Stop: 03/02/20 18:59 Last Admin: 02/03/20 06:02 Dose: 80 mg Documented by: Glucagon (Glucagon For Inj 1 Mg Vial) 1 mg IM UD PRN; Protocol PRN Reason: Hypoglycemia Protocol Stop: 02/13/20 11:44 Glucose (Glucose 40% Gel 15 Gm Tube) 15 - 30 gm PO UD PRN; Protocol PRN Reason: Hypoglycemia Protocol Stop: 02/13/20 11:44 Last Admin: 01/19/20 08:54 Dose: 15 gm Documented by: Glucose (Glucose 10 Tabs/Tube) 4 - 8 tabs PO UD PRN; Protocol PRN Reason: Hypoglycemia Protocol Stop: 02/13/20 11:44 Hydralazine HCl (Hydralazine Hcl 20 Mg/Ml Vial) 10 mg IV Q8H PRN PRN Reason: SBP>180 Stop: 02/13/20 20:55 Last Admin: 01/23/20 16:44 Dose: 10 mg Documented by: Dextrose (D5w) 1,000 mls @ 60 mls/hr IV .[id number] [facility] Stop: 03/04/20 09:29 Insulin Aspart (Insulin Aspart 100 Units/Ml 3 Ml Pen) 0 units SC Q6 DERICK Stop: 03/03/20 11:59 Last Admin: 02/03/20 06:07 Dose: Not Given Documented by: Metoprolol Tartrate (Metoprolol Tartrate 1 Mg/Ml Vial) 5 mg IV Q4 PRN PRN Reason: tachycardia Stop: 03/02/20 18:29 Miscellaneous (Carbohydrates For Hypoglycemia ) 15 - 30 gm PO UD PRN PRN Reason: Hypoglycemia Treatment Stop: 02/13/20 11:44 Last Admin: 01/19/20 08:45 Dose: 15 gm Documented by: Miscellaneous Information (Pharmacy Glycemic Mgmt Consult) 1 ea N/A UD PRN PRN Reason: Consult Stop: 02/11/20 19:57 Miscellaneous Information (Tpn/Ppn Consult Pharmacy) 1 ea N/A UD DERICK Stop: 03/01/20 13:49 Ondansetron HCl (Ondansetron Inj 2 Mg/Ml 2 Ml Vial) 4 mg IV Q6H PRN PRN Reason: Nausea Stop: 02/11/20 19:06 Last Admin: 02/02/20 22:25 Dose: 4 mg Documented by: PG Care Time/CCT Total # of Minutes Spent Total Time Spent with Patient: Total time spent is greater than 50% in coordination of care (as documented) at patient's floor/unit and/or counseling patient: Coding Level of Care Code 60201 Subseq Hosp Care Lvl 3 Diagnoses Refeeding syndrome E87.8 Acute respiratory failure with hypoxemia J96.01 Atrial fibrillation I48.91 Goals of care, counseling/discussion Z71.89 Metabolic encephalopathy G93.41 Dysphagia R13.10 Pneumonia due to COVID-19 virus U07.1; J12.89 CKD (chronic kidney disease), stage III N18.3 Coronary artery disease I25.10 Coronary Disease-Associated Artery/Lesion type: [place] artery [place] vs. transplanted heart: [place] heart Associated angina: without angina Type 2 diabetes mellitus E11.22; N18.3 Diabetes mellitus bed bug exterminator insulin use: without bed bug exterminator use Diabetes mellitus complication status: with kidney complications Diabetes mellitus complication detail: with chronic kidney disease Chronic kidney disease stage: stage 3 (moderate) Hypertension I10 Hypertension type: essential hypertension DVT prophylaxis Z29.9 Hypernatremia E87.0 (1) Coronary artery disease Coronary Disease-Associated Artery/Lesion type: [place] artery [place] vs. transplanted heart: [place] heart Associated angina: without angina Qualified Code(s): I25.10 - Atherosclerotic heart disease of [place] coronary artery without angina pectoris (2) Type 2 diabetes mellitus Diabetes mellitus alf insulin use: without alf use Diabetes mellitus complication status: with kidney complications Diabetes mellitus complication detail: with chronic kidney disease Chronic kidney disease stage: stage 3 (moderate) Qualified Code(s): E11.22 - Type 2 diabetes mellitus with diabetic chronic kidney disease; N18.3 - Chronic kidney disease, stage 3 (moderate) (3) Hypertension Hypertension type: essential hypertension Qualified Code(s): I10 - Essential (primary) hypertension
--- NOTE | 2020-02-03 09:42 | Communication Note ---
Date of Service: February 03, 2020 Unfortunately the patient was given Lovenox this morning. As he is on 80 mg I would recommend against doing a PEG tube today due to the potential for bleeding. His PEG tube will need to be rescheduled for Friday, stop Lovenox the night before, last dose can be given on Friday hold the Friday evening and Friday morning dose. Please call with any questions or concerns over the weekend
[2020-02-03] MEDS: THIAMINE HCL 100 MG in SYRINGE 9 ML IV SCH (13:48)
[2020-02-03] MEDS ORDERED: Custom Peripheral Pn 1,500 ML in TPN BAG 0 ML IV SCH (16:00)
[2020-02-03] MEDS ORDERED: INSULIN GLARGINE SOLOSTAR 100 UNITS/ML 3 ML PEN SC SCH (21:00)
[2020-02-04] MEDS: INSULIN ASPART 100 UNITS/ML 3 ML PEN SC SCH ×4 (00:14→18:01)
[2020-02-04] MEDS: INSULIN GLARGINE SOLOSTAR 100 UNITS/ML 3 ML PEN SC SCH ×3 (00:14→21:06)
[2020-02-04] MEDS ORDERED: LORazepam 0.5 MG/1 ML VIAL IV STA (06:46)
[2020-02-04] MEDS: THIAMINE HCL 100 MG in SYRINGE 9 ML IV SCH (07:46)
[2020-02-04] MEDS: ENOXAPARIN 80 MG/0.8 ML SYR SQ SCH ×2 (08:10→18:04)
[2020-02-04 09:16] LABS: BUN Creatinine Ratio 31.8 (10-20); Calcium 8.9 mg/dl (8.5-10.1); Creatinine Clr Calc Pharmacy 48.6 ml/min; Est GFR (African American) 66.6; Est GFR (Non-African American) 57.5; Phosphorus 2.6 mg/dl (2.5-4.9); Potassium 3.8 mmol/L (3.5-5.1)
--- NOTE | 2020-02-04 11:34 | Hospitalist Progress Note ---
Date of Service February 04, 2020 Assessment & Plan (1) Dysphagia: - Completed Diflucan 100mg IV & Nystatin QID mouth swab, mouth looks much better, still very dry - [employer] evaluated on 01/26. He held food and water in his mouth, but could not transfer posteriorly or swallow he had the same findings on 01/30, coughed back up applesauce and water one last evaluation with speech therapy on 02/01, he wanted a vanilla milkshake he was unable to transfer food / liquid bolus to back of throat very sad, he sad he was trying to swallow, he just can't do it keep NPO as high aspiration risk plan for PEG tube Tuesday 02/06 with Ivory TAVARES, Lovenox will be stopped 02/05 at noon (2) Refeeding syndrome: occurred afternoon on 01/31 was on PPN, signs/symptoms included sudden dyspnea, hypoxia, atrial fibrillation gave Lasix 40mg IV, stopped PPN, moved to PCU he is now completely stable for three days resumed PPN on 02/02 at lower rate of 60mL/hr and lower total volume daily of 1500mL currently tolerating feeds well phosphorus is normal (3) Acute respiratory failure with hypoxemia: sudden desaturation in afternoon on 01/31 with hypoxemia requiring 15L oxymask and BIPAP briefly CXR only showed persistent infiltrates BNP was not markedly elevated he was also in afib with RVR at the time most likely explanation was refeeding syndrome as he was getting PPN for about 24 hours prior to this happening refeeding syndrome can cause hypoxia, volume overload, arrhythmias moved to PCU, he has been stable for three days, on room air did get Lasix 40mg IV 02/01, appears euvolemic this morning stable today, monitor closely getting PPN over the weekend keep on PCU to monitor for afib (4) Atrial fibrillation: new diagnosis on 01/31 on monitor past three days he is sinus with PACs and some brief runs of afib rates in 70's without rate cont keep on PCU to monitor rate/rhythm while getting PPN (5) Urinary retention: dennis pulled 02/02 since he was alert and communicating, getting OOB to chair he became agitated, swinging at nurses and staff on 02/02 and 02/03 straight cath for 600mL will place dennis catheter as he will likely continue to retain and will be a source of agitation can follow up with urology as outpatient, keep dennis on discharge (6) Goals of care, counseling/discussion: long discussion with family regarding goals of care on 01/29 and 01/30 and 02/01 they want him to get nutrition at this point, short term goal of improving nutrition to help improve strength they are on board with consult for GI for PEG tube as he pulled out NG tube twice they want him to come home but also want him to get stronger I discussed that those two likely would not go hand in hand, he would need to go to SNF for rehab if they want him stronger the patient's only stated goal is that he wants to go home focus on getting PEG tube Tuesday 02/06, PPN over the weekend (7) Metabolic encephalopathy: Due to COVID 19, delirium - Continue treatment with redirection, supportive care, he is much improved overall discussed other option of PEG tube with Sadie on 01/28 and 01/29 family wants PEG tube, will try to get one placed today certainly his mental status is improving, he is calmer, not pulling out lines, no longer has mitts he is more responsive 02/02 was probably the closest to normal I have seen him, he was talking a lot, says he just wants to go home with his [place] he is asking for food and says he is hungry we discussed PEG tube plans for today, reasoning behind it, he nodded his head in agreement with the plan he got agitated evening 02/02 due to urinary retention, needed Ativan to calm him down so that new IV could be placed and straight cath will place dennis to avoid further agitation try to avoid Ativan (8) Pneumonia due to COVID-19 virus: Chest x-ray on admission had progressed significantly since his previous hospital stay a few days prior. - on room air today, no distress - Was not a good candidate for remdesivir -- CrCl is nearly <30, and given he is 10+ days out from illness when he presented. repeat rapid COVID is NEGATIVE (9) CKD (chronic kidney disease), stage III: Baseline CrCL 30s/40s. - Cr is stable today BUN up a little, start on gentle D5W at 60mL/hr (10) Coronary artery disease: No evidence of ACS, has a history of stents placed in 2019. - Cont Coreg, ASA, statin (11) Type 2 diabetes mellitus: Pharmacy glycemic consult placed. - Holding oral agents - Continue insulin as per pharmacy -> Sugars in last 24 hours tolerable. (12) Hypertension: BP is 119/79 unable to take medications PO (13) Hypernatremia: due to poor volume intake on PPN now, monitor daily (14) DVT prophylaxis: Lovenox 1mg/kg BID due to afib will hold day prior to PEG Admission and Anticipated Discharge Date Admission Date: January 12, 2020 Subjective patient had a lot of agitation, swinging at nurses last night likely because when we pulled his dennis he could not urinate, he was bladder scanned for over 500mL he would not let RN get close to him to straight cath him, he pulled out his IV site he was given Ativan, new IV site placed, straight cathed for over 600mL told RN to place new dennis catheter as further urinary retention will lead to agitation labs today show stable Cr and electrolytes on PPN will call family with update Review of Systems Review of Systems: Unobtainable due to cognitive status (confused, somnolent after getting Ativan) Physical Exam Constitutional: well developed, well nourished and + frail appearing; no acute distress ENMT: external ear and nose normal, oropharynx normal (thrush resolved) Mouth: + dry oral mucous membranes Neck: trachea midline, no thyromegaly Respiratory: normal respiratory effort; no respiratory distress and no cough Auscultation: lungs clear to auscultation bilaterally Cardiovascular: RRR, no murmur, no edema (occasional irregular beat) Gastrointestinal (Abdomen): normal bowel sounds, soft, nontender, no hepatosplenomegaly Musculoskeletal: Head/Neck/Chest: normocephalic, head atraumatic and neck supple Extremities: extremities normal to inspection and + abnormal strength (generalized weakness) Skin: no rashes, warm and dry Neurologic: CN's II-XI intact bilaterally, moves all extremities and awake; no focal motor deficits Psychiatric: Orientation: + guarded; + not alert, + not oriented to person, + not oriented to place and + not oriented to time Results & Data Results & Data ([facility]) Vital Signs (Past 12 Hours) Vital Signs Temp Pulse Pulse Resp BP Pulse Ox 02/04/20 08:05 36.6 C 83 17 115/65 90 02/04/20 02:52 36.9 C 78 20 151/63 H 93 02/03/20 23:38 36.8 C 76 16 138/71 94 Laboratory Results Laboratory Results - last 24 hr 02/03/20 02/03/20 02/03/20 12:32 17:55 23:52 Sodium Potassium Chloride Carbon Dioxide Anion Gap BUN Creatinine Est Cr Clr Drug Dosing Est GFR ( Amer) Est GFR (Non-Af Amer) BUN/Creatinine Ratio Glucose POC Glucose 181 H 194 H 195 H Calcium Phosphorus Magnesium 02/04/20 02/04/20 06:16 08:08 Sodium 146 H Potassium 3.8 D Chloride 113 H Carbon Dioxide 27 Anion Gap 6.0 BUN 36 H Creatinine 1.14 Est Cr Clr Drug Dosing 48.6 Est GFR ( Amer) 66.6 Est GFR (Non-Af Amer) 57.5 BUN/Creatinine Ratio 31.8 H Glucose 220 H POC Glucose 209 H Calcium 8.9 Phosphorus 2.6 Magnesium 2.0 Medications Administered Current Inpatient Medications Albuterol (Albuterol Hfa 8 Gm Inhaler) 2 puffs INH Q6H PRN PRN Reason: Cough Stop: 02/14/20 08:54 Dextrose (Dextrose 50% 50 Ml Syringe) 25 - 50 ml IV UD PRN; Protocol PRN Reason: Hypoglycemia Protocol Stop: 02/13/20 11:44 Enoxaparin Sodium (Enoxaparin 80 Mg/0.8 Ml Syr) 80 mg SQ Q12H [facility] Stop: 02/06/20 12:00 Last Admin: 02/04/20 08:10 Dose: 80 mg Documented by: Glucagon (Glucagon For Inj 1 Mg Vial) 1 mg IM UD PRN; Protocol PRN Reason: Hypoglycemia Protocol Stop: 02/13/20 11:44 Glucose (Glucose 40% Gel 15 Gm Tube) 15 - 30 gm PO UD PRN; Protocol PRN Reason: Hypoglycemia Protocol Stop: 02/13/20 11:44 Last Admin: 01/19/20 08:54 Dose: 15 gm Documented by: Glucose (Glucose 10 Tabs/Tube) 4 - 8 tabs PO UD PRN; Protocol PRN Reason: Hypoglycemia Protocol Stop: 02/13/20 11:44 Hydralazine HCl (Hydralazine Hcl 20 Mg/Ml Vial) 10 mg IV Q8H PRN PRN Reason: SBP>180 Stop: 02/13/20 20:55 Last Admin: 01/23/20 16:44 Dose: 10 mg Documented by: Thiamine HCl 100 mg/ Syringe 10 mls @ 2 mls/min IV QAM [facility] Stop: 03/04/20 11:29 Last Admin: 02/04/20 07:46 Dose: 2 mls/min Documented by: Nutrition (Parenteral) 1,500 (ml/ TPN BAG) 1,500 mls @ 62.5 mls/hr IV .Q24H [facility]; Protocol Stop: 02/04/20 15:59 Last Admin: 02/03/20 16:59 Dose: 62.5 mls/hr Documented by: Nutrition (Parenteral) 1,500 (ml/ TPN BAG) 1,500 mls @ 62.5 mls/hr IV .Q24H [facility]; Protocol Stop: 02/05/20 15:59 Insulin Aspart (Insulin Aspart 100 Units/Ml 3 Ml Pen) 0 units SC Q6 [facility] Stop: 03/03/20 11:59 Last Admin: 02/04/20 06:18 Dose: 3 units Documented by: Insulin Glargine (Insulin Glargine Solostar 100 Units/Ml 3 Ml Pen) 0 units SC BID [facility]; Protocol Stop: 03/04/20 20:59 Last Admin: 02/04/20 07:43 Dose: 15 units Documented by: Metoprolol Tartrate (Metoprolol Tartrate 1 Mg/Ml Vial) 5 mg IV Q4 PRN PRN Reason: tachycardia Stop: 03/02/20 18:29 Miscellaneous (Carbohydrates For Hypoglycemia ) 15 - 30 gm PO UD PRN PRN Reason: Hypoglycemia Treatment Stop: 02/13/20 11:44 Last Admin: 01/19/20 08:45 Dose: 15 gm Documented by: Miscellaneous Information (Pharmacy Glycemic Mgmt Consult) 1 ea N/A UD PRN PRN Reason: Consult Stop: 02/11/20 19:57 Miscellaneous Information (Tpn/Ppn Consult Pharmacy) 1 ea N/A UD [facility] Stop: 03/01/20 13:49 Ondansetron HCl (Ondansetron Inj 2 Mg/Ml 2 Ml Vial) 4 mg IV Q6H PRN PRN Reason: Nausea Stop: 02/11/20 19:06 Last Admin: 02/02/20 22:25 Dose: 4 mg Documented by: PG Care Time/CCT Total # of Minutes Spent Total Time Spent with Patient: Total time spent is greater than 50% in coordination of care (as documented) at patient's floor/unit and/or counseling patient: Coding Level of Care Code 97601 Subseq Hosp Care Lvl 3 Diagnoses Dysphagia R13.10 Refeeding syndrome E87.8 Acute respiratory failure with hypoxemia J96.01 Atrial fibrillation I48.91 Urinary retention R33.9 Goals of care, counseling/discussion Z71.89 Metabolic encephalopathy G93.41 Pneumonia due to COVID-19 virus U07.1; J12.89 CKD (chronic kidney disease), stage III N18.3 Coronary artery disease I25.10 Coronary Disease-Associated Artery/Lesion type: [place] artery [place] vs. 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
--- NOTE | 2020-02-04 15:44 | Pharmacy Report ---
Pharmacy Glycemic Short Note 2 - Date of Service February 04, 2020 - Glycemic Short BSG Results (Last 24 hours): 02/03/20 02/03/20 02/04/20 17:55 23:52 06:16 Glucose POC Glucose 194 H 195 H 209 H 02/04/20 02/04/20 08:08 11:44 Glucose 220 H POC Glucose 218 H OUTPATIENT ANTIDIABETIC REGIMEN: * amaryl, metformin, januvia * HbA1c: 9.7% (11/29/19) ASSESSMENT: 02/02: * [place] received 14 units of insulin yesterday (10 units of basal and 4 units bolus) * His PPN was resumed yesterday evening. It contains 85 grams of dextrose. Insulin in PPN will be increased today for hyperglycemia. * Fasting BSG also elevated (partially due to continuous infusion of dextrose from PPN). Will slightly increase basal insulin. * 01/30 * BSGs did climb into the mid-200s with the initiation of dextrose containing IVFs yesterday * Patient has been refusing some BSG checks leading to omission of Novolog at lunchtime yesterday and omission of Lantus last evening * Given current BSG trajectory, ongoing IV dextrose admin, and omission of basal insulin - will begin a scheduled Novolog Q 4 hrs scale that will provide a portion of the "basal" insulin needs while also covering the carbs in IV dextrose 01/29 * Patient received total of 26 units of insulin yesterday - TFs continue to be on hold as NG tube out * Had held basal insulin yesterday - provider now starting IVFs with dextrose this afternoon. Plan to start basal tonight and add a scale if BSGs trend up * Spoke with nurse, patient refusing insulin check at lunch - will try again to check BSG later tonight 01/28 * Patient received total of 58 units of insulin yesterday, of which 25 were basal insulin * Fasting BSG elevated at 292 mg/dL - follow Lantus scale for this AM * Nurse notified pharmacy later this morning that patient pulled out NG tube ag ain / tube feeds stopped - d/c basal for HS PLAN FOR INPATIENT GLYCEMIC CONTROL: * Hold outpatient oral diabetes medications * Basal insulin * Lantus 15 units SQ qAM x 1, then resume per scale BID: * 0 units for BSG less than 110 mg/dL * 5 units for BSG 111 - 159 mg/dL * 10 units for BSG 160 or greater * Bolus insulin - increase * Novolog SQ Q 6 hrs * Goal range: 120 -160 mg/dL * Correction factor: tighten to 15 mg/dL/unit * Prandial coverage: 17 units of insulin added to PPN
[2020-02-04] MEDS ORDERED: Custom Peripheral Pn 1,500 ML in TPN BAG 0 ML IV SCH (16:00)
[2020-02-05] MEDS: INSULIN ASPART 100 UNITS/ML 3 ML PEN SC SCH ×4 (00:07→18:43)
[2020-02-05] MEDS: ENOXAPARIN 80 MG/0.8 ML SYR SQ SCH ×2 (08:00→21:00)
[2020-02-05] MEDS ORDERED: INSULIN GLARGINE SOLOSTAR 100 UNITS/ML 3 ML PEN SC SCH (09:00)
[2020-02-05] MEDS: THIAMINE HCL 100 MG in SYRINGE 9 ML IV SCH (09:33)
[2020-02-05 11:36] LABS: BUN Creatinine Ratio 25.5 (10-20); Calcium 8.7 mg/dl (8.5-10.1); Creatinine Clr Calc Pharmacy 54.9 ml/min; Est GFR (African American) 77.2; Est GFR (Non-African American) 66.6; Magnesium 2.2 mg/dl (1.8-2.4); Phosphorus 3.3 mg/dl (2.5-4.9); Potassium 4.1 mmol/L (3.5-5.1)
[2020-02-05 11:51] LABS: Hematocrit (blood only) 43.2 % (42-52); Hemoglobin 13.9 g/dL (14.0-18.0); Mean Corpuscular Hgb Conc 32.2 g/dL (32-36); Mean Corpuscular Volume 96.4 fL (80-100); Platelet Count 235 K/uL (130-400); RDW Coefficient of Variation 14.1 % (11.5-14.5); RDW Standard Deviation 49.7 fL (36.4-46.3); Red Blood Count 4.48 M/uL (4.7-6.1); White Blood Count 6.16 K/uL (4.8-10.8)
[2020-02-05] MEDS ORDERED: bisacodyL 10 MG SUPP PR STA (12:52)
--- NOTE | 2020-02-05 12:53 | Hospitalist Progress Note ---
Date of Service February 05, 2020 Assessment & Plan (1) Dysphagia: - Completed Diflucan 100mg IV & Nystatin QID mouth swab, mouth looks much better, still very dry - [employer] evaluated on 01/26. He held food and water in his mouth, but could not transfer posteriorly or swallow he had the same findings on 01/30, coughed back up applesauce and water one last evaluation with speech therapy on 02/01, he wanted a vanilla milkshake he was unable to transfer food / liquid bolus to back of throat very sad, he sad he was trying to swallow, he just can't do it keep NPO as high aspiration risk plan for PEG tube Tuesday 02/06 with Ivory TAVARES, Lovenox will be stopped 02/05 at noon (2) Refeeding syndrome: occurred afternoon on 01/31 was on PPN, signs/symptoms included sudden dyspnea, hypoxia, atrial fibrillation gave Lasix 40mg IV, stopped PPN, moved to PCU he is now completely stable for many days resumed PPN on 02/02 at lower rate of 60mL/hr and lower total volume daily of 1500mL currently tolerating feeds well phosphorus is normal (3) Acute respiratory failure with hypoxemia: sudden desaturation in afternoon on 01/31 with hypoxemia requiring 15L oxymask and BIPAP briefly CXR only showed persistent infiltrates BNP was not markedly elevated he was also in afib with RVR at the time most likely explanation was refeeding syndrome as he was getting PPN for about 24 hours prior to this happening refeeding syndrome can cause hypoxia, volume overload, arrhythmias moved to PCU, he has been stable for many days, remains on room air did get Lasix 40mg IV 02/01, appears euvolemic now stable today, monitor closely getting PPN over the weekend keep on PCU to monitor for afib-having paroxysmal as below (4) Atrial fibrillation: new diagnosis on 01/31 on monitor past for days he is sinus with PACs and some brief runs of afib rates in 70's-80s without rate control keep on PCU to monitor rate/rhythm while getting PPN On Lovenox therapeutic dosing until PEG tube placed (5) Urinary retention: dennis pulled 02/02 since he was alert and communicating, getting OOB to chair he became agitated, swinging at nurses and staff on 02/02 and 02/03 straight cath for 600mL Replaced dennis catheter on 02/03 as he will likely continue to retain and will be a source of agitation can follow up with urology as outpatient, keep dennis on discharge -We will plan to add tamsulosin once PEG tube placed (6) Goals of care, counseling/discussion: long discussion with family regarding goals of care on 01/29 and 01/30 and 02/01 by previous hospitalist they want him to get nutrition at this point, short term goal of improving nutrition to help improve strength they are on board with consult for GI for PEG tube as he pulled out NG tube twice they want him to come home but also want him to get stronger I discussed that those two likely would not go hand in hand, he would need to go to SNF for rehab if they want him stronger the patient's only stated goal is that he wants to go home focus on getting PEG tube Tuesday 02/06, PPN over the weekend (7) Metabolic encephalopathy: Due to COVID 19, delirium-improved significantly overall compared to previous descriptions of pulling out multiple lines and having to wear mitts as well as receiving Ativan - Continue treatment with redirection, supportive care, Dennis catheter for urinary retention -Also has no documented bowel movement in 23 days although doubt this is true -Bisacodyl suppository given today with small bowel movement as a result -PEG tube placement as above on Friday for improved nutrition, patient is in agreement with PEG tube placement (8) Pneumonia due to COVID-19 virus: Chest x-ray on admission had progressed significantly since his previous hospital stay a few days prior. -Remains on room air today, no distress - Was not a good candidate for remdesivir -- CrCl is nearly <30, and given he is 10+ days out from illness when he presented. repeat rapid COVID is NEGATIVE and he is off precautions (9) CKD (chronic kidney disease), stage III: Baseline CrCL 30s/40s. - Cr is stable (10) Coronary artery disease: No evidence of ACS, has a history of stents placed in 2019. -Home meds of Coreg, ASA, statin all on hold while n.p.o. IV metoprolol as needed Plan restart home meds once PEG tube placed Hydralazine as needed for elevated blood pressure (11) Type 2 diabetes mellitus: Pharmacy glycemic consult placed. - Holding oral agents - Continue insulin as per pharmacy -> Sugars in last 24 hours tolerable. (12) Hypertension: BP is somewhat elevated today unable to take medications PO Hydralazine IV as needed (13) Hypernatremia: due to poor volume intake on PPN now, monitor labs in the morning (14) DVT prophylaxis: Lovenox 1mg/kg BID due to afib will hold day prior to PEG Disposition-continued stay on PCU Admission and Anticipated Discharge Date Admission Date: January 12, 2020 Subjective Patient feeling well today. Nursing reports no issues overnight and he was not agitated or confused. He is actually oriented to place and year with me as well as month but did not know the date. He denies chest pain or shortness of breath but does have a slight cough he says. He knows that he is in the hospital and thinks he remembers me from before. Denies abdominal pain. Telemetry with mostly sinus rhythm with occasional proximal-isms of atrial fibrillation. Rates in the 80s with A. fib in sinus rhythm. Review of Systems Review of Systems: All systems reviewed & are unremarkable except as noted in HPI & below Physical Exam Constitutional: WD/WN, vitals as above Eyes: + anicteric sclerae Neck: trachea midline, no thyromegaly Respiratory: normal respiratory effort Auscultation: + crackles (At lower lung pro bilaterally); no rhonchi and no wheezes Cardiovascular: RRR, no murmur, no edema Chest (Breasts): Chest: normal inspection of chest Gastrointestinal (Abdomen): normal bowel sounds, soft, nontender, no hepatosplenomegaly Musculoskeletal: Extremities: extremities normal to inspection; no cyanosis and no clubbing Skin: no rashes, warm and dry Neurologic: moves all extremities and awake; no focal motor deficits Psychiatric: Orientation: alert, oriented to person, oriented to place and cooperative Lymphatic: no lymphedema Results & Data Results & Data ([facility]) Vital Signs (Past 12 Hours) Vital Signs Temp Pulse Resp BP Pulse Ox 02/05/20 08:12 36.6 C 66 20 147/83 H 92 02/05/20 04:32 36.7 C 76 18 174/80 H 93 Laboratory Results 02/05/20 02/05/20 02/05/20 Range/Units 18:05 12:07 10:47 WBC (4.8-10.8) K/uL RBC (4.7-6.1) M/uL Hgb (14.0-18.0) g/dL Hct (42-52) % MCV (80-100) fL MCH (25-34) pg MCHC (32-36) g/dL RDW Std Deviation (36.4-46.3) fL RDW Coeff of Allie (11.5-14.5) % Plt Count (130-400) K/uL MPV (7.4-10.4) fL Sodium 143 (136-145) mmol/L Potassium 4.1 (3.5-5.1) mmol/L Chloride 113 H (98-107) mmol/L Carbon Dioxide 28 (21-32) mmol/L Anion Gap 2.0 L (3-11) BUN 26 H (7-18) mg/dl Creatinine 1.01 (0.6-1.4) mg/dl Est Cr Clr Drug Dosing 54.9 ml/min Est GFR ( Amer) 77.2 Est GFR (Non-Af Amer) 66.6 BUN/Creatinine Ratio 25.5 H (10-20) Glucose 146 H (70-99) mg/dl POC Glucose 164 H 135 H (70-99) mg/dl Calcium 8.7 (8.5-10.1) mg/dl Phosphorus 3.3 (2.5-4.9) mg/dl Magnesium 2.2 (1.8-2.4) mg/dl Specimen Hemolysis 02/05/20 02/05/20 02/05/20 Range/Units 10:47 05:52 00:00 WBC 6.16 (4.8-10.8) K/uL RBC 4.48 L (4.7-6.1) M/uL Hgb 13.9 L (14.0-18.0) g/dL Hct 43.2 (42-52) % MCV 96.4 (80-100) fL MCH 31.0 (25-34) pg MCHC 32.2 (32-36) g/dL RDW Std Deviation 49.7 H (36.4-46.3) fL RDW Coeff of Allie 14.1 (11.5-14.5) % Plt Count 235 (130-400) K/uL MPV 10.0 (7.4-10.4) fL Sodium (136-145) mmol/L Potassium (3.5-5.1) mmol/L Chloride (98-107) mmol/L Carbon Dioxide (21-32) mmol/L Anion Gap (3-11) BUN (7-18) mg/dl Creatinine (0.6-1.4) mg/dl Est Cr Clr Drug Dosing ml/min Est GFR ( Amer) Est GFR (Non-Af Amer) BUN/Creatinine Ratio (10-20) Glucose (70-99) mg/dl POC Glucose 120 H 130 H (70-99) mg/dl Calcium (8.5-10.1) mg/dl Phosphorus (2.5-4.9) mg/dl Magnesium (1.8-2.4) mg/dl Specimen Hemolysis PG Care Time/CCT Total # of Minutes Spent Total Time Spent with Patient: Total time spent is greater than 50% in coordination of care (as documented) at patient's floor/unit and/or counseling patient: Coding Level of Care Code 55939 Subseq Hosp Care Lvl 2 Diagnoses Dysphagia R13.10 Refeeding syndrome E87.8 Acute respiratory failure with hypoxemia J96.01 Atrial fibrillation I48.91 Urinary retention R33.9 Goals of care, counseling/discussion Z71.89 Metabolic encephalopathy G93.41 Pneumonia due to COVID-19 virus U07.1; J12.89 CKD (chronic kidney disease), stage III N18.3 Coronary artery disease I25.10 Associated angina: without angina Coronary Disease-Associated Artery/Lesion type: [place] artery [place] vs. transplanted heart: [place] heart Type 2 diabetes mellitus E11.22; N18.3 Chronic kidney disease stage: stage 3 (moderate) Diabetes mellitus complication detail: with chronic kidney disease Diabetes mellitus complication status: with kidney complications Diabetes mellitus group home insulin use: without group home use Hypertension I10 Hypertension type: essential hypertension Hypernatremia E87.0 DVT prophylaxis Z29.9 (1) Type 2 diabetes mellitus Chronic kidney disease stage: stage 3 (moderate) Diabetes mellitus complication detail: with chronic kidney disease Diabetes mellitus complication status: with kidney complications 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 transplanted heart: [place] heart Qualified Code(s): I25.10 - Atherosclerotic heart disease of [place] coronary artery without angina pectoris (3) Hypertension Hypertension type: essential hypertension Qualified Code(s): I10 - Essential (primary) hypertension
--- NOTE | 2020-02-05 14:15 | XRay Report ---
ANISA CLINICAL HISTORY: constipation COMPARISON STUDY: [facility] January 27, 2020. FINDINGS: The bowel gas pattern is normal. [id number] amount stool within the distal colon and rectum is noted. IMPRESSION: 1. No evidence for a bowel obstruction. 2. Mild to moderate amount of stool within the distal colon and rectum. ACT 112: Negative or not required by law. Electronically signed by: Sina Morgan M.D. 02/05/2020 2:13 PM
[2020-02-05] MEDS ORDERED: Custom Peripheral Pn 1,500 ML in TPN BAG 0 ML IV SCH (16:00)
[2020-02-06] MEDS: INSULIN ASPART 100 UNITS/ML 3 ML PEN SC SCH ×4 (00:11→18:33)
[2020-02-06] MEDS: INSULIN GLARGINE SOLOSTAR 100 UNITS/ML 3 ML PEN SC SCH ×3 (00:11→20:02)
[2020-02-06] MEDS: ENOXAPARIN 80 MG/0.8 ML SYR SQ SCH (06:11)
[2020-02-06 08:32] LABS: Basophils # (auto) 0.02 K/uL (0-0.2); Basophils % (auto) 0.3 %; Eosinophils # (auto) 0.29 K/uL (0-0.5); Eosinophils % (auto) 3.9 %; Hematocrit (blood only) 36.5 % (42-52); Hemoglobin 12.3 g/dL (14.0-18.0); Immature Granulocytes # (auto) 0.04 K/uL (0.00-0.02); Immature Granulocytes % (auto) 0.5 %; Lymphocytes # (auto) 1.38 K/uL (1.2-3.4); Lymphocytes % (auto) 18.6 %; Mean Corpuscular Hgb Conc 33.7 g/dL (32-36); Mean Corpuscular Volume 95.1 fL (80-100); Mean Platelet Volume 10.2 fL (7.4-10.4); Monocytes # (auto) 1.24 K/uL (0.11-0.59); Monocytes % (auto) 16.8 %; Neutrophils # (auto) 4.43 K/uL (1.4-6.5); Neutrophils % (auto) 59.9 %; Platelet Count 344 K/uL (130-400); RDW Coefficient of Variation 14.3 % (11.5-14.5); RDW Standard Deviation 48.8 fL (36.4-46.3); Red Blood Count 3.84 M/uL (4.7-6.1)
[2020-02-06 09:01] LABS: Albumin Level 1.9 gm/dl (3.4-5.0); BUN Creatinine Ratio 25.7 (10-20); Bilirubin Direct 0.1 mg/dl (0-0.2); Calcium 8.7 mg/dl (8.5-10.1); Creatinine Clr Calc Pharmacy 54.3 ml/min; Est GFR (African American) 76.2; Est GFR (Non-African American) 65.8; Magnesium 1.9 mg/dl (1.8-2.4); Potassium 3.8 mmol/L (3.5-5.1)
[2020-02-06 09:04] LABS: Bilirubin,Total 0.4 mg/dl (0.2-1); Phosphorus 3.2 mg/dl (2.5-4.9); Total Protein 7.4 gm/dl (6.4-8.2)
[2020-02-06] MEDS ORDERED: MAGNESIUM SULFATE / D5W 1 GM/100 ML BAG IV ONE (10:00)
[2020-02-06] MEDS: THIAMINE HCL 100 MG in SYRINGE 9 ML IV SCH (10:27)
--- NOTE | 2020-02-06 14:51 | Pharmacy Report ---
Pharmacy Glycemic Short Note 2 - Date of Service February 06, 2020 - Glycemic Short BSG Results (Last 24 hours): 02/05/20 02/06/20 02/06/20 18:05 00:05 06:03 Glucose POC Glucose 164 H 185 H 230 H 02/06/20 02/06/20 07:58 11:56 Glucose 144 H POC Glucose 161 H OUTPATIENT ANTIDIABETIC REGIMEN: * amaryl, metformin, januvia * HbA1c: 9.7% (11/29/19) ASSESSMENT: 02/05: * BSGs yesterday of 120, 135, 164, and 185 mg/dL * Received 20 units of Lantus, 3 units of bolus, and 17 units of IV insulin via TPN * Dextrose content of TPN will be increased to 90 g today -> will increase insulin in TPN to 20 units 02/02: * [place] received 14 units of insulin yesterday (10 units of basal and 4 units bolus) * His PPN was resumed yesterday evening. It contains 85 grams of dextrose. Insulin in PPN will be increased today for hyperglycemia. * Fasting BSG also elevated (partially due to continuous infusion of dextrose from PPN). Will slightly increase basal insulin. * 01/30 * BSGs did climb into the mid-200s with the initiation of dextrose containing IVFs yesterday * Patient has been refusing some BSG checks leading to omission of Novolog at lunchtime yesterday and omission of Lantus last evening * Given current BSG trajectory, ongoing IV dextrose admin, and omission of basal insulin - will begin a scheduled Novolog Q 4 hrs scale that will provide a portion of the "basal" insulin needs while also covering the carbs in IV dextrose 01/29 * Patient received total of 26 units of insulin yesterday - TFs continue to be on hold as NG tube out * Had held basal insulin yesterday - provider now starting IVFs with dextrose this afternoon. Plan to start basal tonight and add a scale if BSGs trend up * Spoke with nurse, patient refusing insulin check at lunch - will try again to check BSG later tonight 01/28 * Patient received total of 58 units of insulin yesterday, of which 25 were basal insulin * Fasting BSG elevated at 292 mg/dL - follow Lantus scale for this AM * Nurse notified pharmacy later this morning that patient pulled out NG tube again / tube feeds stopped - d/c basal for HS PLAN FOR INPATIENT GLYCEMIC CONTROL: * Hold outpatient oral diabetes medications * Basal insulin * Lantus 15 units SQ qAM x 1, then resume per scale BID to provide 5-15 units (see EHR for details) * Bolus insulin - increase * Novolog SQ Q 6 hrs * Goal range: 120 -160 mg/dL * Correction factor: tighten to 15 mg/dL/unit * Prandial coverage: 20 units of insulin added to PPN
[2020-02-06] MEDS ORDERED: Custom Peripheral Pn 1,500 ML in TPN BAG 0 ML IV SCH (16:00)
--- NOTE | 2020-02-06 17:40 | Hospitalist Progress Note ---
Date of Service February 06, 2020 Assessment & Plan (1) Dysphagia: - Completed Diflucan 100mg IV & Nystatin QID mouth swab, mouth looks much better, still very dry - CHEMIST STEROIDS evaluated on 01/26. He held food and water in his mouth, but could not transfer posteriorly or swallow he had the same findings on 01/30, coughed back up applesauce and water one last evaluation with speech therapy on 02/01, he wanted a vanilla milkshake he was unable to transfer food / liquid bolus to back of throat very sad, he sad he was trying to swallow, he just can't do it keep NPO as high aspiration risk plan for PEG tube Tuesday 02/06 with Ivory TAVARES, Lovenox was stopped 02/05 at noon (2) Refeeding syndrome: occurred afternoon on 01/31 was on PPN, signs/symptoms included sudden dyspnea, hypoxia, atrial fibrillation gave Lasix 40mg IV, stopped PPN, moved to PCU he is now completely stable for many days resumed PPN on 02/02 at lower rate of 60mL/hr and lower total volume daily of 1500mL and is tolerating well phosphorus is normal After PEG tube placed, will restart tube feeds at a trickle rate, will appreciate any dietary input (3) Acute respiratory failure with hypoxemia: sudden desaturation in afternoon on 01/31 with hypoxemia requiring 15L oxymask and BIPAP briefly CXR only showed persistent infiltrates BNP was not markedly elevated he was also in afib with RVR at the time most likely explanation was refeeding syndrome as he was getting PPN for about 24 hours prior to this happening refeeding syndrome can cause hypoxia, volume overload, arrhythmias moved to PCU, he has been stable for many days, remains on room air did get Lasix 40mg IV 02/01, appears euvolemic now stable today, monitor closely getting PPN over the weekend keep on PCU to monitor for afib-having paroxysmal as below (4) Atrial fibrillation: new diagnosis on 01/31 on monitor past for days he is sinus with PACs and some brief runs of afib rates in 70's-80s without rate control keep on PCU to monitor rate/rhythm while getting PPN On Lovenox therapeutic dosing until PEG tube placed-placed on hold today (5) Urinary retention: dennis pulled 02/02 since he was alert and communicating, getting OOB to chair he became agitated, swinging at nurses and staff on 02/02 and 02/03 straight cath for 600mL Replaced dennis catheter on 02/03 as he will likely continue to retain and will be a source of agitation can follow up with urology as outpatient, keep dennis on discharge -We will plan to add tamsulosin once PEG tube placed (6) Goals of care, counseling/discussion: long discussion with family regarding goals of care on 01/29 and 01/30 and 02/01 by previous hospitalist they want him to get nutrition at this point, short term goal of improving nutrition to help improve strength they are on board with consult for GI for PEG tube as he pulled out NG tube twic e they want him to come home but also want him to get stronger Patient wants to go home, however family wants to see how he does after he starts on tube feeds but think that they will be able to bring him home with 02/09 care and home health focus on getting PEG tube Tuesday 02/06, PPN over the weekend (7) Metabolic encephalopathy: Due to COVID 19, delirium-improved significantly overall compared to previous descriptions of pulling out multiple lines/tubes and having to wear mitts as well as receiving Ativan - Continue treatment with redirection, supportive care, Dennis catheter for urinary retention -Also had no documented bowel movement in 23 days although doubt this is true -Bisacodyl suppository given on 02/04 with small bowel movement as a result -PEG tube placement as above on Friday for improved nutrition, patient is in agreement with PEG tube placement (8) Pneumonia due to COVID-19 virus: Chest x-ray on admission had progressed significantly since his previous hospital stay a few days prior. -Remains on room air today, no distress - Was not a good candidate for remdesivir -- CrCl is nearly <30, and given he is 10+ days out from illness when he presented. repeat rapid COVID is NEGATIVE and he is off precautions (9) CKD (chronic kidney disease), stage III: Baseline CrCL 30s/40s. - Cr is stable (10) Coronary artery disease: No evidence of ACS, has a history of stents placed in 2019. -Home meds of Coreg, ASA, statin all on hold while n.p.o. IV metoprolol as needed Plan restart home meds once PEG tube placed Hydralazine as needed for elevated blood pressure (11) Type 2 diabetes mellitus: Pharmacy glycemic consult placed. - Holding oral agents - Continue insulin as per pharmacy -> Sugars in last 24 hours tolerable. (12) Hypertension: BP normal unable to take medications PO Hydralazine IV as needed (13) Hypernatremia: due to poor volume intake, now resolved on PPN now, monitor labs in the morning (14) DVT prophylaxis: Lovenox 1mg/kg BID due to afib is now on hold Disposition-continued stay on PCU After PEG tube placement and restart feeds, watch for refeeding syndrome. Will need repeat evaluations by PT/OT to determine if needs rehab placement versus home with home health and 02/09 care provided as per family Admission and Anticipated Discharge Date Admission Date: January 12, 2020 Subjective Nursing reports patient did fairly well today. I saw him later in the day and he was awoken from sleep and was a little lethargic but answered questions appropriately. He was slightly confused. He remembered that he was having his procedure for PEG tube placement tomorrow. Otherwise no episodes of agitation. I discussed his care with his daughter on the phone. Telemetry with paroxysmal atrial fibrillation short runs, normal sinus rhythm, PACs, rates in the 90s to 130s. Review of Systems Review of Systems: All systems reviewed & are unremarkable except as noted in HPI & below Physical Exam Constitutional: WD/WN, vitals as above Eyes: + anicteric sclerae ENMT: Mouth: + oropharynx abnormality (Very dry) Neck: trachea midline, no thyromegaly Respiratory: normal respiratory effort Auscultation: + crackles (At lower lung pro bilaterally); no rhonchi and no wheezes Cardiovascular: RRR, no murmur, no edema Chest (Breasts): Chest: normal inspection of chest Gastrointestinal (Abdomen): normal bowel sounds, soft, nontender, no hepatosplenomegaly Musculoskeletal: Extremities: extremities normal to inspection; no cyanosis and no clubbing Skin: no rashes, warm and dry Neurologic: moves all extremities and awake; no focal motor deficits Psychiatric: Orientation: alert and cooperative Lymphatic: no lymphedema Results & Data Results & Data ([facility]) Vital Signs (Past 12 Hours) Vital Signs Temp Pulse Resp BP Pulse Ox 02/06/20 15:06 37.4 C 84 18 128/74 93 02/06/20 12:17 36.5 C 98 H 20 134/69 94 02/06/20 08:00 37.0 C 92 H 20 132/82 93 Laboratory Results 02/06/20 02/06/20 02/06/20 Range/Units 20:02 18:08 11:56 WBC (4.8-10.8) K/uL RBC (4.7-6.1) M/uL Hgb (14.0-18.0) g/dL Hct (42-52) % MCV (80-100) fL MCH (25-34) pg MCHC (32-36) g/dL RDW Std Deviation (36.4-46.3) fL RDW Coeff of Allie (11.5-14.5) % Plt Count (130-400) K/uL MPV (7.4-10.4) fL Immature Gran % (Auto) % Neut % (Auto) % Lymph % (Auto) % [place] % (Auto) % Eos % (Auto) % Baso % (Auto) % Neut # (Auto) (1.4-6.5) K/uL Lymph # (Auto) (1.2-3.4) K/uL [place] # (Auto) (0.11-0.59) K/uL Eos # (Auto) (0-0.5) K/uL Baso # (Auto) (0-0.2) K/uL Immature Gran # (Auto) (0.00-0.02) K/uL Sodium (136-145) mmol/L Potassium (3.5-5.1) mmol/L Chloride (98-107) mmol/L Carbon Dioxide (21-32) mmol/L Anion Gap (3-11) BUN (7-18) mg/dl Creatinine (0.6-1.4) mg/dl Est Cr Clr Drug Dosing ml/min Est GFR ( Amer) Est GFR (Non-Af Amer) BUN/Creatinine Ratio (10-20) Glucose (70-99) mg/dl POC Glucose 137 H 169 H 161 H (70-99) mg/dl Calcium (8.5-10.1) mg/dl Phosphorus (2.5-4.9) mg/dl Magnesium (1.8-2.4) mg/dl Total Bilirubin (0.2-1) mg/dl Direct Bilirubin (0-0.2) mg/dl AST (15-37) U/L ALT (12-78) U/L Alkaline Phosphatase (45-117) U/L Total Protein (6.4-8.2) gm/dl Albumin (3.4-5.0) gm/dl 02/06/20 02/06/20 02/06/20 Range/Units 07:58 07:58 06:03 WBC 7.40 (4.8-10.8) K/uL RBC 3.84 L (4.7-6.1) M/uL Hgb 12.3 L (14.0-18.0) g/dL Hct 36.5 L (42-52) % MCV 95.1 (80-100) fL MCH 32.0 (25-34) pg MCHC 33.7 (32-36) g/dL RDW Std Deviation 48.8 H (36.4-46.3) fL RDW Coeff of Allie 14.3 (11.5-14.5) % Plt Count 344 (130-400) K/uL MPV 10.2 (7.4-10.4) fL Immature Gran % (Auto) 0.5 % Neut % (Auto) 59.9 % Lymph % (Auto) 18.6 % [place] % (Auto) 16.8 % Eos % (Auto) 3.9 % Baso % (Auto) 0.3 % Neut # (Auto) 4.43 (1.4-6.5) K/uL Lymph # (Auto) 1.38 (1.2-3.4) K/uL [place] # (Auto) 1.24 H (0.11-0.59) K/uL Eos # (Auto) 0.29 (0-0.5) K/uL Baso # (Auto) 0.02 (0-0.2) K/uL Immature Gran # (Auto) 0.04 H (0.00-0.02) K/uL Sodium 144 (136-145) mmol/L Potassium 3.8 (3.5-5.1) mmol/L Chloride 109 H (98-107) mmol/L Carbon Dioxide 26 (21-32) mmol/L Anion Gap 9.0 (3-11) BUN 26 H (7-18) mg/dl Creatinine 1.02 (0.6-1.4) mg/dl Est Cr Clr Drug Dosing 54.3 ml/min Est GFR ( Amer) 76.2 Est GFR (Non-Af Amer) 65.8 BUN/Creatinine Ratio 25.7 H (10-20) Glucose 144 H (70-99) mg/dl POC Glucose 230 H (70-99) mg/dl Calcium 8.7 (8.5-10.1) mg/dl Phosphorus 3.2 (2.5-4.9) mg/dl Magnesium 1.9 (1.8-2.4) mg/dl Total Bilirubin 0.4 (0.2-1) mg/dl Direct Bilirubin 0.1 (0-0.2) mg/dl AST 23 (15-37) U/L ALT 27 (12-78) U/L Alkaline Phosphatase 81 (45-117) U/L Total Protein 7.4 (6.4-8.2) gm/dl Albumin 1.9 L (3.4-5.0) gm/dl 02/06/20 Range/Units 00:05 WBC (4.8-10.8) K/uL RBC (4.7-6.1) M/uL Hgb (14.0-18.0) g/dL Hct (42-52) % MCV (80-100) fL MCH (25-34) pg MCHC (32-36) g/dL RDW Std Deviation (36.4-46.3) fL RDW Coeff of Allie (11.5-14.5) % Plt Count (130-400) K/uL MPV (7.4-10.4) fL Immature Gran % (Auto) % Neut % (Auto) % Lymph % (Auto) % [place] % (Auto) % Eos % (Auto) % Baso % (Auto) % Neut # (Auto) (1.4-6.5) K/uL Lymph # (Auto) (1.2-3.4) K/uL [place] # (Auto) (0.11-0.59) K/uL Eos # (Auto) (0-0.5) K/uL Baso # (Auto) (0-0.2) K/uL Immature Gran # (Auto) (0.00-0.02) K/uL Sodium (136-145) mmol/L Potassium (3.5-5.1) mmol/L Chloride (98-107) mmol/L Carbon Dioxide (21-32) mmol/L Anion Gap (3-11) BUN (7-18) mg/dl Creatinine (0.6-1.4) mg/dl Est Cr Clr Drug Dosing ml/min Est GFR ( Amer) Est GFR (Non-Af Amer) BUN/Creatinine Ratio (10-20) Glucose (70-99) mg/dl POC Glucose 185 H (70-99) mg/dl Calcium (8.5-10.1) mg/dl Phosphorus (2.5-4.9) mg/dl Magnesium (1.8-2.4) mg/dl Total Bilirubin (0.2-1) mg/dl Direct Bilirubin (0-0.2) mg/dl AST (15-37) U/L ALT (12-78) U/L Alkaline Phosphatase (45-117) U/L Total Protein (6.4-8.2) gm/dl Albumin (3.4-5.0) gm/dl PG Care Time/CCT Total # of Minutes Spent Total Time Spent with Patient: Total time spent is greater than 50% in coordination of care (as documented) at patient's floor/unit and/or counseling patient: Coding Level of Care Code 95789 Subseq Hosp Care Lvl 3 Diagnoses Dysphagia R13.10 Refeeding syndrome E87.8 Acute respiratory failure with hypoxemia J96.01 Atrial fibrillation I48.91 Urinary retention R33.9 Goals of care, counseling/discussion Z71.89 Metabolic encephalopathy G93.41 Pneumonia due to COVID-19 virus U07.1; J12.89 CKD (chronic kidney disease), stage III N18.3 Coronary artery disease I25.10 Associated angina: without angina Coronary Disease-Associated Artery/Lesion type: [place] artery [place] vs. transplanted heart: [place] heart Type 2 diabetes mellitus E11.22; N18.3 Chronic kidney disease stage: stage 3 (moderate) Diabetes mellitus complication detail: with chronic kidney disease Diabetes mellitus complication status: with kidney complications Diabetes mellitus long term acute care registered nurse insulin use: without assisted use Hypertension I10 Hypertension type: essential hypertension Hypernatremia E87.0 DVT prophylaxis Z29.9 (1) Type 2 diabetes mellitus Chronic kidney disease stage: stage 3 (moderate) Diabetes mellitus complication detail: with chronic kidney disease Diabetes mellitus complication status: with kidney complications Diabetes mellitus assisted insulin use: without assisted use Qualified Code(s): E11.22 - Type 2 diabetes mellitus with diabetic chronic kidney disease; N18.3 - Chronic kidney disease, stage 3 (moderate) (2) Coronary artery disease Associated angina: without angina Coronary Disease-Associated Artery/Lesion type: [place] artery [place] vs. transplanted heart: [place] heart Qualified Code(s): I25.10 - Atherosclerotic heart disease of [place] coronary artery without angina pectoris (3) Hypertension Hypertension type: essential hypertension Qualified Code(s): I10 - Essential (primary) hypertension
[2020-02-07] MEDS: INSULIN ASPART 100 UNITS/ML 3 ML PEN SC SCH ×4 (01:02→17:38)
[2020-02-07 06:26] LABS: Basophils # (auto) 0.02 K/uL (0-0.2); Basophils % (auto) 0.3 %; Eosinophils # (auto) 0.27 K/uL (0-0.5); Hematocrit (blood only) 41.8 % (42-52); Hemoglobin 13.1 g/dL (14.0-18.0); Immature Granulocytes # (auto) 0.04 K/uL (0.00-0.02); Immature Granulocytes % (auto) 0.6 %; Lymphocytes % (auto) 17.9 %; Mean Corpuscular Hemoglobin 30.8 pg (25-34); Mean Corpuscular Hgb Conc 31.3 g/dL (32-36); Mean Corpuscular Volume 98.4 fL (80-100); Mean Platelet Volume 10.4 fL (7.4-10.4); Monocytes # (auto) 1.14 K/uL (0.11-0.59); Neutrophils # (auto) 4.03 K/uL (1.4-6.5); Neutrophils % (auto) 60.2 %; Platelet Count 307 K/uL (130-400); RDW Coefficient of Variation 14.4 % (11.5-14.5); RDW Standard Deviation 51.5 fL (36.4-46.3); Red Blood Count 4.25 M/uL (4.7-6.1)
[2020-02-07 06:37] LABS: BUN Creatinine Ratio 22.1 (10-20); Calcium 8.7 mg/dl (8.5-10.1); Creatinine Clr Calc Pharmacy 47.4 ml/min; Est GFR (African American) 64.6; Est GFR (Non-African American) 55.7; Magnesium 2.4 mg/dl (1.8-2.4); Potassium 4.5 mmol/L (3.5-5.1)
[2020-02-07 06:54] LABS: Albumin Globulin Ratio 0.4 (0.9-2); Bilirubin,Total 0.4 mg/dl (0.2-1); Globulin 5.7 gm/dl (2.5-4.0); Phosphorus 3.6 mg/dl (2.5-4.9); Total Protein 7.7 gm/dl (6.4-8.2)
[2020-02-07] MEDS ORDERED: METOPROLOL TARTRATE 1 MG/ML VIAL IV STA (08:09)
[2020-02-07] MEDS ORDERED: ACETAMINOPHEN 1,000 MG/100 ML VIAL IV STA (08:09)
[2020-02-07] MEDS ORDERED: ACETAMINOPHEN 1000 MG/100 ML IV IV ONE (08:11)
--- NOTE | 2020-02-07 08:15 | Hospitalist Progress Note ---
Date of Service February 07, 2020 Assessment & Plan (1) Atrial fibrillation: new diagnosis on 01/31 Afterwards, had sinus with PACs and some brief runs of afib for many days with rates in the 70s-80s without any rate control Went back into rapid atrial fibrillation with rates as high as the 180s on the morning of 02/06 in response to having rigors and a fever Improved rate control with IV Lopressor-we will make this scheduled 5 mg every 6 hours Appreciate cardiology consultation He has a bifascicular block and amiodarone would not be a good option at this time Restart therapeutic Lovenox for now as PEG tube placement is on hold (2) Sacral decubitus ulcer: Unstageable Nurse noted foul odor Wound culture taken May be the source of his fevers and rigors today Continue wound care, offload pressure (3) Fever: With rigors and fever to 37.6 on the morning of 02/06 IV Tylenol given Could be from worsening sacral decubitus ulcer Start empiric Zosyn and vancomycin Check blood cultures Follow CBC (4) Dysphagia: - Completed courses of Diflucan 100mg IV & Nystatin QID mouth swab, mouth looks much better, still very dry-restart nystatin - [employer] evaluated on 01/26. He held food and water in his mouth, but could not transfer posteriorly or swallow -he had the same findings on 01/30, coughed back up applesauce and water -one last evaluation with speech therapy on 02/01, he wanted a vanilla milkshake he was unable to transfer food / liquid bolus to back of throat very sad, he sad he was trying to swallow, he just can't do it keep NPO as high aspiration risk plan for PEG tube today was postponed due to rapid atrial fibrillation and fever -Hold PPN for now due to fever/rigors Start normal saline at 70 mL/h for hydration (5) Refeeding syndrome: occurred afternoon on 01/31 was on PPN, signs/symptoms included sudden dyspnea, hypoxia, atrial fibrillation gave Lasix 40mg IV, stopped PPN, moved to PCU He was completely stable for many days resumed PPN on 02/02 at lower rate of 60mL/hr and lower total volume daily of 1500mL and was tolerating well until had a recurrence of same symptoms on 02/06 which may be secondary to fever as above PEG tube placement postponed as above After PEG tube placed, will restart tube feeds at a trickle rate, will appreciate any dietary input (6) Acute respiratory failure with hypoxemia: sudden desaturation in afternoon on 01/31 with hypoxemia requiring 15L oxymask and BIPAP briefly CXR only showed persistent infiltrates BNP was not markedly elevated he was also in afib with RVR at the time most likely explanation was refeeding syndrome as he was getting PPN for about 24 hours prior to this happening refeeding syndrome can cause hypoxia, volume overload, arrhythmias moved to PCU since that time Had a recurrent exact episode on 02/06 of rapid atrial fibrillation and hypoxia as above (7) Urinary retention: dennis pulled 02/02 since he was alert and communicating, getting OOB to chair he became agitated, swinging at nurses and staff on 02/02 and 02/03 straight cath for 600mL Replaced dennis catheter on 02/03 as he will likely continue to retain and will be a source of agitation can follow up with urology as outpatient, keep dennis on discharge -We will plan to add tamsulosin once PEG tube placed (8) Goals of care, counseling/discussion: long discussion with family regarding goals of care on 01/29 and 01/30 and 02/01 by previous hospitalist they want him to get nutrition at this point, short term goal of improving nutrition to help improve strength they are on board with consult for GI for PEG tube as he pulled out NG tube twice they want him to come home but also want him to get stronger Patient wants to go home, however family wants to see how he does after he starts on tube feeds but think that they will be able to bring him home with 02/09 care and home health Now PEG tube placement postponed as above, not able to get nutrition Discussed with family again on 02/06-this does not miguel well for his prognosis (9) Metabolic encephalopathy: Due to COVID 19, delirium-improved significantly overall compared to previous descriptions of pulling out multiple lines/tubes and having to wear mitts as well as receiving Ativan He is now been mentating fairly well for the last 3 to 4 days - Continue treatment with redirection, supportive care, Dennis catheter for urinary retention -Also had no documented bowel movement in 23 days although doubt this is true -Bisacodyl suppository given on 02/04 with small bowel movement as a result -PEG tube placement now on hold (10) Pneumonia due to COVID-19 virus: Chest x-ray on admission had progressed significantly since his previous hospital stay a few days prior. -Remains on room air today, no distress - Was not a good candidate for remdesivir -- CrCl is nearly <30, and given he is 10+ days out from illness when he presented. repeat rapid COVID is NEGATIVE and he is off precautions Do not suspect recurrent pneumonia with recent fever We will check chest x-ray in the morning Follow CBC, procalcitonin in the morning (11) CKD (chronic kidney disease), stage III: Baseline CrCL 30s/40s. - Cr is stable -Avoid nephrotoxins -renally dose meds when appropriate -follow BMP (12) Coronary artery disease: No evidence of ACS, has a history of stents placed in 2019. -Home meds of Coreg, ASA, statin all on hold while n.p.o. IV metoprolol scheduled Plan restart home meds once PEG tube placed (13) Type 2 diabetes mellitus: Pharmacy glycemic consult placed. - Holding oral agents - Continue insulin as per pharmacy -> Sugars in last 24 hours tolerable. (14) Hypertension: BP normal unable to take medications PO Now on scheduled IV Lopressor (15) Hypernatremia: due to poor volume intake, now resolved on PPN now, monitor labs in the morning (16) DVT prophylaxis: Lovenox 1mg/kg BID due to afib was on hold for procedure which got canceled today. Restart therapeutic Lovenox dosing Disposition-continued stay on PCU Condition is guarded as discussed with daughter on the phone today Remains full code Palliative care is following Admission and Anticipated Discharge Date Admission Date: January 12, 2020 Subjective I was called urgently to the bedside early this morning by nursing staff as patient was noted to have rigors, atrial fibrillation as high as the 180s, and she was unable initially to obtain a blood pressure or accurate pulse ox. Eventually, a pulse ox was able to be obtained on the patient's forehead and was 90%. He was quite tachypneic. His blood pressures in the 150 systolic. He was given IV Lopressor and IV Tylenol in case of developing fever. Cardiology was consulted and I discussed the case with cardiology. I held his PPN and advised the GI team of his decompensation and recommended cancellation of PEG tube for today. I also contacted the patient's daughter and reviewed the acute issues of the morning. After IV Lopressor, his heart rate came down to the low 100s over the next 20 to 30 minutes. He was mentating throughout the episode and reported feeling cold and reported not feeling well. He denied any chest pain but felt short of breath. He denied abdominal pain. Review of Systems Review of Systems: All systems reviewed & are unremarkable except as noted in HPI & below Nursing also reports that his sacral decubitus wound is with a foul odor and a wound culture was obtained Physical Exam Constitutional: + acute distress (With rigors) and + ill appearing Eyes: + anicteric sclerae ENMT: Mouth: + oropharynx abnormality (Very dry) Neck: trachea midline, no thyromegaly Respiratory: + respiratory distress and + tachypneic Auscultation: + crackles (At lower lung pro bilaterally); no rhonchi and no wheezes Cardiovascular: Rate/Rhythm: + tachycardic and + irregularly irregular Heart Sounds: no murmur Extremities: no edema Chest (Breasts): Chest: normal inspection of chest Gastrointestinal (Abdomen): normal bowel sounds, soft, nontender, no hepatosplenomegaly Musculoskeletal: Extremities: extremities normal to inspection; no cyanosis and no clubbing Skin: no rashes, warm and dry Neurologic: moves all extremities and awake; no focal motor deficits Psychiatric: Orientation: alert and cooperative Lymphatic: no lymphedema Results & Data Results & Data ([facility]) Vital Signs (Past 12 Hours) Vital Signs Temp Pulse Resp BP Pulse Ox 02/07/20 04:00 37.0 C 104 H 18 139/62 93 02/07/20 00:47 37 C 94 H 18 123/65 90 Laboratory Results 02/07/20 02/07/20 02/07/20 Range/Units 19:52 17:37 11:48 WBC (4.8-10.8) K/uL RBC (4.7-6.1) M/uL Hgb (14.0-18.0) g/dL Hct (42-52) % MCV (80-100) fL MCH (25-34) pg MCHC (32-36) g/dL RDW Std Deviation (36.4-46.3) fL RDW Coeff of Allie (11.5-14.5) % Plt Count (130-400) K/uL MPV (7.4-10.4) fL Immature Gran % (Auto) % Neut % (Auto) % Lymph % (Auto) % [place] % (Auto) % Eos % (Auto) % Baso % (Auto) % Neut # (Auto) (1.4-6.5) K/uL Lymph # (Auto) (1.2-3.4) K/uL [place] # (Auto) (0.11-0.59) K/uL Eos # (Auto) (0-0.5) K/uL Baso # (Auto) (0-0.2) K/uL Immature Gran # (Auto) (0.00-0.02) K/uL Sodium (136-145) mmol/L Potassium (3.5-5.1) mmol/L Chloride (98-107) mmol/L Carbon Dioxide (21-32) mmol/L Anion Gap (3-11) BUN (7-18) mg/dl Creatinine (0.6-1.4) mg/dl Est Cr Clr Drug Dosing ml/min Est GFR ( Amer) Est GFR (Non-Af Amer) BUN/Creatinine Ratio (10-20) Glucose (70-99) mg/dl POC Glucose 136 H 165 H 175 H (70-99) mg/dl Calcium (8.5-10.1) mg/dl Phosphorus (2.5-4.9) mg/dl Magnesium (1.8-2.4) mg/dl Total Bilirubin (0.2-1) mg/dl AST (15-37) U/L ALT (12-78) U/L Alkaline Phosphatase (45-117) U/L Total Protein (6.4-8.2) gm/dl Albumin (3.4-5.0) gm/dl Globulin (2.5-4.0) gm/dl Albumin/Globulin Ratio (0.9-2) Specimen Hemolysis 02/07/20 02/07/20 02/07/20 Range/Units 05:32 05:17 05:17 WBC 6.70 (4.8-10.8) K/uL RBC 4.25 L (4.7-6.1) M/uL Hgb 13.1 L (14.0-18.0) g/dL Hct 41.8 L (42-52) % MCV 98.4 (80-100) fL MCH 30.8 (25-34) pg MCHC 31.3 L (32-36) g/dL RDW Std Deviation 51.5 H (36.4-46.3) fL RDW Coeff of Allie 14.4 (11.5-14.5) % Plt Count 307 (130-400) K/uL MPV 10.4 (7.4-10.4) fL Immature Gran % (Auto) 0.6 % Neut % (Auto) 60.2 % Lymph % (Auto) 17.9 % [place] % (Auto) 17.0 % Eos % (Auto) 4.0 % Baso % (Auto) 0.3 % Neut # (Auto) 4.03 (1.4-6.5) K/uL Lymph # (Auto) 1.20 (1.2-3.4) K/uL [place] # (Auto) 1.14 H (0.11-0.59) K/uL Eos # (Auto) 0.27 (0-0.5) K/uL Baso # (Auto) 0.02 (0-0.2) K/uL Immature Gran # (Auto) 0.04 H (0.00-0.02) K/uL Sodium 141 (136-145) mmol/L Potassium 4.5 D (3.5-5.1) mmol/L Chloride 108 H (98-107) mmol/L Carbon Dioxide 28 (21-32) mmol/L Anion Gap 5.0 (3-11) BUN 26 H (7-18) mg/dl Creatinine 1.17 (0.6-1.4) mg/dl Est Cr Clr Drug Dosing 47.4 ml/min Est GFR ( Amer) 64.6 Est GFR (Non-Af Amer) 55.7 BUN/Creatinine Ratio 22.1 H (10-20) Glucose 157 H (70-99) mg/dl POC Glucose 142 H (70-99) mg/dl Calcium 8.7 (8.5-10.1) mg/dl Phosphorus 3.6 (2.5-4.9) mg/dl Magnesium 2.4 (1.8-2.4) mg/dl Total Bilirubin 0.4 (0.2-1) mg/dl AST 30 (15-37) U/L ALT 26 (12-78) U/L Alkaline Phosphatase 84 (45-117) U/L Total Protein 7.7 (6.4-8.2) gm/dl Albumin 2.0 L (3.4-5.0) gm/dl Globulin 5.7 H (2.5-4.0) gm/dl Albumin/Globulin Ratio 0.4 L (0.9-2) Specimen Hemolysis 02/07/20 Range/Units 00:38 WBC (4.8-10.8) K/uL RBC (4.7-6.1) M/uL Hgb (14.0-18.0) g/dL Hct (42-52) % MCV (80-100) fL MCH (25-34) pg MCHC (32-36) g/dL RDW Std Deviation (36.4-46.3) fL RDW Coeff of Allie (11.5-14.5) % Plt Count (130-400) K/uL MPV (7.4-10.4) fL Immature Gran % (Auto) % Neut % (Auto) % Lymph % (Auto) % [place] % (Auto) % Eos % (Auto) % Baso % (Auto) % Neut # (Auto) (1.4-6.5) K/uL Lymph # (Auto) (1.2-3.4) K/uL [place] # (Auto) (0.11-0.59) K/uL Eos # (Auto) (0-0.5) K/uL Baso # (Auto) (0-0.2) K/uL Immature Gran # (Auto) (0.00-0.02) K/uL Sodium (136-145) mmol/L Potassium (3.5-5.1) mmol/L Chloride (98-107) mmol/L Carbon Dioxide (21-32) mmol/L Anion Gap (3-11) BUN (7-18) mg/dl Creatinine (0.6-1.4) mg/dl Est Cr Clr Drug Dosing ml/min Est GFR ( Amer) Est GFR (Non-Af Amer) BUN/Creatinine Ratio (10-20) Glucose (70-99) mg/dl POC Glucose 166 H (70-99) mg/dl Calcium (8.5-10.1) mg/dl Phosphorus (2.5-4.9) mg/dl Magnesium (1.8-2.4) mg/dl Total Bilirubin (0.2-1) mg/dl AST (15-37) U/L ALT (12-78) U/L Alkaline Phosphatase (45-117) U/L Total Protein (6.4-8.2) gm/dl Albumin (3.4-5.0) gm/dl Globulin (2.5-4.0) gm/dl Albumin/Globulin Ratio (0.9-2) Specimen Hemolysis PG Care Time/CCT Total # of Minutes Spent Total Time Spent with Patient: Total time spent is greater than 50% in coordination of care (as documented) at patient's floor/unit and/or counseling patient: Prolonged Care Time Prolonged Care Time: Yes Total Prolonged Care Time: 90 Coding Level of Care Code 80894 Subseq Hosp Care Lvl 3 (25 - SIGNIFICANT, SEPARATELY IDENTIFIABLE ) Diagnoses Atrial fibrillation I48.91 Sacral decubitus ulcer L89.159 Fever R50.9 Dysphagia R13.10 Refeeding syndrome E87.8 Acute respiratory failure with hypoxemia J96.01 Urinary retention R33.9 Goals of care, counseling/discussion Z71.89 Metabolic encephalopathy G93.41 Pneumonia due to COVID-19 virus U07.1; J12.89 CKD (chronic kidney disease), stage III N18.3 Coronary artery disease I25.10 Associated angina: without angina Coronary Disease-Associated Artery/Lesion type: [place] artery [place] vs. 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 computer operator insulin use: without terminal computer operator use Hypertension I10 Hypertension type: essential hypertension Hypernatremia E87.0 DVT prophylaxis Z29.9 Additional Codes Prolonged Care Time - Prolonged Care Time: Yes ([id number]) (1) Type 2 diabetes mellitus Chronic kidney disease stage: stage 3 (moderate) Diabetes mellitus complication detail: with chronic kidney disease Diabetes mellitus complication status: with kidney complications Diabetes mellitus chcf insulin use: without terminal computer operator use Qualified Code(s): E11.22 - Type 2 diabetes mellitus with diabetic chronic kidney disease; N18.3 - Chronic kidney disease, stage 3 (moderate) (2) Coronary artery disease Associated angina: without angina Coronary Disease-Associated Artery/Lesion type: [place] artery [place] vs. transplanted heart: [place] heart Qualified Code(s): I25.10 - Atherosclerotic heart disease of [place] coronary artery without angina pectoris (3) Hypertension Hypertension type: essential hypertension Qualified Code(s): I10 - Essential (primary) hypertension
[2020-02-07] MEDS ORDERED: VANCOMYCIN CONSULT ACTIVE PRN (09:20)
[2020-02-07] MEDS ORDERED: PIPERACILL/TAZOBAC CONSULT ACTIVE PRN (09:20)
[2020-02-07] MEDS ORDERED: VANCOMYCIN HCL 1,000 MG in SODIUM CHLORIDE 0.9% 250 ML IV SCH (09:30)
[2020-02-07] MEDS ORDERED: PIPERACILLIN/TAZOBACTAM 3.375 GM in DEXTROSE 5% 100 ML IV ONE (09:45)
[2020-02-07] MEDS ORDERED: VANCOMYCIN HCL 1,750 MG in SODIUM CHLORIDE 0.9% 500 ML IV ONE (10:00)
--- NOTE | 2020-02-07 10:14 | Cardiology Consultation ---
Date of Consultation February 07, 2020 Assessment & Plan (1) Atrial fibrillation: It is difficult to determine the exact mechanism of the patient's arrhythmia. It certainly appears to be atrial fibrillation at times although I think a multifocal atrial tachycardia would also be a possibility. He appears to have some brief episodes of sinus rhythm marked by frequent and consecutive atrial ectopy. Over the past few days his overall rate control has been adequate without any specific rate control agents. He has been unable to take any oral medications due to concerns over swallowing and aspiration. This morning's episode was likely precipitated by transient bacteremia and fever. The patient appeared to have rigors. He is known to have a sacral decubitus ulcer. This would represent a possible source of transient bacteremia. He did not have a documented temperature at that time but his heart rate and symptoms appear to respond to Tylenol. He was administered metoprolol in this time frame as well. I think the best option moving forward is simply to re-initiate therapy with beta-blockade. While he is unable to take oral medications we can administer scheduled metoprolol. Once a PEG tube or other means for delivering or medications has been established we can resume his outpatient medical regimen which includes carvedilol. He does have an element of conduction disease with a right bundle branch block and left anterior fascicular block. We will need to be cautious with institution of anti rhythmics if necessary. (2) CAD (coronary artery disease): He is known to have extensive coronary disease. He has previously und ergone percutaneous intervention on more than 1 occasion. Stents to the LAD and RCA. This hospitalization is not appear to involve an acute coronary syndrome or evidence of coronary insufficiency. Ideally he would be back on his usual outpatient medical regimen which consists of aspirin atorvastatin and carvedilol. (3) Peripheral arterial disease: Patient underwent RONAK testing earlier this year which revealed significant occlusive disease involving the left leg. Will need to monitor for evidence of ischemia. History of Present Illness Reason for Consultation: Atrial fibrillation with rapid ventricular response Requesting Physician: Carolyn Attending Physician: Lucinda Leon MD History of Present Illness The patient is an 89-year-old gentleman with a history of coronary artery disease who was admitted to the hospital nearly 1 month ago with progressive symptoms associated with COVID-19. His hospital course has been complicated by an inability to swallow, weakness, aspiration, Re feeding syndrome, atrial fibrillation, confusion and development of a decubitus ulcer. The patient has not been able to swallow for some time, and had been receiving nutrition both with nasogastric tubes and more recently with peripheral parental nutrition. He was scheduled for a PEG tube placement today. This morning the patient was noted by nursing staff to have developed a tachycardia. He also appeared to have rigors and was complaining of feeling cold. The patient was administered intravenous beta-blockade and Tylenol with improvement in his symptoms. According to the record it seems that the patient did develop a rhythm consistent with atrial fibrillation on January 31. However, his overall heart rates appeared reasonably well controlled. The patient currently reports being uncomfortable. He was not able to characterize this more definitively. He denied significant breathing difficulty. He denies chest pain. He was not aware of any palpitations. He admits to feeling weak. He did not have much insight into his current medical condition or why he was in the hospital. Allergies Allergy/AdvReac Type Severity Reaction Status Date / Time No Known Drug Allergies Allergy Verified 01/12/20 14:39 Home Medications Medication Instructions Recorded Confirmed Type aspirin 81 mg tablet,delayed 81 mg PO QAM 03/12/18 01/12/20 History release clonidine HCl 0.1 mg tablet 0.1 mg PO DAILY PRN tab 11/04/18 01/12/20 History pantoprazole 40 mg tablet,delayed 40 mg PO BID #180 tab 02/24/19 01/12/20 Rx release carvedilol 25 mg tablet 25 mg PO BID #180 tab 05/06/19 01/12/20 Rx metformin 1,000 mg tablet 1,000 mg PO BID #180 tab 05/17/19 01/12/20 Rx atorvastatin 80 mg tablet 80 mg PO HS #90 tab 06/21/19 01/12/20 Rx glimepiride 4 mg tablet 4 mg PO BID #180 tab 08/04/19 01/12/20 Rx Januvia 25 mg PO HS 01/08/20 01/12/20 History ondansetron HCl [Zofran] 4 mg PO Q8H PRN 5 Days #20 tab 01/09/20 01/12/20 Rx Patient History Medical History Actinic keratosis Anaplasmosis Atrial premature complex Benign localized prostatic hyperplasia with lower urinary tract symptoms (LUTS) BMI 29.0-29.9,adult CAD (coronary artery disease) Chews tobacco regularly CKD (chronic kidney disease), stage III Constipation Depression Diabetes mellitus Diabetic nephropathy Diabetic peripheral neuropathy Dieulafoy lesion of stomach Erythematous papules of skin Gastritis GERD (gastroesophageal reflux disease) Helicobacter pylori ab+ (10/27/13) Hiatal hernia History of SCC (squamous cell carcinoma) of skin Hypertension Rhabdomyolysis SI joint arthritis Trochanteric bursitis Type 2 diabetes mellitus Unilateral primary osteoarthritis, left hip Urinary hesitancy Visual impairment Vitamin D deficiency Surgical History History of appendectomy History of colonoscopy History of transurethral resection of prostate Family History Unknown Diabetes Coronary heart disease Father Prostate cancer Social History Smoking Status: Never smoker Tobacco Type: Smokeless Tobacco (Dip or Chew) Age Started Using Tobacco: 22; Second Hand Exposure: No; Hx Alcohol Use: No Hx Substance Use: No Preferred Language: Latvian Communication Ability: Effective Hearing Ability: Use of Hearing Aid [employer] Required: No Beliefs That Will Affect Care: None marital status: Current Living Situation: Spouse Current Living Situation Comment: lives in [place] current occupational status: retired 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 He answered some questions appropriately. He appeared confused at times. He has little insight. He did not always follow commands. Using supplemental oxygen HEENT: Pupils are equal and reactive to light and accommodation. Extraocular movements are intact. The sclerae are anicteric. Poor dentition Neuro: Cranial nerves intact Neck: Patient's neck is supple. He has palpable carotid pulses bilaterally without bruits on auscultation. There is no evidence of jugular venous distention. The thyroid is not enlarged. Lungs: Coarse upper respiratory sounds and poor excursion. Unable to complete the examination S the patient did not follow commands. Cardiac: Heart demonstrates an irregular rhythm. Elevated heart rate. Normal S1 and S2. No murmurs on examination. Pulses: The patient has palpable radial pulses bilaterally that are equal in intensity Extremities: There was no evidence of hypoperfusion. There is no cyanosis or clubbing. There is no edema. Skin: I did not appreciate any rashes on examination today. Results & Data ([facility]) Vital Signs (Past 12 Hours) Vital Signs Temp Pulse Pulse Resp BP BP Pulse Ox 02/07/20 08:28 165 H 158/80 H 02/07/20 04:00 37.0 C 104 H 18 139/62 93 02/07/20 00:47 37 C 94 H 18 123/65 90 Laboratory Results Abnormal Lab Results 02/06/20 02/06/20 02/06/20 11:56 18:08 20:02 WBC RBC Hgb Hct MCV MCH MCHC RDW Std Deviation RDW Coeff of Allie Plt Count MPV Immature Gran % (Auto) Neut % (Auto) Lymph % (Auto) [place] % (Auto) Eos % (Auto) Baso % (Auto) Neut # (Auto) Lymph # (Auto) [place] # (Auto) Eos # (Auto) Baso # (Auto) Immature Gran # (Auto) Sodium Potassium Chloride Carbon Dioxide Anion Gap BUN Creatinine Est Cr Clr Drug Dosing Est GFR ( Amer) Est GFR (Non-Af Amer) BUN/Creatinine Ratio Glucose POC Glucose 161 H 169 H 137 H Calcium Phosphorus Magnesium Total Bilirubin AST ALT Alkaline Phosphatase Total Protein Albumin Globulin Albumin/Globulin Ratio Specimen Hemolysis 02/07/20 02/07/20 02/07/20 00:38 05:17 05:17 WBC 6.70 RBC 4.25 L Hgb 13.1 L Hct 41.8 L MCV 98.4 MCH 30.8 MCHC 31.3 L RDW Std Deviation 51.5 H RDW Coeff of Allie 14.4 Plt Count 307 MPV 10.4 Immature Gran % (Auto) 0.6 Neut % (Auto) 60.2 Lymph % (Auto) 17.9 [place] % (Auto) 17.0 Eos % (Auto) 4.0 Baso % (Auto) 0.3 Neut # (Auto) 4.03 Lymph # (Auto) 1.20 [place] # (Auto) 1.14 H Eos # (Auto) 0.27 Baso # (Auto) 0.02 Immature Gran # (Auto) 0.04 H Sodium 141 Potassium 4.5 D Chloride 108 H Carbon Dioxide 28 Anion Gap 5.0 BUN 26 H Creatinine 1.17 Est Cr Clr Drug Dosing 47.4 Est GFR ( Amer) 64.6 Est GFR (Non-Af Amer) 55.7 BUN/Creatinine Ratio 22.1 H Glucose 157 H POC Glucose 166 H Calcium 8.7 Phosphorus 3.6 Magnesium 2.4 Total Bilirubin 0.4 AST 30 ALT 26 Alkaline Phosphatase 84 Total Protein 7.7 Albumin 2.0 L Globulin 5.7 H Albumin/Globulin Ratio 0.4 L Specimen Hemolysis 02/07/20 05:32 WBC RBC Hgb Hct MCV MCH MCHC RDW Std Deviation RDW Coeff of Allie Plt Count MPV Immature Gran % (Auto) Neut % (Auto) Lymph % (Auto) [place] % (Auto) Eos % (Auto) Baso % (Auto) Neut # (Auto) Lymph # (Auto) [place] # (Auto) Eos # (Auto) Baso # (Auto) Immature Gran # (Auto) Sodium Potassium Chloride Carbon Dioxide Anion Gap BUN Creatinine Est Cr Clr Drug Dosing Est GFR ( Amer) Est GFR (Non-Af Amer) BUN/Creatinine Ratio Glucose POC Glucose 142 H Calcium Phosphorus Magnesium Total Bilirubin AST ALT Alkaline Phosphatase Total Protein Albumin Globulin Albumin/Globulin Ratio Specimen Hemolysis Diagnostic Findings On 10/30/2018 was performed during dobutamine infusion. Baseline echocardiogram demonstrated normal wall motion and LV function. There were inducible wall motion abnormalities in the RCA and LAD distributions. Cardiac catheterization performed 10/30/2018 revealed ostial PDA disease and 99% stenosis of D1. 7% lad lesion distal to prior stents. Occluded diagonal branch with [id number] collaterals. 50% proximal left circumflex lesion. PG Care Time/CCT Total # of Minutes Spent Total Time Spent with Patient: Total time spent is greater than 50% in coord ination of care (as documented) at patient's floor/unit and/or counseling patient: Coding Level of Care Code 59854 Initial Inpt Care Lvl 3 Diagnoses Atrial fibrillation I48.91 CAD (coronary artery disease) I25.10 Peripheral arterial disease I73.9
--- NOTE | 2020-02-07 10:28 | Communication Note ---
Date of Service: February 07, 2020 Admitted > 1 month w/ COVID-19 planned for PEG this AM given dysphagia. Prior to my evaluation he developed afib, formal cardiology consultation pending. Will likely need PEG placed in OR if cleared but can discuss again with anesthesia. Again would need his Lovenox to be held for PEG placement.
[2020-02-07] MEDS: INSULIN GLARGINE SOLOSTAR 100 UNITS/ML 3 ML PEN SC SCH ×2 (10:47→21:25)
[2020-02-07] MEDS: THIAMINE HCL 100 MG in SYRINGE 9 ML IV SCH (10:47)
--- NOTE | 2020-02-07 12:14 | Pharmacy Report ---
Pharmacy Glycemic Short Note 2 - Date of Service February 07, 2020 - Glycemic Short BSG Results (Last 24 hours): 02/06/20 02/06/20 02/07/20 18:08 20:02 00:38 Glucose POC Glucose 169 H 137 H 166 H 02/07/20 02/07/20 02/07/20 05:17 05:32 11:48 Glucose 157 H POC Glucose 142 H 175 H OUTPATIENT ANTIDIABETIC REGIMEN: * amaryl, metformin, januvia * HbA1c: 9.7% (11/29/19) ASSESSMENT: 02/06: * PEG placement originally planned for today - now on hold * PPN placed on hold for Afib and rigors - will scale back on insulin considerably * Vancomycin and Zosyn started empirically for possible sepsis 02/05: * BSGs yesterday of 120, 135, 164, and 185 mg/dL * Received 20 units of Lantus, 3 units of bolus, and 17 units of IV insulin via TPN * Dextrose content of TPN will be increased to 90 g today -> will increase insulin in TPN to 20 units 01/28 * Patient received total of 58 units of insulin yesterday, of which 25 were basal insulin * Fasting BSG elevated at 292 mg/dL - follow Lantus scale for this AM * Nurse notified pharmacy later this morning that patient pulled out NG tube again / tube feeds stopped - d/c basal for HS PLAN FOR INPATIENT GLYCEMIC CONTROL: * Hold outpatient oral diabetes medications * Basal insulin - decrease * Lantus 10 units SQ qAM x 1 * Lantus scale this evening to provide up to an additional 5 units (see EHR for details) * Bolus insulin - continue * Novolog SQ Q 6 hrs * Goal range: 120 -160 mg/dL * Correction factor: tighten to 15 mg/dL/unit
[2020-02-07] MEDS: NYSTATIN SUSP 500,000 U/5 ML UDC PO SCH ×3 (12:30→19:53)
--- NOTE | 2020-02-07 13:53 | Pharmacy Report ---
Pharmacy Abx Initial Consult - Date of Service February 07, 2020 - Pharmacy Dosing Scope Date of Consult: 02/07/20 Consultation requested by: Dr. Leon Pharmacy is consulted to initiate vancomycin and Zosyn IV dosing therapy, order appropriate labs and adjust drug dose/frequency. - Subjective The patient is a 89 year old M admitted on 01/12/20 16:14. - Objective Height: 5 ft 11 in Weight: 72.5 kg Vital Signs (Past 12hrs): Vital Signs Temp Pulse Pulse Resp BP BP Pulse Ox 02/07/20 11:43 37.5 C 119 H 22 136/78 92 02/07/20 08:28 165 H 158/80 H 02/07/20 08:25 37.6 C H 112 H 22 132/77 92 02/07/20 07:02 135 H 90 02/07/20 07:00 36.8 C 126 H 20 158/80 H 78 L 02/07/20 04:00 37.0 C 104 H 18 139/62 93 Lab Results (24hrs): Laboratory Tests (24 Hours) 02/07/20 02/07/20 05:17 05:17 WBC 6.70 Neut # (Auto) 4.03 Creatinine 1.17 Est Cr Clr Drug Dosing 47.4 Micro Results: 02/07/20 11:47 Gram Stain - Final Coccyx Decubitus Deep Wound Culture - Pending 02/07/20 08:43 Aerobic Blood Culture - Pending Blood Anaerobic Blood Culture - Pending 02/07/20 08:34 Aerobic Blood Culture - Pending Blood Anaerobic Blood Culture - Pending 01/12/20 13:22 Aerobic Blood Culture - Final Blood No growth in Aerobic bottle after 5 days. Anaerobic Blood Culture - Final No growth in Anaerobic bottle after 5 days. 01/12/20 13:22 Aerobic Blood Culture - Final Blood No growth in Aerobic bottle after 5 days. Anaerobic Blood Culture - Final No growth in Anaerobic bottle after 5 days. 01/12/20 18:26 Urine Culture - Final Urine,Clean Catch More than three types of organisms present, all moderate counts mixed probable skin sam. No further identifications or sensitivities to follow. - Assessment & Plan Assessment 89 year old M ordered empiric vancomycin and Zosyn for treatment of possible sepsis. Patient has been hospitalized since 01/12/20 for inpatient treatment of COVID-19 pneumonia. He has been on PPN intermittently during this hospitaliza tion, PEG placement was planned for today, but cancelled due to rigors and new Afib with RVR. PPN is a potential source of infection and has been placed on hold. Tmax: 37.6 C this morning, no leukocytosis. Renal function appears to be near baseline (SCr: 1.17 mg/dL). Patient has been hospitalized since 01/12/20, so broad spectrum antibiotics are reasonable at this time. Plan Vancomycin IV * Loading dose: 1750 mg (24 mg/kg) * Maintenance dose: 1000 mg IV (14 mg/kg) every 18 hours * Goal trough level empirically will be 15 to 20 mcg/mL * Trough level to be obtained if patient remains on therapy beyond 48 hours Piperacillin/tazobactam * 3.375 g bolus administered over 30 minutes, then 3.375 g IV extended infusion every 8 hours for CrCl greater than 20 mL/min Pharmacy will continue to follow and will adjust dose/frequency as necessary. Thank you.
[2020-02-07] MEDS: PIPERACILLIN/TAZOBACTAM 3.375 GM in DEXTROSE 5% 100 ML IV SCH (17:28)
--- NOTE | 2020-02-07 18:32 | Electrocardiogram Report ---
Test Reason : Blood Pressure : / mmHG Vent. Rate : 147 BPM Atrial Rate : 113 BPM P-R Int : 000 ms QRS Dur : 126 ms QT Int : 318 ms P-R-T Axes : 000 -80 035 degrees QTc Int : 497 ms Likely atrial fibrillation Right bundle branch block Left anterior fascicular block Bifascicular block Minimal voltage criteria for LVH, may be normal variant Abnormal ECG When compared with ECG of 01-FEB-2020 14:00, ST now depressed in Anterior leads Confirmed by Jose Maldonado ([id number]) on 02/07/2020 6:31:39 PM Referred By: REFERRED SELF Confirmed By:Doug Maldonado
[2020-02-07] MEDS ORDERED: Nursing to Pharmacy Communication SCH (18:45)
[2020-02-07] MEDS: METOPROLOL TARTRATE 1 MG/ML VIAL IV SCH (19:53)
[2020-02-08] MEDS: PIPERACILLIN/TAZOBACTAM 3.375 GM in DEXTROSE 5% 100 ML IV SCH ×2 (00:16→09:08)
[2020-02-08] MEDS: SODIUM CHLORIDE 0.9% 1000ML 1,000 ML IV SCH ×2 (00:16→11:04)
[2020-02-08] MEDS: METOPROLOL TARTRATE 1 MG/ML VIAL IV SCH ×4 (00:17→18:00)
[2020-02-08] MEDS: ENOXAPARIN 80 MG/0.8 ML SYR SQ SCH ×3 (00:17→15:32)
[2020-02-08] MEDS: INSULIN ASPART 100 UNITS/ML 3 ML PEN SC SCH ×4 (00:45→18:00)
[2020-02-08] MEDS ORDERED: VANCOMYCIN HCL 1,000 MG in SODIUM CHLORIDE 0.9% 250 ML IV SCH (06:00)
--- NOTE | 2020-02-08 07:59 | XRay Report ---
SINGLE VIEW CHEST CLINICAL HISTORY: Fever. Hypoxia. FINDINGS: An AP, portable, upright chest radiograph is compared to study dated 02/01/2020. The heart is mildly enlarged noting atherosclerotic calcification of the thoracic aorta. Multifocal airspace co nsolidation throughout both lungs is similar to previous. Small pleural effusions are suspected. No p neumothorax is seen. The skeletal structures are osteopenic. The bony thorax is grossly intact. IMPRESSION: Multifocal airspace consolidation has not significantly changed as compared to 02/01/2020 . ACT 112: Negative or not required by law. Electronically signed by: Nawaf Chanel M.D. 02/08/2020 7:58 AM
[2020-02-08] MEDS: THIAMINE HCL 100 MG in SYRINGE 9 ML IV SCH (09:07)
[2020-02-08] MEDS: INSULIN GLARGINE SOLOSTAR 100 UNITS/ML 3 ML PEN SC SCH ×2 (09:07→22:32)
[2020-02-08] MEDS: NYSTATIN SUSP 500,000 U/5 ML UDC PO SCH ×4 (09:07→22:30)
[2020-02-08 09:12] LABS: Basophils # (auto) 0.02 K/uL (0-0.2); Basophils % (auto) 0.2 %; Eosinophils # (auto) 0.34 K/uL (0-0.5); Eosinophils % (auto) 3.4 %; Hematocrit (blood only) 34.3 % (42-52); Hemoglobin 11.3 g/dL (14.0-18.0); Immature Granulocytes # (auto) 0.04 K/uL (0.00-0.02); Immature Granulocytes % (auto) 0.4 %; Lymphocytes # (auto) 1.53 K/uL (1.2-3.4); Lymphocytes % (auto) 15.2 %; Mean Corpuscular Hemoglobin 31.8 pg (25-34); Mean Corpuscular Hgb Conc 32.9 g/dL (32-36); Mean Corpuscular Volume 96.6 fL (80-100); Mean Platelet Volume 9.9 fL (7.4-10.4); Monocytes # (auto) 1.09 K/uL (0.11-0.59); Monocytes % (auto) 10.8 %; Neutrophils # (auto) 7.04 K/uL (1.4-6.5); Platelet Count 301 K/uL (130-400); RDW Coefficient of Variation 14.5 % (11.5-14.5); RDW Standard Deviation 51.1 fL (36.4-46.3); Red Blood Count 3.55 M/uL (4.7-6.1); White Blood Count 10.06 K/uL (4.8-10.8)
[2020-02-08 09:53] LABS: Albumin Level 1.8 gm/dl (3.4-5.0); BUN Creatinine Ratio 23.3 (10-20); Creatinine Clr Calc Pharmacy 39.9 ml/min; Est GFR (African American) 53.4; Magnesium 2.1 mg/dl (1.8-2.4)
[2020-02-08 09:57] LABS: Albumin Globulin Ratio 0.4 (0.9-2); Bilirubin,Total 0.7 mg/dl (0.2-1); Globulin 5.1 gm/dl (2.5-4.0); Phosphorus 3.8 mg/dl (2.5-4.9); Total Protein 6.9 gm/dl (6.4-8.2)
--- NOTE | 2020-02-08 14:18 | Pharmacy Report ---
Pharmacy Glycemic Short Note 2 - Date of Service February 08, 2020 - Glycemic Short BSG Results (Last 24 hours): 02/07/20 02/07/20 02/08/20 17:37 19:52 00:11 Glucose POC Glucose 165 H 136 H 129 H 02/08/20 02/08/20 02/08/20 05:55 09:03 11:37 Glucose 124 H POC Glucose 119 H 116 H OUTPATIENT ANTIDIABETIC REGIMEN: * amaryl, metformin, januvia * HbA1c: 9.7% (11/29/19) ASSESSMENT: 02/07: * PEG tube placement and PPN remain on hold. Preliminary BC reported no growth to date. * BSGs acceptable over the past 24 hours. Insulin needs decreased significantly without PPN on board (33 units/day -> 12 units/day) * Continue reduced dose of Lantus. 02/06: * PEG placement originally planned for today - now on hold * PPN placed on hold for Afib and rigors - will scale back on insulin considerab ly * Vancomycin and Zosyn started empirically for possible sepsis 02/05: * BSGs yesterday of 120, 135, 164, and 185 mg/dL * Received 20 units of Lantus, 3 units of bolus, and 17 units of IV insulin via TPN * Dextrose content of TPN will be increased to 90 g today -> will increase insulin in TPN to 20 units 01/28 * Patient received total of 58 units of insulin yesterday, of which 25 were basal insulin * Fasting BSG elevated at 292 mg/dL - follow Lantus scale for this AM * Nurse notified pharmacy later this morning that patient pulled out NG tube again / tube feeds stopped - d/c basal for HS PLAN FOR INPATIENT GLYCEMIC CONTROL: * Hold outpatient oral diabetes medications * Basal insulin * Lantus per scale SQ BID: * 0 units for BSG 180 mg/dL or less * 5 units for BSG greater than 180 mg/dL * Bolus insulin - continue * Novolog SQ Q 6 hrs * Goal range: 120 -160 mg/dL * Correction factor: 15 mg/dL/unit
--- NOTE | 2020-02-08 14:43 | Anesthesiology Consultation ---
Date of Service February 08, 2020 Assessment & Plan (1) Encounter for pre-operative examination: Chart Review Chart Review: Acceptable Risk for Surgery and Patient NOT seen in Pre Admission Testing Cardiology note 02/07/2020: (1) Atrial fibrillation: It is difficult to determine the exact mechanism of the patient's arrhythmia. It certainly appears to be atrial fibrillation at times although I think a multifocal atrial tachycardia would also be a possibility. He appears to have some brief episodes of sinus rhythm marked by frequent and consecutive atrial ectopy. Over the past few days his overall rate control has been adequate without any specific rate control agents. He has been unable to take any oral medications due to concerns over swallowing and aspiration. This morning's episode was likely precipitated by transient bacteremia and fever . The patient appeared to have rigors. He is known to have a sacral decubitus ulcer. This would represent a possible source of transient bacteremia. He did not have a documented temperature at that time but his heart rate and symptoms appear to respond to Tylenol. He was administered metoprolol in this time frame as well. I think the best option moving forward is simply to re-initiate therapy with beta-blockade. While he is unable to take oral medications we can administer scheduled metoprolol. Once a PEG tube or other means for delivering or medications has been established we can resume his outpatient medical regimen which includes carvedilol. He does have an element of conduction disease with a right bundle branch block and left anterior fascicular block. We will need to be cautious with institution of anti rhythmics if necessary. (2) CAD (coronary artery disease): He is known to have extensive coronary disease. He has previously undergone percutaneous intervention on more than 1 occasion. Stents to the LAD and RCA. This hospitalization is not appear to involve an acute coronary syndrome or evidence of coronary insufficiency. Ideally he would be back on his usual outpatient medical regimen which consists of aspirin atorvastatin and carvedilol. (3) Peripheral arterial disease: Patient underwent RONAK testing earlier this year which revealed significant occlusive disease involving the left leg. Will need to monitor for evidence of ischemia PATIENT WAS POSITIVE FOR COVID 01/08/2020 AND ALSO 01/12/2020. NEGATIVE COVID TEST 02/02/2020 AND HAS BEEN REMOVED FROM AIRBORN PRECAUTIONS. Consults Requested none History Surgery Operation Date: 02/02/20 16:15 Proposed Procedures p Esophagogastroduodenoscopy Dr Javon Alejandro DO Operation Date: 02/03/20 16:00 Proposed Procedures p Esophagogastroduodenoscopy Dr Javon Alejandro, DO s Peg Tube Placement Dr Javon Alejandro, Operation Date: 02/07/20 16:30 Proposed Procedures p Esophagogastroduodenoscopy Dr Javon Alejandro, DO s Peg Tube Placement Dr Javon Alejandro, Operation Date: 02/08/20 11:30 Proposed Procedures p Esophagogastroduodenoscopy with - Frantz Adler MD s PEG Tube Placement - Frantz Adler MD Height/Weight Height: 5 ft 11 in Weight: 74.2 kg Allergies Allergy/AdvReac Type Severity Reaction Status Date / Time No Known Drug Allergies Allergy Verified 01/12/20 14:39 Medications Home Medications Medication Instructions Recorded Confirmed Last Taken aspirin 81 mg tablet,delayed 81 mg PO QAM 03/12/18 01/12/20 01/08/20 release clonidine HCl 0.1 mg tablet 0.1 mg PO DAILY PRN tab 11/04/18 01/12/20 Unknown pantoprazole 40 mg tablet,delayed 40 mg PO BID #180 tab 02/24/19 01/12/20 01/08/20 release carvedilol 25 mg tablet 25 mg PO BID #180 tab 05/06/19 01/12/20 01/08/20 metformin 1,000 mg tablet 1,000 mg PO BID #180 tab 05/17/19 01/12/20 01/08/20 atorvastatin 80 mg tablet 80 mg PO HS #90 tab 06/21/19 01/12/20 01/07/20 glimepiride 4 mg tablet 4 mg PO BID #180 tab 08/04/19 01/12/20 01/08/20 Januvia 25 mg PO HS 01/08/20 01/12/20 01/07/20 ondansetron HCl [Zofran] 4 mg PO Q8H PRN 5 Days #20 tab 01/09/20 01/12/20 Unknown Active Medications Generic Name Dose Route Start Last Admin Trade Name Freq PRN Reason Stop Dose Admin Enoxaparin Sodium 70 mg 02/07/20 22:00 02/08/20 10:30 Enoxaparin 80 Mg/0.8 Ml Syr SQ 03/08/20 21:59 70 mg Q12H DERICK Administration Glucose 15 - 30 gm 01/14/20 11:45 01/19/20 08:54 Glucose 40% Gel 15 Gm Tube PO 02/13/20 11:44 15 gm UD PRN Administration Hypoglycemia Protocol Protocol Hydralazine HCl 10 mg 01/14/20 20:56 01/23/20 16:44 Hydralazine Hcl 20 Mg/Ml Vial IV 02/13/20 20:55 10 mg Q8H PRN Administration SBP>180 Thiamine HCl 100 mg/ Syringe 10 mls @ 2 mls/min 02/03/20 11:30 02/08/20 09:07 IV 03/04/20 11:29 2 mls/min QAM DERICK Administration Sodium Chloride 1,000 mls @ 60 mls/hr 02/07/20 21:45 02/08/20 11:04 Nss 1000ml IV 02/08/20 16:00 60 mls/hr .[id number] DERICK Administration Insulin Aspart 0 units 02/02/20 12:00 02/08/20 12:05 Insulin Aspart 100 Units/Ml 3 Ml Pen SC 03/03/20 11:59 Not Given Q6 DERICK Insulin Glargine 0 units 02/05/20 21:00 02/08/20 09:07 Insulin Glargine Solostar 100 Units/Ml 3 Ml Pen SC 03/04/20 20:59 Not Given BID DERICK Protocol Metoprolol Tartrate 5 mg 02/07/20 18:00 02/08/20 13:15 Metoprolol Tartrate 1 Mg/Ml Vial IV 03/08/20 17:59 5 mg Q6 DERICK Administration Miscellaneous 15 - 30 gm 01/14/20 11:45 01/19/20 08:45 Carbohydrates For Hypoglycemia PO 02/13/20 11:44 15 gm UD PRN Administration Hypoglycemia Treatment Nystatin 5 ml 02/07/20 13:00 02/08/20 13:15 Nystatin Susp 500,000 U/5 Ml Udc PO 02/17/20 12:59 5 ml QID DERICK Administration Ondansetron HCl 4 mg 01/12/20 19:07 02/02/20 22:25 Ondansetron Inj 2 Mg/Ml 2 Ml Vial IV 02/11/20 19:06 4 mg Q6H PRN Administration Nausea Past Medical History Medical History Actinic keratosis Anaplasmosis Atrial premature complex Benign localized prostatic hyperplasia with lower urinary tract symptoms (LUTS) BMI 29.0-29.9,adult CAD (coronary artery disease) Chews tobacco regularly CKD (chronic kidney disease), stage III Constipation Depression Diabetes mellitus Diabetic nephropathy Diabetic peripheral neuropathy Dieulafoy lesion of stomach Erythematous papules of skin Gastritis GERD (gastroesophageal reflux disease) Helicobacter pylori ab+ (10/27/13) Hiatal hernia History of SCC (squamous cell carcinoma) of skin Hypertension Rhabdomyolysis SI joint arthritis Trochanteric bursitis Type 2 diabetes mellitus Unilateral primary osteoarthritis, left hip Urinary hesitancy Visual impairment Vitamin D deficiency Past Family History Family History Unknown Diabetes Coronary heart disease Father Prostate cancer Past Surgical History Surgical History History of appendectomy History of colonoscopy History of transurethral resection of prostate Past Anesthesia History No Hx of Anesthesia Complications and No Family Hx of Anesthesia Complications History of PONV No Hx of PONV and No Hx of Motion Sickness Social History Smoking Status: Never smoker tobacco type: smokeless tobacco Do You Dip or Chew Tobacco: Yes Hx Alcohol Use: No Hx Substance Use: No substance use type: does not use Physical Exam Vital Signs Last Vital Signs Temp 36.8 C 02/08/20 12:12 Pulse 124 H 02/08/20 13:15 Resp 18 02/08/20 12:12 BP 124/64 02/08/20 13:15 Pulse Ox 98 02/08/20 12:12 Testing Laboratory Results 02/08/20 09:03 02/08/20 09:03 PT 11.7 Seconds (9.0-12.0) 01/12/20 13:22 INR 1.1 (0.9-1.1) 01/12/20 13:22 APTT 33.2 Seconds (21.0-31.0) H 01/12/20 13:22 Urine Color Dark Yellow 01/12/20 18:26 Urine Appearance Cloudy (Clear) A 01/12/20 18:26 Urine pH 5.0 (4.5-7.5) 01/12/20 18:26 Ur Specific [place] 1.023 (1.000-1.030) 01/12/20 18:26 Urine Protein 3+ (Negative) H 01/12/20 18:26 Urine Glucose (UA) 2+ (Negative) H 01/12/20 18:26 Urine Ketones Trace (Negative) H 01/12/20 18:26 Urine Nitrite Negative (Negative) 01/12/20 18:26 Ur Leukocyte Esterase Negative (Negative) 01/12/20 18:26 Urine WBC (Auto) 1-5 /hpf (0-5) 01/12/20 18:26 Urine RBC (Auto) 0-4 /hpf (0-4) 01/12/20 18:26 U Hyaline Cast (Auto) 1-5 /lpf (0-5) 01/12/20 18:26 U Epithel Cells (Auto) 20-30 /lpf (0-5) H 01/12/20 18:26 Urine Bacteria (Auto) Negative (Negative) 01/12/20 18:26 Blood Type AB Positive 01/12/20 16:30 Antibody Screen NEGATIVE 01/12/20 16:30 02/07/20 08:34 Aerobic Blood Culture - Preliminary Blood No growth in Aerobic bottle after 24 hours. 02/07/20 08:43 Aerobic Blood Culture - Preliminary Blood No growth in Aerobic bottle after 24 hours. 02/07/20 11:47 Gram Stain - Final Coccyx Decubitus Deep Wound Culture - Preliminary Pin-point growth present, reincubating. 01/12/20 13:22 Aerobic Blood Culture - Final Blood No growth in Aerobic bottle after 5 days. Anaerobic Blood Culture - Final No growth in Anaerobic bottle after 5 days. 01/12/20 13:22 Aerobic Blood Culture - Final Blood No growth in Aerobic bottle after 5 days. Anaerobic Blood Culture - Final No growth in Anaerobic bottle after 5 days. 01/12/20 18:26 Urine Culture - Final Urine,Clean Catch More than three types of organisms present, all moderate counts mixed probable skin sam. No further identifications or sensitivities to follow. 02/08/20 02/08/20 11:37 05:55 POC Glucose 116 H 119 H Electrocardiogram Date: 02/07/20 DICTATED BY: Jose Maldonado MD Test Reason : Blood Pressure : / mmHG Vent. Rate : 147 BPM Atrial Rate : 113 BPM P-R Int : 000 ms QRS Dur : 126 ms QT Int : 318 ms P-R-T Axes : 000 -80 035 degrees QTc Int : 497 ms Likely atrial fibrillation Right bundle branch block Left anterior fascicular block Bifascicular block Minimal voltage criteria for LVH, may be normal variant Abnormal ECG When compared with ECG of 01-FEB-2020 14:00, ST now depressed in Anterior leads Confirmed by Jose Maldonado ([id number]) on 02/07/2020 6:31:39 PM Chest X-Ray Date: 02/01/20 XR chest 1V portable CLINICAL HISTORY: hypoxia COMPARISON STUDY: 01/31/2020 FINDINGS: The heart remains enlarged. There are persistent bilateral pulmonary airspace opacities consistent with a multifocal pneumonia. There is no overt failure. There are no large pleural effusions.[ IMPRESSION: Persistent multifocal airspace opacities, consistent with a multifocal pneumonia Echocardiogram Date: 10/30/18 LVH. Mild AR. No . EF 55-60%
--- NOTE | 2020-02-08 15:14 | History & Physical Report ---
Date of Service February 08, 2020 Assessment & Plan Admission and Anticipated Discharge Date Admission Date: January 12, 2020 History of Present Illness Primary Care Provider: Miguel Olivares MD Unable to swallow. On abx. CV: IRIR Abd: soft, no scars Labs reviewed - last INR was 12/3. A/P: Proceed with PEG tube today. Allergies Allergy/AdvReac Type Severity Reaction Status Date / Time No Known Drug Allergies Allergy Verified 01/12/20 14:39 Home Medications Medication Instructions Recorded Confirmed Type aspirin 81 mg tablet,delayed 81 mg PO QAM 03/12/18 01/12/20 History release clonidine HCl 0.1 mg tablet 0.1 mg PO DAILY PRN tab 11/04/18 01/12/20 History pantoprazole 40 mg tablet,delayed 40 mg PO BID #180 tab 02/24/19 01/12/20 Rx release carvedilol 25 mg tablet 25 mg PO BID #180 tab 05/06/19 01/12/20 Rx metformin 1,000 mg tablet 1,000 mg PO BID #180 tab 05/17/19 01/12/20 Rx atorvastatin 80 mg tablet 80 mg PO HS #90 tab 06/21/19 01/12/20 Rx glimepiride 4 mg tablet 4 mg PO BID #180 tab 08/04/19 01/12/20 Rx Januvia 25 mg PO HS 01/08/20 01/12/20 History ondansetron HCl [Zofran] 4 mg PO Q8H PRN 5 Days #20 tab 01/09/20 01/12/20 Rx Past Med/Surg History Medical History Actinic keratosis Anaplasmosis Atrial premature complex Benign localized prostatic hyperplasia with lower urinary tract symptoms (LUTS) BMI 29.0-29.9,adult CAD (coronary artery disease) Chews tobacco regularly CKD (chronic kidney disease), stage III Constipation Depression Diabetes mellitus Diabetic nephropathy Diabetic peripheral neuropathy Dieulafoy lesion of stomach Erythematous papules of skin Gastritis GERD (gastroesophageal reflux disease) Helicobacter pylori ab+ (10/27/13) Hiatal hernia History of SCC (squamous cell carcinoma) of skin Hypertension Rhabdomyolysis SI joint arthritis Trochanteric bursitis Type 2 diabetes mellitus Unilateral primary osteoarthritis, left hip Urinary hesitancy Visual impairment Vitamin D deficiency Surgical History History of appendectomy History of colonoscopy History of transurethral resection of prostate Family History Unknown Diabetes Coronary heart disease Father Prostate cancer Social History Smoking Status: Never smoker Tobacco Type: Smokeless Tobacco (Dip or Chew) Age Started Using Tobacco: 22; Second Hand Exposure: No; Hx Alcohol Use: No Hx Substance Use: No Preferred Language: Citizen Of [place] Communication Ability: Effective Hearing Ability: Use of Hearing Aid 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7 C 96 H 18 93/52 L 02/08/20 13:15 124 H 124/64 02/08/20 12:12 36.8 C 99 H 18 124/64 02/08/20 08:21 36.5 C 81 18 102/51 L 02/08/20 06:03 86 107/65 Pulse Ox 02/08/20 15:00 92 02/08/20 13:15 02/08/20 12:12 98 02/08/20 08:21 96 02/08/20 06:03 Code Status & VTE Plan VTE Prophylaxis Plan VTE Prophylaxis will be ordered: Yes
[2020-02-08] MEDS ORDERED: LIDOCAINE 2% 2 ML VIAL/AMP(20MG/ML) INFIL ONE (15:22)
[2020-02-08] MEDS ORDERED: fentaNYL citrate 100 MCG/2 ML VIAL ONE (15:22)
[2020-02-08] MEDS ORDERED: PROPOFOL IV EMULSION 10 MG/ML 20 ML VIAL IV ONE (15:22)
[2020-02-08] MEDS ORDERED: fentaNYL citrate 100 MCG/2 ML VIAL IV PRN (15:23)
[2020-02-08] MEDS ORDERED: ONDANSETRON INJ 2 MG/ML 2 ML VIAL IV PRN (15:23)
[2020-02-08] MEDS ORDERED: ATROPINE SULFATE 0.1 MG/ML 10ML SYR IV PRN (15:23)
[2020-02-08] MEDS ORDERED: ePHEDrine sulfate 50 MG/ML AMP IV PRN (15:23)
[2020-02-08] MEDS ORDERED: LABETALOL HCL IV 5 MG/ML 20ML IV PRN (15:23)
[2020-02-08] MEDS ORDERED: PHENYLEPHRINE 100MCG/ML 5ML SYR IV PRN (15:23)
[2020-02-08] MEDS: CEFEPIME 2,000 MG in SYRINGE 0 ML IV SCH (16:10)
--- NOTE | 2020-02-08 19:28 | Hospitalist Progress Note ---
Date of Service February 08, 2020 Assessment & Plan (1) Atrial fibrillation: new diagnosis on 01/31 Afterwards, had sinus with PACs and some brief runs of afib for many days with rates in the 70s-80s without any rate control Went back into rapid atrial fibrillation with rates as high as the 180s on the morning of 02/06 in response to having rigors and a fever Improved rate control with IV Lopressor scheduled 5 mg every 6 hours Appreciate cardiology consultation He has a bifascicular block and amiodarone would not be a good option at this time Restart therapeutic Lovenox once PEG tube placement completed -Can also start metoprolol tablets through PEG tube once placed (2) Sacral decubitus ulcer: Unstageable Nurse noted foul odor Wound culture taken-pinpoint growth -Follow blood cultures May be the source of his fevers and rigors today Continue wound care, offload pressure (3) Fever: With rigors and fever to 37.6 on the morning of 02/06 IV Tylenol given. No further fevers today Could be from worsening sacral decubitus ulcer with foul-smelling wound culture with pinpoint growth Procalcitonin significantly elevated at 6 Continue empiric Zosyn and vancomycin Follow blood cultures-no growth to date Follow CBC (4) Dysphagia: - Completed courses of Diflucan 100mg IV & Nystatin QID mouth swab, mouth looks much better, still very dry-restart nystatin - VICE PROVOST evaluated on 01/26. He held food and water in his mouth, but could not transfer posteriorly or swallow -he had the same findings on 01/30, coughed back up applesauce and water -one last evaluation with speech therapy on 02/01, he wanted a vanilla milkshake he was unable to transfer food / liquid bolus to back of throat very sad, he sad he was trying to swallow, he just can't do it keep NPO as high aspiration risk plan for PEG tube was postponed on 02/06 due to rapid atrial fibrillation and fever Plan for PEG tube again on 02/07-again delayed due to patient losing IV access and became too late in the day Plan for PEG tube placement hopefully on 02/08 -Continue to hold PPN for now due to fever/rigors/sepsis work-up Continue normal saline at 70 mL/h for hydration (5) Refeeding syndrome: occurred afternoon on 01/31 was on PPN, signs/symptoms included sudden dyspnea, hypoxia, atrial fibrillation gave Lasix 40mg IV, stopped PPN, moved to PCU He was completely stable for many days resumed PPN on 02/02 at lower rate of 60mL/hr and lower total volume daily of 1500mL and was tolerating well until had a recurrence of same symptoms on 02/06 which may be secondary to fever as above PEG tube placement postponed twice now as above After PEG tube placed, will restart tube feeds at a trickle rate, will appreciate any dietary input (6) Acute respiratory failure with hypoxemia: sudden desaturation in afternoon on 01/31 with hypoxemia requiring 15L oxymask and BIPAP briefly CXR only showed persistent infiltrates BNP was not markedly elevated he was also in afib with RVR at the time most likely explanation was refeeding syndrome as he was getting PPN for about 24 hours prior to this happening refeeding syndrome can cause hypoxia, volume overload, arrhythmias moved to PCU since that time Had a recurrent exact episode on 02/06 of rapid atrial fibrillation and hypoxia as above. Is now weaned down to 4 L Chest x-ray with persistent bilateral airspace opacities not worse than previous Treating empirically with Zosyn and vancomycin which would cover for bacterial pneumonia Continue to wean off oxygen (7) Urinary retention: dennis pulled 02/02 since he was alert and communicating, getting OOB to chair he became agitated, swinging at nurses and staff on 02/02 and 02/03 straight cath for 600mL Replaced dennis catheter on 02/03 as he will likely continue to retain and will be a source of agitation can follow up with urology as outpatient, keep dennis on discharge -We will plan to add tamsulosin once PEG tube placed (8) Goals of care, counseling/discussion: long discussion with family regarding goals of care on 01/29 and 01/30 and 02/01 by previous hospitalist they want him to get nutrition at this point, short term goal of improving nutrition to help improve strength they are on board with consult for GI for PEG tube as he pulled out NG tube twice they want him to come home but also want him to get stronger Patient wants to go home, however family wants to see how he does after he starts on tube feeds but think that they will be able to bring him home with 02/09 care and home health Now PEG tube placement postponed as above, not able to get nutrition Discussed with family again on 02/06 and 02/07-this does not miguel well for his prognosis (9) Metabolic encephalopathy: Due to COVID 19, delirium-improved significantly overall compared to previous descriptions of pulling out multiple lines/tubes and having to wear mitts as well as receiving Ativan He is now been mentating fairly well for the last 4-5 days - Continue treatment with redirection, supportive care, Dennis catheter for urinary retention -Also had no documented bowel movement in 23 days although doubt this is true. He now had a bowel movement on 02/04 and 02/07 (10) Pneumonia due to COVID-19 virus: Chest x-ray on admission had progressed significantly since his previous hospital stay a few days prior. Now back on oxygen as above He did not receive remdesivir due to renal insufficiency and he was 10+ days out from illness when he presented. repeat rapid COVID is NEGATIVE and he is off precautions Chest x-ray with persistent bilateral airspace opacities-treating empirically with Zosyn and vancomycin as above and could have bacterial pneumonia Procalcitonin is elevated at 6 Follow CBC, procalcitonin in the morning (11) CKD (chronic kidney disease), stage III: Baseline CrCL 30s/40s. - Cr is stable -Avoid nephrotoxins -renally dose meds when appropriate -follow BMP (12) Coronary artery disease: No evidence of ACS, has a history of stents placed in 2019. -Home meds of Coreg, ASA, statin all on hold while n.p.o. IV metoprolol scheduled Plan restart home meds once PEG tube placed (13) Type 2 diabetes mellitus: Pharmacy glycemic consult placed. - Holding oral agents - Continue insulin as per pharmacy (14) Hypertension: BP normal to mildly low today unable to take medications PO Now on scheduled IV Lopressor (15) Hypernatremia: due to poor volume intake, now resolved PPN on hold On normal saline (16) DVT prophylaxis: Lovenox 1mg/kg BID due to afib is on hold for PEG tube placement which got canceled today. Restart therapeutic Lovenox dosing after PEG tube placed when okay with GI Disposition-continued stay on PCU Condition is guarded as discussed with davida Crane on the phone today Remains full code Palliative care is following Admission and Anticipated Discharge Date Admission Date: January 12, 2020 Subjective Patient denies chest pain or shortness of breath today. He is feeling better than yesterday. No further rigors or fevers. Unfortunately, he pulled out his peripheral IV right before he was to go down for PEG tube placement today. Anesthesia was finally able to get a peripheral IV site as he is a difficult stick, but then his procedure was canceled. I discussed his care with the director smb sales, the anesthesiologist. Telemetry with brief paroxysms of atrial fibrillation followed by sinus tachycardia with PACs, rates are in the 100s to 120s. Review of Systems Review of Systems: All systems reviewed & are unremarkable except as noted in HPI & below Physical Exam Constitutional: WD/WN, vitals as above + ill appearing; no acute distress Eyes: + anicteric sclerae ENMT: Mouth: + oropharynx abnormality (Very dry) Neck: trachea midline, no thyromegaly Respiratory: normal respiratory effort, lungs clear to auscultation Cardiovascular: Rate/Rhythm: + tachycardic (Mild) and + irregularly irregular Heart Sounds: no murmur Extremities: no edema Chest (Breasts): Chest: normal inspection of chest Gastrointestinal (Abdomen): normal bowel sounds, soft, nontender, no hepatosplenomegaly Musculoskeletal: Extremities: extremities normal to inspection; no cyanosis an d no clubbing Skin: no rashes, warm and dry + ecchymosis (Numerous all over arms) Neurologic: moves all extremities and awake; no focal motor deficits Psychiatric: Orientation: alert and cooperative Lymphatic: no lymphedema Results & Data Results & Data ([facility]) Vital Signs (Past 12 Hours) Vital Signs Temp Pulse Pulse Resp BP BP BP 02/08/20 19:03 36.4 C L 82 18 105/60 02/08/20 18:44 36.8 C 107 H 20 114/65 02/08/20 16:15 37.1 C 101 H 18 112/73 02/08/20 15:00 36.7 C 96 H 18 93/52 L 02/08/20 13:15 124 H 124/64 02/08/20 12:12 36.8 C 99 H 18 124/64 02/08/20 08:21 36.5 C 81 18 102/51 L Pulse Ox 02/08/20 19:03 96 02/08/20 18:44 97 02/08/20 16:15 97 02/08/20 15:00 92 02/08/20 13:15 02/08/20 12:12 98 02/08/20 08:21 96 Laboratory Results 02/08/20 02/08/20 02/08/20 Range/Units 11:37 09:03 09:03 WBC (4.8-10.8) K/uL RBC (4.7-6.1) M/uL Hgb (14.0-18.0) g/dL Hct (42-52) % MCV (80-100) fL MCH (25-34) pg MCHC (32-36) g/dL RDW Std Deviation (36.4-46.3) fL RDW Coeff of Allie (11.5-14.5) % Plt Count (130-400) K/uL MPV (7.4-10.4) fL Immature Gran % (Auto) % Neut % (Auto) % Lymph % (Auto) % [place] % (Auto) % Eos % (Auto) % Baso % (Auto) % Neut # (Auto) (1.4-6.5) K/uL Lymph # (Auto) (1.2-3.4) K/uL [place] # (Auto) (0.11-0.59) K/uL Eos # (Auto) (0-0.5) K/uL Baso # (Auto) (0-0.2) K/uL Immature Gran # (Auto) (0.00-0.02) K/uL Sodium 143 (136-145) mmol/L Potassium 4.0 (3.5-5.1) mmol/L Chloride 113 H (98-107) mmol/L Carbon Dioxide 27 (21-32) mmol/L Anion Gap 3.0 (3-11) BUN 32 H (7-18) mg/dl Creatinine 1.37 (0.6-1.4) mg/dl Est Cr Clr Drug Dosing 39.9 ml/min Est GFR ( Amer) 53.4 Est GFR (Non-Af Amer) 46.0 BUN/Creatinine Ratio 23.3 H (10-20) Glucose 124 H (70-99) mg/dl POC Glucose 116 H (70-99) mg/dl Calcium 8.0 L (8.5-10.1) mg/dl Phosphorus 3.8 (2.5-4.9) mg/dl Magnesium 2.1 (1.8-2.4) mg/dl Total Bilirubin 0.7 (0.2-1) mg/dl AST 38 H (15-37) U/L ALT 25 (12-78) U/L Alkaline Phosphatase 80 (45-117) U/L Total Protein 6.9 (6.4-8.2) gm/dl Albumin 1.8 L (3.4-5.0) gm/dl Globulin 5.1 H (2.5-4.0) gm/dl Albumin/Globulin Ratio 0.4 L (0.9-2) Procalcitonin 6.04 H (0-0.5) ng/ml 02/08/20 02/08/20 02/08/20 Range/Units 09:03 05:55 00:11 WBC 10.06 (4.8-10.8) K/uL RBC 3.55 L (4.7-6.1) M/uL Hgb 11.3 L (14.0-18.0) g/dL Hct 34.3 L (42-52) % MCV 96.6 (80-100) fL MCH 31.8 (25-34) pg MCHC 32.9 (32-36) g/dL RDW Std Deviation 51.1 H (36.4-46.3) fL RDW Coeff of Allie 14.5 (11.5-14.5) % Plt Count 301 (130-400) K/uL MPV 9.9 (7.4-10.4) fL Immature Gran % (Auto) 0.4 % Neut % (Auto) 70.0 % Lymph % (Auto) 15.2 % [place] % (Auto) 10.8 % Eos % (Auto) 3.4 % Baso % (Auto) 0.2 % Neut # (Auto) 7.04 H (1.4-6.5) K/uL Lymph # (Auto) 1.53 (1.2-3.4) K/uL [place] # (Auto) 1.09 H (0.11-0.59) K/uL Eos # (Auto) 0.34 (0-0.5) K/uL Baso # (Auto) 0.02 (0-0.2) K/uL Immature Gran # (Auto) 0.04 H (0.00-0.02) K/uL Sodium (136-145) mmol/L Potassium (3.5-5.1) mmol/L Chloride (98-107) mmol/L Carbon Dioxide (21-32) mmol/L Anion Gap (3-11) BUN (7-18) mg/dl Creatinine (0.6-1.4) mg/dl Est Cr Clr Drug Dosing ml/min Est GFR ( Amer) Est GFR (Non-Af Amer) BUN/Creatinine Ratio (10-20) Glucose (70-99) mg/dl POC Glucose 119 H 129 H (70-99) mg/dl Calcium (8.5-10.1) mg/dl Phosphorus (2.5-4.9) mg/dl Magnesium (1.8-2.4) mg/dl Total Bilirubin (0.2-1) mg/dl AST (15-37) U/L ALT (12-78) U/L Alkaline Phosphatase (45-117) U/L Total Protein (6.4-8.2) gm/dl Albumin (3.4-5.0) gm/dl Globulin (2.5-4.0) gm/dl Albumin/Globulin Ratio (0.9-2) Procalcitonin (0-0.5) ng/ml PG Care Time/CCT Total # of Minutes Spent Total Time Spent with Patient: Total time spent is greater than 50% in coordination of care (as documented) at patient's floor/unit and/or counseling patient: Coding Level of Care Code 59221 Subseq Hosp Care Lvl 3 Diagnoses Atrial fibrillation I48.91 Sacral decubitus ulcer L89.159 Fever R50.9 Dysphagia R13.10 Refeeding syndrome E87.8 Acute respiratory failure with hypoxemia J96.01 Urinary retention R33.9 Goals of care, counseling/discussion Z71.89 Metabolic encephalopathy G93.41 Pneumonia due to COVID-19 virus U07.1; J12.89 CKD (chronic kidney disease), stage III N18.3 Coronary artery disease I25.10 Associated angina: without angina Coronary Disease-Associated Artery/Lesion type: [place] artery [place] vs. transplanted heart: [place] heart Type 2 diabetes mellitus E11.22; N18.3 Chronic kidney disease stage: stage 3 (moderate) Diabetes mellitus complication detail: with chronic kidney disease Diabetes mellitus complication status: with kidney complications Diabetes mellitus usp insulin use: without usp use Hypertension I10 Hypertension type: essential hypertension Hypernatremia E87.0 DVT prophylaxis Z29.9 (1) Type 2 diabetes mellitus Chronic kidney disease stage: stage 3 (moderate) Diabetes mellitus complication detail: with chronic kidney disease Diabetes mellitus complication status: with kidney complications Diabetes mellitus intermediate card tender insulin use: without intermediate card tender use Qualified Code(s): E11.22 - Type 2 diabetes mellitus with diabetic chronic kidney disease; N18.3 - Chronic kidney disease, stage 3 (moderate) (2) Coronary artery disease Associated angina: without angina Coronary Disease-Associated Artery/Lesion type: [place] artery [place] vs. transplanted heart: [place] heart Qualified Code(s): I25.10 - Atherosclerotic heart disease of [place] coronary artery without angina pectoris (3) Hypertension Hypertension type: essential hypertension Qualified Code(s): I10 - Essential (primary) hypertension
[2020-02-09] MEDS: INSULIN ASPART 100 UNITS/ML 3 ML PEN SC SCH ×4 (00:43→18:36)
[2020-02-09] MEDS: METOPROLOL TARTRATE 1 MG/ML VIAL IV SCH ×4 (00:56→18:33)
[2020-02-09] MEDS: CEFEPIME 2,000 MG in SYRINGE 0 ML IV SCH ×2 (04:55→16:17)
[2020-02-09] MEDS ORDERED: VANCOMYCIN HCL 1,000 MG in SODIUM CHLORIDE 0.9% 250 ML IV SCH (06:00)
[2020-02-09 06:44] LABS: Basophils # (auto) 0.02 K/uL (0-0.2); Basophils % (auto) 0.2 %; Eosinophils % (auto) 5.9 %; Hematocrit (blood only) 34.5 % (42-52); Hemoglobin 10.9 g/dL (14.0-18.0); Immature Granulocytes # (auto) 0.05 K/uL (0.00-0.02); Immature Granulocytes % (auto) 0.6 %; Lymphocytes % (auto) 17.6 %; Mean Corpuscular Hemoglobin 31.3 pg (25-34); Mean Corpuscular Hgb Conc 31.6 g/dL (32-36); Mean Corpuscular Volume 99.1 fL (80-100); Mean Platelet Volume 10.1 fL (7.4-10.4); Monocytes # (auto) 1.03 K/uL (0.11-0.59); Monocytes % (auto) 12.1 %; Neutrophils # (auto) 5.44 K/uL (1.4-6.5); Neutrophils % (auto) 63.6 %; Platelet Count 303 K/uL (130-400); RDW Coefficient of Variation 14.8 % (11.5-14.5); RDW Standard Deviation 52.6 fL (36.4-46.3); Red Blood Count 3.48 M/uL (4.7-6.1); White Blood Count 8.54 K/uL (4.8-10.8)
[2020-02-09 07:14] LABS: Albumin Level 1.8 gm/dl (3.4-5.0); BUN Creatinine Ratio 26.5 (10-20); Calcium 8.2 mg/dl (8.5-10.1); Creatinine Clr Calc Pharmacy 46.7 ml/min; Est GFR (African American) 64.6; Est GFR (Non-African American) 55.7; Magnesium 2.3 mg/dl (1.8-2.4)
[2020-02-09 07:17] LABS: Albumin Globulin Ratio 0.4 (0.9-2); Bilirubin,Total 0.5 mg/dl (0.2-1); Globulin 5.1 gm/dl (2.5-4.0); Phosphorus 3.6 mg/dl (2.5-4.9); Total Protein 6.9 gm/dl (6.4-8.2)
[2020-02-09] MEDS: NYSTATIN SUSP 500,000 U/5 ML UDC PO SCH ×4 (09:44→19:21)
[2020-02-09] MEDS: THIAMINE HCL 100 MG in SYRINGE 9 ML IV SCH (09:44)
[2020-02-09] MEDS: INSULIN GLARGINE SOLOSTAR 100 UNITS/ML 3 ML PEN SC SCH ×2 (09:45→20:38)
[2020-02-09] MEDS ORDERED: LIDOCAINE 2% 2 ML VIAL/AMP(20MG/ML) INFIL ONE ×2 (12:20)
[2020-02-09] MEDS ORDERED: PROPOFOL IV EMULSION 10 MG/ML 20 ML VIAL IV ONE (12:20)
[2020-02-09] MEDS ORDERED: ceFAZolin 1000MG 1,000 MG/7.5 ML SYR IV ONE (12:25)
[2020-02-09] MEDS ORDERED: fentaNYL citrate 100 MCG/2 ML VIAL IV PRN (12:26)
[2020-02-09] MEDS ORDERED: ATROPINE SULFATE 0.1 MG/ML 10ML SYR IV PRN (12:26)
[2020-02-09] MEDS ORDERED: ONDANSETRON INJ 2 MG/ML 2 ML VIAL IV PRN (12:26)
[2020-02-09] MEDS ORDERED: ePHEDrine sulfate 50 MG/ML AMP IV PRN (12:26)
--- NOTE | 2020-02-09 12:28 | History & Physical Report ---
Date of Service February 09, 2020 Assessment & Plan (1) Dysphagia: PEG in OR today Ancef to be given Admission and Anticipated Discharge Date Admission Date: January 12, 2020 History of Present Illness Chief Complaint: inability to eat/swallow safely by mouth following prolonged hospitalization Primary Care Provider: Miguel Olivares MD inability to eat/swallow safely by mouth following prolonged hospitalization Allergies Allergy/AdvReac Type Severity Reaction Status Date / Time No Known Drug Allergies Allergy Verified 01/12/20 14:39 Home Medications Medication Instructions Recorded Confirmed Type aspirin 81 mg tablet,delayed 81 mg PO QAM 03/12/18 01/12/20 History release clonidine HCl 0.1 mg tablet 0.1 mg PO DAILY PRN tab 11/04/18 01/12/20 History pantoprazole 40 mg tablet,delayed 40 mg PO BID #180 tab 02/24/19 01/12/20 Rx release carvedilol 25 mg tablet 25 mg PO BID #180 tab 05/06/19 01/12/20 Rx metformin 1,000 mg tablet 1,000 mg PO BID #180 tab 05/17/19 01/12/20 Rx atorvastatin 80 mg tablet 80 mg PO HS #90 tab 06/21/19 01/12/20 Rx glimepiride 4 mg tablet 4 mg PO BID #180 tab 08/04/19 01/12/20 Rx Januvia 25 mg PO HS 01/08/20 01/12/20 History ondansetron HCl [Zofran] 4 mg PO Q8H PRN 5 Days #20 tab 01/09/20 01/12/20 Rx Past Med/Surg History Medical History Actinic keratosis Anaplasmosis Atrial premature complex Benign localized prostatic hyperplasia with lower urinary tract symptoms (LUTS) BMI 29.0-29.9,adult CAD (coronary artery disease) Chews tobacco regularly CKD (chronic kidney disease), stage III Constipation Depression Diabetes mellitus Diabetic nephropathy Diabetic peripheral neuropathy [place] lesion of stomach Erythematous papules of skin Gastritis GERD (gastroesophageal reflux disease) Helicobacter pylori ab+ (10/27/13) Hiatal hernia History of SCC (squamous cell carcinoma) of skin Hypertension Rhabdomyolysis SI joint arthritis Trochanteric bursitis Type 2 diabetes mellitus Unilateral primary osteoarthritis, left hip Urinary hesitancy Visual impairment Vitamin D deficiency Surgical History History of appendectomy History of colonoscopy History of transurethral resection of prostate Family History Unknown Diabetes Coronary heart disease Father Prostate cancer Social History Smoking Status: Never smoker Tobacco Type: Smokeless Tobacco (Dip or Chew) Age Started Using Tobacco: 22; Second Hand Exposure: No; Hx Alcohol Use: No Hx Substance Use: No Preferred Language: Mongolian Communication Ability: Effective Hearing Ability: Use of Hearing Aid Division Field Inspector Required: No Beliefs That Will Affect Care: None marital status: Current Living Situation: Spouse Current Living Situation Comment: lives in [place] current occupational status: retired 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; 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; [employer] How many Children do You have: 4 Feels Safe at Home: Yes Dental Care, Regularly: No Physical Activity Frequency: Daily Seatbelt Use: always Sunscreen Use: No Assistive Devices: Oxygen - Continuous Review of Systems All systems reviewed & are unremarkable except as noted in HPI & below Physical Exam Constitutional: WD/WN, vitals as above Respiratory: normal respiratory effort, lungs clear to auscultation Cardiovascular: RRR, no murmur, no edema Gastrointestinal (Abdomen): normal bowel sounds, soft, nontender, no hepatosplenomegaly Results & Data ([facility]) Vital Signs (Past 12 Hours) Vital Signs Temp Pulse Resp BP BP Pulse Ox 02/09/20 12:16 37.0 C 87 18 124/76 98 02/09/20 11:21 36.8 C 79 21 114/63 97 02/09/20 08:42 36.8 C 88 20 100/56 L 100 02/09/20 02:54 36.5 C 83 18 121/64 99 Code Status & VTE Plan VTE Prophylaxis Plan VTE Prophylaxis will be ordered: Yes
--- NOTE | 2020-02-09 13:01 | GI REPORT ---
Patient Name: Cleveland Rodrigez Procedure Date: 02/09/2020 12:43 PM Date of : 1930 Admit Type: Inpatient Age: 89 Gender: Male Attending MD: Tanesha Martinez DO Procedure: Upper GI endoscopy Providers: Tanesha Martinez DO Referring MD: Lucinda Leon Md Indications: Oropharyngeal phase dysphagia, Esophageal dysphagia, Place PEG because patient is unable to eat, Place PEG due to dysphagia, Place PEG due to impaired swallowing, Place PEG due to aspiration risk, Place PEG to improve nutrition in patient with prolonged severe illness Medicines: Propofol per Anesthesia Complications: No immediate complications. Estimated blood loss: None. Estimated Blood Loss: Estimated blood loss: none. Procedure: Pre-Anesthesia Assessment: - Prior to the procedure, a History and Physical was performed, and patient medications, allergies and sensitivities were reviewed. The patient's tolerance of previous anesthesia was reviewed. - The risks and benefits of the procedure and the sedation options and risks were discussed with the patient. All questions were answered and informed consent was obtained. - Patient identification and proposed procedure were verified prior to the procedure by the physician and the nurse. The procedure was verified in the pre-procedure area in the procedure room. - Mental Status Examination: alert and oriented. Airway Examination: normal oropharyngeal airway and neck mobility. Respiratory Examination: clear to auscultation. CV Examination: regular rate and rhythm. Abdominal Examination: bowel sounds present, abdomen soft and non-tender, no masses or organomegaly noted. - ASA Grade Assessment: IV - A patient with severe systemic disease that is a constant threat to life. After obtaining informed consent, the endoscope was passed under direct vision. Throughout the procedure, the patient's blood pressure, pulse, and oxygen saturations were monitored continuously. The Scope was introduced through the mouth, and advanced to the second part of duodenum. The upper GI endoscopy was accomplished without difficulty. The patient tolerated the procedure well. Findings: Savary-Pelaez Grade III (circumferential lesion, erosive or exudative) esophagitis with no bleeding was found at the gastroesophageal junction. A hiatal hernia was present. Many non-bleeding cratered duodenal ulcers with no stigmata of bleeding were found in the duodenal bulb and in the second portion of the duodenum. Impression: - Savary-Pelaez Grade III esophagitis. - Suspect he has a sliding hiatal hernia (see recommendations). - Non-bleeding duodenal ulcers with no stigmata of bleeding. - No specimens collected. Recommendation: - Unable to place PEG endoscopically. Using transillumination and exterior pressure, a safe place for tube placement was not pobbile. Stomach sits high under the ribs and unable to find a suitable location with adequate distance from the xiphoid and ribs. - Consider surgical consultation for surgically placed PEG. - Would treat with BID PPI - Return patient to hospital ac for ongoing care. Tanesha Martinez D.O. Tanesha Martinez, 02/09/2020 1:01:03 PM This report has been signed electronically. Note Initiated On: 02/09/2020 12:43 PM Number of Addenda: 0 I attest to the content of the Intraoperative Record and orders documented therein, exceptions below {[id number]}
--- NOTE | 2020-02-09 13:14 | Communication Note ---
Date of Service: February 09, 2020 Patient history and events of hospitalization reviewed in detail. Patient seen and examined. Consent for PEG obtained from both patient and his , Chula (via phone). Patient taken to the OR and EGD done to place PEG endoscopically. Unable to place PEG secondary to positioning of patient's stomach. See procedure note for details. Several duodenal ulcers noted. Recommend surgical consult for PEG placement. IV PPI BID for ulcers.
--- NOTE | 2020-02-09 13:17 | Pharmacy Report ---
Pharmacy Abx Dose Short Note - Date of Service February 09, 2020 - Assessment & Plan Assessment 89 year old M ordered empiric vancomycin and cefepime for treatment of possible sepsis from sacral decubitus or pulm source. * today is day #3 of broad spectrum antibiotics * 2/ BC reported no growth to date * coccyx culture reported moderate counts of mixed probable skin sam * patient was previously on zosyn -> changed to cefepime on 02/07 due to Scr trending upward in the setting of advanced age and CKD Plan Vancomycin * Current dose: 1000 mg (14 mg/kg) IV q24h * Will resume previous dose of 1000 mg IV q18h since Scr improved today (1.37 -> 1.17 mg/dL) * Trough level ordered for 02/08 @2330 (prior to 4th total dose) * Goal trough level: ~15 mcg/mL Pharmacy will continue to follow and will adjust dose/frequency as necessary. Thank you.
--- NOTE | 2020-02-09 14:06 | Anesthesiology Progress Note ---
Date of Service February 09, 2020 Anesthesia Post Procedure Vital Signs Vital Signs: Temp Pulse Pulse Resp BP BP Pulse Ox 02/09/20 13:25 92 H 20 103/59 L 92 02/09/20 13:15 36.3 C L 91 H 18 104/58 L 96 02/09/20 13:05 104 H 28 H 100/57 L 97 02/09/20 12:59 36.1 C L 87 23 96/51 L 97 02/09/20 12:16 37.0 C 87 18 124/76 98 02/09/20 11:21 36.8 C 79 21 114/63 97 02/09/20 08:42 36.8 C 88 20 100/56 L 100 02/09/20 02:54 36.5 C 83 18 121/64 99 02/08/20 23:19 36.7 C 90 16 109/63 98 02/08/20 19:03 36.4 C L 82 18 105/60 96 02/08/20 18:44 36.8 C 107 H 20 114/65 97 02/08/20 16:15 37.1 C 101 H 18 112/73 97 02/08/20 15:00 36.7 C 96 H 18 93/52 L 92 Pain Intensity Bilateral Generalized: Pain Intensity: 8 Right Wrist: Pain Intensity: 0 Transfer of Care Handoff Completed per policy Notes Mental Status: alert / awake / arousable and participated in evaluation Patient Amnestic to Procedure: Yes Nausea / Vomiting: adequately controlled Pain: adequately controlled Airway Patency, RR, SpO2: stable & adequate BP & HR: stable & adequate Hydration State: stable & adequate Anesthetic Complications: no major complications apparent and Pt Satisfied with anesthetic care
--- NOTE | 2020-02-09 15:31 | Hospitalist Progress Note ---
Date of Service February 09, 2020 Assessment & Plan (1) Atrial fibrillation: new diagnosis on 01/31 Afterwards, had sinus with PACs and some brief runs of afib for many days with rates in the 70s-80s without any rate control Went back into rapid atrial fibrillation with rates as high as the 180s on the morning of 02/06 in response to having rigors and a fever Improved rate control with IV Lopressor scheduled 5 mg every 6 hours, now in normal sinus rhythm with PACs Appreciate cardiology consultation He has a bifascicular block and amiodarone would not be a good option at this time Restart therapeutic Lovenox once stable after G-tube placement complete -Can also start metoprolol or carvedilol tablets through G-tube once placed (2) Sacral decubitus ulcer: Pressure ulcer of sacral region, unstageable, POA Nurse noted foul odor on 02/06 Wound culture taken-next skin sam -Follow blood cultures-NGTD May be the source of his fevers and rigors on 02/06 Continue wound care, offload pressure (3) Fever: With rigors and fever to 37.6 on the morning of 02/06 IV Tylenol given. No further fevers since that time Could be from worsening sacral decubitus ulcer with foul-smelling wound culture with pinpoint growth Chest x-ray with bilateral infiltrates stable from previous, but could have superimposed bacterial pneumonia on top of previous Covid-19 pneumonia, healthcare associated pneumonia Continue covering for gram-negative pneumonia with cefepime and for MRSA pneumonia with vancomycin Procalcitonin significantly elevated at 6 and now down to 4 after treating with antibiotics Follow blood cultures-no growth to date Follow CBC Check MRSA swab and discontinue vancomycin if negative (4) Dysphagia: Has failed numerous swallowing evaluations Had NG tube in place at times which were pulled out by the patient due to intolerance Treated for oral candidiasis with Diflucan and nystatin-continues on a statin PEG tube placement attempted on 02/08, but stomach too high under the ribs and was unable to be placed Consult general surgery for G-tube placement-plan for 02/09 keep strictly NPO as high aspiration risk Okay to restart PPN today-appreciate pharmacy management -Continue IV thiamine -DC maintenance IV fluids once PPN starts (5) Refeeding syndrome: Suspected-occurred afternoon on 01/31 was on PPN, signs/symptoms included sudden dyspnea, hypoxia, atrial fibrillation gave Lasix 40mg IV, stopped PPN, moved to PCU He was completely stable for many days resumed PPN on 02/02 at lower rate of 60mL/hr and lower total volume daily of 1500mL and was tolerating well until had a recurrence of same symptoms on 02/06 which were more likely secondary to fever as above PEG tube placement attempted and failed as above After G-tube placed, will restart tube feeds at a trickle rate, will appreciate any dietary input (6) Acute respiratory failure with hypoxemia: sudden desaturation in afternoon on 01/31 with hypoxemia requiring 15L oxymask and BIPAP briefly CXR only showed persistent infiltrates BNP was not markedly elevated he was also in afib with RVR at the time most likely explanation was refeeding syndrome versus rapid atrial fibrillation refeeding syndrome can cause hypoxia, volume overload, arrhythmias moved to PCU since that time Had a recurrent exact episode on 02/06 of rapid atrial fibrillation and hypoxia as above. Is now weaned down to 3-4 L Chest x-ray with persistent bilateral airspace opacities not worse than previous Treating empirically with cefepime and vancomycin for bacterial pneumonia Continue to wean off oxygen (7) Urinary retention: dennis pulled 02/02 since he was alert and communicating, getting OOB to chair he became agitated, swinging at nurses and staff on 02/02 and 02/03 straight cath for 600mL Replaced dennis catheter on 02/03 as he will likely continue to retain and will be a source of agitation can follow up with urology as outpatient, keep dennis on discharge and change out every month -We will plan to add tamsulosin once G tube placed (8) Metabolic encephalopathy: Due to COVID 19, delirium-improved significantly overall compared to previous descriptions of pulling out multiple lines/tubes and having to wear mitts as well as receiving Ativan He is now been mentating fairly well for the last week - Continue treatment with redirection, supportive care, Dnenis catheter for urinary retention -Also had no documented bowel movement in 23 days but now having regular bowel movements (9) Pneumonia due to COVID-19 virus: Chest x-ray on admission had progressed significantly since his previous hospital stay a few days prior. Now back on oxygen as above for possible recurrent bacterial pneumonia He did not receive remdesivir due to renal insufficiency and he was 10+ days out from illness when he presented. repeat rapid COVID is NEGATIVE and he is off precautions Chest x-ray with persistent bilateral airspace opacities-treating empirically with cefepime and vancomycin as above and could have bacterial pneumonia Procalcitonin is elevated at 6 and now trending downward (10) CKD (chronic kidney disease), stage III: Baseline CrCL 30s/40s. - Cr is stable -Avoid nephrotoxins -renally dose meds when appropriate -follow BMP (11) Coronary artery disease: No evidence of ACS, has a history of stents placed in 2019. No chest pain -Home meds of Coreg, ASA, statin all on hold while n.p.o. Continue IV metoprolol scheduled Plan restart home meds once G tube placed (12) Type 2 diabetes mellitus: Pharmacy glycemic consult placed. - Holding oral agents - Continue insulin as per pharmacy (13) Hypertension: BP normal to mildly low today unable to take medications PO Now on scheduled IV Lopressor (14) Hypoalbuminemia due to protein-calorie malnutrition: Albumin low at 1.8 Awaiting placement of G-tube to start tube feeds (15) Pressure ulcer, heel: Pressure ulcer R heel, stage 2, not POA Wound care, offload pressure (16) DVT prophylaxis: Lovenox 1mg/kg BID due to afib is on hold for G-tube placement Restart therapeutic Lovenox dosing when okay with surgery after G-tube placement Disposition-continued stay on PCU Condition is stable but overall prognosis trending towards poor Remains full code Palliative care is following (17) Goals of care, counseling/discussion: long discussion with family regarding goals of care on 01/29 and 01/30 and 02/01 by previous hospitalist they want him to get nutrition at this point, short term goal of improving nutrition to help improve strength they are on board with consult for GI for PEG tube as he pulled out NG tube twice they want him to come home but also want him to get stronger Patient wants to go home, however family wants to see how he does after he sta rts on tube feeds but think that they will be able to bring him home with / care and home health Now PEG tube placement postponed as above, not able to get nutrition Discussed with family again on 02/06 and 02/07-this does not miguel well for his prognosis Admission and Anticipated Discharge Date Admission Date: January 12, 2020 Subjective Patient wanted to try swallowing again today rather than getting a PEG tube. I discussed this case with speech therapy and with the patient and advised him this would be very unsafe as he has shown multiple times that he aspirates and if anything, his swallowing muscles would be weaker now than the last time he tried to swallow. He understood and was then agreeable to PEG tube again as his goal is to get improved nutrition so that he can go home and be with his . He otherwise feels better, no chest pain or shortness of breath, no abdominal pain. Unfortunately, the PEG was not able to be placed during EGD due to anatomy of the stomach being up under his rib cage. General surgery consultation was recommended. Telemetry with normal sinus rhythm, PACs, PVCs, wandering atrial pacemaker, rate 70s to 90s Discussed his case with cardiology, gastroenterology, palliative care, and general surgery today. Also discussed his care with his daughter Kaetlyn and grandson Royce on the phone at length today. Review of Systems Review of Systems: All systems reviewed & are unremarkable except as noted in HPI & below Physical Exam Constitutional: WD/WN, vitals as above + ill appearing; no acute distress Eyes: + anicteric sclerae ENMT: Mouth: + oropharynx abnormality (Very dry) Neck: trachea midline, no thyromegaly Respiratory: normal respiratory effort, lungs clear to auscultation Cardiovascular: RRR, no murmur, no edema Chest (Breasts): Chest: normal inspection of chest Gastrointestinal (Abdomen): normal bowel sounds, soft, nontender, no hepatosplenomegaly Musculoskeletal: Extremities: extremities normal to inspection; no cyanosis and no clubbing Skin: no rashes, warm and dry + ecchymosis (Numerous all over arms) Neurologic: moves all extremities and awake; no focal motor deficits Psychiatric: Orientation: alert and cooperative Genitourinary: Dennis catheter in place draining clear dark yellow urine Lymphatic: no lymphedema Results & Data Results & Data ([facility]) Vital Signs (Past 12 Hours) Vital Signs Temp Pulse Pulse Pulse Pulse Resp BP 02/09/20 14:41 85 02/09/20 14:30 88 117/64 02/09/20 14:27 36.5 C 88 18 02/09/20 13:25 92 H 20 02/09/20 13:15 36.3 C L 91 H 18 02/09/20 13:05 104 H 28 H 02/09/20 12:59 36.1 C L 87 23 02/09/20 12:16 37.0 C 87 18 02/09/20 11:21 36.8 C 79 21 02/09/20 08:42 36.8 C 88 20 BP BP Pulse Ox 02/09/20 14:41 111/66 02/09/20 14:30 02/09/20 14:27 117/64 97 02/09/20 13:25 103/59 L 92 02/09/20 13:15 104/58 L 96 02/09/20 13:05 100/57 L 97 02/09/20 12:59 96/51 L 97 02/09/20 12:16 124/76 98 02/09/20 11:21 114/63 97 02/09/20 08:42 100/56 L 100 Laboratory Results 02/09/20 06:16 02/09/20 06:16 Procalcitonin decreased to 4 Blood cultures no growth to date Wound culture with moderate counts of mixed probable skin microbiota PG Care Time/CCT Total # of Minutes Spent Total Time Spent with Patient: Total time spent is greater than 50% in coordination of care (as documented) at patient's floor/unit and/or counseling patient: Coding Level of Care Code 20886 Subseq Hosp Care Lvl 3 Diagnoses Atrial fibrillation I48.91 Sacral decubitus ulcer L89.159 Fever R50.9 Dysphagia R13.10 Refeeding syndrome E87.8 Acute respiratory failure with hypoxemia J96.01 Urinary retention R33.9 Metabolic encephalopathy G93.41 Pneumonia due to COVID-19 virus U07.1; J12.89 CKD (chronic kidney disease), stage III N18.3 Coronary artery disease I25.10 Associated angina: without angina Coronary Disease-Associated Artery/Lesion type: [place] artery [place] vs. 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 pipe repairer insulin use: without fpc use Hypertension I10 Hypertension type: essential hypertension Hypoalbuminemia due to protein-calorie malnutrition E88.09; E46 Pressure ulcer, heel L89.609 DVT prophylaxis Z29.9 Goals of care, counseling/discussion Z71.89 (1) Type 2 diabetes mellitus Chronic kidney disease stage: stage 3 (moderate) Diabetes mellitus comp lication detail: with chronic kidney disease Diabetes mellitus complication status: with kidney complications Diabetes mellitus fpc insulin use: without smoking pipe repairer use Qualified Code(s): E11.22 - Type 2 diabetes mellitus with diabetic chronic kidney disease; N18.3 - Chronic kidney disease, stage 3 (moderate) (2) Coronary artery disease Associated angina: without angina Coronary Disease-Associated Artery/Lesion type: [place] artery [place] vs. transplanted heart: [place] heart Qualified Code(s): I25.10 - Atherosclerotic heart disease of [place] coronary artery without angina pectoris (3) Hypertension Hypertension type: essential hypertension Qualified Code(s): I10 - Essential (primary) hypertension
--- NOTE | 2020-02-09 15:35 | Pharmacy Report ---
Pharmacy Glycemic Short Note 2 - Date of Service February 09, 2020 - Glycemic Short BSG Results (Last 24 hours): 02/08/20 02/09/20 02/09/20 21:54 00:05 06:16 Glucose 82 POC Glucose 114 H 166 H 02/09/20 02/09/20 02/09/20 06:39 07:55 11:31 Glucose POC Glucose 88 83 87 02/09/20 13:01 Glucose POC Glucose 86 OUTPATIENT ANTIDIABETIC REGIMEN: * amaryl, metformin, januvia * HbA1c: 9.7% (11/29/19) ASSESSMENT: 02/08: * PPN will be resumed today at 1600. Patient taken to OR today for PEG tube placement - may be starting trickle feeds. * Patient required no basal insulin yesterday while TPN was held. Continued to hold this am for BSG 88 mg/dL. * PPN contains 85 grams of dextrose and 18 units of regular insulin. 02/07: * PEG tube placement and PPN remain on hold. Preliminary BC reported no growth to date. * BSGs acceptable over the past 24 hours. Insulin needs decreased significantly without PPN on board (33 units/day -> 12 units/day) * Continue reduced dose of Lantus. 02/06: * PEG placement originally planned for today - now on hold * PPN placed on hold for Afib and rigors - will scale back on insulin considerably * Vancomycin and Zosyn started empirically for possible sepsis 02/05: * BSGs yesterday of 120, 135, 164, and 185 mg/dL * Received 20 units of Lantus, 3 units of bolus, and 17 units of IV insulin via TPN * Dextrose content of TPN will be increased to 90 g today -> will increase insulin in TPN to 20 units 01/28 * Patient received total of 58 units of insulin yesterday, of which 25 were basal insulin * Fasting BSG elevated at 292 mg/dL - follow Lantus scale for this AM * Nurse notified pharmacy later this morning that patient pulled out NG tube again / tube feeds stopped - d/c basal for HS PLAN FOR INPATIENT GLYCEMIC CONTROL: * Hold outpatient oral diabetes medications * Basal insulin * Lantus per scale SQ BID: * 0 units for BSG 180 mg/dL or less * 5 units for BSG greater than 180 mg/dL * Bolus insulin * Novolog SQ Q 6 hrs * Goal range: 120 -160 mg/dL * Correction factor: 15 mg/dL/unit * Prandial: 18 units of regular insulin in PPN
[2020-02-09] MEDS ORDERED: Custom Peripheral Pn 1,500 ML in TPN BAG 0 ML IV SCH (16:00)
--- NOTE | 2020-02-09 16:44 | Surgery Consultation ---
Date of Consultation February 09, 2020 Assessment & Plan (1) Dysphagia: This is an 89y M with a PMH of of sacral decub, CAD, CKD, DM2, hiatal hernia, a new dx of afib who was admitted on 01/12/20 with worsening Covid symptoms after a positive diagnosis. During patient's hospitalization he was noted to not be eating well. Speech therapy evaluated the patient and noted patient to have retention of food/liquids with a non functional swallow. GI was consulted for PEG tube placement that was attempted today, however was unsuccessful due to position of the stomach. Surgery was consulted thereafter for consideration of feeding tube placement of which family is requesting for nutrition prior to patient returning home. Discussions in place between patient and family. This would be a surgical procedure with higher risks associated with anesthesia and abdominal incisions. If everyone is agreeable we can consider taking patient to the OR for an open gastrostomy tube tomorrow vs early next week. Supervising Physician Co-Signing Physician Notes Patient seen and examined, labs and image reviewed, agree with above. 89-year-old male with multiple medical problems and prolonged hospital stay secondary to Covid 19. He has had multiple failed swallowing studies and has been unable to tolerate p.o. He has removed multiple nasogastric feeding tubes. PEG was attempted today, however unable to get a safe window to access the stomach. Surgery was consulted for possible surgical gastrostomy placement. On exam he is awake and oriented, slightly confused but overall understood the conversation. Afebrile with stable vitals. Abdomen is soft, nondistended, nontender. Unable to visualize any significant scars from prior surgery. Labs are overall unremarkable. Inability to tolerate oral intake secondary to swallowing difficulty and aspiration risk I had a long discussion with the patient and his family. They understand that placement of a surgical gastrostomy tube is more invasive and requires general anesthesia which puts the patient at a higher risk than a PEG placement. The also understands that long-term studies have never shown any survival benefit for placement of PEG tube or G-tube in similar situations. After our discussion they do wish to proceed with surgical gastrostomy tube placement. Plan for open gastrostomy tube placement The risk of the procedure were discussed to include but not limited to bleeding, infection, damage to surrounding structures, need for future more extensive surgery, G-tube malfunction, hernia, and the risk of anesthesia The details of the surgery and recovery were discussed with the patient as well as with his over the phone, all questions were answered, the patient and his both agreed to proceed with the surgery as planned. We will obtain verbal consent over the phone from his who is his power of behavioral health therapist tomorrow prior to surgery Continue n.p.o., hold anticoagulation We will obtain a CT scan of the abdomen and pelvis to rule out any other reason for inability to place a G-tube Hope for placement tomorrow, may be delayed given Covid pandemic and or need for other emergency procedures History of Present Illness Attending Physician: Lucinda Leon MD History of Present Illness This is an 89y M with a PMH of of sacral decub, CAD, CKD, DM2, hiatal hernia, a new dx of afib who was admitted on 01/12/20 with worsening Covid symptoms after a positive diagnosis. During the patient's hospitalization he has dealt with issues related to his covid dx including pneumonia & delirium, in addition to developing dysphagia. The patient has been evaluated by speech therapy on multiple occasions and unfortunately the patient has no functional swallow. Palliative care has also been involved in the patient's care and his family wishes patient to be able to have some sort of nutrition prior to coming home. He did have an NGT placed twice which he removed and he is currently receiving ppn for nutrition. GI was consulted for consideration of PEG tube placement which was attempted today, however this was unable to be accomplished as there was no safe window or good position of the stomach. Now surgery was consulted for consideration of feeding tube placement. Patient reports he just wishes he could drink something. Allergies Allergy/AdvReac Type Severity Reaction Status Date / Time No Known Drug Allergies Allergy Verified 01/12/20 14:39 Home Medications Medication Instructions Recorded Confirmed Type aspirin 81 mg tablet,delayed 81 mg PO QAM 03/12/18 01/12/20 History release clonidine HCl 0.1 mg tablet 0.1 mg PO DAILY PRN tab 11/04/18 01/12/20 History pantoprazole 40 mg tablet,delayed 40 mg PO BID #180 tab 02/24/19 01/12/20 Rx release carvedilol 25 mg tablet 25 mg PO BID #180 tab 05/06/19 01/12/20 Rx metformin 1,000 mg tablet 1,000 mg PO BID #180 tab 05/17/19 01/12/20 Rx atorvastatin 80 mg tablet 80 mg PO HS #90 tab 06/21/19 01/12/20 Rx glimepiride 4 mg tablet 4 mg PO BID #180 tab 08/04/19 01/12/20 Rx Januvia 25 mg PO HS 01/08/20 01/12/20 History ondansetron HCl [Zofran] 4 mg PO Q8H PRN 5 Days #20 tab 01/09/20 01/12/20 Rx Patient History Medical History Actinic keratosis Anaplasmosis Atrial premature complex Benign localized prostatic hyperplasia with lower urinary tract symptoms (LUTS) BMI 29.0-29.9,adult CAD (coronary artery disease) Chews tobacco regularly CKD (chronic kidney disease), stage III Constipation Depression Diabetes mellitus Diabetic nephropathy Diabetic peripheral neuropathy [place] lesion of stomach Erythematous papules of skin Gastritis GERD (gastroesophageal reflux disease) Helicobacter pylori ab+ (10/27/13) Hiatal hernia History of SCC (squamous cell carcinoma) of skin Hypertension Rhabdomyolysis SI joint arthritis Trochanteric bursitis Type 2 diabetes mellitus Unilateral primary osteoarthritis, left hip Urinary hesitancy Visual impairment Vitamin D deficiency Surgical History History of appendectomy History of colonoscopy History of transurethral resection of prostate Family History Unknown Diabetes Coronary heart disease Father Prostate cancer Social History Smoking Status: Never smoker Tobacco Type: Smokeless Tobacco (Dip or Chew) Age Started Using Tobacco: 22; Second Hand Exposure: No; Hx Alcohol Use: No Hx Substance Use: No Preferred Language: Gabonese Communication Ability: Effective Hearing Ability: Use of Hearing Aid Cashier Ticket Selling Required: No Beliefs That Will Affect Care: None marital status: Current Living Situation: Spouse Current Living Situation Comment: lives in [place] current occupational status: 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; 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; [employer] How many Children do You have: 4 Feels Safe at Home: Yes Dental Care, Regularly: No Physical Activity Frequency: Daily Seatbelt Use: always Sunscreen Use: No Assistive Devices: Oxygen - Continuous Review of Systems Ear, Nose, Mouth, Throat: trouble swallowing Gastrointestinal: no abdominal pain, no nausea and no vomiting Physical Exam Physical Exam: awake Gastrointestinal (Abdomen): Inspection/Auscultation: abdomen not distended Percussion/Palpation: abdomen soft; abdomen nontender Results & Data ([facility]) Vital Signs (Past 12 Hours) Vital Signs Temp Pulse Pulse Pulse Pulse Resp BP 02/09/20 15:00 37.1 C 82 16 02/09/20 14:41 85 02/09/20 14:30 88 117/64 02/09/20 14:27 36.5 C 88 18 02/09/20 13:25 92 H 20 02/09/20 13:15 36.3 C L 91 H 18 02/09/20 13:05 104 H 28 H 02/09/20 12:59 36.1 C L 87 23 02/09/20 12:16 37.0 C 87 18 02/09/20 11:21 36.8 C 79 21 02/09/20 08:42 36.8 C 88 20 BP BP Pulse Ox 02/09/20 15:00 105/56 L 99 02/09/20 14:41 111/66 02/09/20 14:30 02/09/20 14:27 117/64 97 02/09/20 13:25 103/59 L 92 02/09/20 13:15 104/58 L 96 02/09/20 13:05 100/57 L 97 02/09/20 12:59 96/51 L 97 02/09/20 12:16 124/76 98 02/09/20 11:21 114/63 97 02/09/20 08:42 100/56 L 100 PG Care Time/CCT Total # of Minutes Spent Total Time Spent with Patient: Total time spent is greater than 50% in coor dination of care (as documented) at patient's floor/unit and/or counseling patient: Coding Level of Care Code 26444 Initial Inpt Care Lvl 1 Diagnoses Dysphagia R13.10
--- NOTE | 2020-02-09 18:45 | CT Scan Report ---
ABDOMEN AND PELVIS CT WITHOUT CONTRAST CT DOSE: 719.94 mGycm HISTORY: Follow up study in a patient with possible hiatal hernia. Screening study for possible G-tub e placement. eval prior to openG tube placement, ?hiatal hernia TECHNIQUE: Multiaxial CT images of the abdomen and pelvis were performed without contrast. A dose lo wering technique was utilized adhering to the principles of ALARA. COMPARISON STUDY: Chest radiograph 02/08/2020, CT abdomen and pelvis 05/04/2015, CTA chest 10/29/2018. FINDINGS: Bibasilar groundglass and consolidative opacities. Trace pleural effusions. No pneumatosis or pneumoperitoneum. Cardiomegaly with extensive coronary artery calcifications. Limited evaluation of the solid abdominal organs without the use of IV contrast. There is a new wedge -shaped area of ill-defined decreased attenuation involving the medial spleen measuring 4.5 x 2.8 cm suggestive of a splenic infarct with possible additional smaller infarcts of the inferior and posteri or spleen. There is mild perisplenic stranding without large collection. Mild generalized pancreatic atrophy. Unremarkable adrenal glands. Mild to moderate gallbladder distention. Unremarkable liver. Bilateral renal cysts, the largest on the right measuring over 10 cm. Additionally, there are hypoden sities of the bilateral kidneys which are incompletely characterized on this study however also are s uggestive of probable cysts. One of the cysts within the inferior pole left kidney demonstrates mild marginal calcification. No renal calculi or hydronephrosis. Vo catheter noted within a decompresse d urinary bladder. Small layering hyperdensities within the urinary bladder may reflect bladder calcu li. Air within the bladder is likely secondary to instrumentation. Prostamegaly. Calcified plaque of the abdominal aorta without aneurysm. No adenopathy. No hiatal hernia identified. There is no bowel obstruction or bowel thickening. Mild to moderate feca l retention of the rectum. The appendix is not definitively seen. Unremarkable soft tissues. Remote L 1 compression deformity. Degenerative changes of the spine, pelvis and hips. IMPRESSION: 1. Bibasilar groundglass and consolidative opacities with trace pleural effusions. Pneumonia versus a spiration pneumonitis considered. 2. No bowel obstruction or bowel wall thickening. 3. No hiatal hernia. 4. Limited evaluation of the solid abdominal organs without the use of IV contrast. Note is made of a cute versus subacute splenic infarcts, the largest of which measures up to 4.5 cm. Mild likely reacti ve perisplenic stranding. ACT 112: Negative or not required by law. The above report was generated using voice recognition software. It may contain grammatical, syntax o r spelling errors. Electronically signed by: Bishnu Shankar M.D. 02/09/2020 6:44 PM
[2020-02-09] MEDS: PANTOprazole 40 MG in SYRINGE 0 ML IV SCH (19:21)
[2020-02-09] MEDS ORDERED: VANCOMYCIN TROUGH ONE (23:30)
[2020-02-10] MEDS: METOPROLOL TARTRATE 1 MG/ML VIAL IV SCH ×4 (00:20→18:53)
[2020-02-10] MEDS: INSULIN ASPART 100 UNITS/ML 3 ML PEN SC SCH ×4 (00:21→18:18)
[2020-02-10] MEDS: VANCOMYCIN HCL 1,000 MG in SODIUM CHLORIDE 0.9% 250 ML IV SCH ×2 (00:21→18:53)
[2020-02-10] MEDS: CEFEPIME 2,000 MG in SYRINGE 0 ML IV SCH ×2 (05:16→16:09)
[2020-02-10 06:58] LABS: BUN Creatinine Ratio 25.4 (10-20); Calcium 8.5 mg/dl (8.5-10.1); Creatinine Clr Calc Pharmacy 49.7 ml/min; Est GFR (African American) 69.6; Magnesium 1.9 mg/dl (1.8-2.4); Potassium 3.6 mmol/L (3.5-5.1)
[2020-02-10 07:07] LABS: Phosphorus 2.5 mg/dl (2.5-4.9)
[2020-02-10] MEDS: INSULIN GLARGINE SOLOSTAR 100 UNITS/ML 3 ML PEN SC SCH ×2 (08:54→21:22)
[2020-02-10] MEDS: THIAMINE HCL 100 MG in SYRINGE 9 ML IV SCH (08:55)
[2020-02-10] MEDS: PANTOprazole 40 MG in SYRINGE 0 ML IV SCH ×2 (08:55→21:23)
[2020-02-10] MEDS: NYSTATIN SUSP 500,000 U/5 ML UDC PO SCH ×4 (08:55→21:25)
--- NOTE | 2020-02-10 10:04 | Surgery Progress Note ---
Date of Service February 10, 2020 Assessment & Plan (1) Hypoalbuminemia due to protein-calorie malnutrition: Inability to tolerate oral intake secondary to swallowing difficulty and aspiration risk I had a long discussion with the patient and his family. They understand that placement of a surgical gastrostomy tube is more invasive and requires general anesthesia which puts the patient at a higher risk than a PEG placement. The also understands that long-term studies have never shown any survival benefit for placement of PEG tube or G-tube in similar situations. After our discussion they do wish to proceed with surgical gastrostomy tube placement. Plan for open gastrostomy tube placement The risk of the procedure were discussed to include but not limited to bleeding, infection, damage to surrounding structures, need for future more extensive surgery, G-tube malfunction, hernia, and the risk of anesthesia The details of the surgery and recovery were discussed with the patient as well as with his over the phone, all questions were answered, the patient and his both agreed to proceed with the surgery as planned. verbal consent obtained over the phone from his Admission and Anticipated Discharge Date Admission Date: January 12, 2020 Subjective 89-year-old male with multiple medical problems and prolonged hospital stay secondary to Covid 19. He has had multiple failed swallowing studies and has been unable to tolerate p.o. He has removed multiple nasogastric feeding tubes. PEG was attempted today, however unable to get a safe window to access the stomach. Surgery was consulted for possible surgical gastrostomy placement. No changes since yesterday. CT scan showed some possible acute to subacute splenic infarcts, otherwise no signs of obstruction or other abnormalities to preclude gastrostomy tube placement today. Physical Exam Constitutional: WD/WN, vitals as above Gastrointestinal (Abdomen): normal bowel sounds, soft, nontender, no hepatosplenomegaly Results & Data ([facility]) Vital Signs (Past 12 Hours) Vital Signs Temp Pulse Pulse Resp BP Pulse Ox 02/10/20 07:37 36.6 C 80 20 119/64 94 02/10/20 03:45 36.9 C 87 20 129/59 L 94 02/10/20 00:20 56 L 02/10/20 00:11 36.5 C 75 18 140/62 94 Laboratory Results Laboratory Results - last 24 hr 02/09/20 02/09/20 02/09/20 11:31 13:01 17:41 Sodium Potassium Chloride Carbon Dioxide Anion Gap BUN Creatinine Est Cr Clr Drug Dosing Est GFR ( Amer) Est GFR (Non-Af Amer) BUN/Creatinine Ratio Glucose POC Glucose 87 86 Calcium Phosphorus Magnesium Nasal Screen MRSA (PCR) Negative Vancomycin Trough 02/09/20 02/09/20 02/09/20 18:07 20:21 22:58 Sodium Potassium Chloride Carbon Dioxide Anion Gap BUN Creatinine Est Cr Clr Drug Dosing Est GFR ( Amer) Est GFR (Non-Af Amer) BUN/Creatinine Ratio Glucose POC Glucose 94 129 H Calcium Phosphorus Magnesium Nasal Screen MRSA (PCR) Vancomycin Trough 18.7 02/10/20 02/10/20 02/10/20 00:06 05:45 06:03 Sodium 146 H Potassium 3.6 Chloride 115 H Carbon Dioxide 22 Anion Gap 9.0 BUN 28 H Creatinine 1.10 Est Cr Clr Drug Dosing 49.7 Est GFR ( Amer) 69.6 Est GFR (Non-Af Amer) 60.0 BUN/Creatinine Ratio 25.4 H Glucose 127 H POC Glucose 108 H 130 H Calcium 8.5 Phosphorus 2.5 D Magnesium 1.9 Nasal Screen MRSA (PCR) Vancomycin Trough 02/10/20 09:46 Sodium Potassium Chloride Carbon Dioxide Anion Gap BUN Creatinine Est Cr Clr Drug Dosing Est GFR ( Amer) Est GFR (Non-Af Amer) BUN/Creatinine Ratio Glucose POC Glucose 148 H Calcium Phosphorus Magnesium Nasal Screen MRSA (PCR) Vancomycin Trough Diagnostic Findings ABDOMEN AND PELVIS CT WITHOUT CONTRAST CT DOSE: 719.94 mGycm HISTORY: Follow up study in a patient with possible hiatal hernia. Screening study for possible G-tube placement. eval prior to openG tube placement, ?hiatal hernia TECHNIQUE: Multiaxial CT images of the abdomen and pelvis were performed without contrast. A dose lowering technique was utilized adhering to the principles of ALARA. COMPARISON STUDY: Chest radiograph 02/08/2020, CT abdomen and pelvis 05/04/2015, CTA chest 10/29/2018. FINDINGS: Bibasilar groundglass and consolidative opacities. Trace pleural effusions. No pneumatosis or pneumoperitoneum. Cardiomegaly with extensive coronary artery calcifications. Limited evaluation of the solid abdominal organs without the use of IV contrast. There is a new wedge-shaped area of ill-defined decreased attenuation involving the medial spleen measuring 4.5 x 2.8 cm suggestive of a splenic infarct with possible additional smaller infarcts of the inferior and posterior spleen. There is mild perisplenic stranding without large collection. Mild generalized pancreatic atrophy. Unremarkable adrenal glands. Mild to moderate gallbladder distention. Unremarkable liver. Bilateral renal cysts, the largest on the right measuring over 10 cm. Additionally, there are hypodensities of the bilateral kidneys which are incompletely characterized on this study however also are suggestive of probable cysts. One of the cysts within the inferior pole left kidney demonstrates mild marginal calcification. No renal calculi or hydronephrosis. Vo catheter noted within a decompressed urinary bladder. Small layering hyperdensities within the urinary bladder may reflect bladder calculi. Air within the bladder is likely secondary to instrumentation. Prostamegaly. Calcified plaque of the abdominal aorta without aneurysm. No adenopathy. No hiatal hernia identified. There is no bowel obstruction or bowel thickening. Mild to moderate fecal retention of the rectum. The appendix is not definitively seen. Unremarkable soft tissues. Remote L1 compression deformity. Degenerative changes of the spine, pelvis and hips. IMPRESSION: 1. Bibasilar groundglass and consolidative opacities with trace pleural effusions. Pneumonia versus aspiration pneumonitis considered. 2. No bowel obstruction or bowel wall thickening. 3. No hiatal hernia. 4. Limited evaluation of the solid abdominal organs without the use of IV contrast. Note is made of acute versus subacute splenic infarcts, the largest of which measures up to 4.5 cm. Mild likely reactive perisplenic stranding. PG Care Time/CCT Total # of Minutes Spent Total Time Spent with Patient: Total time spent is greater than 50% in coordination of care (as documented) at patient's floor/unit and/or counseling patient: Coding Level of Care Code 68195 Inpt Consult Level 3 Diagnoses Hypoalbuminemia due to protein-calorie malnutrition E88.09; E46
[2020-02-10] MEDS ORDERED: BUPIVACAINE LIPOSOME 1.3% 266 MG/20 ML VIAL ONE (10:14)
[2020-02-10] MEDS ORDERED: BUPIVACAINE 0.5 % 5 MG/1 ML MPF 30ML VIAL ONE (10:14)
[2020-02-10] MEDS ORDERED: LIDOCAINE 2% 2 ML VIAL/AMP(20MG/ML) INFIL ONE (10:20)
[2020-02-10] MEDS ORDERED: PROPOFOL IV EMULSION 10 MG/ML 20 ML VIAL IV ONE (10:20)
[2020-02-10] MEDS ORDERED: ONDANSETRON INJ 2 MG/ML 2 ML VIAL ONE (10:20)
[2020-02-10] MEDS ORDERED: fentaNYL citrate 100 MCG/2 ML VIAL ONE (10:22)
--- NOTE | 2020-02-10 10:27 | Anesthesiology Consultation ---
Date of Service February 10, 2020 Assessment & Plan (1) Encounter for pre-operative examination: Chart Review Chart Review: Acceptable Risk for Surgery and Patient NOT seen in Pre Admission Testing Consults Requested none ASA ASA4 Proposed Anesthesia Anesthesia Type: General Risk / Benefits Reviewed With: PT / POA / Parent / Guardian, Accepts Plan and Informed Consent Obtained History Surgery Operation Date: 02/02/20 16:15 Proposed Procedures p Esophagogastroduodenoscopy Dr Javon Alejandro DO Operation Date: 02/03/20 16:00 Proposed Procedures p Esophagogastroduodenoscopy Dr Javon Alejandro DO s Peg Tube Placement Dr Javon Alejandro DO Operation Date: 02/07/20 16:30 Proposed Procedures p Esophagogastroduodenoscopy Dr Javon Alejandro DO s Peg Tube Placement Dr Javon Alejandro DO Operation Date: 02/08/20 11:30 Proposed Procedures p Esophagogastroduodenoscopy with - Frantz Adler MD s PEG Tube Placement - Frantz Adler MD Operation Date: 02/09/20 07:45 Proposed Procedures p Esophagogastroduodenoscopy - Tanesha Martinez DO s PEG Tube Placement - Frantz Adler MD Operation Date: 02/10/20 09:50 Proposed Procedures p Open Gastric Tube Placement - Suhas Young DO, FACS Height/Weight Height: 5 ft 11 in Weight: 74.9 kg Allergies Allergy/AdvReac Type Severity Reaction Status Date / Time No Known Drug Allergies Allergy Verified 01/12/20 14:39 Medications Home Medications Medication Instructions Recorded Confirmed Last Taken aspirin 81 mg tablet,delayed 81 mg PO QAM 03/12/18 01/12/20 01/08/20 release clonidine HCl 0.1 mg tablet 0.1 mg PO DAILY PRN tab 11/04/18 01/12/20 Unknown pantoprazole 40 mg tablet,delayed 40 mg PO BID #180 tab 02/24/19 01/12/20 01/08/20 release carvedilol 25 mg tablet 25 mg PO BID #180 tab 05/06/19 01/12/20 01/08/20 metformin 1,000 mg tablet 1,000 mg PO BID #180 tab 04/06/20 12/02/20 11/28/20 atorvastatin 80 mg tablet 80 mg PO HS #90 tab 06/21/19 01/12/20 01/07/20 glimepiride 4 mg tablet 4 mg PO BID #180 tab 08/04/19 01/12/20 01/08/20 Januvia 25 mg PO HS 01/08/20 01/12/20 01/07/20 ondansetron HCl [Zofran] 4 mg PO Q8H PRN 5 Days #20 tab 01/09/20 01/12/20 Unknown Active Medications Generic Name Dose Route Start Last Admin Trade Name Freq PRN Reason Stop Dose Admin Enoxaparin Sodium 70 mg 02/07/20 22:00 02/08/20 15:32 Enoxaparin 80 Mg/0.8 Ml Syr SQ 03/08/20 21:59 Not Given Q12H DERICK Glucose 15 - 30 gm 01/14/20 11:45 01/19/20 08:54 Glucose 40% Gel 15 Gm Tube PO 02/13/20 11:44 15 gm UD PRN Administration Hypoglycemia Protocol Protocol Thiamine HCl 100 mg/ Syringe 10 mls @ 2 mls/min 02/03/20 11:30 02/10/20 08:55 IV 03/04/20 11:29 2 mls/min QAM DERICK Administration Cefepime HCl 2,000 mg/ Syringe 20 mls @ 5 mls/min 02/08/20 16:00 02/10/20 05:16 IV 02/14/20 15:59 5 mls/min Q12H DERICK Administration Protocol Nutrition (Parenteral) 1,500 1,500 mls @ 62.5 mls/hr 02/09/20 16:00 02/09/20 16:17 ml/ TPN BAG IV 02/10/20 15:59 62.5 mls/hr .Q24H DERICK Administration Protocol Vancomycin HCl 1,000 mg/ 270 mls @ 200 mls/hr 02/10/20 00:00 02/10/20 01:48 Sodium Chloride IV 02/14/20 11:59 Infused Q18H DERICK Infusion Protocol Pantoprazole Sodium 40 mg/ 10 mls @ 5 mls/min 02/09/20 21:00 02/10/20 08:55 Syringe IV 03/10/20 20:59 5 mls/min BID DERICK Administration Insulin Aspart 0 units 02/02/20 12:00 02/10/20 06:21 Insulin Aspart 100 Units/Ml 3 Ml Pen SC 03/03/20 11:59 Not Given Q6 DERICK Insulin Glargine 0 units 02/05/20 21:00 02/10/20 08:54 Insulin Glargine Solostar 100 Units/Ml 3 Ml Pen SC 03/04/20 20:59 Not Given BID DERICK Protocol Metoprolol Tartrate 5 mg 02/07/20 18:00 02/10/20 06:04 Metoprolol Tartrate 1 Mg/Ml Vial IV 03/08/20 17:59 5 mg Q6 DERICK Administration Miscellaneous 15 - 30 gm 01/14/20 11:45 01/19/20 08:45 Carbohydrates For Hypoglycemia PO 02/13/20 11:44 15 gm UD PRN Administration Hypoglycemia Treatment Nystatin 5 ml 02/07/20 13:00 02/10/20 08:55 Nystatin Susp 500,000 U/5 Ml Udc PO 02/17/20 12:59 5 ml QID DERICK Administration Ondansetron HCl 4 mg 01/12/20 19:07 02/02/20 22:25 Ondansetron Inj 2 Mg/Ml 2 Ml Vial IV 02/11/20 19:06 4 mg Q6H PRN Administration Nausea NPO Date Last Intake of Fluids: 02/10/20 Time Last Intake of Fluids: 23:00 Last Intake of Fluids Comment: pt has been npo for several days Date Last Intake of Solids: 02/09/20 Last Intake of Solids Comment: NPO SINCE MIDNIGHT Past Medical History Medical History Actinic keratosis Anaplasmosis Atrial premature complex Benign localized prostatic hyperplasia with lower urinary tract symptoms (LUTS) BMI 29.0-29.9,adult CAD (coronary artery disease) Chews tobacco regularly CKD (chronic kidney disease), stage III Constipation Depression Diabetes mellitus Diabetic nephropathy Diabetic peripheral neuropathy Dieulafoy lesion of stomach Erythematous papules of skin Gastritis GERD (gastroesophageal reflux disease) Helicobacter pylori ab+ (10/27/13) Hiatal hernia History of SCC (squamous cell carcinoma) of skin Hypertension Rhabdomyolysis SI joint arthritis Trochanteric bursitis Type 2 diabetes mellitus Unilateral primary osteoarthritis, left hip Urinary hesitancy Visual impairment Vitamin D deficiency Exercise / Class Metabolic Activity IV < 2 Limit ADL/Bedbound 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 Past Family History Family History Unknown Diabetes Coronary heart disease Father Prostate cancer Past Surgical History Surgical History History of appendectomy History of colonoscopy History of transurethral resection of prostate Past Anesthesia History No Hx of Anesthesia Complications History of PONV No Hx of PONV Social History Smoking Status: Never smoker tobacco type: smokeless tobacco Do You Dip or Chew Tobacco: Yes Hx Alcohol Use: No Hx Substance Use: No substance use type: does not use Review of Systems Denies CP or SOB Denies heart burn Reports being appropriately NPO Oriented to self but not planned procedure at this time Physical Exam Vital Signs Last Vital Signs Temp 37.3 C 02/10/20 10:11 Pulse 107 H 02/10/20 10:11 Resp 20 02/10/20 10:11 BP 117/82 02/10/20 10:11 Pulse Ox 95 02/10/20 10:11 Constitutional not obese ENMT Mouth: + edentulous (no upper teeth); no TMJ abnormality and oral opening not small Thyromental Distance: > or= 3.5 Finger Breadths Mallampati Class: III Neck normal visual inspection; neck extension not limited Respiratory normal respiratory effort Auscultation: lungs clear to auscultation bilaterally Cardiovascular Rate/Rhythm: + abnormal rate and + abnormal rhythm Heart Sounds: no murmur Neurologic moves all extremities Psychiatric Orientation: alert and oriented to person Testing Laboratory Results 02/09/20 06:16 02/10/20 05:45 PT 11.7 Seconds (9.0-12.0) 01/12/20 13:22 INR 1.1 (0.9-1.1) 01/12/20 13:22 APTT 33.2 Seconds (21.0-31.0) H 01/12/20 13:22 Urine Color Dark Yellow 01/12/20 18:26 Urine Appearance Cloudy (Clear) A 01/12/20 18:26 Urine pH 5.0 (4.5-7.5) 01/12/20 18:26 Ur Specific [place] 1.023 (1.000-1.030) 01/12/20 18:26 Urine Protein 3+ (Negative) H 01/12/20 18:26 Urine Glucose (UA) 2+ (Negative) H 01/12/20 18:26 Urine Ketones Trace (Negative) H 01/12/20 18:26 Urine Nitrite Negative (Negative) 01/12/20 18:26 Ur Leukocyte Esterase Negative (Negative) 01/12/20 18:26 Urine WBC (Auto) 1-5 /hpf (0-5) 01/12/20 18:26 Urine RBC (Auto) 0-4 /hpf (0-4) 01/12/20 18:26 U Hyaline Cast (Auto) 1-5 /lpf (0-5) 01/12/20 18:26 U Epithel Cells (Auto) 20-30 /lpf (0-5) H 01/12/20 18:26 Urine Bacteria (Auto) Negative (Negative) 01/12/20 18:26 Blood Type AB Positive 01/12/20 16:30 Antibody Screen NEGATIVE 01/12/20 16:30 02/07/20 11:47 Gram Stain - Final Coccyx Decubitus Deep Wound Culture - Final Moderate counts mixed probable skin microbiota. No further identifications or sensitivities to follow. 02/07/20 08:34 Aerobic Blood Culture - Preliminary Blood No growth in Aerobic bottle after 48 hours. Anaerobic Blood Culture - Final 02/07/20 08:43 Aerobic Blood Culture - Preliminary Blood No growth in Aerobic bottle after 48 hours. Anaerobic Blood Culture - Final 01/12/20 13:22 Aerobic Blood Culture - Final Blood No growth in Aerobic bottle after 5 days. Anaerobic Blood Culture - Final No growth in Anaerobic bottle after 5 days. 01/12/20 13:22 Aerobic Blood Culture - Final Blood No growth in Aerobic bottle after 5 days. Anaerobic Blood Culture - Final No growth in Anaerobic bottle after 5 days. 01/12/20 18:26 Urine Culture - Final Urine,Clean Catch More than three types of organisms present, all moderate counts mixed probable skin sam. No further identifications or sensitivities to follow. 02/10/20 02/10/20 02/10/20 09:46 06:03 00:06 POC Glucose 148 H 130 H 108 H Electrocardiogram Date: 02/07/20 DICTATED BY: Jose Maldonado MD Test Reason : Blood Pressure : / mmHG Vent. Rate : 147 BPM Atrial Rate : 113 BPM P-R Int : 000 ms QRS Dur : 126 ms QT Int : 318 ms P-R-T Axes : 000 -80 035 degrees QTc Int : 497 ms Likely atrial fibrillation Right bundle branch block Left anterior fascicular block Bifascicular block Minimal voltage criteria for LVH, may be normal variant Abnormal ECG When compared with ECG of 01-FEB-2020 14:00, ST now depressed in Anterior leads Confirmed by Jose Maldonado ([id number]) on 02/07/2020 6:31:39 PM Chest X-Ray Date: 02/01/20 XR chest 1V portable CLINICAL HISTORY: hypoxia COMPARISON STUDY: 01/31/2020 FINDINGS: The heart remains enlarged. There are persistent bilateral pulmonary airspace opacities consistent with a multifocal pneumonia. There is no overt failure. There are no large pleural effusions.[ IMPRESSION: Persistent multifocal airspace opacities, consistent with a multifocal pneumonia Echocardiogram Date: 10/30/18 LVH. Mild AR. No . EF 55-60%
[2020-02-10] MEDS ORDERED: fentaNYL citrate 100 MCG/2 ML VIAL IV PRN (10:42)
[2020-02-10] MEDS ORDERED: ePHEDrine sulfate 50 MG/ML AMP IV PRN (10:42)
[2020-02-10] MEDS ORDERED: ONDANSETRON INJ 2 MG/ML 2 ML VIAL IV PRN (10:42)
[2020-02-10] MEDS ORDERED: ATROPINE SULFATE 0.1 MG/ML 10ML SYR IV PRN (10:42)
[2020-02-10] MEDS ORDERED: MAGNESIUM SULFATE / D5W 1 GM/100 ML BAG IV ONE (11:00)
--- NOTE | 2020-02-10 12:14 | Operative Report ---
PG Post Operative Report Pre & Post Diagnosis Operation Date: 02/10/20 09:50 Pre-Op Diagnosis: malnutrition; covid infection Post-Op Diagnosis: malnutrition; covid infection I identified the patient and participated in the time-out.: Yes Procedure Operation Date: 02/10/20 09:50 Actual Procedures p Open Gastric Tube Placement(Not Applicable) - Suhas Young DO, FACS Surgeon Suhas Young DO, [employer] Web Content Writer [employer] Estimated Blood Loss 5 Findings Consistent with Post-Op Diagnosis Barbara gastrostomy performed, 24 [place] G-tube placed, Exparel injected. Specimens None Anesthesia Type General Complications none Disposition Accompanied Patient To Recovery: No Disposition: Recovery Room Indications 89-year-old male with history of Covid infection and prolonged hospitalization now with inability to swallow, with need for feeding tube placement for nutrition. Attempted PEG was unsuccessful. Plan for open gastrostomy tube placement. The risks of the procedure were discussed, all questions were answered, and the patient agreed to proceed with surgery as planned. Description of Procedure The patient was properly identified, consented, and taken to the operating room where he was placed in the supine position . General endotracheal anesthesia was induced. SCDs and a safety belt were placed. Preoperative antibiotics were administered. The patient's abdomen was prepped and draped in the standard sterile fashion. Surgical timeout was performed and all parties were in agreement that this was the correct patient and procedure to be performed and we continued as planned. An upper midline incision was made deepened down to the subcutaneous tissue with electrocautery. The fascia was incised in the midline and entry into the abdomen was confirmed. A single adhesive band of omentum was taken down with electrocautery. The anterior wall of the stomach was grasped with [place] and reach to the abdominal wall easily. This was then mobilized the stomach into the incision and a pursestring suture of 2-0 silk was made. A gastrotomy was performed using cautery. Approximately 2 cm inferior to the left ribs and 2 cm lateral to the rectus muscle an incision was made in the skin. A tonsil was then brought through the peritoneum up through this incision and a 24 [place] gastrostomy tube was then brought through this incision. The tube was then inserted through the gastrostomy that had been created. The balloon was then inflated with 20 cc of sterile saline. A second pursestring suture of 2-0 silk was then placed to invaginate the stomach around the tube. The stomach was then tacked to the peritoneum using 3-0 silk sutures 4. The fascia was then injected with Exparel mixed with bupivacaine. The fascia was closed with 0 PDS suture x2. Incision was irrigated and hemostasis was good. The phalange of the G-tube was sutured down to the abdominal wall with 3-0 nylon sutures. The skin was then closed with 3-0 Vicryl interrupted deep dermal sutures followed by 4-0 Monocryl running subcuticular suture. Dermabond was placed over the incision, and a drain dressing was placed along the G-tube. The patient was taken to the PACU where he recovered without apparent incident. All sponge, instrument and needle counts were correct at the conclusion of the procedure. The patient tolerated the procedure well. The physician's medical assistant float was present and scrubbed for the entirety of the case, and was essential in positioning the patient, prepping and draping, retraction and exposure, placement of the gastrostomy tube, closure of the wounds, and placement of dressings. I attest to the content of the Intraoperative Record and any orders documented therein. Any exceptions are noted below.
[2020-02-10] MEDS ORDERED: INSULIN GLARGINE SOLOSTAR 100 UNITS/ML 3 ML PEN SC ONE (12:30)
--- NOTE | 2020-02-10 12:54 | Anesthesiology Progress Note ---
Date of Service February 10, 2020 Anesthesia Post Procedure Vital Signs Vital Signs: Temp Pulse Pulse Pulse Resp BP BP 02/10/20 12:45 115 H 27 H 118/65 02/10/20 12:35 118 H 25 H 102/52 L 02/10/20 12:25 105 H 30 H 112/71 02/10/20 12:19 99.5 F 111 H 25 H 116/60 02/10/20 10:11 99.1 F 107 H 20 02/10/20 07:37 97.9 F 80 20 02/10/20 03:45 98.4 F 87 20 02/10/20 00:20 56 L 02/10/20 00:11 97.7 F 75 18 02/09/20 19:07 97.7 F 80 17 117/66 02/09/20 18:33 87 114/64 02/09/20 15:00 98.8 F 82 16 105/56 L 02/09/20 14:41 85 111/66 02/09/20 14:30 88 117/64 02/09/20 14:27 97.7 F 88 18 117/64 02/09/20 13:25 92 H 20 103/59 L 02/09/20 13:15 97.3 F L 91 H 18 104/58 L 02/09/20 13:05 104 H 28 H 100/57 L 02/09/20 12:59 97.0 F L 87 23 96/51 L BP Pulse Ox 02/10/20 12:45 91 02/10/20 12:35 93 02/10/20 12:25 94 02/10/20 12:19 93 02/10/20 10:11 117/82 95 02/10/20 07:37 119/64 94 02/10/20 03:45 129/59 L 94 02/10/20 00:20 02/10/20 00:11 140/62 94 02/09/20 19:07 97 02/09/20 18:33 02/09/20 15:00 99 02/09/20 14:41 02/09/20 14:30 02/09/20 14:27 97 02/09/20 13:25 92 02/09/20 13:15 96 02/09/20 13:05 97 02/09/20 12:59 97 Pain Intensity Bilateral Generalized: Pain Intensity: 8 Right Wrist: Pain Intensity: 0 Transfer of Care Handoff Completed per policy Notes Mental Status: alert / awake / arousable and participated in evaluation Patient Amnestic to Procedure: Yes Nausea / Vomiting: adequately controlled Pain: adequately controlled Airway Patency, RR, SpO2: stable & adequate BP & HR: stable & adequate Hydration State: stable & adequate Anesthetic Complications: no major complications apparent and Pt Satisfied with anesthetic care
[2020-02-10] MEDS ORDERED: MoRPHine SULFATE 2 MG/ML CARP IV PRN (13:29)
--- NOTE | 2020-02-10 13:36 | Urology Consultation ---
Date of Consultation February 10, 2020 Assessment & Plan (1) Phimosis: (2) Urinary retention: Patient was prepped and draped in the normal sterile fashion. The catheter which had been in place was removed. Patient was fully assessed and had severe phimosis with inability to retract foreskin with mild edema and balanitis and signs of BXO. The glans was prepped with Betadine. Utilizing lubrication a 16 [place] catheter was placed with good return of urine. The balloon was elevated. This was already attached to a drainage bag. The patient was then cleaned and the Dennis catheter secured. Patient tolerated catheter change. At this point, recommend treatment with topical agents like betamethasone and antifungals for BXO vs phimosis. WIll need to monitor. Can attempt dennis removal when patient improving and stablized. Maintain catheter for now. Will plan outpatient followup and management after discharge. History of Present Illness Attending Physician: Lucinda Leon MD History of Present Illness Consult for urinary issues with incomplete emptying and possible retention during prolonged hospitalization. Patient has been in the hospital for nearly a month and has been in retention. Is recovering from a significant Covid infection. Patient is in the OR to undergo procedure. There was concern for ability change catheter as well as development of phimosis which have been seen by the hospitalist team and urology was consulted to assess. This patient was under anesthesia and a catheter need to be changed at that time I have presented to the OR while the patient was under anesthesia to assist with exchange. Allergies Allergy/AdvReac Type Severity Reaction Status Date / Time No Known Drug Allergies Allergy Verified 01/12/20 14:39 Home Medications Medication Instructions Recorded Confirmed Type aspirin 81 mg tablet,delayed 81 mg PO QAM 03/12/18 01/12/20 History release clonidine HCl 0.1 mg tablet 0.1 mg PO DAILY PRN tab 11/04/18 01/12/20 History pantoprazole 40 mg tablet,delayed 40 mg PO BID #180 tab 02/24/19 01/12/20 Rx release carvedilol 25 mg tablet 25 mg PO BID #180 tab 05/06/19 01/12/20 Rx metformin 1,000 mg tablet 1,000 mg PO BID #180 tab 05/17/19 01/12/20 Rx atorvastatin 80 mg tablet 80 mg PO HS #90 tab 06/21/19 01/12/20 Rx glimepiride 4 mg tablet 4 mg PO BID #180 tab 08/04/19 01/12/20 Rx Januvia 25 mg PO HS 01/08/20 01/12/20 History ondansetron HCl [Zofran] 4 mg PO Q8H PRN 5 Days #20 tab 01/09/20 01/12/20 Rx Patient History Medical History (Updated 02/10/20 @ 14:12 by Lucinda Leon MD) Actinic keratosis Anaplasmosis Atrial premature complex Benign localized prostatic hyperplasia with lower urinary tract symptoms (LUTS) BMI 29.0-29.9,adult CAD (coronary artery disease) Chews tobacco regularly CKD (chronic kidney disease), stage III Constipation Depression Diabetes mellitus Diabetic nephropathy Diabetic peripheral neuropathy [place] lesion of stomach Erythematous papules of skin Gastritis Gastrostomy tube in place GERD (gastroesophageal reflux disease) Helicobacter pylori ab+ (10/27/13) Hiatal hernia History of SCC (squamous cell carcinoma) of skin Hypertension PUD (peptic ulcer disease) Rhabdomyolysis SI joint arthritis Trochanteric bursitis Type 2 diabetes mellitus Unilateral primary osteoarthritis, left hip Urinary hesitancy Visual impairment Vitamin D deficiency Surgical History History of appendectomy History of colonoscopy History of transurethral resection of prostate Family History Unknown Diabetes Coronary heart disease Father Prostate cancer Social History Smoking Status: Never smoker Tobacco Type: Smokeless Tobacco (Dip or Chew) Age Started Using Tobacco: 22; Second Hand Exposure: No; Hx Alcohol Use: No Hx Substance Use: No Preferred Language: Bengali Communication Ability: Effective Visual Impairment: No Limitations Hearing Ability: Use of Hearing Aid 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 Required: No Beliefs That Will Affect Care: None marital status: Current Living Situation: Spouse Current Living Situation Comment: lives in [place] current occupational status: retired 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 Advanced age. Chronic Medical issues. HEENT: Normocephalic. Inspection normal. Normal inspection of face. Normal inspection of neck. Psychologic: Sedated for procedure Respiratory: Nonlabored. No use of accessory muscles. No tachypnea or dyspnea. Cardiovascular: No tachycardia Skin: [place] and Dry. No rashes or visible lesions. Extremities/Lymphatics: No significant edema. Abdomen: Soft Non-distended. No rebound or guarding. : Dennis in place with significant phimotic ring around glans. Results & Data ([facility]) Vital Signs (Past 12 Hours) Vital Signs Temp Pulse Pulse Resp BP BP Pulse Ox 02/10/20 12:55 36.6 C 82 24 103/57 L 91 02/10/20 12:45 115 H 27 H 118/65 91 02/10/20 12:35 118 H 25 H 102/52 L 93 02/10/20 12:25 105 H 30 H 112/71 94 02/10/20 12:19 37.5 C 111 H 25 H 116/60 93 02/10/20 10:11 37.3 C 107 H 20 117/82 95 02/10/20 07:37 36.6 C 80 20 119/64 94 02/10/20 07:00 87 02/10/20 03:45 36.9 C 87 20 129/59 L 94 PG Care Time/CCT Total # of Minutes Spent Total Time Spent with Patient: Total time spent is greater than 50% in coordination of care (as documented) at patient's floor/unit and/or counseling patient: Coding Level of Care Code 00103 Inpt Consult Level 5 Diagnoses Phimosis N47.1 Urinary retention R33.9
--- NOTE | 2020-02-10 13:53 | Hospitalist Progress Note ---
Date of Service February 10, 2020 Assessment & Plan (1) Atrial fibrillation: new diagnosis on 01/31 Afterwards, had sinus with PACs and some brief runs of afib for many days with rates in the 70s-80s without any rate control Went back into rapid atrial fibrillation with rates as high as the 180s on the morning of 02/06 in response to having rigors and a fever Improved rate control with IV Lopressor scheduled 5 mg every 6 hours, now in normal sinus rhythm with PACs Appreciate cardiology consultation He has a bifascicular block and amiodarone would not be a good option at this time Restart therapeutic Lovenox once stable after G-tube placement complete-will d/w Surgery when would be ok - start metoprolol or carvedilol tablets through G-tube once placed (2) Sacral decubitus ulcer: Pressure ulcer of sacral region, unstageable, POA Nurse noted foul odor on 02/06 Wound culture taken-next skin sam -Follow blood cultures-NGTD May be the source of his fevers and rigors on 02/06 Continue wound care, offload pressure (3) Fever: With rigors and fever to 37.6 on the morning of 02/06 IV Tylenol given. No further fevers since that time Could be from worsening sacral decubitus ulcer with foul-smelling wound culture with pinpoint growth Chest x-ray with bilateral infiltrates stable from previous, but could have superimposed bacterial pneumonia on top of previous Covid-19 pneumonia, healthcare associated pneumonia Continue covering for gram-negative pneumonia with cefepime and for MRSA pneumo silke with vancomycin Procalcitonin significantly elevated at 6 and now down to 4 after treating with antibiotics MRSA swab nose negative Follow blood cultures-no growth to date Follow CBC no need for Vanco for PNA coverage but concern still for skin/wound infection of sacrum--> continue Vanco and Cefepime (4) Dysphagia: Has failed numerous swallowing evaluations Had NG tube in place at times which were pulled out by the patient due to intolerance Treated for oral candidiasis with Diflucan and nystatin-continues on nystatin PEG tube placement attempted (after multiple delays for various reasons throughout the week) on 02/08, but stomach too high under the ribs and was unable to be placed Consult general surgery for G-tube placement-plan for 02/09-now placed and procedure went well keep strictly NPO as high aspiration risk Continue PPN until tube feeds at goal-appreciate pharmacy management -Continue IV thiamine -appreciate Dietary orders for tube feeds to start tomorrow (5) Refeeding syndrome: Suspected-occurred afternoon on 01/31 was on PPN, signs/symptoms included sudden dyspnea, hypoxia, atrial fibrillation gave Lasix 40mg IV, stopped PPN, moved to PCU He was completely stable for many days resumed PPN on 02/02 at lower rate of 60mL/hr and lower total volume daily of 1500mL and was tolerating well until had a recurrence of same symptoms on 02/06 which were more likely secondary to fever as above PEG tube placement attempted and failed as above G-tube now in place, will start tube feeds tomorrow -follow CMP, phos, mag (6) Acute respiratory failure with hypoxemia: sudden desaturation in afternoon on 01/31 with hypoxemia requiring 15L ox ymask and BIPAP briefly CXR only showed persistent infiltrates BNP was not markedly elevated he was also in afib with RVR at the time most likely explanation was refeeding syndrome versus rapid atrial fibrillation refeeding syndrome can cause hypoxia, volume overload, arrhythmias moved to PCU since that time Had a recurrent exact episode on 02/06 of rapid atrial fibrillation and hypoxia as above. Is now weaned down to 3-4 L Chest x-ray with persistent bilateral airspace opacities not worse than previous Treating empirically with cefepime and vancomycin for bacterial pneumonia Continue to wean off oxygen-remains on 4L (7) Urinary retention: dennis pulled 02/02 since he was alert and communicating, getting OOB to chair he became agitated, swinging at nurses and staff on 02/02 and 02/03 straight cath for 600mL Replaced dennis catheter on 02/03 as he will likely continue to retain and will be a source of agitation can follow up with urology as outpatient, keep dennis on discharge -We will plan to add tamsulosin once G tube placed Urology consulted now for phimosis as well (8) Metabolic encephalopathy: Due to COVID 19, delirium-improved significantly overall compared to previous descriptions of pulling out multiple lines/tubes and having to wear mitts as well as receiving Ativan He is now been mentating fairly well for the last week - Continue treatment with redirection, supportive care, Dennis catheter for urinary retention -Also had no documented bowel movement in 23 days but now having regular bowel movements (9) Pneumonia due to COVID-19 virus: Chest x-ray on admission had progressed significantly since his previous hospital stay a few days prior. Now back on oxygen as above for possible recurrent bacterial pneumonia He did not receive remdesivir due to renal insufficiency and he was 10+ days out from illness when he presented. repeat rapid COVID is NEGATIVE and he is off precautions Chest x-ray with persistent bilateral airspace opacities-treating empirically with cefepime and vancomycin as above and could have bacterial pneumonia Procalcitonin is elevated at 6 and now trending downward (10) CKD (chronic kidney disease), stage III: Baseline CrCL 30s/40s. - Cr is stable -Avoid nephrotoxins -renally dose meds when appropriate -follow BMP (11) Coronary artery disease: No evidence of ACS, has a history of stents placed in 2019. No chest pain -Home meds of Coreg, ASA, statin all on hold while n.p.o. Continue IV metoprolol scheduled Plan restart home meds once G tube placed and able to be used tomorrow (12) Type 2 diabetes mellitus: Pharmacy glycemic consult placed. 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 performed prior to G-tube Asymptomatic Prob 2/2 Afib and being off anticoagulation at times -restart Lovenox when ok with Surgery (17) PUD (peptic ulcer disease): noted on EGD to have multiple duodenal nonbleeding cratered ulcers and grade 3 esophagitis -continue PPI bid (18) Gastrostomy tube in place: as above, placed on 02/09 Appreciate Surgery consult wound care as per Surgery, WOund care (19) Goals of care, counseling/discussion: long discussion with family regarding goals of care on 01/29 and 01/30 and 02/01 by previous hospitalist they want him to get nutrition at this point, short term goal of improving nutrition to help improve strength they are on board with starting tube feeds they want him to come home but also want him to get stronger Patient wants to go home, however family wants to see how he does after he starts on tube feeds but think that they will be able to bring him home with /7 care and home health Now s/p G tube placement (20) Phimosis: Seen by Urology, reduced while under anesthesia I believe on 02/09 Awaiting official Urol consult (21) DVT prophylaxis: Lovenox 1mg/kg BID due to afib is on hold for G-tube placement Restart therapeutic Lovenox dosing when okay with surgery after G-tube placement Disposition-continued stay on PCU Condition is stable but overall prognosis guarded Remains full code Palliative care is following Admission and Anticipated Discharge Date Admission Date: January 12, 2020 Subjective Pt had G-tube placed today without difficulty. Tolerated procedure well and I saw him afterwards. He is mentating. Has some continued pain in his penis and had Dennis replaced, Urology I believe reduced his phimosis while he was under anesthesia. He is on some O2 and in no resp distress, denies CP. Tele with Afib and NSR, PACs, rates 70s-120s Discussed care with Surgery, Cardiology Review of Systems Review of Systems: All systems reviewed & are unremarkable except as noted in HPI & below Physical Exam Constitutional: WD/WN, vitals as above + ill appearing; no acute distress Eyes: + anicteric sclerae Neck: trachea midline, no thyromegaly Respiratory: Auscultation: + crackles (At lower lung pro bilaterally); no rhonchi and no wheezes Cardiovascular: RRR, no murmur, no edema Gastrointestinal (Abdomen): normal bowel sounds, soft, nontender, no hepatosplenomegaly Inspection/Auscultation: + abdomen abnormal to inspection (G-tube in place, dressing overlying this) Musculoskeletal: Extremities: extremities normal to inspection; no cyanosis and no clubbing Skin: no rashes, warm and dry + ecchymosis (Numerous all over arms) Neurologic: moves all extremities and awake; no focal motor deficits Psychiatric: Orientation: alert and cooperative Genitourinary: + edematous penis (mild,foreskin reducible and small amount of blood, Dennis in place) Lymphatic: no lymphedema Results & Data Results & Data ([facility]) Vital Signs (Past 12 Hours) Vital Signs Temp Pulse Pulse Resp BP BP Pulse Ox 02/10/20 13:47 74 106/61 02/10/20 13:30 37.4 C 100 H 20 111/62 96 02/10/20 12:55 36.6 C 82 24 103/57 L 91 02/10/20 12:45 115 H 27 H 118/65 91 02/10/20 12:35 118 H 25 H 102/52 L 93 02/10/20 12:25 105 H 30 H 112/71 94 02/10/20 12:19 37.5 C 111 H 25 H 116/60 93 02/10/20 10:11 37.3 C 107 H 20 117/82 95 02/10/20 07:37 36.6 C 80 20 119/64 94 02/10/20 07:00 87 02/10/20 03:45 36.9 C 87 20 129/59 L 94 Laboratory Results 02/09/20 06:16 02/10/20 05:45 BCs NGTD Diagnostic Findings CT A/P reviewed-splenic infarcts PG Care Time/CCT Total # of Minutes Spent Total Time Spent with Patient: Total time spent is greater than 50% in coordination of care (as documented) at patient's floor/unit and/or counseling patient: Coding Level of Care Code 55587 Subseq Hosp Care Lvl 3 Diagnoses Atrial fibrillation I48.91 Sacral decubitus ulcer L89.159 Fever R50.9 Dysphagia R13.10 Refeeding syndrome E87.8 Acute respiratory failure with hypoxemia J96.01 Urinary retention R33.9 Metabolic encephalopathy G93.41 Pneumonia due to COVID-19 virus U07.1; J12.89 CKD (chronic kidney disease), stage III N18.3 Coronary artery disease I25.10 Associated angina: without angina Coronary Disease-Associated Artery/Lesion type: circle artery [place] vs. transplanted heart: circle heart Type 2 diabetes mellitus E11.22; N18.3 Chronic kidney disease stage: stage 3 (moderate) Diabetes mellitus complication detail: with chronic kidney disease Diabetes mellitus complication status: with kidney complications Diabetes mellitus snf insulin use: without snf use Hypertension I10 Hypertension type: essential hypertension Hypoalbuminemia due to protein-calorie malnutrition E88.09; E46 Pressure ulcer, heel L89.609 Splenic infarct D73.5 PUD (peptic ulcer disease) K27.[address] Z93.1 Goals of care, counseling/discussion Z71.89 Phimosis N47.1 DVT prophylaxis Z29.9 (1) Type 2 diabetes mellitus Chronic kidney disease stage: stage 3 (moderate) Diabetes mellitus complication detail: with chronic kidney disease Diabetes mellitus complication status: with kidney complications 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 transplanted heart: circle heart Qualified Code(s): I25.10 - Atherosclerotic heart disease of circle coronary artery without angina pectoris (3) Hypertension Hypertension type: essential hypertension Qualified Code(s): I10 - Essential (primary) hypertension
[2020-02-10] MEDS: POTASSIUM CHLORIDE / WTR 10 MEQ/100 ML PLCT IV SCH ×2 (13:54→14:55)
--- NOTE | 2020-02-10 14:06 | Pharmacy Report ---
Pharmacy Glycemic Short Note 2 - Date of Service February 10, 2020 - Glycemic Short BSG Results (Last 24 hours): 02/09/20 02/09/20 02/10/20 18:07 20:21 00:06 Glucose POC Glucose 94 129 H 108 H 02/10/20 02/10/20 02/10/20 05:45 06:03 09:46 Glucose 127 H POC Glucose 130 H 148 H 02/10/20 12:20 Glucose POC Glucose 162 H OUTPATIENT ANTIDIABETIC REGIMEN: * amaryl, metformin, januvia * HbA1c: 9.7% (11/29/19) ASSESSMENT: 02/09: * Patient remains on PPN. Fibersource tube feeds ordered to start this afternoon at 15 mls/hr (titrate up to goal of 65 ml/hr) * Excellent glycemic control over the past 24 hours. Patient received 18 units of regular insulin in the PPN yesterday (no basal or novolog). * BSGs trending upward today. Patient did not receive basal insulin this AM per scale. I have ordered a small dose to be given with lunch, then continue BID dosing per scale. * Will add carbohydrate coverage to novolog order to cover for tube feeds: 2-5 units q6 based on infusion rate. 02/08: * PPN will be resumed today at 1600. Patient taken to OR today for PEG tube placement - may be starting trickle feeds. * Patient required no basal insulin yesterday while TPN was held. Continued to hold this am for BSG 88 mg/dL. * PPN contains 85 grams of dextrose and 18 units of regular insulin. 02/07: * PEG tube placement and PPN remain on hold. Preliminary BC reported no growth to date. * BSGs acceptable over the past 24 hours. Insulin needs decreased significantly without PPN on board (33 units/day -> 12 units/day) * Continue reduced dose of Lantus. 02/06: * PEG placement originally planned for today - now on hold * PPN placed on hold for Afib and rigors - will scale back on insulin considerably * Vancomycin and Zosyn started empirically for possible sepsis 02/05: * BSGs yesterday of 120, 135, 164, and 185 mg/dL * Received 20 units of Lantus, 3 units of bolus, and 17 units of IV insulin via TPN * Dextrose content of TPN will be increased to 90 g today -> will increase i nsulin in TPN to 20 units PLAN FOR INPATIENT GLYCEMIC CONTROL: * Hold outpatient oral diabetes medications * Basal insulin * Lantus 5 units SQ with lunch, then continue per scale BID: * 0 units for BSG 160 mg/dL or less * 5 units for BSG greater than 160 mg/dL * Bolus insulin * Novolog SQ Q 6 hrs * Goal range: 120 -160 mg/dL * Correction factor: 15 mg/dL/unit * Carb coverage based on tube feed rate: 15 mls/hr = 2 units 25 mls/hr = 3 units 35 mls/hr = 4 units 45 mls/hr or more = 5 units * Plus 18 units of regular insulin in PPN to cover 85 grams of dextrose
--- NOTE | 2020-02-10 14:15 | Cardiology Progress Note ---
Date of Service February 10, 2020 Assessment & Plan (1) Atrial fibrillation: Is predominant rhythm appears to be sinus with frequent atrial ectopy. Overall rate control has been improved. He is currently on scheduled intravenous metoprolol, once his PEG tube is in place he can be switched back to oral beta-blockers. I would start with low-dose carvedilol, perhaps 3.125 mg twice daily given his relatively low blood pressure. This can be escalated quite rapidly if he tolerates that dose. (2) CAD (coronary artery disease): I would resume aspirin and atorvastatin once his PEG tube is available for use. (3) Peripheral arterial disease: No current signs of ischemia Admission and Anticipated Discharge Date Admission Date: January 12, 2020 Subjective This morning the patient had no specific complaints. He did not report pain at any location. He denies breathing difficulty. He reports having been up in a chair for some time yesterday. No sense of palpitation. Review of Systems Review of Systems: Per HPI Physical Exam Physical Exam: The patient is alert. He answered questions appropriately HEENT: Pupils are equal and reactive to light and accommodation. Extraocular movements are intact. The sclerae are anicteric. Poor dentition Neuro: Cranial nerves intact Lungs: Coarse upper respiratory sounds and poor excursion. Unable to complete the examination S the patient did not follow commands. Cardiac: Heart demonstrates an irregular rhythm. Elevated heart rate. Normal S1 and S2. No murmurs on examination. Pulses: The patient has palpable radial pulses bilaterally that are equal in intensity Extremities: There was no evidence of hypoperfusion. There is no cyanosis or clubbing. There is no edema. Skin: I did not appreciate any rashes on examination today. Results & Data ([facility]) Vital Signs (Past 12 Hours) Vital Signs Temp Pulse Pulse Resp BP BP BP 02/10/20 13:50 74 106/61 02/10/20 13:47 74 106/61 02/10/20 13:30 37.4 C 100 H 20 111/62 02/10/20 12:55 36.6 C 82 24 103/57 L 02/10/20 12:45 115 H 27 H 118/65 02/10/20 12:35 118 H 25 H 102/52 L 02/10/20 12:25 105 H 30 H 112/71 02/10/20 12:19 37.5 C 111 H 25 H 116/60 02/10/20 10:11 37.3 C 107 H 20 117/82 02/10/20 07:37 36.6 C 80 20 119/64 02/10/20 07:00 87 02/10/20 03:45 36.9 C 87 20 129/59 L Pulse Ox 02/10/20 13:50 02/10/20 13:47 02/10/20 13:30 96 02/10/20 12:55 91 02/10/20 12:45 91 02/10/20 12:35 93 02/10/20 12:25 94 02/10/20 12:19 93 02/10/20 10:11 95 02/10/20 07:37 94 02/10/20 07:00 02/10/20 03:45 94 Laboratory Results Abnormal Lab Results 02/09/20 02/09/20 02/09/20 17:41 18:07 20:21 Sodium Potassium Chloride Carbon Dioxide Anion Gap BUN Creatinine Est Cr Clr Drug Dosing Est GFR ( Amer) Est GFR (Non-Af Amer) BUN/Creatinine Ratio Glucose POC Glucose 94 129 H Calcium Phosphorus Magnesium Nasal Screen MRSA (PCR) Negative Vancomycin Trough 02/09/20 02/10/20 02/10/20 22:58 00:06 05:45 Sodium 146 H Potassium 3.6 Chloride 115 H Carbon Dioxide 22 Anion Gap 9.0 BUN 28 H Creatinine 1.10 Est Cr Clr Drug Dosing 49.7 Est GFR ( Amer) 69.6 Est GFR (Non-Af Amer) 60.0 BUN/Creatinine Ratio 25.4 H Glucose 127 H POC Glucose 108 H Calcium 8.5 Phosphorus 2.5 D Magnesium 1.9 Nasal Screen MRSA (PCR) Vancomycin Trough 18.7 02/10/20 02/10/20 02/10/20 06:03 09:46 12:20 Sodium Potassium Chloride Carbon Dioxide Anion Gap BUN Creatinine Est Cr Clr Drug Dosing Est GFR ( Amer) Est GFR (Non-Af Amer) BUN/Creatinine Ratio Glucose POC Glucose 130 H 148 H 162 H Calcium Phosphorus Magnesium Nasal Screen MRSA (PCR) Vancomycin Trough 02/10/20 13:45 Sodium Potassium Chloride Carbon Dioxide Anion Gap BUN Creatinine Est Cr Clr Drug Dosing Est GFR ( Amer) Est GFR (Non-Af Amer) BUN/Creatinine Ratio Glucose POC Glucose 159 H Calcium Phosphorus Magnesium Nasal Screen MRSA (PCR) Vancomycin Trough PG Care Time/CCT Total # of Minutes Spent Total Time Spent with Patient: Total time spent is greater than 50% in coordination of care (as documented) at patient's floor/unit and/or counseling patient: Coding Level of Care Code 42987 Subseq Hosp Care Lvl 2 Diagnoses Atrial fibrillation I48.91 CAD (coronary artery disease) I25.10 Peripheral arterial disease I73.9
--- NOTE | 2020-02-10 15:13 | Pharmacy Report ---
Pharmacy Abx Dose Short Note - Date of Service February 10, 2020 - Assessment & Plan Assessment 89 year old M ordered empiric vancomycin and cefepime for coverage of sacral decubitus and pneumonia * today is day #4 of broad spectrum antibiotics * 03/14 BC reported no growth to date. coccyx culture reported moderate counts of mixed probable skin sam * patient was previously on zosyn -> changed to cefepime on 02/07 due to Scr trending upward in the setting of advanced age and CKD Plan Vancomycin * Trough level of 18.7 mcg/mL is therapeutic * Continue dose of 1000 mg IV every 18 hours * Goal trough level: 15 mcg/mL * Repeat trough level on 02/10 @1130 to ensure level does not become supratherapeutic Pharmacy will continue to follow and will adjust dose/frequency as necessary. Thank you.
[2020-02-10] MEDS ORDERED: PERIPHERAL PN IV SCH (16:00)
[2020-02-10] MEDS ORDERED: TPN IV SCH (16:00)
[2020-02-10] MEDS: CLOTRIMAZOLE/BETAMETHASONE CR 15 GM TUBE EXT SCH (21:25)
[2020-02-11] MEDS: INSULIN ASPART 100 UNITS/ML 3 ML PEN SC SCH ×4 (00:49→18:04)
[2020-02-11] MEDS: METOPROLOL TARTRATE 1 MG/ML VIAL IV SCH ×2 (00:51→06:05)
[2020-02-11] MEDS: CEFEPIME 2,000 MG in SYRINGE 0 ML IV SCH ×2 (04:06→15:05)
[2020-02-11 06:56] LABS: Basophils # (auto) 0.02 K/uL (0-0.2); Basophils % (auto) 0.2 %; Eosinophils # (auto) 0.45 K/uL (0-0.5); Eosinophils % (auto) 4.4 %; Hematocrit (blood only) 35.3 % (42-52); Hemoglobin 11.1 g/dL (14.0-18.0); Immature Granulocytes # (auto) 0.06 K/uL (0.00-0.02); Immature Granulocytes % (auto) 0.6 %; Lymphocytes # (auto) 0.67 K/uL (1.2-3.4); Lymphocytes % (auto) 6.5 %; Mean Corpuscular Hemoglobin 30.9 pg (25-34); Mean Corpuscular Hgb Conc 31.4 g/dL (32-36); Mean Corpuscular Volume 98.3 fL (80-100); Mean Platelet Volume 10.2 fL (7.4-10.4); Monocytes # (auto) 1.19 K/uL (0.11-0.59); Monocytes % (auto) 11.5 %; Neutrophils # (auto) 7.92 K/uL (1.4-6.5); Neutrophils % (auto) 76.8 %; Platelet Count 264 K/uL (130-400); RDW Coefficient of Variation 14.5 % (11.5-14.5); RDW Standard Deviation 51.6 fL (36.4-46.3); Red Blood Count 3.59 M/uL (4.7-6.1); White Blood Count 10.31 K/uL (4.8-10.8)
[2020-02-11 07:24] LABS: Albumin Level 1.6 gm/dl (3.4-5.0); BUN Creatinine Ratio 24.4 (10-20); Calcium 8.2 mg/dl (8.5-10.1); Creatinine Clr Calc Pharmacy 47.4 ml/min; Est GFR (African American) 64.6; Est GFR (Non-African American) 55.7; Magnesium 2.2 mg/dl (1.8-2.4); Potassium 4.2 mmol/L (3.5-5.1)
[2020-02-11 07:28] LABS: Albumin Globulin Ratio 0.3 (0.9-2); Bilirubin,Total 0.4 mg/dl (0.2-1); Phosphorus 2.7 mg/dl (2.5-4.9); Total Protein 6.6 gm/dl (6.4-8.2)
[2020-02-11] MEDS ORDERED: FIBERSOURCE HN 1.2 CAL 1000 ML BAG GT SCH (08:00)
[2020-02-11] MEDS: PANTOprazole 40 MG in SYRINGE 0 ML IV SCH ×2 (08:21→21:18)
[2020-02-11] MEDS: NYSTATIN SUSP 500,000 U/5 ML UDC PO SCH ×2 (08:22→12:05)
[2020-02-11] MEDS: THIAMINE HCL 100 MG in SYRINGE 9 ML IV SCH (08:22)
[2020-02-11] MEDS: INSULIN GLARGINE SOLOSTAR 100 UNITS/ML 3 ML PEN SC SCH ×2 (08:23→21:16)
[2020-02-11] MEDS: CLOTRIMAZOLE/BETAMETHASONE CR 15 GM TUBE EXT SCH ×2 (08:23→21:16)
--- NOTE | 2020-02-11 09:19 | Surgery Progress Note ---
Date of Service February 11, 2020 Assessment & Plan (1) Gastrostomy tube in place: tube in place doing well OK to use tube for nutrition and meds per primary team Admission and Anticipated Discharge Date Admission Date: January 12, 2020 Subjective POD #1 open gastrostomy tube no complaints pain controlled Review of Systems Constitutional: no fever and no chills Respiratory: no dyspnea Cardiovascular: no chest pain Gastrointestinal: + abdominal pain; no nausea and no vomiting Genitourinary: no dysuria Physical Exam Constitutional: no acute distress Neck: trachea midline Respiratory: normal respiratory effort Auscultation: + diminished lung sounds Cardiovascular: Rate/Rhythm: regular rate and regular rhythm Gastrointestinal (Abdomen): Inspection/Auscultation: abdomen not distended Percussion/Palpation: + abdomen tender and abdomen soft; no guarding and abdomen not rigid dressing over g-tube without drainage Skin: no rashes, warm and dry Results & Data ([facility]) Vital Signs (Past 12 Hours) Vital Signs Temp Pulse Pulse Resp BP BP Pulse Ox 02/11/20 07:15 37 C 75 18 122/71 96 02/11/20 06:05 91 H 116/61 02/11/20 04:00 36.4 C L 91 H 21 122/58 L 96 02/11/20 00:51 85 100/61 02/10/20 23:14 37.4 C 96 H 22 121/61 94
[2020-02-11] MEDS: ATORVASTATIN 40 MG TAB GT SCH (10:39)
[2020-02-11] MEDS: carvediloL 3.125 MG TAB GT SCH ×2 (10:39→21:15)
[2020-02-11] MEDS: ASPIRIN 81 MG ECTAB PO SCH (10:40)
--- NOTE | 2020-02-11 10:55 | Cardiology Progress Note ---
Date of Service February 11, 2020 Assessment & Plan (1) Atrial fibrillation: Is predominant rhythm appears to be sinus with frequent atrial or possible junctional ectopy. Overall rate control has been improved. He is currently on scheduled intravenous metoprolol. When it is determined that use of his PEG tube is safe, switching him to an oral regimen of beta-blockers would be recommended. Blood pressures have been relatively low in starting with low-dose carvedilol 3.125 mg twice daily seems reasonable. (2) CAD (coronary artery disease): I would resume aspirin and atorvastatin once his PEG tube is available for use. (3) Peripheral arterial disease: No current signs of ischemia Admission and Anticipated Discharge Date Admission Date: January 12, 2020 Subjective The patient did report some mild abdominal discomfort at the surgical site today. He did not report any other pain. He denies breathing difficulties. Review of Systems Review of Systems: Per HPI. Physical Exam Physical Exam: The patient is alert. He answered questions appropriately. HEENT: Pupils are equal and reactive to light and accommodation. Extraocular movements are intact. The sclerae are anicteric. Poor dentition Neuro: Cranial nerves intact Lungs: Bibasilar crackles. Normal respiratory effort. Cardiac: Heart demonstrates an irregular rhythm. Elevated heart rate. Normal S1 and S2. No murmurs on examination. Abdomen: Peg tube in place. Pulses: The patient has palpable radial pulses bilaterally that are equal in intensity Extremities: There was no evidence of hypoperfusion. There is no cyanosis or clubbing. There is no edema. Skin: I did not appreciate any rashes on examination today. Results & Data ([facility]) Vital Signs (Past 12 Hours) Vital Signs Temp Pulse Pulse Resp BP BP Pulse Ox 02/11/20 07:15 37 C 75 18 122/71 96 02/11/20 06:05 91 H 116/61 02/11/20 04:00 36.4 C L 91 H 21 122/58 L 96 02/11/20 00:51 85 100/61 02/10/20 23:14 37.4 C 96 H 22 121/61 94 Laboratory Results Abnormal Lab Results 02/10/20 02/10/20 02/10/20 12:20 13:45 18:02 WBC RBC Hgb Hct MCV MCH MCHC RDW Std Deviation RDW Coeff of Allie Plt Count MPV Immature Gran % (Auto) Neut % (Auto) Lymph % (Auto) [place] % (Auto) Eos % (Auto) Baso % (Auto) Neut # (Auto) Lymph # (Auto) [place] # (Auto) Eos # (Auto) Baso # (Auto) Immature Gran # (Auto) Sodium Potassium Chloride Carbon Dioxide Anion Gap BUN Creatinine Est Cr Clr Drug Dosing Est GFR ( Amer) Est GFR (Non-Af Amer) BUN/Creatinine Ratio Glucose POC Glucose 162 H 159 H 207 H Calcium Phosphorus Magnesium Total Bilirubin AST ALT Alkaline Phosphatase Total Protein Albumin Globulin Albumin/Globulin Ratio 02/10/20 02/11/20 02/11/20 20:42 00:07 05:59 WBC RBC Hgb Hct MCV MCH MCHC RDW Std Deviation RDW Coeff of Allie Plt Count MPV Immature Gran % (Auto) Neut % (Auto) Lymph % (Auto) [place] % (Auto) Eos % (Auto) Baso % (Auto) Neut # (Auto) Lymph # (Auto) [place] # (Auto) Eos # (Auto) Baso # (Auto) Immature Gran # (Auto) Sodium Potassium Chloride Carbon Dioxide Anion Gap BUN Creatinine Est Cr Clr Drug Dosing Est GFR ( Amer) Est GFR (Non-Af Amer) BUN/Creatinine Ratio Glucose POC Glucose 151 H 150 H 158 H Calcium Phosphorus Magnesium Total Bilirubin AST ALT Alkaline Phosphatase Total Protein Albumin Globulin Albumin/Globulin Ratio 02/11/20 02/11/20 02/11/20 06:23 06:23 08:19 WBC 10.31 RBC 3.59 L Hgb 11.1 L Hct 35.3 L MCV 98.3 MCH 30.9 MCHC 31.4 L RDW Std Deviation 51.6 H RDW Coeff of Allie 14.5 Plt Count 264 MPV 10.2 Immature Gran % (Auto) 0.6 Neut % (Auto) 76.8 Lymph % (Auto) 6.5 [place] % (Auto) 11.5 Eos % (Auto) 4.4 Baso % (Auto) 0.2 Neut # (Auto) 7.92 H Lymph # (Auto) 0.67 L [place] # (Auto) 1.19 H Eos # (Auto) 0.45 Baso # (Auto) 0.02 Immature Gran # (Auto) 0.06 H Sodium 142 Potassium 4.2 D Chloride 115 H Carbon Dioxide 24 Anion Gap 4.0 BUN 29 H Creatinine 1.17 Est Cr Clr Drug Dosing 47.4 Est GFR ( Amer) 64.6 Est GFR (Non-Af Amer) 55.7 BUN/Creatinine Ratio 24.4 H Glucose 166 H POC Glucose 173 H Calcium 8.2 L Phosphorus 2.7 Magnesium 2.2 Total Bilirubin 0.4 AST 15 ALT 12 Alkaline Phosphatase 66 Total Protein 6.6 Albumin 1.6 L Globulin 5.0 H Albumin/Globulin Ratio 0.3 L PG Care Time/CCT Total # of Minutes Spent Total Time Spent with Patient: Total time spent is greater than 50% in cooler servicer rdination of care (as documented) at patient's floor/unit and/or counseling patient: Coding Level of Care Code 18538 Subseq Hosp Care Lvl 2 Diagnoses Atrial fibrillation I48.91 CAD (coronary artery disease) I25.10 Peripheral arterial disease I73.9
--- NOTE | 2020-02-11 10:56 | Hospitalist Progress Note ---
Date of Service February 11, 2020 Assessment & Plan (1) Atrial fibrillation: new diagnosis on 01/31 Afterwards, had sinus with PACs and some brief runs of afib for many days with rates in the 70s-80s without any rate control Went back into rapid atrial fibrillation with rates as high as the 180s on the morning of 02/06 in response to having rigors and a fever Improved rate control with IV Lopressor scheduled 5 mg every 6 hours, now in normal sinus rhythm with PACs and some intermittent proximal-isms of atrial fibrillation Appreciate cardiology consultation He has a bifascicular block and amiodarone would not be a good option at this time Restart therapeutic Lovenox now 24 hours after G-tube placement complete as per discussion with surgeon-Will convert to Eliquis upon discharge-need to check to see if can be placed through G-tube - start carvedilol 3.125 mg per G-tube twice daily, titrate up as needed on carvedilol for rate control if blood pressure can tolerate -Change IV scheduled Lopressor to as needed for heart rate greater than 120 (2) Sacral decubitus ulcer: Pressure ulcer of sacral region, unstageable, POA Nurse noted foul odor on 02/06 Wound culture taken-growing skin sam only -Follow blood cultures-NGTD May be the source of his fevers and rigors on 02/06 Continue wound care, offload pressure (3) Fever: With rigors and fever to 37.6 on the morning of 02/06 IV Tylenol given. Thought to be from worsening sacral decubitus ulcer with foul-smelling wound culture with normal skin sam Chest x-ray with bilateral infiltrates stable from previous, but could have superimposed bacterial pneumonia on top of previous Covid-19 pneumonia, healthcare associated pneumonia Continue antibiotics for gram-negative pneumonia with cefepime and for MRSA pneumonia with vancomycin Antibiotics will also cover for infected sacral decubitus Procalcitonin significantly elevated at 6 and now down to 4 after treating with antibiotics MRSA swab nose negative, but continuing vancomycin as MRSA swab was collected 2 days after starting antibiotics Had another low-grade temperature without rigors on 02/10-24 hours postop, could just be atelectasis Follow blood cultures-no growth to date -Give IV Tylenol for fever Follow CBC -Continue cefepime and vancomycin -Start incentive spirometry every hour (4) Dysphagia: Has failed numerous swallowing evaluations Had NG tube in place at times which were pulled out by the patient due to intolerance Treated for oral candidiasis with Diflucan and nystatin PEG tube placement attempted (after multiple delays for various reasons throughout the week) on 02/08, but stomach too high under the ribs and was unable to be placed Consult general surgery for G-tube placement-plan for 02/09-now placed and pro cedure went well keep strictly NPO as high aspiration risk Continue PPN until tube feeds at goal-appreciate pharmacy management -Continue IV thiamine -appreciate Dietary orders for tube feeds to start today-slow start and gradually increase, check residuals Follow CMP, magnesium, phosphorus, CBC (5) Refeeding syndrome: Suspected-occurred afternoon on 01/31 was on PPN, signs/symptoms included sudden dyspnea, hypoxia, atrial fibrillation gave Lasix 40mg IV, stopped PPN, moved to PCU He was completely stable for many days resumed PPN on 02/02 at lower rate of 60mL/hr and lower total volume daily of 1500mL and was tolerating well until had a recurrence of same symptoms on 02/06 which were more likely secondary to fever as above PEG tube placement attempted and failed as above G-tube now in place, starting tube feeds today as above -follow CMP, phos, mag (6) Acute respiratory failure with hypoxemia: sudden desaturation in afternoon on 01/31 with hypoxemia requiring 15L oxymask and BIPAP briefly CXR only showed persistent infiltrates BNP was not markedly elevated he was also in afib with RVR at the time most likely explanation was refeeding syndrome versus rapid atrial fibrillation refeeding syndrome can cause hypoxia, volume overload, arrhythmias moved to PCU since that time Had a recurrent exact episode on 02/06 of rapid atrial fibrillation and hypoxia as above. Is now weaned down to 3-4 L Chest x-ray with persistent bilateral airspace opacities not worse than previous Treating empirically with cefepime and vancomycin for bacterial pneumonia Continue to wean off oxygen-remains on 4L (7) Urinary retention: dennis pulled 02/02 since he was alert and communicating, getting OOB to chair he became agitated, swinging at nurses and staff on 02/02 and 02/03 straight cath for 600mL Replaced dennis catheter on 02/03 as he will likely continue to retain and will be a source of agitation can follow up with urology as outpatient, keep dennis on discharge -We will plan to add tamsulosin once G tube placed if blood pressure can tolerate-we will wait until tomorrow to make sure he can tolerate Coreg Urology consulted now for phimosis as well (8) Metabolic encephalopathy: Due to COVID 19, delirium-improved significantly overall compared to previous descriptions of pulling out multiple lines/tubes and having to wear mitts as well as receiving Ativan He is now been mentating fairly well for the last week - Continue treatment with redirection, supportive care, Dennis catheter for urinary retention -Previously had no documented bowel movement for a 23 day period, but now having regular bowel movements -Add liquid Colace to tube feeds if needed (9) Pneumonia due to COVID-19 virus: Chest x-ray on admission had progressed significantly since his previous hospital stay a few days prior. Now back on oxygen as above for possible recurrent bacterial pneumonia He did not receive remdesivir due to renal insufficiency and he was 10+ days out from illness when he presented. repeat rapid COVID is NEGATIVE and he is off precautions Chest x-ray with persistent bilateral airspace opacities-treating empirically with cefepime and vancomycin as above and could have bacterial pneumonia Procalcitonin is elevated at 6 and then trended downward (10) CKD (chronic kidney disease), stage III: Baseline CrCL 30s/40s. - Cr is stable -Avoid nephrotoxins -renally dose meds when appropriate -follow BMP (11) Coronary artery disease: No evidence of ACS, has a history of stents placed in 2019. No chest pain -Now with G-tube in place-restart Coreg at a lower dose, ASA, and statin -DC IV Lopressor as above (12) Type 2 diabetes mellitus: Pharmacy glycemic consult placed. 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 performed prior to G-tube Asymptomatic Prob 2/2 Afib and being off anticoagulation at times -restart Lovenox this evening (17) PUD (peptic ulcer disease): noted on EGD to have multiple duodenal nonbleeding cratered ulcers and grade 3 esophagitis -continue PPI IV bid for now, and then convert to lansoprazole through the G- tube in 1 more day (18) Gastrostomy tube in place: as above, placed on 02/09 Appreciate Surgery consult wound care as per Surgery, WOund care (19) Phimosis: Seen by Urology, was not able to be reduced Appreciate Urol consult-start betamethasone/clotrimazole twice daily to the penis -Follow-up with urology Maintain Dennis catheter (20) Goals of care, counseling/discussion: Multiple long discussions were had with family regarding goals of care during this hospitalization they want him to get nutrition at this point, short term goal of improving nutrition to help improve strength they are on board with starting tube feeds Now s/p G tube placement (21) DVT prophylaxis: Lovenox 1mg/kg BID due to afib Disposition-continued stay on PCU, slow improvements, eventually to [facility]-referral will be made once medically stable Condition is stable but overall prognosis guarded Remains full code Palliative care is following remotely Admission and Anticipated Discharge Date Admission Date: January 12, 2020 Subjective Patient reports feeling well today. Denies chest pain or shortness of breath. Remains on a low amount of oxygen. He denies any abdominal pain. He is not confused at all but remains on a one-to-one for safety because of his G-tube and history of pulling out lines. Telemetry with normal sinus rhythm with rates in the 90s in atrial fibrillation with rates in the 70s to 80s Later in the afternoon, the nurse messaged me that the patient had a low-grade temperature but no chills or rigors as before I discussed his case with the surgeon today who stated that it is okay to resta rt the therapeutic Lovenox dosing if greater than 24 hours from the time of his surgery Review of Systems Review of Systems: All systems reviewed & are unremarkable except as noted in HPI & below Physical Exam Constitutional: WD/WN, vitals as above no acute distress Eyes: + anicteric sclerae ENMT: Mouth: + oropharynx abnormality (Moist mucous membranes) Neck: trachea midline, no thyromegaly Respiratory: normal respiratory effort, lungs clear to auscultation Cardiovascular: RRR, no murmur, no edema Heart Sounds: no murmur Extremities: no edema Chest (Breasts): Chest: normal inspection of chest Gastrointestinal (Abdomen): normal bowel sounds, soft, nontender, no hepatosplenomegaly Inspection/Auscultation: + abdomen abnormal to inspection (G-tube in place, dressing overlying this) Musculoskeletal: Extremities: extremities normal to inspection; no cyanosis and no clubbing Skin: no rashes, warm and dry + ecchymosis (Numerous all over arms) Neurologic: moves all extremities and awake; no focal motor deficits Psychiatric: Orientation: alert and cooperative Genitourinary: + phimosis (With less edema today) Lymphatic: no lymphedema Results & Data Results & Data ([facility]) Vital Signs (Past 12 Hours) Vital Signs Temp Pulse Pulse Resp BP BP Pulse Ox 02/11/20 07:15 37 C 75 18 122/71 96 02/11/20 06:05 91 H 116/61 02/11/20 04:00 36.4 C L 91 H 21 122/58 L 96 02/11/20 00:51 85 100/61 02/10/20 23:14 37.4 C 96 H 22 121/61 94 Laboratory Results 02/11/20 06:23 02/11/20 06:23 PG Care Time/CCT Total # of Minutes Spent Total Time Spent with Patient: Total time spent is greater than 50% in coordination of care (as documented) at patient's floor/unit and/or counseling patient: Coding Level of Care Code 03312 Subseq Hosp Care Lvl 3 Diagnoses Atrial fibrillation I48.91 Sacral decubitus ulcer L89.159 Fever R50.9 Dysphagia R13.10 Refeeding syndrome E87.8 Acute respiratory failure with hypoxemia J96.01 Urinary retention R33.9 Metabolic encephalopathy G93.41 Pneumonia due to COVID-19 virus U07.1; J12.89 CKD (chronic kidney disease), stage III N18.3 Coronary artery disease I25.10 Associated angina: without angina Coronary Disease-Associated Artery/Lesion type: [place] artery [place] vs. transplanted heart: [place] heart Type 2 diabetes mellitus E11.22; N18.3 Chronic kidney disease stage: stage 3 (moderate) Diabetes mellitus complication detail: with chronic kidney disease Diabetes mellitus complication status: with kidney complications Diabetes mellitus correction insulin use: without correction use Hypertension I10 Hypertension type: essential hypertension Hypoalbuminemia due to protein-calorie malnutrition E88.09; E46 Pressure ulcer, heel L89.609 Splenic infarct D73.5 PUD (peptic ulcer disease) K27.[address] Z93.1 Phimosis N47.1 Goals of care, counseling/discussion Z71.89 DVT prophylaxis Z29.9 (1) Type 2 diabetes mellitus Chronic kidney disease stage: stage 3 (moderate) Diabetes mellitus complication detail: with chronic kidney disease Diabetes mellitus complication status: with kidney complications Diabetes mellitus correction insulin use: without correction use Qualified Code(s): E11.22 - Type 2 diabetes mellitus with diabetic chronic kidney disease; N18.3 - Chronic kidney disease, stage 3 (moderate) (2) Coronary artery disease Associated angina: without angina Coronary Disease-Associated Artery/Lesion type: [place] artery [place] vs. transplanted heart: [place] heart Qualified Code(s): I25.10 - Atherosclerotic heart disease of [place] coronary artery without angina pectoris (3) Hypertension Hypertension type: essential hypertension Qualified Code(s): I10 - Essential (primary) hypertension
[2020-02-11] MEDS ORDERED: VANCOMYCIN TROUGH ONE (11:30)
[2020-02-11] MEDS: VANCOMYCIN HCL 1,000 MG in SODIUM CHLORIDE 0.9% 250 ML IV SCH (12:02)
--- NOTE | 2020-02-11 12:58 | Pharmacy Report ---
Pharmacy Abx Dose Short Note - Date of Service February 11, 2020 - Assessment & Plan Assessment 89 year old M ordered empiric vancomycin and cefepime for coverage of sacral decubitus and pneumonia * today is day #5 of broad spectrum antibiotics * / BC reported no growth to date. coccyx culture reported moderate counts of mixed probable skin sam * patient was previously on zosyn -> changed to cefepime on 02/07 due to Scr trending upward in the setting of advanced age and CKD Plan Vancomycin * Trough level of 20.2 mcg/mL is slightly supratherapeutic - believe this can be attributed to previous dose being given an hour late and expect true trough to be < 20 mcg/mL. * Change to 1250 mg IV every 24 hours - At the time the level was resulted, 1000 mg dose of vancomycin had already been started so I will give an additional 2 50 mg of IV vancomycin immediately following the completion of that dose - given negative cultures and negative MRSA swab for colonization, do not want to be too aggressive with vancomycin dosing and have supratherapeutic levels continue and result in nephrotoxicity. Targeting a less stringent trough goal of somewhere near 15 mcg/mL for SST infxn. * Goal trough level for SST: 10 to 20 mcg/mL * Trough level ordered for the morning of 1/3 prior to steady state to ensure patient is not supratherapeutic on new dose. Cefepime * 2 g IV every 12 hours remains an appropriate dose per renal fxn and indication. Pharmacy will continue to follow and will adjust dose/frequency as necessary. Thank you.
[2020-02-11] MEDS ORDERED: VANCOMYCIN HCL 250 MG in 0.9 % SODIUM CHLORIDE 100 ML IV ONE (13:30)
[2020-02-11] MEDS ORDERED: PERIPHERAL PN IV SCH (16:00)
[2020-02-11] MEDS ORDERED: TPN IV SCH (16:00)
[2020-02-11] MEDS ORDERED: ACETAMINOPHEN 1000 MG/100 ML IV IV PRN (16:13)
[2020-02-11] MEDS: ENOXAPARIN 80 MG/0.8 ML SYR SQ SCH (16:52)
[2020-02-12] MEDS: INSULIN ASPART 100 UNITS/ML 3 ML PEN SC SCH ×6 (00:27→20:01)
[2020-02-12] MEDS: CEFEPIME 2,000 MG in SYRINGE 0 ML IV SCH ×2 (03:41→15:43)
[2020-02-12] MEDS: ENOXAPARIN 80 MG/0.8 ML SYR SQ SCH ×2 (06:08→17:40)
[2020-02-12 07:09] LABS: Basophils # (auto) 0.03 K/uL (0-0.2); Basophils % (auto) 0.3 %; Eosinophils # (auto) 0.41 K/uL (0-0.5); Eosinophils % (auto) 4.5 %; Hematocrit (blood only) 37.2 % (42-52); Hemoglobin 12.4 g/dL (14.0-18.0); Immature Granulocytes # (auto) 0.06 K/uL (0.00-0.02); Immature Granulocytes % (auto) 0.7 %; Lymphocytes # (auto) 0.75 K/uL (1.2-3.4); Lymphocytes % (auto) 8.2 %; Mean Corpuscular Hemoglobin 31.8 pg (25-34); Mean Corpuscular Hgb Conc 33.3 g/dL (32-36); Mean Corpuscular Volume 95.4 fL (80-100); Monocytes # (auto) 0.83 K/uL (0.11-0.59); Monocytes % (auto) 9.1 %; Neutrophils # (auto) 7.02 K/uL (1.4-6.5); Neutrophils % (auto) 77.2 %; Platelet Count 258 K/uL (130-400); RDW Coefficient of Variation 14.5 % (11.5-14.5); RDW Standard Deviation 50.3 fL (36.4-46.3)
[2020-02-12 07:44] LABS: Albumin Globulin Ratio 0.3 (0.9-2); Albumin Level 1.6 gm/dl (3.4-5.0); BUN Creatinine Ratio 22.8 (10-20); Bilirubin,Total 0.4 mg/dl (0.2-1); Calcium 8.2 mg/dl (8.5-10.1); Creatinine Clr Calc Pharmacy 47.4 ml/min; Est GFR (African American) 64.6; Est GFR (Non-African American) 55.7; Globulin 5.5 gm/dl (2.5-4.0); Potassium 3.9 mmol/L (3.5-5.1); Total Protein 7.1 gm/dl (6.4-8.2)
[2020-02-12] MEDS: carvediloL 6.25 MG TAB GT SCH ×2 (09:22→21:36)
[2020-02-12] MEDS: ATORVASTATIN 40 MG TAB GT SCH (09:23)
[2020-02-12] MEDS: PANTOprazole 40 MG in SYRINGE 0 ML IV SCH ×2 (09:23→21:35)
[2020-02-12] MEDS: CLOTRIMAZOLE/BETAMETHASONE CR 15 GM TUBE EXT SCH ×2 (09:24→21:36)
[2020-02-12] MEDS: POTASSIUM CHLORIDE / WTR 10 MEQ/100 ML PLCT IV ONE ×2 (09:24→10:22)
[2020-02-12] MEDS: THIAMINE HCL 100 MG in SYRINGE 9 ML IV SCH (09:25)
[2020-02-12] MEDS ORDERED: ASPIRIN 81 MG CHEW PO ONE (09:26)
[2020-02-12] MEDS ORDERED: ASPIRIN 81 MG CHEW ONE (09:26)
[2020-02-12] MEDS: INSULIN GLARGINE SOLOSTAR 100 UNITS/ML 3 ML PEN SC SCH ×2 (09:33→21:41)
[2020-02-12] MEDS ORDERED: ACETAMINOPHEN SUSP 325 MG/10.15 ML UDC ONE (09:38)
--- NOTE | 2020-02-12 09:57 | Surgery Progress Note ---
Date of Service February 12, 2020 Assessment & Plan (1) Gastrostomy tube in place: tube feeds begun lovenox restarted no surgical issues Admission and Anticipated Discharge Date Admission Date: January 12, 2020 Subjective g-tube being used without issue patient a little more disoriented this AM Review of Systems Constitutional: no fever and no chills Physical Exam Constitutional: no acute distress Neck: trachea midline Gastrointestinal (Abdomen): Inspection/Auscultation: abdomen normal to inspection; abdomen not distended Percussion/Palpation: + abdomen tender; no guarding and abdomen not rigid g=tube in place working well Results & Data ([facility]) Vital Signs (Past 12 Hours) Vital Signs Temp Pulse Resp BP Pulse Ox 02/12/20 04:06 37 C 107 H 18 148/63 H 91 02/11/20 23:01 37.3 C 89 19 137/57 L 92
[2020-02-12 10:21] LABS: Phosphorus 1.6 mg/dl (2.5-4.9)
[2020-02-12] MEDS: ASPIRIN 81 MG ECTAB PO SCH (10:21)
[2020-02-12] MEDS ORDERED: ACETAMINOPHEN SUSP 325 MG/10.15 ML UDC GT PRN (10:23)
[2020-02-12] MEDS ORDERED: POTASSIUM CHLORIDE 20 MEQ/15 ML UDC GT STA (10:23)
[2020-02-12] MEDS ORDERED: POTASSIUM PHOS 3 MMOL/1 ML INFUSION IV STA (11:20)
[2020-02-12] MEDS ORDERED: POTASSIUM PHOSPHATE 21 MMOL in SODIUM CHLORIDE 0.9% 500 ML IV ONE (12:00)
[2020-02-12] MEDS ORDERED: VANCOMYCIN HCL 1,250 MG in SODIUM CHLORIDE 0.9% 250 ML IV SCH (12:00)
[2020-02-12] MEDS ORDERED: INSULIN GLARGINE SOLOSTAR 100 UNITS/ML 3 ML PEN SC ONE (12:30)
[2020-02-12] MEDS ORDERED: MoRPHine SULFATE 2 MG/ML CARP IV PRN ×2 (15:03→20:21)
--- NOTE | 2020-02-12 15:06 | Hospitalist Progress Note ---
Date of Service February 12, 2020 Assessment & Plan (1) Atrial fibrillation: new diagnosis on 01/31 Afterwards, had sinus with PACs and some brief runs of afib for many days with rates in the 70s-80s without any rate control Went back into rapid atrial fibrillation with rates as high as the 180s on the morning of 02/06 in response to having rigors and a fever Improved rate control with starting IV Lopressor scheduled 5 mg every 6 hours -Continues to have normal sinus rhythm with PACs and some intermittent paroxysms of atrial fibrillation-rates are increasing today since converting to carvedilol via G-tube at low-dose Appreciate cardiology consultation He has a bifascicular block and amiodarone would not be a good option at this time -Continue therapeutic Lovenox (safe at least 24 hours after G-tube placement)- Will convert to Eliquis upon discharge-need to check to see if can be placed through G-tube -Increase carvedilol to 6.25 mg per G-tube twice daily and titrate up as needed on carvedilol for rate control if blood pressure can tolerate -Continue IV Lopressor as needed for heart rate greater than 120 (2) Sacral decubitus ulcer: Pressure ulcer of sacral region, unstageable, POA Nurse noted foul odor on 02/06 Wound culture taken-growing skin sam only -Follow blood cultures-NGTD May be the source of his fevers and rigors on 02/06 Continue wound care, offload pressure Not worsening at this time (3) Fever: With rigors and fever to 37.6 on the morning of 02/06 IV Tylenol given. Thought to be possibly from worsening sacral decubitus ulcer with foul-smelling wound culture with normal skin sam However, chest x-ray with bilateral infiltrates stable from previous, but could have superimposed bacterial pneumonia on top of previous Covid-19 pneumonia, healthcare associated pneumonia Continues with low-grade fevers on 02/10 and 02/11 but also just had G-tube placed Continue antibiotics for gram-negative pneumonia with cefepime and for MRSA pneumonia with vancomycin Antibiotics will also cover for infected sacral decubitus Procalcitonin significantly elevated at 6 and now down to 4 after treating with antibiotics MRSA swab nose negative, but continuing vancomycin as MRSA swab was collected 2 days after starting antibiotics Follow blood cultures-no growth to date -Continue Tylenol per G-tube as needed for fever -CBC -Continue cefepime and vancomycin -Continue incentive spirometry every hour if he can participate (4) Metabolic encephalopathy: Due to COVID 19, delirium had been improved significantly overall compared to previous throughout the whole last week of January However, developed delirium again on 02/11-he complained of abdominal pain which is likely secondary to surgical incision pain from G-tube -Improved slightly with treating pain with IV morphine and IV Ativan as needed for anxiety/agitation - Continue redirection, supportive care, and maintain Dennis catheter for urinary retention which previously caused agitation -Previously had no documented bowel movement for a 23 day period, then has had multiple bowel movements since then, last being on 02/08-constipation could be playing a role also -Add liquid Colace to tube feeds today (5) Acute respiratory failure with hypoxemia: sudden desaturation in afternoon on 01/31 with hypoxemia requiring 15L oxymask and BIPAP briefly CXR only showed persistent infiltrates BNP was not markedly elevated he was also in afib with RVR at the time most likely explanation was refeeding syndrome versus rapid atrial fibrillation moved to PCU since that time Had a recurrent exact episode on 02/06 of rapid atrial fibrillation and hypoxia as above. Was then weaned down to 3-4 L Chest x-ray with persistent bilateral airspace opacities not worse than previous Have been treating empirically for pneumonia with cefepime and vancomycin as above-continue antibiotics for now Respiratory status decompensating again on 02/12/2020 and now requiring 6 L oxygen mask with tachypnea-suspect volume overload as he has now been getting tube feeds plus overlapping PPN. Chest x-ray on 02/11 with worsening bilateral infiltrates -DC PPN -Give Lasix 40 mg IV x1 -Follow volume status and consider giving another dose of IV Lasix throughout the night or in the morning (6) Dysphagia: Has failed numerous swallowing evaluations throughout his month-long stay Had NG tube in place at times which were pulled out by the patient due to intolerance Treated for oral candidiasis with Diflucan and nystatin PEG tube placement attempted (after multiple delays for various reasons through out the week) on 02/08, but stomach too high under the ribs and was unable to be placed Consulted general surgery for G-tube placement-plan for 02/09-now placed and procedure went well keep strictly NPO as high aspiration risk Discontinue PPN now for volume overload as above -Continue IV thiamine but convert to giving through G-tube in near future -appreciate Dietary orders for tube feeds-tolerating without residuals Phosphorus is low today-replacing -Will keep tube feeds at 45 mL's per hour for now while replacing phosphorus Goal is 65 mL/h Follow CMP, magnesium, phosphorus, CBC (7) Gastrostomy tube in place: as above, placed on 02/09 Appreciate Surgery consult wound care as per Surgery With abdominal pain noted on 02/11 causing significant agitation-abdomen remained soft NG tube in place KUB on 02/11 with nonobstructive bowel pattern Chest x-ray on 02/11 showed free air under the diaphragm-reviewed with general surgery-expected postoperatively, but will follow closely (8) Refeeding syndrome: Suspected-occurred afternoon on 01/31 was on PPN, signs/symptoms included sudden dyspnea, hypoxia, atrial fibrillation gave Lasix 40mg IV, stopped PPN, moved to PCU He was completely stable for many days resumed PPN on 02/02 at lower rate of 60mL/hr and lower total volume daily of 1500mL and was tolerating well until had a recurrence of same symptoms on 02/06 which were more likely secondary to fever as above PEG tube placement attempted and failed as above G-tube now in place, started tube feeds on 02/10 and slowly increasing -Phosphorus low today at 1.6-replaced -follow CMP, phos, mag (9) Urinary retention: dennis pulled 02/02 since he was alert and communicating, getting OOB to chair he became agitated, swinging at nurses and staff on 02/02 and 02/03 straight cath for 600mL Replaced dennis catheter on 02/03 as he will likely continue to retain and will be a source of agitation can follow up with urology as outpatient, keep dennis on discharge -We will plan to add tamsulosin once G tube placed if blood pressure can tole rate Urology consulted now for phimosis as well (10) Pneumonia due to COVID-19 virus: Chest x-ray on admission had progressed significantly since his previous hospital stay a few days prior. Now back on oxygen as above for possible recurrent bacterial pneumonia He did not receive remdesivir due to renal insufficiency and he was 10+ days out from illness when he presented. repeat rapid COVID is NEGATIVE and he is off precautions Chest x-ray with persistent bilateral airspace opacities-treating empirically with cefepime and vancomycin as above and could have bacterial pneumonia Procalcitonin is elevated at 6 and then trended downward (11) CKD (chronic kidney disease), stage III: Baseline CrCL 30s/40s. - Cr is stable -Avoid nephrotoxins -renally dose meds when appropriate -follow BMP (12) Coronary artery disease: No evidence of ACS, has a history of stents placed in 2019. No chest pain -Now with G-tube in place-titrating up dose of Coreg -Continue ASA, and statin via G-tube (13) Type 2 diabetes mellitus: Pharmacy glycemic consult placed. Glucose fairly well controlled with some hyperglycemia as tube feeds have been started - Holding oral agents - Continue insulin as per pharmacy (14) Hypertension: BP elevated today, volume overloaded as above and with agitation contributing -Increase carvedilol, giving IV Lasix (15) Hypoalbuminemia due to protein-calorie malnutrition: Severe protein calorie malnutrition Albumin low at 1.6 Secondary to extremely poor nutrition throughout due to dysphagia Now status post placement of G-tube and starting tube feeds (16) Pressure ulcer, heel: Pressure ulcer R heel, stage 2, not POA Wound care, offload pressure (17) Splenic infarct: noted on CT abd/pel performed prior to G-tube Asymptomatic Prob 2/2 Afib and being off anticoagulation at times -Continue on Lovenox and eventually convert to Eliquis (18) PUD (peptic ulcer disease): noted on EGD to have multiple duodenal nonbleeding cratered ulcers and grade 3 esophagitis -continue PPI IV bid for now, and then convert to lansoprazole through the G- tube on 02/12 (19) Phimosis: Seen by Urology, was not able to be reduced Appreciate Urol consult-start betamethasone/clotrimazole twice daily to the penis Penis appears less edematous now -Follow-up with urology Maintain Dennis catheter (20) Hypophosphatemia: Phosphorus low at 1.6 Replace with potassium phosphorus today Follow phosphorus levels in the morning We will hold off on increasing tube feeds above 45 mL's per hour at this point (21) Goals of care, counseling/discussion: Multiple long discussions have been had with family regarding goals of care during this hospitalization they want him to get nutrition at this point, short term goal of improving nutrition to help improve strength Patient and family were agreeable to get tube placed for feeds Again stressed patient's very guarded condition with daughter, Katelyn, on the phone on 02/11. He has had numerous complications and struggled with multiple bouts of delirium, rapid atrial fibrillation, hypoxic respiratory failure, pressure wounds, severely poor nutrition, fevers and pneumonia. He is very brittle/frail and it is unclear if he will survive this hospitalization. (22) DVT prophylaxis: Lovenox 1mg/kg BID due to afib Disposition-continued stay on PCU, [facility]-referral will be made once medically stable Condition is quite guarded Remains full code Palliative care is following remotely Admission and Anticipated Discharge Date Admission Date: January 12, 2020 Subjective Patient has been agitated as per nursing staff all day. He is pulled out 2 of his IVs, but has not been pulling on his G-tube. He tells me that he has pain and points to his upper abdomen but otherwise is restless and saying things like "just get out of here." This is out of character for him when he is at baseline. His Dennis catheter is draining well. His tube feeds are up to 45 mL's per hour and the nurse reports no residuals. He has not had any vomiting. He was ordered IV morphine and IV Ativan as needed which seemed to help for a little while. Chest x-ray and KUB images were reviewed which did show some free air under the diaphragm. I discussed the case with general surgery who said that it is expected to have some air under the diaphragm after this procedure and to monitor for worsening abdominal pain. Telemetry with atrial fibrillation with rates in the 90s to the 120s at times His oxygenation also worsened and he was turned up to 6 L Later in the day, I discontinued his PPN and gave IV Lasix along with Tylenol for low-grade fever. I discussed his care with general surgery, the mend worker, and the patient's daughter on the phone at length. Review of Systems Review of Systems: All systems reviewed & are unremarkable except as noted in HPI & below Physical Exam Constitutional: + acute distress, + ill appearing, + thin, + frail appearing and + malnourished Eyes: + anicteric sclerae Neck: trachea midline, no thyromegaly Respiratory: + respiratory distress and + tachypneic Auscultation: + crackles (At lower lung pro bilaterally); no rhonchi and no wheezes Cardiovascular: Rate/Rhythm: + tachycardic (Mild) and + irregularly irregular Heart Sounds: no murmur Extremities: no edema Chest (Breasts): Chest: normal inspection of chest Gastrointestinal (Abdomen): normal bowel sounds, soft, nontender, no hepato splenomegaly Inspection/Auscultation: + abdomen abnormal to inspection (G- tube in place, dressing overlying this) Musculoskeletal: Extremities: extremities normal to inspection; no cyanosis and no clubbing Skin: no rashes, warm and dry + ecchymosis (Numerous all over arms) Neurologic: moves all extremities and awake; no focal motor deficits Psychiatric: Orientation: alert, oriented to person and cooperative Eye Contact: + fair eye contact Affect: + irritable affect Lymphatic: no lymphedema Results & Data Results & Data ([facility]) Vital Signs (Past 12 Hours) Vital Signs Temp Pulse Resp BP Pulse Ox 02/12/20 07:45 37.3 C 98 H 22 132/78 95 02/12/20 04:06 37 C 107 H 18 148/63 H 91 Laboratory Results 02/12/20 02/12/20 02/12/20 Range/Units 20:00 15:50 11:42 WBC (4.8-10.8) K/uL RBC (4.7-6.1) M/uL Hgb (14.0-18.0) g/dL Hct (42-52) % MCV (80-100) fL MCH (25-34) pg MCHC (32-36) g/dL RDW Std Deviation (36.4-46.3) fL RDW Coeff of Allie (11.5-14.5) % Plt Count (130-400) K/uL MPV (7.4-10.4) fL Immature Gran % (Auto) % Neut % (Auto) % Lymph % (Auto) % [place] % (Auto) % Eos % (Auto) % Baso % (Auto) % Neut # (Auto) (1.4-6.5) K/uL Lymph # (Auto) (1.2-3.4) K/uL [place] # (Auto) (0.11-0.59) K/uL Eos # (Auto) (0-0.5) K/uL Baso # (Auto) (0-0.2) K/uL Immature Gran # (Auto) (0.00-0.02) K/uL Sodium (136-145) mmol/L Potassium (3.5-5.1) mmol/L Chloride (98-107) mmol/L Carbon Dioxide (21-32) mmol/L Anion Gap (3-11) BUN (7-18) mg/dl Creatinine (0.6-1.4) mg/dl Est Cr Clr Drug Dosing ml/min Est GFR ( Amer) Est GFR (Non-Af Amer) BUN/Creatinine Ratio (10-20) Glucose (70-99) mg/dl POC Glucose 93 187 H 287 H (70-99) mg/dl Calcium (8.5-10.1) mg/dl Phosphorus (2.5-4.9) mg/dl Magnesium (1.8-2.4) mg/dl Total Bilirubin (0.2-1) mg/dl AST (15-37) U/L ALT (12-78) U/L Alkaline Phosphatase (45-117) U/L Total Protein (6.4-8.2) gm/dl Albumin (3.4-5.0) gm/dl Globulin (2.5-4.0) gm/dl Albumin/Globulin Ratio (0.9-2) Specimen Hemolysis 02/12/20 02/12/20 02/12/20 Range/Units 09:28 06:26 06:26 WBC 9.10 (4.8-10.8) K/uL RBC 3.90 L (4.7-6.1) M/uL Hgb 12.4 L (14.0-18.0) g/dL Hct 37.2 L (42-52) % MCV 95.4 (80-100) fL MCH 31.8 (25-34) pg MCHC 33.3 (32-36) g/dL RDW Std Deviation 50.3 H (36.4-46.3) fL RDW Coeff of Allie 14.5 (11.5-14.5) % Plt Count 258 (130-400) K/uL MPV 11.0 H (7.4-10.4) fL Immature Gran % (Auto) 0.7 % Neut % (Auto) 77.2 % Lymph % (Auto) 8.2 % [place] % (Auto) 9.1 % Eos % (Auto) 4.5 % Baso % (Auto) 0.3 % Neut # (Auto) 7.02 H (1.4-6.5) K/uL Lymph # (Auto) 0.75 L (1.2-3.4) K/uL [place] # (Auto) 0.83 H (0.11-0.59) K/uL Eos # (Auto) 0.41 (0-0.5) K/uL Baso # (Auto) 0.03 (0-0.2) K/uL Immature Gran # (Auto) 0.06 H (0.00-0.02) K/uL Sodium 141 (136-145) mmol/L Potassium 3.9 (3.5-5.1) mmol/L Chloride 113 H (98-107) mmol/L Carbon Dioxide 24 (21-32) mmol/L Anion Gap 4.0 (3-11) BUN 27 H (7-18) mg/dl Creatinine 1.17 (0.6-1.4) mg/dl Est Cr Clr Drug Dosing 47.4 ml/min Est GFR ( Amer) 64.6 Est GFR (Non-Af Amer) 55.7 BUN/Creatinine Ratio 22.8 H (10-20) Glucose 221 H (70-99) mg/dl POC Glucose 218 H (70-99) mg/dl Calcium 8.2 L (8.5-10.1) mg/dl Phosphorus 1.6 L D (2.5-4.9) mg/dl Magnesium 2.0 (1.8-2.4) mg/dl Total Bilirubin 0.4 (0.2-1) mg/dl AST 24 (15-37) U/L ALT 15 (12-78) U/L Alkaline Phosphatase 77 (45-117) U/L Total Protein 7.1 (6.4-8.2) gm/dl Albumin 1.6 L (3.4-5.0) gm/dl Globulin 5.5 H (2.5-4.0) gm/dl Albumin/Globulin Ratio 0.3 L (0.9-2) Specimen Hemolysis 02/12/20 02/12/20 02/11/20 Range/Units 05:30 00:21 20:36 WBC (4.8-10.8) K/uL RBC (4.7-6.1) M/uL Hgb (14.0-18.0) g/dL Hct (42-52) % MCV (80-100) fL MCH (25-34) pg MCHC (32-36) g/dL RDW Std Deviation (36.4-46.3) fL RDW Coeff of Allie (11.5-14.5) % Plt Count (130-400) K/uL MPV (7.4-10.4) fL Immature Gran % (Auto) % Neut % (Auto) % Lymph % (Auto) % [place] % (Auto) % Eos % (Auto) % Baso % (Auto) % Neut # (Auto) (1.4-6.5) K/uL Lymph # (Auto) (1.2-3.4) K/uL [place] # (Auto) (0.11-0.59) K/uL Eos # (Auto) (0-0.5) K/uL Baso # (Auto) (0-0.2) K/uL Immature Gran # (Auto) (0.00-0.02) K/uL Sodium (136-145) mmol/L Potassium (3.5-5.1) mmol/L Chloride (98-107) mmol/L Carbon Dioxide (21-32) mmol/L Anion Gap (3-11) BUN (7-18) mg/dl Creatinine (0.6-1.4) mg/dl Est Cr Clr Drug Dosing ml/min Est GFR ( Amer) Est GFR (Non-Af Amer) BUN/Creatinine Ratio (10-20) Glucose (70-99) mg/dl POC Glucose 219 H 199 H 209 H (70-99) mg/dl Calcium (8.5-10.1) mg/dl Phosphorus (2.5-4.9) mg/dl Magnesium (1.8-2.4) mg/dl Total Bilirubin (0.2-1) mg/dl AST (15-37) U/L ALT (12-78) U/L Alkaline Phosphatase (45-117) U/L Total Protein (6.4-8.2) gm/dl Albumin (3.4-5.0) gm/dl Globulin (2.5-4.0) gm/dl Albumin/Globulin Ratio (0.9-2) Specimen Hemolysis PG Care Time/CCT Total # of Minutes Spent Total Time Spent with Patient: Total time spent is greater than 50% in coordination of care (as documented) at patient's floor/unit and/or counseling p atient: Coding Level of Care Code 23413 Subseq Hosp Care Lvl 3 Diagnoses Atrial fibrillation I48.91 Sacral decubitus ulcer L89.159 Fever R50.9 Metabolic encephalopathy G93.41 Acute respiratory failure with hypoxemia J96.01 Dysphagia R13.[address] Z93.1 Refeeding syndrome E87.8 Urinary retention R33.9 Pneumonia due to COVID-19 virus U07.1; J12.89 CKD (chronic kidney disease), stage III N18.3 Coronary artery disease I25.10 Associated angina: without angina Coronary Disease-Associated Artery/Lesion type: torres martinez artery [place] vs. transplanted heart: torres martinez heart Type 2 diabetes mellitus E11.22; N18.3 Chronic kidney disease stage: stage 3 (moderate) Diabetes mellitus complication detail: with chronic kidney disease Diabetes mellitus complication status: with kidney complications Diabetes mellitus computer terminal operator insulin use: without computer terminal operator use Hypertension I10 Hypertension type: essential hypertension Hypoalbuminemia due to protein-calorie malnutrition E88.09; E46 Pressure ulcer, heel L89.609 Splenic infarct D73.5 PUD (peptic ulcer disease) K27.9 Phimosis N47.1 Hypophosphatemia E83.39 Goals of care, counseling/discussion Z71.89 DVT prophylaxis Z29.9 (1) Type 2 diabetes mellitus Chronic kidney disease stage: stage 3 (moderate) Diabetes mellitus complication detail: with chronic kidney disease Diabetes mellitus complication status: with kidney complications Diabetes mellitus computer terminal operator insulin use: without correction use Qualified Code(s): E11.22 - Type 2 diabetes mellitus with diabetic chronic kidney disease; N18.3 - Chronic kidney disease, stage 3 (moderate) (2) Coronary artery disease Associated angina: without angina Coronary Disease-Associated Artery/Lesion type: torres martinez artery [place] vs. transplanted heart: torres martinez heart Qualified Code(s): I25.10 - Atherosclerotic heart disease of torres martinez coronary artery withou t angina pectoris (3) Hypertension Hypertension type: essential hypertension Qualified Code(s): I10 - Essential (primary) hypertension
[2020-02-12] MEDS ORDERED: LORazepam 0.5 MG/1 ML VIAL IV PRN (15:08)
--- NOTE | 2020-02-12 15:46 | XRay Report ---
KUB CLINICAL HISTORY: Generalized abdominal pain. Gastrostomy tube placement. FINDINGS: An AP, portable, supine abdominal radiograph is compared to study dated 02/05/2020 and fred elated with abdominal CT dated 02/09/2020. There is a nonobstructed abdominal bowel gas pattern. A ga strostomy tube is partially visualized projecting over the left upper quadrant. No evidence of intrap eritoneal free air is seen on this supine image. There are no abnormal abdominal calcifications. The skeletal structures are osteopenic and appear intact. There is lumbosacral spondylosis. IMPRESSION: 1. Nonobstructed bowel gas pattern. 2. A gastrostomy tube is partially visualized projecting over the left upper quadrant. Electronically signed by: Nawaf Chanel M.D. 02/12/2020 3:45 PM
--- NOTE | 2020-02-12 15:48 | XRay Report ---
SINGLE VIEW CHEST CLINICAL HISTORY: Upper abdominal pain. Gastrostomy tube placement. FINDINGS: An AP, portable, upright chest radiograph is compared to study dated 02/08/2020. The heart is mildly enlarged noting atherosclerotic calcification of the thoracic aorta. Multifocal airspace co nsolidation is seen throughout both lungs. This has increased from 02/08/2020. Small pleural effusion s are suspected. No pneumothorax is seen. The skeletal structures are osteopenic. The bony thorax is grossly intact. Intraperitoneal free air seen below the diaphragm. IMPRESSION: 1. Multifocal airspace consolidation has increased as compared to 02/08/2020. 2. Intraperitoneal free air is seen below the diaphragm. This is nonspecific and may be related to re cent gastrostomy tube placement. Clinical correlation will be essential. ACT 112: Negative or not required by law. Electronically signed by: Nawaf Chanel M.D. 02/12/2020 3:47 PM
[2020-02-12] MEDS ORDERED: PERIPHERAL PN IV SCH (16:00)
[2020-02-12] MEDS ORDERED: TPN IV SCH (16:00)
[2020-02-12] MEDS: METOPROLOL TARTRATE 1 MG/ML VIAL IV PRN ×2 (17:47→22:15)
[2020-02-12] MEDS ORDERED: FUROSEMIDE 40 MG in SYRINGE 0 ML IV ONE ×2 (18:30→22:15)
[2020-02-12] MEDS ORDERED: ACETAMINOPHEN SUSP 1000 MG/31.2 ML UDP PO PRN (20:18)
[2020-02-12] MEDS ORDERED: ACETAMINOPHEN SUSP 1000 MG/31.2 ML UDP GT ONE (20:45)
[2020-02-12] MEDS ORDERED: ACETAMINOPHEN SUSP 500 MG/15.6 ML UDP GT ONE (20:45)
[2020-02-12] MEDS: DOCUSATE SODIUM SYRUP 100 MG/10 ML UDC GT SCH (21:36)
--- NOTE | 2020-02-12 23:04 | XRay Report ---
SINGLE VIEW CHEST CLINICAL HISTORY: Dyspnea. FINDINGS: 2 AP, portable, upright chest radiographs are compared to study performed earlier the same day 02/12/2020. The heart is mildly enlarged noting atherosclerotic calcification of the thoracic aorta . Multifocal airspace consolidation is unchanged from earlier today. Small pleural effusions are susp ected. No pneumothorax is seen. The skeletal structures are osteopenic. The bony thorax is grossly in tact. Intraperitoneal free air seen below the diaphragm. IMPRESSION: 1. Multifocal airspace consolidation has not significantly changed from earlier today. 2. Intraperitoneal free air is again seen below the diaphragm. This is nonspecific and may be related to recent gastrostomy tube placement. Clinical correlation will be required. ACT 112: Negative or not required by law. Electronically signed by: Nawaf Chanel M.D. 02/12/2020 11:03 PM
[2020-02-13] MEDS: INSULIN ASPART 100 UNITS/ML 3 ML PEN SC SCH ×3 (00:44→09:25)
[2020-02-13] MEDS: CEFEPIME 2,000 MG in SYRINGE 0 ML IV SCH (04:20)
[2020-02-13] MEDS: ENOXAPARIN 80 MG/0.8 ML SYR SQ SCH (05:15)
--- NOTE | 2020-02-13 06:51 | Communication Note ---
Date of Service: February 13, 2020 Initially was called to the patient's room approximately 1030 yesterday evening for worsening shortness of breath, on physical exam there were bilateral crackles, obtain a chest x-ray which did not demonstrate significant change from earlier in the day. I spoke with the nurse and learned that the patient's medication was given slightly delayed which could have accounted for his symptoms, approximately 1 hour later he was doing better on BiPAP. Was updated about the patient's condition approximately 630 this morning, patient experienced an episode of emesis provided as needed Zofran. Patient's tube feeding was also paused overnight. Patient is not experiencing symptoms of aspiration, consider chest x-ray. Patient has been on BiPAP all evening Resident Activity Tracking Resident Involvement: Resident Care Provided Care Provided: Adult Hospital Medicine
[2020-02-13 07:23] LABS: Basophils # (auto) 0.05 K/uL (0-0.2); Basophils % (auto) 0.3 %; Eosinophils # (auto) 0.05 K/uL (0-0.5); Eosinophils % (auto) 0.3 %; Hematocrit (blood only) 39.1 % (42-52); Hemoglobin 12.7 g/dL (14.0-18.0); Immature Granulocytes # (auto) 0.17 K/uL (0.00-0.02); Immature Granulocytes % (auto) 0.9 %; Lymphocytes # (auto) 2.27 K/uL (1.2-3.4); Lymphocytes % (auto) 12.4 %; Mean Corpuscular Hemoglobin 31.3 pg (25-34); Mean Corpuscular Hgb Conc 32.5 g/dL (32-36); Mean Corpuscular Volume 96.3 fL (80-100); Mean Platelet Volume 10.8 fL (7.4-10.4); Monocytes # (auto) 1.69 K/uL (0.11-0.59); Monocytes % (auto) 9.3 %; Neutrophils # (auto) 14.03 K/uL (1.4-6.5); Neutrophils % (auto) 76.8 %; Platelet Count 351 K/uL (130-400); RDW Coefficient of Variation 14.6 % (11.5-14.5); RDW Standard Deviation 51.5 fL (36.4-46.3); Red Blood Count 4.06 M/uL (4.7-6.1); White Blood Count 18.26 K/uL (4.8-10.8)
[2020-02-13 07:49] VITALS: TEMP 98.2
[2020-02-13 07:52] LABS: BUN Creatinine Ratio 20.8 (10-20); Creatinine Clr Calc Pharmacy 28.6 ml/min; Est GFR (Non-African American) 30.2; Magnesium 2.3 mg/dl (1.8-2.4); Potassium 4.3 mmol/L (3.5-5.1)
--- NOTE | 2020-02-13 08:47 | XRay Report ---
XR chest 1V portable HISTORY: hypoxia, possible aspiration COMPARISON: Chest 02/12/2020. FINDINGS: Slight improvement in the multifocal airspace opacities within the right lung. The left bonnie g airspace opacities are not significantly changed. No pneumothorax. Pneumoperitoneum is again noted. Moderate gaseous distention of the stomach which has progressed. IMPRESSION: 1. Slight improved aeration within the right lung. Multifocal airspace opacities within the left lung persists. 2. Redemonstration of the pneumoperitoneum. 3. Moderate gaseous distention of the stomach which has progressed. ACT 112: Negative or not required by law. Electronically signed by: Jhony Arroyo M.D. 02/13/2020 8:46 AM
--- NOTE | 2020-02-13 08:48 | Hospitalist Progress Note ---
Date of Service February 13, 2020 Assessment & Plan (1) Goals of care, counseling/discussion: initial discussion with daughter Katelyn at 830am this morning, talked for 15 minutes about clinical deterioration over night, aspirating, respiratory failure entire family came to talk at 1045 and they were able to visit one at a time to see patient and talk with him afterwards we had a very deanna discussion that the patient is dying, he cannot protect his airway, he lacks the strength to cough up secretions BIPAP can sustain his oxygen saturations but it just pushes more secretions down into his lungs, further compromising breathing he cannot get further tube feeds at this time being on BIPAP and with vomiting last night he has atrial fibrillation, acute kidney injury, delirium, sacral ulcer and is malnourished, deconditioned family immediately agreed that we should not escalate care further his stated that she just wants him to be comfortable and other family members agreed with her placed order for comfort measures only, stop all medications will have RN remove BIPAP, place him on nasal canula Morphine 2mg IV q1 PRN, if not sufficient then place on drip Atropine drops for secretions Ativan IV for any agitation family can visit at the bedside for end of life visits (2) Acute respiratory failure with hypoxemia: sudden desaturation in afternoon on 01/31 with hypoxemia requiring 15L oxymask and BIPAP briefly CXR only showed persistent infiltrates BNP was not markedly elevated he was also in afib with RVR at the time most likely explanation was refeeding syndrome versus rapid atrial fibrillation moved to PCU since that time Had a recurrent exact episode on 02/06 of rapid atrial fibrillation and hypoxia as above. 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, immediate respiratory distress clearly has difficulty handling secretions, rattling in throat, very weak cough required BIPAP to maintain saturations but this is not a solution to issue transition to comfort care (4) Acute kidney injury: Cr up to 1.9 from 1.1 likely from two doses of Lasix yesterday volume contracted no fluids as will make him comfort care (5) Atrial fibrillation: new diagnosis on 01/31 Afterwards, had sinus with PACs and some brief runs of afib for many days with rates in the 70s-80s without any rate control Appreciate cardiology consultation He has a bifascicular block and amiodarone would not be a good option at this time was treated with Coreg via PEG and Lopressor IV PRN Lovenox for full anticoagulation stopped now for comfort care (6) Sacral decubitus ulcer: Pressure ulcer of sacral region, unstageable, POA Nurse noted foul odor on 02/06 Wound culture taken-growing skin sam only -Follow blood cultures-NGTD Continue wound care, offload pressure now on comfort care (7) Fever: With rigors and fever to 37.6 on the morning of 02/06 IV Tylenol given. Thought to be possibly from worsening sacral decubitus ulcer with foul-smelling wound culture with normal skin sam However, chest x-ray with bilateral infiltrates stable from previous, but could have superimposed bacterial pneumonia on top of previous Covid-19 pneumonia, healthcare associated pneumonia Continues with low-grade fevers on 02/10 and 02/11 but also just had G-tube placed no fever today, stop antibiotics with comfort care goal (8) Metabolic encephalopathy: Due to COVID 19, delirium had been improved significantly overall compared to previous throughout the whole last week of January mental status is touch and go today, he recognizes family and responds appropriately, overall he is very fatigued and lethargic (9) Dysphagia: Has failed numerous swallowing evaluations throughout his month-long stay Had NG tube in place at times which were pulled out by the patient due to intolerance Treated for oral candidiasis with Diflucan and nystatin PEG tube placement attempted (after multiple delays for various reasons throughout the week) on 02/08, but stomach too high under the ribs and was unable to be placed Consulted general surgery for G-tube placement-plan for 02/09-now placed and procedure went well keep strictly NPO as high aspiration risk started on tube feeds with vitamin replacement however, he vomited and aspirated in forge shop supervisor 1/3 tube feeds stopped, comfort care (10) Gastrostomy tube in place: as above, placed on 02/09 Appreciate Surgery consult wound care as per Surgery With abdominal pain noted on 02/11 causing significant agitation-abdomen remained soft NG tube in place KUB on 02/11 with nonobstructive bowel pattern Chest x-ray on 02/11 showed free air under the diaphragm-reviewed with general surgery-expected postoperatively (11) Urinary retention: dennis pulled 02/02 since he was alert and communicating, getting OOB to chair he became agitated, swinging at nurses and staff on 02/02 and 02/03 straight cath for 600mL Replaced dennis catheter on 02/03 as he will likely continue to retain and will be a source of agitation can follow up with urology as outpatient, keep dennis on discharge -We will plan to add tamsulosin once G tube placed if blood pressure can tolerate Urology consulted now for phimosis as well (12) Pneumonia due to COVID-19 virus: Chest x-ray on admission had progressed significantly since his previous hospital stay a few days prior. Now back on oxygen as above for possible recurrent bacterial pneumonia He did not receive remdesivir due to renal insufficiency and he was 10+ days out from illness when he presented. repeat rapid COVID is NEGATIVE and he is off precautions Chest x-ray with persistent bilateral airspace opacities-treating empirically with cefepime and vancomycin as above and could have bacterial pneumonia (13) CKD (chronic kidney disease), stage III: Baseline CrCL 30s/40s. - Cr up to 1.9 today after Lasix yesterday (14) Coronary artery disease: No evidence of ACS, has a history of stents placed in 2019. No chest pain (15) Type 2 diabetes mellitus: Pharmacy glycemic consult placed. Glucose fairly well controlled (16) Hypoalbuminemia due to protein-calorie malnutrition: Severe protein calorie malnutrition Albumin low at 1.6 Secondary to extremely poor nutrition throughout due to dysphagia Now status post placement of G-tube and starting tube feeds now comfort care (17) Pressure ulcer, heel: Pressure ulcer R heel, stage 2, not POA Wound care, offload pressure (18) PUD (peptic ulcer disease): noted on EGD to have multiple duodenal nonbleeding cratered ulcers and grade 3 esophagitis treated with Protonix IV now comfort (19) Phimosis: Seen by Urology, was not able to be reduced Appreciate Urol consult-start betamethasone/clotrimazole twice daily to the penis Penis appears less edematous now (20) Hypophosphatemia: Phosphorus low at 1.6 Replace with potassium phosphorus (21) DVT prophylaxis: Lovenox 1mg/kg BID due to afib Disposition- comfort care Admission and Anticipated Discharge Date Admission Date: January 12, 2020 Subjective patient not doing well this morning, he vomited last night and likely aspirated struggling to breathe on 15L oxymask, belly breathing, using accessory muscles, had to place him on BIPAP WBC up to 18k, Cr up to 1.9 from 1.0 yesterday, he did received Lasix 40mg IV once yesterday and then last night he is pulling out IV sites, pulling off tele monitor, pulled off tubing of BIPAP I asked patient if he was in pain, he nodded his head "yes" but could not say where he had told his RN that he felt like he was dying, said he was okay with this I called his daughter and spoke over the phone about his guarded prognosis, I am concerned about him getting worse, needing intubated discussed that this is going in the opposite direction of goals of care which is to get him stronger and get him back home Katelyn will call her mother and bring her in to see the patient at the bedside to discuss goals of care entire family came in for a meeting at 1045 met with them in the lobby, discussed goals of care, poor prognosis, aspirating, cannot protect airway and cannot maintain oxygen without BIPAP each family member came to see him at the bedside at this time we took off BIPAP and I was able to observe patient breathing on oxymask RR in the high 30's, belly breathing, secretions rattling in the back of the throat it was clear that he would not be able to maintain his saturations without BIPAP and he was suffering afterwards we talked again as a group I explained that I felt the patient was dying, has no strength to cough up secretions, cannot protect airway, cannot live without BIPAP his immediately said that he needs to be comfortable, he has suffered so much the past month other family members in agreement with comfort, no escalation of care changed patient to DNR/DNI and comfort measures ordered Review of Systems Review of Systems: All systems reviewed & are unremarkable except as noted in Subjective Constitutional: + fatigue and + weakness; no fever Respiratory: + chest congestion, + dyspnea and + dyspnea on exertion; no cough Cardiovascular: no chest pain Gastrointestinal: + abdominal pain, + nausea and + vomiting; no constipation and no diarrhea/loose stools Physical Exam Constitutional: well developed, + acute distress, + thin, + frail appearing and + underweight ENMT: external ear and nose normal, oropharynx normal (thrush resolved) Mouth: + dry oral mucous membranes Neck: trachea midline, no thyromegaly Respiratory: + respiratory distress, + labored breathing and + uses accessory muscles; no cough Auscultation: + rhonchi secretions rattling in the back of the throat Cardiovascular: Rate/Rhythm: + tachycardic and + irregularly irregular Heart Sounds: normal S1 and normal S2; no murmur Extremities: normal capillary refill; no edema Gastrointestinal (Abdomen): normal bowel sounds, soft, nontender, no hepatosplenomegaly Musculoskeletal: Head/Neck/Chest: normocephalic, head atraumatic and neck supple Extremities: extremities normal to inspection and + abnormal strength (generalized weakness) Skin: no rashes, warm and dry Neurologic: CN's II-XI intact bilaterally, moves all extremities and awake; no focal motor deficits Psychiatric: Orientation: alert, oriented to person, oriented to place and + guarded; + not oriented to time Results & Data Results & Data ([facility]) Vital Signs (Past 12 Hours) Vital Signs Temp Pulse Pulse Resp BP Pulse Ox 02/13/20 07:49 36.8 C 104 H 18 109/72 96 02/13/20 03:45 103 H 38 H 95 02/13/20 03:05 36.6 C 100 H 16 112/77 95 02/13/20 02:31 37.4 C 02/12/20 23:29 38.1 C H 115 H 24 120/62 93 02/12/20 22:06 83 39 H 92 02/12/20 21:56 87 32 H 88 L Laboratory Results Laboratory Results - last 24 hr 02/12/20 02/12/20 02/12/20 06:26 09:28 11:42 WBC RBC Hgb Hct MCV MCH MCHC RDW Std Deviation RDW Coeff of Allie Plt Count MPV Immature Gran % (Auto) Neut % (Auto) Lymph % (Auto) [place] % (Auto) Eos % (Auto) Baso % (Auto) Neut # (Auto) Lymph # (Auto) [place] # (Auto) Eos # (Auto) Baso # (Auto) Immature Gran # (Auto) Sodium Potassium Chloride Carbon Dioxide Anion Gap BUN Creatinine Est Cr Clr Drug Dosing Est GFR ( Amer) Est GFR (Non-Af Amer) BUN/Creatinine Ratio Glucose POC Glucose 218 H 287 H Calcium Phosphorus 1.6 L D Magnesium Procalcitonin 02/12/20 02/12/20 02/13/20 15:50 20:00 00:26 WBC RBC Hgb Hct MCV MCH MCHC RDW Std Deviation RDW Coeff of Allie Plt Count MPV Immature Gran % (Auto) Neut % (Auto) Lymph % (Auto) [place] % (Auto) Eos % (Auto) Baso % (Auto) Neut # (Auto) Lymph # (Auto) [place] # (Auto) Eos # (Auto) Baso # (Auto) Immature Gran # (Auto) Sodium Potassium Chloride Carbon Dioxide Anion Gap BUN Creatinine Est Cr Clr Drug Dosing Est GFR ( Amer) Est GFR (Non-Af Amer) BUN/Creatinine Ratio Glucose POC Glucose 187 H 93 199 H Calcium Phosphorus Magnesium Procalcitonin 02/13/20 02/13/20 02/13/20 04:19 07:08 07:08 WBC 18.26 H RBC 4.06 L Hgb 12.7 L Hct 39.1 L MCV 96.3 MCH 31.3 MCHC 32.5 RDW Std Deviation 51.5 H RDW Coeff of Allie 14.6 H Plt Count 351 MPV 10.8 H Immature Gran % (Auto) 0.9 Neut % (Auto) 76.8 Lymph % (Auto) 12.4 [place] % (Auto) 9.3 Eos % (Auto) 0.3 Baso % (Auto) 0.3 Neut # (Auto) 14.03 H Lymph # (Auto) 2.27 [place] # (Auto) 1.69 H Eos # (Auto) 0.05 Baso # (Auto) 0.05 Immature Gran # (Auto) 0.17 H Sodium 143 Potassium 4.3 Chloride 112 H Carbon Dioxide 23 Anion Gap 8.0 BUN 40 H Creatinine 1.94 H D Est Cr Clr Drug Dosing 28.6 Est GFR ( Amer) 35.0 Est GFR (Non-Af Amer) 30.2 BUN/Creatinine Ratio 20.8 H Glucose 216 H POC Glucose 260 H Calcium 9.0 Phosphorus 3.0 D Magnesium 2.3 Procalcitonin 02/13/20 02/13/20 07:08 07:27 WBC RBC Hgb Hct MCV MCH MCHC RDW Std Deviation RDW Coeff of Allie Plt Count MPV Immature Gran % (Auto) Neut % (Auto) Lymph % (Auto) [place] % (Auto) Eos % (Auto) Baso % (Auto) Neut # (Auto) Lymph # (Auto) [place] # (Auto) Eos # (Auto) Baso # (Auto) Immature Gran # (Auto) Sodium Potassium Chloride Carbon Dioxide Anion Gap BUN Creatinine Est Cr Clr Drug Dosing Est GFR ( Amer) Est GFR (Non-Af Amer) BUN/Creatinine Ratio Glucose POC Glucose 196 H Calcium Phosphorus Magnesium Procalcitonin 3.17 H Diagnostic Findings XR chest 1V portable HISTORY: hypoxia, possible aspiration COMPARISON: Chest 02/12/2020. FINDINGS: Slight improvement in the multifocal airspace opacities within the right lung. The left lung airspace opacities are not significantly changed. No pneumothorax. Pneumoperitoneum is again noted. Moderate gaseous distention of the stomach which has progressed. IMPRESSION: 1. Slight improved aeration within the right lung. Multifocal airspace opacities within the left lung persists. 2. Redemonstration of the pneumoperitoneum. 3. Moderate gaseous distention of the stomach which has progressed. Medications Administered Current Inpatient Medications Acetaminophen (Acetaminophen Susp 1000 Mg/31.2 Ml Udp) 1,000 mg PO Q6H PRN PRN Reason: Pain or Fever Stop: 03/13/20 20:17 Last Admin: 02/12/20 21:37 Dose: 1,000 mg Documented by: Hydrocodone Bitart/Acetaminophen (Hydrocodone/Apap 2.5mg/108mg Elix 5 Ml Udp) 5 ml GT Q4H PRN PRN Reason: Pain (1-5) Stop: 02/24/20 13:28 Hydrocodone Bitart/Acetaminophen (Hydrocodone/Apap 2.5mg/108mg Elix 5 Ml Udp) 10 ml GT Q4H PRN PRN Reason: Pain (6-10) Stop: 02/24/20 13:28 Albuterol (Albuterol Hfa 8 Gm Inhaler) 2 puffs INH Q6H PRN PRN Reason: Cough Stop: 02/14/20 08:54 Last Admin: 02/12/20 21:56 Dose: 2 puffs Documented by: Aspirin (Aspirin 81 Mg Chew) 81 mg GT DAILY [facility] Stop: 03/14/20 08:59 Atorvastatin Calcium (Atorvastatin 40 Mg Tab) 80 mg GT QAM [facility] Stop: 03/12/20 09:44 Last Admin: 02/12/20 09:23 Dose: 80 mg Documented by: Betamethasone/Clotrimazole (Clotrimazole/Betamethasone Cr 15 Gm Tube) 1 appln EXT BID [facility] Stop: 03/11/20 20:59 Last Admin: 02/12/20 21:36 Dose: 1 appln Documented by: Carvedilol (Carvedilol 6.25 Mg Tab) 6.25 mg GT BID [facility] Stop: 03/13/20 08:59 Last Admin: 02/12/20 21:36 Dose: 6.25 mg Documented by: Chlorhexidine Gluconate (Chlorhexidine Gluconate 0.12% 480 Ml) 15 ml MT BID [facility] Stop: 03/14/20 08:59 Dextrose (Dextrose 50% 50 Ml Syringe) 25 - 50 ml IV UD PRN; Protocol PRN Reason: Hypoglycemia Protocol Stop: 02/13/20 11:44 Docusate Sodium (Docusate Sodium Syrup 100 Mg/10 Ml Udc) 100 mg GT BID [facility] Stop: 03/13/20 20:59 Last Admin: 02/12/20 21:36 Dose: 100 mg Documented by: Enoxaparin Sodium (Enoxaparin 80 Mg/0.8 Ml Syr) 80 mg SQ Q12H [facility] Stop: 03/12/20 17:59 Last Admin: 02/13/20 05:15 Dose: 80 mg Documented by: Enteral Nutritional Formula (Fibersource Hn 1.2 Srinivasan 1000 Ml Bag) 1,000 ml GT UD DERICK; Protocol Stop: 03/12/20 07:59 Last Admin: 02/11/20 11:33 Dose: 1,000 ml Documented by: Glucagon (Glucagon For Inj 1 Mg Vial) 1 mg IM UD PRN; Protocol PRN Reason: Hypoglycemia Protocol Stop: 02/13/20 11:44 Glucose (Glucose 40% Gel 15 Gm Tube) 15 - 30 gm PO UD PRN; Protocol PRN Reason: Hypoglycemia Protocol Stop: 02/13/20 11:44 Last Admin: 01/19/20 08:54 Dose: 15 gm Documented by: Glucose (Glucose 10 Tabs/Tube) 4 - 8 tabs PO UD PRN; Protocol PRN Reason: Hypoglycemia Protocol Stop: 02/13/20 11:44 Thiamine HCl 100 mg/ Syringe 10 mls @ 2 mls/min IV QAM [facility] Stop: 03/04/20 11:29 Last Admin: 02/12/20 09:25 Dose: 2 mls/min Documented by: Cefepime HCl 2,000 mg/ Syringe 20 mls @ 5 mls/min IV Q12H [facility]; Protocol Stop: 02/14/20 15:59 Last Admin: 02/13/20 04:20 Dose: 5 mls/min Documented by: Pantoprazole Sodium 40 mg/ (Syringe) 10 mls @ 5 mls/min IV BID [facility] Stop: 03/10/20 20:59 Last Admin: 02/12/20 21:35 Dose: 5 mls/min Documented by: Vancomycin HCl 1,250 mg/ (Sodium Chloride) 275 mls @ 200 mls/hr IV Q24H [facility] Stop: 02/19/20 11:59 Last Infusion: 02/12/20 14:36 Dose: Infused Documented by: Lorazepam (Ativan) 0.5 mg in 1 mls @ 0.5 mls/min IV Q6 PRN PRN Reason: agitation Stop: 03/13/20 15:07 Last Admin: 02/12/20 16:10 Dose: 0.5 mls/min Documented by: Insulin Aspart (Insulin Aspart 100 Units/Ml 3 Ml Pen) 0 units SC Q4 [facility]; Protocol Stop: 03/13/20 12:29 Last Admin: 02/13/20 04:28 Dose: 13 units Documented by: Insulin Glargine (Insulin Glargine Solostar 100 Units/Ml 3 Ml Pen) 0 units SC BID [facility]; Protocol Stop: 03/04/20 20:59 Last Admin: 02/12/20 21:41 Dose: 5 units Documented by: Metoprolol Tartrate (Metoprolol Tartrate 1 Mg/Ml Vial) 5 mg IV Q6 PRN PRN Reason: HR>120 Stop: 03/08/20 17:59 Last Admin: 02/12/20 22:15 Dose: 5 mg Documented by: Miscellaneous (Carbohydrates For Hypoglycemia ) 15 - 30 gm PO UD PRN PRN Reason: Hypoglycemia Treatment Stop: 02/13/20 11:44 Last Admin: 01/19/20 08:45 Dose: 15 gm Documented by: Miscellaneous Information (Pharmacy Glycemic Mgmt Consult) 1 ea N/A UD PRN PRN Reason: Consult Stop: 03/13/20 19:57 Miscellaneous Information (Vancomycin Consult Active) 1 ea N/A UD PRN PRN Reason: Consult Stop: 03/08/20 09:19 Morphine Sulfate (Morphine Sulfate 2 Mg/Ml Carp) 1 mg IV Q2H PRN PRN Reason: Pain Stop: 02/26/20 15:02 Multivitamins/Minerals (Multi Vit W/Minerals Liquid 15 Ml Udp) 15 ml GT QAM DERICK Stop: 03/14/20 08:59 Ondansetron HCl (Ondansetron Inj 2 Mg/Ml 2 Ml Vial) 4 mg IV Q6H [facility] Stop: 03/14/20 07:59 PG Care Time/CCT Total # of Minutes Spent Total Time Spent: 90 Total Time Spent with Patient: Total time spent is greater than 50% in coordination of care (as documented) at patient's floor/unit and/or counseling patient: 60 minutes total spent with patient's family on goals of care, transitioning to hospice care 30 minutes on chart review, managing patient, examination, documentation Prolonged Care Time Prolonged Care Time: Yes Total Prolonged Care Time: 60 Critical Care Time: No Coding Level of Care Code 65153 Subseq Hosp Care Lvl 3 Diagnoses Goals of care, counseling/discussion Z71.89 Acute respiratory failure with hypoxemia J96.01 Aspirated gastric contents in lower respiratory tract Acute kidney injury N17.9 Atrial fibrillation I48.91 Sacral decubitus ulcer L89.159 Fever R50.9 Metabolic encephalopathy G93.41 Dysphagia R13.[address] Z93.1 Urinary retention R33.9 Pneumonia due to COVID-19 virus U07.1; J12.89 CKD (chronic kidney disease), stage III N18.3 Coronary artery disease I25.10 Associated angina: without angina Coronary Disease-Associated Artery/Lesion type: [place] artery [place] vs. transplanted heart: [place] heart Type 2 diabetes mellitus E11.22; N18.3 Chronic kidney disease stage: stage 3 (moderate) Diabetes mellitus complication detail: with chronic kidney disease Diabetes mellitus complication status: with kidney complications Diabetes mellitus bed bug exterminator insulin use: without snf use Hypoalbuminemia due to protein-calorie malnutrition E88.09; E46 Pressure ulcer, heel L89.609 PUD (peptic ulcer disease) K27.9 Phimosis N47.1 Hypophosphatemia E83.39 DVT prophylaxis Z29.9 Additional Codes Prolonged Care Time - Prolonged Care Time: Yes ([id number]) (1) Type 2 diabetes mellitus Chronic kidney disease stage: stage 3 (moderate) Diabetes mellitus complication detail: with chronic kidney disease Diabetes mellitus complication status: with kidney complications Diabetes mellitus snf insulin use: without snf use Qualified Code(s): E11.22 - Type 2 diabetes mellitus with diabetic chronic kidney disease; N18.3 - Chronic kidney disease, stage 3 (moderate) (2) Coronary artery disease Associated angina: without angina Coronary Disease-Associated Artery/Lesion type: [place] artery [place] vs. transplanted heart: [place] heart Qualified Code(s): I25.10 - Atherosclerotic heart disease of [place] coronary artery without angina pectoris
[2020-02-13] MEDS: ATORVASTATIN 40 MG TAB GT SCH (08:58)
[2020-02-13] MEDS: carvediloL 6.25 MG TAB GT SCH (08:58)
[2020-02-13] MEDS: DOCUSATE SODIUM SYRUP 100 MG/10 ML UDC GT SCH (08:58)
[2020-02-13] MEDS ORDERED: MULTI VIT W/MINERALS LIQUID 15 ML UDP GT SCH (09:00)
[2020-02-13] MEDS ORDERED: ASPIRIN 81 MG CHEW GT SCH (09:00)
[2020-02-13] MEDS ORDERED: CHLORHEXIDINE GLUCONATE 0.12% 480 ML MT SCH (09:00)
[2020-02-13] MEDS: CLOTRIMAZOLE/BETAMETHASONE CR 15 GM TUBE EXT SCH (09:24)
[2020-02-13] MEDS: PANTOprazole 40 MG in SYRINGE 0 ML IV SCH (09:24)
[2020-02-13] MEDS: THIAMINE HCL 100 MG in SYRINGE 9 ML IV SCH (09:24)
[2020-02-13] MEDS: ONDANSETRON INJ 2 MG/ML 2 ML VIAL IV SCH ×3 (09:24→21:40)
[2020-02-13] MEDS: METOPROLOL TARTRATE 1 MG/ML VIAL IV SCH ×2 (09:25→12:16)
[2020-02-13] MEDS: INSULIN GLARGINE SOLOSTAR 100 UNITS/ML 3 ML PEN SC SCH (09:29)
--- NOTE | 2020-02-13 09:48 | Surgery Progress Note ---
Date of Service February 13, 2020 Assessment & Plan (1) Gastrostomy tube in place: free air normal post-op likely aspiration hold tube feeds per medical team Admission and Anticipated Discharge Date Admission Date: January 12, 2020 Subjective labored breathing likely aspiration abdomen benign Physical Exam Constitutional: + acute distress (mild) Respiratory: + labored breathing Gastrointestinal (Abdomen): Inspection/Auscultation: abdomen normal to inspection; abdomen not distended Percussion/Palpation: abdomen soft; abdomen nontender Results & Data ([facility] Vital Signs (Past 12 Hours) Vital Signs Temp Pulse Pulse Resp BP BP Pulse Ox 02/13/20 09:25 110 H 109/72 02/13/20 07:49 36.8 C 104 H 18 109/72 96 02/13/20 03:45 103 H 38 H 95 02/13/20 03:05 36.6 C 100 H 16 112/77 95 02/13/20 02:31 37.4 C 02/12/20 23:29 38.1 C H 115 H 24 120/62 93 02/12/20 22:06 83 39 H 92 02/12/20 21:56 87 32 H 88 L
--- NOTE | 2020-02-13 10:56 | Pharmacy Report ---
Pharmacy Glycemic Short Note 2 - Date of Service February 13, 2020 - Glycemic Short BSG Results (Last 24 hours): 02/12/20 02/12/20 02/12/20 11:42 15:50 20:00 Glucose POC Glucose 287 H 187 H 93 02/13/20 02/13/20 02/13/20 00:26 04:19 07:08 Glucose 216 H POC Glucose 199 H 260 H 02/13/20 07:27 Glucose POC Glucose 196 H OUTPATIENT ANTIDIABETIC REGIMEN: * amaryl, metformin, januvia * HbA1c: 9.7% (11/29/19) ASSESSMENT: 02/12 * Patient requiring 76 units of insulin yesterday, of which 25 were basal insulin * Fasting BSG 196 mg/dl - received phone call from RN and tube feeds now on hold / will give 10 units of basal for this AM * Per RN, patient to come in to discuss goals of care PLAN FOR INPATIENT GLYCEMIC CONTROL: * Hold outpatient oral diabetes medications * Basal insulin * Lantus 10 units this AM * Bolus insulin - * Novolog SQ Q 6 hrs * Goal range: 120 -160 mg/dL * Correction factor: 20 mg/dL/unit * Carb coverage based on tube feed rate: *feeds on hold
[2020-02-13] MEDS ORDERED: VANCOMYCIN TROUGH ONE (11:30)
[2020-02-13] MEDS ORDERED: ATROPINE SULFATE 1% OP SOLN 5 ML BTL SL PRN (11:59)
[2020-02-13] MEDS ORDERED: ONDANSETRON INJ 2 MG/ML 2 ML VIAL IV PRN (11:59)
[2020-02-13] MEDS ORDERED: LORazepam 0.5 MG/1 ML VIAL IV PRN (11:59)
[2020-02-13] MEDS ORDERED: INSULIN ASPART 100 UNITS/ML 3 ML PEN SC SCH (12:00)
[2020-02-13] MEDS: MoRPHine SULFATE 2 MG/ML CARP IV PRN ×2 (12:25→16:08)
[2020-02-14] MEDS ORDERED: CEFEPIME 2,000 MG in SYRINGE 0 ML IV SCH (04:00)
[2020-02-14] MEDS: ONDANSETRON INJ 2 MG/ML 2 ML VIAL IV SCH ×2 (04:20→07:43)
[2020-02-14 07:43] VITALS: PULSE 118
--- NOTE | 2020-02-14 08:03 | Surgery Progress Note ---
Date of Service February 14, 2020 Assessment & Plan (1) Gastrostomy tube in place: POD 4 comfort care Admission and Anticipated Discharge Date Admission Date: January 12, 2020 Supervising Physician Co-Signing Physician Notes Patient seen and examined, weekend events, labs and imaging reviewed, agree with above. POD #4 open gastrostomy tube placement. After restarting feeds and apparent aspiration event and has now been placed on comfort measures. On exam he is minimally responsive. His incision is clean dry and intact with Dermabond in place and no evidence of infection. Gastrostomy tube in place. Abdomen is nondistended, and appropriately tender to palpation at the incision site. Surgery will follow peripherally, please call with questions or concerns. Subjective weekend events noted Physical Exam Gastrointestinal (Abdomen): Inspection/Auscultation: + abdominal surgical incision (clean, dry) Percussion/Palpation: abdomen soft Results & Data ([facility]) Vital Signs (Past 12 Hours) Vital Signs Temp Pulse Resp BP Pulse Ox 02/14/20 07:00 36.8 C 118 H 18 115/69 96 PG Care Time/CCT Total # of Minutes Spent Total Time Spent with Patient: Total time spent is greater than 50% in coordination of care (as documented) at patient's floor/unit and/or counseling patient: Coding Level of Care Code None Diagnoses Gastrostomy tube in place Z93.1
--- NOTE | 2020-02-14 09:44 | Hospitalist Progress Note ---
Date of Service February 14, 2020 Assessment & Plan (1) Goals of care, counseling/discussion: long discussion on 02/13/20 about prognosis, goals of care continue this discussion today, he stabilized over night, comfortable on 3L again talked about how tube feeds would prolong suffering at this time patient more alert, seems to understand basic things explained that we had stopped specific treatments, focusing on comfort he nodded his head in agreement, happy to have his at his side placed order for comfort measures only, stop all medications Morphine 2mg IV q1 PRN, if not sufficient then place on drip Atropine drops for secretions Ativan IV for any agitation family can visit at the bedside for end of life visits will ask palliative care to see patient today, speak with family about goals of care, hospice either home vs inpatient (2) Acute respiratory failure with hypoxemia: sudden desaturation in afternoon on 01/31 with hypoxemia requiring 15L oxymask and BIPAP briefly CXR only showed persistent infiltrates BNP was not markedly elevated he was also in afib with RVR at the time most likely explanation was refeeding syndrome versus rapid atrial fibrillation moved to PCU since that time Had a recurrent exact episode on 02/06 of rapid atrial fibrillation and hypoxia as above. Was then weaned down to 3-4 L Chest x-ray with persistent bilateral airspace opacities not worse than previous Have been treating empirically for pneumonia with cefepime and vancomycin as above-continue antibiotics for now received Lasix yesterday and last night, no improvement in respiratory status now with aspiration event after vomiting 1/2 acute worsening, RR in the 30's, requiring BIPAP today patient is comfortable on 3L, likely that he cleared his aspiration event explained to family that he is high risk for another event and rapid decompensation tube feeds would further increase this risk with possible vomiting (3) Aspirated gastric contents in lower respiratory tract: 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, immediate respiratory distress clearly has difficulty handling secretions, rattling in throat, very weak cough required BIPAP to maintain saturations but this is not a solution to issue transition to comfort care (4) Acute kidney injury: Cr up to 1.9 on 02/12 from 1.1 previously likely from two doses of Lasix on 02/11 volume contracted no fluids as will make him comfort care (5) Atrial fibrillation: new diagnosis on 01/31 Afterwards, had sinus with PACs and some brief runs of afib for many days with rates in the 70s-80s without any rate control Appreciate cardiology consultation He has a bifascicular block and amiodarone would not be a good option at this time was treated with Coreg via PEG and Lopressor IV PRN Lovenox for full anticoagulation stopped now for comfort care (6) Sacral decubitus ulcer: Pressure ulcer of sacral region, unstageable, POA Nurse noted foul odor on 02/06 Wound culture taken-growing skin sam only -Follow blood cultures-NGTD Continue wound care, offload pressure now on comfort care (7) Fever: With rigors and fever to 37.6 on the morning of 02/06 IV Tylenol given. Thought to be possibly from worsening sacral decubitus ulcer with foul-smelling wound culture with normal skin sam However, chest x-ray with bilateral infiltrates stable from previous, but could have superimposed bacterial pneumonia on top of previous Covid-19 pneumonia, healthcare associated pneumonia no fever today, stop antibiotics with comfort care goal (8) Metabolic encephalopathy: Due to COVID 19, delirium had been improved significantly overall compared to previous throughout the whole last week of January mental status is touch and go today, he recognizes family and responds appropriately, overall he is very fatigued and lethargic (9) Dysphagia: Has failed numerous swallowing evaluations throughout his month-long stay Had NG tube in place at times which were pulled out by the patient due to i ntolerance Treated for oral candidiasis with Diflucan and nystatin PEG tube placement attempted (after multiple delays for various reasons throughout the week) on 02/08, but stomach too high under the ribs and was unable to be placed Consulted general surgery for G-tube placement-plan for 02/09-now placed and procedure went well keep strictly NPO as high aspiration risk started on tube feeds with vitamin replacement however, he 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 and 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 2- 1 tube feeds stopped, comfort care (10) Gastrostomy tube in place: as above, placed on 02/09 Appreciate Surgery consult wound care as per Surgery With abdominal pain noted on 02/11 causing significant agitation-abdomen remained soft NG tube in place KUB on 02/11 with nonobstructive bowel pattern (11) Urinary retention: dennis pulled 02/02 since he was alert and communicating, getting OOB to chair he became agitated, swinging at nurses and staff on 02/02 and 02/03 straight cath for 600mL Replaced dennis catheter on 02/03 as he will likely continue to retain and will be a source of agitation can follow up with urology as outpatient, keep dennis on discharge Urology consulted now for phimosis as well (12) Pneumonia due to COVID-19 virus: Chest x-ray on admission had progressed significantly since his previous hospital stay a few days prior. Now back on oxygen as above for possible recurrent bacterial pneumonia He did not receive remdesivir due to renal insufficiency and he was 10+ days out from illness when he presented. repeat rapid COVID is NEGATIVE and he is off precautions Chest x-ray with persistent bilateral airspace opacities-treating empirically with cefepime and vancomycin as above and could have bacterial pneumonia (13) CKD (chronic kidney disease), stage III: Baseline CrCL 30s/40s. - Cr up to 1.9 today after Lasix yesterday (14) Coronary artery disease: No evidence of ACS, has a history of stents placed in 2019. No chest pain (15) Type 2 diabetes mellitus: Pharmacy glycemic consult placed. Glucose fairly well controlled (16) Hypoalbuminemia due to protein-calorie malnutrition: Severe protein calorie malnutrition Albumin low at 1.6 Secondary to extremely poor nutrition throughout due to dysphagia Now status post placement of G-tube and starting tube feeds now comfort care (17) Pressure ulcer, heel: Pressure ulcer R heel, stage 2, not POA Wound care, offload pressure (18) PUD (peptic ulcer disease): noted on EGD to have multiple duodenal nonbleeding cratered ulcers and grade 3 esophagitis treated with Protonix IV now comfort (19) DVT prophylaxis: Lovenox 1mg/kg BID due to afib - stopped for comfort care Disposition- comfort care Admission and Anticipated Discharge Date Admission Date: January 12, 2020 Subjective patient comfortable this morning on 3L, no distress at all, at the bedside holding his hand she asks about when/if his swallowing will improve, I explained that I don't think it will improve any time soon if at all I spoke with patient's daughter Katelyn over the phone, she asked about anything else we could do now that he is stable specifically discussed tube feeds again, I explained that tube feeds would really just serve to prolong suffering at this point he is so weak and deconditioned, cannot do therapy, would have same concerns about aspirating tube feeds I spoke with patient, he was lethargic and asked where he was, he recognized his [place] at the bedside I explained that yesterday he was in respiratory distress, requiring BIPAP we had his whole family come in to see him and discussed goals of care, transitioned him to be comfort only I asked him if he was okay with this decision, to stop treatments, focus on his comfort, he nodded his head in agreement did not speak too much, asked where he was, asked about Katelyn I will ask Dr. Echevarria to see the patient and speak with family about palliative care options will move patient to medical floor as he is now comfort care Review of Systems Review of Systems: Unobtainable due to cognitive status (admits to back pain, no dyspnea, could not answer detailed list) Physical Exam Constitutional: well developed, + thin, + frail appearing, + lethargic and + underweight; no acute distress ENMT: Mouth: + dry oral mucous membranes Neck: trachea midline, no thyromegaly Respiratory: normal respiratory effort; no respiratory distress, no labored breathing and no cough Auscultation: lungs clear to auscultation bilaterally and + diminished lung sounds Cardiovascular: Rate/Rhythm: + tachycardic and + irregularly irregular Heart Sounds: normal S1 and normal S2; no murmur Extremities: normal capillary refill; no edema Gastrointestinal (Abdomen): normal bowel sounds, soft, nontender, no hepatosplenomegaly Musculoskeletal: Head/Neck/Chest: normocephalic, head atraumatic and neck supple Extremities: + abnormal strength (generalized weakness) and + muscle atrophy Skin: no rashes, warm and dry Neurologic: CN's II-XI intact bilaterally, moves all extremities and awake; no focal motor deficits Psychiatric: Orientation: oriented to person and cooperative; + not oriented to place and + not oriented to time Results & Data Results & Data ([facility]) Vital Signs (Past 12 Hours) Vital Signs Temp Pulse Resp BP Pulse Ox 02/14/20 07:00 36.8 C 118 H 18 115/69 96 Medications Administered Current Inpatient Medications Atropine Sulfate (Atropine Sulfate 1% Op Soln 5 Ml Btl) 4 drops SL Q1H PRN PRN Reason: Secretions or pulm congestion Stop: 03/14/20 11:58 Lorazepam (Ativan) 0.5 mg in 1 mls @ 1 mls/min IV Q4H PRN PRN Reason: Anxiety/Agitation Stop: 03/14/20 11:58 Morphine Sulfate (Morphine Sulfate 2 Mg/Ml Carp) 2 mg IV Q1H PRN PRN Reason: Pain Stop: 02/26/20 20:20 Last Admin: 02/13/20 16:08 Dose: 2 mg Documented by: Ondansetron HCl (Ondansetron Inj 2 Mg/Ml 2 Ml Vial) 4 mg IV Q6H DERICK Stop: 03/14/20 07:59 Last Admin: 02/14/20 07:43 Dose: 4 mg Documented by: Ondansetron HCl (Ondansetron Inj 2 Mg/Ml 2 Ml Vial) 4 mg IV Q4H PRN PRN Reason: Nausea And Vomiting Stop: 03/14/20 11:58 PG Care Time/CCT Total # of Minutes Spent Total Time Spent with Patient: Total time spent is greater than 50% in coordination of care (as documented) at patient's floor/unit and/or counseling patient: Coding Level of Care Code 68728 Subseq Hosp Care Lvl 2 Diagnoses Goals of care, counseling/discussion Z71.89 Acute respiratory failure with hypoxemia J96.01 Aspirated gastric contents in lower respiratory tract Acute kidney injury N17.9 Atrial fibrillation I48.91 Sacral decubitus ulcer L89.159 Fever R50.9 Metabolic encephalopathy G93.41 Dysphagia R13.[address] Z93.1 Urinary retention R33.9 Pneumonia due to COVID-19 virus U07.1; J12.89 CKD (chronic kidney disease), stage III N18.3 Coronary artery disease I25.10 Coronary Disease-Associated Artery/Lesion type: [place] artery Three Affiliated vs. transplanted heart: [place] heart Associated angina: without angina Type 2 diabetes mellitus E11.22; N18.3 Diabetes mellitus senior care insulin use: without tank terminal gauger use Diabetes mellitus complication status: with kidney complications Diabetes mellitus complication detail: with chronic kidney disease Chronic kidney disease stage: stage 3 (moderate) Hypoalbuminemia due to protein-calorie malnutrition E88.09; E46 Pressure ulcer, heel L89.609 PUD (peptic ulcer disease) K27.9 DVT prophylaxis Z29.9 (1) Coronary artery disease Coronary Disease-Associated Artery/Lesion type: [place] artery Three Affiliated vs. transplanted heart: [place] heart Associated angina: without angina Qualified Code(s): I25.10 - Atherosclerotic heart disease of [place] coronary artery without angina pectoris (2) Type 2 diabetes mellitus Diabetes mellitus senior care insulin use: without senior care use Diabetes mellitus complication status: with kidney complications Diabetes mellitus complication detail: with chronic kidney disease Chronic kidney disease stage: stage 3 (moderate) Qualified Code(s): E11.22 - Type 2 diabetes mellitus with diabetic chronic kidney disease; N18.3 - Chronic kidney disease, stage 3 (moderate)
[2020-02-14 11:07] VITALS: BP 103/53; O2SAT 91
--- NOTE | 2020-02-14 11:38 | Palliative Care Progress Note ---
Date of Service February 14, 2020 Assessment & Plan (1) Palliative care encounter: (2) Dysphagia: Had been on parenteral nutrition. PEG placed but aspirating with feedings. Dr. Harris has spoken with family at length and goal is comfort directed care. I spoke with Mrs. Rodrigez at bedside. She asked again about PPN. I talked with her about data in elderly debilitated individuals shows minimal improvement in nutrition. We discussed that they have tried all possible avenues to help him improve, but unfortunately, despite that, he is nearing his dying time. She does say that him being comfortable is primary goal and understands parenteral nutrition is not a good option for him at this point. She is tearful and processing his terminal prognosis. We discussed continued care here vs home with hospice care. She would like to take him home where family can be with them. She feels that they have adequate family support to care for him at home with hospice support. Discussed with case management and notified Dr. Harris. (3) Pain: With chronic immobility. Morphine available prn. Dose now for comfort. Admission and Anticipated Discharge Date Admission Date: January 12, 2020 Subjective Awake. Grimaces at times. When asked if having pain, his response is " only a little bit ". is at bedside. She is concerned about him not receiving nutrition. "I was hoping that if he had nutrition, we could keep him around longer". Review of Systems Review of Systems: [place] Symptom Assessment Scale Pain 2/3 Dyspnea 1/3 Drowsiness 0/3 Anxiety 0/3 Palliative Performance Score 30% Physical Exam Constitutional: + ill appearing ENMT: dry oral mucosa Respiratory: tachypnea, no accessory muscle use Cardiovascular: Extremities: no edema Skin: warm and dry, no mottling Results & Data ([facility]) Vital Signs (Past 12 Hours) Vital Signs Temp Pulse Pulse Resp BP Pulse Ox 02/14/20 11:04 118 H 34 H 103/53 L 91 02/14/20 07:00 98.2 F 118 H 18 115/69 96 PG Care Time/CCT Total # of Minutes Spent Total Time Spent with Patient: Total time spent is greater than 50% in coordination of care (as documented) at patient's floor/unit and/or counseling patient: Total time spent 40 minutes with more than 50% of time spent on discussing hospice, nutrition, comfort, goals of care. Coding Level of Care Code 29607 Subseq Hosp Care Lvl 3 Diagnoses Palliative care encounter Z51.5 Dysphagia R13.10 Pain R52
[2020-02-14] MEDS: MoRPHine SULFATE 2 MG/ML CARP IV PRN ×2 (12:45→21:43)
[2020-02-15] MEDS: MoRPHine SULFATE 2 MG/ML CARP IV PRN (09:30)
[2020-02-15] MEDS ORDERED: MoRPHine SULFATE 5 MG/0.25 ML UDP PO PRN (12:13)
--- NOTE | 2020-02-15 14:18 | Discharge Summary ---
Date of Service February 15, 2020 Admission HPI Per Admitting Provider 89yo male with h/o CAD, BPH, PAD, CKD stage 3, T2DM, and HTN presents from home via EMS due to worsening COVID-19 symptoms. Patient's history goes back to about 12/31/19 when he developed a cough. Several family members tested positive for COVID-19 around that time and thus he went to the [facility] for COVID-19 testing on 01/01/20. His test ultimately returned positive. He had about 1 week of fevers, anorexia, weakness, 1 episode of vomiting, and simply felt poorly. He presented on 01/08/20 to [facility] due to the above and was admitted for IV hydration. He was discharged on 01/09/20. Never had O2 requirement and thus steroids/plasma/remdesivir were deferred. He returns today with worsening COVID symptoms. He now has loss of taste and smell, worsening cough, worsening dyspnea, confusion, and ongoing fever. Patient's reported to me by phone that his temps have been up to about 102. No vomiting. He has eaten little over the last couple of days. During my bedside assessment he was very confused in addition to being hearing impaired. Very little meaningful history or ROS could be obtained from the patient. Prior to my arrival he received decadron 6mg IV x 1 by ER attending. Principal Diagnosis COVID 19 infection causing pneumonia, delirium, dysphagia Discharge Exam Constitutional well developed, + thin, + frail appearing, + lethargic and + underweight; no acute distress ENMT external ear and nose normal, oropharynx normal (thrush resolved) Mouth: + dry oral mucous membranes Neck trachea midline, no thyromegaly Respiratory normal respiratory effort; no respiratory distress, no labored breathing and no cough Auscultation: lungs clear to auscultation bilaterally and + diminished lung sounds Cardiovascular RRR, no murmur, no edema (occasional irregular beat) Rate/Rhythm: + tachycardic and + irregularly irregular Heart Sounds: normal S1 and normal S2; no murmur Extremities: normal capillary refill; no edema Gastrointestinal (Abdomen) normal bowel sounds, soft, nontender, no hepatosplenomegaly Musculoskeletal Head/Neck/Chest: normocephalic, head atraumatic and neck supple Extremities: + abnormal strength (generalized weakness) and + muscle atrophy Skin no rashes, warm and dry Neurologic CN's II-XI intact bilaterally, moves all extremities and awake; no focal motor deficits Psychiatric Orientation: oriented to person and cooperative; + not oriented to place and + not oriented to time Discharge Data Allergies Allergy/AdvReac Type Severity Reaction Status Date / Time No Known Drug Allergies Allergy Verified 01/12/20 14:39 Consultations 01/20/20 22:01 Consult Palliative Care Routine 01/30/20 16:26 Consult Gastroenterology Routine 02/02/20 08:16 Consult Anesthesiology Routine 02/07/20 08:14 Consult Cardiology Routine 02/09/20 15:19 Consult General Surgery Routine 02/10/20 08:39 Consult Urology Routine 02/13/20 12:00 Consult Case Management - Discharge Planning Routine Consult Palliative Care Routine Procedures Performed Operation Date: 02/02/20 16:15 <No data on this case meets the specified criteria> Operation Date: 02/03/20 16:00 <No data on this case meets the specified criteria> Operation Date: 02/07/20 16:30 <No data on this case meets the specified criteria> Operation Date: 02/08/20 11:30 <No data on this case meets the specified criteria> Operation Date: 02/09/20 07:45 Actual Procedures p Esophagogastroduodenoscopy(Not Applicable) - Tanesha Martinez DO Operation Date: 02/10/20 09:50 Actual Procedures p Open Gastric Tube Placement(Not Applicable) - Suhas Young DO, FACS Ordered Studies 01/31/20 09:30 US abdomen ltd ascites Routine 02/09/20 16:55 CT abd pelvis wo con Routine Hospital Course (1) Goals of care, counseling/discussion: long discussion on 02/13/20 about prognosis, goals of care continue this discussion on 02/13 and 02/14, comfortable on 3L again talked about how tube feeds would prolong suffering at this time patient more alert, seems to understand basic things explained that we had stopped specific treatments, focusing on comfort he nodded his head in agreement, happy to have his at his side placed order for comfort measures only, stop all medications Morphine 2mg IV q1 PRN, if not sufficient then place on drip Atropine drops for secretions Ativan IV for any agitation patient was discharged to home on hospice once equipment delivered was notified by family that he 45 minutes after getting home (2) Acute respiratory failure with hypoxemia: sudden desaturation in afternoon on 01/31 with hypoxemia requiring 15L oxymask and BIPAP briefly CXR only showed persistent infiltrates BNP was not markedly elevated he was also in afib with RVR at the time most likely explanation was refeeding syndrome versus rapid atrial fibrillation moved to PCU since that time Had a recurrent exact episode on 02/06 of rapid atrial fibrillation and hypoxia as above. Was then weaned down to 3-4 L Chest x-ray with persistent bilateral airspace opacities not worse than previous Have been treating empirically for pneumonia with cefepime and vancomycin as above-continue antibiotics for now received Lasix yesterday and last night, no improvement in respiratory status, worsened renal function, Cr up to 1.9 now with aspiration event after vomiting 1/2 acute worsening, RR in the 30's, requiring BIPAP patient is comfortable on 3L, likely that he cleared his aspiration event explained to family that he is high risk for another event and rapid de compensation tube feeds would further increase this risk with possible vomiting family took him home on comfort care after over 30 days in the hospital (3) Aspirated gastric contents in lower respiratory tract: 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, immediate respiratory distress clearly has difficulty handling secretions, rattling in throat, very weak cough required BIPAP to maintain saturations but this is not a solution to issue transition to comfort care (4) Acute kidney injury: Cr up to 1.9 on 02/12 from 1.1 previously likely from two doses of Lasix on 02/11 volume contracted no fluids as will make him comfort care (5) Atrial fibrillation: new diagnosis on 01/31 Afterwards, had sinus with PACs and some brief runs of afib for many days with rates in the 70s-80s without any rate control Appreciate cardiology consultation He has a bifascicular block and amiodarone would not be a good option at this time was treated with Coreg via PEG and Lopressor IV PRN Lovenox for full anticoagulation stopped now for comfort care (6) Sacral decubitus ulcer: Pressure ulcer of sacral region, unstageable, POA Nurse noted foul odor on 02/06 Wound culture taken-growing skin sam only -Follow blood cultures-NGTD Continue wound care, offload pressure now on comfort care (7) Fever: With rigors and fever to 37.6 on the morning of 02/06 IV Tylenol given. Thought to be possibly from worsening sacral decubitus ulcer with foul-smelling wound culture with normal skin sam However, chest x-ray with bilateral infiltrates stable from previous, but could have superimposed bacterial pneumonia on top of previous Covid-19 pneumonia, healthcare associated pneumonia no fever today, stop antibiotics with comfort care goal (8) Metabolic encephalopathy: Due to COVID 19, delirium had been improved significantly overall compared to previous throughout the whole last week of January mental status is touch and go today, he recognizes family and responds appropriately, overall he is very fatigued and lethargic (9) Dysphagia: Has failed numerous swallowing evaluations throughout his month-long stay Had NG tube in place at times which were pulled out by the patient due to intolerance Treated for oral candidiasis with Diflucan and nystatin PEG tube placement attempted (after multiple delays for various reasons throughout the week) on 02/08, but stomach too high under the ribs and was unable to be placed Consulted general surgery for G-tube placement-plan for 02/09-now placed and procedure went well keep strictly NPO as high aspiration risk started on tube feeds with vitamin replacement however, he vomited and aspirated in aquaculture director 02/11- 02/12 tube feeds stopped, comfort care (10) Gastrostomy tube in place: as above, placed on 02/09 Appreciate Surgery consult wound care as per Surgery With abdominal pain noted on 02/11 causing significant agitation-abdomen remained soft NG tube in place KUB on 02/11 with nonobstructive bowel pattern (11) Urinary retention: dennis pulled 02/02 since he was alert and communicating, getting OOB to chair he became agitated, swinging at nurses and staff on 02/02 and 02/03 straight cath for 600mL Replaced dennis catheter on 02/03 as he will likely continue to retain and will be a source of agitation can follow up with urology as outpatient, keep dennis on discharge Urology consulted now for phimosis as well (12) Pneumonia due to COVID-19 virus: Chest x-ray on admission had progressed significantly since his previous hospital stay a few days prior. Now back on oxygen as above for possible recurrent bacterial pneumonia He did not receive remdesivir due to renal insufficiency and he was 10+ days out from illness when he presented. repeat rapid COVID is NEGATIVE and he is off precautions Chest x-ray with persistent bilateral airspace opacities-treating empirically with cefepime and vancomycin as above and could have bacterial pneumonia (13) CKD (chronic kidney disease), stage III: Baseline CrCL 30s/40s. - Cr up to 1.9 today after Lasix yesterday (14) Coronary artery disease: No evidence of ACS, has a history of stents placed in 2019. No chest pain (15) Type 2 diabetes mellitus: Pharmacy glycemic consult placed. Glucose fairly well controlled (16) Hypoalbuminemia due to protein-calorie malnutrition: Severe protein calorie malnutrition Albumin low at 1.6 Secondary to extremely poor nutrition throughout due to dysphagia Now status post placement of G-tube and starting tube feeds now comfort care (17) Pressure ulcer, heel: Pressure ulcer R heel, stage 2, not POA Wound care, offload pressure (18) PUD (peptic ulcer disease): noted on EGD to have multiple duodenal nonbleeding cratered ulcers and grade 3 esophagitis treated with Protonix IV now comfort (19) DVT prophylaxis: Lovenox 1mg/kg BID due to afib - stopped for comfort care Disposition- comfort care Total Time Total Time Spent Total Time Spent (In Minutes): 33 minutes Total Time Includes: Examination of the Patient, Discharge Planning, Medication Reconciliation, Communication With Other Providers (Dr. Echevarria with palliative care) and Other (final discussion with patient's daughter over the phone) Discharge Plan Discharge Items Patient Disposition: Hospice - Home Reason For Visit: COVID 19 PNEUMONIA Discharge Diagnosis: COVID pneumonia COVID delirium Dysphagia with aspiration Atrial fibrillation Condition on Discharge: Fair Goals: keep patient comfortable Activity: Per Instructions section Activity Comment: bedrest, keep comfortable Non-emergency contact: Primary Care Provider Call non-emergency contact if: you have any medication questions and your pain is not controlled Follow-up/Referrals: Miguel Olivares MD [Primary Care Provider] - Diet: Nothing by Mouth Addtl Attending Provider Instructions: Medications: all prior medications stopped MORPHINE: 20mg in 1mL, give 0.25mL (5mg) in mouth as needed for pain or respiratory distress, if this dose is not enough then nurse can instruct you to give more ATROPINE: 4 drops every hour as needed for secretions in the back of the throat Home hospice: arrangements have been made, focus on patient's comfort refer to home nurse if you need help or need questions answered as they will be your resource Sacral wound: can change dressing every other day as needed, turn patient several times a day, home nurse can instruct you will keep dennis catheter in place to prevent urinary incontinence and keep patient comfortable, drain dennis bag as needed, home nurse can help instruct you how would NOT recommend giving the patient anything to drink or eat, he cannot swallow, will cause him to choke and cough and will cause respiratory distress Pending Studies at Discharge: No Stand-Alone Forms: My [facility] Medications and DC Order Prescriptions: New atropine 1 % Drops 4 drp sublingual Q1H PRN (Reason: secretions) Qty: 5 RF: 0 morphine concentrate 100 mg/5 mL (20 mg/mL) solution 5 mg PO Q1H PRN (Reason: pain) Qty: 50 RF: 0 Discontinued aspirin [Adult Aspirin Regimen] 81 mg tablet,delayed release (DR/EC) 81 mg PO QAM RF: 0 carvedilol 25 mg tablet 25 mg PO BID Qty: 180 RF: 3 metformin 1,000 mg tablet 1,000 mg PO BID Qty: 180 RF: 3 atorvastatin 80 mg tablet 80 mg PO HS Qty: 90 RF: 3 glimepiride 4 mg tablet 4 mg PO BID Qty: 180 RF: 3 pantoprazole 40 mg tablet,delayed release (DR/EC) 40 mg PO BID Qty: 180 RF: 3 Januvia 25 mg tablet 25 mg PO HS RF: 0 ondansetron HCl [Zofran] 4 mg tablet 4 mg PO Q8H PRN (Reason: nausea and vomiting) 5 Days Qty: 20 RF: 0 clonidine HCl 0.1 mg tablet 0.1 mg PO DAILY PRN (Reason: Blood Pressure) RF: 0 Discharge Orders: Discharge Order (Routine); Ordered 02/15/20 Ordered By: Carlton Hansen/Other Patient Handouts: What Is Hospice?, Starting Hospice, Hospice The Importance of ..., Hospice Dyspnea Care Admission Data Admit Date/Time: 01/12/20 16:14 Attending Provider: Carlton Harris Admit Provider: Romanie Covington Primary Care Provider: Miguel Olivares Other Providers: [facility],Home Healthcare ; Connie Echevarria ; [facility] ; Shiv Alejandro ; Jhony Dukes ; Rl Maldonado ; Suhas Young ; Ascencion Renteria ; Melissa Juarez Other Interventions: Discharge Summary Assessment (RN) Last Done: 02/15/20 08:46 Coding Level of Care Code D/C Day Management >30 mins Diagnoses Goals of care, counseling/discussion Z71.89 Acute respiratory failure with hypoxemia J96.01 Aspirated gastric contents in lower respiratory tract Acute kidney injury N17.9 Atrial fibrillation I48.91 Sacral decubitus ulcer L89.159 Fever R50.9 Metabolic encephalopathy G93.41 Dysphagia R13.[address] Z93.1 Urinary retention R33.9 Pneumonia due to COVID-19 virus U07.1; J12.89 CKD (chronic kidney disease), stage III N18.3 Coronary artery disease I25.10 Associated angina: without angina Coronary Disease-Associated Artery/Lesion type: [place] artery [place] vs. transplanted heart: [place] heart Type 2 diabetes mellitus E11.22; N18.3 Chronic kidney disease stage: stage 3 (moderate) Diabetes mellitus complication detail: with chronic kidney disease Diabetes mellitus complication status: with kidney complications Diabetes mellitus adjunct faculty for medical terminology insulin use: without adjunct faculty for medical terminology use Hypoalbuminemia due to protein-calorie malnutrition E88.09; E46 Pressure ulcer, heel L89.609 PUD (peptic ulcer disease) K27.9 DVT prophylaxis Z29.9
== END 2020-02-15 15:36 | disposition hospice, home (50) | DRG 853 ==
LOC: ED 12:53 → SUATTDRO 16:14 → 2S 16:14 → 2W 01-14 13:24 → 3N 01-16 05:18 → 2S 02-01 18:15 → 3N 02-14 09:40